=== PATIENT | male | born 1945 | race Caucasian/White ===

== ENCOUNTER 2020-10-09 07:42 | Outpatient (REF) | payer MEDICARE, OTHER, SELFPAY ==
--- NOTE | 2020-10-09 07:45 | CT_ITS ---
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 COMPARISON: Chest x-ray 12/20/[address] chest 08/09/2019 TECHNIQUE: Multidetector volumetric CT imaging of the chest was done. Axial MIP volume rendering provided. Sagittal and coronal reformatted images were obtained. This CT examination was performed using dose optimization techniques as appropriate, variously including the following: *Automated exposure control *Adjustment of mA and/or kV according to patient size (this includes techniques or standardized protocols for targeted exams where dose is matched to indication/reason for exam; i.e. extremities or head) *Use of iterative reconstruction technique DLP: 230 mGy-cm FINDINGS: SIGN INSTALLER: Well-expanded left lung. The right lung is moderately expanded with moderate pleural thickening all around. LUNGS: The right lung is hypoexpanded with bibasilar compressive atelectasis. Minimal atelectatic changes and ground-glass density are seen in the right middle lobe and lingula. There is a patchy opacity in the right upper lobe likely atelectasis or scarring. MEDIASTINUM: Heart size and pulmonary vascularity are normal. There are coronary artery calcifications. No abnormal lymph node or mass seen. No pericardial effusion. The thyroid lobes are symmetrical and normal. PLEURA: There is extensive bilateral pleural thickening and calcification and small loculated basilar pleural effusion. The pleural thickening is more extensive along the right lung apex. AXILLA: No lymphadenopathy. UPPER ABDOMEN: Visualized liver, spleen, pancreas, and bilateral adrenal glands are unremarkable. There is a 2.6 cm cyst upper pole left kidney. Suspect small dependent gallstone measuring 1.1 cm. OSSEOUS STRUCTURES: No lytic or sclerotic process seen. There are median sternotomy sutures from previous intervention. CT/CT chest wo con IMPRESSION: Decreased right lung volume with bibasilar compressive atelectasis. Airspace consolidation seen previously is less appreciated at this time. There is more parenchymal thickening, atelectasis and scarring. Extensive bilateral pleural calcification, thickening and loculated effusions at the base. The pleural thickening is more extensive in the right upper lobe apex. The above findings are most consistent with asbestosis exposure. Continued CT chest followup is recommended yearly.
== END 2020-10-09 07:43 | disposition home or self-care (01) ==
LOC: HO.CT 07:42
PROVIDERS: Visit Provider Hospitalist
DX: J61 Pneumoconiosis due to asbestos and other mineral fibers (principal); J84.10 Pulmonary fibrosis, unspecified
CPT/HCPCS: 71250

== ENCOUNTER 2020-12-04 08:15 | Outpatient (REF) | payer MEDICARE, OTHER, SELFPAY ==
[2020-12-04 11:24] LABS: Estimated Average Glucose 194 mg/dL; Hemoglobin A1c % 8.4 %
[2020-12-04 11:43] LABS: Alanine Aminotransferase 46 U/L (0-40); Anion Gap 14 (12-20); Blood Urea Nitrogen 29 mg/dL (9-16); Carbon Dioxide 33 mmol/L (22-29); Chloride 103 mmol/L (96-108); Estimated Glomerular Filt Rate 37; Glucose Fasting 105 mg/dL (60-99); Potassium 4.7 mmol/L (3.3-5.1); Sodium 145 mmol/L (135-145)
[2020-12-04 12:25] LABS: Creatinine Urine 61.49 mg/dL; Microalbum/Creatinine Ratio Ur 11.3 ug/mg cr
== END 2020-12-04 08:16 | disposition home or self-care (01) ==
LOC: HO.HMGCLDS 08:15
PROVIDERS: PCP Family Medicine; Visit Provider Family Medicine
DX: J61 Pneumoconiosis due to asbestos and other mineral fibers (principal); J84.10 Pulmonary fibrosis, unspecified
CPT/HCPCS: 36415; 80051; 82043; 82550; 82565; 82947; 83036; 84460; 84520

== ENCOUNTER → 2020-12-24 13:15 | Outpatient (BNVA) | payer MEDICARE, OTHER, SELFPAY | PROVIDERS: PCP Family Medicine; Visit Provider Internal Medicine Cardiovascular Disease | DX: I25.10 Atherosclerotic heart disease of native coronary artery without angina pectoris (principal); I10 Essential (primary) hypertension; I35.0 Nonrheumatic aortic (valve) stenosis; Z95.1 Presence of aortocoronary bypass graft | CPT/HCPCS: 93005; 99212 ==

== ENCOUNTER → 2021-01-04 09:57 | Outpatient (BNVA) | payer MEDICARE, OTHER, SELFPAY | PROVIDERS: PCP Family Medicine; Visit Provider Hospitalist | DX: J84.10 Pulmonary fibrosis, unspecified (principal); J61 Pneumoconiosis due to asbestos and other mineral fibers; J96.11 Chronic respiratory failure with hypoxia; J98.4 Other disorders of lung; R91.8 Other nonspecific abnormal finding of lung field | CPT/HCPCS: 99212 ==

== ENCOUNTER 2021-07-07 07:47 | Outpatient (REF) | payer MEDICARE, OTHER, SELFPAY ==
[2021-07-07 11:39] LABS: Alanine Aminotransferase 29 U/L (0-40); Anion Gap 14 (12-20); Blood Urea Nitrogen 35 mg/dL (9-16); Carbon Dioxide 29 mmol/L (22-29); Chloride 102 mmol/L (96-108); Cholesterol 166 mg/dL; Estimated Glomerular Filt Rate 40; Glucose Fasting 185 mg/dL (60-99); HDL Cholesterol 70 mg/dL; LDL Cholesterol Calculated 72 mg/dl; Potassium 4.2 mmol/L (3.3-5.1); Sodium 141 mmol/L (135-145); Triglycerides 123 mg/dL
[2021-07-07 12:05] LABS: Estimated Average Glucose 189 mg/dL; Hemoglobin A1c % 8.2 %
== END 2021-07-07 07:48 | disposition home or self-care (01) ==
LOC: HO.HMGCLDS 07:47
PROVIDERS: PCP Family Medicine; Visit Provider Family Medicine
DX: I10 Essential (primary) hypertension (principal); E78.00 Pure hypercholesterolemia, unspecified; E11.9 Type 2 diabetes mellitus without complications; Z79.899 Other long term (current) drug therapy
CPT/HCPCS: 36415; 80051; 80061; 82550; 82565; 82947; 83036; 84460; 84520

== ENCOUNTER → 2021-08-04 11:07 | Outpatient (BNVA) | payer MEDICARE, OTHER, SELFPAY | PROVIDERS: PCP Family Medicine; Visit Provider Internal Medicine Cardiovascular Disease | DX: I35.0 Nonrheumatic aortic (valve) stenosis (principal); I10 Essential (primary) hypertension; Z95.1 Presence of aortocoronary bypass graft | CPT/HCPCS: 99212 ==

== ENCOUNTER 2021-12-09 08:22 | Outpatient (REF) | payer MEDICARE, OTHER, SELFPAY ==
[2021-12-09 11:20] LABS: MANUAL DIFF FLAG NO
[2021-12-09 11:27] LABS: Basophils Percent Auto 0.2 % (0-2); Eosinophils Absolute Auto 0.2 X10*3/uL (0.0-0.4); Hematocrit 40.4 % (42.0-52.0); Hemoglobin 13.9 g/dl (14.0-18.0); Imm Gran Abs Auto 0.01 X10*3/uL (0.00-0.03); Imm Gran Pct Auto 0.2 % (0.0-0.4); Lymphocytes Absolute Auto 1.5 X10*3/uL (1.2-4.9); Lymphocytes Percent Auto 24.4 % (20-40); Mean Corpuscular HGB Conc 34.4 g/dl (31.0-36.0); Mean Corpuscular Hemoglobin 31.4 pg (27.0-33.0); Mean Corpuscular Volume 91.4 fL (80.0-98.0); Mean Platelet Volume 11.1 fL (9.4-12.4); Monocytes Absolute Auto 0.5 X10*3/uL (0.1-1.2); Monocytes Percent Auto 7.8 % (2-11); Neutrophils Absolute Auto 3.9 x10*3/uL (2.0-8.3); Neutrophils Percent Auto 64.4 % (45-73); Platelet Count 164 X10*3/uL (160-400); Red Blood Count 4.42 X10*6/uL (4.60-5.80); Red Cell Distribution Width 12.3 % (11.0-16.0)
[2021-12-09 11:43] LABS: Estimated Average Glucose 252 mg/dL; Hemoglobin A1c % 10.4 %
[2021-12-09 11:54] LABS: Alanine Aminotransferase 29 U/L (0-40); Anion Gap 11 (12-20); Aspartate Amino Transferase 21 U/L (5-37); Blood Urea Nitrogen 37 mg/dL (9-16); Carbon Dioxide 31 mmol/L (22-29); Chloride 103 mmol/L (96-108); Cholesterol 162 mg/dL; Estimated Glomerular Filt Rate 36; Glucose Fasting 225 mg/dL (60-99); HDL Cholesterol 64 mg/dL; Iron 106 mcg/dL (45-160); LDL Cholesterol Calculated 82 mg/dl; Percent Iron Saturation 34 % (15-50); Potassium 4.4 mmol/L (3.3-5.1); Sodium 141 mmol/L (135-145); Total Iron Binding Capacity 311 mcg/dL (228-428); Triglycerides 80 mg/dL; Unsaturated Iron Binding 205 ug/dL
== END 2021-12-09 08:23 | disposition home or self-care (01) ==
LOC: HO.HMGCLDS 08:22
PROVIDERS: Visit Provider Family Medicine
DX: I10 Essential (primary) hypertension (principal); E11.9 Type 2 diabetes mellitus without complications; E78.00 Pure hypercholesterolemia, unspecified; D50.9 Iron deficiency anemia, unspecified; Z79.899 Other long term (current) drug therapy
CPT/HCPCS: 36415; 80051; 80061; 82550; 82565; 82947; 83036; 83540; 84450; 84460; 84520; 85025

== ENCOUNTER 2022-02-14 07:47 | Outpatient (REF) | payer MEDICARE, OTHER, SELFPAY ==
[2022-02-14 11:38] LABS: Glucose Fasting 92 mg/dL (60-99)
[2022-02-14 12:03] LABS: Estimated Average Glucose 197 mg/dL; Hemoglobin A1c % 8.5 %
[2022-02-14 12:08] LABS: Creatinine Urine 68.49 mg/dL; Microalbum/Creatinine Ratio Ur 14.6 ug/mg cr
== END 2022-02-14 07:48 | disposition home or self-care (01) ==
LOC: HO.HMGCLDS 07:47
PROVIDERS: Visit Provider Family Medicine
DX: E11.9 Type 2 diabetes mellitus without complications (principal)
CPT/HCPCS: 36415; 82043; 82947; 83036

== ENCOUNTER 2022-03-22 11:22 | Outpatient (REF) | payer MEDICARE, OTHER, SELFPAY ==
[2022-03-22 12:07] LABS: COVID-19 Test Negative (Negative); IDNOW Serial# 16C4AD1C
== END 2022-03-22 11:23 | disposition home or self-care (01) ==
LOC: HO.LAB 11:22
PROVIDERS: PCP Family Medicine; Referring Provider Family Medicine; Visit Provider Internal Medicine
DX: Z20.822 Contact with and (suspected) exposure to COVID-19 (principal)
CPT/HCPCS: 87635; C9803

== ENCOUNTER 2022-04-08 12:20 | Outpatient (REF) | payer MEDICARE, OTHER, SELFPAY ==
--- NOTE | ~2022-04-08 | XR_ITS ---
EXAMINATION: XR CHEST CLINICAL INFORMATION: Shortness of breath. Dyspnea. COMPARISON: 12/20/2019 TECHNIQUE: 2 views of the chest were obtained. FINDINGS: Median sternotomy wires appear intact. The lungs are well expanded. Small bilateral pleural effusions with atelectasis. Fluid extends to the right apex, similar to multiple prior imaging. No edema. Chronic markings at the lower lungs. No pneumothorax. The cardiomediastinal silhouette is unchanged. XR/XR chest 2V IMPRESSION: Similar appearance of bilateral small pleural effusions. Persistent fluid tracking to the right apex. No new consolidation. Chronic markings at the lower lungs.
[2022-04-08 12:30] LABS: MANUAL DIFF FLAG NO
[2022-04-08 13:10] LABS: Basophils Percent Auto 0.1 % (0-2); Eosinophils Absolute Auto 0.2 X10*3/uL (0.0-0.4); Eosinophils Percent Auto 2.5 % (0-4); Hematocrit 42.4 % (42.0-52.0); Hemoglobin 14.7 g/dl (14.0-18.0); Imm Gran Abs Auto 0.03 X10*3/uL (0.00-0.03); Imm Gran Pct Auto 0.3 % (0.0-0.4); Lymphocytes Absolute Auto 1.1 X10*3/uL (1.2-4.9); Lymphocytes Percent Auto 11.6 % (20-40); Mean Corpuscular HGB Conc 34.7 g/dl (31.0-36.0); Mean Corpuscular Hemoglobin 31.4 pg (27.0-33.0); Mean Corpuscular Volume 90.6 fL (80.0-98.0); Mean Platelet Volume 10.6 fL (9.4-12.4); Monocytes Absolute Auto 0.7 X10*3/uL (0.1-1.2); Monocytes Percent Auto 7.1 % (2-11); Neutrophils Absolute Auto 7.4 x10*3/uL (2.0-8.3); Neutrophils Percent Auto 78.4 % (45-73); Platelet Count 205 X10*3/uL (160-400); Red Blood Count 4.68 X10*6/uL (4.60-5.80); Red Cell Distribution Width 12.8 % (11.0-16.0); White Blood Count 9.5 X10*3/uL (4.8-10.8)
[2022-04-08 13:44] LABS: Anion Gap 15 (12-20); Blood Urea Nitrogen 35 mg/dL (9-16); Carbon Dioxide 28 mmol/L (22-29); Chloride 96 mmol/L (96-108); Estimated Glomerular Filt Rate 31; Potassium 4.3 mmol/L (3.3-5.1); Sodium 135 mmol/L (135-145)
== END 2022-04-08 12:21 | disposition home or self-care (01) ==
LOC: HO.XRAY 12:20
PROVIDERS: PCP Family Medicine; Visit Provider Family Medicine
DX: R06.02 Shortness of breath (principal); I25.10 Atherosclerotic heart disease of native coronary artery without angina pectoris; D50.9 Iron deficiency anemia, unspecified; I10 Essential (primary) hypertension
CPT/HCPCS: 36415; 71046; 80051; 82565; 84520; 85025

== ENCOUNTER → 2022-05-24 09:41 | Outpatient (BNVA) | payer MEDICARE, OTHER, SELFPAY | PROVIDERS: PCP Family Medicine; Visit Provider Hospitalist | DX: J61 Pneumoconiosis due to asbestos and other mineral fibers (principal); J84.10 Pulmonary fibrosis, unspecified; J96.11 Chronic respiratory failure with hypoxia; J98.4 Other disorders of lung; R91.8 Other nonspecific abnormal finding of lung field | CPT/HCPCS: 94618; 99212 ==

== ENCOUNTER 2022-11-14 13:51 | Outpatient (REF) | payer MEDICARE, OTHER, SELFPAY ==
--- NOTE | ~2022-11-14 | XR_ITS ---
EXAMINATION: XR CHEST CLINICAL INFORMATION: Bronchopneumonia. COMPARISON: Multiple prior studies. Most recent is Chest x-ray 04/08/2022 TECHNIQUE: 2 views of the chest were obtained. FINDINGS: Status post median sternotomy. Cardiac mediastinal contours normal. No pulmonary vascular congestion. Significant pleural density in both the right and left hemithorax, greater on the right and left with associated pleural calcifications consistent with asbestosis exposure. This is chronic remaining similar prior studies. Chronic reticular markings of lungs likely due to linear scarring. No acute airspace disease. No pulmonary vascular congestion. XR/XR chest 2V IMPRESSION: 1. No acute abnormality of chest. 2. Chronic bilateral pleural density with pleural calcifications consistent with asbestosis exposure.
[2022-11-14 15:30] LABS: MANUAL DIFF FLAG NO
[2022-11-14 15:56] LABS: Basophils Percent Auto 0.1 % (0-2); Eosinophils Absolute Auto 0.1 X10*3/uL (0.0-0.4); Eosinophils Percent Auto 1.5 % (0-4); Hematocrit 33.1 % (42.0-52.0); Imm Gran Abs Auto 0.03 X10*3/uL (0.00-0.03); Imm Gran Pct Auto 0.4 % (0.0-0.4); Lymphocytes Absolute Auto 1.1 X10*3/uL (1.2-4.9); Lymphocytes Percent Auto 14.3 % (20-40); Mean Corpuscular HGB Conc 33.2 g/dl (31.0-36.0); Mean Corpuscular Hemoglobin 31.1 pg (27.0-33.0); Mean Corpuscular Volume 93.5 fL (80.0-98.0); Mean Platelet Volume 9.4 fL (9.4-12.4); Monocytes Absolute Auto 0.5 X10*3/uL (0.1-1.2); Monocytes Percent Auto 6.8 % (2-11); Neutrophils Percent Auto 76.9 % (45-73); Platelet Count 224 X10*3/uL (160-400); Red Blood Count 3.54 X10*6/uL (4.60-5.80); Red Cell Distribution Width 13.2 % (11.0-16.0); White Blood Count 7.8 X10*3/uL (4.8-10.8)
[2022-11-14 16:18] LABS: Anion Gap 13 (12-20); Blood Urea Nitrogen 29 mg/dL (9-16); Calcium 8.6 mg/dL (8.4-10.2); Carbon Dioxide 29 mmol/L (22-29); Chloride 104 mmol/L (96-108); Estimated Glomerular Filt Rate 40; Glucose Random 174 mg/dL (60-115); Potassium 4.4 mmol/L (3.3-5.1); Sodium 142 mmol/L (135-145)
[2022-11-14 16:41] LABS: Erythrocyte Sedimentation Rate 100 MM/HR (0-15)
[2022-11-16 06:09] LABS: Immunoglobulin E 21 kU/L (<OR=114)
[2022-11-16 14:33] LABS: IgA 580 mg/dL (70-320); IgG 1196 mg/dL (600-1540); IgM 31 mg/dL (50-300)
== END 2022-11-14 13:52 | disposition home or self-care (01) ==
LOC: HO.XRAY 13:51
PROVIDERS: PCP Family Medicine; Visit Provider Hospitalist
DX: J18.0 Bronchopneumonia, unspecified organism (principal); J84.10 Pulmonary fibrosis, unspecified; J61 Pneumoconiosis due to asbestos and other mineral fibers; J96.11 Chronic respiratory failure with hypoxia; J98.4 Other disorders of lung; R91.8 Other nonspecific abnormal finding of lung field
CPT/HCPCS: 36415; 71046; 80048; 82784; 82785; 85025; 85652; 87070; 87205; 94640; 99212

== ENCOUNTER → 2022-12-08 11:08 | Outpatient (BNVA) | payer MEDICARE, OTHER, SELFPAY | PROVIDERS: PCP Family Medicine; Visit Provider Hospitalist | DX: J18.0 Bronchopneumonia, unspecified organism (principal); J61 Pneumoconiosis due to asbestos and other mineral fibers; J96.11 Chronic respiratory failure with hypoxia; J84.10 Pulmonary fibrosis, unspecified; J98.4 Other disorders of lung; J91.8 Pleural effusion in other conditions classified elsewhere; Z99.81 Dependence on supplemental oxygen | CPT/HCPCS: 99212 ==

== ENCOUNTER 2022-12-13 08:11 | Outpatient (REF) | payer MEDICARE, OTHER, SELFPAY ==
[2022-12-13 11:29] LABS: MANUAL DIFF FLAG NO
[2022-12-13 11:35] LABS: Basophils Percent Auto 0.2 % (0-2); Eosinophils Absolute Auto 0.2 X10*3/uL (0.0-0.4); Hematocrit 39.7 % (42.0-52.0); Hemoglobin 13.3 g/dl (14.0-18.0); Imm Gran Abs Auto 0.01 X10*3/uL (0.00-0.03); Imm Gran Pct Auto 0.2 % (0.0-0.4); Lymphocytes Absolute Auto 1.3 X10*3/uL (1.2-4.9); Lymphocytes Percent Auto 21.6 % (20-40); Mean Corpuscular HGB Conc 33.5 g/dl (31.0-36.0); Mean Corpuscular Hemoglobin 30.6 pg (27.0-33.0); Mean Corpuscular Volume 91.5 fL (80.0-98.0); Mean Platelet Volume 11.2 fL (9.4-12.4); Monocytes Absolute Auto 0.5 X10*3/uL (0.1-1.2); Monocytes Percent Auto 7.6 % (2-11); Neutrophils Percent Auto 66.4 % (45-73); Platelet Count 158 X10*3/uL (160-400); Red Blood Count 4.34 X10*6/uL (4.60-5.80); Red Cell Distribution Width 13.1 % (11.0-16.0); White Blood Count 6.1 X10*3/uL (4.8-10.8)
[2022-12-13 11:57] LABS: Microalbum/Creatinine Ratio Ur 8.7 ug/mg cr
[2022-12-13 11:59] LABS: Anion Gap 16 (12-20); Blood Urea Nitrogen 35 mg/dL (9-16); Carbon Dioxide 24 mmol/L (22-29); Chloride 108 mmol/L (96-108); Estimated Glomerular Filt Rate 30; Glucose Fasting 91 mg/dL (60-99); Potassium 4.6 mmol/L (3.3-5.1); Sodium 143 mmol/L (135-145)
[2022-12-13 12:12] LABS: Estimated Average Glucose 166 mg/dL; Hemoglobin A1c % 7.4 %
== END 2022-12-13 08:12 | disposition home or self-care (01) ==
LOC: HO.HMGCLDS 08:11
PROVIDERS: PCP Psychiatry & Neurology Psychiatry; Visit Provider Family Medicine
DX: I10 Essential (primary) hypertension (principal); E11.9 Type 2 diabetes mellitus without complications; D50.9 Iron deficiency anemia, unspecified
CPT/HCPCS: 36415; 80051; 82043; 82565; 82947; 83036; 84520; 85025

== ENCOUNTER 2023-06-07 09:42 | Outpatient (AMB) | payer MEDICARE, OTHER, SELFPAY ==
[2023-06-07 09:50] VITALS: BP 138/70; PULSE 60; O2SAT 94; BMI 33.1
--- NOTE | 2023-06-07 09:50 | MHC.OFFVIS ---
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 The patient has underlying chronic respiratory failure and is currently using oxygen. He recently had a CT scan of the chest at [facility] demonstrating the ongoing fibrotic changes and pleural effusion. No concerning findings, although, will have to look at the CT scans from [facility]. In the meantime the last several days he started developing worsening respiratory complaints with worsening productive cough reason sputum. He also developed worsening shortness of breath and hypoxia and had to increase his oxygen to 4 L. he has used inhalers in the past without any significant improvement. In the office we did use a nebulizer and he did get some relief, although, he was still having expiratory wheezing. Patient also has been complaining of feeling warm and chills. Denies any sick contacts. 01/04/2022 the patient is here for pulmonary follow-up visit. Since we last spoke the patient did require quadruple bypass surgery. His cardiac status is better at this time. He continues with the oxygen between 2-4 L pulse. He is able to remove the oxygen at rest. He maintains a pulse ox above 90%. His shortness of breath is about the same. [id number] severity. Denies any significant coughing or denies any significant chest pain. The patient did have a CT scan of the chest that was personally by me them still demonstrating the evidence of the asbestos related lung disease likely with some component of asbestos plaques and also some degree of asbestosis resulting in some interstitial lung disease. At this point appears that the disease is burnt-out. The patient does not require any additional prednisone. He does have a restrictive lung disease. And therefore resulting the oxygen requirements. Patient also has some nodular densities. The plan is to repeat the CT scan [address] scan is no different in a year's time that we can hold off on serial CT scans and follow him clinically. 05/24/2022 the patient is here for a pulmonary follow-up visit. the patient complains of dyspnea on exertion. The oxygen does help him. He has been having issues getting oxygen from his [employer] company. In the meantime in the office the patient has been using his oxygen at 4 L pulse. He typically decrease it to 2 L pulse when he is resting. In the office we did do a 6 minute walk test. The patient did appropriately well on the 4 L pulse with activity maintaining a pulse ox above 92%. 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 He has a bilateral pleural effusions also related to the asbestos disease. He is currently being evaluated by Cardiology regarding his underlying cardiovascular disease as well. the patient does need to have a CT scan of the chest to follow-up with his pulmonary nodules his asbestos related lung disease with asbestosis and pulmonary fibrosis. However, will go ahead and postpone the CT scan to his follow-up visit in the springtime. In the meantime if the patient develops any worsening symptoms prior to that he is to call so we can reassess on an earlier time. 11/14/2022 the patient is here for sick visit. The patient has been not feeling well since the last week of October. Started developing worsening cough in addition to shortness of breath. Moderate severity. He was given a course of prednisone which initially helped but then symptoms worsened. He has gotten very weak. He is currently in a wheelchair because very hard for him to walk. Complains of the shortness of breath. He is also very congested. He is bringing up some green grayish sputum. Difficult to expectorate. Moderate severity. His was concerned with his worsening respiratory decompensation and she did want to bring to the ER at some point. The patient was reluctant to do so. Therefore he is here today. We were able to take a listen to his lungs and he does have bilateral crackles but he does have interstitial lung disease from his fibrosis and is asbestos related lung disease. The patient did get a breathing treatment and was able to expectorate his sputum specimen for culture. He also underwent blood work in addition to a chest x-ray. I did briefly look at the x-ray it appeared that he had some slight increase hazy opacity in the left lower and left mid area in conjunction with his chronic disease. The final read was unchanged. However very difficult to assess the abnormal chest x-ray. The patient has been using the oxygen. His oxygen levels have been steady. He has not had to increasing. Therefore, will start the patient on antibiotics to treat him for pneumonia in addition to on lower course dose of prednisone. Will follow-up in a couple weeks. 12/08/2022 the patient is here for a pulmonary follow-up visit. Currently patient is doing better. He completed the antibiotics in the prednisone. He is back to his baseline therapy. He is back to his baseline. We did review his chest x-ray demonstrating bilateral airspace disease consistent with bronchopneumonia. We also reviewed his blood work. We also did try to send a sputum culture although is contaminated by saliva. It could not be process. The patient continues uses oxygen with good effect. Continues to have dyspnea on exertion [id number] severity. Otherwise the patient is at baseline. 06/07/2023 the patient is here for pulmonary follow-up visit. The patient overall is feeling better. He had a bout of a COPD exacerbation and bronchitis which required antibiotics and prednisone. He did improve significantly after the prednisone antibiotics. He is back to his baseline. May was a talk month however because was very humid and hot. He spent a lot of time in the AC. He continues uses oxygen 2 L pulse. He did wonder about a portable oxygen concentrator. I did not advise him for 1 unless he is doing traveling where he may need additional portability outside of the home. But you for the most part he is staying local. The patient did have a chest x-ray which I personally reviewed in November demonstrating increased interstitial lung disease and bilateral pleural effusions. Will go ahead and have him repeat the x-ray sometime in the fall. In addition to this he does use CPAP. CPAP therapy continues to be affecting beneficial. He does get supplies from [employer]. I will send a script over. [facility] Medical History Asbestosis Chronic respiratory failure Chronic restrictive lung disease Pulmonary fibrosis Pulmonary nodules Surgical History (Updated 08/04/21 @ 11:17 by GILBERT Haley) History of open heart surgery Family History (Updated 08/04/21 @ 11:19 by GILBERT Haley) Mother Ovarian cancer Father Heart attack Brother Heart attack Sister Diabetes Social History (Updated 05/24/22 @ 10:02 by GILBERT Mad[place]) Alcohol intake: former Year quit: 1989 Patient Tobacco Use Status: Former Tobacco user Quit Date: YEARS AGO QUIT AT 19 Y/O Tobacco use type: Cigarette Years Smoked: 8 Years Review of Systems Const Denies night sweats ENT Denies change in voice, Denies lip swelling, Denies mouth pain, Reports nasal congestion, Reports nasal discharge and Denies tongue swelling Card Denies chest pain and Reports dyspnea on exertion Resp Denies change in phlegm color, Denies chest congestion, Reports cough, Denies hemoptysis, Denies excessive phlegm production, Denies pain on inspiration, Denies pain with cough and Reports dyspnea on exertion GI Denies abdominal pain Musc Reports abnormal gait and Reports muscle weakness Neuro Denies Neuro-related abnormal movements and Reports abnormal gait Psych Denies no additional complaints Bi/Lymph Denies easy bleeding and Denies lymphadenopathy Aller/Immun Denies lip swelling and Denies tongue swelling Physical Exam Vital Signs: Last Vital Signs Pulse 60 06/07/23 09:50 BP 138/70 06/07/23 09:50 Pulse Ox 94 06/07/23 09:50 Oxygen Delivery Method Room Air 06/07/23 09:50 BMI result Body Mass Index 33.1 Const General: alert HEENT General nose exam: Abnormal external nose present and Nasal discharge present Neck Neck: Yes normal visual inspection, Yes full ROM and Yes no lymphadenopathy Chest Chest palpation & inspection: normal inspection of the chest Resp Auscultation: no crackles, no rales and diminished lung sounds Cardio Rate: regular rate Rhythm: regular rhythm Heart sounds: S1 normal heart sound present and S2 normal heart sound present GI Palpation (GI): Soft to palpation and nontender Auscultation: normal bowel sounds General: Yes no CVA tenderness Back/Spine/Pelvis Back: no CVA tenderness Assessment & Plan Assessment & Plan (1) Pulmonary fibrosis: Code(s): J84.10 - Pulmonary fibrosis, unspecified (2) Asbestosis: Code(s): J61 - Pneumoconiosis due to asbestos and other mineral fibers (3) Chronic respiratory failure: Code(s): J96.10 - Chronic respiratory failure, unspecified whether with hypoxia or hypercapnia Qualifiers: Respiratory failure complication: hypoxia Qualified Code(s): J96.11 - Chronic respiratory failure with hypoxia (4) Chronic restrictive lung disease: Code(s): J98.4 - Other disorders of lung (5) Pulmonary nodules: Code(s): R91.8 - Other nonspecific abnormal finding of lung field Plan Continue oxygen supplementationn Nebulized therapy with DuoNeb q.i.d. diuresis as tolerated CXR F/U 8-12 months Orders: Orders XR chest 2V Today J98.4 - Other disorders of lung Coding Level of Care Code Est Pt Level 4 (50436) Diagnoses Pulmonary fibrosis J84.10 Asbestosis J61 Chronic respiratory failure J96.11 Respiratory failure complication: hypoxia Chronic restrictive lung disease J98.4 Pulmonary nodules R91.8 Time Spent (min) 19
== END 2023-06-07 10:16 | disposition home or self-care (01) ==
PROVIDERS: PCP Family Medicine; Visit Provider Hospitalist
DX: J84.10 Pulmonary fibrosis, unspecified (principal); J61 Pneumoconiosis due to asbestos and other mineral fibers; J96.11 Chronic respiratory failure with hypoxia; J98.4 Other disorders of lung; R91.8 Other nonspecific abnormal finding of lung field
CPT/HCPCS: 99214

== ENCOUNTER → 2023-06-07 09:42 | Outpatient (BNVA) | payer MEDICARE, OTHER, SELFPAY | PROVIDERS: Visit Provider Hospitalist | DX: J98.4 Other disorders of lung (principal); J96.11 Chronic respiratory failure with hypoxia; T57.8X1A Toxic effect of other specified inorganic substances, accidental (unintentional), initial encounter; J68.4 Chronic respiratory conditions due to chemicals, gases, fumes and vapors; J90 Pleural effusion, not elsewhere classified; Y92.9 Unspecified place or not applicable; R91.8 Other nonspecific abnormal finding of lung field; Z87.891 Personal history of nicotine dependence; Z99.81 Dependence on supplemental oxygen | CPT/HCPCS: 99212 ==

== ENCOUNTER 2023-08-23 08:52 | Outpatient (REF) | payer MEDICARE, OTHER, SELFPAY ==
[2023-08-23 11:15] LABS: MANUAL DIFF FLAG NO
[2023-08-23 11:24] LABS: Basophils Percent Auto 0.3 % (0-2); Eosinophils Absolute Auto 0.3 X10*3/uL (0.0-0.4); Eosinophils Percent Auto 4.1 % (0-4); Hematocrit 41.9 % (42.0-52.0); Hemoglobin 14.2 g/dl (14.0-18.0); Imm Gran Abs Auto 0.01 X10*3/uL (0.00-0.03); Imm Gran Pct Auto 0.2 % (0.0-0.4); Lymphocytes Absolute Auto 1.3 X10*3/uL (1.2-4.9); Lymphocytes Percent Auto 21.5 % (20-40); Mean Corpuscular HGB Conc 33.9 g/dl (31.0-36.0); Mean Corpuscular Hemoglobin 31.2 pg (27.0-33.0); Mean Corpuscular Volume 92.1 fL (80.0-98.0); Mean Platelet Volume 10.7 fL (9.4-12.4); Monocytes Absolute Auto 0.6 X10*3/uL (0.1-1.2); Monocytes Percent Auto 9.4 % (2-11); Neutrophils Percent Auto 64.5 % (45-73); Platelet Count 155 X10*3/uL (160-400); Red Blood Count 4.55 X10*6/uL (4.60-5.80); White Blood Count 6.2 X10*3/uL (4.8-10.8)
[2023-08-23 11:33] LABS: Estimated Average Glucose 146 mg/dL; Hemoglobin A1c % 6.7 % (<6.0)
[2023-08-23 11:42] LABS: Alanine Aminotransferase 24 U/L (0-40); Anion Gap 13 (12-20); Aspartate Amino Transferase 23 U/L (5-37); Carbon Dioxide 28 mmol/L (22-29); Chloride 105 mmol/L (96-108); Cholesterol 162 mg/dL (<200); Estimated Glomerular Filt Rate 33; Glucose Fasting 102 mg/dL (60-99); HDL Cholesterol 69 mg/dL (>40); LDL Cholesterol Calculated 78 mg/dL (<100); Potassium 4.2 mmol/L (3.3-5.1); Sodium 142 mmol/L (135-145); Triglycerides 76 mg/dL (<150)
[2023-08-23 14:02] LABS: Blood Urea Nitrogen 38 mg/dL (9-16)
== END 2023-08-23 08:53 | disposition home or self-care (01) ==
LOC: HO.HMGCLDS 08:52
PROVIDERS: PCP Family Medicine; Visit Provider Family Medicine
DX: D50.9 Iron deficiency anemia, unspecified (principal); I10 Essential (primary) hypertension; E11.9 Type 2 diabetes mellitus without complications; E78.00 Pure hypercholesterolemia, unspecified; Z79.899 Other long term (current) drug therapy
CPT/HCPCS: 36415; 80051; 80061; 82550; 82565; 82947; 83036; 84450; 84460; 84520; 85025

== ENCOUNTER 2023-11-30 10:06 | Emergency (ER) | payer MEDICARE, OTHER, SELFPAY ==
[2023-11-30 10:14] VITALS: BP 122/49; PULSE 70; RESP 20; TEMP 37.1; O2SAT 100; BMI 33.0
[2023-11-30 12:00] VITALS: BP 133/67; PULSE 71; RESP 18; TEMP 36.3; O2SAT 91
--- NOTE | 2023-11-30 12:03 | ED_ITS ---
HPI - General Adult General Chief complaint: Epistaxis Stated complaint: nosebleed Time Seen by Provider: 11/30/23 11:58 Source: patient Mode of arrival: ambulatory Limitations: no limitations History of Present Illness HPI narrative: Patient is an 78-year-old male presenting to the emergency department with complaint of epistaxis from right naris for approximately 2 hours prior to arrival. Patient referred to the ED by Dr. Westfall as patient had a scheduled appointment there but was sent here due to nosebleed. Patient reports cold symptoms for the past 1-2 weeks and states nose has been more dry than normal. He also reports that he uses CPAP at night and although the areas humidified, this also dries out his nares. Last night he did apply Vaseline inside his nares to prevent the dryness. He takes a daily aspirin but is not anticoagulated. MD complaint: Epistaxis Onset (ago): hour(s) Associated symptoms: other (Nasal congestion) Treatments prior to arrival: other (dressing) Related Data Home Medications Medication Instructions Recorded Confirmed ascorbate calcium (vitamin C) 500 500 mg PO DAILY 12/24/20 08/04/21 mg tablet aspirin 81 mg tablet,delayed 81 mg PO DAILY 12/24/20 08/04/21 release (Adult Low Dose Aspirin) atorvastatin 80 mg tablet 80 mg PO DAILY 12/24/20 08/04/21 famotidine 10 mg tablet 10 mg PO DAILY 12/24/20 08/04/21 ferrous sulfate 325 mg (65 mg 325 mg PO DAILY 12/24/20 08/04/21 iron) tablet metoprolol tartrate 25 mg tablet 12.5 mg PO BID 12/24/20 08/04/21 multivitamin 1 tab PO DAILY 12/24/20 08/04/21 omega-3 fatty acids 500 mg capsule 500 mg PO DAILY 12/24/20 08/04/21 sertraline 100 mg tablet 200 mg PO DAILY 12/24/20 08/04/21 torsemide 20 mg tablet 20 mg PO DAILY 01/04/21 08/04/21 insulin glargine 100 unit/mL 25 unit subcut QPM 05/24/22 subcutaneous solution (Lantus U-100 Insulin) ipratropium 0.5 mg-albuterol 3 mg ml inhalation QID 05/24/22 (2.5 mg base)/3 mL nebulization soln bupropion HCl 150 mg tablet,12 hr 150 mg PO QAM 11/14/22 sustained-release Oxygen Home Use 12/08/22 nebulizers 12/08/22 Allergies Allergy/AdvReac Type Severity Reaction Status Date / Time No Known Allergies Allergy Verified 11/30/23 10:16 [No Known Allergies*] Review of Systems Review of Systems: As per HPI. Yes all other systems are reviewed and are negative Constitutional: Constitutional: Reports as per HPI [facility] Past Medical History Medical History Asbestosis Chronic respiratory failure Chronic restrictive lung disease Pulmonary fibrosis Pulmonary nodules Surgical History (Updated 08/04/21 @ 11:17 by GILBERT Haley) History of open heart surgery Family History Family History (Updated 08/04/21 @ 11:19 by GILBERT Haley) Mother Ovarian cancer Father Heart attack Brother Heart attack Sister Diabetes Social History Social History (Updated 05/24/22 @ 10:02 by GILBERT Madera) Alcohol intake: former Year quit: 1989 Patient Tobacco Use Status: Former Tobacco user Quit Date: YEARS AGO QUIT AT 19 Y/O Tobacco use type: Cigarette Years Smoked: 8 Years Advance Directives: No Advance Directives Information Provided: Yes Physical Exam ED Vital Signs: Vital Signs - 24 hr 11/30/23 10:14 11/30/23 12:00 Temperature 98.8 F 97.4 F Pulse Rate 70 71 Respiratory Rate 20 18 Blood Pressure 122/49 L 133/67 Pulse Oximetry 100 91 L Oxygen Delivery Method Room Air Room Air BMI result Body Mass Index 33.0 Vital signs have been reviewed and appear to be correct. Blood pressure normal. Heart rate normal. Respiratory rate normal. Temperature normal. Oxygen saturation low, rechecked and found to be 95% on room air. Const General: cooperative, healthy appearing and no acute distress Orientation/consciousness: oriented to person, oriented to place, oriented to time and patient oriented x3 Limitations: no limitations HENMT Head: Yes normocephalic and Yes atraumatic Ears: external ears normal General nose exam: Normal external nose present, Normal nasal mucous membranes and turbinates present, Normal septum present, No nasal discharge present and Other nasal findings present (dried blood noted around nares and on face) Face and sinus: Yes sinuses nontender and Yes face symmetric Mouth: oropharynx normal and moist mucous membranes Throat: Yes uvula midline Eyes Pupils: Equal, round and reactive pupils present Neck Neck: Yes normal visual inspection and Yes supple Resp Effort & Inspection: normal respiratory effort and able to speak in complete sentences Auscultation: clear to auscultation bilaterally Cardio Rate: regular rate Rhythm: regular rhythm Heart sounds: S1 normal heart sound present and S2 normal heart sound present GI Palpation (GI): Soft to palpation and nontender Auscultation: normoactive bowel sounds General: Yes no CVA tenderness Back/Spine/Pelvis Back: no CVA tenderness Skin General skin exam: elasticity normal and turgor normal Neuro General: oriented to person, oriented to place, oriented to time, patient oriented x3, moves all extremities, no focal motor deficits and CN's II-XI intact bilaterally Cranial nerves: Yes Equal, round and reactive pupils present Cognition (Neuro): normal cognition Extrem General: Yes full ROM, Yes no pedal edema and Yes no calf tenderness Psych Mental Status: mental status grossly normal Affect: normal affect Thought process: Normal thought process present Medical Decision Making Medical Decision Making MDM Narrative: Patient is an 78-year-old male presenting to the emergency department with complaint of epistaxis from right naris for approximately 2 hours prior to arrival. On exam patient is awake, A+Ox3, VS WNL, afebrile, normal neurological exam without focal deficits, physical exam findings as above. Given reported symptoms and physical exam findings, initial differential includes epistaxis. Given that bleeding stopped spontaneously while patient was in the waiting room, no additional interventions required at this time. Will refer to ENT for any ongoing symptoms. Patient instructed to follow-up with PCP. Return precautions discussed. Patient verbalized understanding of and agreement with plan. Differential Diagnosis Differential Diagnoses: The differential diagnosis associated with the presentation includes epistaxis External Record Review External record reviewed: Inpatient record, Office record and Outpatient record Discharge Plan Discharge Clinical Impression: Epistaxis Patient Disposition: Home, Self-Care Instructions: Nosebleed (ED) Additional Instructions: You were evaluated in the emergency department today for a nosebleed which stopped spontaneously without intervention. Your nosebleed is likely related to dryness due to your recent cold. You should begin using [id number]-[id number] nasal saline spray to both nostrils several times daily. You should also apply an unscented cream or Vaseline inside your nostrils before you go to bed and use your CPAP machine. Please follow-up with your primary care provider. Return to the emergency department if your nosebleed returns and is unable to be controlled or with any other concerning symptoms. Prescriptions: No Action sertraline 100 mg tablet 200 mg PO DAILY famotidine 10 mg tablet 10 mg PO DAILY multivitamin Tablet 1 tab PO DAILY omega-3 fatty acids 500 mg capsule 500 mg PO DAILY ascorbate calcium (vitamin C) 500 mg tablet 500 mg PO DAILY atorvastatin 80 mg tablet 80 mg PO DAILY metoprolol tartrate 25 mg tablet 12.5 mg PO BID aspirin [Adult Low Dose Aspirin] 81 mg tablet,delayed release (DR/EC) 81 mg PO DAILY ferrous sulfate 325 mg (65 mg iron) tablet 325 mg PO DAILY Lantus U-100 Insulin 100 unit/mL solution 25 unit subcut QPM torsemide 20 mg tablet 20 mg PO DAILY ipratropium-albuterol 0.5 mg-3 mg(2.5 mg base)/3 mL solution for nebulization inhalation QID bupropion HCl 150 mg tablet sustained-release 12 hr 150 mg PO QAM (DME) nebulizers Misc See Rx Instructions .ROUTE Rx Instructions: As directed (DME) Oxygen Home Use Kit See Rx Instructions .ROUTE Rx Instructions: As directed Referrals: Demario Reese [Physician] -
--- NOTE | 2023-11-30 12:22 | PC.NURSE ---
provider stephanie notified po2 91%- pt states he has a cold and hx pulmnonary fibrosis. no distress noted. no nosebleeding now
[2023-11-30 12:30] VITALS: O2SAT 95
== END 2023-11-30 12:33 | disposition home or self-care (01) ==
PROVIDERS: Emergency Provider Emergency Medicine; PCP Family Medicine
DX: R04.0 Epistaxis (principal); R09.81 Nasal congestion; Z79.899 Other long term (current) drug therapy
CPT/HCPCS: 99282; 99284

== ENCOUNTER 2024-01-17 07:53 | Outpatient (REF) | payer MEDICARE, OTHER, SELFPAY ==
[2024-01-17 11:33] LABS: MANUAL DIFF FLAG NO
[2024-01-17 11:41] LABS: Eosinophils Absolute Auto 0.2 X10*3/uL (0.0-0.4); Eosinophils Percent Auto 3.2 % (0-4); Hematocrit 39.9 % (42.0-52.0); Hemoglobin 13.8 g/dl (14.0-18.0); Imm Gran Abs Auto 0.01 X10*3/uL (0.00-0.03); Imm Gran Pct Auto 0.2 % (0.0-0.4); Lymphocytes Absolute Auto 1.3 X10*3/uL (1.2-4.9); Lymphocytes Percent Auto 22.7 % (20-40); Mean Corpuscular HGB Conc 34.6 g/dl (31.0-36.0); Mean Corpuscular Hemoglobin 31.9 pg (27.0-33.0); Mean Corpuscular Volume 92.1 fL (80.0-98.0); Mean Platelet Volume 10.9 fL (9.4-12.4); Monocytes Absolute Auto 0.5 X10*3/uL (0.1-1.2); Monocytes Percent Auto 8.8 % (2-11); Neutrophils Absolute Auto 3.6 x10*3/uL (2.0-8.3); Neutrophils Percent Auto 65.1 % (45-73); Platelet Count 151 X10*3/uL (160-400); Red Blood Count 4.33 X10*6/uL (4.60-5.80); Red Cell Distribution Width 12.8 % (11.0-16.0); White Blood Count 5.5 X10*3/uL (4.8-10.8)
[2024-01-17 12:22] LABS: Alanine Aminotransferase 19 U/L (0-40); Anion Gap 12 (12-20); Aspartate Amino Transferase 19 U/L (5-37); Blood Urea Nitrogen 40 mg/dL (9-16); Carbon Dioxide 28 mmol/L (22-29); Chloride 107 mmol/L (96-108); Cholesterol 160 mg/dL (<200); Estimated Glomerular Filt Rate 36; Glucose Fasting 95 mg/dL (60-99); HDL Cholesterol 69 mg/dL (>40); Iron 86 mcg/dL (45-160); LDL Cholesterol Calculated 78 mg/dL (<100); Percent Iron Saturation 32 % (15-50); Sodium 143 mmol/L (135-145); Total Iron Binding Capacity 268 mcg/dL (228-428); Triglycerides 65 mg/dL (<150); Unsaturated Iron Binding 182 ug/dL
[2024-01-17 12:26] LABS: Creatinine Urine 80.65 mg/dL; Microalbum/Creatinine Ratio Ur 7.4 ug/mg cr (<30)
[2024-01-17 15:33] LABS: Estimated Average Glucose 183 mg/dL
== END 2024-01-17 07:54 | disposition home or self-care (01) ==
LOC: HO.HMGCLDS 07:53
PROVIDERS: PCP Family Medicine; Visit Provider Family Medicine
DX: I10 Essential (primary) hypertension (principal); D64.9 Anemia, unspecified; E78.00 Pure hypercholesterolemia, unspecified; E11.9 Type 2 diabetes mellitus without complications; Z79.899 Other long term (current) drug therapy
CPT/HCPCS: 36415; 80051; 80061; 82043; 82550; 82565; 82570; 82947; 83036; 83540; 84450; 84460; 84520; 85025

== ENCOUNTER → 2024-01-22 08:00 | Outpatient (REF) | payer MEDICARE, OTHER, SELFPAY ==
--- NOTE | 2024-01-22 08:05 | CA_ITS ---
Transthoracic Echocardiogram Patient (Last, First, Middle): Dave Tran D Gender: Male Date of : 1945 Age: 78 Procedure Date: 01/22/2024 Procedure Type: Transthoracic Echocardiogram Location: OP Height: 175.26 cm Weight: 108.86 kg BSA: 2.23 m2 Heart Rate: bpm BP: 152 / 78 mmHg Record Press Supervisor: SHILO Referring MD: Aldo Westfall MD Symptoms: NON RHUEM AORTIC STENOSIS Study Quality: Fair, contrast Conclusions: - The left ventricular systolic function is normal. The calculated ejection fraction is 57% by biplane method. - Evidence suggests grade II (moderate) diastolic dysfunction. - Paradoxical, low-flow, low gradient severe aortic stenosis. Findings Procedure Information Contrast agent, definity, is being given per protocol without apparent complications. Left Ventricle Normal left ventricular cavity size. There is mildly increased left ventricular wall thickness. The left ventricular systolic function is normal. The calculated ejection fraction is 57% by biplane method. There is no evidence of regional wall motion abnormalities. Evidence suggests grade II (moderate) diastolic dysfunction. There is moderate septal asymmetric hypertrophy. Right Ventricle Normal right ventricular cavity size and systolic function. Atria The left atrium is moderately dilated. The right atrium is mildly dilated. Aortic Valve There is severe calcification of the aortic valve. The peak aortic velocity is 3.21 m/s with a calculated peak gradient of 41 mmHg. The mean gradient is 24 mmHg. The aortic valve area is 0.73 cm2. There is no aortic valve regurgitation. Dimensionless index 0.21. Stroke volume index 29ml/m2. Overall, paradoxical, low-flow, low gradient severe aortic stenosis. Mitral Valve There is mild mitral annular calcification. There is trace mitral valve regurgitation. There is no mitral valve stenosis. Pulmonic Valve The pulmonic valve is likely normal. Tricuspid Valve There is mild tricuspid valve regurgitation. Mild to moderate pulmonary hypertension is present. Great Vessels The asc aorta is normal in size. Venous The inferior vena cava is normal in size and collapses greater than 50% with inspiration. Pericardium/Pleural There is no evidence of pericardial effusion. Prior Study Comparison Changes noted compared to prior study dated: 08/23/2019. Progression of aortic stenosis. Measurements 2D Linear Measurements IVSd: 1.43 0.6-0.9/0.6-1.0 cm LVIDd: 4.06 3.9-5.3/4.2-5.9 cm LVIDd Index: 1.82 2.4-3.2/2.2-3.1 cm/m2 LVIDs: 2.69 2.0-3.6 cm LVPWd: 1.20 0.7-1.1 cm LA Diam: 4.20 2.7-3.8/3.0-4.0 cm LAIDs Index: 1.88 1.5-2.3 cm/m2 LV Mass: 241.79 67-162/88-224 g LV Mass Index: 108.43 43-95/49-115 g/m2 LVOT Diam: 2.10 3.0+(-)1.3 cm 2D Systolic Function EF 4C: 55.10 >55% EF 2C: 56.30 >55% EF BiP: 57.10 >55% Mitral Valve MV Pk E: 0.97 MV PK A: 0.95 MV Decel Time: 199.00 E/A: 1.00 E'Lateral: 8.16 E'Medial: 5.22 E/E' Med: 18.60 E/E' Lat: 11.90 PHT: 58.00 MVA PHT: 3.79 Decel Boone: 4.89 Aortic Valve AoV Pk Clayton: 3.21 AoV Mn Clayton: 2.26 AoV VTI: 0.89 AoV Pk Grad: 41.00 Aov Mn Grad: 24.00 MISTY Cont.VTI: 0.73 LVOT LVOT Pk Clayton: 0.68 LVOT Mn Clayton: 0.49 LVOT VTI: 0.19 LVOT Pk Grad: 2.00 LVOT Mn Grad: 1.00 LVOT Diam: 2.10 LVOT Area: 3.46 Diastolic Function MV Pk E: 0.97 MV Pk A: 0.95 E/A: 1.00 E'Medial: 5.22 E/E' Med: 18.60 E' Laterial: 8.16 E/E' Lat: 11.90 Right Ventricle TAPSE (mm): 19.80 TVS' Clayton: 10.20 Tricuspid Valve TR Pk Clayton: 3.23 TR Pk Grad: 42.00 RA Press: 8.00 RVSP: 50.00 Great Vessels Aorta Sinus of Valsalva: 3.51 2.0-3.[address] [place]: 2.38 1.7-3.4 cm Ao Asc: 3.90 2.1-3.4 cm Updated in Other Vendor System with Status of Final Rocky Rouse MD electronically signed on 01/22/2024 12:00:09 PM with status of Final
== END ==
LOC: HO.CARD 08:00
PROVIDERS: PCP Family Medicine; Visit Provider Family Medicine
DX: I35.0 Nonrheumatic aortic (valve) stenosis (principal)
CPT/HCPCS: 93306; Q9957

== ENCOUNTER → 2024-01-22 08:05 | Outpatient (BNV) | payer MEDICARE, OTHER, SELFPAY | PROVIDERS: PCP Family Medicine; Visit Provider Internal Medicine | DX: I35.0 Nonrheumatic aortic (valve) stenosis (principal) | CPT/HCPCS: 93306 ==

== ENCOUNTER 2024-02-07 10:19 | Outpatient (AMB) | payer MEDICARE, OTHER, SELFPAY ==
[2024-02-07 10:22] VITALS: PULSE 76; O2SAT 94; BMI 33.7
--- NOTE | 2024-02-07 10:22 | A.OFFVIS_ITS ---
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 The patient has underlying chronic respiratory failure and is currently using oxygen. He recently had a CT scan of the chest at [facility] demonstrating the ongoing fibrotic changes and pleural effusion. No concerning findings, although, will have to look at the CT scans from [facility]. In the meantime the last several days he started developing worsening respiratory complaints with worsening productive cough reason sputum. He also developed worsening shortness of breath and hypoxia and had to increase his oxygen to 4 L. he has used inhalers in the past without any significant improvement. In the office we did use a nebulizer and he did get some relief, although, he was still having expiratory wheezing. Patient also has been complaining of feeling warm and chills. Denies any sick contacts. 01/04/2022 the patient is here for pulmo nary follow-up visit. Since we last spoke the patient did require quadruple bypass surgery. His cardiac status is better at this time. He continues with the oxygen between 2-4 L pulse. He is able to remove the oxygen at rest. He maintains a pulse ox above 90%. His shortness of breath is about the same. [id number] severity. Denies any significant coughing or denies any significant chest pain. The patient did have a CT scan of the chest that was personally by me them still demonstrating the evidence of the asbestos related lung disease likely with some component of asbestos plaques and also some degree of asbestosis resulting in some interstitial lung disease. At this point appears that the disease is burnt-out. The patient does not require any additional prednisone. He does have a restrictive lung disease. And therefore resulting the oxygen requirements. Patient also has some nodular densities. The plan is to repeat the CT scan [address] scan is no different in a year's time that we can hold off on serial CT scans and follow him clinically. 05/24/2022 the patient is here for a pulm onary follow-up visit. the patient complains of dyspnea on exertion. The oxygen does help him. He has been having issues getting oxygen from his [employer] company. In the meantime in the office the patient has been using his oxygen at 4 L pulse. He typically decrease it to 2 L pulse when he is resting. In the office we did do a 6 minute walk test. The patient did appropriately well on the 4 L pulse with activity maintaining a pulse ox above 92%. 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 He has a bilateral pleural effusions also related to the asbestos disease. He is currently being evaluated by Cardiology regarding his underlying cardiovascular disease as well. the patient does need to have a CT scan of the chest to follow-up with his pulmonary nodules his asbestos related lung disease with asbestosis and pulmonary fibrosis. However, will go ahead and postpone the CT scan to his follow-up visit in the springtime. In the meantime if the patient develops any worsening symptoms prior to that he is to call so we can reassess on an earlier time. 11/14/2022 the patient is here for sick visit. The patient has been not feeling well since the last week of October. Started developing worsening cough in addition to shortness of breath. Moderate severity. He was given a course of prednisone which initially helped but then symptoms worsened. He has gotten very weak. He is currently in a wheelchair because very hard for him to walk. Complains of the shortness of breath. He is also very congested. He is bringing up some green grayish sputum. Difficult to expectorate. Moderate severity. His was concerned with his worsening respiratory decompensation and she did want to bring to the ER at some point. The patient was reluctant to do so. Therefore he is here today. We were able to take a listen to his lungs and he does have bilateral crackles but he does have interstitial lung disease from his fibrosis and is asbestos related lung disease. The patient did get a breathing treatment and was able to expectorate his sputum specimen for culture. He also underwent blood work in addition to a chest x-ray. I did briefly look at the x-ray it appeared that he had some slight increase hazy opacity in the left lower and left mid area in conjunction with his chronic disease. The final read was unchanged. However very difficult to assess the abnormal chest x-ray. The patient has been using the oxygen. His oxygen levels have been steady. He has not had to increasing. Therefore, will start the patient on antibiotics to treat him for pneumonia in addition to on lower course dose of prednisone. Will follow-up in a couple weeks. 12/08/2022 the patient is here for a pulmonary follow-up visit. Currently patient is doing better. He completed the antibiotics in the prednisone. He is back to his baseline therapy. He is back to his baseline. We did review his chest x-ray demonstrating bilateral airspace disease consistent with bronchopne umonia. We also reviewed his blood work. We also did try to send a sputum culture although is contaminated by saliva. It could not be process. The patient continues uses oxygen with good effect. Continues to have dyspnea on exertion [id number] severity. Otherwise the patient is at baseline. 06/07/2023 the patient is here for pulmona ry follow-up visit. The patient overall is feeling better. He had a bout of a COPD exacerbation and bronchitis which required antibiotics and prednisone. He did improve significantly after the prednisone antibiotics. He is back to his baseline. May was a talk month however because was very humid and hot. He spent a lot of time in the AC. He continues uses oxygen 2 L pulse. He did wonder about a portable oxygen concentrator. I did not advise him for 1 unless he is doing traveling where he may need additional portability outside of the home. But you for the most part he is staying local. The patient did have a chest x-ray which I personally reviewed in November demonstrating increased interstitial lung disease and bilateral pleural effusions. Will go ahead and have him repeat the x-ray sometime in the fall. In addition to this he does use CPAP. CPAP therapy continues to be affecting beneficial. He does get supplies from [email or web address]. 02/07/2024 the patient is here for a pulmo narnoe follow-up visit. The patient complains of worsening dyspnea on exertion. He has been noticing he has been having to use his oxygen more regularly. Sometimes he was able to be without the oxygen but now he notis prescribed. Denies any worsening lower extremity edema. He has also been using his respiratory medications. The patient has not had an x-ray in about a year. At this point will request a chest x-ray. Patient also has renal insufficiency so we have to be very careful but he may benefit from couple days of doubling up on the diuretic to try to improve his volume status. The patient also will benefit from pulmonary rehabilitation. Will have him undergo pulmonary function studies in order for him to start pulmonary rehab at this time. [facility] Medical History (Updated 02/07/24 @ 10:31 by Barrera Bello MD) Hypoxia Pulmonary nodules Chronic restrictive lung disease Chronic respiratory failure Pulmonary fibrosis Asbestosis Surgical History (Updated 08/04/21 @ 11:17 by GILBERT Haley) History of open heart surgery Family History (Updated 08/04/21 @ 11:19 by GILBERT Haley) Mother Ovarian cancer Father Heart attack Brother Heart attack Sister Diabetes Social History (Updated 05/24/22 @ 10:02 by GILBERT Madera) Alcohol intake: former Year quit: 1989 Patient Tobacco Use Status: Former Tobacco user Quit Date: YEARS AGO QUIT AT 19 Y/O Tobacco use type: Cigarette Years Smoked: 8 Years Review of Systems Const Denies night sweats ENT Denies change in voice, Denies lip swelling, Denies mouth pain, Reports nasal congestion, Reports nasal discharge and Denies tongue swelling Card Denies chest pain, Reports dyspnea and Reports dyspnea on exertion Resp Denies change in phlegm color, Denies chest congestion, Reports cough, Denies hemoptysis, Denies excessive phlegm production, Denies pain on inspiration, Denies pain with cough, Reports dyspnea and Reports dyspnea on exertion GI Denies abdominal pain Musc Reports abnormal gait and Reports muscle weakness Neuro Denies Neuro-related abnormal movements and Reports abnormal gait Psych Denies no additional complaints Bi/Lymph Denies easy bleeding and Denies lymphadenopathy Aller/Immun Denies lip swelling and Denies tongue swelling Physical Exam Vital Signs: Last Vital Signs Pulse 76 02/07/24 10:22 Pulse Ox 94 02/07/24 10:22 Oxygen Delivery Method Room Air 02/07/24 10:22 BMI result Body Mass Index 33.7 Const General: alert HEENT General nose exam: Abnormal external nose present and Nasal discharge present Neck Neck: Yes normal visual inspection, Yes full ROM and Yes no lymphadenopathy Chest Chest palpation & inspection: normal inspection of the chest Resp Auscultation: no crackles, no rales and diminished lung sounds Cardio Rate: regular rate Rhythm: regular rhythm Heart sounds: S1 normal heart sound present and S2 normal heart sound present GI Palpation (GI): Soft to palpation and nontender Auscultation: normal bowel sounds General: Yes no CVA tenderness Back/Spine/Pelvis Back: no CVA tenderness Assessment & Plan Assessment & Plan (1) Pulmonary fibrosis: Code(s): J84.10 - Pulmonary fibrosis, unspecified (2) Asbestosis: Code(s): J61 - Pneumoconiosis due to asbestos and other mineral fibers (3) Chronic respiratory failure: Code(s): J96.10 - Chronic respiratory failure, unspecified whether with hypoxia or hypercapnia Qualifiers: Respiratory failure complication: hypoxia Qualified Code(s): J96.11 - Chronic respiratory failure with hypoxia (4) Chronic restrictive lung disease: Code(s): J98.4 - Other disorders of lung (5) Pulmonary nodules: Code(s): R91.8 - Other nonspecific abnormal finding of lung field Plan Continue oxygen supplementationn Nebulized therapy with DuoNeb q.i.d. diuresis as tolerated, may increase for a couple days depending on the CXR CXR PFTs Start Pulmonary rehab F/U 6-8 months Orders: Orders XR chest 2V Today R09.02 - Hypoxemia XR chest 2V Today J61 - Pneumoconiosis due to asbestos and other mineral fibers, J84.10 - Pulmonary fibrosis, unspecified, J98.4 - Other disorders of lung PFT pulmonary function test Today J61 - Pneumoconiosis due to asbestos and other mineral fibers, J84.10 - Pulmonary fibrosis, unspecified, J98.4 - Other disorders of lung Pulmonary Rehab Today J61 - Pneumoconiosis due to asbestos and other mineral fibers, J84.10 - Pulmonary fibrosis, unspecified, J98.4 - Other disorders of lung Coding Level of Care Code Est Pt Level 4 (65604) Diagnoses Pulmonary fibrosis J84.10 Asbestosis J61 Chronic respiratory failure with hypoxia J96.11 Respiratory failure complication: hypoxia Chronic restrictive lung disease J98.4 Pulmonary nodules R91.8 Time Spent (min) 17
== END 2024-02-07 10:42 | disposition home or self-care (01) ==
PROVIDERS: PCP Family Medicine; Visit Provider Hospitalist
DX: J84.10 Pulmonary fibrosis, unspecified (principal); J61 Pneumoconiosis due to asbestos and other mineral fibers; J96.11 Chronic respiratory failure with hypoxia; J98.4 Other disorders of lung; R91.8 Other nonspecific abnormal finding of lung field
CPT/HCPCS: 99214

== ENCOUNTER 2024-02-07 10:19 | Outpatient (REF) | payer MEDICARE, OTHER, SELFPAY ==
--- NOTE | ~2024-02-07 | XR_ITS ---
EXAMINATION: XR CHEST CLINICAL INFORMATION: Lung disorder COMPARISON: Chest x-ray November 14, 2022 TECHNIQUE: 2 views of the chest were obtained. FINDINGS: Stable cardiac silhouette. Patient is status post CABG. Chronic bilateral pleural calcifications with unchanged right apical opacity. Similar diffuse prominence of interstitial markings. Unchanged blunting of both costophrenic angles. No large pleural effusion. No pneumothorax. Degenerative changes of the spine. XR/XR chest 2V IMPRESSION: Stable chronic changes of the lungs. No acute pulmonary pathology identified on today's imaging.
== END 2024-02-07 10:20 | disposition home or self-care (01) ==
LOC: HO.XRAY 10:19
PROVIDERS: PCP Family Medicine; Visit Provider Hospitalist
DX: J84.10 Pulmonary fibrosis, unspecified (principal); J61 Pneumoconiosis due to asbestos and other mineral fibers; J18.0 Bronchopneumonia, unspecified organism; J98.4 Other disorders of lung; J44.9 Chronic obstructive pulmonary disease, unspecified; J96.11 Chronic respiratory failure with hypoxia; R91.8 Other nonspecific abnormal finding of lung field; Z99.81 Dependence on supplemental oxygen
CPT/HCPCS: 71046; 99212

== ENCOUNTER 2024-02-21 08:46 | Outpatient (REF) | payer MEDICARE, OTHER, SELFPAY ==
[2024-02-21 09:14] VITALS: PULSE 71; RESP 16; O2SAT 96
--- NOTE | 2024-02-21 11:16 | PFT_ITS ---
Flows: FEV1: 63 % of predicted at 1.42 L FVC: 61 % of predicted at 1.82 L FEV1/FVC: 78 % Bronchodilator response: Absent Volumes: Total lung capacity: 45 % of predicted at 2.60 L Residual volume: 33 % of predicted at 0.86 L Slow vital capacity: 57 % of predicted at 1.74 L Expiratory reserve volume: 63 % of predicted at 0.49 L Diffusion capacity: Moderately decreased, corrects to normal after adjustment for alveolar ventilation. Impression: Moderate restrictive ventilatory defect with no bronchodilator response. Combination of decreased diffusion capacity with restrictive ventilatory defect suggests underlying pulmonary parenchymal disease. Clinical correlation is advised. MTDD
== END 2024-02-21 08:47 | disposition home or self-care (01) ==
LOC: HO.RESP 08:46
PROVIDERS: PCP Family Medicine; Visit Provider Hospitalist
DX: J98.4 Other disorders of lung (principal); J61 Pneumoconiosis due to asbestos and other mineral fibers; J84.10 Pulmonary fibrosis, unspecified
CPT/HCPCS: 94010; 94640; 94727; 94729

== ENCOUNTER → 2024-02-21 11:16 | Outpatient (BNV) | payer MEDICARE, OTHER, SELFPAY | PROVIDERS: PCP Family Medicine; Visit Provider Internal Medicine Pulmonary Disease | DX: J44.9 Chronic obstructive pulmonary disease, unspecified (principal) | CPT/HCPCS: 94060; 94727; 94729 ==

== ENCOUNTER 2024-03-28 09:22 | Outpatient (REF) | payer MEDICARE, OTHER, SELFPAY ==
[2024-03-28 10:42] LABS: Estimated Average Glucose 177 mg/dL; Hemoglobin A1c % 7.8 % (<6.0)
[2024-03-28 10:49] LABS: Glucose Fasting 131 mg/dL (60-99)
== END 2024-03-28 09:23 | disposition home or self-care (01) ==
LOC: HO.HMGCLDS 09:22
PROVIDERS: PCP Family Medicine; Visit Provider Family Medicine
DX: E11.9 Type 2 diabetes mellitus without complications (principal)
CPT/HCPCS: 36415; 82947; 83036

== ENCOUNTER 2024-06-07 09:14 | Outpatient (AMB) | payer MEDICARE, OTHER, SELFPAY ==
[2024-06-07 09:31] VITALS: PULSE 61; O2SAT 92; BMI 33.0
--- NOTE | 2024-06-07 09:31 | A.OFFVIS_ITS ---
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 The patient has underlying chronic respiratory failure and is currently using oxygen. He recently had a CT scan of the chest at [facility] demonstrating the ongoing fibrotic changes and pleural effusion. No concerning findings, although, will have to look at the CT scans from [facility]. In the meantime the last several days he started developing worsening respiratory complaints with worsening productive cough reason sputum. He also developed worsening shortness of breath and hypoxia and had to increase his oxygen to 4 L. he has used inhalers in the past without any significant improvement. In the office we did use a nebulizer and he did get some relief, although, he was still having expiratory wheezing. Patient also has been complaining of feeling warm and chills. Denies any sick contacts. 01/04/2022 the patient is here for pulmonary follow-up visit. Since we last spoke the patient did require quadruple bypass surgery. His cardiac status is better at this time. He continues with the oxygen between 2-4 L pulse. He is able to remove the oxygen at rest. He maintains a pulse ox above 90%. His shortness of breath is about the same. Dhfy-ot-vlrerpea severity. Denies any significant coughing or denies any significant chest pain. The patient did have a CT scan of the chest that was personally by me them still demonstrating the evidence of the asbestos related lung disease likely with some component of asbestos plaques and also some degree of asbestosis resulting in some interstitial lung disease. At this point appears that the disease is burnt-out. The patient does not require any additional prednisone. He does have a restrictive lung disease. And therefore resulting the oxygen requirements. Patient also has some nodular densities. The plan is to repeat the CT scan [address] scan is no different in a year's time that we can hold off on serial CT scans and follow him clinically. 05/24/2022 the patient is here for a pulmonary follow-up visit. the patient complains of dyspnea on exertion. The oxygen does help him. He has been having issues getting oxygen from his [employer] company. In the meantime in the office the patient has been using his oxygen at 4 L pulse. He typically decrease it to 2 L pulse when he is resting. In the office we did do a 6 minute walk test. The patient did appropriately well on the 4 L pulse with activity maintaining a pulse ox above 92%. 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 He has a bilateral pleural effusions also related to the asbestos disease. He is currently being evaluated by Cardiology regarding his underlying cardiovascular disease as well. the patient does need to have a CT scan of the chest to follow-up with his pulmonary nodules his asbestos related lung disease with asbestosis and pulmonary fibrosis. However, will go ahead and postpone the CT scan to his follow-up visit in the springtime. In the meantime if the patient develops any worsening symptoms prior to that he is to call so we can reassess on an earlier time. 11/14/2022 the patient is here for sick visit. The patient has been not feeling well since the last week of October. Started developing worsening cough in addition to shortness of breath. Moderate severity. He was given a course of prednisone which initially helped but then symptoms worsened. He has gotten very weak. He is currently in a wheelchair because very hard for him to walk. Complains of the shortness of breath. He is also very congested. He is bringing up some green grayish sputum. Difficult to expectorate. Moderate severity. His was concerned with his worsening respiratory decompensation and she did want to bring to the ER at some point. The patient was reluctant to do so. Therefore he is here today. We were able to take a listen to his lungs and he does have bilateral crackles but he does have interstitial lung disease f rom his fibrosis and is asbestos related lung disease. The patient did get a breathing treatment and was able to expectorate his sputum specimen for culture. He also underwent blood work in addition to a chest x-ray. I did briefly look at the x-ray it appeared that he had some slight increase hazy opacity in the left lower and left mid area in conjunction with his chronic disease. The final read was unchanged. However very difficult to assess the abnormal chest x-ray. The patient has been using the oxygen. His oxygen levels have been steady. He has not had to increasing. Therefore, will start the patient on antibiotics to treat him for pneumonia in addition to on lower course dose of prednisone. Will follow-up in a couple weeks. 12/08/2022 the patient is here for a pulmonary follow-up visit. Currently patient is doing better. He completed the antibiotics in the prednisone. He is back to his baseline therapy. He is back to his baseline. We did review his chest x-ray demonstrating bilateral airspace disease consistent with bronchopneumonia. We also reviewed his blood work. We also did try to send a sputum culture although is contaminated by saliva. It could not be process. The patient continues uses oxygen with good effect. Continues to have dyspnea on exertion [id number]-oo-ocdybrre severity. Otherwise the patient is at baseline. 06/07/2023 the patient is here for pulmonary follow-up visit. The patient overall is feeling better. He had a bout of a COPD exacerbation and bronchitis which required antibiotics and prednisone. He did improve significantly after the prednisone antibiotics. He is back to his baseline. May was a talk month however because was very humid and hot. He spent a lot of time in the AC. He continues uses oxygen 2 L pulse. He did wonder about a portable oxygen concentrator. I did not advise him for 1 unless he is doing traveling where he may need additional portability outside of the home. But you for the most part he is staying local. The patient did have a chest x-ray which I personally reviewed in November demonstrating increased interstitial lung disease and bilateral pleural effusions. Will go ahead and have him repeat the x-ray sometime in the fall. In addition to this he does use CPAP. CPAP therapy continues to be affecting beneficial. He does get supplies from [employer]. 02/07/2024 the patient is here for a pulmonary follow-up visit. The patient complains of worsening dyspnea on exertion. He has been noticing he has been having to use his oxygen more regularly. Sometimes he was able to be without the oxygen but now he notis prescribed. Denies any worsening lower extremity edema. He has also been using his respiratory medications. The patient has not had an x-ray in about a year. At this point will request a chest x-ray. Patient also has renal insufficiency so we have to be very careful but he may benefit from couple days of doubling up on the diuretic to try to improve his volume status. The patient also will benefit from pulmonary rehabilitation. Will have him undergo pulmonary function studies in order for him to start pulmonary rehab at this time. 06/07/2024 patient is here for a pulmonary follow-up visit. Overall he is doing well. He did start pulmonary rehabilitation he has found that is been affecting beneficial. He has finish the face to program and will start now the face 3. He will continue with his respiratory medications as prescribed. He did have a chest x-ray which I personally reviewed without any significant changes in the pleural thickening as he does have a history asbestos. His oxygen requirements are about the same. Otherwise patient is doing well on the current therapy. No additional imaging warranted. Will follow-up in 6-8 months. If patient has any issues prior to that he will call for an earlier assessment. [facility] Medical History (Updated 02/07/24 @ 10:31 by Barrera Bello MD) Hypoxia Pulmonary nodules Chronic restrictive lung disease Chronic respiratory failure Pulmonary fibrosis Asbestosis Surgical History (Updated 08/04/21 @ 11:17 by GILBERT Haley) History of open heart surgery Family History (Updated 08/04/21 @ 11:19 by GILBERT Haley) Mother Ovarian cancer Father Heart attack Brother Heart attack Sister Diabetes Social History (Updated 05/24/22 @ 10:02 by GILBERT Madera) Alcohol intake: former Year quit: 1989 Patient Tobacco Use Status: Former Tobacco user Tobacco use type: Cigarette Years Smoked: 8 Years Review of Systems Const Denies night sweats ENT Denies change in voice, Denies lip swelling, Denies mouth pain, Reports nasal congestion, Reports nasal discharge and Denies tongue swelling Card Denies chest pain, Reports dyspnea and Reports dyspnea on exertion Resp Denies change in phlegm color, Denies chest congestion, Reports cough, Denies hemoptysis, Denies excessive phlegm production, Denies pain on inspiration, Denies pain with cough, Reports dyspnea and Reports dyspnea on exertion GI Denies abdominal pain Musc Reports abnormal gait and Reports muscle weakness Neuro Denies Neuro-related abnormal movements and Reports abnormal gait Psych Denies no additional complaints Bi/Lymph Denies easy bleeding and Denies lymphadenopathy Aller/Immun Denies lip swelling and Denies tongue swelling Physical Exam Vital Signs: Last Vital Signs Pulse 61 06/07/24 09:31 Pulse Ox 92 06/07/24 09:31 Oxygen Delivery Method Room Air 06/07/24 09:31 BMI result Body Mass Index 33.0 Const General: alert HEENT General nose exam: Abnormal external nose present and Nasal discharge present Neck Neck: Yes normal visual inspection, Yes full ROM and Yes no lymphadenopathy Chest Chest palpation & inspection: normal inspection of the chest Resp Auscultation: no crackles, no rales and diminished lung sounds Cardio Rate: regular rate Rhythm: regular rhythm Heart sounds: S1 normal heart sound present and S2 normal heart sound present GI Palpation (GI): Soft to palpation and nontender Auscultation: normal bowel sounds General: Yes no CVA tenderness Back/Spine/Pelvis Back: no CVA tenderness Assessment & Plan Assessment & Plan (1) Pulmonary fibrosis: Code(s): J84.10 - Pulmonary fibrosis, unspecified Category: Medical (2) Asbestosis: Code(s): J61 - Pneumoconiosis due to asbestos and other mineral fibers Category: Medical (3) Chronic respiratory failure: Code(s): J96.10 - Chronic respiratory failure, unspecified whether with hypoxia or hypercapnia Category: Medical Qualifiers: Respiratory failure complication: hypoxia Qualified Code(s): J96.11 - Chronic respiratory failure with hypoxia (4) Chronic restrictive lung disease: Code(s): J98.4 - Other disorders of lung Category: Medical (5) Pulmonary nodules: Code(s): R91.8 - Other nonspecific abnormal finding of lung field Category: Medical Plan Continue oxygen supplementationn Nebulized therapy with DuoNeb q.i.d. consider Budesonide neb daily cont Pulmonary rehab F/U 6-8 months Coding Level of Care Code Est Pt Level 4 (19333) Complex EM visit Add On G2211 Diagnoses Pulmonary fibrosis J84.10 Asbestosis J61 Chronic respiratory failure with hypoxia J96.11 Respiratory failure complication: hypoxia Chronic restrictive lung disease J98.4 Pulmonary nodules R91.8 Time Spent (min) 16
== END 2024-06-07 09:52 | disposition home or self-care (01) ==
PROVIDERS: PCP Family Medicine; Visit Provider Hospitalist
DX: J84.10 Pulmonary fibrosis, unspecified (principal); J61 Pneumoconiosis due to asbestos and other mineral fibers; J96.11 Chronic respiratory failure with hypoxia; J98.4 Other disorders of lung; R91.8 Other nonspecific abnormal finding of lung field
CPT/HCPCS: 99214; G2211

== ENCOUNTER → 2024-06-07 09:14 | Outpatient (BNVA) | payer MEDICARE, OTHER, SELFPAY | PROVIDERS: PCP Family Medicine; Visit Provider Hospitalist | DX: J84.10 Pulmonary fibrosis, unspecified (principal); J61 Pneumoconiosis due to asbestos and other mineral fibers; J98.4 Other disorders of lung; J96.11 Chronic respiratory failure with hypoxia; R91.8 Other nonspecific abnormal finding of lung field | CPT/HCPCS: 99212 ==

== ENCOUNTER 2024-10-09 09:06 | Outpatient (REF) | payer MEDICARE, OTHER, SELFPAY ==
[2024-10-09 10:10] LABS: MANUAL DIFF FLAG NO
[2024-10-09 10:28] LABS: Basophils Percent Auto 0.2 % (0-2); Eosinophils Absolute Auto 0.2 X10*3/uL (0.0-0.4); Eosinophils Percent Auto 3.2 % (0-4); Hematocrit 38.8 % (42.0-52.0); Hemoglobin 13.5 g/dl (14.0-18.0); Imm Gran Abs Auto 0.01 X10*3/uL (0.00-0.03); Imm Gran Pct Auto 0.2 % (0.0-0.4); Lymphocytes Absolute Auto 1.3 X10*3/uL (1.2-4.9); Lymphocytes Percent Auto 23.5 % (20-40); Mean Corpuscular HGB Conc 34.8 g/dl (31.0-36.0); Mean Corpuscular Volume 91.9 fL (80.0-98.0); Monocytes Absolute Auto 0.6 X10*3/uL (0.1-1.2); Monocytes Percent Auto 10.5 % (2-11); Neutrophils Absolute Auto 3.3 x10*3/uL (2.0-8.3); Neutrophils Percent Auto 62.4 % (45-73); Platelet Count 154 X10*3/uL (160-400); Red Blood Count 4.22 X10*6/uL (4.60-5.80); Red Cell Distribution Width 12.6 % (11.0-16.0); White Blood Count 5.3 X10*3/uL (4.8-10.8)
[2024-10-09 10:35] LABS: Estimated Average Glucose 183 mg/dL; Hemoglobin A1C 223.3756 umol/L; Total Hemoglobin (HGBA1C) 3474.7747 umol/L
[2024-10-09 11:08] LABS: Alanine Aminotransferase 27 U/L (0-40); Anion Gap 11 (12-20); Aspartate Amino Transferase 27 U/L (5-37); Blood Urea Nitrogen 38 mg/dL (9-16); Carbon Dioxide 29 mmol/L (22-29); Chloride 108 mmol/L (96-108); Estimated Glomerular Filt Rate 34; Glucose Fasting 113 mg/dL (60-99); Iron 76 mcg/dL (45-160); Percent Iron Saturation 28 % (15-50); Sodium 144 mmol/L (135-145); Total Iron Binding Capacity 271 mcg/dL (228-428); Unsaturated Iron Binding 195 ug/dL
[2024-10-09 11:29] LABS: Creatinine Urine 97.37 mg/dL; Microalbum/Creatinine Ratio Ur 9.2 ug/mg cr (<30)
--- OUTSIDE RECORDS SUMMARY | 2024-10-15 16:44 | XMS_ITS | Encounter Summary ---
Author Name [facility] Organization [facility] Address [address] [place] [id number] Care Team Providers Care [place] Operator Name Role Phone JUANITA BIRCH Primary Care Provider Unavailabl e Insurance Providers: All historical and current Section Date Range: From patient's date of to the date document was created. This section includes the names of all active insurance providers for the patient. Insurance Provider Type of Coverage Plan Name Start of Policy Coverage End of Policy Coverage Group Number Member ID Insurance Provider's Telephone Number Policy Bradford's Name Patient's Relationship to Policy Bradford [facility] MEDICARE SUPPLEMEN HANS MA IND Nov 06, 2016 MEDICAR E SUPPLEM E [id number] FRANCISRao MARQUES PATIENT MEDICARE (WNR) MEDICARE () PART A May 06, 2008 PART A [id number] [facility] Rao ODELL PATIENT MEDICARE (WNR) MEDICARE (M) PART B May 06, 2008 PART B [id number] [facility] Rao ODELL PATIENT MEDICARE (WNR) MEDICARE () PART A May 06, 2008 PART A [id number] [phone] FRANCISJERALDRao TJ PATIENT MEDICARE (WNR) MEDICARE (M) PART B May 06, 2008 PART B [id number] Rao ODELL PATIENT Selected Encounter This section includes the information on record at OR for the Encounter. Date/Time Encounter Type Encounter Description Reason Provider Source Nov 08, 2023 02:21 PM QNHP OL DIG ASSMT&MGMT 5-10 CLINICAL PHARMACY ICD-10-CM E11.65 Type 2 diabetes mellitus with hyperglycemia JOEYBERNICE DANITA IHE Encounter Template Text not used by OR Assessments - Encounter Diagnoses This section includes the primary and secondary diagnoses documented for the Encounter. Date/Time Primary/Secondary Diagnosis Diagnosis Name Provider Source Nov 08, 2023 02:24 PM PRIMARY Type 2 diabetes mellitus with hyperglycemia RICKY COOKSS DANITA [facility] Plan of Treatment: Future Appointments (+ 6 months) and Future Tests (+/- 45 days) The Plan of Treatment section includes [facility] care activities for the [facility] This section includes future appointments and future orders which are active, pending or scheduled. Future Appointments This section includes appointments that were scheduled to occur 6 months from the date of the Encounter, up to a maximum of 20 appointments. The data comes from all OR treatment [facility]. Appointment Date/Time Appointment Type Appointme nt Facility Name Dec 12, 2023 09:00 AM AMBULATORY - MEDICINE [facility] Jan 30, 2024 09:00 AM AMBULATORY - MEDICINE [facility] Feb 07, 2024 09:30 AM AM[facility]ULATORY - MEDICINE [facility] Mar 04, 2024 09:00 AM [facility] Apr 15, 2024 09:00 AM AMBULATORY - MEDICINE [facility] Active, Pending, and Scheduled Orders This section includes a listing of several types of active, pending, and scheduled orders, including clinic medications orders, diagnostic test orders, procedure orders and consult orders; where the start date of the order is 45 days before the date of the Encounter or 45 days after the date of theEncounter. The data comes from all OR treatment [facility]. Test Date/Time Test Type Test Details Facility Name Dec 08, 2023 12:00 AM Laboratory - Chemi stry Order URINALYSIS URINE [facility] Dec 08, 2023 12:00 AM Laboratory - Chemi stry Order MICROALBUMIN CREATININE RATIO PANEL URINE (RANDOM) [facility] Dec 08, 2023 12:00 AM Laboratory - Chemi stry Order CBC AND DIFF (AUTO) BLOOD (LAV-BLOOD) [facility] Dec 08, 2023 12:00 AM Laboratory - Chemi stry Order HEMOGLOBIN A1C PANEL BLOOD (LAV-BLOOD) [facility] Dec 08, 2023 12:00 AM Laboratory - Chemi stry Order BASIC METABOLIC PANEL (fasting) BLOOD (SST-SERUM) [facility] Dec 08, 2023 12:00 AM Laboratory - Chemi stry Order LIPID PANEL FASTING BLOOD (SST-SERUM) [facility] Dec 08, 2023 12:00 AM Laboratory - Chemi stry Order LIVER FUNCTION BLOOD (SST-SERUM) [facility] Dec 08, 2023 12:00 AM Laboratory - Chemi stry Order CALCIUM BLOOD (SST-SERUM) [facility] Encounter Notes: All associated encounter notes This section contains the clinical notes associated to the Encounter. Date/Time Encounter Note(s) Provider Source Nov 08, 2023 02:21 PM MEDICATION MGT CON SULT: LOCAL TITLE: CONSULT REPORT/NON FORMULARY PADR STANDARD TITLE: MEDICATION MGT CONSULT DATE OF NOTE: NOV 08, 2023@14:21 ENTRY DATE: NOV 08, 2023@14:22:17 AUTHOR: DENINS COOK EXP COSIGNER: URGENCY: STATUS: COMPLETED The medical record has been reviewed with regard to this restricted drug request. Medication requested: GLUCOSE SENSOR FREESTYLE ZITA 3 Medication indication: DM Medical history relevant to this request: Pt followed by [place] CPP for DM. Currently on insulin therapy. Per consult: Would like to consider CGM to minimize painful fingersticks. If able to d/c insulin in the future with non-insulin therapies, will d/c CGM. Last A1c 6.7% on 08/2023. The request is approved - A documented adverse reaction occurred with the preferred formulary alternative(s) /celina/ Dennis Cook PharmD Clinical Equipment Maintenance Engineer Signed: 11/08/2023 14:24 DENNIS COOK CNTRL WSTRN [facility]
--- OUTSIDE RECORDS SUMMARY | 2024-10-15 16:44 | XMS_ITS | Continuity of Care Document ---
Author Name [facility] Organization [facility] Care Team Providers Care Program Engineer Name Role Phone [facility] Unavailable Unavailable Problems Combined list of problems from 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 It does not include entries that were removed or entered in error. Problem Status Onset Date Problem Type Date of Resolution Comments Source Anxiety Active Condition [place] Asbestosis Active Condition May 29 018 Entered By: JUANITA BIRCH Comment: Dx NOV 2012 via Private PULMO: CXR, CT Thorax Done 2012 Entered By: JUANITA BIRCH Comment: Dx NOV [address] [facility] Entered By: JUANITA BIRCH Comment: early scarring note but appeared not to beOct 2012 Entered By: JUANITA BIRCH Comment: progressive in nature back 2012 Entered By: JUANITA BIRCH Comment: Lung Bx done Via Cardi-Thoracic Surg [facility] (Dr Smith)Aug 20, 2013 Entered By: JUANITA BIRCH [facility] Aug Entered By: JUANITA BIRCH Comment: Attributable to Svc [place] 1960'sOct 2012 Entered By: JUANITA BIRCH Comment: no Lung CA as of Aug Entered By: JUANITA BIRCH Comment: Next Pulmo Eval NOV 29 [place] Benign hypertension Active Condition SP [facility] Benign prostatic hyperplasia Active Condition Aug 20, 2013 Entered By: JUANITA BIRCH Comment: TURP NOV 2012; no Prostate CA [place] Cataract Active Condition Aug 20 Entered By: JUANITA BIRCH Comment: Surg OU 2012 [place] Chronic kidney disease stage 3 Active Condition Sep 03, 2024 Entered By: JUANITA BIRCH Comment: eGFR 31 in Aug Entered By: JUANITA BIRCH Comment: Diabetic Nephropathy [place] Coronary artery disease Active Condition Oct 09, 2019 Entered By: JUANITA BIRCH Comment: CABG (3 vessel by-pass) ) [facility] 24De2018 Entered By: JUANITA BIRCH Comment: S&S Suspicious for ACS During Course of Pulmo Eval for Asbestosis [place] Diabetes mellitus Active Condition 2019 Entered By: JUANITA BIRCH Comment: no DR as of NOV 25 [place] Exposure to potentially hazardous substance Active Condition Sep 05, 2023 Entered By: JUANITA BIRCH Comment: Asbestosis [place] Heart murmur Active Condition Apr 28, 2016 Entered By: JUANITA BIRCH Comment: Functional ?; no Sx [place] History of colonoscopy Active Condition Aug 20, 2013 Entered By: JUANITA BIRCH Comment: Last Colonoscopy 2011; no CRC or PolypsAug 20, 2013 Entered By: JUANITA BIRCH Comment: done [facility]; repeat 2018 Entered By: JUANITA BIRCH Comment: Last Colonoscopy 2018; Neg CRC; Repeat prn x [place] Hypercholesterolemia Active Condition Aug 20, 2013 Entered By: JUANITA BIRCH Comment: cannot tolerate Statin's; on Zetia [place] Indigestion Active Condition [place] Peripheral vascular disease Active Condition Sep 08, 2022 Entered By: JUANITA BIRCH Comment: Stasis Derm Both LE's [place] Diagnosis: ICD-10-CM E11.65 Type 2 diabetes mellitus with hyperglycemia Active Diagnosis [place] Diagnosis: ICD-10-CM I73.9 Peripheral vascular disease, unspecified Active Diagnosis [place] Diagnosis: ICD-10-CM N18.30 Chronic kidney disease, stage 3 unspecified Active Diagnosis [place] Medications Combined list of outpatient medications from 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Medications provided include 1) outpatient medications from the last 15 months, and 2) patient-reported medications. Medication Details Route Status Patient Instructions Prescription Expires Prescription Number Last Dispense Date Ordering Provider Order Date Order Qty Source ASPIRIN 81MG TAB,EC TAKE ONE TABLET BY MOUTH ONCE DAILY ORAL ACTIVE KYRA BIRCH 2021 [facility] IELD ATORVASTATI N TAB TAKE LIPITOR BY MOUTH ONCE DAILY ORAL ACTIVE KYRA BIRCH 2019 [facility] IELD BUPROPION HCL 150MG 24HR TAB,SA TAKE ONE TABLET BY MOUTH ONCE DAILY ORAL ACTIVE KYRA BIRCH 2021 [facility] IELD EMPAGLIFLOZ IN 10MG TAB TAKE ONE TABLET BY MOUTH ONCE DAILY ORAL DISCONT INUED BY PETE R 02/05/2025 [id number] KYRA BIRCH EDUARDO 2023 90 IEITZEL EZETIMIBE 10MG TAB TAKE ONE TABLET BY MOUTH EVERY DAY ORAL ACTIVE KYRA BIRCH EDUARDO 2012 IELD FAMOTIDINE 20MG TAB TAKE ONE TABLET BY MOUTH EVERY DAY NEEDED ORAL ACTIVE KYRA BIRCH EDUARDO 2012 [facility] IELD FUROSEMIDE TAB TAKE LASIX BY MOUTH ONCE DAILY ORAL ACTIVE KYRA BIRCH EDUARDO 2019 IELD INSULIN,GLA RGINE-YFGN 100UNIT/ML INJ PEN,3ML INJECT 30 UNITS SUBCUTAN EOUSLY EVERY EVENING FOR DIABETES SUBCUT ANEOUS ACTIVE 10/09/2025 [id number] 4 ANTHONY TEJEDA 2023 5 IELD INSULIN,GLA RGINE-YFGN 100UNIT/ML INJ PEN,3ML INJECT 28 UNITS SUBCUTAN EOUSLY EVERY EVENING FOR DIABETES SUBCUT ANEOUS DISCONT INUED (EDIT) 12/13/2024 [id number] 4 ANTHONY TEJEDA 2023 10 IELD INSULIN,GLA RGINE-YFGN 100UNIT/ML INJ PEN,3ML INJECT 25 UNITS SUBCUTAN EOUSLY EVERY EVENING - SAME LANTUS SUBCUT ANEOUS DISCONT INUED (EDIT) 08/25/2024 [id number] KYRA BIRCH EDUARDO 2022 5 IELD METOPROLOL TARTRATE 25MG TAB TAKE ONE-HALF TABLET BY MOUTH TWICE DAILY ORAL ACTIVE KYRA BIRCH EDUARDO 2019 IELD SEMAGLUTIDE 0.25MG/0.37 5ML INJ,SOLN,PE N,3ML INJECT 0.25MG SUBCUTAN EOUSLY ONCE A WEEK FOR TYPE 2 DIABETES MELLITUS SUBCUT ANEOUS DISCONT INUED BY PETE R 04/03/2024 [id number] 4 ANTHONY TEJEDA 2023 1 IELD SERTRALINE HCL 100MG TAB TAKE TWO TABLETS BY MOUTH EVERY MORNING ORAL ACTIVE KYRA BIRCH EDUARDO 2012 [facility] IELD Allergies, Adverse Reactions, Alerts Combined list of allergies from 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 It does not include entries that were removed or entered in error. Substance Category Reaction Severity Reaction type Status Date Reported Comments Source EMPAGLIFLOZI N Propensity to adverse reactions to drug (finding) Dizziness active 4 [facility] SEMAGLUTIDE Propensity to adverse reactions to drug (finding) Dizziness MILD active 4 [facility] Immunizations Combined list of available immunizations from the 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 Immunization Series Date Given Administered By Site Reaction Lot Number CVX Code Drug Scrub Technician Status Comments Source INFLUENZA, UNSPECIFIED FORMULATION 2022 88 complet ed [facility] INFLUENZA, UNSPECIFIED FORMULATION 2021 88 complet ed [facility] INFLUENZA, SEASONAL, INJECTABLE 2018 141 complet ed [facility] INFLUENZA, SEASONAL, INJECTABLE 2017 141 complet ed outside pcp [facility] INFLUENZA, SEASONAL, INJECTABLE 2017 141 complet ed [facility] PNEUMOCOCCAL CONJUGATE PCV 13 2016 133 complet ed [place] TDAP 2016 115 complet ed Site: Right Deltoid [place] FLU,3 YRS (HISTORICAL) 2015 88 complet ed [facility] ZOSTER (HISTORICAL) 2015 121 complet ed [place] PNEUMOCOCCAL, UNSPECIFIED FORMULATION 2012 109 complet ed [facility] FLU,3 YRS (HISTORICAL) 2012 88 complet ed approcx mo [facility] Results Combined list of recent chemistry, hematology and other laboratory results from Department of Defense and Veterans Affairs, ranging from 15 months to all on record, depending upon the facility. Order Name Results Value Reference Range Date Interpretation Specimen Comments Source LIVER FUNCTION PROTEIN [MASS/VOLUM E] IN SERUM OR PLASMA 6.9 g/dL 6.0 - 8.3 09/02 Specimen Type: SERUM No comment entered. Ordering Provider: JUANITA BIRCH Report Released Date/Time: Aug 20, 2024 02:24 PM Reporting Lab: [facility] [place] [facility] [address] [facility] [address] Performing Lab: [facility] [place] [facility] [address] [facility] [address] [place] LIVER FUNCTION ALBUMIN [MASS/VOLUM E] IN SERUM OR PLASMA 3.6 g/dL 3.5 - 5.0 09/02 Specimen Type: SERUM No comment entered. Ordering Provider: JUANITA BIRCH Report Released Date/Time: Aug 20, 2024 02:24 PM Reporting Lab: [facility] [place] [facility] [address] [facility] [address] Performing Lab: [facility] [place] [address] [address] [place] LIVER FUNCTION ALKALINE PHOSPHATASE [ENZYMATIC ACTIVITY/VO LUME] IN SERUM OR PLASMA 70 U/L 40 - 150 09/02 Specimen Type: SERUM No comment entered. Ordering Provider: JUANITA BIRCH Report Released Date/Time: Aug 20, 2024 02:24 PM Reporting Lab: [facility] [place] [address] [address] Performing Lab: [facility] [place] [address] [address] [place] LIVER FUNCTION ASPARTATE AMINOTRANSF ERASE [ENZYMATIC ACTIVITY/VO LUME] IN SERUM OR PLASMA 21 U/L 5 - 34 09/02 Specimen Type: SERUM No comment entered. Ordering Provider: JUANITA BIRCH Report Released Date/Time: Aug 20, 2024 02:24 PM Reporting Lab: [facility] [place] [facility] [address] [facility] [address] Performing Lab: [facility] [address] [address] [place] LIVER FUNCTION ALANINE AMINOTRANSF ERASE [ENZYMATIC ACTIVITY/VO LUME] IN SERUM OR PLASMA 29 U/L 09/02 Specimen Type: SERUM No comment entered. Ordering Provider: JUANITA BIRCH Report Released Date/Time: Aug 20, 2024 02:24 PM Reporting Lab: [facility] [address] [address] Performing Lab: [facility] [address] [facility] [address] [place] LIVER FUNCTION BILIRUBIN.T OTAL [MASS/VOLUM E] IN SERUM OR PLASMA 0.6 mg/dL 0.2 - 1.2 09/02 Specimen Type: SERUM No comment entered. Ordering Provider: JUANITA BIRCH Report Released Date/Time: Aug 20, 2024 02:24 PM Reporting Lab: [facility] [address] [facility] [address] Performing Lab: [facility] [address] [facility] [address] [place] LIPID PANEL FASTING CHOLESTEROL [MASS/VOLUM E] IN SERUM OR PLASMA 167 mg/dL 09/02 Specimen Type: SERUM No comment entered. Ordering Provider: JUANITA BIRCH Report Released Date/Time: Aug 20, 2024 02:24 PM Reporting Lab: [facility] [address] [facility] [address] Performing Lab: [facility] [address] [address] [place] LIPID PANEL FASTING TRIGLYCERID E [MASS/VOLUM E] IN SERUM OR PLASMA 102 mg/dL 0 - 150 09/02 Specimen Type: SERUM No comment entered. Ordering Provider: JUANITA BIRCH Report Released Date/Time: Aug 20, 2024 02:24 PM Reporting Lab: [facility] [address] [facility] [address] Performing Lab: [facility] [address] [address] [place] LIPID PANEL FASTING CHOLESTEROL IN LDL [MASS/VOLUM E] IN SERUM OR PLASMA BY CALCULATION 76 mg/dL 0 - 129 09/02 Specimen Type: SERUM No comment entered. Ordering Provider: JUANITA BIRCH Report Released Date/Time: Aug 20, 2024 02:24 PM Reporting Lab: [facility] [address] Performing Lab: [facility]ITALRUAB HOSPITALN [facility] [address] [place] LIPID PANEL FASTING CHOLESTEROL .TOTAL/CHOL ESTEROL IN HDL [MASS RATIO] IN SERUM OR PLASMA 2.4 09/02 Specimen Type: SERUM No comment entered. Ordering Provider: JUANITA BIRCH Report Released Date/Time: Aug 20, 2024 02:24 PM Reporting Lab: [address] [address] Performing Lab: [address] [address] [place] LIPID PANEL FASTING CHOLESTEROL IN HDL [MASS/VOLUM E] IN SERUM OR PLASMA 71 mg/dL 40 - 60 09/02 H Specimen Type: SERUM No comment entered. Ordering Provider: JUANITA BIRCH Report Released Date/Time: Aug 20, 2024 02:24 PM Reporting Lab: [address] [address] Performing Lab: [address] [address] [place] CALCIUM CALCIUM [MASS/VOLUM E] IN SERUM OR PLASMA 9.1 mg/dL 8.5 - 10.2 09/02 Specimen Type: SERUM No comment entered. Ordering Provider: JUANITA BIRCH Report Released Date/Time: Aug 20, 2024 02:24 PM Reporting Lab: [address] [address] Performing Lab: [address] [address] [place] URIC ACID URATE [MASS/VOLUM E] IN SERUM OR PLASMA 7.9 mg/dL 3.5 - 7.2 09/02 H Specimen Type: SERUM No comment entered. Ordering Provider: JUANITA BIRCH Report Released Date/Time: Aug 20, 2024 02:24 PM Reporting Lab: [address] [address] Performing Lab: [address] [address] [place] VITAMIN D (25-OH) 25-HYDROXYV ITAMIN D3 [MASS/VOLUM E] IN SERUM OR PLASMA 45 ng/mL 20 - 50 09/02 Specimen Type: SERUM No comment entered. Ordering Provider: JUANITA BIRCH Report Released Date/Time: Aug 20, 2024 02:24 PM Reporting Lab: [address] [address] Performing Lab: [address] [address] [place] FERRITIN FERRITIN [MASS/VOLUM E] IN SERUM OR PLASMA 302 ng/mL 20 - 300 09/02 H Specimen Type: SERUM No comment entered. Ordering Provider: JUANITA BIRCH Report Released Date/Time: Aug 20, 2024 02:24 PM Reporting Lab: [address] [address] Performing Lab: [address] [address] [email or web address] HEMOGLOBI N A1C PANEL HEMOGLOBIN A1C/HEMOGLO BIN.TOTAL IN BLOOD BY HPLC 7.1 4.0 - 5.6 09/02 H Specimen Type: BLOOD Comment: Values obtained from A1C measurement s can vary. For atypical A1C assays, a reported value of 7.0 could actually be between 6.72 and 7.28 if measured by a reference method. A reported value of 9.0 could actually be between 8.73 and 9.27. Ref: http://www. ngsp.org/[place] Pdata.asp Ordering Provider: JUANITA BIRCH Report Released Date/Time: Aug 20, 2024 02:24 PM Reporting Lab: [address] [address] Performing Lab: [address] [address] [email or web address] CBC AND DIFF (AUTO) LEUKOCYTES [#/VOLUME] IN BLOOD BY AUTOMATED COUNT 5.39 10*3/u L 4.50 - 11.00 09/02 Specimen Type: BLOOD No comment entered. Ordering Provider: JUANITA BIRCH Report Released Date/Time: Aug 20, 2024 02:24 PM Reporting Lab: [address] [place] [address] Performing Lab: [facility] [address] [facility] [address] [place] CBC AND DIFF (AUTO) ERYTHROCYTE S [#/VOLUME] IN BLOOD BY AUTOMATED COUNT 4.07 10*6/u L 4.23 - 5.66 09/02 L Specimen Type: BLOOD No comment entered. Ordering Provider: JUANITA BIRCH Report Released Date/Time: Aug 20, 2024 02:24 PM Reporting Lab: [facility] [address] [address] Performing Lab: [address] [address] [place] CBC AND DIFF (AUTO) HEMOGLOBIN [MASS/VOLUM E] IN BLOOD 12.9 g/dL 12.8 - 17 09/02 Specimen Type: BLOOD No comment entered. Ordering Provider: JUANITA BIRCH Report Released Date/Time: Aug 20, 2024 02:24 PM Reporting Lab: [address] [address] Performing Lab: [address] [address] [place] CBC AND DIFF (AUTO) HEMATOCRIT [VOLUME FRACTION] OF BLOOD BY AUTOMATED COUNT 37.6 39.2 - 50.4 09/02 L Specimen Type: BLOOD No comment entered. Ordering Provider: JUANITA BIRCH Report Released Date/Time: Aug 20, 2024 02:24 PM Reporting Lab: [address] [address] Performing Lab: [address] [address] [place] CBC AND DIFF (AUTO) MCV [ENTITIC VOLUME] BY AUTOMATED COUNT 92.4 fL 82 - 99 09/02 Specimen Type: BLOOD No comment entered. Ordering Provider: JUANITA BIRCH Report Released Date/Time: Aug 20, 2024 02:24 PM Reporting Lab: [address] [address] Performing Lab: [facility] [place] [facility] [address] [facility] [address] [place] CBC AND DIFF (AUTO) MCHC [MASS/VOLUM E] BY AUTOMATED COUNT 34.3 g/dL 30.8 - 35.1 09/02 Specimen Type: BLOOD No comment entered. Ordering Provider: JUANITA BIRCH Report Released Date/Time: Aug 20, 2024 02:24 PM Reporting Lab: [facility] [place] [facility] [address] [facility] [address] Performing Lab: [facility] [address] [facility] [address] [place] CBC AND DIFF (AUTO) PLATELETS [#/VOLUME] IN BLOOD BY AUTOMATED COUNT 164 10*3/u L 140 - 360 09/02 Specimen Type: BLOOD No comment entered. Ordering Provider: JUANITA BIRCH Report Released Date/Time: Aug 20, 2024 02:24 PM Reporting Lab: [facility] [place] [facility] [address] [facility] [address] Performing Lab: [facility] [place] [facility] [address] [facility] [address] [place] CBC AND DIFF (AUTO) ERYTHROCYTE DISTRIBUTIO N WIDTH [RATIO] BY AUTOMATED COUNT 13.0 12.0 - 16.0 09/02 Specimen Type: BLOOD No comment entered. Ordering Provider: JUANITA BIRCH Report Released Date/Time: Aug 20, 2024 02:24 PM Reporting Lab: [facility] [place] [facility] [address] [facility] [address] Performing Lab: [facility] [place] [facility] [address] [facility] [address] [place] CBC AND DIFF (AUTO) MONOCYTES [#/VOLUME] IN BLOOD BY AUTOMATED COUNT 0.49 10*3/u L 0.30 - 1.10 09/02 Specimen Type: BLOOD No comment entered. Ordering Provider: JUANITA BIRCH Report Released Date/Time: Aug 20, 2024 02:24 PM Reporting Lab: [facility] [address] [address] Performing Lab: [facility] [place] [facility] [address] [facility] [address] [place] CBC AND DIFF (AUTO) MCH [ENTITIC MASS] BY AUTOMATED COUNT 31.7 pg 26.2 - 32.6 09/02 Specimen Type: BLOOD No comment entered. Ordering Provider: JUANITA BIRCH Report Released Date/Time: Aug 20, 2024 02:24 PM Reporting Lab: [facility] [place] [facility] [address] [facility] [address] Performing Lab: [facility] [place] [address] [address] [place] CBC AND DIFF (AUTO) NEUTROPHILS /100 LEUKOCYTES IN BLOOD BY AUTOMATED COUNT 71.1 43.7 - 75.8 09/02 Specimen Type: BLOOD No comment entered. Ordering Provider: JUANITA BIRCH Report Released Date/Time: Aug 20, 2024 02:24 PM Reporting Lab: [facility] [place] [place] [address] [address] Performing Lab: [facility] [place] [address] [address] [place] CBC AND DIFF (AUTO) LYMPHOCYTES /100 LEUKOCYTES IN BLOOD BY AUTOMATED COUNT 16.1 14.0 - 42.3 09/02 Specimen Type: BLOOD No comment entered. Ordering Provider: JUANITA BIRCH Report Released Date/Time: Aug 20, 2024 02:24 PM Reporting Lab: [facility]ITALR[facility] [place] [address] [address] Performing Lab: [facility] [place] [address] [address] [place] CBC AND DIFF (AUTO) MONOCYTES/1 00 LEUKOCYTES IN BLOOD BY AUTOMATED COUNT 9.1 5.1 - 13.7 09/02 Specimen Type: BLOOD No comment entered. Ordering Provider: JUANITA BIRCH Report Released Date/Time: Aug 20, 2024 02:24 PM Reporting Lab: [facility] [place] [address] [address] Performing Lab: [facility]RL [facility] [address] [address] [place] CBC AND DIFF (AUTO) EOSINOPHILS /100 LEUKOCYTES IN BLOOD BY AUTOMATED COUNT 3.5 0.4 - 6.8 09/02 Specimen Type: BLOOD No comment entered. Ordering Provider: JUANITA BIRCH Report Released Date/Time: Aug 20, 2024 02:24 PM Reporting Lab: [facility] [address] [facility] [address] Performing Lab: [facility] [address] [place] CBC AND DIFF (AUTO) BASOPHILS/1 00 LEUKOCYTES IN BLOOD BY AUTOMATED COUNT 0.0 0.1 - 2.0 09/02 L Specimen Type: BLOOD No comment entered. Ordering Provider: JUANITA BIRCH Report Released Date/Time: Aug 20, 2024 02:24 PM Reporting Lab: [facility]ITALRST[facility] E[facility]TRN [address] [address] Performing Lab: [facility]ITALRUAB HOSPITALN [address] [address] [place] CBC AND DIFF (AUTO) NEUTROPHILS [#/VOLUME] IN BLOOD BY AUTOMATED COUNT 3.83 10*3/u L 2.20 - 7.60 09/02 Specimen Type: BLOOD No comment entered. Ordering Provider: JUANITA BIRCH Report Released Date/Time: Aug 20, 2024 02:24 PM Reporting Lab: [facility]ITALR[facility]TRN [facility] [address] Performing Lab: [facility] [address] [place] CBC AND DIFF (AUTO) LYMPHOCYTES [#/VOLUME] IN BLOOD BY AUTOMATED COUNT 0.87 10*3/u L 1.00 - 3.20 09/02 L Specimen Type: BLOOD No comment entered. Ordering Provider: JUANITA BIRCH Report Released Date/Time: Aug 20, 2024 02:24 PM Reporting Lab: [facility]RL [facility] [address] [address] Performing Lab: [facility]ITALRST[facility]TRN [facility]USE[address] [address] [place] CBC AND DIFF (AUTO) EOSINOPHILS [#/VOLUME] IN BLOOD BY AUTOMATED COUNT 0.19 10*3/u L 0.03 - 0.44 09/02 Specimen Type: BLOOD No comment entered. Ordering Provider: JUANITA BIRCH Report Released Date/Time: Aug 20, 2024 02:24 PM Reporting Lab: [address] [address] Performing Lab: [address] [address] [place] CBC AND DIFF (AUTO) BASOPHILS [#/VOLUME] IN BLOOD BY AUTOMATED COUNT 0.00 10*3/u L 0.01 - 0.13 09/02 L Specimen Type: BLOOD No comment entered. Ordering Provider: JUANITA BIRCH Report Released Date/Time: Aug 20, 2024 02:24 PM Reporting Lab: [address] [address] Performing Lab: [address] [address] [place] CBC AND DIFF (AUTO) IMMATURE GRANULOCYTE S/100 LEUKOCYTES IN BLOOD BY AUTOMATED COUNT 0.2 0.0 - 0.7 09/02 Specimen Type: BLOOD No comment entered. Ordering Provider: JUANITA BIRCH Report Released Date/Time: Aug 20, 2024 02:24 PM Reporting Lab: [address] [address] Performing Lab: [address] [address] [place] CBC AND DIFF (AUTO) IMMATURE GRANULOCYTE S [#/VOLUME] IN BLOOD 0.01 10*3/u L 0.00 - 0.06 09/02 Specimen Type: BLOOD No comment entered. Ordering Provider: JUANITA BIRCH Report Released Date/Time: Aug 20, 2024 02:24 PM Reporting Lab: [address] [address] Performing Lab: [address] [address] [place] CBC AND DIFF (AUTO) NRBC % 0.0 0.0 - 0.0 09/02 Specimen Type: BLOOD No comment entered. Ordering Provider: JUANITA BIRCH Report Released Date/Time: Aug 20, 2024 02:24 PM Reporting [facility]: [facility] [address] [address] Performing Lab: [facility] [address] [address] [place] CBC AND DIFF (AUTO) NRBC, ABS 0.00 10*3/u L 0.00 - 0.00 09/02 Specimen Type: BLOOD No comment entered. Ordering Provider: JUANITA BIRCH Report Released Date/Time: Aug 20, 2024 02:24 PM Reporting Lab: [address] [address] Performing Lab: [address] [address] [place] TSH THYROTROPIN [UNITS/VOLU ME] IN SERUM OR PLASMA 4.66 u[IU]/ mL 0.35 - 5.00 09/02 Specimen Type: SERUM No comment entered. Ordering Provider: JUANITA BIRCH Report Released Date/Time: Aug 20, 2024 02:24 PM Reporting Lab: [address] [address] Performing Lab: [facility] [address] [address] [place] MICROALBU MIN CREATININ E RATIO PANEL MICROALBUMI N/CREATININ E [MASS RATIO] IN URINE 9.9 mg/g 0 - 29.9 09/02 Specimen Type: URINE No comment entered. Ordering Provider: JUANITA BIRCH Report Released Date/Time: Aug 20, 2024 02:24 PM Reporting Lab: [facility] [facility] [address] [address] Performing Lab: [facility] [address] [address] [place] MICROALBU MIN CREATININ E RATIO PANEL MICROALBUMI N [MASS/VOLUM E] IN URINE 0.8 mg/dL 09/02 Specimen Type: URINE No comment entered. Ordering Provider: JUANITA BIRCH Report Released Date/Time: Aug 20, 2024 02:24 PM Reporting Lab: [facility] [address] [facility] [address] Performing Lab: [facility] [address] [facility] [address] MICHEL ROBBINS MICROALBU MIN CREATININ E RATIO PANEL CREATININE [MASS/VOLUM E] IN URINE 80.78 mg/dL 09/02 Specimen Type: URINE No comment entered. Ordering Provider: JUANITA BIRCH Report Released Date/Time: Aug 20, 2024 02:24 PM Reporting Lab: [facility] [address] [facility] [address] Performing Lab: [facility] [address] [address] [place]rel Vital Signs Combined list of inpatient and outpatient Vital Signs from Department of Defense and Veterans Affairs, ranging from 12 months to all on record, depending upon the facility. Vital Sign Value Date Comments Source SYSTOLIC BLOOD PRESSURE 126 09/03/2024 10:28:15 [place] DIASTOLIC BLOOD PRESSURE 76 09/03/2024 10:28:15 [place] PULSE OXIMETRY 98 09/03/2024 10:28:15 S PRINFORMERLY [facility] WEIGHT 236 09/03/2024 10:28:15 [facility] BMI 34kg/m2 09/03/2024 10:28:15 [facility] TEMPER[facility] 97.6 09/03/2024 10:28:15 [place] PULSE 79 09/03/2024 10:28:15 [place] [facility] RESPIRATION 18 09/03/2024 10:28:15 [place] Encounters Combined list of: 1) Encounters from Department of Veterans Affairs facilities going back up to thelast 18 months. 2) Encounters from the Department of Defense facilities going back up to 280 months. Location Location Details Encounter Type Encounter Number Reason For Visit Attending Provider ADM Date DC Date Status Disposition Source [facility] Outpatient Encounter [id number] 06/06 [facility] Encounter [id number] 06/30 [facility] Outpatient Encounter [id number] 07/07 [facility] Outpatient Encounter [id number] 08/04 [facility] Outpatient Encounter [id number] 08/06 [facility] Out[facility] Encounter [id number] 08/25 [facility] Outpatient Encounter [id number] 08/29 [facility] OFFICE O/P EST MOD 30-39 MIN [id number] Diagnos is: ICD-10- CM N18.30 Chronic kidney disease , stage 3 unspeci fied
YOBANI BIRCH 09/05 [facility] MTMS BY PHARM ADDL 15 MIN [id number] Diagnos is: ICD-10- CM 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< br/> NIKHILSOPHIA MEMBRENO IE 11/07 [facility] IE [facility] QNHP OL DIG ASSMT&MGMT 5-10 [id number] Diagnos is: ICD-10- CM 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< br/> Charlene COOK 01/03 /2024 [facility] Out[facility] Encounter [id number] YOBANI BIRCH 12/11 [facility] [place] MTMS BY PHARM ADDL 15 MIN [id number] Diagnos is: ICD-10- CM 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< br/> NIKHIL,SOPHIA IE 12/12 [place] [facility] Outpatient Encounter [id number] WALDEMAR MCCALLUM 12/13 [facility] Out[facility] Encounter [id number] 01/16 [facility] Outpatient Encounter [id number] 01/16 [facility] Out[facility] Encounter [id number] 01/16 [facility] Outpatient Encounter [id number] 01/21 [facility] [place] MTMS BY PHARM ADDL 15 MIN [id number] Diagnos is: ICD-10- CM 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< br/> NIKHIL,SOPHIA IE 01/29 [place] [facility] Out[facility] Encounter [id number] 01/30 [facility] Outpatient Encounter [id number] 01/30 [facility] [place] MTMS BY PHARM HOBBER 15 MIN [id number] Diagnos is: ICD-10- CM 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< br/> NIKHIL,SOPHIA IE 02/06 [facility] [place] MTMS BY PHARM ADDL 15 MIN [id number] Diagnos is: ICD-10- CM 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< br/> NIKHIL,SOPHIA IE 03/04 [facility] QNHP OL DIG ASSMT&MGMT 5-10 [id number] Diagnos is: ICD-10- CM 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< br/> SHAHNAZ COLLADO 03/04 [facility] Outpatient Encounter [id number] 04/02 [facility] Outpatient Encounter [id number] 04/04 [facility] Outpatient Encounter [id number] 04/05 [facility] [place] [place] MTMS BY PHARM ADDL 15 MIN [id number] Diagnos is: ICD-10- CM 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< br/> NIKHIL,SOPHIA IE 04/15 [facility] [place] OFFICE O/P EST MOD 30 MIN [id number] Diagnos is: ICD-10- CM 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 Social History Type Response Date Comment Sourc e Tobacco smoking status [facility] VA-TOBACCO FORMER USER 09/03/2024 [place] History of tobacco use NH-TOBACCO QUIT 15 YRS OR MORE 09/03/2024 [place] History of tobacco use NH-TOBACCO FORMER USER 09/05/2023 [place] History of tobacco use NH-TOBACCO FORMER USER 09/08/2022 [place] History of tobacco use VA-TOBACCO FORMER USER 07/08/2021 [place] History of tobacco use VA-TOBACCO NEVER USED 05/28/2020 [facility] History of tobacco use NH-TOBACCO QUIT 15 YRS OR MORE 05/29/2018 [place] History of tobacco use LIFETIME NON-TOBACCO USER 05/29/2018 [place] History of tobacco use QUIT TOBACCO USE > 7 YEARS AGO 05/04/2017 [place] History of tobacco use QUIT TOBACCO USE > 7 YEARS AGO 04/28/2016 smoked for 4 years about 2 pack a week quit 50 years ago [place] History of tobacco use QUIT TOBACCO USE > 7 YEARS AGO 08/20/2013 22 yo [place] Plan of Care List of future care activities from Department of Veterans Affairs facilities. Additional future care activities may be listed in the Assessment and Plan section. Date/Time Care Activity Care Activity Detail Facili ty 10/25/2024 AMBULATORY - MEDICINE [facility]
--- OUTSIDE RECORDS SUMMARY | 2024-10-15 16:44 | XMS_ITS | Encounter Summary ---
Author Name [facility] [place] Address [address] [place] [id number] Care Team Providers Care Automotive Brake Technician Name Role Phone JUANITA BIRCH Primary Care [...] Bradford's Name Patient's Relationship to Policy Bradford [facility] MEDICARE SUPPLEMEN HANS MA IND Nov 06, 2016 MEDICAR E SUPPLEM E [id number] [place] PATIENT MEDICARE (WNR) MEDICARE (M) PART A May 06, 2008 PART A [id number] [facility] Rao O[place] PATIENT MEDICARE (WNR) MEDICARE (M) PART B May 06, 2008 PART B [id number] [facility] [id number] [place] PATIENT MEDICARE (WNR) MEDICARE (M) PART A May 06, 2008 PART A [id number] [place] PATIENT MEDICARE (WNR) MEDICARE (M) PART B May 06, 2008 PART B [id number] [phone] [place] PATIENT Selected Encounter This section includes the information on record at [place] for the Encounter. Date/Time Encounter Type Encounter Description Reason Provider Source Nov 07, 2023 10:30 AM MTMS BY PHARM ADDL 15 MIN CLINICAL PHARMACY ICD-10-CM E11.65 Type 2 diabetes mellitus with hyperglycemia IDA WONG Darrel Encounter Template Text not used by [place] Assessments - Encounter Diagnoses This section includes the primary and secondary diagnoses documented for the Encounter. Date/Time Primary/Secondary Diagnosis Diagnosis Name Provider Source Nov 07, 2023 11:28 AM PRIMARY Type 2 diabetes mellitus with hyperglycemia IDA WONG GERRI Plan of Treatment: Future Appointments (+ 6 months) and Future Tests (+/- 45 days) The Plan of Treatment section includes future care activities for the patient from all [place] [facility] This section includes future appointments and future orders which are active, pending or scheduled. Future Appointments This section includes appointments that were scheduled to occur 6 months from the date of the Encounter, up to a maximum of 20 appointments. The data comes from all [place] treatment [facility]. Appointment Date/Time Appointment Type Appointme nt Facility Name Dec 12, 2023 09:00 AM AMBULATORY - MEDICINE [facility] Jan 30, 2024 09:00 AM AMBULATORY - MEDICINE [facility] Feb 07, 2024 09:30 AM AMBULATORY - MEDICINE [facility] Mar 04, 2024 09:00 AM AMBULATORY - MEDICINE [facility] Apr 15, 2024 09:00 AM AMBULATORY - MEDICINE [facility] Active, Pending, and Scheduled Orders This section includes a listing of several types of active, pending, and scheduled orders, including clinic medications orders, diagnostic test orders, procedure orders and consult orders; where the start date of the order is 45 days before the date of the Encounter or 45 days after the date of theEncounter. The data comes from all [place] treatment [facility]. Test Date/Time Test Type Test Details Facility Name Dec 08, 2023 12:00 AM Laboratory - Chemi stry Order MICROALBUMIN CREATININE RATIO PANEL URINE (RANDOM) [facility] Dec 08, 2023 12:00 AM Laboratory - Chemi stry Order URINALYSIS URINE [facility] Dec 08, 2023 12:00 AM Laboratory - Chemi stry Order CBC AND DIFF (AUTO) BLOOD (LAV-BLOOD) [facility] Dec 08, 2023 12:00 AM Laboratory - Chemi stry Order HEMOGLOBIN A1C PANEL BLOOD (LAV-BLOOD) [facility] Dec 08, 2023 12:00 AM Laboratory - Chemi stry Order LIPID PANEL FASTING BLOOD (SST-SERUM) [facility] Dec 08, 2023 12:00 AM Laboratory - Chemi stry Order BASIC METABOLIC PANEL (fasting) BLOOD (SST-SERUM) [facility] Dec 08, 2023 12:00 AM Laboratory - Chemi stry Order LIVER FUNCTION BLOOD (SST-SERUM) [facility] Dec 08, 2023 12:00 AM Laboratory - Chemi stry Order CALCIUM BLOOD (SST-SERUM) [facility] Social History: Smoking Status (Most current) and Tobacco Use (All prior to encounter date) This section includes the most current, and the historical, smoking and tobacco- related health factors from the [place] facility where the Encounter took place. Current Smoking Status This section includes the most current smoking, or tobacco-related health factor, from the [place] facility where the Encounter took place. Date/Time Current Smoking Status Comment Facil [facility] Sep 05, 2023 10:00 AM VA-TOBACCO QUIT 15 YRS OR MORE [facility] Tobacco Use History This section includes a history of the smoking, or tobacco-related health factors, that were collected on or before the date of the Encounter. The data comes from the [place] facility where the Encounter took place. Date/Time Smoking Status/Tobacco Use Comment F acility Sep 05, 2023 10:00 AM VA-TOBACCO NEVER USED [facility] Sep 05, 2023 10:00 AM VA-TOBACCO QUIT 15 YRS OR MORE [facility] Sep 08, 2022 11:30 AM VA-TOBACCO FORMER USER [facility] Sep 08, 2022 11:30 AM VA-TOBACCO QUIT 15 YRS OR MORE [facility] Jul 08, 2021 09:30 AM VA-TOBACCO FORMER USER [facility] Jul 08, 2021 09:30 AM VA-TOBACCO QUIT 15 YRS OR MORE [facility] May 28, 2020 10:04 AM VA-TOBACCO NEVER USED [facility] May 29, 2018 09:51 AM VA-TOBACCO FORMER USER [facility] May 29, 2018 09:51 AM VA-TOBACCO QUIT 15 YRS OR MORE [facility] May 29, 2018 09:39 AM LIFETIME NON-TOBACCO USER [facility] May 04, 2017 02:38 PM QUIT TOBACCO USE > 7 YEARS AGO [facility] Apr 28, 2016 10:02 AM QUIT TOBACCO USE > 7 YEARS AGO smoked for 4 years about 2 pack a week quit 50 years ago [facility] Aug 20, 2013 09:48 AM QUIT TOBACCO USE > 7 YEARS AGO 22 yo [facility] Encounter Notes: All associated encounter notes This section contains the clinical notes associated to the Encounter. Date/Time Encounter Note(s) Provider Source Nov 07, 2023 10:30 AM PHARMACY [place] T NOTE: LOCAL TITLE: PHARMACY CLINIC NOTE STANDARD TITLE: PHARMACY OUTPATIENT NOTE DATE OF NOTE: NOV 07, 2023@10:30 ENTRY DATE: NOV 07, 2023@10:30:47 AUTHOR: IDA WONG COSIGNER: URGENCY: STATUS: COMPLETED Known Allergies: Patient has answered NKA MATHEW GAMBLE CASS presented for face to face initial consult for diabetes management treatment. Subjective: referred to pharmacy PACT clinic by PCP for consideration of GLP-1 agonist or SGLT-2 inhibitor. 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 He is followed by non-VA PCP q3 months with next visit at the end of November 2023. Per PCP note, last A1c 6.7% (08/2023) non-VA. Objective: Diabetes Medication Regimen: insulin glargine 30 units daily (PM) Most recent A1c: HEMOGLOBIN A1C TREND Collection DT Spec HGBA1c 05/24/2022 11:18 BLOOD 8.1 H 06/30/2021 08:28 BLOOD 8.7 H 05/27/2019 07:45 BLOOD 8.2 H 04/26/2016 10:39 BLOOD 7.0 H LIPID PANEL TREND Collection DT Spec CHOL HDL CHO/HDL LDL-c TRIG 05/24/2022 11:18 SERUM 163 62 H 2.6 82 96 06/30/2021 08:28 SERUM 148 61 H 2.4 69 90 05/27/2019 07:45 SERUM 302 H 67 H 4.5 207 H 141 04/26/2016 10:39 SERUM 214 H 61 H 3.5 132 H 105 CREATININE-EGFR - NONE FOUND Patient self-monitoring of blood glucose: At home: X Patient self-monitors blood glucose 1x day and reports the following (mg/dl): 11/07/23 SMBG 1x/day. FBG ~130-160mg/dL. Last night 140mg/dL. Patient eats on avg. 2x day: Diet Patterns: B: goes out w/ ; eggs + toast + potato or pancakes L: skips D: varies; leftover stew Snacks: skips; sometimes ice-cream Drinks: water Exercise: limited w/ cold water HYPOGLYCEMIC Events: 0 in the last 2 weeks Hypoglycemia recognition & treatment reviewed: Yes EtOH/Illicit drugs: Alcohol: denies Tobacco: denies Other: Hx CVD Hx TURP 2011 Denies personal or fhx thyroid cancer or MENS2 Denies hx pancreatitis Personal Goals: Asessment/Plan: A1c is currently AT goal of <7-8%. Non-VA A1c and reported BG at goal. Discussed SGLT-2 inhibitor or GLP-1 agonist in setting of CVD/CKD. Pt would like to discuss with non-VA PCP at upcoming visit 11/2023. Also discussed CGM; pt interested in Zentrick 3 + reader (will try to download johnny on phone as well). If able to d/c insulin in the future, will d/c Chelsie. Will place NF request. Will f/u in 6 week to discuss plan of care on non- insulin therapies. Diabetes (Goal A1c<7%, FBG 90-110mg/dL, 2hPP<180mg/dL): - Continue insulin glargine 30 units daily - Continue to SMBG 1x/day - Monitor for s/sx hypoglycemia and contact clinic if BG consistently < 70mg/dL - Healthy dietary lifestyle modifications encouraged - Repeat A1c: November 2023; will order for collection at f/u Clinic's Next Scheduled Follow-up: 4-6 weeks HTN: Last BP elevated; not on TAMMIE-I/ARB. Counseled; defer to PCP. Has f/u with non-VA PCP 11/2023. ASCVD: atorvastatin 80mg/day. Microalb: 13.2mg/G (05/2022) History of Preventive Care: Most recent visit to electrician deck: none; counseled Most recent visit to optometry: non-VA 02/2023; no DR reported. Time Spent: 45 minutes PBM PharmD Pharmacotherapy Rem V12: PHARMACIST INTERVENTIONS: TYPE 2 DIABETES MELLITUS Medication monitoring, no dosage change required, continue to monitor and assess Medication reconciliation (changes to active VA and non-VA medication lists to reconcile differences) No changes to medication lists made (medication review completed, no discrepancies identified) /celina/ Ida Wong PharmD Clinical Pharmacy Practitioner Signed: 11/07/2023 11:28 IDA [place]
--- OUTSIDE RECORDS SUMMARY | 2024-10-15 16:45 | XMS_ITS | Encounter Summary ---
Author Name [facility] [place] Address [address] [place] [id number] Care Team Providers Care Car Checker Name Role Phone JUANITA BIRCH Primary Care [...] Policy Bradford [facility] Nov [facility], 2016 MEDICAR E SUPPLEM E [id number] Rao ODE[place] PATIENT MEDICARE (WNR) MEDICARE (M) PART A May 06, 2008 PART A [id number] [facility] Rao ODELL PATIENT MEDICARE (WNR) MEDICARE (M) PART B May 06, 2008 PART B [id number] Rao O[place] PATIENT MEDICARE (WNR) MEDICARE (M) PART A May 06, 2008 PART A [id number] [place] PATIENT MEDICARE (WNR) MEDICARE (M) PART B May 06, 2008 PART B [id number] Rao ODE[place] PATIENT Selected Encounter This section includes the information on record at [place] for the Encounter. Date/Time Encounter Type Encounter Description Reason Pro vider Source Jan 17, 2024 12:00 AM Outpatient Encounter EVENT (HISTORICAL) [facility] Encounter Template Text not used by [place] Plan of Treatment: Future Appointments (+ 6 months) and Future Tests (+/- 45 days) The Plan of Treatment section includes future care activities for the patient from all [place] treatmentfacilities. This section includes future appointments and future orders which are active, pending or scheduled. Future Appointments This section includes appointments that were scheduled to occur 6 months from the date of the Encounter, up to a maximum of 20 appointments. The data comes from all [place] treatment facilities. Appointment Date/Time Appointment Type Appointme nt Facility Name Jan 30, 2024 09:00 AM AMBULATORY - MEDICINE [facility] Feb 07, 2024 09:30 AM AMBULATORY - MEDICINE [facility] NTR [facility] Mar 04, 2024 09:00 AM AMBULATORY - MEDICINE [facility] Apr 15, 2024 09:00 AM AMBULATORY - MEDICINE [facility] Active, Pending, and Scheduled Orders This section includes a listing of several types of active, pending, and scheduled orders, including clinic medications orders, diagnostic test orders, procedure orders and consult orders; where the start date of the order is 45 days before the date of the Encounter or 45 days after the date of theEncounter. The data comes from all [facility]. Test Date/Time Test Type Test Details Facility Name Dec 08, 2023 12:00 AM Laboratory - Chemi stry Order MICROALBUMIN CREATININE RATIO PANEL URINE (RANDOM) [facility] Dec 08, 2023 12:00 AM Laboratory - Chemi stry Order URINALYSIS URINE [facility] Dec 08, 2023 12:00 AM Laboratory - Chemi stry Order CBC AND DIFF (AUTO) BLOOD (LAV-BLOOD) [facility] Dec 08, 2023 12:00 AM Laboratory - Chemi stry Order HEMOGLOBIN A1C PANEL BLOOD (LAV-BLOOD) [facility] Dec 08, 2023 12:00 AM Laboratory - Chemi stry Order LIPID PANEL FASTING BLOOD (SST-SERUM) [facility] Dec 08, 2023 12:00 AM Laboratory - Chemi stry Order BASIC METABOLIC PANEL (fasting) BLOOD (SST-SERUM) [facility] Dec 08, 2023 12:00 AM Laboratory - Chemi stry Order LIVER FUNCTION BLOOD ([facility]-SERUM) [facility] Dec 08, 2023 12:00 AM Laboratory - Chemi stry Order CALCIUM BLOOD ([facility]-SERUM) [facility]
--- OUTSIDE RECORDS SUMMARY | 2024-10-15 16:45 | XMS_ITS | Encounter Summary ---
Author Name [facility] [facility] [place] [facility] [place] Address [address] [place] [id number] Care Team Providers Care Fur Feeder Name Role Phone JUANITA BIRCH Primary Care [...] Bradford's Name Patient's Relationship to Policy Bradford [facility] MEDICARE SUPPLEMEN HANS [place] IND Nov 06, 2016 MEDICAR E SUPPLEM E [id number] Rao ODELL PATIENT MEDICARE (WNR) MEDICARE (M) PART A May 06, 2008 PART A [id number] [facility] Rao ODELL PATIENT MEDICARE (WNR) MEDICARE (M) PART B May 06, 2008 PART B [id number] [facility] [id number] Rao ODELL PATIENT MEDICARE (WNR) MEDICARE (M) PART A May 06, 2008 PART A [id number] Rao ODELL PATIENT MEDICARE (WNR) MEDICARE (M) PART B May 06, 2008 PART B [id number] Rao ODELL PATIENT Selected Encounter This section includes the information on record at [place] for the Encounter. Date/Time Encounter Type Encounter Description Reason Provider Source Dec 12, 2023 09:00 AM MTMS BY PHARM ADDL 15 MIN CLINICAL PHARMACY ICD-10-CM E11.65 Type 2 diabetes mellitus with hyperglycemia ELVIA WONG Encounter Template Text not used by [place] Assessments - Encounter Diagnoses This section includes the primary and secondary diagnoses documented for the Encounter. Date/Time Primary/Secondary Diagnosis Diagnosis Name Provider Source Dec 22, 2023 12:57 PM PRIMARY Type 2 diabetes mellitus with hyperglycemia ELVIA WONG Plan of Treatment: Future Appointments (+ 6 months) and Future Tests (+/- 45 days) The Plan of Treatment section includes future care activities for the patient from all [place] treatmentfacilities. This section includes future appointments and future orders which are active, pending or scheduled. Future Appointments This section includes appointments that were scheduled to occur 6 months from the date of the Encounter, up to a maximum of 20 appointments. The data comes from all [place] treatment facilities. Appointment Date/Time Appointment Type Appointme nt Facility Name Jan 30, 2024 09:00 AM AMBULATORY - [facility]ICINE [facility] Feb 07, 2024 09:30 AM AMBULATORY - MEDICINE [facility] Mar 04, 2024 09:00 AM [facility] Apr 15, 2024 09:00 AM AMBULATORY - MEDICINE [facility] Active, Pending, and Scheduled Orders This section includes a listing of several types of active, pending, and scheduled orders, including clinic medications orders, diagnostic test orders, procedure orders and consult orders; where the start date of the order is 45 days before the date of the Encounter or 45 days after the date of theEncounter. The data comes from all [place] treatment [facility]. Test Date/Time Test Type Test Details Facility Name Dec 08, 2023 12:00 AM Laboratory - Chemi stry Order URINALYSIS URINE [facility] Dec 08, 2023 12:00 AM Laboratory - Chemi stry Order MICROALBUMIN CREATININE RATIO PANEL URINE (RANDOM) [facility] Dec 08, 2023 12:00 AM Laboratory - Chemi stry Order CBC AND DIFF (AUTO) BLOOD (LAV-BLOOD) [facility] Dec 08, 2023 12:00 AM Laboratory - Chemi stry Order HEMOGLOBIN A1C PANEL BLOOD (LAV-BLOOD) [facility] Dec 08, 2023 12:00 AM Laboratory - Chemi stry Order BASIC METABOLIC PANEL (fasting) BLOOD (SST-SERUM) [facility] Dec 08, 2023 12:00 AM Laboratory - Chemi stry Order LIPID PANEL FASTING BLOOD (SST-SERUM) [facility] Dec 08, 2023 12:00 AM Laboratory - Chemi stry Order LIVER FUNCTION BLOOD (SST-SERUM) [facility] Dec 08, 2023 12:00 AM Laboratory - Chemi stry Order CALCIUM BLOOD (SST-SERUM) [facility] Social History: Smoking Status (Most current) and Tobacco Use (All prior to encounter date) This section includes the most current, and the historical, smoking and tobacco- related health factors from the [place] facility where the Encounter took place. Current Smoking Status This section includes the most current smoking, or tobacco-related health factor, from the [place] facility where the Encounter took place. Date/Time Current Smoking Status Comment Facil [facility] Sep 05, 2023 10:00 AM VA-TOBACCO QUIT 15 YRS OR MORE [facility] Tobacco Use History This section includes a history of the smoking, or tobacco-related health factors, that were collected on or before the date of the Encounter. The data comes from the [place] facility where the Encounter took place. Date/Time Smoking Status/Tobacco Use Comment F acility Sep 05, 2023 10:00 AM VA-TOBACCO NEVER USED [place] Sep 05, 2023 10:00 AM VA-TOBACCO QUIT 15 YRS OR MORE [facility] Sep 08, 2022 11:30 AM VA-TOBACCO FORMER USER [facility] Sep 08, 2022 11:30 AM VA-TOBACCO QUIT 15 YRS OR MORE [facility] Jul 08, 2021 09:30 AM VA-TOBACCO FORMER USER [place] Jul 08, 2021 09:30 AM VA-TOBACCO QUIT 15 YRS OR MORE [facility] May 28, 2020 10:04 AM VA-TOBACCO NEVER USED [place] May 29, 2018 09:51 AM VA-TOBACCO FORMER USER [facility] May 29, 2018 09:51 AM VA-TOBACCO QUIT 15 YRS OR MORE [facility] May 29, 2018 09:39 AM LIFETIME NON-TOBACCO USER [facility] May 04, 2017 02:38 PM QUIT TOBACCO USE > 7 YEARS AGO [place] Apr 28, 2016 10:02 AM QUIT TOBACCO USE > 7 YEARS AGO smoked for 4 years about 2 pack a week quit 50 years ago [facility] Aug 20, 2013 09:48 AM QUIT TOBACCO USE > 7 YEARS AGO 22 yo [place] Encounter Notes: All associated encounter notes This section contains the clinical notes associated to the Encounter. Date/Time Encounter Note(s) Provider Source Dec 12, 2023 08:54 AM PHARMACY OUTPATIBRANDON T NOTE: LOCAL TITLE: PHARMACY CLINIC NOTE STANDARD TITLE: PHARMACY OUTPATIENT NOTE DATE OF NOTE: DEC 12, 2023@08:54 ENTRY DATE: DEC 12, 2023@08:55 AUTHOR: ELVIA WONG COSIGNER: URGENCY: STATUS: COMPLETED Known Allergies: Patient has answered NKA MATHEW JADEDelores presented for face to face initial consult for diabetes management treatment. Subjective: [place] referred to pharmacy PACT clinic by PCP for consideration of GLP-1 agonist or SGLT-2 inhibitor. 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 He is followed by non-VA PCP q3 months with last visit at the end of November 2023. Per PCP note, last A1c 6.7% (08/2023) non-VA. He will be repeating non-VA labwork in the next couple weeks. Since last visit, pt notes he had a cold. BG higher during this time, but came back down. He notes he discussed GLP-1 agonist and SGLT-2 inhibitor with non-VA PCP and he didn't seem too impressed . No changes were recommended. PA-F for Chelsie 3 was approved and pt downloaded johnny on phone. Objective: Diabetes Medication Regimen: insulin glargine 30 [...] SMBG 1x/day. FBG ~130-160mg/dL. Last night 140mg/dL. 12/12/23 FBG this AM 142mg/dL; notes usually ~130-150mg/dL Patient eats on avg. 2x day: Diet [...] Non-VA A1c and reported BG at goal. Pt will repeat non-VA labs this week and notify clinic so results can be obtained. Discussed SGLT-2 inhibitor or GLP-1 agonist in setting of CVD/CKD; pt declines again noting that non-VA PCP did not advise switch but he states he will think about it more . Pt interested in CGM. Chelsie 3 approved. Reviewed instructions for use; initial sensor placed. If able to d/c insulin in the future and utilize non-insulin therapies, will d/c Chelsie. Diabetes (Goal A1c<7%, FBG 90-110mg/dL, 2hPP<180mg/dL): - Continue insulin glargine 30 units daily - Continue to SMBG 6x/day with Chelsie - Monitor for s/sx hypoglycemia and contact clinic if BG consistently < 70mg/dL - LSMs encouraged - Repeat A1c: non-VA December 2023; pt will contact clinic when drawn so results can be requested Clinic's Next Scheduled Follow-up: ~8 weeks HTN: Non-VA BP 138/68 at recent PCP visit; notes mostly at goal. No TAMMIE-I/ARB. Defer to PCP. ASCVD: atorvastatin 80mg/day. Microalb: 13.2mg/G (05/2022) History of Preventive Care: Most recent visit to underwriter: none; counseled Most recent visit to optometry: non-VA 02/2023; no DR reported. Time Spent: 35 minutes PBM PharmD Pharmacotherapy Rem V12: PHARMACIST INTERVENTIONS: TYPE 2 DIABETES MELLITUS Medication monitoring, no dosage change required, continue to monitor and assess Medication reconciliation (changes to active VA and non-VA medication lists to reconcile differences) No changes to medication lists made (medication review completed, no discrepancies identified) /celina/ Elvia Wong PharmD Clinical Pharmacy Practitioner Signed: 12/12/2023 10:00 ELVIA WONG
--- OUTSIDE RECORDS SUMMARY | 2024-10-15 16:45 | XMS_ITS | Encounter Summary ---
Author Name [facility] [place] [facility] Address [address] [place] [address] Care Team Providers Care Charge Machine Operator Name Role Phone JUANITA BIRCH Primary [...] Nov 06, 2016 MEDICAR E SUPPLEM E [id number] FRANCISRao MARQUES PATIENT MEDICARE (WNR) MEDICARE () PART A May 06, 2008 PART A [id number] [facility] Rao ODELL PATIENT MEDICARE (WNR) MEDICARE (M) PART B May 06, 2008 PART B [id number] [facility] [phone] Rao ODELL PATIENT MEDICARE (WNR) MEDICARE (M) PART A May 06, 2008 PART A [id number] Rao ODELL PATIENT MEDICARE (WNR) MEDICARE (M) PART B May 06, 2008 PART B [id number] [id number] LAFFERRao Estrella PATIENT Selected Encounter This section includes the information on record at [place] for the Encounter. Date/Time Encounter Type Encounter Description Reason Pro vider Source Jan 31, 2024 02:16 PM Outpatient Encounter ADMIN PAT ACTIVTIES (MASNONCT) [facility] Encounter Template Text not used by [place] Plan of Treatment: Future Appointments (+ 6 months) and Future Tests (+/- 45 days) The Plan of Treatment section includes future care activities for the patient from all [place] treatmentfacilities. This section includes future appointments and future orders which are active, pending or scheduled. Future Appointments This section includes appointments that were scheduled to occur 6 months from the date of the Encounter, up to a maximum of 20 appointments. The data comes from all [facility]. Appointment Date/Time Appointment Type Appointme nt Facility Name Feb 07, 2024 09:30 AM AMBULATORY - MEDICINE [facility] Mar 04, 2024 09:00 AM AMBULATORY - MEDICINE [facility] [place] Apr 15, 2024 09:00 AM AMBULATORY - MEDICINE [facility] Active, Pending, and Scheduled Orders This section includes a listing of several types of active, pending, and scheduled orders, including clinic medications orders, diagnostic test orders, procedure orders and consult orders; where the start date of the order is 45 days before the date of the Encounter or 45 days after the date of theEncounter. The data comes from all [facility]. Test Date/Time Test Type Test Details Facility Name Mar 04, 2024 12:00 AM Laboratory - Chemistry Order HEMOGLOBIN A1C PANEL BLOOD (LAV-BLOOD) [facility] Mar 04, 2024 12:00 AM Laboratory - Chemistry Order CREATININE (eGFR 2020) BLOOD (SST-SERUM) [facility] Encounter Notes: All associated encounter notes This section contains the clinical notes associated to the Encounter. Date/Time Encounter Note(s) Provider Source Jan 31, 2024 02:16 PM ADMINISTRATIVE NOT E: LOCAL TITLE: CCC: SCHEDULING ADMINISTRATION STANDARD TITLE: ADMINISTRATIVE NOTE DATE OF NOTE: JAN 31, 2024@14:16:41 ENTRY DATE: JAN 31, 2024@14:16:41 AUTHOR: DENNIS DUFFY COSIGNER: URGENCY: STATUS: COMPLETED CCC: SCHEDULING ADMINISTRATION Has ADDENDA Patient Demographics Patient Name: MATHEW ODELL Patient Primary Phone: [phone] Patient Primary Address: [address] [place] [id number] Patient : 1945 Patient Age: 78 Call Back Number: [phone] Caller/Recipient Relation to Patient: Self Administrative Administrative Note Reason: Other Administrative Note Comments: [place] is calling and would like to speak with his PACT as well as his Clinical Pharmacist regarding his diabetes monitoring equipment and medication. Please review and return call to . Thank you. /celina/ DENNIS AMRTE [facility] Signed: 01/31/2024 14:16 Receipt Acknowledged By: 01/31/2024 15:29 /celina/ Ophelia Sheldon, KINGSLEY Registered Nurse (RN) 01/31/2024 14:31 /celina/ Elvia Wong PharmD Clinical Pharmacy Practitioner 01/31/2024 ADDENDUM STATUS: COMPLETED Spoke with patient (see add'm to note 01/30/24). /celina/ Elvia Wong PharmD Clinical Pharmacy Practitioner Signed: 01/31/2024 14:32 DENNIS DUFFY [place] [facility]
--- OUTSIDE RECORDS SUMMARY | 2024-10-15 16:45 | XMS_ITS | Encounter Summary ---
Author Name [facility] [facility] [place] [facility] [place] [facility] [place] Address [address] [place] [id number] Care Team Providers Care Free Lance Artist Name Role Phone JUANITA BIRCH Primary Care [...] Policy Bradford [facility] Nov 06, 2016 MEDICAR E SUPPLEM E [id number] Rao ODELL PATIENT MEDICARE (WNR) MEDICARE (M) PART A May 06, 2008 PART A [id number] [facility] Rao ODELL PATIENT MEDICARE (WNR) MEDICARE (M) PART B May 06, 2008 PART B [id number] Rao ODELL PATIENT MEDICARE (WNR) MEDICARE (M) PART A May 06, 2008 PART A [id number] Rao ODELL PATIENT MEDICARE (WNR) MEDICARE (M) PART B May 06, 2008 PART B [id number] [phone] Rao ODELL PATIENT Selected Encounter This section includes the information on record at [place] for the Encounter. Date/Time Encounter Type Encounter Description Reason Pro vider Source Jan 17, 2024 12:00 AM Outpatient Encounter EVENT (HISTORICAL) [facility] Encounter Template Text not used by [place] Plan of Treatment: Future Appointments (+ 6 months) and Future Tests (+/- 45 days) The Plan of Treatment section includes future care activities for the patient from all [place] treatmentfacilities. This section includes future appointments and future orders which are active, pending or scheduled. Future Appointments This section includes appointments that were scheduled to occur 6 months from the date of the Encounter, up to a maximum of 20 appointments. The data comes from all [place] treatment facilities. Appointment Date/Time Appointment Type Appointme nt Facility Name Jan 30, 2024 09:00 AM AMBULATORY - MEDICINE [facility] Feb 07, 2024 09:30 AM AMBULATORY - MEDICINE [facility] Mar 04, 2024 09:00 AM AMBULATORY - MEDICINE [facility] Apr 15, 2024 09:00 AM AMBULATORY - MEDICINE [facility] Active, Pending, and Scheduled Orders This section includes a listing of several types of active, pending, and scheduled orders, including clinic medications orders, diagnostic test orders, procedure orders and consult orders; where the start date of the order is 45 days before the date of the Encounter or 45 days after the date of theEncounter. The data comes from all [facility]. Test Date/Time Test Type Test Details Facility Name Dec 08, 2023 12:00 AM Laboratory - Chemi stry Order MICROALBUMIN CREATININE RATIO PANEL URINE (RANDOM) [facility] Dec 08, 2023 12:00 AM Laboratory - Chemi stry Order URINALYSIS URINE [facility] Dec 08, 2023 12:00 AM Laboratory - Chemi stry Order CBC AND DIFF (AUTO) BLOOD (LAV-BLOOD) [facility] Dec 08, 2023 12:00 AM Laboratory - Chemi stry Order HEMOGLOBIN A1C PANEL BLOOD (LAV-BLOOD) [facility] Dec 08, 2023 12:00 AM Laboratory - Chemi stry Order LIPID PANEL FASTING BLOOD (SST-SERUM) [facility] Dec 08, 2023 12:00 AM Laboratory - Chemi stry Order BASIC METABOLIC PANEL (fasting) BLOOD (SST-SERUM) [facility] Dec 08, 2023 12:00 AM Laboratory - Chemi stry Order LIVER FUNCTION BLOOD ([facility]) [facility] Dec 08, 2023 12:00 AM Laboratory - Chemi stry Order CALCIUM BLOOD ([facility]-SERUM) [facility]
--- OUTSIDE RECORDS SUMMARY | 2024-10-15 16:45 | XMS_ITS | Encounter Summary ---
Author Name [facility] [place] Address [address] [place] [address] Care Team Providers Care Cps Team Lead Name Role Phone JUANITA BIRCH Primary Care [...] Policy Bradford [facility] Nov 06, 2016 MEDICAR E SUPPLEM E [id number] Rao ODELL PATIENT MEDICARE (WNR) MEDICARE () PART A May 06, 2008 PART A [id number] [facility] Rao ODELL PATIENT MEDICARE (WNR) MEDICARE (M) PART B May 06, 2008 PART B [id number] Rao ODELL PATIENT MEDICARE (WNR) MEDICARE (M) PART A May 06, 2008 PART A [id number] Rao ODELL PATIENT MEDICARE (WNR) MEDICARE (M) PART B May 06, 2008 PART B [id number] Rao ODELL PATIENT Selected Encounter This section includes the information on record at [place] for the Encounter. Date/Time Encounter Type Encounter Description Reason Provider Source Dec 13, 2023 02:16 PM Outpatient Encounter TELEPHONE TRIAGE WALDEMAR MCCALLUM Encounter Template Text not used by [place] Plan of Treatment: Future Appointments (+ 6 months) and Future Tests (+/- 45 days) The Plan of Treatment section includes future care activities for the patient from all [place] treatmentfacilities. This section includes future appointments and future orders which are active, pending or scheduled. Future Appointments This section includes appointments that were scheduled to occur 6 months from the date of the Encounter, up to a maximum of 20 appointments. The data comes from all [place] treatment [facility]. Appointment Date/Time Appointment Type Appointme nt Facility Name Jan 30, 2024 09:00 AM AMBULATORY - MEDICINE [facility] Feb 07, 2024 09:30 AM AMBULATORY - MEDICINE [facility] Mar 04, 2024 09:00 AM AMBULATORY - MEDICINE [facility] Apr 15, 2024 09:00 AM AMBULATORY - MEDICINE [facility] Active, Pending, and Scheduled Orders This section includes a listing of several types of active, pending, and scheduled orders, including clinic medications orders, diagnostic test orders, procedure orders and consult orders; where the start date of the order is 45 days before the date of the Encounter or 45 days after the date of theEncounter. The data comes from all [facility]. Test Date/Time Test Type Test Details Facility Name Dec 08, 2023 12:00 AM Laboratory - Chemi stry Order MICROALBUMIN CREATININE RATIO PANEL URINE (RANDOM) [facility] Dec 08, 2023 12:00 AM Laboratory - Chemi stry Order URINALYSIS URINE [facility] Dec 08, 2023 12:00 AM Laboratory - Chemi stry Order CBC AND DIFF (AUTO) BLOOD (LAV-BLOOD) [facility] Dec 08, 2023 12:00 AM Laboratory - Chemi stry Order BASIC METABOLIC PANEL (fasting) BLOOD (SST-SERUM) [facility] Dec 08, 2023 12:00 AM Laboratory - Chemi stry Order HEMOGLOBIN A1C PANEL BLOOD (LAV-BLOOD) [facility] Dec 08, 2023 12:00 AM Laboratory - Chemi stry Order LIPID PANEL FASTING BLOOD (SST-SERUM) [facility] Dec 08, 2023 12:00 AM Laboratory - Chemi stry Order LIVER FUNCTION BLOOD (SST-SERUM) [facility] Dec 08, 2023 12:00 AM Laboratory - Chemi stry Order CALCIUM BLOOD (SST-SERUM) [facility] Encounter Notes: All associated encounter notes This section contains the clinical notes associated to the Encounter. Date/Time Encounter Note(s) Provider Source Dec 13, 2023 03:04 PM ADDENDUM: LOCAL TITLE: Addendum STANDARD TITLE: ADDENDUM DATE OF NOTE: DEC 13, 2023@15:04:26 ENTRY DATE: DEC 13, 2023@15:04:27 AUTHOR: IDA WONG COSIGNER: URGENCY: STATUS: COMPLETED RX changed for mail per pt's request. Pt did not mention this at visit yesterday. He confirmed taking 30 units daily of insulin glargine yesterday; however, informs documentation writer at call that he did that once but changed it back to 28 units. RX updated. Thank you! /celina/ Ida Wong PharmD Clinical Pharmacy Practitioner Signed: 12/13/2023 15:05 Receipt Acknowledged By: 12/13/2023 15:16 /es/ Amira Sheldon RN Registered Nurse (RN) --- Original Document --- 12/13/23 CCC: CLINICAL TRIAGE: Patient Demographics Patient Name: MATHEW ODELL Patient Primary Address: [address] [place] [id number] Patient Primary Phone: [phone] Patient : 1945 Patient Age: 78 Call Back Number: [phone] Caller/Recipient Relation to Patient: Self Emergency Contact: NANETTE CASS Medication Refill/Renewal Request Medications Refill/Renewal Request: [place] calls and states he has 6 days left of Insulin Glargine. States he has been using 28units at (current order is for 25units). [place] states civilian PCP Dr Aldo Westfall at [facility] increased the dose recently. REQUESTING: NEW ORDER GLARGINE W/ UPDATED DOSE ''28 units'' AND CALL BACK TO UPDATE DR.ANDREW CAIN [address] [place] [address] [place] [id number] Rx #[id number] - INSULIN,GLARGINE-YFGN 100UNIT/ML PEN 3ML INJECT 25 UNITS SUBCUTANEOUSLY EVERY EVENING - SAME LANTUS Nursing Plan and Disposition Other course(s) of action Generated msg to PACT/Provider Clinical Contact Center Codes Clinic/Location: V1 [facility] PHONE [facility] RN /celina/ WALDEMAR MCCALLUM Signed: 12/13/2023 14:16 Receipt Acknowledged By: 12/13/2023 15:16 /celina/ Amira Sheldon RN Registered Nurse (RN) * AWAITING SIGNATURE * JEREMIAH RENDON 12/13/2023 ADDENDUM STATUS: COMPLETED seen clinical pharmacist yesterday. Did mention this to you yesterday at his visit? Please advise. /celina/ Amira Sheldon RN Registered Nurse (RN) Signed: 12/13/2023 14:55 Receipt Acknowledged By: 12/13/2023 15:04 /celina/ Ida Wong PharmD Clinical Pharmacy Practitioner IDA WONG [place] [facility] Dec 13, 2023 02:54 PM ADDENDUM: LOCAL TITLE: Addendum STANDARD TITLE: ADDENDUM DATE OF NOTE: DEC 13, 2023@14:54:31 ENTRY DATE: DEC 13, 2023@14:54:33 AUTHOR: AMIRA SHELDON EXP COSIGNER: URGENCY: STATUS: COMPLETED [place] seen clinical pharmacist yesterday. Did mention this to you yesterday at his visit? Please advise. /raul Sheldon RN Registered Nurse (RN) Signed: 12/13/2023 14:55 Receipt Acknowledged By: 12/13/2023 15:04 /raul Wong PharmD Clinical Pharmacy Practitioner --- Original Document --- 12/13/23 CCC: CLINICAL TRIAGE: Patient Demographics Patient Name: MATHEW ODELL Patient Primary Address: [address] [place], [place] [id number] Patient Primary Phone: [phone] Patient : 1945 Patient Age: 78 Call Back Number: [phone] Caller/Recipient Relation to Patient: Self Emergency Contact: NANETTE ODELL Medication Refill/Renewal Request Medications Refill/Renewal Request: calls and states he has 6 days left of Insulin Glargine. States he has been using 28units at (current order is for 25units). [facility] civilian PCP Dr Aldo Westfall at [facility] increased the dose recently. REQUESTING: NEW ORDER GLARGINE W/ UPDATED DOSE ''28 units'' AND CALL BACK TO UPDATE DR.ANDREW CAIN [address] [place] [address] [place], [place] [id number] Rx #[id number] - INSULIN,GLARGINE-YFGN 100UNIT/ML PEN 3ML INJECT 25 UNITS SUBCUTANEOUSLY EVERY EVENING - SAME LANTUS Nursing Plan and Disposition Other course(s) of action Generated msg to PACT/Provider Clinical Contact Center Codes Clinic/Location: [facility] PHONE [facility] RN /celina/ WALDEMAR MCCALLUM Signed: 12/13/2023 14:16 Receipt Acknowledged By: * AWAITING SIGNATURE * AMIRA SHELDON * AWAITING SIGNATURE * JEREMIAH RENDON HOLLY N [facility] Dec 13, 2023 02:16 PM RN PROGRESS NOTE: LOCAL TITLE: CCC: CLINICAL TRIAGE STANDARD TITLE: RN PROGRESS NOTE DATE OF NOTE: DEC 13, 2023@14:16:25 ENTRY DATE: DEC 13, 2023@14:16:25 AUTHOR: WALDEMAR MCCALLUM EXP COSIGNER: URGENCY: STATUS: COMPLETED CCC: CLINICAL TRIAGE Has ADDENDA Patient Demographics Patient Name: MATHEW ODELL Patient Primary Address: [address] [place] [address] Ha Patient Primary Phone: [phone] Patient : 1945 Patient Age: 78 Call Back Number: [phone] Caller/Recipient Relation to Patient: Self Emergency Contact: NANETTE ODELL Medication Refill/Renewal Request Medications Refill/Renewal Request: calls and states he has 6 days left of Insulin Glargine. States he has been using 28units at (current order is for 25units). [facility] civilian PCP Dr Aldo Westfall at [facility] increased the dose recently. REQUESTING: NEW ORDER GLARGINE W/ UPDATED DOSE ''28 units'' AND CALL BACK TO UPDATE DR.ANDREW CAIN [address] [place] [address] [place], [place] [id number] Rx #[id number] - INSULIN,GLARGINE-YFGN 100UNIT/ML PEN 3ML INJECT 25 UNITS SUBCUTANEOUSLY EVERY EVENING - SAME LANTUS Nursing Plan and Disposition Other course(s) of action Generated msg to PACT/Provider Clinical Contact Center Codes Clinic/Location: [facility] PHONE [facility] RN /celina/ WALDEMAR MCCALLUM Signed: 12/13/2023 14:16 Receipt Acknowledged By: 12/13/2023 15:16 /celina/ Amira Sheldon RN Registered Nurse (RN) 12/14/2023 08:28 /celina/ JEREMIAH RENDON LPN LICENSED PRACTICAL NURSE 12/13/2023 ADDENDUM STATUS: COMPLETED [place] seen clinical pharmacist yesterday. Did mention this to you yesterday at his visit? Please advise. /celina/ Amira Sheldon RN Registered Nurse (RN) Signed: 12/13/2023 14:55 Receipt Acknowledged By: 12/13/2023 15:04 /celina/ Ida Wong PharmD Clinical Pharmacy Practitioner 12/13/2023 ADDENDUM STATUS: COMPLETED RX changed for mail per pt's request. Pt did not mention this at visit yesterday. He confirmed taking 30 units daily of insulin glargine yesterday; however, informs documentation writer at call that he did that once but changed it back to 28 units. RX updated. Thank you! /celina/ Ida Wong PharmD Clinical Pharmacy Practitioner Signed: 12/13/2023 15:05 Receipt Acknowledged By: 12/13/2023 15:16 /es/ Amira Sheldon, [place] Registered Nurse (RN) WALDEMAR MCCALLUML [facility]
--- OUTSIDE RECORDS SUMMARY | 2024-10-15 16:45 | XMS_ITS | Encounter Summary ---
Author Name [facility] [place] Organization [place] Address [address] [place] [address] Care Team Providers Care Solution Manager Name Role Phone JUANITA BIRCH Primary Care [...] Bradford's Name Patient's Relationship to Policy Bradford [facility] MEDICARE SUPPLE[facility] [place] IND Nov 06, 2016 MEDICAR E SUPPLEM E [id number] Rao ODELL PATIENT MEDICARE (WNR) MEDICARE (M) PART A May 06, 2008 PART A [id number] [facility] Rao ODELL PATIENT MEDICARE (WNR) MEDICARE (M) PART B May 06, 2008 PART B [id number] [facility] [id number] Rao ODELL PATIENT MEDICARE (WNR) MEDICARE (M) PART A May 06, 2008 PART A [id number] Rao ODELL PATIENT MEDICARE (WNR) MEDICARE (M) PART B May 06, 2008 PART B [id number] Rao ODELL PATIENT Selected Encounter This section includes the information on record at [place] for the Encounter. Date/Time Encounter Type Encounter Description Reason Provider Source Feb 07, 2024 09:30 AM MTMS BY PHARM PULMONARY FELLOW 15 MIN TELEPHONE PRIMARY CARE ICD-10-CM E11.65 Type 2 diabetes mellitus with hyperglycemia ELVIA WONG Darrel Encounter Template Text not used by [place] Assessments - Encounter Diagnoses This section includes the primary and secondary diagnoses documented for the Encounter. Date/Time Primary/Secondary Diagnosis Diagnosis Name Provider Source Feb 07, 2024 09:30 AM PRIMARY Type 2 diabetes mellitus with hyperglycemia ELVIA WONG [facility] Plan of Treatment: Future Appointments (+ 6 months) and Future Tests (+/- 45 days) The Plan of Treatment section includes future care activities for the patient from [facility] [place] [facility]. This section includes future appointments and future orders which are active, pending or scheduled. Future Appointments This section includes appointments that were scheduled to occur 6 months from the date of the Encounter, up to a maximum of 20 appointments. The data comes from all [place] treatment facilities. Appointment Date/Time Appointment Type Appointme nt Facility Name Mar 04, 2024 09:00 AM [facility] Apr 15, 2024 09:00 AM [facility] Active, Pending, and Scheduled Orders This section includes a listing of several types of active, pending, and scheduled orders, including clinic medications orders, diagnostic test orders, procedure orders and consult orders; where the start date of the order is 45 days before the date of the Encounter or 45 days after the date of theEncounter. The data comes from all [place] treatment facilities. Test Date/Time Test Type Test Details Facility Name Mar 04, 2024 12:00 AM Laboratory - Chemistry Order HEMOGLOBIN A1C PANEL BLOOD (LAV-BLOOD) [facility] Mar 04, 2024 12:00 AM Laboratory - Chemistry Order CREATININE (eGFR 2020) BLOOD (SST-SERUM) [facility] Social History: Smoking Status (Most current) and Tobacco Use (All prior to encounter date) This section includes the most current, and the historical, smoking and tobacco- related health factors from the [place] facility where the Encounter took place. Current Smoking Status This section includes the most current smoking, or tobacco-related health factor, from the [place] facility where the Encounter took place. Date/Time Current Smoking Status Comment Facil ity Sep 05, 2023 10:00 AM VA-TOBACCO FORMER USER [facility] Tobacco Use History This section includes a history of the smoking, or tobacco-related health factors, that were collected on or before the date of the Encounter. The data comes from the [place] facility where the Encounter took place. Date/Time Smoking Status/Tobacco Use Comment F acility Sep 05, 2023 10:00 AM VA-TOBACCO NEVER USED [facility] Sep 05, 2023 10:00 AM VA-TOBACCO QUIT 15 YRS OR MORE [facility] Sep 08, 2022 11:30 AM VA-TOBACCO FORMER USER [facility] Sep 08, 2022 11:30 AM VA-TOBACCO QUIT 15 YRS OR MORE [facility] Jul 08, 2021 09:30 AM VA-TOBACCO FORMER USER [facility] Jul 08, 2021 09:30 AM VA-TOBACCO QUIT 15 YRS OR MORE [facility] May 28, 2020 10:04 AM VA-TOBACCO NEVER USED [facility] May 29, 2018 09:51 AM VA-TOBACCO FORMER USER [facility] May 29, 2018 09:51 AM VA-TOBACCO QUIT 15 YRS OR MORE [facility] May 29, 2018 09:39 AM LIFETIME NON-TOBACCO USER [facility] May 04, 2017 02:38 PM QUIT TOBACCO USE > 7 YEARS AGO [facility] Apr 28, 2016 10:02 AM QUIT TOBACCO USE > 7 YEARS AGO smoked for 4 years about 2 pack a week quit 50 years ago [facility] Aug 20, 2013 09:48 AM QUIT TOBACCO USE > 7 YEARS AGO 22 yo [facility] Encounter Notes: All associated encounter notes This section contains the clinical notes associated to the Encounter. Date/Time Encounter Note(s) Provider Source Feb 07, 2024 02:36 PM PHARMACY OUTPATIEN T NOTE: LOCAL TITLE: PHARMACY CLINIC NOTE STANDARD TITLE: PHARMACY OUTPATIENT NOTE DATE OF NOTE: FEB 07, 2024@14:36 ENTRY DATE: FEB 07, 2024@14:36:40 AUTHOR: ELVIA WONG COSIGNER: URGENCY: STATUS: COMPLETED Known Allergies: Patient has answered NKA MATHEW ODELL presented for diabetes management treatment. Subjective: Tanner referred to pharmacy PACT clinic by PCP for consideration of GLP-1 agonist or SGLT-2 inhibitor. 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 He is followed by non-VA PCP q3 months with last visit at the end of November 2023. Received fax from non-VA PCP with RX for emapagliflozin. Pt notes he was seen by pulmonary today who advised him to increase furosemide. He notes he has been using Chelsie without issues. = Prescriber Name: Aldo Westfall MD [address] [place] [address] Dr Evangelista, YOVANI [id number] Medication Name: Jardiance 10 mg tab Take 1 Tab every morning #90 3 Refills = Objective: Diabetes Medication Regimen: insulin glargine 28 units daily (PM) Non-[facility] Labwork: 01/17/24 SCr 1.84mg/dL eGFR 36 A1c 8% Alb/Cre Ratio: 7.4 Patient self-monitoring of blood glucose: At home: X Patient self-monitors blood glucose 1x day and reports the following (mg/dl): 11/07/23 SMBG 1x/day. FBG ~130-160mg/dL. Last night 140mg/dL. 12/12/23 FBG this AM 142mg/dL; notes usually ~130-150mg/dL 01/30/24 Chelsie 3: 7 day avg. 197mg/dL 14 day avg. 204mg/dL 12am-3am 219 3am-6am 154 6am-9am 133 9am-12am 211 12am-3pm 199 3pm-6pm 216 6pm-9pm 240 9pm-12am 266 Low glucose events 0 Time in Target >250mg/dL 17% 181-250mg/dL 43% 70-180 40% 02/07/24 Chelsie 3: 7 day avg. 237mg/dL 12am-3am 196 3am-6am 142 6am-9am 118 9am-12am 164 12am-3pm 185 3pm-6pm 217 6pm-9pm 231 9pm-12am 237 Low glucose events 0 Time in Target >250mg/dL 12% 181-250mg/dL 38% 70-180 50% Patient eats on avg. 2x day: Diet Patterns: B: goes out w/ ; eggs + toast + potato or pancakes L: skips D: varies; leftover stew Snacks: muffin, klondike bar Drinks: water Exercise: limited w/ cold water HYPOGLYCEMIC Events: 0 in the last 2 weeks Hypoglycemia recognition & treatment reviewed: Yes EtOH/Illicit drugs: Alcohol: denies Tobacco: denies Other: Hx CVD Hx TURP 2011 Denies personal or fhx thyroid cancer or MENS2 Denies hx pancreatitis Personal Goals: Asessment/Plan: A1c is currently AT goal of <7-8%. [facility] em[facility]liflozin. MOA, potential ADRs, dosing and administration reviewed. Pt would like to proceed with RX. He will discuss furosemide use with account information clerk; note concern of over-diuresis/dehydration. He will notify clinic of updates/recommendations from pulmonary. Chelsie indicates BG trending up; addition of SGLT-2 inhibitor will help with BG control. Encouraged to continue with LSMs. Will monitor. Diabetes (Goal A1c<7%, FBG 90-110mg/dL, 2hPP<180mg/dL): - Continue insulin glargine 28 units daily - INITIATE empagliflozin 10mg daily (will change to 12.5mg in the future; PCP already issued RX); pt will discuss furosemide with pulmonary - Continue to SMBG 6x/day with Chelsie - Monitor for s/sx hypoglycemia and contact clinic if BG consistently < 70mg/dL - LSMs encouraged - Repeat A1c: April 2024 Clinic's Next Scheduled Follow-up: ~4 weeks (labwork at time of visit if empagliflozin initiated); pt will contact clinic. HTN: Non-VA BP 138/68 at recent PCP visit; notes mostly at goal. No TAMMIE-I/ARB. Defer to PCP. ASCVD: atorvastatin 80mg/day. Microalb: 13.2mg/G (05/2022) History of Preventive Care: Most recent visit to sales market leader: none; counseled Most recent visit to optometry: non-VA 02/2023; no DR reported. Time Spent: 30 minutes PBM PharmD Pharmacotherapy Rem V12: PHARMACIST INTERVENTIONS: CORONARY ARTERY DISEASE Medication Intervention(s) Initiate new medication TYPE 2 DIABETES MELLITUS Medication Intervention(s) Initiate new medication CHRONIC KIDNEY DISEASE Medication Intervention(s) Initiate new medication Medication reconciliation (changes to active VA and non-VA medication lists to reconcile differences) Changes to medication lists made Add or renew medication /es/ Elvia Wong PharmD Clinical Pharmacy Practitioner Signed: 02/07/2024 15:25 ELVIA WONGFIELD
--- OUTSIDE RECORDS SUMMARY | 2024-10-15 16:45 | XMS_ITS | Encounter Summary ---
Author Name [facility] [place] Organization [place] Address [address] [place] [id number] Care Team Providers Care Sales Enablement Manager Name Role Phone JUANITA BIRCH Primary [...] Bradford's Name Patient's Relationship to Policy Bradford [facility] MEDICARE SUPPLEMEN HANS MA IND Nov 06, 2016 MEDICAR E SUPPLEM E [id number] Rao ODELL PATIENT MEDICARE (WNR) MEDICARE (M) PART A May 06, 2008 PART A [id number] [facility] Rao ODELL PATIENT MEDICARE (WNR) MEDICARE (M) PART B May 06, 2008 PART B [id number] [facility] [id number] Rao ODELL PATIENT MEDICARE (WNR) MEDICARE (M) PART A May 06, 2008 PART A [id number] Rao ODELL PATIENT MEDICARE (WNR) MEDICARE (M) PART B May 06, 2008 PART B [id number] Rao ODELL PATIENT Selected Encounter This section includes the information on record at [place] for the Encounter. Date/Time Encounter Type Encounter Description Reason Provider Source Jan 30, 2024 09:00 AM MTMS BY PHARM JB 15 MIN CLINICAL PHARMACY ICD-10-CM E11.65 Type 2 diabetes mellitus with hyperglycemia IDA WONG [place]rel Encounter Template Text not used by [place] Assessments - Encounter Diagnoses This section includes the primary and secondary diagnoses documented for the Encounter. Date/Time Primary/Secondary Diagnosis Diagnosis Name Provider Source Jan 30, 2024 09:34 AM PRIMARY Type 2 diabetes mellitus with hyperglycemia IDA WONG [place] Plan of Treatment: Future Appointments (+ 6 months) and Future Tests (+/- 45 days) The Plan of Treatment section includes future care activities for the patient from [facility] [place] [facility] This section includes future appointments and future orders which are active, pending or scheduled. Future Appointments This section includes appointments that were scheduled to occur 6 months from the date of the Encounter, up to a maximum of 20 appointments. The data comes from all [place] treatment [facility]. Appointment Date/Time Appointment Type Appointme nt Facility Name Feb 07, 2024 09:30 AM AMBULATORY - MEDICINE [facility] Mar 04, 2024 09:00 AM [facility] Apr 15, 2024 09:00 AM AM[facility]ULATORY [facility] Active, Pending, and Scheduled Orders This section includes a listing of several types of active, pending, and scheduled orders, including clinic medications orders, diagnostic test orders, procedure orders and consult orders; where the start date of the order is 45 days before the date of the Encounter or 45 days after the date of theEncounter. The data comes from all [facility]. Test Date/Time Test Type Test Details Facility Name Mar 04, 2024 12:00 AM Laboratory - Chemistry Order HEMOGLOBIN A1C PANEL BLOOD (LAV-BLOOD) [facility] Mar 04, 2024 12:00 AM Laboratory - Chemistry Order CREATININE (eGFR 2020) BLOOD (SST-SERUM) [facility] Social History: Smoking Status (Most current) and Tobacco Use (All prior to encounter date) This section includes the most current, and the historical, smoking and tobacco- related health factors from the [place] facility where the Encounter took place. Current Smoking Status This section includes the most current smoking, or tobacco-related health factor, from the [facility] where the Encounter took place. Date/Time Current Smoking Status Comment Buddy ity Sep 05, 2023 10:00 AM VA-TOBACCO FORMER USER [place] Tobacco Use History This section includes a history of the smoking, or tobacco-related health factors, that were collected on or before the date of the Encounter. The data comes from the [place] facility where the Encounter took place. Date/Time Smoking Status/Tobacco Use Comment F acility Sep 05, 2023 10:00 AM VA-TOBACCO NEVER USED [place] Sep 05, 2023 10:00 AM VA-TOBACCO QUIT 15 YRS OR MORE [place] Sep 08, 2022 11:30 AM VA-TOBACCO FORMER USER [place] Sep 08, 2022 11:30 AM VA-TOBACCO QUIT 15 YRS OR MORE [place] Jul 08, 2021 09:30 AM VA-TOBACCO FORMER USER [place] Jul 08, 2021 09:30 AM VA-TOBACCO QUIT 15 YRS OR MORE [place] May 28, 2020 10:04 AM VA-TOBACCO NEVER USED [place] May 29, 2018 09:51 AM VA-TOBACCO FORMER USER [place] May 29, 2018 09:51 AM VA-TOBACCO QUIT 15 YRS OR MORE [place] May 29, 2018 09:39 AM LIFETIME NON-TOBACCO USER [place] May 04, 2017 02:38 PM QUIT TOBACCO USE > 7 YEARS AGO [place] Apr 28, 2016 10:02 AM QUIT TOBACCO USE > 7 YEARS AGO smoked for 4 years about 2 pack a week quit 50 years ago [place] Aug 20, 2013 09:48 AM QUIT TOBACCO USE > 7 YEARS AGO 22 yo [place] Encounter Notes: All associated encounter notes This section contains the clinical notes associated to the Encounter. Date/Time Encounter Note(s) Provider Source Jan 31, 2024 01:58 PM ADDENDUM: LOCAL TITLE: Addendum STANDARD TITLE: ADDENDUM DATE OF NOTE: JAN 31, 2024@13:58:59 ENTRY DATE: JAN 31, 2024@13:59:01 AUTHOR: IDA WONG EXP COSIGNER: URGENCY: STATUS: COMPLETED Pt reports taht Dr. Aldo Westfall recommends empagliflozin and will fax RX to the [place]. Will ask [facility] to please obtain visit records from Dr. Aldo Westfall [phone]. Will f/u with pt on the telephone next week to discuss further. Thank you! /celina/ Ida Wong PharmD Clinical Pharmacy Practitioner Signed: 01/31/2024 14:03 Receipt Acknowledged By: 02/05/2024 11:51 /celina/ TY WU Advanced Commercial Property Administrator == --- Original Document --- 01/30/24 PHARMACY CLINIC NOTE: Known Allergies: Patient has answered NKA MATHEW ODELL presented for diabetes management treatment. Subjective: [place] referred to pharmacy PACT clinic by PCP for consideration of GLP-1 agonist or SGLT-2 inhibitor. 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 He is followed by non-VA PCP q3 months with last visit at the end of November 2023. At time of last visit, Chelsie 3 was started. Pt notes he is doing well and denies any ADRs or questions/concerns. Notes he had a non-VA A1c drawn 01/2024 and it was 8%. He is seeing non-VA PCP tomorrow and would like to discuss GLP-1 agonist at that time. He is concerned about the cost of it. He notes that evening BG does trend high at times d/t snack -- leftover muffin, klondike bar or yogurt. Objective: Diabetes Medication Regimen: insulin glargine 28 units daily (PM) Non-VA Labwork: 01/17/24 SCr 1.84mg/dL A1c 8% Patient self-monitoring of blood glucose: At home: [...] Target >250mg/dL 17% 181-250mg/dL 43% 70-180 40% Patient eats on avg. 2x day: Diet [...] currently AT goal of <7-8%. Non-VA A1c increased but at goal. Chelsie indicates morning BG at goal while trending higher in the evening; pt attributes to dietary considerations. Counseled. No changes for now but given hx CVD/CKD, would benefit from GLP-1 agonist. Pt will review with non-VA PCP tomorrow. He is 100% SC and has no copays; reviewed this and pt is interested in transferring RXs to [facility]. He will work on obtaining records for PCP to review. Will avoid SGLT-2 inhibitor given hx TURP and urinary concerns. Pt will contact clinic if non-VA PCP recommends GLP-1 agonist. If so, will place PA-F consult at that time. Diabetes (Goal A1c<7%, FBG 90-110mg/dL, 2hPP<180mg/dL): - Continue insulin glargine 28 units daily - Continue to SMBG 6x/day with Chelsie - Monitor for s/sx hypoglycemia and contact clinic if BG consistently < 70mg/dL - LSMs encouraged - Repeat A1c: April 2024 Clinic's Next Scheduled Follow-up: ~4 weeks HTN: Non-VA BP 138/68 at recent PCP visit; notes mostly at goal. No TAMMIE-I/ARB. Defer to PCP. ASCVD: atorvastatin 80mg/day. Microalb: 13.2mg/G (05/2022) History of Preventive Care: Most recent visit to product test engineer: none; counseled Most recent visit to optometry: non-VA 02/2023; no DR reported. Time Spent: 30 minutes PBM PharmD Pharmacotherapy Rem V12: PHARMACIST INTERVENTIONS: TYPE 2 DIABETES MELLITUS Medication monitoring, no dosage change required, continue to monitor and assess Care coordination Medication reconciliation (changes to active VA and non-VA medication lists to reconcile differences) No changes to medication lists made (medication review completed, no discrepancies identified) /celina/ Ida Wong PharmD Clinical Pharmacy Practitioner Signed: 01/30/2024 09:34 01/30/2024 ADDENDUM STATUS: COMPLETED 01/17/24: eGFR 36 Alb/Cre Ratio: 7.4 /celina/ Ida Wong PharmD Clinical Pharmacy Practitioner Signed: 01/30/2024 14:22 01/31/2024 ADDENDUM STATUS: COMPLETED Progress note requested /celina/ TY WU Advanced Commercial Property Administrator Signed: 01/31/2024 15:25 IDA WONG Jan 30, 2024 08:52 AM PHARMACY OUTPATIEN T NOTE: LOCAL TITLE: PHARMACY CLINIC NOTE STANDARD TITLE: PHARMACY OUTPATIENT NOTE DATE OF NOTE: JAN 30, 2024@08:52 ENTRY DATE: JAN 30, 2024@08:52:06 AUTHOR: IDA WONG COSIGNER: URGENCY: STATUS: COMPLETED PHARMACY CLINIC NOTE Has ADDENDA Known Allergies: Patient has answered NKA MATHEW ODELL presented for diabetes management treatment. Subjective: [place] referred to pharmacy PACT clinic by PCP for consideration of GLP-1 agonist or SGLT-2 inhibitor. 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 He is followed by non-VA PCP q3 months with last visit at the end of November 2023. At time of last visit, Chelsie 3 was started. Pt notes he is doing well and denies any ADRs or questions/concerns. Notes he had a non-VA A1c drawn 01/2024 and it was 8%. He is seeing non-VA PCP tomorrow and would like to discuss GLP-1 agonist at that time. He is concerned about the cost of it. He notes that evening BG does trend high at times d/t snack -- leftover muffin, klondike bar or yogurt. Objective: Diabetes Medication Regimen: insulin glargine 28 units daily (PM) Non-VA Labwork: 01/17/24 SCr 1.84mg/dL A1c 8% Patient self-monitoring of blood glucose: At home: [...] Target >250mg/dL 17% 181-250mg/dL 43% 70-180 40% Patient eats on avg. 2x day: Diet [...] currently AT goal of <7-8%. Non-VA A1c increased but at goal. Chelsie indicates morning BG at goal while trending higher in the evening; pt attributes to dietary considerations. Counseled. No changes for now but given hx CVD/CKD, would benefit from GLP-1 agonist. Pt will review with non-VA PCP tomorrow. He is 100% SC and has no copays; reviewed this and pt is interested in transferring RXs to [facility]. He will work on obtaining records for PCP to review. Will avoid SGLT-2 inhibitor given hx TURP and urinary concerns. Pt will contact clinic if non-VA PCP recommends GLP-1 agonist. If so, will place PA-F consult at that time. Diabetes (Goal A1c<7%, FBG 90-110mg/dL, 2hPP<180mg/dL): - Continue insulin glargine 28 units daily - Continue to SMBG 6x/day with Chelsie - Monitor for s/sx hypoglycemia and contact clinic if BG consistently < 70mg/dL - LSMs encouraged - Repeat A1c: April 2024 Clinic's Next Scheduled Follow-up: ~4 weeks HTN: Non-VA BP 138/68 at recent PCP visit; notes mostly at goal. No TAMMIE-I/ARB. Defer to PCP. ASCVD: atorvastatin 80mg/day. Microalb: 13.2mg/G (05/2022) History of Preventive Care: Most recent visit to product test engineer: none; counseled Most recent visit to optometry: non-VA 02/2023; no DR reported. Time Spent: 30 minutes PBM PharmD Pharmacotherapy Rem V12: PHARMACIST INTERVENTIONS: TYPE 2 DIABETES MELLITUS Medication monitoring, no dosage change required, continue to monitor and assess Care coordination Medication reconciliation (changes to active VA and non-VA medication lists to reconcile differences) No changes to medication lists made (medication review completed, no discrepancies identified) /es/ Dia H. Marvin, PharmD Clinical Pharmacy Practitioner Signed: 01/30/2024 09:34 01/30/2024 ADDENDUM STATUS: COMPLETED 01/17/24: eGFR 36 Alb/Cre Ratio: 7.4 /raul Wong PharmD Clinical Pharmacy Practitioner Signed: 01/30/2024 14:22 01/31/2024 ADDENDUM STATUS: COMPLETED Pt reports taht Dr. Aldo Westfall recommends empagliflozin and [facility]. Will ask [facility] to please obtain visit records from Dr. Aldo Westfall . Will f/u with pt on the telephone next week to discuss further. Thank you! /raul Wong PharmD Clinical Pharmacy Practitioner Signed: 01/31/2024 14:03 Receipt Acknowledged By: 02/05/2024 11:51 /raul WU Advanced Commercial Property Administrator 01/31/2024 ADDENDUM STATUS: COMPLETED Progress note requested /raul WU Advanced Commercial Property Administrator Signed: 01/31/2024 15:25 02/05/2024 ADDENDUM STATUS: COMPLETED Pt has doctors appt in AM; requesting call in afternoon. /raul Wong PharmD Clinical Pharmacy Practitioner Signed: 02/05/2024 15:39 IDA WONG
--- OUTSIDE RECORDS SUMMARY | 2024-10-15 16:45 | XMS_ITS | Encounter Summary ---
Author Name [facility] [place] Organization [place] Address [address] [place] [address] Care Team Providers Care Structural Steel Erection Supervisor Name Role Phone JUANITA BIRCH Primary Care [...] Policy Bradford [facility] MEDIC[facility] IND Nov 06, 2016 MEDICAR E SUPPLEM E [id number] Rao ODELL PATIENT MEDICARE (WNR) MEDICARE (M) PART A May 06, 2008 PART A [id number] [facility] Rao ODELL PATIENT MEDICARE (WNR) MEDICARE (M) PART B May 06, 2008 PART B [id number] Rao ODELL PATIENT MEDICARE (WNR) MEDICARE (M) PART A May 06, 2008 PART A [id number] Rao ODELL PATIENT MEDICARE (WNR) MEDICARE (M) PART B May 06, 2008 PART B [id number] Rao ODELL PATIENT Selected Encounter This section includes the information on record at [place] for the Encounter. Date/Time Encounter Type Encounter Description Reason Pro vider Source Jan 31, 2024 12:00 AM Outpatient Encounter EVENT (HISTORICAL) IHE Encounter Template Text not used by [place] Plan of Treatment: Future Appointments (+ 6 months) and Future Tests (+/- 45 days) The Plan of Treatment section includes future care activities for the patient from all [place] treatmentfacilities. This section includes future appointments and future orders which are active, pending or scheduled. Future Appointments This section includes appointments that were scheduled to occur 6 months from the date of the Encounter, up to a maximum of 20 appointments. The data comes from all [place] treatment facilities. Appointment Date/Time Appointment Type Appointme nt Facility Name Feb 07, 2024 09:30 AM AMBULATORY - MEDICINE [facility] Mar 04, 2024 09:00 AM [facility] Apr 15, 2024 09:00 AM AMBULATORY - MEDICINE [facility] Active, Pending, and Scheduled Orders This section includes a listing of several types of active, pending, and scheduled orders, including clinic medications orders, diagnostic test orders, procedure orders and consult orders; where the start date of the order is 45 days before the date of the Encounter or 45 days after the date of theEncounter. The data comes from all [place] treatment [facility]. Test Date/Time Test Type Test Details Facility Name Mar 04, 2024 12:00 AM Laboratory - Chemistry Order HEMOGLOBIN A1C PANEL BLOOD (LAV-BLOOD) [facility] Mar 04, 2024 12:00 AM Laboratory - Chemistry Order CREATININE (eGFR 2020) BLOOD (SST-SERUM) [facility]
--- OUTSIDE RECORDS SUMMARY | 2024-10-15 16:46 | XMS_ITS | Encounter Summary ---
Author Name [facility] [place] Organization [place] Address [address] [place] [address] Care Team Providers Care Payroll Tax Analyst Name Role Phone JUANITA BIRCH Primary Care [...] Bradford's Name Patient's Relationship to Policy Bradford [facility] MEDICARE SUPPLEMEN HANS MA IND Nov 06, 2016 MEDICAR E SUPPLEM E [id number] Rao ODELL PATIENT MEDICARE (WNR) MEDICARE (M) PART A May 06, 2008 PART A [id number] [facility] [id number] Rao ODELL PATIENT MEDICARE (WNR) MEDICARE (M) PART B May 06, 2008 PART B [id number] [facility] [id number] Rao ODELL PATIENT MEDICARE (WNR) MEDICARE (M) PART A May 06, 2008 PART A [id number] Rao ODELL PATIENT MEDICARE (WNR) MEDICARE (M) PART B May 06, 2008 PART B [id number] Rao ODELL PATIENT Selected Encounter This section includes the information on record at [place] for the Encounter. Date/Time Encounter Type Encounter Description Reason Provider Source Mar 04, 2024 09:00 AM MTMS BY PHARM JB 15 MIN CLINICAL PHARMACY ICD-10-CM E11.65 Type 2 diabetes mellitus with hyperglycemia ELVIA WONG Darrel Encounter Template Text not used by [place] Assessments - Encounter Diagnoses This section includes the primary and secondary diagnoses documented for the Encounter. Date/Time Primary/Secondary Diagnosis Diagnosis Name Provider Source Mar 04, 2024 09:23 AM PRIMARY Type 2 diabetes mellitus with hyperglycemia ELVIA WONG [place] Plan of Treatment: Future Appointments (+ 6 months) and Future Tests (+/- 45 days) The Plan of Treatment section includes future care activities for the patient [facility] [place] [facility] This section includes future appointments and future orders which are active, pending or scheduled. Future Appointments This section includes appointments that were scheduled to occur 6 months from the date of the Encounter, up to a maximum of 20 appointments. The data comes from all [place] treatment facilities. Appointment Date/Time Appointment Type Appointme nt Facility Name Apr 15, 2024 09:00 AM [facility] Sep 03, 2024 10:00 AM AMBULATORY - MEDICINE [facility] Active, [...] of theEncounter. The data comes from all [place] treatment facilities. Test Date/Time Test Type Test Details Facility Name Mar 04, 2024 12:00 AM Laboratory - Chemistry Order HEMOGLOBIN A1C PANEL BLOOD (LAV-BLOOD) [facility] Mar 04, 2024 12:00 AM Laboratory - Chemistry Order CREATININE (eGFR 2020) BLOOD (SST-SERUM) [facility] Social History: Smoking Status (Most current) and Tobacco Use (All prior to encounter date) This section includes the most current, and the historical, smoking and tobacco- related health factors from the [place] facility where the Encounter took place. Current Smoking Status This section includes the most current smoking, or tobacco-related health factor, from the [place] facility where the Encounter took place. Date/Time Current Smoking Status Comment Facil ity Sep 05, 2023 10:00 AM VA-TOBACCO QUIT 15 YRS OR MORE [place] Tobacco Use History This section includes a history of the smoking, or tobacco-related health factors, that were collected on or before the date of the Encounter. The data comes from the [place] facility where the Encounter took place. Date/Time Smoking Status/Tobacco Use Comment [place] Sep 05, 2023 10:00 AM VA-TOBACCO NEVER USED [place] Sep 05, 2023 10:00 AM VA-TOBACCO QUIT 15 YRS OR MORE [place] Sep 08, 2022 11:30 AM VA-TOBACCO FORMER USER [place] Sep 08, 2022 11:30 AM VA-TOBACCO QUIT 15 YRS OR MORE [place] Jul 08, 2021 09:30 AM VA-TOBACCO FORMER USER [place] Jul 08, 2021 09:30 AM VA-TOBACCO QUIT 15 YRS OR MORE [place] May 28, 2020 10:04 AM VA-TOBACCO NEVER USED [place] May 29, 2018 09:51 AM VA-TOBACCO FORMER USER [place] May 29, 2018 09:51 AM VA-TOBACCO QUIT 15 YRS OR MORE [place] May 29, 2018 09:39 AM LIFETIME NON-TOBACCO USER [place] May 04, 2017 02:38 PM QUIT TOBACCO USE > 7 YEARS AGO [place] Apr 28, 2016 10:02 AM QUIT TOBACCO USE > 7 YEARS AGO smoked for 4 years about 2 pack a week quit 50 years ago [place] Aug 20, 2013 09:48 AM QUIT TOBACCO USE > 7 YEARS AGO 22 yo [place] Encounter Notes: All associated encounter notes This section contains the clinical notes associated to the Encounter. Date/Time Encounter Note(s) Provider Source Mar 04, 2024 08:56 AM PHARMACY OUTPATIEN T NOTE: LOCAL TITLE: PHARMACY CLINIC NOTE STANDARD TITLE: PHARMACY OUTPATIENT NOTE DATE OF NOTE: MAR 04, 2024@08:56 ENTRY DATE: MAR 04, 2024@08:56:13 AUTHOR: ELVIA WONG COSIGNER: URGENCY: STATUS: COMPLETED PHARMACY CLINIC NOTE Has ADDENDA Known Allergies: Patient has answered NKA MATHEW JADET presented for diabetes management treatment. Subjective: [place] referred to pharmacy PACT clinic by PCP for consideration of GLP-1 agonist or SGLT-2 inhibitor. 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 He is followed by non-VA PCP q3 months with last visit at the end of November 2023. Next f/u March 2024. At time of last visit, empagliflozin was started; non-VA PCP preference vs. GLP- 1 agonist. Pt notes he took it for 1.5 weeks and felt off . Lightheaded, dizzy, etc. He stopped taking and has been feeling better since. Note pt is also on furosemide with tiration by pulmonary for asbestosis. Continues using Chelsie 3 without issues; note BG trending up though. Objective: Diabetes Medication Regimen: insulin glargine 28 units daily (PM) Previous DM Medication(s): empagliflozin (d/c'd d/t lightheadedness) Non-VA Labwork: 01/17/24 SCr 1.84mg/dL eGFR 36 [...] Target >250mg/dL 12% 181-250mg/dL 38% 70-180 50% 03/04/24 Chelsie 3: 7 day avg. 220mg/dL 12am-3am 240 3am-6am 180 6am-9am 161 9am-12am 234 12am-3pm 218 3pm-6pm 222 6pm-9pm 240 9pm-12am 280 Low glucose events 0 Time in Target >250mg/dL 26% 181-250mg/dL 48% 70-180 26% Patient eats on avg. 2x day: Diet [...] A1c is currently AT goal of <7-8%. Chelsie indicates avg. BG improved but trending >200mg/dL still with exception of 3am-9am. Discussed factors that may contribute to this. LSMs reviewed. As noted above, pt d/c'd empagliflozin d/t ADRs which resolved upon d/c. He has hx CVD; would benefit from GLP-1 agonist which may also allow for reduction to insulin. Denies any personal or fhx thyroid cancer or MENS2. Denies hx pancreatitis. Notes he had optometry exam last week and no DR. GALEANO, potential ADRs and dosing/adminsitration reviewed. If approved, will mail RX. Pt to contact clinic if BG trending <100mg/dL; reduction to insulin may be needed in the future. Will monitor. Diabetes (Goal A1c<7%, FBG 90-110mg/dL, 2hPP<180mg/dL): - Continue insulin glargine 28 units daily - PA-F consult semaglutide 0.25mg once weekly x 4 weeks then 0.5mg once weekly - Continue to SMBG 6x/day with Chelsie - Monitor for s/sx hypoglycemia and contact clinic if BG consistently < 70mg/dL - LSMs encouraged - Repeat A1c: March 2024 -- non-VA, will bring results to clinic Clinic's Next Scheduled Follow-up: ~5 weeks HTN: Non-VA BP 138/68 at recent PCP visit; notes mostly at goal. No TAMMIE-I/ARB. Defer to PCP. ASCVD: atorvastatin 80mg/day. Microalb: 13.2mg/G (05/2022) History of Preventive Care: Most recent visit to dozer operator: none; counseled Most recent visit to optometry: non-VA 02/2024; states no He was told it looks fantastic, no issues at all . Time Spent: 30 minutes PBM PharmD Pharmacotherapy Rem V12: PHARMACIST INTERVENTIONS: CORONARY ARTERY DISEASE Medication Intervention(s) Initiate new medication TYPE 2 DIABETES MELLITUS Medication Intervention(s) Initiate new medication Medication reconciliation (changes to active VA and non-VA medication lists to reconcile differences) Changes to medication lists made Add or renew medication /celina/ Elvia Wong PharmD Clinical Pharmacy Practitioner Signed: 03/04/2024 09:23 04/05/2024 ADDENDUM STATUS: COMPLETED Pt reports since starting semaglutide he has had weakness/dizziness/fogginess. No hypoglycemia or BG <70mg/dL when this occurs. Will d/c'd semaglutide. Continue insulin glargine and monitor. /celina/ Elvia Wong PharmD Clinical Pharmacy Practitioner Signed: 04/05/2024 13:56 ELVIA WONG [place]
--- OUTSIDE RECORDS SUMMARY | 2024-10-15 16:48 | XMS_ITS | Encounter Summary ---
Author Name [facility] Organization [facility] [place] Address [address] [place] [id number] Care Team Providers Care Director Executive Communications Name Role Phone JUANITA BIRCH Primary Care [...] Policy [place] [facility] Nov 06, 2016 MEDICAR E SUPPLEM E [id number] Rao ODELL PATIENT MEDICARE (WNR) MEDICARE (M) PART A May 06, 2008 PART A [id number] [facility] Rao ODELL PATIENT MEDICARE (WNR) MEDICARE (M) PART B May 06, 2008 PART B [id number] Rao ODELL PATIENT MEDICARE (WNR) MEDICARE (M) PART A May 06, 2008 PART A [id number] Rao ODELL PATIENT MEDICARE (WNR) MEDICARE (M) PART B May 06, 2008 PART B [id number] CASSRao ICHAEL PATIENT Selected Encounter This section includes the information on record at [place] for the Encounter. Date/Time Encounter Type Encounter Description Reason Provider Source Dec 11, 2023 10:34 AM Outpatient Encounter PROSTHETICS/ORTHOTIC JUANITA ORLANDO Encounter Template Text not used by [place] Plan of Treatment: Future Appointments (+ 6 months) and Future Tests (+/- 45 days) The Plan of Treatment section includes future care activities for the patient from all [place] treatmentfacilities. This section includes future appointments and future orders which are active, pending or scheduled. Future Appointments This section includes appointments that were scheduled to occur 6 months from the date of the Encounter, up to a maximum of 20 appointments. The data comes from all [place] treatment facilities. Appointment Date/Time Appointment Type Appointme nt Facility Name Dec 12, 2023 09:00 AM AMBULATORY - [facility]INE [facility] Jan 30, 2024 09:00 AM AMBULATORY - MEDICINE [facility] Feb 07, 2024 09:30 AM AMBULATORY - MEDICINE [facility] Mar 04, 2024 09:00 AM AMBULATORY - MEDICINE [facility] Apr 15, 2024 09:00 AM AMBULATORY - MEDICINE [facility] Active, Pending, and Scheduled Orders This section includes a listing of several types of active, pending, and scheduled orders, including clinic medications orders, diagnostic test orders, procedure orders and consult orders; where the start date of the order is 45 days before the date of the Encounter or 45 days after the date of theEncounter. The data comes from all [facility]. Test Date/Time Test Type Test Details Facility Name Dec 08, 2023 12:00 AM Laboratory - Chemi stry Order URINALYSIS URINE [facility] Dec 08, 2023 12:00 AM Laboratory - Chemi stry Order MICROALBUMIN CREATININE RATIO PANEL URINE (RANDOM) [facility] Dec 08, 2023 12:00 AM Laboratory - Chemi stry Order CBC AND DIFF (AUTO) BLOOD (LAV-BLOOD) [facility] Dec 08, 2023 12:00 AM Laboratory - Chemi stry Order HEMOGLOBIN A1C PANEL BLOOD (LAV-BLOOD) [facility] Dec 08, 2023 12:00 AM Laboratory - Chemi stry Order BASIC METABOLIC PANEL (fasting) BLOOD (SST-SERUM) [facility] Dec 08, 2023 12:00 AM Laboratory - Chemi stry Order LIPID PANEL FASTING BLOOD (SST-SERUM) [facility] Dec 08, 2023 12:00 AM Laboratory - Chemi awilda Order LIVER FUNCTION BLOOD ([facility]-SERUM) [facility] Dec 08, 2023 12:00 AM Laboratory - Chemi awilda Order CALCIUM BLOOD ([facility]-SERUM) [facility]
--- OUTSIDE RECORDS SUMMARY | 2024-10-15 16:48 | XMS_ITS ---
Author Name [facility] Address [address] [place] [address] Care Team Providers Care Functional Support Analyst Name Role Phone JUANITA BIRCH Primary [...] Nov 06, 2016 MEDICAR E SUPPLEM E [id number] FRANCISRao MARQUES PATIENT MEDICARE (WNR) MEDICARE () PART A May 06, 2008 PART A [id number] [facility] Rao ODELL PATIENT MEDICARE (WNR) MEDICARE (M) PART B May 06, 2008 PART B [id number] [facility] Rao ODELL PATIENT MEDICARE (WNR) MEDICARE (M) PART A May 06, 2008 PART A [id number] [phone] Rao ODELL PATIENT MEDICARE (WNR) MEDICARE (M) PART B May 06, 2008 PART B [id number] [phone] LAFFERRao Estrella PATIENT Selected Encounter This section includes the information on record at [place] for the Encounter. Date/Time Encounter Type Encounter Description Reason Pro vider Source April 05, 2024 11:37 AM Outpatient Encounter ADMIN PAT ACTIVTIES (LUIS ENRIQUENONCT) [facility] Encounter Template Text not used by [place] Plan of Treatment: Future Appointments (+ 6 months) and Future Tests (+/- 45 days) The Plan of Treatment section includes future care activities for the patient from all [place] treatmentfacilities. This section includes future appointments and future orders which are active, pending or scheduled. Future Appointments This section includes appointments that were scheduled to occur 6 months from the date of the Encounter, up to a maximum of 20 appointments. The data comes from all [place] treatment facilities. Appointment Date/Time Appointment Type Appointme nt Facility Name Apr 15, 2024 09:00 AM [facility] Sep 03, 2024 10:00 AM [facility] Active, Pending, and Scheduled Orders This section includes a listing of several types of active, pending, and scheduled orders, including clinic medications orders, diagnostic test orders, procedure orders and consult orders; where the start date of the order is 45 days before the date of the Encounter or 45 days after the date of theEncounter. The data comes from all [place] treatment facilities. Test Date/Time Test Type Test Details Facility Name Mar 04, 2024 12:00 AM Laboratory - Chemistry Order HEMOGLOBIN A1C PANEL BLOOD (LAV-BLOOD) [facility] Mar 04, 2024 12:00 AM Laboratory - Chemistry Order CREATININE (eGFR 2020) BLOOD (SST-SERUM) [facility] Encounter Notes: All associated encounter notes This section contains the clinical notes associated to the Encounter. Date/Time Encounter Note(s) Provider Source April 05, 2024 11:38 AM ADMINISTRATIVE NOTE: LOCAL TITLE: CCC: SCHEDULING ADMINISTRATION STANDARD TITLE: ADMINISTRATIVE NOTE DATE OF NOTE: APRIL 05, 2024@11:38:03 ENTRY DATE: APRIL 05, 2024@11:38:03 AUTHOR: STEVIE BARONE COSIGNER: URGENCY: STATUS: COMPLETED CCC: SCHEDULING ADMINISTRATION Has ADDENDA Patient Demographics Patient Name: MATHEW ODELL Patient Primary Phone: [phone] Patient Primary [address]: [address] [place] [id number] Patient : 1945 Patient Age: 78 Call Back Number: [phone] Caller/Recipient Relation to Patient: Self Scheduling Patient Expects Callback: Yes Administrative Administrative Note Reason: Other Administrative Note Comments: called to inform PACT Team Clinical Pharmacist that he did not tolerate the medication he had been trialing. [place] would like to know what his options are now and what he needs to do next. Please call back at [phone], if no answer please leave a detailed message as it is a secure voicemail. /celina/ STEVIE BARONE [facility] Signed: 04/05/2024 11:38 Receipt Acknowledged By: 04/05/2024 13:01 /celina/ Ophelia Sheldon, K[place]LEY Registered Nurse (RN) 04/05/2024 13:53 /celina/ Elvia Wong PharmD Clinical Pharmacy Practitioner 04/05/2024 ADDENDUM STATUS: COMPLETED Spoke w/ pt. /celina/ Elvia Wong PharmD Clinical Pharmacy Practitioner Signed: 04/05/2024 13:57 STEVIE BARONE [place] [facility] [facility]
--- OUTSIDE RECORDS SUMMARY | 2024-10-15 16:49 | XMS_ITS | Encounter Summary ---
Author Name [facility] [place] [place] Organization [facility] [place] Address [address] [place] [id number] Care Team Providers Care Stock And Station Agent Name Role Phone JUANITA BIRCH Primary Care [...] Bradford's Name Patient's Relationship to Policy Bradford [facility] MEDICARE SUPPLEMEN HANS MA IND Nov 06, 2016 MEDICAR E SUPPLEM E [id number] Rao ODELL PATIENT MEDICARE (WNR) MEDICARE (M) PART A May 06, 2008 PART A [id number] [facility] Rao ODELL PATIENT MEDICARE (WNR) MEDICARE (M) PART B May 06, 2008 PART B [id number] [facility] [phone] Rao ODELL PATIENT MEDICARE (WNR) MEDICARE (M) PART A May 06, 2008 PART A [id number] Rao ODELL PATIENT MEDICARE (WNR) MEDICARE (M) PART B May 06, 2008 PART B [id number] Rao ODELL PATIENT Selected Encounter This section includes the information on record at [place] for the Encounter. Date/Time Encounter Type Encounter Description Reason Provider Source Sep 03, 2024 10:00 AM OFFICE O/P EST MOD 30 MIN PRIMARY CARE/MEDICINE ICD-10-CM I73.9 Peripheral vascular disease, unspecified JUANITA BIRCH Darrel Encounter Template Text not used by [place] Assessments - Encounter Diagnoses This section includes the primary and secondary diagnoses documented for the Encounter. Date/Time Primary/Secondary Diagnosis Diagnosis Name Provider Source Sep 17, 2024 12:52 PM PRIMARY Peripheral vascular disease, unspecified JUANITA BIRCH [facility] Sep 17, 2024 12:52 PM SECONDARY Athscl heart disease of [place] coronary artery w/o ang pctrs JUANITA BIRCH [facility] Sep 17, 2024 12:52 PM SECONDARY Chronic kidney disease, stage 3 unspecified JUANITA BIRCH [facility] Sep 17, 2024 12:52 PM SECONDARY Type 2 diabetes mellitus with hyperglycemia JUANITA BIRCHFIELD Plan of Treatment: Future Appointments (+ 6 months) and Future Tests (+/- 45 days) The Plan of Treatment section includes future care activities for the patient [facility] [place] [facility] This section includes future appointments and future orders which are active, pending or scheduled. Future Appointments This section includes appointments that were scheduled to occur 6 months from the date of the Encounter, up to a maximum of 20 appointments. The data comes from all [place] treatment facilities. Appointment Date/Time Appointment Type Appointme nt Facility Name Oct 08, 2024 03:30 PM AMBULATORY - MEDICINE [facility] Oct 25, 2024 08:30 AM AMBULATORY - MEDICINE [facility] Lab Results: +/- 30 days of the encounter This section includes the Chemistry and Hematology Lab Results on record with [place] for the patient. Radiology Reports and Pathology Reports are provided separately, in subsequent sections. Lab Results This section contains the Chemistry/Hematology Results that were resulted 30 days before or 30 daysafter the date of the Encounter. Date/Time Source Result Type Result - Unit Interpretation Reference Range Comment Sep 02, 2024 09:36 AM [facility] LIVER FUNCTION Specimen Type: SERUM No comment entered. Ordering Provider: JUANITA BIRCH Report Released Date/Time: Aug 20, 2024 02:24 PM Reporting Lab: [address] [address] Performing Lab: [address] [address] PROTEIN,TOTAL 6.9 g/dL 6.0-8.3 ALBUMIN 3.6 g/dL 3.5-5.0 ALKALINE PHOSPHATASE 70 U/L 40-150 AST 21 U/L 5-34 ALT 29 U/L BILIRUBIN, TOTAL 0.6 mg/dL 0.2-1.2 Sep 02, 2024 09:36 AM [facility] LIPID PANEL FASTING Specimen Type: SERUM No comment entered. Ordering Provider: JUANITA BIRCH Report Released Date/Time: Aug 20, 2024 02:24 PM Reporting Lab: [address] [address] Performing Lab: [address] [address] CHOLESTEROL 167 mg/dL TRIGLYCERIDE 102 mg/dL 0-150 LDL calculated 76 mg/dL 0-129 CHOL/HDL 2.4 HDL CHOLESTEROL 71 mg/dL H 40-60 Sep 02, 2024 09:36 AM [facility] CALCIUM Specimen Type: SERUM No comment entered. Ordering Provider: JUANITA BIRCH Report Released Date/Time: Aug 20, 2024 02:24 PM Reporting Lab: [address] [address] Performing Lab: [address] [address] CALCIUM 9.1 mg/dL 8.5-10.2 Sep 02, 2024 09:36 AM [facility] URIC ACID Specimen Type: SERUM No comment entered. Ordering Provider: JUANITA BIRCH Report Released Date/Time: Aug 20, 2024 02:24 PM Reporting Lab: [address] [address] Performing Lab: [address] [address] URIC ACID 7.9 mg/dL H 3.5-7.2 Sep 02, 2024 09:36 AM [facility] VITAMIN D (25-OH) Specimen Type: SERUM No comment entered. Ordering Provider: JUANITA BIRCH Report Released Date/Time: Aug 20, 2024 02:24 PM Reporting [facility]: [facility] [address] [address] Performing Lab: [address] [address] VITAMIN D (25-OH) 45 ng/mL 20-50 Sep 02, 2024 09:36 AM [facility] FERRITIN Specimen Type: SERUM No comment entered. Ordering Provider: JUANITA BIRCH Report Released Date/Time: Aug 20, 2024 02:24 PM Reporting Lab: [address] [address] Performing Lab: [address] [address] FERRITIN 302 ng/mL H 20-300 Sep 02, 2024 09:36 AM [facility] CBC AND DIFF (AUTO) Specimen Type: BLOOD No comment entered. Ordering Provider: JUANITA BIRCH Report Released Date/Time: Aug 20, 2024 02:24 PM Reporting Lab: [address] [address] Performing Lab: [address] [address] WBC 5.39 10*3/uL 4.50-11.00 RBC 4.07 10*6/uL L 4.23-5.66 HGB 12.9 g/dL 12.8-17 HCT 37.6 L 39.2-50.4 MCV 92.4 fL 82-99 MCHC 34.3 g/dL 30.8-35.1 PLT 164 10*3/uL 140-360 RDW-CV 13.0 12.0-16.0 MONO, ABS 0.49 10*3/uL 0.30-1.10 MCH 31.7 pg 26.2-32.6 NEUT % 71.1 43.7-75.8 LYMPH % 16.1 14.0-42.3 MONO % 9.1 5.1-13.7 EOS % 3.5 0.4-6.8 BASO % 0.0 L 0.1-2.0 NEUT, ABS 3.83 10*3/uL 2.20-7.60 LYMPH, ABS 0.87 10*3/uL L 1.00-3.20 EOS, ABS 0.19 10*3/uL 0.03-0.44 BASO, ABS 0.00 10*3/uL L 0.01-0.13 IMMATURE GRAN % 0.2 0.0-0.7 IMMATURE GRAN, ABS 0.01 10*3/uL 0.00-0.06 NRBC % 0.0 0.0-0.0 NRBC, ABS 0.00 10*3/uL 0.00-0.00 Sep 02, 2024 09:36 AM [facility] HEMOGLOBIN A1C PANEL Specimen Type: BLOOD Comment: Values obtained from A1C measurements can vary. For atypical A1C assays, a reported value of 7.0 could actually be between 6.72 and 7.28 if measured by a reference method. A reported value of 9.0 could actually be between 8.73 and 9.27. Ref: http://www.ngs p.org/CAPdata. asp Ordering Provider: JUANITA BIRCH Report Released Date/Time: Aug 20, 2024 02:24 PM Reporting Lab: [facility] [address] [address] Performing Lab: [facility] [address] [address] HEMOGLOBIN A1C 7.1 H 4.0-5.6 Sep 02, 2024 09:36 AM [facility] TSH Specimen Type: SERUM No comment entered. Ordering Provider: JUANITA BIRCH Report Released Date/Time: Aug 20, 2024 02:24 PM Reporting Lab: [facility] [address] [address] [facility]forming [facility] [address] TSH 4.66 u[IU]/mL 0.35-5.00 Sep 02, 2024 09:36 AM [facility] MICROALBUMIN CREATININE RATIO PANEL Spe cimen Type: URINE No comment entered. Ordering Provider: JUANITA BIRCH Report Released Date/Time: Aug 20, 2024 02:24 PM Reporting Lab: [facility] [address] [address] Performing Lab: [facility] [address] [address] MICROALBUMIN/C REATININE RATIO 9.9 mg/g 0-29.9 MICROALBUMIN,Q UANTITATIVE 0.8 mg/dL RR UNAVAIL CREATININE URINE 80.78 mg/dL Sep 02, 2024 09:36 AM [facility] URINALYSIS Specimen Type: URINE Comment: If Glucose = >500 and Ketones are positive, please alert the Physician. Ordering Provider: JUANITA BIRCH Report Released Date/Time: Aug 20, 2024 02:24 PM Reporting Lab: [address] [address] Performing Lab: [address] [address] UA COLOR Light-Yellow Yellow UA APPEARANCE Clear Clear UA GLUCOSE Normal mg/dL Negative UA KETONES NEGATIVE mg/dL Negative UA BLOOD NEGATIVE mg/dL Negative UA PROTEIN NEGATIVE mg/dL Negative UA NITRITE NEGATIVE mg/dL Negative UA BILIRUBIN NEGATIVE mg/dL Negative UA SPECIFIC GRAVITY 1.017 1.016-1.022 UA pH 6.0 5.0-9.0 UA UROBILINOGEN Normal mg/dL <2.0 UA LEUKOCYTE TRACE Negative Sep 02, 2024 09:36 AM [facility] BASIC METABOLIC PANEL (fasting) Specime n Type: SERUM No comment entered. Ordering Provider: JUANITA BIRCH Report Released Date/Time: Aug 20, 2024 02:24 PM Reporting Lab: [address] [address] Performing Lab: [address] [address] UREA NITROGEN 45 mg/dL H 7-25 GLUCOSE 186 mg/dL H 65-100 SODIUM 142 mmol/L 135-145 POTASSIUM 4.1 mmol/L 3.5-5.0 CHLORIDE 103 mmol/L 100-110 CO2 26 meq/L 20-30 CREATININE, Serum 2.10 mg/dL H 0.50-1.40 eGFR(CKD-EPI 2020) 31 mL/min L >60 Sep 02, 2024 09:36 AM [facility] MICROSCOPIC AUTOMATED, URINE Specimen T ype: URINE Comment: If Glucose = >500 and Ketones are positive, please alert the Physician. Ordering Provider: JUANITA BIRCH Report Released Date/Time: Aug 20, 2024 02:24 PM Reporting Lab: [facility] VANDANALopez [facility] [address] [address] Performing Lab: [place] SONI VANDANALopez [facility] [address] [address] UA WBC 0-5 /[HPF] 0-5 UA MUCUS FEW /[LPF] Trace UA HYALINE CASTS 2-4 /[LPF] 0-2 UA SQUAMOUS EPITH FEW /[HPF] Vital Signs: All taken on the encounter date This section contains inpatient and outpatient Vital Signs collected on the date of the Encounter. Date/Time Temperature Pulse Blood Pressure Respiratory Rate SP02 Pain Height Weight Body Mass Index Source Sep 03, 2024 10:28 AM 97.6 79 126/76 18 98 236 34 [facility] Social History: Smoking Status (Most current) and Tobacco Use (All prior to encounter date) This section includes the most current, and the historical, smoking and tobacco- related health factors from the [place] facility where the Encounter took place. Current Smoking Status This section includes the most current smoking, or tobacco-related health factor, from the [place] facility where the Encounter took place. Date/Time Current Smoking Status Comment Buddy ity Sep 03, 2024 10:00 AM IN-TOBACCO QUIT 15 YRS OR MORE [facility] Tobacco Use History This section includes a history of the smoking, or tobacco-related health factors, that were collected on or before the date of the Encounter. The data comes from the [place] facility where the Encounter took place. Date/Time Smoking Status/Tobacco Use Comment F acility Sep 03, 2024 10:00 AM VA-TOBACCO QUIT 15 YRS OR MORE [facility] Sep 05, 2023 10:00 AM VA-TOBACCO FORMER USER [facility] Sep 05, 2023 10:00 AM VA-TOBACCO NEVER USED [facility] Sep 05, 2023 10:00 AM VA-TOBACCO QUIT 15 YRS OR MORE [facility] Sep 08, 2022 11:30 AM VA-TOBACCO FORMER USER [facility] Sep 08, 2022 11:30 AM VA-TOBACCO QUIT 15 YRS OR MORE [facility] Jul 08, 2021 09:30 AM VA-TOBACCO FORMER USER [facility] Jul 08, 2021 09:30 AM VA-TOBACCO QUIT 15 YRS OR MORE [facility] May 28, 2020 10:04 AM VA-TOBACCO NEVER USED [facility] May 29, 2018 09:51 AM VA-TOBACCO FORMER USER [facility] May 29, 2018 09:51 AM VA-TOBACCO QUIT 15 YRS OR MORE [facility] May 29, 2018 09:39 AM LIFETIME NON-TOBACCO USER [facility] May 04, 2017 02:38 PM QUIT TOBACCO USE > 7 YEARS AGO [facility] Apr 28, 2016 10:02 AM QUIT TOBACCO USE > 7 YEARS AGO smoked for 4 years about 2 pack a week quit 50 years ago [facility] Aug 20, 2013 09:48 AM QUIT TOBACCO USE > 7 YEARS AGO 22 yo [facility] Encounter Notes: All associated encounter notes This section contains the clinical notes associated to the Encounter. Date/Time Encounter Note(s) Provider Source Sep 03, 2024 10:23 AM PHYSICIAN JERRY T NOTE: LOCAL TITLE: PA NOTE STANDARD TITLE: PHYSICIAN LEAD PRESSMAN [employer] PRINTING NOTE DATE OF NOTE: SEP 03, 2024@10:23 ENTRY DATE: SEP 03, 2024@10:23:14 AUTHOR: JUANITA BIRCH COSIGNER: URGENCY: STATUS: COMPLETED S - routine re-eval O - coop A&Ox3 NAD W-N/H/D HEENT: normocephalic NECK: supple mobile no bruits not tender and no adeno LUNGS: resp full reg unlabored; CTA b/l COR: RRR, no M ABD: soft, not tender no mass, megaly EXT: 2+ baseline LLE; calf tenderness FEET: dist neuro vascu essentially intact LABS: reviewed w/ pt A/P - 1) HTN - BP 126/76 2) CKD Stage 3; eGFR 31 (a decline); Creat 2.1 and K 4.5 in AUG 29 *eGFR was 38 in MAY 27 3) PVD, Both LE's - on Lasix 4) CAD - Stable and s/p CABG Yrs Ago 5) Neuro Stable - never CVA/TIA 6) Hypercholesterolemia - LDL 76 in AUG 29 7) On Anti-Coag Therapy?? YES (see below) - on ASA - cont Lipitor; LFT's WNL; Zetia, too - on Metoprol SUCC - HR 80 - diet, wt - has private Cardio - not seen since 2021 8) DM II - FBS 186 and A1C 7.1 in AUG 29 Better: A1C was 8.1 in MAY 29 - see Diabet Pharm D Notes Dated APRIL 29 and FEB 27 - cont Insulin, Lantus Once Day - stopped Semaglutide (Ozempic) - didn't like how it made me feel - also stopped Jardiance (Empagliflozin) - foot and eye care - diet, wt 9) CBC Profile: No Concerns 10) Asbestosis (decades-long) - Recently, Completed Pulmo Rehab - now --- O2 Dependent 11) Health Maintenance - 10) Stress? - nothing untoward RTC AUG 25 - labs before Suicide Screen: C-SSRS Screening [place]-Suicide Severity Rating Scale (C-SSRS Screener) 1. Over the past month, have you wished you were or wished you could go to sleep and not wake up? No 2. Over the past month, have you had any actual thoughts of killing yourself? No 3. Over the past month, have you been thinking about how you might do this? Response not required due to responses to other questions. 4. Over the past month, have you had these thoughts and had some intention of acting on them? Response not required due to responses to other questions. 5. Over the past month, have you started to work out or worked out the details of how to kill yourself? Response not required due to responses to other questions. 6. If yes, at any time in the past month did you intend to carry out this plan? Response not required due to responses to other questions. 7. In your lifetime, have you ever done anything, started to do anything, or prepared to do anything to end your life (for example, collected pills, obtained a gun, gave away valuables, went to the roof but didn't jump)? No 8. If YES, was this within the past 3 months? Response not required due to responses to other questions. Homelessness/Food Insecurity Screen: In the past 2 months, have you been living in stable housing that you own, rent, or stay in as part of a household? Yes - Living in stable housing. Are you worried or concerned that in the next 2 months you may NOT have stable housing that you own, rent, or stay in as part of a household? No - Not worried about housing near future [facility] [place] reports the following: Within the past 12 months, you worried whether your food would run out before you got money to buy more. Never true Within the past 12 months, the food you bought just didn't last and you didn't have money to get more. Never true Depression Screening: Perform PHQ-2 A PHQ-2 screen was performed. The score was 0 which is a negative screen for depression. Over the past two weeks, how often have you been bothered by the following problems? 1. Little interest or pleasure in doing things Not at all 2. Feeling down, depressed, or hopeless Not at all Falls & Incontinence Screen: Falls Screen: 4. No falls within the past year. Incontinence Screen No incontinence. Tobacco Use Screening: The patient is a former tobacco user. The patient quit fifteen or more years ago. Alcohol Use Screen (AUDIT-C): Alcohol Screen: SCREEN FOR ALCOHOL (AUDIT-C) An alcohol screening test (AUDIT-C) was negative (score=0). 1. How often did you have a drink containing alcohol in the past year? Consider a drink to be a 12 ounce can or bottle of regular beer, 8 ounces of malt liquor, a 5 ounce glass of table wine, or a 1.5 ounce shot of liquor (like scotch, gin, or vodka). Never 2. How many drinks containing alcohol did you have on a typical day when you were drinking in the past year? Response not required due to responses to other questions. 3. How often did you have six or more drinks on one occasion in the past year? Response not required due to responses to other questions. PAVE Foot Check: A complete foot check was completed at this encounter. VISUAL INSPECTION: Includes inspection for skin breaks, deformity, erythema, trauma, pallor on elevation, dependent rubor, nail deformities, extensive callus and pitting edema. Visual exam results: Normal Comment: nl PEDAL PULSES: Includes palpation of dorsalis and posterior tibial pulses and signs/symptoms of vascular compromise like pain, pallor, parasthesia or paralysis. Present (even if diminished) Comment: decreased SENSORY CHECK: Includes 10 gram Monofilament ([place]) test of sensation. Intact (Greater than or equal to 80% of sites checked) Abnormal (Less than 80% of sites checked): Intact Comment: nt LOW-RISK: LOW RISK INFORMATION PROVIDED: 1. Advised patient not to walk barefoot. 2. Explained the importance of daily foot checks for changes. 3. Stressed the importance of daily foot hygiene, including bathing and complete drying. The patient verbalized understanding and was offered a detailed handout on diabetic foot care. /celina/ JUANITA BIRCH PA-C STAFF PHYSICIAN LEAD PRESSMAN [employer] Signed: 09/03/2024 10:53 JUANITA BIRCH
--- OUTSIDE RECORDS SUMMARY | 2024-10-15 16:49 | XMS_ITS ---
Author Name [facility] [place] [facility] [place] [facility] [place] Address [address] [place] [address] Care Team Providers Care Rf Microwave Engineer Name Role Phone JUANITA BIRCH Primary Care [...] Policy Bradford [facility] Nov [facility], 2016 MEDICAR E SUPPLEM E [id number] Rao ODELL PATIENT MEDICARE (WNR) MEDICARE (M) PART A May 06, 2008 PART A [id number] [facility] Rao ODELL PATIENT MEDICARE (WNR) MEDICARE (M) PART B May 06, 2008 PART B [id number] Rao ODELL PATIENT MEDICARE (WNR) MEDICARE (M) PART A May 06, 2008 PART A [id number] Rao ODELL PATIENT MEDICARE (WNR) MEDICARE (M) PART B May 06, 2008 PART B [id number] [phone] Rao ODELL PATIENT Selected Encounter This section includes the information on record at [place] for the Encounter. Date/Time Encounter Type Encounter Description Reason Pro vider Source April 02, 2024 12:00 AM Outpatient Encounter EVENT (HISTORICAL) [...] 2024 10:00 AM [facility] Active, Pending, and Scheduled Orders This section includes a listing of several types of active, pending, and scheduled orders, including clinic medications orders, diagnostic test orders, procedure orders and consult orders; where the start date of the order is 45 days before the date of the Encounter or 45 days after the date of theEncounter. The data comes from all [place] treatment facilities. Test Date/Time Test Type Test Details Facility Name Mar 04, 2024 12:00 AM Laboratory - Chemistry Order HEMOGLOBIN A1C PANEL BLOOD (LAV-BLOOD) [facility] Mar 04, 2024 12:00 AM Laboratory - Chemistry Order CREATININE (eGFR 2020) BLOOD (SST-SERUM) [facility] Encounter Notes: All associated encounter notes This section contains the clinical notes associated to the Encounter. Date/Time Encounter Note(s) Provider Source April 02, 2024 12:00 AM NURSING ADMINISTRA TIVE NOTE: LOCAL TITLE: NON-VA PRESCRIPTION STANDARD TITLE: NURSING ADMINISTRATIVE NOTE DATE OF NOTE: APRIL 02, 2024 ENTRY DATE: JUL 02, 2024@09:13:38 AUTHOR: GREYSON RONDON EXP COSIGNER: URGENCY: STATUS: COMPLETED VistA Imaging - Scanned Document SCANNED DOCUMENT SIGNATURE NOT REQUIRED Electronically Filed: 07/02/2024 by: [facility]ON [facility]
--- OUTSIDE RECORDS SUMMARY | 2024-10-15 16:49 | XMS_ITS | Encounter Summary ---
Author Name [facility] [place] Address [address] [place] [address] Care Team Providers Care Assistant Engineer Name Role Phone JUANITA BIRCH Primary [...] Bradford's Name Patient's Relationship to Policy Bradford [facility] MEDICARE SUPPLEMEN HANS MA IND Nov 06, 2016 MEDICAR E SUPPLEM E [id number] Rao ODELL PATIENT MEDICARE (WNR) MEDICARE (M) PART A May 06, 2008 PART A [id number] [facility] Rao ODELL PATIENT MEDICARE (WNR) MEDICARE (M) PART B May 06, 2008 PART B [id number] [facility] [id number] Rao ODELL PATIENT MEDICARE (WNR) MEDICARE (M) PART A May 06, 2008 PART A [id number] [phone] Rao ODELL PATIENT MEDICARE (WNR) MEDICARE (M) PART B May 06, 2008 PART B [id number] Rao ODELL PATIENT Selected Encounter This section includes the information on record at [place] for the Encounter. Date/Time Encounter Type Encounter Description Reason Provider Source Oct 08, 2024 03:30 PM MTMS BY PHARM BAKERY WORKER CONVEYOR LINE 15 MIN TELEPHONE PRIMARY CARE ICD-10-CM E11.65 Type 2 diabetes mellitus with hyperglycemia ELVIA WONG Darrel Encounter Template Text not used by [place] Assessments - Encounter Diagnoses This section includes the primary and secondary diagnoses documented for the Encounter. Date/Time Primary/Secondary Diagnosis Diagnosis Name Provider Source Oct 08, 2024 03:30 PM PRIMARY Type 2 diabetes mellitus with hyperglycemia ELVIA WONG [place] Plan of Treatment: Future Appointments (+ 6 months) and Future Tests (+/- 45 days) The Plan of Treatment section includes future care activities for the patient from all [place] [facility] This section includes future appointments and future orders which are active, pending or scheduled. Future Appointments This section includes appointments that were scheduled to occur 6 months from the date of the Encounter, up to a maximum of 20 appointments. The data comes from all [place] treatment facilities. Appointment Date/Time Appointment Type Appointme nt Facility Name Oct 25, 2024 08:30 AM AM[place]ULATORY - [place]ICINE [place] [facility] Social History: Smoking Status (Most current) and Tobacco Use (All prior to encounter date) This section includes the most current, and the historical, smoking and tobacco- related health factors from the [facility] facility where the Encounter took place. Current Smoking Status This section includes the most current smoking, or tobacco-related health factor, from the [place] facility where the Encounter took place. Date/Time Current Smoking Status Comment Facil ity Sep 03, 2024 10:00 AM VA-TOBACCO FORMER USER [place] Tobacco Use History This section includes a history of the smoking, or tobacco-related health factors, that were collected on or before the date of the Encounter. The data comes from the [place] facility where the Encounter took place. Date/Time Smoking Status/Tobacco Use Comment F acility Sep 03, 2024 10:00 AM VA-TOBACCO QUIT 15 YRS OR MORE [place] Sep 05, 2023 10:00 AM VA-TOBACCO FORMER USER [place] Sep 05, 2023 10:00 AM VA-TOBACCO NEVER USED [place] Sep 05, 2023 10:00 AM VA-TOBACCO QUIT 15 YRS OR MORE [place] Sep 08, 2022 11:30 AM VA-TOBACCO FORMER USER [place] Sep 08, 2022 11:30 AM VA-TOBACCO QUIT 15 YRS OR MORE [place] Jul 08, 2021 09:30 AM VA-TOBACCO FORMER USER [place] Jul 08, 2021 09:30 AM VA-TOBACCO QUIT 15 YRS OR MORE [place] May 28, 2020 10:04 AM VA-TOBACCO NEVER USED [place] May 29, 2018 09:51 AM VA-TOBACCO FORMER USER [place] May 29, 2018 09:51 AM VA-TOBACCO QUIT 15 YRS OR MORE [place] May 29, 2018 09:39 AM LIFETIME NON-TOBACCO USER [place] May 04, 2017 02:38 PM QUIT TOBACCO USE > 7 YEARS AGO [place] Apr 28, 2016 10:02 AM QUIT TOBACCO USE > 7 YEARS AGO smoked for 4 years about 2 pack a week quit 50 years ago [place] Aug 20, 2013 09:48 AM QUIT TOBACCO USE > 7 YEARS AGO 22 yo [place] Encounter Notes: All associated encounter notes This section contains the clinical notes associated to the Encounter. Date/Time Encounter Note(s) Provider Source Oct 08, 2024 03:09 PM PHARMACY OUTPATIEN T NOTE: LOCAL TITLE: PHARMACY CLINIC NOTE STANDARD TITLE: PHARMACY OUTPATIENT NOTE DATE OF NOTE: OCT 08, 2024@15:09 ENTRY DATE: OCT 08, 2024@15:09:46 AUTHOR: ELVIA WONG COSIGNER: URGENCY: STATUS: COMPLETED Known Allergies: Patient has answered NKA MATHEW ODELL contacted for diabetes management treatment. Subjective: Loami referred to pharmacy PACT clinic by PCP for consideration of GLP-1 agonist or SGLT-2 inhibitor. 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 He is followed by non-VA PCP q3 months. At time of last visit, no changes were made to DM regimen. Continues using Chelsie 3 without issues. Notes BG trending up but does not know why. Objective: Diabetes Medication Regimen: insulin glargine 28 units daily (PM) Previous DM Medication(s): empagliflozin (d/c'd d/t lightheadedness) semaglutide (d/c'd d/t dizziness, not r/t hypoglycemia) HEMOGLOBIN A1C TREND Collection DT Spec HGBA1c 09/02/2024 09:36 BLOOD 7.1 H 05/24/2022 11:18 BLOOD 8.1 H 06/30/2021 08:28 BLOOD 8.7 H 05/27/2019 07:45 BLOOD 8.2 H 04/26/2016 10:39 BLOOD 7.0 H LIPID PANEL TREND Collection DT Spec CHOL HDL CHO/HDL LDL-c TRIG 09/02/2024 09:36 SERUM 167 71 H 2.4 76 102 05/24/2022 11:18 SERUM 163 62 H 2.6 82 96 06/30/2021 08:28 SERUM 148 61 H 2.4 69 90 05/27/2019 07:45 SERUM 302 H 67 H 4.5 207 H 141 04/26/2016 10:39 SERUM 214 H 61 H 3.5 132 H 105 CREATININE-EGFR 09/02/24 09:36 2.10 H Patient self-monitoring of blood glucose: At home: [...] Target >250mg/dL 26% 181-250mg/dL 48% 70-180 26% 04/15/24 Chelsie 3: 7 day avg. 189mg/dL 12am-3am 191mg/dL 3am-6am 166 6am-9am 123 9am-12am 126 12am-3pm 244 3pm-6pm 208 6pm-9pm 190 9pm-12am 237 Low glucose events 1 Time in Target >250mg/dL 16% 181-250mg/dL 35% 70-180mg/dL 48% 54-69mg/dL 1% <54mg/dL 0% 10/08/24 Chelsie 3: 7 day avg. 226mg/dL 12am-3am 240mg/dL 3am-6am 187 6am-9am 162 9am-12am 215 12am-3pm 216 3pm-6pm 240 6pm-9pm 288 9pm-12am 270 Low glucose events 0 Time in Target >250mg/dL 33% 181-250mg/dL 41% 70-180mg/dL 26% 54-69mg/dL 0% <54mg/dL 0% Patient eats on avg. 2x day: Diet [...] Asessment/Plan: A1c is currently AT goal of <7-8% or <8-9%. Chelsie targets: Time in range: 50-70%; time above range: <25 or <50% for older/high risk pts; time below range: <4% or <1% for older/high risk pts) A1c at goal but Chelsie indicates BG mostly above goal. Reviewed factors that may contribute to this and discussed target BG <200mg/dL. Will titrate insulin glargine slightly. Note pt could not tolerate GLP-1 agonist and SGLT-2 inhibitor. Will continue with Chelsie 3. Pt to contact clinic if BG trending <100mg/dL or >250mg/dL. Diabetes (Goal A1c<7%, FBG 90-110mg/dL, 2hPP<180mg/dL): - INCREASE insulin glargine 30 units daily - Continue to SMBG 6x/day with Chelsie - Monitor for s/sx hypoglycemia and contact clinic if BG consistently < 70mg/dL - LSMs encouraged - Repeat A1c: November 2024 Clinic's Next Scheduled Follow-up: ~3-4 weeks (cell: [phone]) HTN: Last BP at goal; no TAMMIE-I/ARB. Defer to PCP. ASCVD: atorvastatin 80mg/day. Microalb: 13.2mg/G (05/2022) History of Preventive Care: Most recent visit to facilities specialist: none; counseled Most recent visit to optometry: non-VA 02/2024; states no DR. He was told it looks fantastic, no issues at all . Time Spent: 20 minutes PBM PharmD Pharmacotherapy Rem V12: PHARMACIST INTERVENTIONS: TYPE 2 DIABETES MELLITUS Medication Intervention(s) Medication reconciliation (changes to active VA and non-VA medication lists to reconcile differences) Changes to medication lists made Update dose, frequency, duration and/or dosage form of medication /celina/ Elvia Wong PharmD Clinical Pharmacy Practitioner Signed: 10/08/2024 15:26 ELVIA WONG
--- OUTSIDE RECORDS SUMMARY | 2024-10-15 16:49 | XMS_ITS | Encounter Summary ---
Author Name [facility] [place] Address [address] [place] [id number] Care Team Providers Care Ceramic Capacitor Processor Name Role Phone JUANITA BIRCH Primary Care [...] Bradford's Name Patient's Relationship to Policy Bradford [facility] MEDICARE SUPPLEMEN HANS MA IND Nov 06, 2016 MEDICAR E SUPPLEM E [id number] Rao ODELL PATIENT MEDICARE (WNR) MEDICARE (M) PART A May 06, 2008 PART A [id number] [facility] [id number] Rao ODELL PATIENT MEDICARE (WNR) MEDICARE (M) PART B May 06, 2008 PART B [id number] [facility] [id number] Rao ODELL PATIENT MEDICARE (WNR) MEDICARE (M) PART A May 06, 2008 PART A [id number] Rao ODELL PATIENT MEDICARE (WNR) MEDICARE (M) PART B May 06, 2008 PART B [id number] Rao ODELL PATIENT Selected Encounter This section includes the information on record at [place] for the Encounter. Date/Time Encounter Type Encounter Description Reason Provider Source Apr 15, 2024 09:00 AM MTMS BY PHARM JB 15 MIN CLINICAL PHARMACY ICD-10-CM E11.65 Type 2 diabetes mellitus with hyperglycemia ELVIA WONG Darrel Encounter Template Text not used by [place] Assessments - Encounter Diagnoses This section includes the primary and secondary diagnoses documented for the Encounter. Date/Time Primary/Secondary Diagnosis Diagnosis Name Provider Source Apr 15, 2024 09:09 AM PRIMARY Type 2 diabetes mellitus with hyperglycemia ELVIA WONG [place] Plan of Treatment: Future Appointments (+ 6 months) and Future Tests (+/- 45 days) The Plan of Treatment section includes future care activities for the patient [facility] [place] [facility]. This section includes future appointments and future orders which are active, pending or scheduled. Future Appointments This section includes appointments that were scheduled to occur 6 months from the date of the Encounter, up to a maximum of 20 appointments. The data comes from all [place] treatment facilities. Appointment Date/Time Appointment Type Appointme nt Facility Name Sep 03, 2024 10:00 AM AMBULATORY - MEDICINE [facility] [place] Oct 08, 2024 03:30 PM [facility]ORY [facility] MEDICINE [facility] Active, Pending, and Scheduled Orders This section includes a listing of several types of active, pending, and scheduled orders, including clinic medications orders, diagnostic test orders, procedure orders and consult orders; where the start date of the order is 45 days before the date of the Encounter or 45 days after the date of theEncounter. The data comes from all [place] treatment [facility]. Test Date/Time Test Type Test Details Facility Name Mar 04, 2024 12:00 AM Laboratory - Chemistry Order HEMOGLOBIN A1C PANEL BLOOD (LAV-BLOOD) [facility] Mar 04, 2024 12:00 AM Laboratory - Chemistry Order CREATININE (eGFR 2020) BLOOD (SST-SERUM) [facility] Social History: Smoking Status (Most current) and Tobacco Use (All prior to encounter date) This section includes the most current, and the historical, smoking and tobacco- related health factors from the [place] facility where the Encounter took place. Current Smoking Status This section includes the most current smoking, or tobacco-related health factor, from the [place] facility where the Encounter took place. Date/Time Current Smoking Status Comment Facil ity Sep 05, 2023 10:00 AM VA-TOBACCO FORMER USER [place] Tobacco Use History This section includes a history of the smoking, or tobacco-related health factors, that were collected on or before the date of the Encounter. The data comes from the [place] facility where the Encounter took place. Date/Time Smoking Status/Tobacco Use Comment Linda carranza Sep 05, 2023 10:00 AM VA-TOBACCO NEVER USED [place] Sep 05, 2023 10:00 AM VA-TOBACCO QUIT 15 YRS OR MORE [place] Sep 08, 2022 11:30 AM VA-TOBACCO FORMER USER [place] Sep 08, 2022 11:30 AM VA-TOBACCO QUIT 15 YRS OR MORE [place] Jul 08, 2021 09:30 AM VA-TOBACCO FORMER USER [place] Jul 08, 2021 09:30 AM VA-TOBACCO QUIT 15 YRS OR MORE [place] May 28, 2020 10:04 AM VA-TOBACCO NEVER USED [place] May 29, 2018 09:51 AM VA-TOBACCO FORMER USER [place] May 29, 2018 09:51 AM VA-TOBACCO QUIT 15 YRS OR MORE [place] May 29, 2018 09:39 AM LIFETIME NON-TOBACCO USER [place] May 04, 2017 02:38 PM QUIT TOBACCO USE > 7 YEARS AGO [place] Apr 28, 2016 10:02 AM QUIT TOBACCO USE > 7 YEARS AGO smoked for 4 years about 2 pack a week quit 50 years ago [place] Aug 20, 2013 09:48 AM QUIT TOBACCO USE > 7 YEARS AGO 22 yo [place] Encounter Notes: All associated encounter notes This section contains the clinical notes associated to the Encounter. Date/Time Encounter Note(s) Provider Source Apr 15, 2024 08:53 AM PHARMACY OUTPATIEN T NOTE: LOCAL TITLE: PHARMACY CLINIC NOTE STANDARD TITLE: PHARMACY OUTPATIENT NOTE DATE OF NOTE: APR 15, 2024@08:53 ENTRY DATE: APR 15, 2024@08:53:51 AUTHOR: ELVIA WONG EXP COSIGNER: URGENCY: STATUS: COMPLETED Known Allergies: Patient has answered NKA MATHEW ODELL presented for diabetes management treatment. Subjective: referred to [...] March 2024. At time of last visit, semaglutide was initiated; however, pt did not tolerate so this was d/c'd. Feeling better since. Continues using Chelsie 3 without issues. Notes he had A1c repeated non-VA and this was improved to 7.8% (04/2024). Objective: Diabetes Medication Regimen: insulin glargine 28 units daily (PM) Previous DM Medication(s): empagliflozin (d/c'd d/t lightheadedness) semaglutide (d/c'd d/t dizziness, not r/t hypoglycemia) Non-VA Labwork: 04/2024 7.8% 01/17/24 SCr 1.84mg/dL eGFR 36 A1c 8% [...] 35% 70-180mg/dL 48% 54-69mg/dL 1% <54mg/dL 0% Patient eats on avg. 2x [...] currently AT goal of <7-8% or <8-9%. A1c and BG readings improved. Considering age and target A1c, mostly at goal. Discussed factors that may contribute to higher readings. LSMs reviewd. No changes for now; continue insulin glargine only as pt could not tolerate GLP-1 agonist and SGLT-2 inhibitor. Will continue with Chelsie 3 and f/u q6-12 months and sooner as needed. Pt to contact clinic if BG trending <100mg/dL or > 250mg/dL. Diabetes (Goal A1c<7%, FBG 90-110mg/dL, 2hPP<180mg/dL): - Continue insulin glargine 28 units daily - Continue to SMBG 6x/day with Chelsie - Monitor for s/sx hypoglycemia and contact clinic if BG consistently < 70mg/dL - LSMs encouraged - Repeat A1c: 3-6 months Clinic's Next Scheduled Follow-up: ~6 months HTN: Non-VA BP 138/68 at recent PCP visit; notes mostly at goal. No TAMMIE-I/ARB. Defer to PCP. ASCVD: atorvastatin 80mg/day. Microalb: 13.2mg/G (05/2022) History of Preventive Care: Most recent visit to workers' compensation mediator: none; counseled Most recent visit to optometry: [...] review completed, no discrepancies identified) /celina/ Elvia Wong, PharmD Clinical Pharmacy Practitioner Signed: 04/15/2024 09:09 ELVIA WONG
== END 2024-10-09 09:07 | disposition home or self-care (01) ==
LOC: HO.HMGCLDS 09:06
PROVIDERS: PCP Family Medicine; Visit Provider Family Medicine
DX: I10 Essential (primary) hypertension (principal); E11.9 Type 2 diabetes mellitus without complications; E78.00 Pure hypercholesterolemia, unspecified; D50.9 Iron deficiency anemia, unspecified
CPT/HCPCS: 36415; 80051; 82043; 82565; 82570; 82947; 83036; 83540; 84450; 84460; 84520; 85025

== ENCOUNTER 2024-10-16 11:26 | Observation (INO) | payer MEDICARE, OTHER, SELFPAY ==
--- NOTE | ~2024-10-16 | XR_ITS ---
EXAMINATION: XR CHEST CLINICAL INFORMATION: dyspnea COMPARISON: Chest x-ray February 07, 2024 TECHNIQUE: 2 views of the chest were obtained. FINDINGS: Chronic bilateral pleural thickening and pleural calcifications. Status post median sternotomy. Heart size is normal. No pulmonary vascular congestion. No focal consolidation. No change since prior chest x-ray. XR/XR chest 2V IMPRESSION: No acute abnormality of chest. Electronically signed by: Dipesh Hamilton MD 10/16/2024 03:18 PM MARJORIE
--- NOTE | 2024-10-16 11:45 | ED_ITS ---
HPI - General Adult General Chief complaint: Arrhythmia/Palpitations Stated complaint: new onset afib symptomatic Time Seen by Provider: 10/16/24 12:32 Source: patient Mode of arrival: ambulatory Limitations: no limitations History of Present Illness ED Provider: DR. Villafana HPI narrative: [age] male who was brought in from PCP office (Dr. Palmer) with past medical history significant for COPD, lung asbestosis and lung fibrosis use 3 L of oxygen p.r.n. at home, history of . Was seen and evaluated by PCP found to be in the new onset atrial fibrillation with well rate controlled, patient was little lethargic and confused patient was sent to the emergency department for further evaluation, patient was prescribed anticoagulation to be started from today and sent to the emergency department for further cardiology evaluation. Currently patient has no complaint, and remained asymptomatic with improvement of his confusion in the emergency department. Related Data Home Medications ?Medication ?Instructions ?Recorded ?Confirmed ascorbate calcium (vitamin C) 500 500 mg PO DAILY 12/24/20 08/04/21 mg tablet aspirin 81 mg tablet,delayed 81 mg PO DAILY 12/24/20 08/04/21 release (Adult Low Dose Aspirin) atorvastatin 80 mg tablet 80 mg PO DAILY 12/24/20 08/04/21 ferrous sulfate 325 mg (65 mg 325 mg PO DAILY 12/24/20 08/04/21 iron) tablet metoprolol tartrate 25 mg tablet 12.5 mg PO BID 12/24/20 08/04/21 multivitamin 1 tab PO DAILY 12/24/20 08/04/21 omega-3 fatty acids 500 mg capsule 500 mg PO DAILY 12/24/20 08/04/21 sertraline 100 mg tablet 200 mg PO DAILY 12/24/20 08/04/21 torsemide 20 mg tablet 20 mg PO DAILY 01/04/21 08/04/21 insulin glargine 100 unit/mL 25 unit subcut QPM 05/24/22 subcutaneous solution (Lantus U-100 Insulin) ipratropium 0.5 mg-albuterol 3 mg ml inhalation QID 05/24/22 (2.5 mg base)/3 mL nebulization soln bupropion HCl 150 mg tablet,12 hr 150 mg PO QAM 11/14/22 sustained-release Oxygen Home Use 12/08/22 nebulizers 12/08/22 famotidine 20 mg tablet 20 mg PO DAILY 04/03/24 Allergies Allergy/AdvReac Type Severity Reaction Status Date / Time No Known Allergies Allergy Verified 10/16/24 11:47 [No Known Allergies*] Review of Systems 2 Review of Systems: All other systems are reviewed and are negative Constitutional: Reports as per HPI and Reports no additional constitutional complaints Eyes: Reports as per HPI and Reports no additional eye complaints Reports system reviewed and no additional complaints, except as documented Cardiovascular: Reports as per HPI and Reports no additional cardiovascular complaints Respiratory: Reports as per HPI and Reports no additional respiratory complaints Gastrointestinal: Reports as per HPI and Reports no additional gastrointestinal complaints Genitourinary: Reports no additional female genitourinary complaints Musculoskeletal: Reports no additional musculoskeletal complaints Skin/Breast: Reports system reviewed and no additional complaints, except as docu Psychiatric: Reports no additional psychiatric complaints Endocrine: Reports no additional endocrine complaints Hematologic/Lymphatic: Reports no additional hematologic/lymphatic complaints Allergic/Immunologic: Reports no additional allergic/immunologic complaints Reports system reviewed and no additional complaints, except as documented and Reports Abnormal speech present [facility] Past Medical History Medical History Hypoxia Pulmonary nodules Chronic restrictive lung disease Chronic respiratory failure Pulmonary fibrosis Asbestosis Surgical History History of open heart surgery Family History Family History Mother Ovarian cancer Father Heart attack Brother Heart attack Sister Diabetes Social History Social History Alcohol intake: former Year quit: 1989 Patient Tobacco Use Status: Former Tobacco user Tobacco use type: Cigarette Years Smoked: 8 Years Advance Directives: No Advance Directives Information Provided: Yes Physical Exam ED Vital Signs: Vital Signs - 24 hr 10/16/24 11:46 Temperature 97.8 F Pulse Rate 92 Respiratory Rate 20 Blood Pressure 120/76 Pulse Oximetry 98 Oxygen Delivery Method Nasal Cannula BMI result Body Mass Index 32.1 Vital signs have been reviewed and appear to be correct. Blood pressure elevated. Heart rate normal. Respiratory rate normal. Temperature normal. Oxygen saturation normal. Appearance: Alert. Oriented X3. No acute distress. Head: Normal external exam. Normocephalic. Atraumatic. No Jessica signs noted. No raccoon eyes noted Eyes: PERRLA. EOMI. Conjunctiva and sclera normal. Eyelids normal. ENT: TM's Normal. Pharynx normal. Uvula midline. Moist mucous membranes. No trismus noted. No drooling noted. No muffled voice noted. Neck: Normal inspection. Neck supple. FROM. No adenopathy. Thyroid Normal. No meningeal signs. No neck mass noted. CVS: Normal heart rate and rhythm. Heart sound normal. No murmurs noted. Pulses normal throughout. Respiratory: No respiratory distress. Painless inspiration. Breath sounds normal. No wheezes/rales/rhonchi noted. Chest nontender. No accessory muscle usage noted or decreased air movement noted. Abdomen: Soft and nontender. Bowel sounds normal in all 4 quadrants. No distention noted. No organomegaly noted. No visible injury noted. Back: No CVA tenderness. Full range of motion noted. Skin: Skin warm and dry. Normal skin color. Normal skin turgor. No rashes/lesions/lacerations noted. Extremities: No lower extremity edema. Extremities exhibit normal range of motion. Extremities nontender. Neuro: Oriented X 3. Cranial nerve exam: II-XII are grossly intact No motor deficit. No sensory deficit. Reflexes normal. Course Course Course Narrative: This is a rapid medical exam performed by Deshawn Billings NP: Additional HPI, ROS, PE not included below will be deferred to primary provider. Patient is an 79y/o M presenting from Dr. Westfall's office with pmhx of pulmonary fibrosis, CAD, CABG, HTN, aortic stenosis, chronic restrictive lung disease. Found to be in new onset afib at the office. Dr. Hutson was consulted, as rate was controlled, prescribed anticoagulant, but patient was then found to be hypotensive, complaining of generalized weakness so he was sent to the ED. Plan: EKG, labs, CXR, viral serology Reevaluation(s) Reevaluation #1: New onset AFib, a candidate to start on anticoagulation will start the patient on Eliquis 2.5 mg in the emergency department, admit for further echo and cardiology's evaluation. Time: 13:36 Medical Decision Making Differential Diagnosis Differential Diagnoses: The differential diagnosis associated with the presentation includes (Severe , CHF, ACS, my derangement, severe anemia,) Admission/Observation Consideration of admission/observation: Escalation of care including admission/observation considered Consult Healthcare Provider Management of the patient was discussed with: Hospitalist (Ace) and Education Faculty Member (DR Hutson) Lab Data MDM Lab Attestation statement: I reviewed the patient's lab results. 10/16/24 12:09 10/16/24 12:09 Labs: Lab Results 10/16/24 Range/Units 12:09 WBC 8.0 (4.8-10.8) X10*3/uL RBC 4.37 L (4.60-5.80) X10*6/uL Hgb 14.0 (14.0-18.0) g/dl Hct 39.5 L (42.0-52.0) % MCV 90.4 (80.0-98.0) fL MCH 32.0 (27.0-33.0) pg MCHC 35.4 (31.0-36.0) g/dl RDW 12.8 (11.0-16.0) % Plt Count 158 L (160-400) X10*3/uL MPV 9.9 (9.4-12.4) fL Immature Gran % (Auto) 0.5 H (0.0-0.4) % Neut % (Auto) 74.2 H (45-73) % Lymph % (Auto) 15.3 L (20-40) % [place] % (Auto) 7.8 (2-11) % Eos % (Auto) 2.1 (0-4) % Baso % (Auto) 0.1 (0-2) % Lymph # (Auto) 1.2 (1.2-4.9) X10*3/uL [place] # (Auto) 0.6 (0.1-1.2) X10*3/uL Eos # (Auto) 0.2 (0.0-0.4) X10*3/uL Baso # (Auto) 0.0 (0.0-0.2) X10*3/uL Abs Immat Gran (auto) 0.04 H (0.00-0.03) X10*3/uL Absolute Neuts (auto) 6.0 (2.0-8.3) x10*3/uL Absolute Nucleated RBC 0.000 (0.0-0.012) X10*3/uL Nucleated RBC % (auto) 0.0 (0.0-0.2) /100WBC PT 11.5 (10.9-12.4) SEC INR 1.0 (0.9-1.1) Sodium 141 (135-145) mmol/L Potassium 4.4 (3.3-5.1) mmol/L Chloride 104 (96-108) mmol/L Carbon Dioxide 27 (22-29) mmol/L Anion Gap 14 (12-20) BUN 36 H (9-16) mg/dL Creatinine 1.91 H (0.5-1.4) mg/dL Estim Creat Clear Calc 36.2 Estimated GFR 34 Random Glucose 216 H (60-115) mg/dL Calcium 9.7 D (8.4-10.2) mg/dL Magnesium 2.2 (1.6-2.6) mg/dL Total Bilirubin 0.5 (0.0-1.0) mg/dL AST 25 (5-37) U/L ALT 23 (0-40) U/L Alkaline Phosphatase 82 (39-117) U/L Troponin I High Sens 10.9 (<3.5-35.0) ng/L B-Natriuretic Peptide 667 H (<100) pg/mL Total Protein 7.1 (6.5-8.0) g/dL Albumin 3.7 (3.5-5.0) g/dL Influenza Type A (PCR) NEGATIVE (Negative) Influenza Type B (PCR) NEGATIVE (Negative) RSV RNA Qual (PCR) NEGATIVE (Negative) SARS-CoV-2 RNA (RT-PCR) NEGATIVE (Negative) Independent Interpretation I performed an independent interpretation of an: Plain X-Ray (Chest: Pulmonary congestion) Radiology Impression Discussion of test interpretation with radiology: I have reviewed the radiologist's reading. Discharge Plan Discharge Clinical Impression: Asbestosis, Atrial fibrillation, new onset Patient Disposition: Admitted As Inpatient Prescriptions: No Action sertraline 100 mg tablet 200 mg PO DAILY multivitamin Tablet 1 tab PO DAILY omega-3 fatty acids 500 mg capsule 500 mg PO DAILY ascorbate calcium (vitamin C) 500 mg tablet 500 mg PO DAILY atorvastatin 80 mg tablet 80 mg PO DAILY metoprolol tartrate 25 mg tablet 12.5 mg PO BID aspirin [Adult Low Dose Aspirin] 81 mg tablet,delayed release (DR/EC) 81 mg PO DAILY ferrous sulfate 325 mg (65 mg iron) tablet 325 mg PO DAILY Lantus U-100 Insulin 100 unit/mL solution 25 unit subcut QPM torsemide 20 mg tablet 20 mg PO DAILY ipratropium-albuterol 0.5 mg-3 mg(2.5 mg base)/3 mL solution for nebulization inhalation QID bupropion HCl 150 mg tablet sustained-release 12 hr 150 mg PO QAM (DME) nebulizers Mis See Rx Instructions .ROUTE Rx Instructions: As directed (DME) Oxygen Home Use Kit See Rx Instructions .ROUTE Rx Instructions: As directed famotidine 20 mg tablet 20 mg PO DAILY Print Language: Mozambican
[2024-10-16 11:46] VITALS: BP 120/76; PULSE 92; RESP 20; TEMP 36.6; O2SAT 98; BMI 32.1
--- NOTE | 2024-10-16 11:47 | ECG_ITS ---
Test Reason : NEW AFIB Blood Pressure : / mmHG Vent. Rate : 081 BPM Atrial Rate : 000 BPM P-R Int : 000 ms QRS Dur : 110 ms QT Int : 392 ms P-R-T Axes : 000 086 010 degrees QTc Int : 455 ms Atrial fibrillation Nonspecific ST abnormality Abnormal ECG When compared with ECG of 23-AUG-2019 07:07, Atrial fibrillation has replaced Sinus rhythm QRS axis Shifted right Nonspecific T wave abnormality now evident in Inferior leads T wave inversion no longer evident in Anterior leads Referred By: Sanam Billings Electronically Signed By:URI GARZA MD
[2024-10-16 12:14] LABS: MANUAL DIFF FLAG NO
[2024-10-16 12:17] LABS: Basophils Percent Auto 0.1 % (0-2); Eosinophils Absolute Auto 0.2 X10*3/uL (0.0-0.4); Eosinophils Percent Auto 2.1 % (0-4); Hematocrit 39.5 % (42.0-52.0); Imm Gran Abs Auto 0.04 X10*3/uL (0.00-0.03); Imm Gran Pct Auto 0.5 % (0.0-0.4); Lymphocytes Absolute Auto 1.2 X10*3/uL (1.2-4.9); Lymphocytes Percent Auto 15.3 % (20-40); Mean Corpuscular HGB Conc 35.4 g/dl (31.0-36.0); Mean Corpuscular Volume 90.4 fL (80.0-98.0); Mean Platelet Volume 9.9 fL (9.4-12.4); Monocytes Absolute Auto 0.6 X10*3/uL (0.1-1.2); Monocytes Percent Auto 7.8 % (2-11); Neutrophils Percent Auto 74.2 % (45-73); Platelet Count 158 X10*3/uL (160-400); Red Blood Count 4.37 X10*6/uL (4.60-5.80); Red Cell Distribution Width 12.8 % (11.0-16.0)
[2024-10-16 12:22] LABS: Prothrombin Time 11.5 SEC (10.9-12.4)
[2024-10-16 12:33] LABS: Alanine Aminotransferase 23 U/L (0-40); Albumin Level 3.7 g/dL (3.5-5.0); Alkaline Phosphatase 82 U/L (39-117); Anion Gap 14 (12-20); Aspartate Amino Transferase 25 U/L (5-37); Bilirubin Total 0.5 mg/dL (0.0-1.0); Blood Urea Nitrogen 36 mg/dL (9-16); Calcium 9.7 mg/dL (8.4-10.2); Carbon Dioxide 27 mmol/L (22-29); Chloride 104 mmol/L (96-108); Creatinine Clr Calc Pharmacy 36.2; Estimated Glomerular Filt Rate 34; Glucose Random 216 mg/dL (60-115); Magnesium 2.2 mg/dL (1.6-2.6); Potassium 4.4 mmol/L (3.3-5.1); Sodium 141 mmol/L (135-145); Total Protein 7.1 g/dL (6.5-8.0)
--- NOTE | 2024-10-16 12:33 | PC.NURSE ---
patient states he went to his pcp for feeling lethargic and sob. patient in ED wears 3lNC, on tele monitor rate controlled afib 80-90s
[2024-10-16 12:38] LABS: B Type Natriuretic Peptide 667 pg/mL (<100)
[2024-10-16 12:40] LABS: Troponin-I High Sensitivity 10.9 ng/L (<3.5-35.0)
[2024-10-16 12:56] LABS: Influenza A PCR NEGATIVE (Negative); Influenza B PCR NEGATIVE (Negative); Resp Syncy Virus RNA Qual PCR NEGATIVE (Negative); SARS COV2 PCR INHOUSE NEGATIVE (Negative)
--- NOTE | 2024-10-16 13:46 | PC.NURSE ---
patient getting bedside echo
[2024-10-16] MEDS: Apixaban 2.5 MG TABLET PO (14:17)
[2024-10-16 14:24] VITALS: BP 127/67; PULSE 63; RESP 20; TEMP 36.4; O2SAT 98
--- NOTE | 2024-10-16 14:38 | PM.IMHP ---
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 Earlier today patient was at routine wellness check and PCP's office (follows with Dr. Palmer) with noted to be in AFib. Patient reports has been experiencing SOB, fatigue, weakness, and light headedness since yesterday. Denies palpitations, chest pain/pressure. Patient reports he ?just knew something was off?. Patient reports has had similar episodes in the past of feeling fatigued, short of breath, and weak. Reports was noted to have been in and out of AFib immediately after CABG in 2019, though never started on medications. Most recently patient notes in July and August he likewise felt fatigued and weak, and was oxygen dependent for 1.5 months before finally feeling better. Patient denies cough, orthopnea, or lower leg edema. No fever, chills, nausea, vomiting, abdominal pain. Of note, patient reports a long history of right sided epistaxis. Patient experiences 10+ episodes yearly of difficult to control nosebleeds. ? In the ED pt's vitals stable and WNL. Labs were significant for BNP 667, otherwise grossly unremarkable and around baseline for patient. No leukocytosis. Stable H&H. No significant electrolyte abnormalities. Creatinine 1.91, at baseline. Hepatic function WNL. Troponin WNL at 10.9. Tested negative for flu, RSV, COVID. CXR showed no acute abnormality. EKG demonstrated atrial fibrillation with nonspecific ST abnormalities. Pt was treated with Eliquis 2.5 mg. Pt will be admitted to the hospital under observation for treatment and further evaluation of symptomatic new onset AFib. Review of Systems Review of Systems: Negative except for that which is stated in the [facility] Medical History Hypoxia Pulmonary nodules Chronic restrictive lung disease Chronic respiratory failure Pulmonary fibrosis Asbestosis Family History Mother Ovarian cancer Father Heart attack Brother Heart attack Sister Diabetes Surgical History History of open heart surgery Social History Alcohol intake: former Year quit: 1989 Patient Tobacco Use Status: Former Tobacco user Tobacco use type: Cigarette Years Smoked: 8 Years Advance Directives: No Advance Directives Information Provided: Yes Do you have a plan to hurt others: No Plan Meds Allergies Allergy/AdvReac Type Severity Reaction Status Date / Time No Known Allergies Allergy Verified 10/16/24 11:47 [No Known Allergies*] Home Medications ?Medication ?Instructions ?Recorded ?Confirmed ?Last Taken ?Type ascorbate calcium (vitamin C) 500 500 mg PO DAILY 12/24/20 08/04/21 Unknown History mg tablet aspirin 81 mg tablet,delayed 81 mg PO DAILY 12/24/20 08/04/21 Unknown History release (Adult Low Dose Aspirin) atorvastatin 80 mg tablet 80 mg PO DAILY 12/24/20 08/04/21 Unknown History ferrous sulfate 325 mg (65 mg 325 mg PO DAILY 12/24/20 08/04/21 Unknown History iron) tablet metoprolol tartrate 25 mg tablet 12.5 mg PO BID 12/24/20 08/04/21 Unknown History multivitamin 1 tab PO DAILY 12/24/20 08/04/21 Unknown History omega-3 fatty acids 500 mg capsule 500 mg PO DAILY 12/24/20 08/04/21 Unknown History sertraline 100 mg tablet 200 mg PO DAILY 12/24/20 08/04/21 Unknown History torsemide 20 mg tablet 20 mg PO DAILY 01/04/21 08/04/21 Unknown History insulin glargine 100 unit/mL 25 unit subcut QPM 05/24/22 Unknown History subcutaneous solution (Lantus U-100 Insulin) ipratropium 0.5 mg-albuterol 3 mg ml inhalation QID 05/24/22 Unknown History (2.5 mg base)/3 mL nebulization soln bupropion HCl 150 mg tablet,12 hr 150 mg PO QAM 11/14/22 Unknown History sustained-release Oxygen Home Use 12/08/22 Unknown History nebulizers 12/08/22 Unknown History famotidine 20 mg tablet 20 mg PO DAILY 02/07/24 Unknown History Physical Exam Vital Signs and Narrative: Vital Signs: Last Vital Signs Temp 97.5 F 10/16/24 14:24 Pulse 63 10/16/24 14:24 Resp 20 10/16/24 14:24 BP 127/67 10/16/24 14:24 Pulse Ox 98 10/16/24 14:24 O2 Del Method Room Air 10/16/24 14:24 Oxygen Flow Rate 3 10/16/24 11:46 BMI result Body Mass Index 32.1 General: AOx3, no acute distress Resp: CTA bilaterally CVS: S1, S2, regular rate and rhythm, + systolic murmur heard at right sternal border GI: +BS, NT, no distention Skin: Warm, dry Neuro: Cranial nerves II-XII grossly intact bilaterally. Motor grossly intact bilaterally Extremities: No edema, patient with compression stocks on Psych: Appropriate affect Results Labs 10/16/24 12:09 10/16/24 12:09 Labs: Laboratory Results - last 24 hr 10/16/24 12:09 MCV 90.4 MCH 32.0 MCHC 35.4 RDW 12.8 Plt Count 158 L MPV 9.9 Immature Gran % (Auto) 0.5 H Neut % (Auto) 74.2 H Lymph % (Auto) 15.3 L [place] % (Auto) 7.8 Eos % (Auto) 2.1 Baso % (Auto) 0.1 Lymph # (Auto) 1.2 [place] # (Auto) 0.6 Eos # (Auto) 0.2 Baso # (Auto) 0.0 Abs Immat Gran (auto) 0.04 H Absolute Neuts (auto) 6.0 Absolute Nucleated RBC 0.000 Nucleated RBC % (auto) 0.0 PT 11.5 INR 1.0 Anion Gap 14 Estim Creat Clear Calc 36.2 Estimated GFR 34 Random Glucose 216 H Calcium 9.7 D Magnesium 2.2 Total Bilirubin 0.5 AST 25 ALT 23 Alkaline Phosphatase 82 Troponin I High Sens 10.9 B-Natriuretic Peptide 667 H Total Protein 7.1 Albumin 3.7 Influenza Type A (PCR) NEGATIVE Influenza Type B (PCR) NEGATIVE RSV RNA Qual (PCR) NEGATIVE SARS-CoV-2 RNA (RT-PCR) NEGATIVE Assessment and Plan (1) Atrial fibrillation, new onset: Status: Acute Plan Pt is an 79-year-old male with a PMH significant for COPD, 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 Pt will be admitted to the hospital under observation for treatment and further evaluation of symptomatic new onset AFib. Symptomatic new onset AFib Patient noted to be in AFib at PCP wellness visit this afternoon Patient has been feeling SOB, fatigued, lightheaded since yesterday Has had similar intermittent episodes since CABG in 2019 Apparently was noted to be in AFib on telemetry after surgery, though not on treatment Will start on apixaban 2.5 mg p.o. b.i.d. Echocardiogram Cardiology consult Monitor on telemetry Hx of right-sided epistaxis 10+ episodes yearly, bleeding sometimes very difficult to control Patient started on Eliquis Monitor for nosebleeds Should follow up outpatient with ENT for evaluation/treatment CAD/HLD Continue aspirin, statin Insulin-dependent type 2 diabetes Sliding-scale insulin, Lantus Diabetic diet HFpEF Not in acute exacerbation Continue metoprolol, torsemide Mood disorder Continue home mood stabilizers DNR/DNI, verified with pt and at bedside Attending:?Dr. Patel DVT Prophylaxis: On Eliquis Due to patient's significant cardiac history including severe aortic stenosis, pt will be admitted to the hospital under observation for treatment and further evaluation of symptomatic new onset AFib requiring close cardiac monitoring and Cardiology consult. Quality Stroke Does the patient have a stroke diagnosis?: No VTE Prior VTE?: No VTE Risk Level:: Medical - moderate - high VTE Device Contraindication: Treatment Not Indicated VTE Drug Contraindication: N/A - Med Ordered
--- NOTE | 2024-10-16 17:00 | CA_ITS ---
Transthoracic Echocardiogram Patient (Last, First, Middle): Dave Tran D Gender: Male Date of : 1945 Age: 79 Procedure Date: 10/16/2024 Procedure Type: Transthoracic Echocardiogram Location: ER Height: 177.8 cm Weight: 101.61 kg BSA: 2.19 m2 Heart Rate: 63 bpm BP: 97 / 60 mmHg Equipment Man: Referring MD: Crispin Villafana MD Secondary Art Teacher: Charles Marino MD Symptoms: Severe Study Quality: Fair ECG Rhythm: Sinus Conclusions: - 1. Low normal LV ejection fraction 50-55% with mild LVH with elevated filling pressures 2. At least moderately dilated left atrium 3. Moderately severe aortic stenosis, paradoxical low-flow based on gradients obtained today, could be underestimated 4. Normal RV systolic pressure 5. Mildly dilated ascending aorta with moderate atherosclerotic changes Findings Left Ventricle Normal left ventricular cavity size. There is mildly increased left ventricular wall thickness. The left ventricular systolic function is low normal. The visually estimated ejection fraction is between 50-55%. Spectral Doppler is indicative of an impaired relaxation filling pattern. Elevated filling pressures. E/E prime ratio is >15, consistent with elevated filling pressures. Right Ventricle Normal right ventricular cavity size. There is low normal right ventricular systolic function. Atria The left atrium is moderately dilated. Interatrial shunt cannot be excluded. The right atrium is likely dilated. Aortic Valve There is moderate calcification of the aortic valve. There is moderate thickening of the aortic valve. There is moderate to severe aortic valve stenosis. the aortic stenosis by criteria appears to be moderately severe with mean gradient of 19 mm Hg compared to prior echocardiogram mean gradient of 24 mm Hg this is lower. Could be underestimated. Clinical correlation suggested Mitral Valve There is mild anterior and moderate posterior mitral leaflet thickening. There is mild mitral annular calcification. There is trace mitral valve regurgitation. There is no mitral valve stenosis. Pulmonic Valve The pulmonic valve was not well visualized. Tricuspid Valve Likely normal tricuspid valve structure and function. There is trace tricuspid valve regurgitation. The right ventricular systolic pressure is normal. The right ventricular systolic pressure is 14 mmHg. Normal right atrial pressure. There is no evidence of pulmonary hypertension. Great Vessels The pulmonary artery was not well visualized. There is mild dilatation of the ascending aorta. Moderate plaque is seen in the sino tubular ridge. Venous The inferior vena cava is normal in size and collapses greater than 50% with inspiration. Pericardium/Pleural There is no evidence of pericardial effusion. Prior Study Comparison Changes noted compared to prior study dated: 01/22/2024. aortic stenosis does not appear to be severe on this study, aortic valve gradients could be underestimated Measurements 2D Linear Measurements IVSd: 1.26 0.6-0.9/0.6-1.0 cm LVIDd: 4.00 3.9-5.3/4.2-5.9 cm LVIDd Index: 1.83 2.4-3.2/2.2-3.1 cm/m2 LVIDs: 2.81 2.0-3.6 cm LVPWd: 1.22 0.7-1.1 cm LA Diam: 3.90 2.7-3.8/3.0-4.0 cm LAIDs Index: 1.78 1.5-2.3 cm/m2 LV Mass: 216.42 67-162/88-224 g LV Mass Index: 98.82 43-95/49-115 g/m2 LVOT Diam: 1.90 3.0+(-)1.3 cm 2D Systolic Function EF 4C: 62.10 >55% EF 2C: 30.70 >55% EF BiP: 50.30 >55% Mitral Valve MV VTI: 0.39 MV Pk [place]: 0.99 MV Mn [place]: 0.58 MV Pk Grad: 4.00 MV Mn Grad: 2.00 MV Pk E: 0.93 MV PK A: 0.96 MV Decel Time: 345.00 E/A: 1.00 E'Lateral: 5.33 E'Medial: 4.57 E/E' Med: 20.40 E/E' Lat: 17.50 PHT: 101.00 MVA PHT: 2.18 MVA Continuity: 1.53 Decel [place]: 2.71 Aortic Valve AoV Pk [place]: 2.85 AoV Mn [place]: 1.99 AoV VTI: 0.65 AoV Pk Grad: 32.00 Aov Mn Grad: 19.00 MISTY Cont.VTI: 0.72 LVOT LVOT Pk [place]: 0.72 LVOT Mn [place]: 0.47 LVOT VTI: 0.21 LVOT Pk Grad: 2.00 LVOT Mn Grad: 1.00 LVOT Diam: 1.90 LVOT Area: 2.84 Diastolic Function MV Pk E: 0.93 MV Pk A: 0.96 E/A: 1.00 E'Medial: 4.57 E/E' Med: 20.40 E' Laterial: 5.33 E/E' Lat: 17.50 Right Ventricle TAPSE (mm): 20.90 Tricuspid Valve TR Pk [place]: 1.63 TR Pk Grad: 11.00 RA Press: 3.00 RVSP: 14.00 Great Vessels Aorta Sinus of Valsalva: 3.10 2.0-3.5 cm Ao Asc: 3.70 2.1-3.4 cm Pulmonary Valve PV Pk [place]: 0.88 Peak PV Grad: 3.00 Updated in Other Vendor System with Status of Final Charles Marino MD electronically signed on 10/16/2024 4:28:57 PM with status of Final
[2024-10-16 17:59] VITALS: BP 113/57; PULSE 62; RESP 20; TEMP 36.5; O2SAT 97
--- NOTE | 2024-10-16 18:40 | PHA.MEDREC ---
Pharmacy Consult ? Medication Reconciliation Pharmacy has completed the medication reconciliation.
[2024-10-16 21:06] LABS: Glucose, Whole Blood 236 mg/dL (60-115)
[2024-10-16] MEDS: Insulin Glargine,Hum.rec.anlog 100 UNIT/ML 10 ML VIAL 22 UNIT SUBCUT (21:14)
[2024-10-16] MEDS: Metoprolol Tartrate 12.5 MG HALFTAB PO (21:14)
[2024-10-16] MEDS: Insulin Lispro 100 UNIT/ML 3 ML VIAL SUBCUT (21:14)
[2024-10-16 21:16] VITALS: BP 117/63; PULSE 65; RESP 18; TEMP 36.5; O2SAT 96
[2024-10-16] MEDS: Melatonin 3 MG TABLET 6 MG PO (23:26)
[2024-10-17 01:21] VITALS: BP 110/56; PULSE 68; RESP 12; TEMP 36.3; O2SAT 97
--- OUTSIDE RECORDS SUMMARY | 2024-10-17 01:39 | XMS_ITS | Encounter Summary ---
Author Name [facility] [facility] [place] Organization [facility] [place] Address [address] [place] [id number] Care Team Providers Care Pulverizer Operator Name Role Phone JUANITA IBRCH Primary Care Provider Unavailabl e Insurance Providers: [...] Policy [place] [facility] [place] [facility] Nov 06, 2016 MEDICAR E SUPPLEM E [id number] Rao ODELL PATIENT MEDICARE (WNR) MEDICARE () PART A May 06, 2008 PART A [id number] [facility] Rao ODELL PATIENT MEDICARE (WNR) MEDICARE (M) PART B May 06, 2008 PART B [id number] Rao ODELL PATIENT MEDICARE (WNR) MEDICARE (M) PART A May 06, 2008 PART A [id number] Rao ODELL PATIENT MEDICARE (WNR) MEDICARE (M) PART B May 06, 2008 PART B [id number] CASSRao ICHAEL PATIENT Selected Encounter This section includes the information on record at [place] for the Encounter. Date/Time Encounter Type Encounter Description Reason Provider Source Mar 04, 2024 03:25 PM QNHP OL DIG ASSMT&MGMT 5-10 CLINICAL PHARMACY ICD-10-CM E11.65 Type [address] with [address] Encounter Template Text not used by [place] Assessments - Encounter Diagnoses This section includes the primary and secondary diagnoses documented for the Encounter. Date/Time Primary/Secondary Diagnosis Diagnosis Name Provider Source March 27, 2024 04:29 PM PRIMARY Type 2 diabetes mellitus with hyperglycemia [facility] Plan of Treatment: Future Appointments (+ 6 [...] 2024 10:00 AM AMBULATORY - MEDICINE [facility] Active, Pending, and Scheduled Orders [...] The data comes from all [place] treatment [facility]. Test Date/Time Test Type Test Details Facility Name Mar 04, 2024 12:00 AM Laboratory - Chemistry Order HEMOGLOBIN A1C PANEL BLOOD (LAV-BLOOD) [facility] Mar 04, 2024 12:00 AM Laboratory - Chemistry Order CREATININE (eGFR 2020) BLOOD (SST-SERUM) [facility] Encounter Notes: All associated encounter notes This section contains the clinical notes associated to the Encounter. Date/Time Encounter Note(s) Provider Source Mar 04, 2024 03:25 PM PHARMACY CONSULT: LOCAL TITLE: CONSULT REPORT/PRIOR AUTH FACILITY PADR STANDARD TITLE: PHARMACY CONSULT DATE OF NOTE: MAR 04, 2024@15:25 ENTRY DATE: MAR 04, 2024@15:25:25 AUTHOR: BRII LANE EXP COSIGNER: URGENCY: STATUS: COMPLETED The medical record has been reviewed with regard to this restricted drug request. Medication requested: SEMAGLUTIDE 0.25MG/0.375ML INJ PEN 3ML Medication indication: DM II Medical history relevant to this request: Pt is following with [facility] for management of diabetes. Pt is unable to use metformin due to renal function and was not able to tolerate empagliflozin. Pt with CVD/CKD and elevated avg glucose on CGM. BMI >30. Pt would benefit from GLP1 therapy. Pt without pancreatitis, personal/fhx MEN2 or MTC. Pt follows with nonVA Optometry and per his report, no retinopathy present. Non[facility] lab work: 01/17/24 SCr 1.84mg/dL eGFR 36 A1c 8% Alb/Cre Ratio: 7.4 Consult renewal at 12 months, must meet the following criteria: -- Documented continued need for secondary benefit in ASCVD or CKD AND at least one of the following: - At least a 0.8% reduction in A1c OR - At least 5% weight loss from baseline (before GLP-1 initiation) OR - Reduction in insulin doses with reduced incidence of hypoglycemia The request is APPROVED THROUGH 02/2025 - A documented therapeutic failure of the preferred formulary alternative(s) shea /celina/ Brii Lane, PharmD, [facility] Clinical Power Plant Operator Signed: 03/04/2024 15:[address] [facility]
--- OUTSIDE RECORDS SUMMARY | 2024-10-17 01:39 | XMS_ITS ---
Author Name [facility] Organization [facility] Address [address] [place] [address] Care Team Providers Care Stair Builder Name Role Phone JUANITA BIRCH Primary Care [...] Nov 06, 2016 MEDICAR E SUPPLEM E [id number] FRANCISRao MARQUES PATIENT MEDICARE (WNR) MEDICARE () PART A May 06, 2008 PART A [id number] [facility] [phone] Rao ODELL PATIENT MEDICARE (WNR) MEDICARE (M) PART B May 06, 2008 PART B [id number] Rao ODELL PATIENT MEDICARE (WNR) MEDICARE (M) PART A May 06, 2008 PART A [id number] Rao ODELL PATIENT MEDICARE (WNR) MEDICARE (M) PART B May 06, 2008 PART B [id number] LAFFERRao Estrella PATIENT Selected Encounter This section includes the information on record at [place] for the Encounter. Date/Time Encounter Type Encounter Description Reason Pro vider Source April 04, 2024 01:28 PM Outpatient Encounter ADMIN PAT ACTIVTIES (HENRRY) [facility] Encounter Template Text not used by [place] Plan of Treatment: Future Appointments (+ 6 months) and Future Tests (+/- 45 days) The Plan of Treatment section includes future care activities for the patient from all [place] treatmentfacilities. This section includes future appointments and future orders which are active, pending or scheduled. Future Appointments This section includes appointments that were scheduled to occur 6 months from the date of the Encounter, up to a maximum of 20 appointments. The data comes from all [place] treatment facilities. Appointment Date/Time Appointment Type Appointme nt Facility Name Apr 15, 2024 09:00 AM [facility]ATORY - [facility] Sep 03, 2024 10:00 AM [facility] Active, Pending, and [...] of theEncounter. The data comes from all [place] treatment facilities. Test Date/Time Test Type Test Details Facility Name Mar 04, 2024 12:00 AM Laboratory - Chemistry Order HEMOGLOBIN A1C PANEL BLOOD (LAV-BLOOD) [facility] Mar 04, 2024 12:00 AM Laboratory - Chemistry Order CREATININE (eGFR 2020) BLOOD (SST-SERUM) [facility] Encounter Notes: All associated encounter notes This section contains the clinical notes associated to the Encounter. Date/Time Encounter Note(s) Provider Source April 04, 2024 01:28 PM PHARMACY NOTE: LOCAL TITLE: V1 PHARMACY CUSTOMER CARE MEDICATION RENEWAL STANDARD TITLE: PHARMACY NOTE DATE OF NOTE: APRIL 04, 2024@13:28 ENTRY DATE: APRIL 04, 2024@13:28:20 AUTHOR: NATALIIA PEREIRA COSIGNER: URGENCY: STATUS: COMPLETED Date: March Division: [facility] referred by Pharmacy Call Center for medication renewal: Non-controlled/maintena nce medication Medications requested: [id number] NEEDLE,PEN 31G,8MM Defer to primary care provider To be mailed . Please review and renew if appropriate. *This note was generated by [facility] Pharmacy Customer Care. If you have any questions or need assistance, do not contact this author. Please refer all questions to your local, on-site pharmacy departments. /celina/ NATALIIA PEREIRA CPhT Green Pipefitter, [place]/Pharmacy Customer Care Signed: 04/04/2024 13:28 Receipt Acknowledged By: 04/04/2024 14:16 /celina/ Ophelia Sheldon RN Registered Nurse (RN) 04/04/2024 13:30 /celina/ JUANITA BIRCH PA-C STAFF PHYSICIAN COLLECTOR OF [employer] NATALIIA PEREIRA [place] [facility]
--- OUTSIDE RECORDS SUMMARY | 2024-10-17 01:39 | XMS_ITS | Encounter Summary ---
Author Name [facility] [place] Organization [facility] [place] Address [address] [place] [phone] Care Team Providers Care Live In Companion Name Role Phone JUANITA BIRCH Primary Care [...] Policy [place] [facility] Nov [facility], 2016 MEDICAR E SUPPLEM E [id number] Rao ODELL PATIENT MEDICARE (WNR) MEDICARE (M) PART B May 06, 2008 PART B [id number] [facility] Rao ODELL PATIENT MEDICARE (WNR) MEDICARE (M) PART A May 06, 2008 PART A [id number] Rao ODELL PATIENT MEDICARE (WNR) MEDICARE (M) PART A May 06, 2008 PART A [id number] Rao ODELL PATIENT MEDICARE (WNR) MEDICARE (M) PART B May 06, 2008 PART B [id number] [phone] Rao ODELL PATIENT Selected Encounter This section includes the information on record at [place] for the Encounter. Date/Time Encounter Type Encounter Description Reason Pro vider Source Jan 22, 2024 12:00 AM Outpatient Encounter EVENT (HISTORICAL) [facility] Encounter Template Text not used by [place] Plan of Treatment: Future Appointments (+ 6 [...] The data comes from all [place] treatment [facility]. Appointment Date/Time Appointment Type Appointme nt Facility Name Jan 30, 2024 09:00 AM AMBULATORY - MEDICINE [facility] Feb 07, 2024 09:30 AM AMBULATORY - MEDICINE [facility] Mar 04, 2024 09:00 AM AMBULATORY - MEDICINE [facility] Apr 15, 2024 09:00 AM AMBULATORY - MEDICINE [facility] Active, Pending, and Scheduled Orders [...] from all [facility]. Test Date/Time Test Type Test Details Facility Name Dec 08, 2023 12:00 AM Laboratory - Chemistry Order MICROALBUMIN CREATININE RATIO PANEL URINE (RANDOM) [facility] Dec 08, 2023 12:00 AM Laboratory - Chemistry Order URINALYSIS URINE [facility] Dec 08, 2023 12:00 AM Laboratory - Chemistry Order CBC AND DIFF (AUTO) BLOOD (LAV-BLOOD) [facility] Dec 08, 2023 12:00 AM Laboratory - Chemistry Order HEMOGLOBIN A1C PANEL BLOOD (LAV-BLOOD) [facility] Dec 08, 2023 12:00 AM Laboratory - Chemistry Order LIPID PANEL FASTING BLOOD (SST-SERUM) [facility] Dec 08, 2023 12:00 AM Laboratory - Chemistry Order BASIC METABOLIC PANEL (fasting) BLOOD (SST-SERUM) [facility] Dec 08, 2023 12:00 AM Laboratory - Chemistry Order LIVER FUNCTION BLOOD (SST-SERUM) [facility] Dec 08, 2023 12:00 AM Laboratory - Chemistry Order CALCIUM BLOOD (SST-SERUM) [facility] Mar 04, 2024 12:00 AM Laboratory - Chemistry Order HEMOGLOBIN A1C PANEL BLOOD (LAV-BLOOD) [facility] Mar 04, 2024 12:00 AM Laboratory - Chemistry Order CREATININE (eGFR 2020) BLOOD (SST-SERUM) [facility] Encounter Notes: All associated encounter notes This section contains the clinical notes associated to the Encounter. Date/Time Encounter Note(s) Provider Source Jan 22, 2024 12:00 AM NONVA NOTE: LOCAL TITLE: NON-[place] OUTPATIENT NOTES STANDARD TITLE: NONVA NOTE DATE OF NOTE: JAN 22, 2024 ENTRY DATE: FEB 16, 2024@12:43:36 AUTHOR: ROXANNE GARCIA EXP COSIGNER: URGENCY: STATUS: COMPLETED VistA Imaging - Scanned Document SCANNED DOCUMENT SIGNATURE NOT REQUIRED Electronically Filed: 02/16/2024 by: ROXANNE GOVEA [facility]
--- OUTSIDE RECORDS SUMMARY | 2024-10-17 01:39 | XMS_ITS | Continuity of Care Document ---
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 It does not include entries that were removed or entered in error. Problem Status Onset Date Problem Type Date of Resolution Comments Source Anxiety Active Condition [place] Asbestosis Active Condition May 29 018 Entered By: JUANITA BIRCH Comment: Dx NOV 2012 via Private PULMO: CXR, CT Thorax Done 2012 Entered By: JUANITA BIRCH Comment: Dx NOV [address] [facility] Entered By: JUANITA BIRCH Comment: early scarring note but appeared not to beOct 2012 Entered By: JUANITA BIRCH Comment: progressive in nature back 2012 Entered By: JUANITA BIRCH Comment: Lung Bx done Via Cardi-Thoracic Surg [facility] (Dr Smith)Aug 20, 2013 Entered By: JUANITA BIRCH [facility] Aug Entered By: JUANITA BIRCH Comment: Attributable to Svc [place] 1960'sOct 2012 Entered By: JUANITA BIRCH Comment: no Lung CA as of Aug Entered By: JUANITA BIRCH Comment: Next Pulmo Eval NOV 29 [place] Benign hypertension Active Condition SP [facility] Benign prostatic hyperplasia Active Condition Aug 20, 2013 Entered By: JUANITA BIRCH Comment: TURP NOV 2012; no Prostate CA [place] Cataract Active Condition Aug 20 Entered By: JUANITA BIRCH Comment: Surg OU 2012 [place] Chronic kidney disease stage 3 Active Condition Sep 03, 2024 Entered By: JUANITA BIRCH Comment: eGFR 31 in Aug Entered By: JUANITA BIRCH Comment: Diabetic Nephropathy [place] Coronary artery disease Active Condition Oct 09, 2019 Entered By: JUANITA BIRCH Comment: CABG (3 vessel by-pass) ) [facility] AUG 24De2018 Entered By: JUANITA BIRCH Comment: S&S Suspicious for ACS During Course of Pulmo Eval for Asbestosis [place] Diabetes mellitus Active Condition 2019 Entered By: JUANITA BIRCH Comment: no DR as of NOV 25 [place] Exposure to potentially hazardous substance Active Condition Sep 05, 2023 Entered By: JUANITA BIRCH Comment: Asbestosis [place] Heart murmur Active Condition Apr 28, 2016 Entered By: JUANITA BIRCH Comment: Functional ?; no Sx [place] History of colonoscopy Active Condition Aug 20, 2013 Entered By: JUANITA BIRCH Comment: Last Colonoscopy 2011; no CRC or PolypsAug 20, 2013 Entered By: JUANITA BIRCH Comment: done [facility]; repeat 2018 Entered By: JUANITA BIRCH Comment: Last Colonoscopy 2018; Neg CRC; Repeat prn x [place] Hypercholesterolemia Active Condition Aug 20, 2013 Entered By: JUANITA BIRCH Comment: cannot tolerate Statin's; on Zetia [place] Indigestion Active Condition [place] Peripheral vascular disease Active Condition Sep 08, 2022 Entered By: JUANITA BIRCH Comment: Stasis Derm Both LE's [place] Diagnosis: ICD-10-CM E11.65 Type 2 diabetes mellitus with hyperglycemia Active Diagnosis [place] Diagnosis: ICD-10-CM I73.9 Peripheral vascular disease, unspecified Active Diagnosis [place] Diagnosis: ICD-10-CM N18.30 Chronic kidney disease, stage 3 unspecified Active Diagnosis [place] Medications Combined list of outpatient medications from 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Medications provided include 1) outpatient medications from the last 15 months, and 2) patient-reported medications. Medication Details Route Status Patient Instructions Prescription Expires Prescription Number Last Dispense Date Ordering Provider Order Date Order Qty Source ASPIRIN 81MG TAB,EC TAKE ONE TABLET BY MOUTH ONCE DAILY ORAL ACTIVE KYRA BIRCH 2021 [facility] IELD ATORVASTATI N TAB TAKE LIPITOR BY MOUTH ONCE DAILY ORAL ACTIVE KYRA BIRCH 2019 [facility] IELD BUPROPION HCL 150MG 24HR TAB,SA TAKE ONE TABLET BY MOUTH ONCE DAILY ORAL ACTIVE KYRA BIRCH 2021 [facility] IELD EMPAGLIFLOZ IN 10MG TAB TAKE ONE TABLET BY MOUTH ONCE DAILY ORAL DISCONT INUED BY PETE R 02/05/2025 [id number] KYRA BIRCH EDUARDO 2023 90 IEITZEL EZETIMIBE 10MG TAB TAKE ONE TABLET BY MOUTH EVERY DAY ORAL ACTIVE KYRA BIRCH EDUARDO 2012 IELD FAMOTIDINE 20MG TAB TAKE ONE TABLET BY MOUTH EVERY DAY NEEDED ORAL ACTIVE KYRA BIRCH EDUARDO 2012 [facility] IELD FUROSEMIDE TAB TAKE LASIX BY MOUTH ONCE DAILY ORAL ACTIVE KYRA BIRCH EDUARDO 2019 IELD INSULIN,GLA RGINE-YFGN 100UNIT/ML INJ PEN,3ML INJECT 30 UNITS SUBCUTAN EOUSLY EVERY EVENING FOR DIABETES SUBCUT ANEOUS ACTIVE 10/09/2025 [id number] 4 ANTHONY TEJEDA 2023 5 IELD INSULIN,GLA RGINE-YFGN 100UNIT/ML INJ PEN,3ML INJECT 28 UNITS SUBCUTAN EOUSLY EVERY EVENING FOR DIABETES SUBCUT ANEOUS DISCONT INUED (EDIT) 12/13/2024 [id number] 4 ANTHONY TEJEDA 2023 10 IELD INSULIN,GLA RGINE-YFGN 100UNIT/ML INJ PEN,3ML INJECT 25 UNITS SUBCUTAN EOUSLY EVERY EVENING - SAME LANTUS SUBCUT ANEOUS DISCONT INUED (EDIT) 08/25/2024 [id number] KYRA BIRCH EDUARDO 2022 5 IELD METOPROLOL TARTRATE 25MG TAB TAKE ONE-HALF TABLET BY MOUTH TWICE DAILY ORAL ACTIVE KYRA BIRCH EDUARDO 2019 IELD SEMAGLUTIDE 0.25MG/0.37 5ML INJ,SOLN,PE N,3ML INJECT 0.25MG SUBCUTAN EOUSLY ONCE A WEEK FOR TYPE 2 DIABETES MELLITUS SUBCUT ANEOUS DISCONT INUED BY PETE R 04/03/2024 [id number] 4 ANTHONY TEJEDA 2023 1 IELD SERTRALINE HCL 100MG TAB TAKE TWO TABLETS BY MOUTH EVERY MORNING ORAL ACTIVE KYRA BIRCH EDUARDO 2012 [facility] IELD Allergies, Adverse Reactions, Alerts Combined list [...] Site Reaction Lot Number CVX Code Drug Barrel Polisher Inside Status Comments Source INFLUENZA, UNSPECIFIED FORMULATION 2022 [...] Reference Range Date Interpretation Specimen Comments Source CALCIUM CALCIUM [MASS/VOLUM E] IN SERUM OR PLASMA 9.1 mg/dL 8.5 - 10.2 09/02 Specimen Type: SERUM No comment entered. Ordering Provider: JUANITA BIRCH Report Released Date/Time: Aug 20, 2024 02:24 PM Reporting Lab: [facility] [place] [facility] [address] [facility] [address] Performing Lab: [facility] TRN [facility]ITALCH[facility] [address] [address] [place] CBC AND DIFF (AUTO) LEUKOCYTES [#/VOLUME] IN BLOOD BY AUTOMATED COUNT 5.39 10*3/u L 4.50 - 11.00 09/02 Specimen Type: BLOOD No comment entered. Ordering Provider: JUANITA BIRCH Report Released Date/Time: Aug 20, 2024 02:24 PM Reporting Lab: [facility] [place] [address] [address] Performing Lab: [facility]ITALRFLOWERS HOSPITALTRN [facility]ITALCH[facility]ETS [address] [address] [place] CBC AND DIFF (AUTO) ERYTHROCYTE S [#/VOLUME] IN BLOOD BY AUTOMATED COUNT 4.07 10*6/u L 4.23 - 5.66 09/02 L Specimen Type: BLOOD No comment entered. Ordering Provider: JUANITA BIRCH Report Released Date/Time: Aug 20, 2024 02:24 PM Reporting Lab: [facility] [place] [place] [address] [address] Performing Lab: [facility]ITALRFLOWERS HOSPITALTRN [place] [address] [address] [place] CBC AND DIFF (AUTO) HEMOGLOBIN [MASS/VOLUM E] IN BLOOD 12.9 g/dL 12.8 - 17 09/02 Specimen Type: BLOOD No comment entered. Ordering Provider: JUANITA BIRCH Report Released Date/Time: Aug 20, 2024 02:24 PM Reporting Lab: [facility]ITALRFLOWERS HOSPITALTRN [place] [address] [address] Performing Lab: [facility]ITALRTAN[facility] HOSPITALUSE[address] [address] [place] CBC AND DIFF (AUTO) HEMATOCRIT [VOLUME FRACTION] OF BLOOD BY AUTOMATED COUNT 37.6 39.2 - 50.4 09/02 L Specimen Type: BLOOD No comment entered. Ordering Provider: JUANITA BIRCH Report Released Date/Time: Aug 20, 2024 02:24 PM Reporting Lab: [facility] [place] [facility] [address] [facility] [address] Performing Lab: [facility]ITALRFLOWERS HOSPITALTRN [facility] HOSPITALUSETS [facility] [address] [facility] [address] [place] CBC AND DIFF (AUTO) MCV [ENTITIC VOLUME] BY AUTOMATED COUNT 92.4 fL 82 - 99 09/02 Specimen Type: BLOOD No comment entered. Ordering Provider: JUANITA BIRCH Report Released Date/Time: Aug 20, 2024 02:24 PM Reporting Lab: [facility]ITALRL [facility]N [place] [facility] [address] [facility] [address] Performing Lab: [facility]ITALRTAN[facility] [address] [address] [place] CBC AND DIFF (AUTO) MCHC [MASS/VOLUM E] BY AUTOMATED COUNT 34.3 g/dL 30.8 - 35.1 09/02 Specimen Type: BLOOD No comment entered. Ordering Provider: JUANITA BIRCH Report Released Date/Time: Aug 20, 2024 02:24 PM Reporting Lab: [facility]ITALRL [place] [place] [address] [address] Performing Lab: [facility]ITALRTAN[facility] HOSPITALUSE[address] [address] [place] CBC AND DIFF (AUTO) PLATELETS [#/VOLUME] IN BLOOD BY AUTOMATED COUNT 164 10*3/u L 140 - 360 09/02 Specimen Type: BLOOD No comment entered. Ordering Provider: JUANITA BIRCH Report Released Date/Time: Aug 20, 2024 02:24 PM Reporting Lab: [facility]OSPITALRFLOWERS HOSPITALTRN MASSUSE[address] [address] Performing Lab: [facility]ITALRTAN[facility] HOSPITALUSE[address] [address] [place] CBC AND DIFF (AUTO) ERYTHROCYTE DISTRIBUTIO N WIDTH [RATIO] BY AUTOMATED COUNT 13.0 12.0 - 16.0 09/02 Specimen Type: BLOOD No comment entered. Ordering Provider: JUANITA BIRCH Report Released Date/Time: Aug 20, 2024 02:24 PM Reporting Lab: [facility]ITALRT[facility] [address] [address] Performing Lab: [facility] [place] [facility] [address] [facility] [address] [place] CBC AND DIFF (AUTO) MONOCYTES [#/VOLUME] IN BLOOD BY AUTOMATED COUNT 0.49 10*3/u L 0.30 - 1.10 09/02 Specimen Type: BLOOD No comment entered. Ordering Provider: JUANITA BIRCH Report Released Date/Time: Aug 20, 2024 02:24 PM Reporting Lab: [facility] [place] [address] [address] Performing Lab: [facility] [place] [address] [address] [place] CBC AND DIFF (AUTO) MCH [ENTITIC MASS] BY AUTOMATED COUNT 31.7 pg 26.2 - 32.6 09/02 Specimen Type: BLOOD No comment entered. Ordering Provider: JUANITA BIRCH Report Released Date/Time: Aug 20, 2024 02:24 PM Reporting Lab: [facility] [place] [address] [address] Performing Lab: [facility] [place] [address] [address] [place] CBC AND DIFF (AUTO) NEUTROPHILS /100 LEUKOCYTES IN BLOOD BY AUTOMATED COUNT 71.1 43.7 - 75.8 09/02 Specimen Type: BLOOD No comment entered. Ordering Provider: JUANITA BIRCH Report Released Date/Time: Aug 20, 2024 02:24 PM Reporting Lab: [facility] [place] [address] [address] Performing Lab: [facility] [place] [address] [address] [place] CBC AND DIFF (AUTO) LYMPHOCYTES /100 LEUKOCYTES IN BLOOD BY AUTOMATED COUNT 16.1 14.0 - 42.3 09/02 Specimen Type: BLOOD No comment entered. Ordering Provider: JUANITA BIRCH Report Released Date/Time: Aug 20, 2024 02:24 PM Reporting Lab: [facility] [place] [address] [address] Performing Lab: [facility] [address] [address] [place] CBC AND DIFF (AUTO) MONOCYTES/1 00 LEUKOCYTES IN BLOOD BY AUTOMATED COUNT 9.1 5.1 - 13.7 09/02 Specimen Type: BLOOD No comment entered. Ordering Provider: JUANITA BIRCH Report Released Date/Time: Aug 20, 2024 02:24 PM Reporting Lab: [facility]ITALR WSTRN [facility] HOSPITALUSETS [address] [address] Performing Lab: [facility]OSPITALUSETS [address] [address] [place] CBC AND DIFF (AUTO) EOSINOPHILS /100 LEUKOCYTES IN BLOOD BY AUTOMATED COUNT 3.5 0.4 - 6.8 09/02 Specimen Type: BLOOD No comment entered. Ordering Provider: JUANITA BIRCH Report Released Date/Time: Aug 20, 2024 02:24 PM Reporting Lab: [facility]OSPITALRFLOWERS HOSPITALTRN [address] [address] Performing Lab: [facility]OSPITALRL TRN [facility] MARK[facility] HOSPITALUSETS [address] [address] [place] CBC AND DIFF (AUTO) BASOPHILS/1 00 LEUKOCYTES IN BLOOD BY AUTOMATED COUNT 0.0 0.1 - 2.0 09/02 L Specimen Type: BLOOD No comment entered. Ordering Provider: JUANITA BIRCH Report Released Date/Time: Aug 20, 2024 02:24 PM Reporting Lab: [facility]ITALRFLOWERS HOSPITALTRN [facility] HOSPITALUSETS [address] [address] Performing Lab: [facility]ITALRFLOWERS HOSPITALTRN [facility] HOSPITALUSETS [address] [address] [place] CBC AND DIFF (AUTO) NEUTROPHILS [#/VOLUME] IN BLOOD BY AUTOMATED COUNT 3.83 10*3/u L 2.20 - 7.60 09/02 Specimen Type: BLOOD No comment entered. Ordering Provider: JUANITA BIRCH Report Released Date/Time: Aug 20, 2024 02:24 PM Reporting Lab: [facility]ITALR WSTRN [facility] HOSPITALUSETS [address] [address] Performing Lab: [facility]ITALRTAN[facility] HOSPITALUSE[address] [address] [place] CBC AND DIFF (AUTO) LYMPHOCYTES [#/VOLUME] IN BLOOD BY AUTOMATED COUNT 0.87 10*3/u L 1.00 - 3.20 09/02 L Specimen Type: BLOOD No comment entered. Ordering Provider: JUANITA BIRCH Report Released Date/Time: Aug 20, 2024 02:24 PM Reporting Lab: [facility]N [address] [address] Performing Lab: [facility]ITALN [address] [address] [place] CBC AND DIFF (AUTO) EOSINOPHILS [#/VOLUME] IN BLOOD BY AUTOMATED COUNT 0.19 10*3/u L 0.03 - 0.44 09/02 Specimen Type: BLOOD No comment entered. Ordering Provider: JUANITA BIRCH Report Released Date/Time: Aug 20, 2024 02:24 PM Reporting Lab: [facility]ITALN [address] [address] Performing Lab: [facility]ITALN [address] [address] [place] CBC AND DIFF (AUTO) BASOPHILS [#/VOLUME] IN BLOOD BY AUTOMATED COUNT 0.00 10*3/u L 0.01 - 0.13 09/02 L Specimen Type: BLOOD No comment entered. Ordering Provider: JUANITA BIRCH Report Released Date/Time: Aug 20, 2024 02:24 PM Reporting Lab: [facility]ITALN [address] [address] Performing Lab: [facility]ITALN [address] [address] [place] CBC AND DIFF (AUTO) IMMATURE GRANULOCYTE S/100 LEUKOCYTES IN BLOOD BY AUTOMATED COUNT 0.2 0.0 - 0.7 09/02 Specimen Type: BLOOD No comment entered. Ordering Provider: JUANITA BIRCH Report Released Date/Time: Aug 20, 2024 02:24 PM Reporting Lab: [address] [address] Performing Lab: [facility]N [address] [address] [place] CBC AND DIFF (AUTO) IMMATURE GRANULOCYTE S [#/VOLUME] IN BLOOD 0.01 10*3/u L 0.00 - 0.06 09/02 Specimen Type: BLOOD No comment entered. Ordering Provider: JUANITA BIRCH Report Released Date/Time: Aug 20, 2024 02:24 PM Reporting Lab: [address] [address] Performing Lab: [address] [address] [place] CBC AND DIFF (AUTO) NRBC % 0.0 0.0 - 0.0 09/02 Specimen Type: BLOOD No comment entered. Ordering Provider: JUANITA BIRCH Report Released Date/Time: Aug 20, 2024 02:24 PM Reporting Lab: [address] [address] Performing Lab: [address] [address] [place] CBC AND DIFF (AUTO) NRBC, ABS 0.00 10*3/u L 0.00 - 0.00 09/02 Specimen Type: BLOOD No comment entered. Ordering Provider: JUANITA BIRCH Report Released Date/Time: Aug 20, 2024 02:24 PM Reporting Lab: [address] [address] Performing Lab: [address] [address] [place] FERRITIN FERRITIN [MASS/VOLUM E] IN SERUM OR PLASMA 302 ng/mL 20 - 300 09/02 H Specimen Type: SERUM No comment entered. Ordering Provider: JUANITA BIRCH Report Released Date/Time: Aug 20, 2024 02:24 PM Reporting Lab: [address] [address] Performing Lab: [address] [address] [place] HEMOGLOBI N A1C PANEL HEMOGLOBIN A1C/HEMOGLO [...] Aug 20, 2024 02:24 PM Reporting Lab: [address] [address] Performing Lab: [address] [address] [place] LIPID PANEL FASTING CHOLESTEROL [MASS/VOLUM E] IN SERUM OR PLASMA 167 mg/dL 09/02 Specimen Type: SERUM No comment entered. Ordering Provider: JUANITA BIRCH Report Released Date/Time: Aug 20, 2024 02:24 PM Reporting Lab: [address] [address] Performing Lab: [address] [address] [place] LIPID PANEL FASTING TRIGLYCERID E [MASS/VOLUM E] IN SERUM OR PLASMA 102 mg/dL 0 - 150 09/02 Specimen Type: SERUM No comment entered. Ordering Provider: JUANITA BIRCH Report Released Date/Time: Aug 20, 2024 02:24 PM Reporting Lab: [address] [address] Performing Lab: [address] [address] [place] LIPID PANEL FASTING CHOLESTEROL IN LDL [MASS/VOLUM E] IN SERUM OR PLASMA BY CALCULATION 76 mg/dL 0 - 129 09/02 Specimen Type: SERUM No comment entered. Ordering Provider: JUANITA BIRCH Report Released Date/Time: Aug 20, 2024 02:24 PM Reporting Lab: [address] [address] Performing Lab: [facility] WSTRN [facility] HOSPITALUSETS [facility] [address] [address] [place] LIPID PANEL FASTING CHOLESTEROL .TOTAL/CHOL ESTEROL IN HDL [MASS RATIO] IN SERUM OR PLASMA 2.4 09/02 Specimen Type: SERUM No comment entered. Ordering Provider: JUANITA BIRCH Report Released Date/Time: Aug 20, 2024 02:24 PM Reporting Lab: [facility]N [facility]ITALUSECAR[facility] [address] [facility] [address] Performing Lab: [facility]ITALRTAN[facility]OSPITALUSECARTHAGE [facility]A [facility] [address] [facility] [address] [place] LIPID PANEL FASTING CHOLESTEROL IN HDL [MASS/VOLUM E] IN SERUM OR PLASMA 71 mg/dL 40 - 60 09/02 H Specimen Type: SERUM No comment entered. Ordering Provider: JUANITA BIRCH Report Released Date/Time: Aug 20, 2024 02:24 PM Reporting Lab: [facility]N [facility]OSPITALUSECARTHAGE [facility] [address] [facility] [address] Performing Lab: [facility]ITALN [facility] HOSPITALUSE[address] [address] [place] LIVER FUNCTION PROTEIN [MASS/VOLUM E] IN SERUM OR PLASMA 6.9 g/dL 6.0 - 8.3 09/02 Specimen Type: SERUM No comment entered. Ordering Provider: JUANITA BIRCH Report Released Date/Time: Aug 20, 2024 02:24 PM Reporting Lab: [facility]N [facility]PITALUSECARTHAGE [facility] [address] [facility] [address] Performing Lab: [facility]ITALN [facility] HOSPITALUSE[address] [address] [place] LIVER FUNCTION ALBUMIN [MASS/VOLUM E] IN SERUM OR PLASMA 3.6 g/dL 3.5 - 5.0 09/02 Specimen Type: SERUM No comment entered. Ordering Provider: JUANITA BIRCH Report Released Date/Time: Aug 20, 2024 02:24 PM Reporting Lab: [facility]ITALRTAN[facility]ITALUSE[address] [address] Performing Lab: [facility]N [facility]OSPITALUSE[address] [address] [place] LIVER FUNCTION ALKALINE PHOSPHATASE [ENZYMATIC ACTIVITY/VO LUME] IN SERUM OR PLASMA 70 U/L 40 - 150 09/02 Specimen Type: SERUM No comment entered. Ordering Provider: JUANITA BIRCH Report Released Date/Time: Aug 20, 2024 02:24 PM Reporting Lab: [facility] [place] [facility] [address] [facility] [address] Performing Lab: [facility]ITALUSETS [facility] [address] [facility] [address] [place] LIVER FUNCTION ASPARTATE AMINOTRANSF ERASE [ENZYMATIC ACTIVITY/VO LUME] IN SERUM OR PLASMA 21 U/L 5 - 34 09/02 Specimen Type: SERUM No comment entered. Ordering Provider: JUANITA BIRCH Report Released Date/Time: Aug 20, 2024 02:24 PM Reporting Lab: [facility] [address] [address] Performing Lab: [facility]ITALUSE[address] [address] [place] LIVER FUNCTION ALANINE AMINOTRANSF ERASE [ENZYMATIC ACTIVITY/VO LUME] IN SERUM OR PLASMA 29 U/L 09/02 Specimen Type: SERUM No comment entered. Ordering Provider: JUANITA BIRCH Report Released Date/Time: Aug 20, 2024 02:24 PM Reporting Lab: [facility] [address] Performing Lab: [facility]USE[address] [address] [place]IVER FUNCTION BILIRUBIN.T OTAL [MASS/VOLUM E] IN SERUM OR PLASMA 0.6 mg/dL 0.2 - 1.2 09/02 Specimen Type: SERUM No comment entered. Ordering Provider: JUANITA BIRCH Report Released Date/Time: Aug 20, 2024 02:24 PM Reporting Lab: [place] [place] [address] [address] Performing Lab: [facility]ITALUSE[address] [address] [place] MICROALBU MIN CREATININ E RATIO PANEL MICROALBUMI N/CREATININ E [MASS RATIO] IN URINE 9.9 mg/g 0 - 29.9 09/02 Specimen Type: URINE No comment entered. Ordering Provider: JUANITA BIRCH Report Released Date/Time: Aug 20, 2024 02:24 PM Reporting Lab: [facility]ITALN [facility] [address] [facility] [address] Performing Lab: [address] [address] [place] MICROALBU MIN CREATININ E RATIO PANEL MICROALBUMI N [MASS/VOLUM E] IN URINE 0.8 mg/dL 09/02 Specimen Type: URINE No comment entered. Ordering Provider: JUANITA BIRCH Report Released Date/Time: Aug 20, 2024 02:24 PM Reporting Lab: [address] [address] Performing Lab: [address] [address] [place] MICROALBU MIN CREATININ E RATIO PANEL CREATININE [MASS/VOLUM E] IN URINE 80.78 mg/dL 09/02 Specimen Type: URINE No comment entered. Ordering Provider: JUANITA BIRCH Report Released Date/Time: Aug 20, 2024 02:24 PM Reporting Lab: [address] [address] Performing Lab: [address] [address] [place] TSH THYROTROPIN [UNITS/VOLU ME] IN SERUM OR PLASMA 4.66 u[IU]/ mL 0.35 - 5.00 09/02 Specimen Type: SERUM No comment entered. Ordering Provider: JUANITA BIRCH Report Released Date/Time: Aug 20, 2024 02:24 PM Reporting Lab: [address] [address] Performing Lab: [address] [address] [place] URIC ACID URATE [MASS/VOLUM E] IN SERUM OR PLASMA 7.9 mg/dL 3.5 - 7.2 09/02 H Specimen Type: SERUM No comment entered. Ordering Provider: JUANITA BIRCH Report Released Date/Time: Aug 20, 2024 02:24 PM Reporting Lab: [facility]ITALN [facility] [address] [facility] [address] Performing Lab: [facility] HOSPITALN [address] [address] [employer] ITZEL VITAMIN D (25-OH) 25-HYDROXYV ITAMIN D3 [MASS/VOLUM E] IN SERUM OR PLASMA 45 ng/mL 20 - 50 09/02 Specimen Type: SERUM No comment entered. Ordering Provider: JUANITA BIRCH Report Released Date/Time: Aug 20, 2024 02:24 PM Reporting [facility] [address] [facility] [address] Performing [facility]: [facility] [address] [address] [facility] Vital Signs Combined list of inpatient and outpatient Vital Signs from Department of Defense and Veterans Affairs, ranging from 12 months to all on record, depending upon the facility. Vital Sign Value Date Comments Source SYSTOLIC BLOOD PRESSURE 126 09/03/2024 10:28:15 [facility] DIASTOLIC BLOOD PRESSURE 76 09/03/2024 10:28:15 [facility] PULSE OXIMETRY 98 09/03/2024 10:28:15 [facility] 236 09/03/2024 [facility]:28[facility] BMI 34kg/m2 09/03/2024 10:28[facility] 97.6 09/03/2024 10:28:15 [facility] [place] PULSE 79 09/03/2024 10:28:15 [facility] RESP[facility] 18 09/03/2024 10:28:15 [facility] [place] Encounters Combined list of: 1) Encounters from Department of Veterans Affairs facilities going back up to thelast 18 months. 2) Encounters from the Department of Defense facilities going back up to 280 months. Location Location Details Encounter Type Encounter Number Reason For Visit Attending Provider ADM Date DC Date Status [facility] Source [facility] Outpatient Encounter [id number] 06/06 [facility] Outpatient Encounter [id number] 06/30 [facility] Outpatient Encounter [id number] 07/07 [facility] Outpatient Encounter [id number] 08/04 [facility] Outpatient Encounter [id number] 08/06 [facility] Out[facility] Encounter [id number] 08/25 [facility] Out[facility] Encounter [id number] 08/29 [facility] OFFICE O/P EST MOD 30-39 MIN [id number] Diagnos is: ICD-10- CM N18.30 Chronic kidney disease , stage 3 unspeci fied
YOBANI BIRCH 09/05 [facility] MTMS BY PHARM ADDL 15 MIN [id number] Diagnos is: ICD-10- CM 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< br/> NIKHILSOPHIA MEMBRENO IE 11/07 [facility] IE [facility] QNHP OL DIG ASSMT&MGMT 5-10 [id number] Diagnos is: ICD-10- CM 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< br/> Charlene COOK 01/03 /2024 [facility] Out[facility] Encounter [id number] YOBANI BIRCH 12/11 [facility] [place] MTMS BY PHARM ADDL 15 MIN [id number] Diagnos is: ICD-10- CM 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< br/> NIKHIL,SOPHIA IE 12/12 [place] [facility] Outpatient Encounter [id number] WALDEMAR MCCALLUM 12/13 [facility] Out[facility] Encounter [id number] 01/16 [facility] Outpatient Encounter [id number] 01/16 [facility] Outpatient Encounter [id number] 01/16 [facility] Outpatient Encounter [id number] 01/21 [facility] [place] MTMS BY PHARM ADDL 15 MIN [id number] Diagnos is: ICD-10- CM 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< br/> NIKHIL,SOPHIA IE 01/29 [place] [facility] Outpatient Encounter [id number] 01/30 [facility] Outpatient Encounter [id number] 01/30 [facility] [place] MTMS BY PHARM FIREFIGHTER 15 MIN [id number] Diagnos is: ICD-10- CM 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< br/> NIKHIL,SOPHIA IE 02/06 [facility] [place] MTMS BY PHARM ADDL 15 MIN [id number] Diagnos is: ICD-10- CM 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< br/> NIKHIL,SOPHIA IE 03/04 [facility] QNHP OL DIG ASSMT&MGMT 5-10 [id number] Diagnos is: ICD-10- CM 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< br/> SHAHNAZ COLLADO 03/04 [facility] Outpatient Encounter [id number] 04/02 [facility] Out[facility] Encounter [id number] 04/04 [facility] Outpatient Encounter [id number] 04/05 [facility] [place] MTMS BY PHARM ADDL 15 MIN [id number] Diagnos is: ICD-10- CM 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 Social History Type Response Date Comment Sourc e Tobacco smoking status [facility] VA-TOBACCO FORMER USER 09/03/2024 [place] History of tobacco use CO-TOBACCO QUIT 15 YRS OR MORE 09/03/2024 [place] History of tobacco use CO-TOBACCO FORMER USER 09/05/2023 [place] History of tobacco use CO-TOBACCO FORMER USER 09/08/2022 [place] History of tobacco use VA-TOBACCO FORMER USER 07/08/2021 [place] History of tobacco use VA-TOBACCO NEVER USED 05/28/2020 [facility] History of tobacco use CO-TOBACCO QUIT 15 YRS OR MORE 05/29/2018 [place] History of tobacco use LIFETIME NON-TOBACCO USER 05/29/2018 [place] History of tobacco use QUIT TOBACCO USE > 7 YEARS AGO 05/04/2017 [place] History of tobacco use QUIT TOBACCO USE > 7 YEARS AGO 04/28/2016 smoked for 4 years about 2 pack a week quit 50 years ago [facility] History of tobacco use QUIT TOBACCO USE > 7 YEARS AGO 08/20/2013 22 yo [facility] Plan of Care List of future care activities from Department of Veterans Affairs facilities. Additional future care activities may be listed in the Assessment and Plan section. Date/Time Care Activity Care Activity Detail Facili ty 10/25/2024 AMBULATORY - MEDICINE [facility]
--- OUTSIDE RECORDS SUMMARY | 2024-10-17 01:39 | XMS_ITS ---
Author Name [facility] [facility] [place] Address [address] [place] [id number] Care Team Providers Care Cooperative Education Coordinator Name Role Phone JUANITA BIRCH Primary Care [...] Policy [place] [facility] Nov 06, 2016 MEDICAR E SUPPLEM E [id number] Rao [place] PATIENT MEDICARE (WNR) MEDICARE (M) PART A May 06, 2008 PART A [id number] [facility] Rao [place] PATIENT MEDICARE (WNR) MEDICARE (M) PART B May 06, 2008 PART B [id number] Rao [place] PATIENT MEDICARE (WNR) MEDICARE (M) PART A May 06, 2008 PART A [id number] [phone] [place] PATIENT MEDICARE (WNR) MEDICARE (M) PART B May 06, 2008 PART B [id number] [place] PATIENT Selected Encounter This section includes the information on record at [place] for the Encounter. Date/Time Encounter Type Encounter Description Reason Pro vider Source Jan 17, 2024 12:00 AM Outpatient Encounter EVENT (HISTORICAL) [facility] Encounter Template Text not used by [place] Plan of Treatment: Future Appointments (+ 6 months) and Future Tests (+/- 45 days) The Plan of Treatment section includes future care activities for the patient from all [place] treatmentfacilities. This section includes future appointments and [...] 30, 2024 09:00 AM AMBULATORY - MEDICINE [facility] Feb 07, 2024 09:30 AM AMBULATORY - MEDICINE [facility] Mar 04, 2024 09:00 AM AMBULATORY - MEDICINE [facility] Apr 15, 2024 09:00 AM AMBULATORY - MEDICINE [facility] Active, Pending, and Scheduled Orders This section includes a listing of several types of active, pending, and scheduled orders, including clinic medications orders, diagnostic test orders, procedure orders and consult orders; where the start date of the order is 45 days before the date of the Encounter or 45 days after the date of theEncounter. The data comes from all [facility]. Test Date/Time Test Type Test Details Facility Name Dec 08, 2023 12:00 AM Laboratory - Chemi stry Order MICROALBUMIN CREATININE RATIO PANEL URINE (RANDOM) [facility] Dec 08, 2023 12:00 AM Laboratory - Chemi stry Order URINALYSIS URINE [facility] Dec 08, 2023 12:00 AM Laboratory - Chemi stry Order CBC AND DIFF (AUTO) BLOOD (LAV-BLOOD) [facility] Dec 08, 2023 12:00 AM Laboratory - Chemi stry Order HEMOGLOBIN A1C PANEL BLOOD (LAV-BLOOD) [facility] Dec 08, 2023 12:00 AM Laboratory - Chemi stry Order BASIC METABOLIC PANEL (fasting) BLOOD (SST-SERUM) [facility] Dec 08, 2023 12:00 AM Laboratory - Chemi stry Order LIPID PANEL FASTING BLOOD (SST-SERUM) [facility] Dec 08, 2023 12:00 AM Laboratory - Chemi stry Order LIVER FUNCTION BLOOD (SST-SERUM) [facility] Dec 08, 2023 12:00 AM Laboratory - Chemi stry Order CALCIUM BLOOD (SST-SERUM) [facility] Encounter Notes: All associated encounter notes This section contains the clinical notes associated to the Encounter. Date/Time Encounter Note(s) Provider Source Jan 17, 2024 12:00 AM NONVA NOTE: LOCAL TITLE: NON-VA OUTPATIENT NOTES STANDARD TITLE: NONVA NOTE DATE OF NOTE: JAN 17, 2024 ENTRY DATE: FEB 13, 2024@14:25:42 AUTHOR: KATELYN CARDOZO EXP COSIGNER: URGENCY: STATUS: COMPLETED VistA Imaging - Scanned Document SCANNED DOCUMENT SIGNATURE NOT REQUIRED Electronically Filed: 02/13/2024 by: KATELYN CAMILO [facility]
--- OUTSIDE RECORDS SUMMARY | 2024-10-17 02:02 | XMS_ITS | Continuity of Care Document ---
Author Name [facility] Organization [facility] Care Team Providers Care Coining Press Operator Name Role Phone [facility] Unavailable Unavailable Problems Combined list of problems from 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 It does not include entries that were removed or entered in error. Problem Status Onset Date Problem Type Date of Resolution Comments Source Anxiety Active Condition AM[facility] Asbestosis Active Condition May 29 018 Entered By: JUANITA BIRCH Comment: Dx NOV 2012 via Private PULMO: CXR, CT Thorax Done 2012 Entered By: JUANITA BIRCH Comment: Dx NOV [address] [facility] Entered By: JUANITA BIRCH Comment: early scarring note but appeared not to beOct 2012 Entered By: JUANITA IBRCH Comment: progressive in nature back 2012 Entered By: JUANITA BIRCH Comment: Lung Bx done Via Cardi-Thoracic Surg [facility] (Dr [facility])Aug 20, 2013 Entered By: JUANITA BIRCH [facility] Aug Entered By: JUANITA BIRCH Comment: Attributable to Svc [place] 1960'sOct 2012 Entered By: JUANITA BIRCH Comment: no Lung CA as of Aug Entered By: JUANITA BIRCH Comment: Next Pulmo Eval NOV 29 [facility] Benign hypertension Active Condition [facility] Benign prostatic hyperplasia Active Condition Aug 20, 2013 Entered By: JUANITA BIRCH Comment: TURP NOV 2012; no Prostate CA [facility] Cataract Active Condition Aug 20 Entered By: JUANITA BIRCH Comment: Surg [facility] 2012 [facility] Chronic kidney disease stage 3 Active Condition Sep 03, 2024 Entered By: JUANITA BIRCH Comment: eGFR 31 in Aug Entered By: JUANITA BIRCH Comment: Diabetic Nephropathy AM[facility] Coronary artery disease Active Condition Oct 09, 2019 Entered By: JUANITA BIRCH Comment: CABG (3 vessel by-pass) ) [facility] AUG 24De2018 Entered By: JUANITA BIRCH Comment: S&S Suspicious for ACS During Course of Pulmo Eval for Asbestosis AM[facility]IA Diabetes mellitus Active Condition 2019 Entered By: JUANITA BIRCH Comment: no DR as of NOV 25 AM[facility]IA Exposure to potentially hazardous substance Active Condition Sep 05, 2023 Entered By: JUANITA BIRCH Comment: Asbestosis [facility] Heart murmur Active Condition Apr 28, 2016 Entered By: JUANITA BIRCH Comment: Functional ?; no Sx AM[facility]IA History of colonoscopy Active Condition Aug 20, 2013 Entered By: JUANITA BIRCH Comment: Last Colonoscopy 2011; no CRC or PolypsAug 20, 2013 Entered By: JUANITA BIRCH Comment: done [facility]; repeat 2018 Entered By: JUANITA BIRCH Comment: Last Colonoscopy 2018; Neg CRC; Repeat prn x [facility]IA Hypercholesterolemia Active Condition Aug 20, 2013 Entered By: JUANITA BIRCH Comment: cannot tolerate Statin's; on Zetia [facility]IA Indigestion Active Condition [place] Peripheral vascular disease Active Condition Sep 08, 2022 Entered By: JUANITA BIRCH Comment: Stasis Derm Both LE's AMENIA Diagnosis: ICD-10-CM E11.65 Type 2 diabetes mellitus with hyperglycemia Active Diagnosis AM[facility]IA Diagnosis: ICD-10-CM I73.9 Peripheral vascular disease, unspecified Active Diagnosis AM[facility]IA Diagnosis: ICD-10-CM N18.30 Chronic kidney disease, stage 3 unspecified Active Diagnosis AM[facility] Medications Combined list of outpatient medications from 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Medications provided include 1) outpatient medications from the last 15 months, and 2) patient-reported medications. Medication Details Route Status Patient Instructions Prescription Expires Prescription Number Last Dispense Date Ordering Provider Order Date Order Qty Source ASPIRIN 81MG TAB,EC TAKE ONE TABLET BY MOUTH ONCE DAILY ORAL ACTIVE KYRA BIRCH 2021 [facility] IELD ATORVASTATI N TAB TAKE LIPITOR BY MOUTH ONCE DAILY ORAL ACTIVE KYRA BIRCH 2019 [facility] IELD BUPROPION HCL 150MG 24HR TAB,SA TAKE ONE TABLET BY MOUTH ONCE DAILY ORAL ACTIVE KYRA BIRCH 2021 [facility] IELD EMPAGLIFLOZ IN 10MG TAB TAKE ONE TABLET BY MOUTH ONCE DAILY ORAL DISCONT INUED BY PETE R 02/05/2025 [id number] KYRA BIRCH EDUARDO 2023 90 IEITZEL EZETIMIBE 10MG TAB TAKE ONE TABLET BY MOUTH EVERY DAY ORAL ACTIVE KYRA BIRCH EDUARDO 2012 IELD FAMOTIDINE 20MG TAB TAKE ONE TABLET BY MOUTH EVERY DAY NEEDED ORAL ACTIVE KYRA BIRCH EDUARDO 2012 [facility] IELD FUROSEMIDE TAB TAKE LASIX BY MOUTH ONCE DAILY ORAL ACTIVE KYRA BIRCH EDUARDO 2019 IELD INSULIN,GLA RGINE-YFGN 100UNIT/ML INJ PEN,3ML INJECT 30 UNITS SUBCUTAN EOUSLY EVERY EVENING FOR DIABETES SUBCUT ANEOUS ACTIVE 10/09/2025 [id number] 4 ANTHONY TEJEDA 2023 5 IELD INSULIN,GLA RGINE-YFGN 100UNIT/ML INJ PEN,3ML INJECT 28 UNITS SUBCUTAN EOUSLY EVERY EVENING FOR DIABETES SUBCUT ANEOUS DISCONT INUED (EDIT) 12/13/2024 [id number] 4 ANTHONY TEJEDA 2023 10 IELD INSULIN,GLA RGINE-YFGN 100UNIT/ML INJ PEN,3ML INJECT 25 UNITS SUBCUTAN EOUSLY EVERY EVENING - SAME LANTUS SUBCUT ANEOUS DISCONT INUED (EDIT) 08/25/2024 [id number] KYRA BIRCH EDUARDO 2022 5 IELD METOPROLOL TARTRATE 25MG TAB TAKE ONE-HALF TABLET BY MOUTH TWICE DAILY ORAL ACTIVE KYRA BIRCH EDUARDO 2019 IELD SEMAGLUTIDE 0.25MG/0.37 5ML INJ,SOLN,PE N,3ML INJECT 0.25MG SUBCUTAN EOUSLY ONCE A WEEK FOR TYPE 2 DIABETES MELLITUS SUBCUT ANEOUS DISCONT INUED BY PETE R 04/03/2024 [id number] 4 ANTHONY TEJEDA 2023 1 IELD SERTRALINE HCL 100MG TAB TAKE TWO TABLETS BY MOUTH EVERY MORNING ORAL ACTIVE KYRA BIRCH EDUARDO 2012 [facility] IELD Allergies, Adverse Reactions, Alerts Combined list [...] Site Reaction Lot Number CVX Code Drug Company Manager Status Comments Source INFLUENZA, UNSPECIFIED FORMULATION 2022 [...] PM Reporting Lab: [facility] [place] [facility] [address] [facility] [address] Performing Lab: [facility] [address] [address] [place] CBC AND DIFF (AUTO) LEUKOCYTES [#/VOLUME] IN BLOOD BY AUTOMATED COUNT 5.39 10*3/u L 4.50 - 11.00 09/02 Specimen Type: BLOOD No comment entered. Ordering Provider: JUANITA BIRCH Report Released Date/Time: Aug 20, 2024 02:24 PM Reporting Lab: [facility] [place] [address] [address] Performing Lab: [facility]CR[facility]COM[facility] ALABAMATRN [facility] [address] [address] [place] CBC AND DIFF (AUTO) ERYTHROCYTE S [#/VOLUME] IN BLOOD BY AUTOMATED COUNT 4.07 10*6/u L 4.23 - 5.66 09/02 L Specimen Type: BLOOD No comment entered. Ordering Provider: JUANITA BIRCH Report Released Date/Time: Aug 20, 2024 02:24 PM Reporting Lab: [facility] [place] [address] [address] Performing Lab: [facility]COM[facility] [address] [address] [place] CBC AND DIFF (AUTO) HEMOGLOBIN [MASS/VOLUM E] IN BLOOD 12.9 g/dL 12.8 - 17 09/02 Specimen Type: BLOOD No comment entered. Ordering Provider: JUANITA BIRCH Report Released Date/Time: Aug 20, 2024 02:24 PM Reporting Lab: [facility] [address] [address] Performing Lab: [facility]IACRRUSSELLVILLE HOSPITALN [facility]USUSE[address] [address] [place] CBC AND DIFF (AUTO) HEMATOCRIT [VOLUME FRACTION] OF BLOOD BY AUTOMATED COUNT 37.6 39.2 - 50.4 09/02 L Specimen Type: BLOOD No comment entered. Ordering Provider: JUANITA BIRCH Report Released Date/Time: Aug 20, 2024 02:24 PM Reporting Lab: [facility] [place] [facility] [address] [facility] [address] Performing Lab: [facility]CR[facility]COM[facility]AMATRN [facility] CAMPUSUSETS [facility] [address] [facility] [address] [place] CBC AND DIFF (AUTO) MCV [ENTITIC VOLUME] BY AUTOMATED COUNT 92.4 fL 82 - 99 09/02 Specimen Type: BLOOD No comment entered. Ordering Provider: JUANITA BIRCH Report Released Date/Time: Aug 20, 2024 02:24 PM Reporting Lab: [facility] [place] [facility] [address] [facility] [address] Performing Lab: [facility]IACRRUSSELLVILLE HOSPITALN [address] [address] [place] CBC AND DIFF (AUTO) MCHC [MASS/VOLUM E] BY AUTOMATED COUNT 34.3 g/dL 30.8 - 35.1 09/02 Specimen Type: BLOOD No comment entered. Ordering Provider: JUANITA BIRCH Report Released Date/Time: Aug 20, 2024 02:24 PM Reporting Lab: [facility] [place] [address] [address] Performing Lab: [facility]IACRRUSSELLVILLE HOSPITALN [facility]AMPUSUSE[address] [address] [place] CBC AND DIFF (AUTO) PLATELETS [#/VOLUME] IN BLOOD BY AUTOMATED COUNT 164 10*3/u L 140 - 360 09/02 Specimen Type: BLOOD No comment entered. Ordering Provider: JUANITA BIRCH Report Released Date/Time: Aug 20, 2024 02:24 PM Reporting Lab: [facility]CRENCOM[facility] AL[facility]AMATRN MASSUSE[address] [address] Performing Lab: [facility]IACRRUSSELLVILLE HOSPITALN [facility]AMPUSUSE[address] [address] [place] CBC AND DIFF (AUTO) ERYTHROCYTE DISTRIBUTIO N WIDTH [RATIO] BY AUTOMATED COUNT 13.0 12.0 - 16.0 09/02 Specimen Type: BLOOD No comment entered. Ordering Provider: JUANITA BIRCH Report Released Date/Time: Aug 20, 2024 02:24 PM Reporting Lab: [facility]IACRRUSSELLVILLE HOSPITALN [address] [address] Performing Lab: [facility] [place] [facility] [address] [facility] [address] [place] CBC AND DIFF (AUTO) MONOCYTES [#/VOLUME] IN BLOOD BY AUTOMATED COUNT 0.49 10*3/u L 0.30 - 1.10 09/02 Specimen Type: BLOOD No comment entered. Ordering Provider: JUANITA BIRCH Report Released Date/Time: Aug 20, 2024 02:24 PM Reporting Lab: [facility] [place] [address] [address] Performing Lab: [facility] [place] [address] [address] [place] CBC AND DIFF (AUTO) MCH [ENTITIC MASS] BY AUTOMATED COUNT 31.7 pg 26.2 - 32.6 09/02 Specimen Type: BLOOD No comment entered. Ordering Provider: JUANITA BIRCH Report Released Date/Time: Aug 20, 2024 02:24 PM Reporting Lab: [facility] [place] [address] [address] Performing Lab: [facility] [place] [address] [address] [place] CBC AND DIFF (AUTO) NEUTROPHILS /100 LEUKOCYTES IN BLOOD BY AUTOMATED COUNT 71.1 43.7 - 75.8 09/02 Specimen Type: BLOOD No comment entered. Ordering Provider: JUANITA BIRCH Report Released Date/Time: Aug 20, 2024 02:24 PM Reporting Lab: [facility] [place] [address] [address] Performing Lab: [facility] [place] [address] [address] [place] CBC AND DIFF (AUTO) LYMPHOCYTES /100 LEUKOCYTES IN BLOOD BY AUTOMATED COUNT 16.1 14.0 - 42.3 09/02 Specimen Type: BLOOD No comment entered. Ordering Provider: JUANITA BIRCH Report Released Date/Time: Aug 20, 2024 02:24 PM Reporting Lab: [facility] [place] [address] [address] Performing Lab: [facility] [address] [address] [place] CBC AND DIFF (AUTO) MONOCYTES/1 00 LEUKOCYTES IN BLOOD BY AUTOMATED COUNT 9.1 5.1 - 13.7 09/02 Specimen Type: BLOOD No comment entered. Ordering Provider: JUANITA BIRCH Report Released Date/Time: Aug 20, 2024 02:24 PM Reporting Lab: [facility]USUSETS [address] [address] Performing Lab: [facility]AMPUSUSETS [address] [address] [place] CBC AND DIFF (AUTO) EOSINOPHILS /100 LEUKOCYTES IN BLOOD BY AUTOMATED COUNT 3.5 0.4 - 6.8 09/02 Specimen Type: BLOOD No comment entered. Ordering Provider: JUANITA BIRCH Report Released Date/Time: Aug 20, 2024 02:24 PM Reporting Lab: [facility]IACRENCOM[facility] AL[facility]AMATRN [address] [address] Performing Lab: [facility]AMPUSUSETS [address] [address] [place] CBC AND DIFF (AUTO) BASOPHILS/1 00 LEUKOCYTES IN BLOOD BY AUTOMATED COUNT 0.0 0.1 - 2.0 09/02 L Specimen Type: BLOOD No comment entered. Ordering Provider: JUANITA BIRCH Report Released Date/Time: Aug 20, 2024 02:24 PM Reporting Lab: [facility]CRENCOM[facility]ATRN [facility]AMPUSUSETS [address] [address] Performing Lab: [facility]IACRENCOM[facility]AMATRN [facility] CAMPUSUSETS [address] [address] [place] CBC AND DIFF (AUTO) NEUTROPHILS [#/VOLUME] IN BLOOD BY AUTOMATED COUNT 3.83 10*3/u L 2.20 - 7.60 09/02 Specimen Type: BLOOD No comment entered. Ordering Provider: JUANITA BIRCH Report Released Date/Time: Aug 20, 2024 02:24 PM Reporting Lab: [facility]USUSETS [address] [address] Performing Lab: [facility]IACRRUSSELLVIL[facility]OSPITALN [facility]USUSE[address] [address] [place] CBC AND DIFF (AUTO) LYMPHOCYTES [#/VOLUME] IN BLOOD BY AUTOMATED COUNT 0.87 10*3/u L 1.00 - 3.20 09/02 L Specimen Type: BLOOD No comment entered. Ordering Provider: JUANITA BIRCH Report Released Date/Time: Aug 20, 2024 02:24 PM Reporting Lab: [facility] [address] [address] Performing Lab: [facility] [address] [address] [place] CBC AND DIFF (AUTO) EOSINOPHILS [#/VOLUME] IN BLOOD BY AUTOMATED COUNT 0.19 10*3/u L 0.03 - 0.44 09/02 Specimen Type: BLOOD No comment entered. Ordering Provider: JUANITA BIRCH Report Released Date/Time: Aug 20, 2024 02:24 PM Reporting Lab: [facility] [address] [address] Performing Lab: [facility] [address] [address] [place] CBC AND DIFF (AUTO) BASOPHILS [#/VOLUME] IN BLOOD BY AUTOMATED COUNT 0.00 10*3/u L 0.01 - 0.13 09/02 L Specimen Type: BLOOD No comment entered. Ordering Provider: JUANITA BIRCH Report Released Date/Time: Aug 20, 2024 02:24 PM Reporting Lab: [facility] [address] [address] Performing Lab: [facility] [address] [address] [place] CBC AND DIFF (AUTO) IMMATURE GRANULOCYTE S/100 LEUKOCYTES IN BLOOD BY AUTOMATED COUNT 0.2 0.0 - 0.7 09/02 Specimen Type: BLOOD No comment entered. Ordering Provider: JUANITA BIRCH Report Released Date/Time: Aug 20, 2024 02:24 PM Reporting Lab: [address] [address] Performing Lab: [facility] [address] [address] [place] CBC AND DIFF (AUTO) IMMATURE GRANULOCYTE S [#/VOLUME] IN BLOOD 0.01 10*3/u L 0.00 - 0.06 09/02 Specimen Type: BLOOD No comment entered. Ordering Provider: JUANITA BIRCH Report Released Date/Time: Aug 20, 2024 02:24 PM Reporting Lab: [address] [address] Performing Lab: [address] [address] [place] CBC AND DIFF (AUTO) NRBC % 0.0 0.0 - 0.0 09/02 Specimen Type: BLOOD No comment entered. Ordering Provider: JUANITA BIRCH Report Released Date/Time: Aug 20, 2024 02:24 PM Reporting Lab: [address] [address] Performing Lab: [address] [address] [place] CBC AND DIFF (AUTO) NRBC, ABS 0.00 10*3/u L 0.00 - 0.00 09/02 Specimen Type: BLOOD No comment entered. Ordering Provider: JUANITA BIRCH Report Released Date/Time: Aug 20, 2024 02:24 PM Reporting Lab: [address] [address] Performing Lab: [address] [address] [place] FERRITIN FERRITIN [MASS/VOLUM E] IN SERUM OR PLASMA 302 ng/mL 20 - 300 09/02 H Specimen Type: SERUM No comment entered. Ordering Provider: JUANITA BIRCH Report Released Date/Time: Aug 20, 2024 02:24 PM Reporting Lab: [address] [address] Performing Lab: [address] [address] [place] HEMOGLOBI N A1C PANEL HEMOGLOBIN [...] Aug 20, 2024 02:24 PM Reporting Lab: [address] [address] Performing Lab: [address] [address] [place] LIPID PANEL FASTING CHOLESTEROL [MASS/VOLUM E] IN SERUM OR PLASMA 167 mg/dL 09/02 Specimen Type: SERUM No comment entered. Ordering Provider: JUANITA BIRCH Report Released Date/Time: Aug 20, 2024 02:24 PM Reporting Lab: [address] [address] Performing Lab: [address] [address] [place] LIPID PANEL FASTING TRIGLYCERID E [MASS/VOLUM E] IN SERUM OR PLASMA 102 mg/dL 0 - 150 09/02 Specimen Type: SERUM No comment entered. Ordering Provider: JUANITA BIRCH Report Released Date/Time: Aug 20, 2024 02:24 PM Reporting Lab: [address] [address] Performing Lab: [address] [address] [place] LIPID PANEL FASTING CHOLESTEROL IN LDL [MASS/VOLUM E] IN SERUM OR PLASMA BY CALCULATION 76 mg/dL 0 - 129 09/02 Specimen Type: SERUM No comment entered. Ordering Provider: JUANITA BIRCH Report Released Date/Time: Aug 20, 2024 02:24 PM Reporting Lab: [address] [address] Performing Lab: [facility]USUSETS [facility] [address] [facility] [address] [place] LIPID PANEL FASTING CHOLESTEROL .TOTAL/CHOL ESTEROL IN HDL [MASS RATIO] IN SERUM OR PLASMA 2.4 09/02 Specimen Type: SERUM No comment entered. Ordering Provider: JUANITA BIRCH Report Released Date/Time: Aug 20, 2024 02:24 PM Reporting Lab: [facility]USUSEMAD[facility] [address] [facility] [address] Performing Lab: [facility]IACRRUSSELLV[facility]PITALN [facility]AMPUSUSEMADISON [facility] [address] [facility] [address] [place] LIPID PANEL FASTING CHOLESTEROL IN HDL [MASS/VOLUM E] IN SERUM OR PLASMA 71 mg/dL 40 - 60 09/02 H Specimen Type: SERUM No comment entered. Ordering Provider: JUANITA BIRCH Report Released Date/Time: Aug 20, 2024 02:24 PM Reporting Lab: [facility]USUSEMAD[facility] [address] [facility] [address] Performing Lab: [facility]AMPUSUSE[address] [address] [place] LIVER FUNCTION PROTEIN [MASS/VOLUM E] IN SERUM OR PLASMA 6.9 g/dL 6.0 - 8.3 09/02 Specimen Type: SERUM No comment entered. Ordering Provider: JUANITA BIRCH Report Released Date/Time: Aug 20, 2024 02:24 PM Reporting Lab: [facility]USUSEMAD[facility] [address] [facility] [address] Performing Lab: [facility]USUSE[address] [address] [place] LIVER FUNCTION ALBUMIN [MASS/VOLUM E] IN SERUM OR PLASMA 3.6 g/dL 3.5 - 5.0 09/02 Specimen Type: SERUM No comment entered. Ordering Provider: JUANITA BIRCH Report Released Date/Time: Aug 20, 2024 02:24 PM Reporting Lab: [facility]IACRRUSSELLV[facility]OSPITALN [facility]USUSE[address] [address] Performing Lab: [facility]USUSE[address] [address] [place] LIVER FUNCTION ALKALINE PHOSPHATASE [ENZYMATIC ACTIVITY/VO LUME] IN SERUM OR PLASMA 70 U/L 40 - 150 09/02 Specimen Type: SERUM No comment entered. Ordering Provider: JUANITA BIRCH Report Released Date/Time: Aug 20, 2024 02:24 PM Reporting Lab: [facility] [place] [facility] [address] [facility] [address] Performing Lab: [facility]USUSETS [facility] [address] [facility] [address] [place] LIVER FUNCTION ASPARTATE AMINOTRANSF ERASE [ENZYMATIC ACTIVITY/VO LUME] IN SERUM OR PLASMA 21 U/L 5 - 34 09/02 Specimen Type: SERUM No comment entered. Ordering Provider: JUANITA BIRCH Report Released Date/Time: Aug 20, 2024 02:24 PM Reporting Lab: [facility] [address] [address] Performing Lab: [facility]USUSE[address] [address] [place] LIVER FUNCTION ALANINE AMINOTRANSF ERASE [ENZYMATIC ACTIVITY/VO LUME] IN SERUM OR PLASMA 29 U/L 09/02 Specimen Type: SERUM No comment entered. Ordering Provider: JUANITA BIRCH Report Released Date/Time: Aug 20, 2024 02:24 PM Reporting Lab: [facility] [address] [address] Performing Lab: [facility]USUSE[address] [address] [place] LIVER FUNCTION BILIRUBIN.T OTAL [MASS/VOLUM E] IN SERUM OR PLASMA 0.6 mg/dL 0.2 - 1.2 09/02 Specimen Type: SERUM No comment entered. Ordering Provider: JUANITA BIRCH Report Released Date/Time: Aug 20, 2024 02:24 PM Reporting Lab: [facility] [place] [address] [address] Performing Lab: [facility]N [facility]USUSE[address] [address] [place] MICROALBU MIN CREATININ E RATIO PANEL MICROALBUMI N/CREATININ E [MASS RATIO] IN URINE 9.9 mg/g 0 - 29.9 09/02 Specimen Type: URINE No comment entered. Ordering Provider: JUANITA BIRCH Report Released Date/Time: Aug 20, 2024 02:24 PM Reporting Lab: [facility] [address] [facility] [address] Performing Lab: [address] [address] [place] MICROALBU MIN CREATININ E RATIO PANEL MICROALBUMI N [MASS/VOLUM E] IN URINE 0.8 mg/dL 09/02 Specimen Type: URINE No comment entered. Ordering Provider: JUANITA BIRCH Report Released Date/Time: Aug 20, 2024 02:24 PM Reporting Lab: [address] [address] Performing Lab: [address] [address] [place] MICROALBU MIN CREATININ E RATIO PANEL CREATININE [MASS/VOLUM E] IN URINE 80.78 mg/dL 09/02 Specimen Type: URINE No comment entered. Ordering Provider: JUANITA BIRCH Report Released Date/Time: Aug 20, 2024 02:24 PM Reporting Lab: [address] [address] Performing Lab: [address] [address] [place] TSH THYROTROPIN [UNITS/VOLU ME] IN SERUM OR PLASMA 4.66 u[IU]/ mL 0.35 - 5.00 09/02 Specimen Type: SERUM No comment entered. Ordering Provider: JUANITA BIRCH Report Released Date/Time: Aug 20, 2024 02:24 PM Reporting Lab: [address] [address] Performing Lab: [address] [address] [place] URIC ACID URATE [MASS/VOLUM E] IN SERUM OR PLASMA 7.9 mg/dL 3.5 - 7.2 09/02 H Specimen Type: SERUM No comment entered. Ordering Provider: JUANITA BIRCH Report Released Date/Time: Aug 20, 2024 02:24 PM Reporting [facility] [address] [facility] [id number] Performing [facility]: [facility] [address] [address] [employer] ITZEL VITAMIN D (25-OH) 25-HYDROXYV ITAMIN D3 [MASS/VOLUM E] IN SERUM OR PLASMA 45 ng/mL 20 - 50 09/02 Specimen Type: SERUM No comment entered. Ordering Provider: JUANITA BIRCH Report Released Date/Time: Aug 20, 2024 02:24 PM Reporting [facility] [address] [facility] [address] Performing [facility]: [facility] [address] [address] [facility] Vital Signs Combined list of inpatient and outpatient Vital Signs from Department of Defense and Veterans Affairs, ranging from 12 months to all on record, depending upon the facility. Vital Sign Value Date Comments Source SYSTOLIC BLOOD PRESSURE 126 09/03/2024 10:28:15 [facility] DIASTOLIC BLOOD PRESSURE 76 09/03/2024 10:28:15 [facility] PULSE OXIMETRY 98 09/03/2024 10:28:15 [facility] 236 09/03/2024 10:28:15 [facility] BMI 34kg/m2 09/03/2024 10:28:15 [facility] TEMPERATURE 97.6 09/03/2024 10:28:15 [place] PULSE 79 09/03/2024 10:28:15 [facility] RESPIRATION 18 09/03/2024 10:28:15 [place] Encounters Combined list of: 1) Encounters from Department of Veterans Affairs facilities going back up to thelast 18 months. 2) Encounters from the Department of Defense facilities going back up to 280 months. Location Location Details Encounter Type Encounter Number Reason For Visit Attending Provider ADM Date DC Date Status Disposition Source [facility] Outpatient Encounter [id number] 06/06 [facility] Outpatient Encounter [id number] 06/30 [facility] Outpatient Encounter [id number] 07/07 [facility] Outpatient Encounter [id number] 08/04 [facility] Outpatient Encounter [id number] 08/06 [facility] Outpatient Encounter [id number] 08/25 [facility] Outpatient Encounter [id number] 08/29 [facility] OFFICE O/P EST MOD 30-39 MIN [id number] Diagnos is: ICD-10- CM N18.30 Chronic kidney disease , stage 3 unspeci fied
YOBANI BIRCH 09/05 [facility] MTMS BY PHARM ADDL 15 MIN [id number] Diagnos is: ICD-10- CM 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< br/> NIKHILSOPHIA MEMBRENO IE 11/07 [facility] IE [facility] QNHP OL DIG ASSMT&MGMT 5-10 [id number] Diagnos is: ICD-10- CM 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< br/> Charlene COOK 01/03 /2024 [facility] Outpatient Encounter [id number] YOBANI BIRCH 12/11 [facility] [place] MTMS BY PHARM ADDL 15 MIN [id number] Diagnos is: ICD-10- CM 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< br/> NIKHIL,SOPHIA IE 12/12 [place] [facility] Outpatient Encounter [id number] WALDEMAR MCCALLUM 12/13 [facility] Outpatient Encounter [id number] 01/16 [facility] Outpatient Encounter [id number] 01/16 [facility] Outpatient Encounter [id number] 01/16 [facility] Outpatient Encounter [id number] 01/21 [facility] [place] MTMS BY PHARM ADDL 15 MIN [id number] Diagnos is: ICD-10- CM 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< br/> NIKHIL,SOPHIA IE 01/29 [place] [facility] Outpatient Encounter [id number] 01/30 [facility] Outpatient Encounter [id number] 01/30 [facility] [place] MTMS BY PHARM ENTERPRISE DATA ARCHITECT 15 MIN [id number] Diagnos is: ICD-10- CM 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< br/> NIKHIL,SOPHIA IE 02/06 [facility] [place] [place] MTMS BY PHARM ADDL 15 MIN [id number] Diagnos is: ICD-10- CM 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< br/> NIKHIL,SOPHIA IE 03/04 [facility] QNHP OL DIG ASSMT&MGMT 5-10 [id number] Diagnos is: ICD-10- CM 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< br/> SHAHNAZ COLLADO 03/04 [facility] Outpatient Encounter [id number] 04/02 [facility] Out[facility] Encounter [id number] 04/04 [facility] Outpatient Encounter [id number] 04/05 [facility] [place] MTMS BY PHARM ADDL 15 MIN [id number] Diagnos is: ICD-10- CM 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< br/> NIKHIL,SOPHIA IE 04/15 [facility] [place] OFFICE O/P EST MOD 30 MIN [id number] Diagnos is: ICD-10- CM 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 [facility] History of tobacco use MT-TOBACCO QUIT 15 YRS OR MORE 09/03/2024 [facility] History of tobacco use MT-TOBACCO FORMER USER 09/05/2023 [facility] History of tobacco use MT-TOBACCO FORMER USER 09/08/2022 [facility] History of tobacco use VA-TOBACCO FORMER USER 07/08/2021 [facility] History of tobacco use VA-TOBACCO NEVER USED 05/28/2020 [facility] D History of tobacco use MT-TOBACCO QUIT 15 YRS OR MORE 05/29/2018 [facility] History of tobacco use LIFETIME NON-TOBACCO USER 05/29/2018 [facility] History of tobacco use QUIT TOBACCO USE > 7 YEARS AGO 05/04/2017 [facility] History of tobacco use QUIT TOBACCO USE > 7 YEARS AGO 04/28/2016 smoked for 4 years about 2 pack a week quit 50 years ago [facility] History of tobacco use QUIT TOBACCO USE > 7 YEARS AGO 08/20/2013 22 yo [facility] Plan of Care List of future care activities from Department of Veterans Affairs facilities. Additional future care activities may be listed in the Assessment and Plan section. Date/Time Care Activity Care Activity Detail Facili ty 10/25/2024 AMBULATORY - MEDICINE AM[facility]AT[facility]
[2024-10-17 05:43] LABS: Basophils Percent Auto 0.3 % (0-2); Eosinophils Absolute Auto 0.2 X10*3/uL (0.0-0.4); Eosinophils Percent Auto 3.5 % (0-4); Hematocrit 38.3 % (42.0-52.0); Imm Gran Abs Auto 0.02 X10*3/uL (0.00-0.03); Imm Gran Pct Auto 0.3 % (0.0-0.4); Lymphocytes Absolute Auto 1.4 X10*3/uL (1.2-4.9); Lymphocytes Percent Auto 21.4 % (20-40); MANUAL DIFF FLAG NO; Mean Corpuscular HGB Conc 33.9 g/dl (31.0-36.0); Mean Corpuscular Hemoglobin 31.3 pg (27.0-33.0); Mean Corpuscular Volume 92.3 fL (80.0-98.0); Mean Platelet Volume 10.6 fL (9.4-12.4); Monocytes Absolute Auto 0.7 X10*3/uL (0.1-1.2); Monocytes Percent Auto 9.9 % (2-11); Neutrophils Absolute Auto 4.2 x10*3/uL (2.0-8.3); Neutrophils Percent Auto 64.6 % (45-73); Platelet Count 154 X10*3/uL (160-400); Red Blood Count 4.15 X10*6/uL (4.60-5.80); Red Cell Distribution Width 12.8 % (11.0-16.0); White Blood Count 6.5 X10*3/uL (4.8-10.8)
[2024-10-17 06:00] LABS: Anion Gap 16 (12-20); Blood Urea Nitrogen 43 mg/dL (9-16); Calcium 9.3 mg/dL (8.4-10.2); Carbon Dioxide 26 mmol/L (22-29); Chloride 104 mmol/L (96-108); Creatinine Clr Calc Pharmacy 36.8; Estimated Glomerular Filt Rate 35; Glucose Random 81 mg/dL (60-115); Potassium 3.9 mmol/L (3.3-5.1); Sodium 142 mmol/L (135-145)
[2024-10-17 06:15] VITALS: BP 111/61; PULSE 56; RESP 20; TEMP 36.6; O2SAT 95
[2024-10-17 07:40] LABS: Glucose, Whole Blood 108 mg/dL (60-115)
[2024-10-17 08:22] VITALS: BP 119/53; PULSE 62; RESP 24; O2SAT 95
[2024-10-17] MEDS: 0.9 % Sodium Chloride Flush 3 ML SYRINGE IVFLUSH (08:22)
[2024-10-17] MEDS: Sertraline HCL 100 MG TABLET 200 MG PO (08:58)
[2024-10-17] MEDS: Aspirin Enteric Coated 81 MG TABLET.DR PO (08:58)
[2024-10-17] MEDS: Famotidine 20 MG TABLET PO (08:58)
[2024-10-17] MEDS: Atorvastatin Calcium 80 MG TABLET PO (08:58)
[2024-10-17 08:59] VITALS: BP 119/53
[2024-10-17] MEDS: Apixaban 2.5 MG TABLET PO (08:59)
[2024-10-17] MEDS: buPROPion HCl XL 150 MG TAB.ER.24H PO (08:59)
[2024-10-17] MEDS: Metoprolol Tartrate 12.5 MG HALFTAB PO (08:59)
[2024-10-17] MEDS: Torsemide 20 MG TABLET PO (08:59)
--- NOTE | 2024-10-17 09:44 | ECG_ITS ---
Test Reason : RHYTHM CONVERSION Blood Pressure : / mmHG Vent. Rate : 060 BPM Atrial Rate : 060 BPM P-R Int : 210 ms QRS Dur : 116 ms QT Int : 440 ms P-R-T Axes : 044 -25 041 degrees QTc Int : 440 ms Sinus rhythm with 1st degree A-V block Incomplete left bundle branch block Borderline ECG When compared with ECG of 16-OCT-2024 12:02, Sinus rhythm has replaced Atrial fibrillation Incomplete left bundle branch block is now Present Referred By: Mary Patel Electronically Signed By:URI GARZA MD
--- NOTE | 2024-10-17 10:04 | PC.NURSE ---
Pt being admitted for new onset Afib, noted to be in SR on tele. EKG preformed showing SR, unsure when pt converted. MD Joshua made aware via secure messaging.
--- NOTE | 2024-10-17 10:33 | MHC.CM.PN ---
CM met with Patient at bedside, in the ED and addressed CHERY with him (original was given to Patient and a copy will be placed on the chart). Patient lives in a condo with his and he recently began using a walker.Patient has home O2 and CPAP, both supplied by [facility] and he required no services [employer]. Home/self care is the goal and CM has initiated and will follow for dc planning. PCP is Dr. Aldo Westfall and will transport to home.
--- NOTE | 2024-10-17 10:52 | P.CONCA_ITS ---
History of Present Illness History of Present Illness Date of Service: 10/17/24 Requesting physician: Mary Patel Consult reason: atrial fibrillation and aortic stenosis Chief complaint: Symptomatic new onset afib Narrative: I was consulted to see Dave in cardiology consultation today, he was referred from Dr. Westfall's office yesterday after he was not doing well. He was noted to be in new onset atrial fibrillation. He was feeling lethargic, more short of breath and was noted to be hypoxic in the office. He subsequently was referred here and was feeling better by the time he came here and then subsequently converted to sinus rhythm. By the time he had an echocardiogram he was in normal sinus rhythm has been feeling well. He said overnight he has been feeling well. No recurrent atrial fibrillation overnight. Patient has since been here has been hemodynamically stable. Patient follows with Dr. Hutson but has not had an appointment for few years. He has prior history of coronary disease status post coronary artery bypass grafting, insulin-requiring diabetes, aortic stenosis which seems to have progressed and last echocardiogram in January this year at shown paradoxical low-flow severe aortic stenosis. Patient also has underlying chronic respiratory failure related to asbestosis and is on oxygen at home. Yesterday came to PCP's office as he was not feeling well and then was referred to the emergency room after discussing with . No exertional chest pain. No recent orthopnea, PND, leg edema. Review of Systems 2 Constitutional: Constitutional: Reports fatigue and Reports weakness Eyes: Eyes: Reports no additional eye complaints Cardiovascular: Cardiovascular: Denies chest pain, Denies syncope, Denies rapid heart rate, Denies lightheadedness, Denies Loss of Consciousness, Denies palpitations and Reports dyspnea on exertion Respiratory: Respiratory: Reports no additional respiratory complaints and Reports dyspnea on exertion Gastrointestinal: Gastrointestinal: Reports no additional gastrointestinal complaints Musculoskeletal: Musculoskeletal: Reports no additional musculoskeletal complaints Neurologic: Reports system reviewed and no additional complaints, except as documented, Denies syncope and Reports weakness Endocrine: Endocrine: Reports fatigue and Denies palpitations [facility] Past Medical History Medical History Hypoxia Pulmonary nodules Chronic restrictive lung disease Chronic respiratory failure Pulmonary fibrosis Asbestosis Family History Family History Mother Ovarian cancer Father Heart attack Brother Heart attack Sister Diabetes Surgical History Surgical History History of open heart surgery Social History Social History Alcohol intake: former Year quit: 1989 Patient Tobacco Use Status: Former Tobacco user Tobacco use type: Cigarette Years Smoked: 8 Years Advance Directives: No Advance Directives Information Provided: Yes Do you have a plan to hurt others: No Plan Nutrition Risks: No Nutritional Risk service: Yes Meds Allergies Allergy/AdvReac Type Severity Reaction Status Date / Time No Known Allergies Allergy Verified 10/16/24 11:47 [No Known Allergies*] Active Medications: Current Medications Acetaminophen (Acetaminophen 325 Mg Tablet) 650 mg PO Q6H PRN PRN Reason: Pain, Mild (Pain Scale 1-3), fever or headache Apixaban (Apixaban 2.5 Mg Tablet) 2.5 mg PO BID [facility] Last Admin: 10/17/24 08:59 Dose: 2.5 mg Aspirin (Aspirin Enteric Coated 81 Mg Tablet.Dr) 81 mg PO DAILY [facility] Last Admin: 10/17/24 08:58 Dose: 81 mg Atorvastatin Calcium (Atorvastatin Calcium 80 Mg Tablet) 80 mg PO DAILY [facility] Last Admin: 10/17/24 08:58 Dose: 80 mg Benzonatate (Benzonatate 100 Mg Capsule) 100 mg PO TID PRN PRN Reason: Cough Bupropion HCl (Bupropion Hcl Xl 150 Mg Tab.Er.24h) 150 mg PO DAILY [facility] Last Admin: 10/17/24 08:59 Dose: 150 mg Calcium Carbonate (Calcium Carbonate 750 Mg Tab.Chew) 750 mg PO Q4H PRN PRN Reason: Heartburn Dronedarone (Dronedarone Hcl 400 Mg Tablet) 400 mg PO BID [facility] Famotidine (Famotidine 20 Mg Tablet) 20 mg PO DAILY [facility] Last Admin: 10/17/24 08:58 Dose: 20 mg Glucose (Glucose Gel 15 Gm Gel..Gram.) 15 gm PO Q15M PRN; Protocol PRN Reason: per Hypoglycemia Standing Ord. Dextrose (D10) 250 mls @ 750 mls/hr IV Q15M PRN; Protocol PRN Reason: per Hypoglycemia Standing Ord. Insulin Glargine (Insulin Glargine,Hum.Rec.Anlog 100 Unit/Ml 10 Ml Vial) 22 unit SUBCUT BEDTIME [facility] Last Admin: 10/16/24 21:14 Dose: 22 unit Insulin Human Lispro (Insulin Lispro 100 Unit/Ml 3 Ml Vial) 0 unit SUBCUT QIDACHS [facility]; Protocol Last Admin: 10/17/24 08:26 Dose: Not Given Magnesium Hydroxide (Milk Of Magnesia 30 Ml Oral.Susp) 30 ml PO DAILY PRN PRN Reason: Constipation Melatonin (Melatonin 3 Mg Tablet) 6 mg PO BEDTIME PRN PRN Reason: Insomnia Last Admin: 10/16/24 23:26 Dose: 6 mg Metoprolol Tartrate (Metoprolol Tartrate 12.5 Mg Halftab) 12.5 mg PO BID [facility]; Protocol Last Admin: 10/17/24 08:59 Dose: 12.5 mg Ondansetron HCl (Ondansetron Hcl 4 Mg/2 Ml Vial) 4 mg IVPUSH Q8H PRN PRN Reason: Nausea and Vomiting Sertraline HCl (Sertraline Hcl 100 Mg Tablet) 200 mg PO DAILY [facility] Last Admin: 10/17/24 08:58 Dose: 200 mg Sodium Chloride (0.9 % Sodium Chloride Flush 3 Ml Syringe) 3 ml IVFLUSH QSHIFT [facility] Last Admin: 10/17/24 08:22 Dose: 3 ml Torsemide (Torsemide 20 Mg Tablet) 20 mg PO DAILY [facility]; Protocol Last Admin: 10/17/24 08:59 Dose: 20 mg Home Medications ?Medication ?Instructions ?Recorded ?Confirmed ?Last Taken ?Type aspirin 81 mg tablet,delayed 81 mg PO DAILY 12/24/20 10/16/24 Unknown History release (Adult Low Dose Aspirin) atorvastatin 80 mg tablet 80 mg PO DAILY 12/24/20 10/16/24 Unknown History metoprolol tartrate 25 mg tablet 12.5 mg PO BID 12/24/20 10/16/24 Unknown History sertraline 100 mg tablet 200 mg PO DAILY 12/24/20 10/16/24 Unknown History insulin glargine 100 unit/mL 30 unit subcut BEDTIME 05/24/22 10/16/24 Unknown History subcutaneous solution (Lantus U-100 Insulin) Oxygen Home Use 12/08/22 Unknown History nebulizers 12/08/22 Unknown History famotidine 20 mg tablet 20 mg PO DAILY 02/07/24 10/16/24 Unknown History bupropion HCl 150 mg tablet,12 hr 150 mg PO DAILY 10/16/24 10/16/24 Unknown History sustained-release torsemide 20 mg tablet 20 mg PO DAILY 10/16/24 10/16/24 Unknown History Physical Exam 2 Vital Signs: Vital Signs: Last Vital Signs Temp 97.9 F 10/17/24 06:15 Pulse 62 10/17/24 08:22 Resp 24 H 10/17/24 08:22 BP 119/53 L 10/17/24 08:59 Pulse Ox 95 10/17/24 08:22 O2 Del Method Nasal Cannula 10/17/24 08:22 O2 Flow Rate 2 10/17/24 08:22 Oxygen Flow Rate 3 10/16/24 11:46 BMI result Body Mass Index 32.1 Const: General: cooperative, comfortable, no acute distress, alert and awake Nutritional Appearance: obese Orientation/consciousness: patient oriented x3 Limitations: no limitations HEENT: Head: Yes normocephalic and Yes atraumatic Neck: Neck: Yes trachea midline, Yes supple and Yes no JVD Carotids: d elayed carotid upstroke Resp: Effort & Inspection: normal respiratory effort Auscultation: no rales, no wheezes and diminished lung sounds Cardio: Jugular venous distension: no JVD Rate: regular rate Rhythm: r egular rhythm Heart sounds: S1 normal heart sound present, no click, no gallops and Murmur heart sound present systolic late, decrescendo and crescendo GI: Auscultation: normal bowel sounds Skin: General skin exam: no rashes or lesions noted Neuro: General: patient oriented x3 and no focal motor deficits Extrem: General: Yes no clubbing, cyanosis or edema Objective Labs and Meds 10/17/24 04:38 10/17/24 04:38 Lab results: Laboratory Results - last 24 hr 10/16/24 10/16/24 10/17/24 12:09 21:02 04:38 WBC 8.0 6.5 RBC 4.37 L 4.15 L Hgb 14.0 13.0 L Hct 39.5 L 38.3 L MCV 90.4 92.3 MCH 32.0 31.3 MCHC 35.4 33.9 RDW 12.8 12.8 Plt Count 158 L 154 L MPV 9.9 10.6 Immature Gran % (Auto) 0.5 H 0.3 Neut % (Auto) 74.2 H 64.6 Lymph % (Auto) 15.3 L 21.4 Jewell % (Auto) 7.8 9.9 Eos % (Auto) 2.1 3.5 Baso % (Auto) 0.1 0.3 Lymph # (Auto) 1.2 1.4 Jewell # (Auto) 0.6 0.7 Eos # (Auto) 0.2 0.2 Baso # (Auto) 0.0 0.0 Abs Immat Gran (auto) 0.04 H 0.02 Absolute Neuts (auto) 6.0 4.2 Absolute Nucleated RBC 0.000 0.000 Nucleated RBC % (auto) 0.0 0.0 PT 11.5 INR 1.0 Sodium 141 142 Potassium 4.4 3.9 Chloride 104 104 Carbon Dioxide 27 26 Anion Gap 14 16 BUN 36 H 43 H Creatinine 1.91 H 1.88 H Estim Creat Clear Calc 36.2 36.8 Estimated GFR 34 35 POC Glucose 236 H Random Glucose 216 H 81 Calcium 9.7 D 9.3 Magnesium 2.2 Total Bilirubin 0.5 AST 25 ALT 23 Alkaline Phosphatase 82 Troponin I High Sens 10.9 B-Natriuretic Peptide 667 H Total Protein 7.1 Albumin 3.7 Influenza Type A (PCR) NEGATIVE Influenza Type B (PCR) NEGATIVE RSV RNA Qual (PCR) NEGATIVE SARS-CoV-2 RNA (RT-PCR) NEGATIVE 10/17/24 07:29 WBC RBC Hgb Hct MCV MCH MCHC RDW Plt Count MPV Immature Gran % (Auto) Neut % (Auto) Lymph % (Auto) Jewell % (Auto) Eos % (Auto) Baso % (Auto) Lymph # (Auto) Jewell # (Auto) Eos # (Auto) Baso # (Auto) Abs Immat Gran (auto) Absolute Neuts (auto) Absolute Nucleated RBC Nucleated RBC % (auto) PT INR Sodium Potassium Chloride Carbon Dioxide Anion Gap BUN Creatinine Estim Creat Clear Calc Estimated GFR POC Glucose 108 Random Glucose Calcium Magnesium Total Bilirubin AST ALT Alkaline Phosphatase Troponin I High Sens B-Natriuretic Peptide Total Protein Albumin Influenza Type A (PCR) Influenza Type B (PCR) RSV RNA Qual (PCR) SARS-CoV-2 RNA (RT-PCR) Imaging Radiologist's impression: Impressions Chest X-Ray 10/16/24 11:47 IMPRESSION: No acute abnormality of chest. Electronically signed by: Dipesh Hamilton MD 10/16/2024 03:18 PM [facility] Assessment and Plan (1) Paroxysmal atrial fibrillation: Status: Acute Patient with new onset atrial fibrillation with significant hemodynamic compromise and symptoms related to loss of AV synchrony with low cardiac output syndrome. Patient doing well with maintenance of rhythm. Patient is feeling much better. I think he will benefit from rhythm management. Given his advanced respiratory dysfunction as well as chronic kidney disease as well as coronary disease I think the best medication for now would be Multaq. Please provide him with a [facility] agree with full oral anticoagulation, started on Eliquis therapy. Avoidance of stimulants was discussed advised to call me with new symptoms. If he has recurrent AFib can consider ablation as well. (2) Aortic stenosis: Status: Acute Aortic stenosis clinically appears to be severe. Echocardiogram yesterday showed lesser gradient probably from technique issues. Most likely has paradoxical low-flow aortic stenosis. Will need further evaluation for the same with cardiac catheterization. Will set up for follow-up visit with Dr. Hutson in the near future. Management of aortic stenosis discussed with him. (3) Coronary artery disease: Status: Acute Coronary disease appears to be stable. Continue aggressive risk factor modification. Continue high-intensity statin therapy. Aspirin can be withheld given that he has been started on oral anticoagulation therapy with Eliquis. Blood pressure is well optimized. Diabetes under your care. Will follow-up as outpatient in 7-10 days. Thank you for allowing me to partake in his care Procedures Date of Service Date of Service: 10/17/24
[2024-10-17 11:17] VITALS: BP 127/68; PULSE 76; RESP 18; O2SAT 93
[2024-10-17] MEDS: Dronedarone HCl 400 MG TABLET PO (11:17)
--- NOTE | 2024-10-17 11:44 | MHC.CM.PN ---
Patient has been medically cleared for dc to home today, with services. A referral has been made to [facility], who has been made aware of today's dc.
--- NOTE | 2024-10-17 12:01 | PM.DS ---
DS: Providers Provider Date of Service: 10/17/24 Date of admission: 10/16/24 15:39 Date of discharge: 10/17/24 Primary care physician: Aldo Westfall MD Consults: 10/16/24 12:49 Consult to Cardiology Stat Consulting Provider: [facility] Reason for consultation: Severe , new onset AFib Has provider been notified: Yes 10/16/24 15:39 Consult to Cardiology Routine Consulting Provider: [facility] Reason for consultation: New onset symptomatic AFib Has provider been notified: Yes DS: Diagnosis Discharge Diagnosis (1) Paroxysmal atrial fibrillation: Status: Acute (2) Aortic stenosis: Status: Acute (3) Coronary artery disease: Status: Acute (4) Atrial fibrillation, new onset: Status: Acute DS: Summary Hospital Course Hospital Course: Admission note HPI Pt is an 79-year-old male with a PMH significant for COPD, 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 Earlier today patient was at routine wellness check and PCP's office (follows with Dr. Palmer) with noted to be in AFib. Patient reports has been experiencing SOB, fatigue, weakness, and light headedness since yesterday. Denies palpitations, chest pain/pressure. Patient reports he ?just knew something was off?. Patient reports has had similar episodes in the past of feeling fatigued, short of breath, and weak. Reports was noted to have been in and out of AFib immediately after CABG in 2019, though never started on medications. Most recently patient notes in July and August he likewise felt fatigued and weak, and was oxygen dependent for 1.5 months before finally feeling better. Patient denies cough, orthopnea, or lower leg edema. No fever, chills, nausea, vomiting, abdominal pain. Of note, patient reports a long history of right sided epistaxis. Patient experiences 10+ episodes yearly of difficult to control nosebleeds. ? In the ED pt's vitals stable and WNL. Labs were significant for BNP 667, otherwise grossly unremarkable and around baseline for patient. No leukocytosis. Stable H&H. No significant electrolyte abnormalities. Creatinine 1.91, at baseline. Hepatic function WNL. Troponin WNL at 10.9. Tested negative for flu, RSV, COVID. CXR showed no acute abnormality. EKG demonstrated atrial fibrillation with nonspecific ST abnormalities. Pt was treated with Eliquis 2.5 mg. Pt will be admitted to the hospital under observation for treatment and further evaluation of symptomatic new onset AFib. Hospital course The patient was admitted for evaluation of symptomatic new onset A as he was noted to be in AFib at PCP wellness visit reporting SOB, fatigued, lightheadedness which he had similar intermittent episodes for some time now. EKG showed AFib with slow rate. started on apixaban 2.5 mg p.o. b.i.d given his age and Cr level. Echocardiogram done showing moderatly severe aortic stenosis as he was evaluated by Cardiology recommending starting Multaq as he converted back to sinus rhythm overnight and to discontinue Aspirin for now. the patient reports Hx of right-sided epistaxis with 10+ episodes yearly, bleeding sometimes very difficult to control. He will be on Eliquis. Advised to follow up outpatient with ENT for evaluation/treatment. No bleeding while inpatient. He was able to ambulate safely with nursing staff with no reported concerns of unsteadiness or near falls. Discharge plan Avoid stimulants Start Eliquis 2.5 mg two times a day Start Multaq 400 mg two times a day Follow with cardiology as outpatient The patient made quicker than expected recovery and will not need 2 overnight hospital stay. Time Attestation Discharge Coordination Time (in mins): 37 Quality: Safe Use of Opioids Does Pt have an Active Cancer Diagnosis on the Problem List?: No Quality: Stroke Does the patient have a stroke diagnosis?: No Physical Exam Vital Signs: Vital Signs: Last Vital Signs Temp 97.9 F 10/17/24 06:15 Pulse 76 10/17/24 11:17 Resp 18 10/17/24 11:17 BP 127/68 10/17/24 11:17 Pulse Ox 93 10/17/24 11:17 O2 Del Method Nasal Cannula 10/17/24 11:17 O2 Flow Rate 2 10/17/24 11:17 Oxygen Flow Rate 3 10/16/24 11:46 BMI result Body Mass Index 32.1 Const: Other: Constitutional : Awake, interactive, not in distress Neck : Normal inspection, Supple Cardiovascular : RRR, no JVP, no lower extremity edema Respiratory : good bilateral air entry, no crackles, wheezes or rhonchi Gastrointestinal: soft, lax, Normal bowel sounds, Non tender Skin : Warm, Dry Neurological : Alert & oriented x3, No focal deficit DS: Data Data Completed and Pending Labs on day of discharge: Laboratory Results - last 24 hr 10/16/24 10/16/24 10/17/24 12:09 21:02 04:38 WBC 8.0 6.5 RBC 4.37 L 4.15 L Hgb 14.0 13.0 L Hct 39.5 L 38.3 L MCV 90.4 92.3 MCH 32.0 31.3 MCHC 35.4 33.9 RDW 12.8 12.8 Plt Count 158 L 154 L MPV 9.9 10.6 Immature Gran % (Auto) 0.5 H 0.3 Neut % (Auto) 74.2 H 64.6 Lymph % (Auto) 15.3 L 21.4 [place] % (Auto) 7.8 9.9 Eos % (Auto) 2.1 3.5 Baso % (Auto) 0.1 0.3 Lymph # (Auto) 1.2 1.4 [place] # (Auto) 0.6 0.7 Eos # (Auto) 0.2 0.2 Baso # (Auto) 0.0 0.0 Abs Immat Gran (auto) 0.04 H 0.02 Absolute Neuts (auto) 6.0 4.2 Absolute Nucleated RBC 0.000 0.000 Nucleated RBC % (auto) 0.0 0.0 PT 11.5 INR 1.0 Sodium 141 142 Potassium 4.4 3.9 Chloride 104 104 Carbon Dioxide 27 26 Anion Gap 14 16 BUN 36 H 43 H Creatinine 1.91 H 1.88 H Estim Creat Clear Calc 36.2 36.8 Estimated GFR 34 35 POC Glucose 236 H Random Glucose 216 H 81 Calcium 9.7 D 9.3 Magnesium 2.2 Total Bilirubin 0.5 AST 25 ALT 23 Alkaline Phosphatase 82 Troponin I High Sens 10.9 B-Natriuretic Peptide 667 H Total Protein 7.1 Albumin 3.7 Influenza Type A (PCR) NEGATIVE Influenza Type B (PCR) NEGATIVE RSV RNA Qual (PCR) NEGATIVE SARS-CoV-2 RNA (RT-PCR) NEGATIVE 10/17/24 07:29 WBC RBC Hgb Hct MCV MCH MCHC RDW Plt Count MPV Immature Gran % (Auto) Neut % (Auto) Lymph % (Auto) [place] % (Auto) Eos % (Auto) Baso % (Auto) Lymph # (Auto) [place] # (Auto) Eos # (Auto) Baso # (Auto) Abs Immat Gran (auto) Absolute Neuts (auto) Absolute Nucleated RBC Nucleated RBC % (auto) PT INR Sodium Potassium Chloride Carbon Dioxide Anion Gap BUN Creatinine Estim Creat Clear Calc Estimated GFR POC Glucose 108 Random Glucose Calcium Magnesium Total Bilirubin AST ALT Alkaline Phosphatase Troponin I High Sens B-Natriuretic Peptide Total Protein Albumin Influenza Type A (PCR) Influenza Type B (PCR) RSV RNA Qual (PCR) SARS-CoV-2 RNA (RT-PCR) Imaging Chest x-ray: Radiologist's impression: ITS Impressions Chest X-Ray 10/16/24 11:47 IMPRESSION: No acute abnormality of chest. Electronically signed by: Dipesh Hamilton MD 10/16/2024 03:18 PM [facility] Discharge Plan Discharge Anticipated Discharge Date/Time: 10/17/24 11:32 Patient Disposition: Home, Self-Care Discharge Diagnosis: New onset atrial fibrillation Referrals: Tonja MACIEL [Outside] - 1 Week Aldo Westfall MD [Primary Care Provider] - 1 Week Discharge Medications: New Multaq 400 mg Tablet 400 mg PO BID Qty: 60 1RF Eliquis 2.5 mg Tablet 2.5 mg PO BID Qty: 180 0RF Continued bupropion HCl 150 mg tablet sustained-release 12 hr 150 mg PO DAILY torsemide 20 mg tablet 20 mg PO DAILY sertraline 100 mg tablet 200 mg PO DAILY atorvastatin 80 mg tablet 80 mg PO DAILY metoprolol tartrate 25 mg tablet 12.5 mg PO BID Lantus U-100 Insulin 100 unit/mL solution 30 unit subcut BEDTIME (DME) nebulizers Misc See Rx Instructions .ROUTE Rx Instructions: As directed (DME) Oxygen Home Use Kit See Rx Instructions .ROUTE Rx Instructions: As directed famotidine 20 mg tablet 20 mg PO DAILY Discontinued aspirin [Adult Low Dose Aspirin] 81 mg tablet,delayed release (DR/EC) 81 mg PO DAILY Discharge Orders: Discharge Order (Routine); Ordered 10/17/24 Ordered By: Mary Patel Diet: Diabetic diet Activity on Discharge: As tolerated Stand Alone Forms: Patient Portal Discharge page Print Language: Greenlandic Care Plan Goals: Avoid stimulants Start Eliquis 2.5 mg two times a day Start Multaq 400 mg two times a day Follow with cardiology as outpatient Health Concerns: New Atrial fibrillation Plan of Treatment: Multaq Eliquis Assessment: as above
--- NOTE | 2024-10-17 12:03 | MHC.CM.PN ---
Per MD, Patient can go home, self care; [facility] has been cancelled.
[2024-10-17 12:21] VITALS: BP 127/68; PULSE 76; RESP 18; TEMP 36.6; O2SAT 93
== END 2024-10-17 12:07 | disposition home or self-care (01) ==
LOC: HO.ED 13:40 → HO.EDOVER 15:49
PROVIDERS: Registered Nurse Emergency; Admitting Provider Student in an Organized Health Care Education/Training Program; Emergency Provider Emergency Medicine; PCP Family Medicine; Visit Provider Student in an Organized Health Care Education/Training Program
DX: I48.0 Paroxysmal atrial fibrillation (principal); J61 Pneumoconiosis due to asbestos and other mineral fibers; I35.0 Nonrheumatic aortic (valve) stenosis; I25.10 Atherosclerotic heart disease of native coronary artery without angina pectoris; R53.83 Other fatigue; J44.9 Chronic obstructive pulmonary disease, unspecified; I10 Essential (primary) hypertension; E11.9 Type 2 diabetes mellitus without complications; G47.33 Obstructive sleep apnea (adult) (pediatric); R06.02 Shortness of breath; Z79.899 Other long term (current) drug therapy; Z95.1 Presence of aortocoronary bypass graft; Z99.89 Dependence on other enabling machines and devices; Z79.4 Long term (current) use of insulin; Z03.818 Encounter for observation for suspected exposure to other biological agents ruled out
CPT/HCPCS: 0241U; 36415; 71046; 80048; 80053; 82947; 83735; 83880; 84484; 85025; 85610; 93005; 93306; 99222; 99285; Q9957

== ENCOUNTER 2024-10-16 15:39 | Outpatient (BNV) | payer MEDICARE, OTHER, SELFPAY | END 2024-10-17 09:44 | PROVIDERS: Admitting Provider Student in an Organized Health Care Education/Training Program; Emergency Provider Emergency Medicine; PCP Family Medicine; Visit Provider Internal Medicine Cardiovascular Disease | DX: I44.0 Atrioventricular block, first degree (principal); I44.7 Left bundle-branch block, unspecified | CPT/HCPCS: 93010 ==

== ENCOUNTER → 2024-10-16 15:39 | Outpatient (BNV) | payer MEDICARE, OTHER, SELFPAY | PROVIDERS: Admitting Provider Student in an Organized Health Care Education/Training Program; Emergency Provider Emergency Medicine; PCP Family Medicine; Visit Provider Internal Medicine Cardiovascular Disease | DX: I48.0 Paroxysmal atrial fibrillation (principal); I35.0 Nonrheumatic aortic (valve) stenosis; I25.10 Atherosclerotic heart disease of native coronary artery without angina pectoris | CPT/HCPCS: 99222 ==

== ENCOUNTER → 2024-10-16 15:39 | Outpatient (BNV) | payer MEDICARE, OTHER, SELFPAY | PROVIDERS: Admitting Provider Student in an Organized Health Care Education/Training Program; Emergency Provider Emergency Medicine; PCP Family Medicine; Visit Provider Student in an Organized Health Care Education/Training Program | DX: I48.91 Unspecified atrial fibrillation (principal); I48.0 Paroxysmal atrial fibrillation; I35.0 Nonrheumatic aortic (valve) stenosis; I25.10 Atherosclerotic heart disease of native coronary artery without angina pectoris | CPT/HCPCS: 99222; 99239 ==

== ENCOUNTER 2024-11-07 11:46 | Outpatient (REF) | payer MEDICARE, OTHER, SELFPAY ==
--- OUTSIDE RECORDS SUMMARY | 2024-11-07 12:54 | XMS_ITS | Encounter Summary ---
Author Name [facility] [place] Organization [facility] [place] [facility] [place] Address [address] [place] [id number] Care Team Providers Care Quill Cleaning Machine Operator Name Role Phone JUANITA BIRCH [...] Bradford's Name Patient's Relationship to Policy Bradford [facility] MEDICARE SUPPLEMEN HANS MA IND Nov 06, 2016 MEDICAR E SUPPLEM E [id number] R[address] ODELL PATIENT MEDICARE (WNR) MEDICARE (M) PART B May 06, 2008 PART B [id number] [facility] Rao ODELL PATIENT MEDICARE (WNR) MEDICARE (M) PART A May 06, 2008 PART A [id number] [facility] [phone] Rao ODELL PATIENT MEDICARE (WNR) MEDICARE (M) PART A May 06, 2008 PART A [id number] [phone] [id number] Rao ODELL PATIENT MEDICARE (WNR) MEDICARE (M) PART B May 06, 2008 PART B [id number] [phone] Rao ODELL PATIENT Selected Encounter This section includes the information on record at [place] for the Encounter. Date/Time Encounter Type Encounter Description Reason Provider Source Jan 30, 2024 09:00 AM MTMS BY PHARM JB 15 MIN CLINICAL PHARMACY ICD-10-CM E11.65 Type 2 diabetes mellitus with hyperglycemia IDA WONG Darrel Encounter Template Text not used by [place] Assessments - Encounter Diagnoses This section includes the primary and secondary diagnoses documented for the Encounter. Date/Time Primary/Secondary Diagnosis Diagnosis Name Provider Source Jan 30, 2024 09:34 AM PRIMARY Type 2 diabetes mellitus with hyperglycemia IDA WONG [facility] Plan of Treatment: Future Appointments (+ 6 months) and Future Tests (+/- 45 days) The Plan of Treatment section includes future care activities for the patient [facility] This section includes future appointments and future orders which are active, pending or scheduled. Future Appointments This section includes appointments that were scheduled to occur 6 months from the date of the Encounter, up to a maximum of 20 appointments. The data comes from all [place] treatment [facility]. Appointment Date/Time Appointment Type Appointme nt Facility Name Feb 07, 2024 09:30 AM AMBULATORY - MEDICINE [facility] Mar 04, 2024 09:00 AM [facility] Apr 15, 2024 09:00 AM [facility] - [facility]ICINE [facility] Active, Pending, and Scheduled Orders This section includes a listing of several types of active, pending, and scheduled orders, including clinic medications orders, diagnostic test orders, procedure orders and consult orders; where the start date of the order is 45 days before the date of the Encounter or 45 days after the date of theEncounter. The data comes from all [facility]. Test Date/Time Test Type Test Details Facility Name Mar 04, 2024 12:00 AM Laboratory - Chemistry Order HEMOGLOBIN A1C PANEL BLOOD (LAV-BLOOD) [facility] Mar 04, 2024 12:00 AM Laboratory - Chemistry Order CREATININE (eGFR 2020) BLOOD (SST-SERUM) [facility] Social History: Smoking Status (Most current) and Tobacco Use (All prior to encounter date) This section includes the most current, and the historical, smoking and tobacco- related health factors from the [place] facility where the Encounter took place. Current Smoking Status This section includes the most current smoking, or tobacco-related health factor, from the [facility] where the Encounter took place. Date/Time Current Smoking Status Comment Facil ity Sep 05, 2023 10:00 AM VA-TOBACCO QUIT 15 YRS OR MORE [facility] Tobacco Use History This section includes a history of the smoking, or tobacco-related health factors, that were collected on or before the date of the Encounter. The data comes from the [place] facility where the Encounter took place. Date/Time Smoking Status/Tobacco Use Comment F acility Sep 05, 2023 10:00 AM VA-TOBACCO NEVER USED [facility] Sep 05, 2023 10:00 AM VA-TOBACCO QUIT 15 YRS OR MORE [facility] Sep 08, 2022 11:30 AM VA-TOBACCO FORMER USER [facility] Sep 08, 2022 11:30 AM VA-TOBACCO QUIT 15 YRS OR MORE [facility] Jul 08, 2021 09:30 AM VA-TOBACCO FORMER USER [facility] Jul 08, 2021 09:30 AM VA-TOBACCO QUIT 15 YRS OR MORE [facility] May 28, 2020 10:04 AM VA-TOBACCO NEVER USED [facility] May 29, 2018 09:51 AM VA-TOBACCO FORMER USER [facility] May 29, 2018 09:51 AM VA-TOBACCO QUIT 15 YRS OR MORE [facility] May 29, 2018 09:39 AM LIFETIME NON-TOBACCO USER [facility] May 04, 2017 02:38 PM QUIT TOBACCO USE > 7 YEARS AGO [facility] Apr 28, 2016 10:02 AM QUIT TOBACCO USE > 7 YEARS AGO smoked for 4 years about 2 pack a week quit 50 years ago [facility] Aug 20, 2013 09:48 AM QUIT TOBACCO USE > 7 YEARS AGO 22 yo [facility] Encounter Notes: All associated encounter notes This [...] empagliflozin and will fax RX to the [place]. Will ask [facility] to please obtain visit records from Dr. Aldo Westfall . Will f/u with pt on the telephone next week to discuss further. Thank you! /celina/ Ida Wong PharmD Clinical Pharmacy Practitioner Signed: 01/31/2024 14:03 Receipt Acknowledged By: 02/05/2024 11:51 /celina/ TY WU Advanced Business Analyst == --- Original Document --- 01/30/24 PHARMACY [...] of Preventive Care: Most recent visit to call centre supervisor: none; counseled Most recent visit to optometry: [...] Progress note requested /celina/ TY WU Advanced Business Analyst Signed: 01/31/2024 15:25 IDA WONG Jan 30, 2024 08:52 AM PHARMACY OUTPATIEN T NOTE: LOCAL TITLE: PHARMACY CLINIC NOTE STANDARD TITLE: PHARMACY OUTPATIENT NOTE DATE OF NOTE: JAN 30, 2024@08:52 ENTRY DATE: JAN 30, 2024@08:52:06 AUTHOR: IDA WONG COSIGNER: URGENCY: STATUS: COMPLETED PHARMACY CLINIC NOTE Has ADDENDA Known Allergies: Patient has answered NKA MATHEW NICHOLSNIS CASS presented for diabetes management treatment. Subjective: [place] referred to pharmacy PACT clinic by PCP [...] of Preventive Care: Most recent visit to call centre supervisor: none; counseled Most recent visit to optometry: [...] made (medication review completed, no discrepancies identified) /raul Wong PharmD Clinical Pharmacy Practitioner Signed: 01/30/2024 09:34 01/30/2024 ADDENDUM STATUS: COMPLETED 01/17/24: eGFR 36 Alb/Cre Ratio: 7.4 /raul Wong PharmD Clinical Pharmacy Practitioner Signed: 01/30/2024 14:22 01/31/2024 ADDENDUM STATUS: COMPLETED Pt reports taht Dr. Aldo Westfall recommends empagliflozin [facility] Will ask [facility] to please obtain visit records from Dr. Aldo Westfall [phone]. Will f/u with pt on the telephone next week to discuss further. Thank you! /raul Wong PharmD Clinical Pharmacy Practitioner Signed: 01/31/2024 14:03 Receipt Acknowledged By: 02/05/2024 11:51 /raul WU Advanced Business Analyst 01/31/2024 ADDENDUM STATUS: COMPLETED Progress note requested /raul WU Advanced Business Analyst Signed: 01/31/2024 15:25 02/05/2024 ADDENDUM STATUS: COMPLETED Pt has doctors appt in AM; requesting call in afternoon. /raul Wong PharmD Clinical Pharmacy Practitioner Signed: 02/05/2024 15:39 IDA WONG
--- OUTSIDE RECORDS SUMMARY | 2024-11-07 12:54 | XMS_ITS | Encounter Summary ---
Author Name [facility] [place] [facility] [place] Organization [facility] [place] Address [address] [place] [id number] Care Team Providers Care Manager Family Name Role Phone JUANITA BIRCH Primary Care [...] Name Patient's Relationship to Policy Bradford [facility] MEDICARE SUPPLEMEN HANS MA IND Nov 06, 2016 MEDICAR E SUPPLEM E [id number] Rao ODELL PATIENT MEDICARE (WNR) MEDICARE (M) PART A May 06, 2008 PART A [id number] [facility] [phone] Rao ODELL PATIENT MEDICARE (WNR) MEDICARE (M) PART B May 06, 2008 PART B [id number] [facility] [id number] Rao ODELL PATIENT MEDICARE (WNR) MEDICARE (M) PART A May 06, 2008 PART A [id number] Rao O[place] PATIENT MEDICARE (WNR) MEDICARE (M) PART B May 06, 2008 PART B [id number] Rao ODELL PATIENT Selected Encounter This section includes the information on record at [place] for the Encounter. Date/Time Encounter Type Encounter Description Reason Provider Source Dec 12, 2023 09:00 AM [facility] BY PHARM ADDL 15 MIN CLINICAL PHARMACY ICD-10-CM E11.65 Type 2 diabetes mellitus with hyperglycemia IDA WONG Encounter Template Text not used by [place] Assessments - Encounter Diagnoses This section includes the primary and secondary diagnoses documented for the Encounter. Date/Time Primary/Secondary Diagnosis Diagnosis Name Provider Source Dec 22, 2023 12:57 PM PRIMARY Type 2 diabetes mellitus with hyperglycemia IDA WONG Plan of Treatment: Future Appointments (+ 6 months) and Future Tests (+/- 45 days) The Plan of Treatment section includes future care activities for the patient from all [place] treatmentfacilities. This section includes future appointments and future orders which are active, pending or scheduled. Future Appointments This section includes appointments that were scheduled to occur 6 months from the date of the Encounter, up to a maximum of 20 appointments. The data comes from all [place] treatment facilities. Appointment Date/Time Appointment Type Appointme nt Facility Name Jan 30, 2024 09:00 AM [facility]ATORY [facility]ICINE [facility] Feb 07, 2024 09:30 AM AMBULATORY - MEDICINE [facility] Mar 04, 2024 09:00 AM [facility] Apr 15, 2024 09:00 [...] The data comes from all [place] treatment [facility]. Test Date/Time Test Type Test Details Facility Name Dec 08, 2023 12:00 AM Laboratory - Chemi stry Order MICROALBUMIN CREATININE RATIO PANEL URINE (RANDOM) [facility] Dec 08, 2023 12:00 AM Laboratory - Chemi stry Order URINALYSIS URINE [facility] Dec 08, 2023 12:00 AM Laboratory - Chemi stry Order CBC AND DIFF (AUTO) BLOOD (LAV-BLOOD) [facility] Dec 08, 2023 12:00 AM Laboratory - Chemi stry Order BASIC METABOLIC PANEL (fasting) BLOOD (SST-SERUM) [facility] Dec 08, 2023 12:00 AM Laboratory - Chemi stry Order HEMOGLOBIN A1C PANEL BLOOD (LAV-BLOOD) [facility] Dec 08, 2023 12:00 AM Laboratory - Chemi stry Order LIPID PANEL FASTING BLOOD (SST-SERUM) [facility] Dec 08, 2023 12:00 AM Laboratory - Chemi stry Order LIVER FUNCTION BLOOD (SST-SERUM) [facility] Dec 08, 2023 12:00 AM Laboratory - Chemi stry Order CALCIUM BLOOD (SST-SERUM) [facility] Social History: Smoking Status (Most current) and Tobacco Use (All prior to encounter date) This section includes the most current, and the historical, smoking and tobacco- related health factors from the [place] facility where the Encounter took place. Current Smoking Status This section includes the most current smoking, or tobacco-related health factor, from the [place] facility where the Encounter took place. Date/Time Current Smoking Status Comment Facil [facility] Sep 05, 2023 10:00 AM VA-TOBACCO FORMER USER [facility] Tobacco Use History This section includes a history of the smoking, or tobacco-related health factors, that were collected on or before the date of the Encounter. The data comes from the [place] facility where the Encounter took place. Date/Time Smoking Status/Tobacco Use Comment F acility Sep 05, 2023 10:00 AM VA-TOBACCO NEVER USED [place] Sep 05, 2023 10:00 AM VA-TOBACCO QUIT 15 YRS OR MORE [facility] Sep 08, 2022 11:30 AM VA-TOBACCO FORMER USER [place] Sep 08, 2022 11:30 AM VA-TOBACCO QUIT 15 YRS OR MORE [facility] Jul 08, 2021 09:30 AM VA-TOBACCO FORMER USER [place] Jul 08, 2021 09:30 AM VA-TOBACCO QUIT 15 YRS OR MORE [facility] May 28, 2020 10:04 AM VA-TOBACCO NEVER USED [place] May 29, 2018 09:51 AM VA-TOBACCO FORMER USER [place] May 29, 2018 09:51 AM VA-TOBACCO QUIT 15 YRS OR MORE [facility] May 29, 2018 09:39 AM LIFETIME NON-TOBACCO USER [place] May 04, 2017 02:38 PM QUIT TOBACCO USE > 7 YEARS AGO [facility] Apr 28, 2016 10:02 AM QUIT TOBACCO USE > 7 YEARS AGO smoked for 4 years about 2 pack a week quit 50 years ago [facility] Aug 20, 2013 09:48 AM QUIT TOBACCO USE > 7 YEARS AGO 22 yo [facility] Encounter Notes: All associated encounter notes This section contains the clinical notes associated to the Encounter. Date/Time Encounter Note(s) Provider Source Dec 12, 2023 08:54 AM PHARMACY OUTPATIEN T NOTE: LOCAL TITLE: PHARMACY CLINIC NOTE STANDARD TITLE: PHARMACY OUTPATIENT NOTE DATE OF NOTE: DEC 12, 2023@08:54 ENTRY DATE: DEC 12, 2023@08:55 AUTHOR: IDA WONG COSIGNER: URGENCY: STATUS: COMPLETED Known Allergies: Patient has answered NKA MATHEW MAVIS FRANCISNORMDelores presented for face to face initial consult for diabetes management treatment. Subjective: [place] referred to pharmacy PACT clinic by PCP [...] too impressed . No changes were recommended. GHADA-Linda for Chelsie 3 was approved and pt [...] of Preventive Care: Most recent visit to post office clerk: none; counseled Most recent visit to optometry: [...] Ida Wong PharmD Clinical Pharmacy Practitioner Signed: 12/12/2023 10:00 IDA WONG
--- OUTSIDE RECORDS SUMMARY | 2024-11-07 12:54 | XMS_ITS | Encounter Summary ---
Author Name [facility] [place] Organization [place] Address [address] [place] [address] Care Team Providers Care Administrator Name Role Phone JUANITA BIRCH Primary Care [...] Policy [place] [facility] Nov 06, 2016 MEDICAR E SUPPLEM E [id number] Rao ODELL PATIENT MEDICARE (WNR) MEDICARE (M) PART A May 06, 2008 PART A [id number] [facility] [phone] Rao ODELL PATIENT MEDICARE (WNR) MEDICARE (M) PART B May 06, 2008 PART B [id number] Rao ODELL PATIENT MEDICARE (WNR) MEDICARE (M) PART A May 06, 2008 PART A [id number] Rao ODELL PATIENT MEDICARE (WNR) MEDICARE (M) PART B May 06, 2008 PART B [id number] Rao ODELL PATIENT Selected Encounter This section includes the information on record at CT for the Encounter. Date/Time Encounter Type Encounter Description Reason Pro vider Source Jan 17, 2024 12:00 AM Outpatient Encounter EVENT (HISTORICAL) IHE Encounter Template Text not used by CT Plan of Treatment: Future Appointments (+ 6 months) and Future Tests (+/- 45 days) The Plan of Treatment section includes future care activities for the patient from all [place] treatmentfacilities. This section includes future appointments and future orders which are active, pending or scheduled. Future Appointments This section includes appointments that were scheduled to occur 6 months from the date of the Encounter, up to a maximum of 20 appointments. The data comes from all [place] treatment facilities. Appointment Date/Time Appointment Type Appointme nt Facility Name Jan 30, 2024 09:00 AM AMBULATORY - MEDICINE [facility] Feb 07, 2024 09:30 AM [facility] Mar 04, [...] of theEncounter. The data comes from all [facility]. Test Date/Time Test Type Test Details Facility Name Dec 08, 2023 12:00 AM Laboratory - Chemi stry Order MICROALBUMIN CREATININE RATIO PANEL URINE (RANDOM) [facility] Dec 08, 2023 12:00 AM Laboratory - Chemi stry Order URINALYSIS URINE [facility] Dec 08, 2023 12:00 AM Laboratory - Chemi stry Order CBC AND DIFF (AUTO) BLOOD (LAV-BLOOD) [facility] Dec 08, 2023 12:00 AM Laboratory - Chemi stry Order BASIC METABOLIC PANEL (fasting) BLOOD (SST-SERUM) [facility] Dec 08, 2023 12:00 AM Laboratory - Chemi stry Order HEMOGLOBIN A1C PANEL BLOOD (LAV-BLOOD) [facility] Dec 08, 2023 12:00 AM Laboratory - Chemi stry Order LIPID PANEL FASTING BLOOD (SST-SERUM) [facility] Dec 08, 2023 12:00 AM Laboratory - Chemi stry Order LIVER FUNCTION BLOOD ([facility]) [facility] Dec 08, 2023 12:00 AM Laboratory - Chemi stry Order CALCIUM BLOOD ([facility]) [facility]
--- OUTSIDE RECORDS SUMMARY | 2024-11-07 12:54 | XMS_ITS | Encounter Summary ---
Author Name Department of [place] Organization [facility] [place] Address [address] [place] [address] Care Team Providers Care Lead Process Engineer Name Role Phone JUANITA BIRCH Primary [...] Nov 06, 2016 MEDICAR E SUPPLEM E [id number] Rao ODELL PATIENT MEDICARE (WNR) MEDICARE () PART A May 06, 2008 PART A [id number] [facility] [phone] Rao ODELL PATIENT MEDICARE (WNR) MEDICARE (M) PART B May 06, 2008 PART B [id number] [facility] Rao ODELL PATIENT MEDICARE (WNR) MEDICARE () PART A May 06, 2008 PART A [id number] [phone] FRANCISRao MARQUES PATIENT MEDICARE (WNR) MEDICARE (M) PART B May 06, 2008 PART B [id number] [phone] Rao ODELL PATIENT Selected Encounter This section includes the information on record at [place] for the Encounter. Date/Time Encounter Type Encounter Description Reason Provider Source Nov 08, 2023 02:21 PM QNHP OL DIG ASSMT&MGMT 5-10 CLINICAL PHARMACY ICD-10-CM E11.65 Type 2 diabetes mellitus with hyperglycemia BERNICE COOK IHE Encounter Template Text not used by [place] Assessments - Encounter Diagnoses This section includes the primary and secondary diagnoses documented for the Encounter. Date/Time Primary/Secondary Diagnosis Diagnosis Name Provider Source Nov 08, 2023 02:24 PM PRIMARY Type 2 diabetes mellitus with hyperglycemia RICKY COOKSS [facility] Plan of Treatment: Future Appointments (+ 6 months) and Future Tests (+/- 45 days) The Plan of Treatment section includes future care activities for the patient from all [place] treatment[facility]ilu[facility] hospital. This section includes future appointments and future orders which are active, pending or scheduled. Future Appointments This section includes appointments that were scheduled to occur 6 months from the date of the Encounter, up to a maximum of 20 appointments. The data comes from all [place] treatment [facility]. Appointment Date/Time Appointment Type Appointme nt Facility Name Dec 12, 2023 09:00 AM AMBULATORY - MEDICINE [facility] Jan 30, 2024 09:00 AM AMBULATORY - MEDICINE [facility] Feb 07, 2024 09:30 AM AMBULATORY - MEDICINE [facility] Mar 04, 2024 09:00 AM [facility] Apr 15, 2024 09:00 AM AMBULATORY - MEDICINE [facility] Active, Pending, and Scheduled Orders This section includes a listing of several types of active, pending, and scheduled orders, including clinic medications orders, diagnostic test orders, procedure orders and consult orders; where the start date of the order is 45 days before the date of the Encounter or 45 days after the date of theEncounter. The data comes from all [place] treatment [facility]. Test Date/Time Test Type Test Details [...] stry Order CALCIUM BLOOD (SST-SERUM) [facility] Encounter Notes: All associated encounter notes This section contains the clinical notes associated to the Encounter. Date/Time Encounter Note(s) Provider Source Nov 08, 2023 02:21 PM MEDICATION MGT CON SULT: LOCAL TITLE: CONSULT REPORT/NON FORMULARY PADR STANDARD TITLE: MEDICATION MGT CONSULT DATE OF NOTE: NOV 08, 2023@14:21 ENTRY DATE: NOV 08, 2023@14:22:17 AUTHOR: DENNIS COOK EXP COSIGNER: URGENCY: STATUS: COMPLETED The medical record has been reviewed with regard to this restricted drug request. Medication requested: GLUCOSE SENSOR FREESTYLE ZITA 3 Medication indication: DM Medical history relevant to this request: Pt followed by [place] CPP for DM. Currently on insulin therapy. Per consult: Would like to consider CGM to minimize painful fingersticks. If able to d/c insulin in the future with non-insulin therapies, will d/c CGM. Last A1c 6.7% on 08/2023. The request is approved - A documented adverse reaction occurred with the preferred formulary alternative(s) /celina/ Dennis Cook PharmD Clinical Court Collections Officer Signed: 11/08/2023 14:24 DENNIS COOK CNTRL WSTRN [facility]
--- OUTSIDE RECORDS SUMMARY | 2024-11-07 12:54 | XMS_ITS | Encounter Summary ---
Author Name [place] Organization [place] Address [address] [place] [address] Care Team Providers Care Tool Machine Setup Operator Name Role Phone JUANITA BIRCH Primary [...] Policy [place] [facility] Nov 06, 2016 MEDICAR E SUPPLEM E [id number] Rao ODELL PATIENT MEDICARE (WNR) MEDICARE (M) PART A May 06, 2008 PART A [id number] [facility] Rao ODELL PATIENT MEDICARE (WNR) MEDICARE (M) PART B May 06, 2008 PART B [id number] Rao ODELL PATIENT MEDICARE (WNR) MEDICARE (M) PART A May 06, 2008 PART A [id number] Rao ODELL PATIENT MEDICARE (WNR) MEDICARE (M) PART B May 06, 2008 PART B [id number] Rao ODELL PATIENT Selected Encounter This section includes the information on record at [place] for the Encounter. Date/Time Encounter Type Encounter Description Reason Pro vider Source Jan 17, 2024 12:00 AM Outpatient Encounter EVENT (HISTORICAL) IHE Encounter Template Text not used by [place] Plan of Treatment: Future Appointments (+ 6 months) and Future Tests (+/- 45 days) The Plan of Treatment section includes future care activities for the patient from all [place] treatmentfacilities. This section includes future appointments and future orders which are active, pending or scheduled. Future Appointments This section includes appointments that were scheduled to occur 6 months from the date of the Encounter, up to a maximum of 20 appointments. The data comes from all [place] treatment facilities. Appointment Date/Time Appointment Type Appointme nt Facility Name Jan 30, 2024 09:00 AM AMBULATORY - MEDICINE [facility] Feb 07, 2024 09:30 AM AMBULATORY - MEDICINE [facility] NTR [facility] Mar 04, 2024 09:00 AM AMBULATORY - MEDICINE [facility] Apr 15, 2024 09:00 AM AMBULATORY - MEDICINE [facility] Active, Pending, and Scheduled Orders This section includes a listing of several types of active, pending, and scheduled orders, including clinic medications orders, diagnostic test orders, procedure orders and consult orders; where the start date of the order is 45 days before the date of the Encounter or 45 days after the date of theEncounter. The data comes from all [facility]. Test Date/Time Test Type Test Details Facility Name Dec 08, 2023 12:00 AM Laboratory - Chemi stry Order MICROALBUMIN CREATININE RATIO PANEL URINE (RANDOM) [facility] Dec 08, 2023 12:00 AM Laboratory - Chemi stry Order URINALYSIS URINE [facility] Dec 08, 2023 12:00 AM Laboratory - Chemi stry Order CBC AND DIFF (AUTO) BLOOD (LAV-BLOOD) [facility] Dec 08, 2023 12:00 AM Laboratory - Chemi stry Order BASIC METABOLIC PANEL (fasting) BLOOD (SST-SERUM) [facility] Dec 08, 2023 12:00 AM Laboratory - Chemi stry Order HEMOGLOBIN A1C PANEL BLOOD (LAV-BLOOD) [facility] Dec 08, 2023 12:00 AM Laboratory - Chemi stry Order LIPID PANEL FASTING BLOOD (SST-SERUM) [facility] Dec 08, 2023 12:00 AM Laboratory - Chemi stry Order LIVER FUNCTION BLOOD ([facility]) [facility] Dec 08, 2023 12:00 AM Laboratory - Chemi stry Order CALCIUM BLOOD ([facility]) [facility]
--- OUTSIDE RECORDS SUMMARY | 2024-11-07 12:54 | XMS_ITS ---
Author Name Department of [place] Organization [place] Address [address] [place] [address] Care Team Providers Care Wharf Builder Name Role Phone JUANITA BIRCH Primary [...] Nov 06, 2016 MEDICAR E SUPPLEM E [id number] Rao ODELL PATIENT MEDICARE (WNR) MEDICARE () PART A May 06, 2008 PART A [id number] [facility] [phone] Rao ODELL PATIENT MEDICARE (WNR) MEDICARE (M) PART B May 06, 2008 PART B [id number] [phone] Rao ODELL PATIENT MEDICARE (WNR) MEDICARE (M) PART A May 06, 2008 PART A [id number] Rao ODELL PATIENT MEDICARE (WNR) MEDICARE (M) PART B May 06, 2008 PART B [id number] [phone] Rao ODELL PATIENT Selected Encounter This section includes the information on record at [place] for the Encounter. Date/Time Encounter Type Encounter Description Reason Provider Source Dec 13, 2023 02:16 PM Outpatient Encounter TELEPHONE TRIAGE WALDEMAR MCCALLUM Encounter Template Text not used by [place] [...] The data comes from all [place] treatment [facility]. Appointment Date/Time Appointment Type Appointme nt Facility Name Jan 30, 2024 09:00 AM AMBULATORY - MEDICINE [facility] Feb 07, 2024 09:30 AM AMBULATORY - MEDICINE [facility] NTR W[facility] Mar 04, [...] of theEncounter. The data comes from all [facility]. Test Date/Time Test Type Test Details [...] daily of insulin glargine yesterday; however, informs justowriter operator at call that he did that once but changed it back to 28 units. RX updated. Thank you! /celina/ Ida Wong PharmD Clinical Pharmacy Practitioner Signed: 12/13/2023 15:05 Receipt Acknowledged By: 12/13/2023 15:16 /es/ Amira Sheldon RN Registered Nurse (RN) --- Original Document --- 12/13/23 CCC: CLINICAL TRIAGE: Patient Demographics Patient Name: MATHEW ODELL Patient Primary Address: [address] [place] [address] Patient Primary Phone: [phone] Patient : 1945 Patient Age: 78 Call Back Number: [phone] Caller/Recipient Relation to Patient: Self Emergency Contact: NANETTE ACSS Medication Refill/Renewal Request Medications Refill/Renewal Request: calls and states he has 6 days left of Insulin Glargine. States he has been using 28units at (current order is for 25units). states civilian PCP Dr Aldo Westfall at [facility] increased the dose recently. REQUESTING: NEW ORDER GLARGINE W/ UPDATED DOSE ''28 units'' AND CALL BACK TO UPDATE DR.ANDREW CAIN [address] [place] [address] [place] [id number] Rx #[id number] - INSULIN,GLARGINE-YFGN 100UNIT/ML PEN 3ML INJECT 25 UNITS SUBCUTANEOUSLY EVERY EVENING - SAME LANTUS Nursing Plan and Disposition Other course(s) of action Generated msg to PACT/Provider Clinical Contact Center Codes Clinic/Location: V1 [facility] PHONE [facility] RN /celina/ WALDEMAR MCCALLUM Signed: 12/13/2023 14:16 Receipt Acknowledged By: 12/13/2023 15:16 /celina/ Amira Sheldon RN Registered Nurse (RN) * AWAITING SIGNATURE * JEREMIAH RENDON 12/13/2023 ADDENDUM STATUS: COMPLETED Eva seen clinical pharmacist yesterday. Did mention this to you yesterday at his visit? Please advise. /celina/ Amira Sheldon RN Registered Nurse (RN) Signed: 12/13/2023 14:55 Receipt Acknowledged By: 12/13/2023 15:04 /celina/ Ida Wong PharmD Clinical Pharmacy Practitioner IDA WONG [place] CNTRL [facility] Dec 13, 2023 02:54 PM ADDENDUM: LOCAL TITLE: Addendum STANDARD TITLE: ADDENDUM DATE OF NOTE: DEC 13, 2023@14:54:31 ENTRY DATE: DEC 13, 2023@14:54:33 AUTHOR: AMIRA SHELDON EXP COSIGNER: URGENCY: STATUS: COMPLETED Eva seen clinical pharmacist yesterday. Did mention this to you yesterday at his visit? Please advise. /raul Sheldon RN Registered Nurse (RN) Signed: 12/13/2023 14:55 Receipt Acknowledged By: 12/13/2023 15:04 /raul Wong PharmD Clinical Pharmacy Practitioner --- Original Document --- 12/13/23 CCC: CLINICAL TRIAGE: Patient Demographics Patient Name: MATHEW ODELL Patient Primary Address: [address] [place], [place] [id number] Patient Primary Phone: [phone] Patient : 1945 Patient Age: 78 Call Back Number: [phone] Caller/Recipient Relation to Patient: Self Emergency Contact: NANETTE ODELL Medication Refill/Renewal Request Medications Refill/Renewal Request: Eva calls and states he has 6 days left of Insulin Glargine. States he has been using 28units at (current order is for 25units). [facility] civilian PCP Dr Aldo Westfall at [facility] increased the dose recently. REQUESTING: NEW ORDER GLARGINE W/ UPDATED DOSE ''28 units'' AND CALL BACK TO UPDATE DR.ANDREW CAIN [address] [place] [address] [place], [place] [id number] Rx #[id number] - INSULIN,GLARGINE-YFGN 100UNIT/ML PEN 3ML INJECT 25 UNITS SUBCUTANEOUSLY EVERY EVENING - SAME [place] Nursing Plan and Disposition Other course(s) of action Generated msg to PACT/Provider Clinical Contact Center Codes Clinic/Location: [facility] PHONE [facility] RN /celina/ WALDEMAR MCCALLUM Signed: 12/13/2023 14:16 Receipt Acknowledged By: * AWAITING SIGNATURE * AMIRA SHELDON * AWAITING SIGNATURE * JEREMIAH RENDON [place] N [place] CNTRL [facility]N [facility] Dec 13, 2023 02:16 PM RN PROGRESS NOTE: LOCAL TITLE: CCC: CLINICAL TRIAGE STANDARD TITLE: RN PROGRESS NOTE DATE OF NOTE: DEC 13, 2023@14:16:25 ENTRY DATE: DEC 13, 2023@14:16:25 AUTHOR: WALDEMAR MCCALLUM EXP COSIGNER: URGENCY: STATUS: COMPLETED CCC: CLINICAL TRIAGE Has ADDENDA Patient Demographics Patient Name: MATHEW ODELL Patient Primary Address: [address] [place] [address] Ha Patient Primary Phone: [phone] Patient : 1945 Patient Age: 78 Call Back Number: [phone] Caller/Recipient Relation to Patient: Self Emergency Contact: NANETTE ODELL Medication Refill/Renewal Request Medications Refill/Renewal Request: calls and states he has 6 days left of Insulin Glargine. States he has been using 28units at (current order is for 25units). Eva [facility] civilian PCP Dr Aldo Westfall at [facility] increased the dose recently. REQUESTING: NEW ORDER GLARGINE W/ UPDATED DOSE ''28 units'' AND CALL BACK TO UPDATE DR.ANDREW CAIN [address] [place] [address] [place], [place] [id number] Rx #[id number] - INSULIN,GLARGINE-YFGN 100UNIT/ML PEN 3ML INJECT 25 UNITS SUBCUTANEOUSLY EVERY EVENING - SAME [place] Nursing Plan and Disposition Other course(s) of action Generated msg to PACT/Provider Clinical Contact Center Codes Clinic/Location: [facility] PHONE [facility] RN /celina/ WALDEMAR MCCALLUM Signed: 12/13/2023 14:16 Receipt Acknowledged By: 12/13/2023 15:16 /celina/ Amira Sheldon RN Registered Nurse (RN) 12/14/2023 08:28 /celina/ JEREMIAH RENDON LPN LICENSED PRACTICAL NURSE 12/13/2023 ADDENDUM STATUS: COMPLETED seen clinical pharmacist [...] daily of insulin glargine yesterday; however, informs justowriter operator at call that he did that once but changed it back to 28 units. RX updated. Thank you! /celina/ Ida Wong PharmD Clinical Pharmacy Practitioner Signed: 12/13/2023 15:05 Receipt Acknowledged By: 12/13/2023 15:16 /es/ Amira Sheldon, [place] Registered Nurse (RN) WALDEMAR MCCALLUML [facility]
--- OUTSIDE RECORDS SUMMARY | 2024-11-07 12:54 | XMS_ITS ---
Author Name [facility] [place] Address [address] [place] [address] Care Team Providers Care Compressor Battery Pellets Name Role Phone JUANITA BIRCH Primary Care [...] Nov 06, 2016 MEDICAR E SUPPLEM E [id number] Rao ODELL PATIENT MEDICARE (WNR) MEDICARE (M) PART B May 06, 2008 PART B [id number] [facility] [phone] Rao ODELL PATIENT MEDICARE (WNR) MEDICARE (M) PART A May 06, 2008 PART A [id number] Rao ODELL PATIENT MEDICARE (WNR) MEDICARE (M) PART A May 06, 2008 PART A [id number] Rao ODELL PATIENT MEDICARE (WNR) MEDICARE (M) PART B May 06, 2008 PART B [id number] [phone] LAFFERRao Estrella PATIENT Selected Encounter This section includes the information on record at [place] for the Encounter. Date/Time Encounter Type Encounter Description Reason Pro vider Source Jan 31, 2024 02:16 PM Outpatient Encounter ADMIN PAT ACTIVTIES (MASNONCT) IHE Encounter Template Text not used by [place] Plan of Treatment: Future Appointments (+ 6 months) and Future Tests (+/- 45 days) The Plan of Treatment section includes future care activities for the patient from all [place] treatmentfacilities. This section includes future appointments and future orders which are active, pending or scheduled. Future Appointments This section includes appointments that were scheduled to occur 6 months from the date of the Encounter, up to a maximum of 20 appointments. The data comes from all [facility]. Appointment Date/Time Appointment Type Appointme nt Facility Name Feb 07, 2024 09:30 AM AM[facility]ULATORY [facility]INE [facility] Mar 04, 2024 09:00 AM AMBULATORY - MEDICINE [facility] Apr 15, 2024 09:00 AM [facility] - [facility]IC[facility] Active, Pending, and Scheduled Orders This section includes a listing of several types of active, pending, and scheduled orders, including clinic medications orders, diagnostic test orders, procedure orders and consult orders; where the start date of the order is 45 days before the date of the Encounter or 45 days after the date of theEncounter. The data comes from all [facility]. Test Date/Time Test Type Test Details Facility Name Mar 04, 2024 12:00 AM Laboratory - Chemistry Order HEMOGLOBIN A1C PANEL BLOOD (LAV-BLOOD) [facility] Mar 04, 2024 12:00 AM Laboratory - Chemistry Order CREATININE (eGFR 2020) BLOOD (SST-SERUM) [facility] Encounter Notes: All associated encounter notes [...] Patient Name: MATHEW ODELL Patient Primary Phone: [phone] Patient Primary [address]: [address] [place] [address] Patient : 1945 Patient Age: 78 Call Back Number: [phone] Caller/Recipient Relation to Patient: Self Administrative Administrative Note Reason: Other Administrative Note Comments: is calling and would like to speak with his PACT as well as his Clinical Pharmacist regarding his diabetes monitoring equipment and medication. Please review and return call to . Thank you. /celina/ DENNIS MARTE 1 [facility] Signed: 01/31/2024 14:16 Receipt Acknowledged By: 01/31/2024 15:29 /celina/ Ophelia Sheldon, [place] Registered Nurse (RN) 01/31/2024 14:31 /celina/ Elvia Wong PharmD Clinical Pharmacy Practitioner 01/31/2024 ADDENDUM STATUS: COMPLETED Spoke with patient (see add'm to note 01/30/24). /celina/ Elvia Wong PharmD Clinical Pharmacy Practitioner Signed: 01/31/2024 14:32 DENNIS DUFFY [place] [facility]
--- OUTSIDE RECORDS SUMMARY | 2024-11-07 12:55 | XMS_ITS | Encounter Summary ---
Author Name [facility] [place] Organization [facility] [place] Address [address] [place] [address] Care Team Providers Care [employer] Membership Sales Agent Name Role Phone JUANITA BIRCH Primary [...] Bradford's Name Patient's Relationship to Policy Bradford [facility] MEDICARE SUPPLEMEN HANS [place] IND Nov 06, 2016 MEDICAR E SUPPLEM E [id number] Rao ODELL PATIENT MEDICARE (WNR) MEDICARE (M) PART A May 06, 2008 PART [id number] [facility] Rao ODELL PATIENT MEDICARE (WNR) MEDICARE (M) PART B May 06, 2008 PART [id number] [facility] [id number] Rao ODELL PATIENT MEDICARE (WNR) MEDICARE (M) PART A May 06, 2008 PART A [id number] Rao ODELL PATIENT MEDICARE (WNR) MEDICARE (M) PART B May 06, 2008 PART B [id number] Rao ODELL PATIENT Selected Encounter This section includes the information on record at [place] for the Encounter. Date/Time Encounter Type Encounter Description Reason Provider Source Sep 03, 2024 10:00 AM OFFICE O/P EST MOD 30 MIN PRIMARY CARE/MEDICINE ICD-10-CM I73.9 Peripheral vascular disease, unspecified JUANITA BIRCH Darrel Encounter Template Text not used by [place] Assessments - Encounter Diagnoses This section includes the primary and secondary diagnoses documented for the Encounter. Date/Time Primary/Secondary Diagnosis Diagnosis Name Provider Source Sep 17, 2024 12:52 PM PRIMARY Peripheral vascular disease, unspecified JUANITA BIRCH [facility] Sep 17, 2024 12:52 PM SECONDARY Athscl heart disease of [place] coronary artery w/o ang pctrs BIRCHJUANITA MADERA [facility] Sep 17, 2024 12:52 PM SECONDARY Chronic kidney disease, stage 3 unspecified JUANITA BIRCH [facility] Sep 17, 2024 12:52 PM SECONDARY Type 2 diabetes mellitus with hyperglycemia JUANITA BIRCHFIELD Plan of Treatment: Future Appointments (+ 6 months) and Future Tests (+/- 45 days) The Plan of Treatment section includes future care activities for the patient from all [place] [facility]. This section includes future appointments and [...] 08, 2024 03:30 PM AMBULATORY - MEDICINE [facility] [place] [facility] Oct 25, 2024 08:30 AM AMBULATORY - MEDICINE [facility] Nov 12, 2024 08:30 AM AM[facility]ULAT[facility] Lab Results: +/- 30 days of the encounter This section includes the Chemistry and Hematology Lab Results on record with [place] for the patient. Radiology Reports and Pathology Reports are provided separately, in subsequent sections. Lab Results This section contains the Chemistry/Hematology Results that were resulted 30 days before or 30 daysafter the date of the Encounter. Date/Time Source Result Type Result - Unit Interpretation Reference Range Comment Sep 02, 2024 09:36 AM [facility] LIPID PANEL FASTING Specimen Type: SERUM No comment entered. Ordering Provider: JUANITA BIRCH Report Released Date/Time: Aug 20, 2024 02:24 PM Reporting Lab: [facility] [address] [address] Performing Lab: [facility] [address] [facility] [address] CHOLESTEROL 167 mg/dL TRIGLYCERIDE 102 mg/dL 0-150 LDL calculated 76 mg/dL 0-129 CHOL/HDL 2.4 HDL CHOLESTEROL 71 mg/dL H 40-60 Sep 02, 2024 09:36 AM [facility] LIVER FUNCTION Specimen Type: SERUM No comment entered. Ordering Provider: JUANITA BIRCH Report Released Date/Time: Aug 20, 2024 02:24 PM Reporting Lab: [facility] [address] [address] Performing Lab: [address] [address] PROTEIN,TOTAL 6.9 g/dL 6.0-8.3 ALBUMIN 3.6 g/dL 3.5-5.0 ALKALINE PHOSPHATASE 70 U/L 40-150 AST 21 U/L 5-34 ALT 29 U/L BILIRUBIN, TOTAL 0.6 mg/dL 0.2-1.2 Sep 02, 2024 09:36 AM [facility] URIC ACID Specimen Type: SERUM No comment entered. Ordering Provider: JUANITA BIRCH Report Released Date/Time: Aug 20, 2024 02:24 PM Reporting Lab: [address] [address] Performing Lab: [address] [address] URIC ACID 7.9 mg/dL H 3.5-7.2 Sep 02, 2024 09:36 AM [facility] CALCIUM Specimen Type: SERUM No comment entered. Ordering Provider: JUANITA BIRCH Report Released Date/Time: Aug 20, 2024 02:24 PM Reporting Lab: [address] [address] Performing Lab: [address] [address] CALCIUM 9.1 mg/dL 8.5-10.2 Sep 02, 2024 09:36 AM [facility] VITAMIN D (25-OH) Specimen Type: SERUM No comment entered. Ordering Provider: JUANITA BIRCH Report Released Date/Time: Aug 20, 2024 02:24 PM Reporting Lab: [address] [address] Performing Lab: [address] [address] VITAMIN D (25-OH) 45 ng/mL 20-50 Sep 02, 2024 09:36 AM [facility] FERRITIN Specimen Type: SERUM No comment entered. Ordering Provider: JUANITA BIRCH Report Released Date/Time: Aug 20, 2024 02:24 PM Reporting Lab: [address] [address] Performing Lab: [address] [address] FERRITIN 302 ng/mL H 20-300 Sep 02, 2024 09:36 AM [facility] HEMOGLOBIN A1C PANEL Specimen Type: BLOOD Comment: [...] Aug 20, 2024 02:24 PM Reporting Lab: [address] [address] Performing Lab: [address] [address] HEMOGLOBIN A1C 7.1 H 4.0-5.6 Sep 02, 2024 09:36 AM [facility] CBC AND DIFF (AUTO) Specimen Type: BLOOD No comment entered. Ordering Provider: JUANITA BIRCH Report Released Date/Time: Aug 20, 2024 02:24 PM Reporting [facility] [address] [address] Performing Lab: [address] [address] WBC 5.39 10*3/uL 4.50-11.00 RBC 4.07 10*6/uL [...] 10*3/uL 0.00-0.00 Sep 02, 2024 09:36 AM [facility] TSH Specimen Type: SERUM No comment entered. Ordering Provider: JUANITA BIRCH Report Released Date/Time: Aug 20, 2024 02:24 PM Reporting [facility] [address] [address] [facility] [address] [facility] [facility] [address] TSH 4.66 u[IU]/mL 0.35-5.00 Sep 02, 2024 09:36 AM [facility] MICROALBUMIN CREATININE RATIO PANEL Spe cimen Type: URINE No comment entered. Ordering Provider: JUANITA BIRCH Report Released Date/Time: Aug 20, 2024 02:24 PM Reporting [facility] [address] [address] Performing Lab: [facility] [address] [address] MICROALBUMIN/C REATININE RATIO 9.9 mg/g 0-29.9 MICROALBUMIN,Q UANTITATIVE 0.8 mg/dL RR UNAVAIL CREATININE URINE 80.78 mg/dL Sep 02, 2024 09:36 AM [facility] URINALYSIS Specimen Type: URINE Comment: If Glucose = >500 and Ketones are positive, please alert the Physician. Ordering Provider: JUANITA BIRCH Report Released Date/Time: Aug 20, 2024 02:24 PM Reporting Lab: [address] [address] Performing Lab: [address] [address] UA COLOR Light-Yellow Yellow UA APPEARANCE Clear Clear UA GLUCOSE Normal mg/dL Negative UA KETONES NEGATIVE mg/dL Negative UA BLOOD NEGATIVE mg/dL Negative UA PROTEIN NEGATIVE mg/dL Negative UA NITRITE NEGATIVE mg/dL Negative UA BILIRUBIN NEGATIVE mg/dL Negative UA SPECIFIC GRAVITY 1.017 1.016-1.022 UA pH 6.0 5.0-9.0 UA UROBILINOGEN Normal mg/dL <2.0 UA LEUKOCYTE TRACE Negative Sep 02, 2024 09:36 AM [facility] MICROSCOPIC AUTOMATED, URINE Specimen T ype: URINE Comment: If Glucose = >500 and Ketones are positive, please alert the Physician. Ordering Provider: JUANITA BIRCH Report Released Date/Time: Aug 20, 2024 02:24 PM Reporting Lab: [address] [address] Performing Lab: [address] [address] UA WBC 0-5 /[HPF] 0-5 UA MUCUS FEW /[LPF] Trace UA HYALINE CASTS 2-4 /[LPF] 0-2 UA SQUAMOUS EPITH FEW /[HPF] Sep 02, 2024 09:36 AM [facility] BASIC METABOLIC PANEL (fasting) Specime n Type: SERUM No comment entered. Ordering Provider: JUANITA BIRCH Report Released Date/Time: Aug 20, 2024 02:24 PM Reporting Lab: [address] [place] [address] Performing Lab: [place] [facility] [address] [address] UREA NITROGEN 45 mg/dL H 7-25 GLUCOSE 186 mg/dL H 65-100 SODIUM 142 mmol/L 135-145 POTASSIUM 4.1 mmol/L 3.5-5.0 CHLORIDE 103 mmol/L 100-110 CO2 26 meq/L 20-30 CREATININE, Serum 2.10 mg/dL H 0.50-1.40 eGFR(CKD-EPI 2020) 31 mL/min L >60 Vital Signs: All taken on the encounter date This section contains inpatient and outpatient Vital Signs collected on the date of the Encounter. Date/Time Temperature Pulse Blood Pressure Respiratory Rate SP02 Pain Height Weight Body Mass Index Source Sep 03, 2024 10:28 AM 97.6 79 126/76 18 98 236 34 [facility] Social History: Smoking Status (Most current) [...] place. Date/Time Current Smoking Status Comment Buddy itnoe Sep 03, 2024 10:00 AM VA-TOBACCO FORMER USER [facility] Tobacco Use History This section includes a history of the smoking, or tobacco-related health factors, that were collected on or before the date of the Encounter. The data comes from the [place] facility where the Encounter took place. Date/Time Smoking Status/Tobacco Use Comment F acility Sep 03, 2024 10:00 AM VA-TOBACCO QUIT 15 YRS OR MORE [facility] Sep 05, 2023 10:00 AM VA-TOBACCO FORMER USER [facility] Sep 05, 2023 10:00 AM VA-TOBACCO NEVER USED [facility] Sep 05, 2023 10:00 AM VA-TOBACCO QUIT 15 YRS OR MORE [facility] Sep 08, 2022 11:30 AM VA-TOBACCO FORMER USER [facility] Sep 08, 2022 11:30 AM VA-TOBACCO QUIT 15 YRS OR MORE [facility] Jul 08, 2021 09:30 AM VA-TOBACCO FORMER USER [facility] Jul 08, 2021 09:30 AM VA-TOBACCO QUIT 15 YRS OR MORE [facility] May 28, 2020 10:04 AM VA-TOBACCO NEVER USED [facility] May 29, 2018 09:51 AM VA-TOBACCO FORMER USER [facility] May 29, 2018 09:51 AM VA-TOBACCO QUIT 15 YRS OR MORE [facility] May 29, 2018 09:39 AM LIFETIME NON-TOBACCO USER [facility] May 04, 2017 02:38 PM QUIT TOBACCO USE > 7 YEARS AGO [facility] Apr 28, 2016 10:02 AM QUIT TOBACCO USE > 7 YEARS AGO smoked for 4 years about 2 pack a week quit 50 years ago [facility] Aug 20, 2013 09:48 AM QUIT TOBACCO USE > 7 YEARS AGO 22 yo [facility] Encounter Notes: All associated encounter notes This section contains the clinical notes associated to the Encounter. Date/Time Encounter Note(s) Provider Source Sep 03, 2024 10:23 AM PHYSICIAN JERRY Estrella NOTE: LOCAL TITLE: GHADA NOTE STANDARD TITLE: PHYSICIAN DIETETICS DIRECTOR NOTE DATE OF NOTE: SEP 03, 2024@10:23 ENTRY DATE: SEP 03, 2024@10:23:14 AUTHOR: JUANITA BIRCH EXP COSIGNER: URGENCY: STATUS: COMPLETED S - routine [...] 10) Stress? - nothing untoward RTC AUG 30 - labs before Suicide Screen: C-SSRS Screening [place]-Suicide Severity Rating Scale (C-SSRS Screener) 1. Over [...] Not worried about housing near future [facility] reports the following: Within the past 12 [...] decreased SENSORY CHECK: Includes 10 gram Monofilament (Cedar-Halley) test of sensation. Intact (Greater than or [...] a detailed handout on diabetic foot care. /es/ JUANITA BIRCH PA-C STAFF PHYSICIAN DIETETICS DIRECTOR Signed: 09/03/2024 10:53 JUANITA BIRCH
--- OUTSIDE RECORDS SUMMARY | 2024-11-07 12:55 | XMS_ITS | Encounter Summary ---
Author Name [place] Address [address] [place] [address] Care Team Providers Care Leasing Sales Consultant Name Role Phone JUANITA BIRCH Primary Care [...] Policy Bradford [facility] Nov [facility], 2016 MEDICAR E SUPPLEM E [id number] [phone] Rao ODELL PATIENT MEDICARE (WNR) MEDICARE (M) PART A May 06, 2008 PART A [id number] [facility] Rao ODELL PATIENT MEDICARE (WNR) MEDICARE (M) PART B May 06, 2008 PART B [id number] Rao ODELL PATIENT MEDICARE (WNR) MEDICARE (M) PART A May 06, 2008 PART A [id number] Rao ODELL PATIENT MEDICARE (WNR) MEDICARE (M) PART B May 06, 2008 PART B [id number] [phone] Rao ODELL PATIENT Selected Encounter This [...] 07, 2024 09:30 AM AMBULATORY - MEDICINE [facility] NTR [facility] Mar 04, 2024 09:00 AM AMBULATORY [...] of theEncounter. The data comes from all [facility]. Test Date/Time Test Type Test Details Facility Name Dec 08, 2023 12:00 AM Laboratory - Chemi stry Order MICROALBUMIN CREATININE RATIO PANEL URINE (RANDOM) [facility] Dec 08, 2023 12:00 AM Laboratory - Chemi stry Order URINALYSIS URINE [facility] Dec 08, 2023 12:00 AM Laboratory - Chemi stry Order CBC AND DIFF (AUTO) BLOOD (LAV-BLOOD) [facility] Dec 08, 2023 12:00 AM Laboratory - Chemi stry Order BASIC METABOLIC PANEL (fasting) BLOOD (SST-SERUM) [facility] Dec 08, 2023 12:00 AM Laboratory - Chemi stry Order HEMOGLOBIN A1C PANEL BLOOD (LAV-BLOOD) [facility] Dec 08, 2023 12:00 AM Laboratory - Chemi stry Order LIPID PANEL FASTING BLOOD (SST-SERUM) [facility] Dec 08, 2023 12:00 AM Laboratory - Chemi stry Order LIVER FUNCTION BLOOD (SST-SERUM) [facility] Dec 08, 2023 12:00 AM Laboratory - Chemi stry Order CALCIUM BLOOD (SST-SERUM) [facility] Encounter Notes: All associated encounter notes This section contains the clinical notes associated to the Encounter. Date/Time Encounter Note(s) Provider Source Jan 17, 2024 12:00 AM NONVA NOTE: LOCAL TITLE: NON-VA OUTPATIENT NOTES STANDARD TITLE: NONVA NOTE DATE OF NOTE: JAN 17, 2024 ENTRY DATE: FEB 13, 2024@14:25:42 AUTHOR: KAETLYN CARDOZO EXP COSIGNER: URGENCY: STATUS: COMPLETED VistA Imaging - Scanned Document SCANNED DOCUMENT SIGNATURE NOT REQUIRED Electronically Filed: 02/13/2024 by: KATELYN CAMILO CNTRL W[facility]
--- OUTSIDE RECORDS SUMMARY | 2024-11-07 12:55 | XMS_ITS ---
Author Name [facility] Organization [facility] Address [address] [place] [address] Care Team Providers Care Furnace Repairer Helper Name Role Phone JUANITA BIRCH Primary Care [...] Nov 06, 2016 MEDICAR E SUPPLEM E [id number] Rao ODELL PATIENT MEDICARE (WNR) MEDICARE (M) PART B May 06, 2008 PART B [id number] [facility] Rao ODELL PATIENT MEDICARE (WNR) MEDICARE (M) PART A May 06, 2008 PART A [id number] Rao ODELL PATIENT MEDICARE (WNR) MEDICARE (M) PART A May 06, 2008 PART A [id number] Rao ODELL PATIENT MEDICARE (WNR) MEDICARE (M) PART B May 06, 2008 PART B [id number] LAFFERRao Estrella PATIENT Selected Encounter This section includes the information on record at [place] for the Encounter. Date/Time Encounter Type Encounter Description Reason Pro vider Source April 04, 2024 01:28 PM Outpatient Encounter ADMIN PAT ACTIVTIES (HENRRY) IHE Encounter Template Text not used by [place] Plan of Treatment: Future Appointments (+ 6 months) and Future Tests (+/- 45 days) The Plan of Treatment section includes future care activities for the patient from all [place] treatmentfacilities. This section includes future appointments and future orders which are active, pending or scheduled. Future Appointments This section includes appointments that were scheduled to occur 6 months from the date of the Encounter, up to a maximum of 20 appointments. The data comes from all [place] treatment facilities. Appointment Date/Time Appointment Type Appointme nt Facility Name Apr 15, 2024 09:00 AM AMBULATORY - MEDICINE [facility] Sep 03, 2024 10:00 AM [facility]ATORY - MEDICINE [facility] Active, Pending, and Scheduled Orders This section includes a listing of several types of active, pending, and scheduled orders, including clinic medications orders, diagnostic test orders, procedure orders and consult orders; where the start date of the order is 45 days before the date of the Encounter or 45 days after the date of theEncounter. The data comes from all [place] treatment facilities. Test Date/Time Test Type Test Details Facility Name Mar 04, 2024 12:00 AM Laboratory - Chemistry Order HEMOGLOBIN A1C PANEL BLOOD (LAV-BLOOD) [facility] Mar 04, 2024 12:00 AM Laboratory - Chemistry Order CREATININE (eGFR 2020) BLOOD (SST-SERUM) [facility] Encounter Notes: All associated encounter notes This section contains the clinical notes associated to the Encounter. Date/Time Encounter Note(s) Provider Source April 04, 2024 01:28 PM PHARMACY NOTE: LOCAL TITLE: V1 PHARMACY CUSTOMER CARE MEDICATION RENEWAL STANDARD TITLE: PHARMACY NOTE DATE OF NOTE: APRIL 04, 2024@13:28 ENTRY DATE: APRIL 04, 2024@13:28:20 AUTHOR: NATALIIA PEREIRA COSIGNER: URGENCY: STATUS: COMPLETED Date: March Division: [facility] referred by Pharmacy Call Center for medication renewal: Non-controlled/maintena nce medication Medications requested: [id number] NEEDLE,PEN 31G,8MM Defer to primary care provider To be mailed . Please review and renew if appropriate. *This note was generated by [facility]/[place] Pharmacy Customer Care. If you have any questions or need assistance, do not contact this author. Please refer all questions to your local, on-site pharmacy departments. /celina/ NATALIIA PEREIRA CPhT Leadite Worker, MS/Pharmacy Customer Care Signed: 04/04/2024 13:28 Receipt Acknowledged By: 04/04/2024 14:16 /celina/ Ophelia Sheldon RN Registered Nurse (RN) 04/04/2024 13:30 /celina/ JUANITA BIRCH PA-C STAFF PHYSICIAN UNEMPLOYMENT CLAIMS ADJUDICATOR NATALIIA PEREIRA ID [id number]
--- OUTSIDE RECORDS SUMMARY | 2024-11-07 12:55 | XMS_ITS ---
Author Name [facility] [place] Organization [place] Address [address] [place] [address] Care Team Providers Care Extract Mixer Name Role Phone JUANITA BIRCH Primary Care [...] Policy Bradford [facility] [place] IND Nov 06, 2016 MEDICAR E SUPPLEM E [id number] Rao ODELL PATIENT MEDICARE (WNR) MEDICARE (M) PART A May 06, 2008 PART A [id number] [facility] Rao ODELL PATIENT MEDICARE (WNR) MEDICARE (M) PART B May 06, 2008 PART B [id number] Rao ODELL PATIENT MEDICARE (WNR) MEDICARE (M) PART A May 06, 2008 PART A [id number] [id number] [phone] Rao ODELL PATIENT MEDICARE (WNR) MEDICARE (M) PART B May 06, 2008 PART B [id number] CASSRao ICHAEL PATIENT Selected Encounter This section includes the information on record at [place] for the Encounter. Date/Time Encounter Type Encounter Description Reason Provider Source Dec 11, 2023 10:34 AM Outpatient Encounter PROSTHETICS/ORTHOTIC JUANITA ORLANDO Encounter Template Text not used by [place] Plan of Treatment: Future Appointments (+ 6 months) and Future Tests (+/- 45 days) The Plan of Treatment section includes future care activities for the patient from all [place] treatmentfacilities. This section includes future appointments and future orders which are active, pending or scheduled. Future Appointments This section includes appointments that were scheduled to occur 6 months from the date of the Encounter, up to a maximum of 20 appointments. The data comes from all [place] treatment facilities. Appointment Date/Time Appointment Type Appointme nt Facility Name Dec 12, 2023 09:00 AM AMBULATORY - MEDICINE [facility] Jan 30, 2024 09:00 AM AMBULATORY - MEDICINE [facility] Feb 07, 2024 09:30 AM AMBULATORY - MEDICINE [facility] NTR [facility] Mar 04, 2024 09:00 AM AMBULATORY [...] of theEncounter. The data comes from all [facility]. Test Date/Time Test Type Test Details Facility Name Dec 08, 2023 12:00 AM Laboratory - Chemi stry Order URINALYSIS URINE [facility] Dec 08, 2023 12:00 AM Laboratory - Chemi stry Order MICROALBUMIN CREATININE RATIO PANEL URINE (RANDOM) [facility] Dec 08, 2023 12:00 AM Laboratory - Chemi stry Order CBC AND DIFF (AUTO) BLOOD (LAV-BLOOD) [facility] Dec 08, 2023 12:00 AM Laboratory - Chemi stry Order HEMOGLOBIN A1C PANEL BLOOD (LAV-BLOOD) [facility] Dec 08, 2023 12:00 AM Laboratory - Chemi stry Order BASIC METABOLIC PANEL (fasting) BLOOD (SST-SERUM) [facility] Dec 08, 2023 12:00 AM Laboratory - Chemi stry Order LIPID PANEL FASTING BLOOD (SST-SERUM) [facility] Dec 08, 2023 12:00 AM Laboratory - Chemi awilda Order LIVER FUNCTION BLOOD ([facility]) [facility] Dec 08, 2023 12:00 AM Laboratory - Chemi awilda Order CALCIUM BLOOD ([facility]-S[facility]) [facility]
--- OUTSIDE RECORDS SUMMARY | 2024-11-07 12:55 | XMS_ITS | Encounter Summary ---
Author Name Department of Vetera Affairs ([place]) Organization Department of [place] Address [address] [place] [id number] Care Team Providers Care Community Health Outreach Worker Name Role Phone JUANITA BIRCH Primary Care [...] Bradford's Name Patient's Relationship to Policy Bradford [facility] MEDICARE SUPPLEMEN HANS [place] IND Nov 06, 2016 MEDICAR E SUPPLEM E [id number] Rao ODELL PATIENT MEDICARE (WNR) MEDICARE (M) PART A May 06, 2008 PART A [id number] [facility] Rao ODELL PATIENT MEDICARE (WNR) MEDICARE (M) PART B May 06, 2008 PART B [id number] [facility] [id number] Rao ODELL PATIENT MEDICARE (WNR) MEDICARE (M) PART A May 06, 2008 PART A [id number] [phone] Rao ODELL PATIENT MEDICARE (WNR) MEDICARE (M) PART B May 06, 2008 PART B [id number] [phone] Rao ODELL PATIENT Selected Encounter This section includes the information on record at [place] for the Encounter. Date/Time Encounter Type Encounter Description Reason Provider Source Feb 07, 2024 09:30 AM MTMS BY PHARM INFRASTRUCTURE DEVELOPER 15 MIN TELEPHONE PRIMARY CARE ICD-10-CM E11.65 Type 2 diabetes mellitus with hyperglycemia ELVIA WONG [place] Encounter Template Text not used by [place] Assessments - Encounter Diagnoses This section includes the primary and secondary diagnoses documented for the Encounter. Date/Time Primary/Secondary Diagnosis Diagnosis Name Provider Source Feb 07, 2024 09:30 AM PRIMARY Type 2 diabetes mellitus with hyperglycemia ELVIA WONG [place] Plan of Treatment: Future Appointments (+ 6 months) and Future Tests (+/- 45 days) The Plan of Treatment section includes future care activities for the patient from all [facility] This section includes future appointments [...] 2024 09:00 AM [facility] Apr 15, 2024 09:00 AM [facility] Active, Pending, and Scheduled Orders [...] Chemistry Order HEMOGLOBIN A1C PANEL BLOOD (LAV-BLOOD) [facility] Mar 04, 2024 12:00 AM Laboratory - Chemistry Order CREATININE (eGFR 2020) BLOOD (SST-SERUM) [facility] Social History: Smoking Status (Most current) and Tobacco Use (All prior to encounter date) This section includes the most current, and the historical, smoking and tobacco- related health factors from the [place] facility where the Encounter took place. Current Smoking Status This section includes the most current smoking, or tobacco-related health factor, from the [place] facility where the Encounter took place. Date/Time Current Smoking Status Comment Facil ity Sep 05, 2023 10:00 AM VA-TOBACCO FORMER USER [place] Tobacco Use History This section includes a history of the smoking, or tobacco-related health factors, that were collected on or before the date of the Encounter. The data comes from the [place] facility where the Encounter took place. Date/Time Smoking Status/Tobacco Use Comment F acility Sep 05, 2023 10:00 AM VA-TOBACCO NEVER USED [place] Sep 05, 2023 10:00 AM VA-TOBACCO QUIT 15 YRS OR MORE [place] Sep 08, 2022 11:30 AM VA-TOBACCO FORMER USER [place] Sep 08, 2022 11:30 AM VA-TOBACCO QUIT 15 YRS OR MORE [place] Jul 08, 2021 09:30 AM VA-TOBACCO FORMER USER [place] Jul 08, 2021 09:30 AM VA-TOBACCO QUIT 15 YRS OR MORE [place] May 28, 2020 10:04 AM VA-TOBACCO NEVER USED [place] May 29, 2018 09:51 AM VA-TOBACCO FORMER USER [place] May 29, 2018 09:51 AM VA-TOBACCO QUIT 15 YRS OR MORE [place] May 29, 2018 09:39 AM LIFETIME NON-TOBACCO USER [place] May 04, 2017 02:38 PM QUIT TOBACCO USE > 7 YEARS AGO [place] Apr 28, 2016 10:02 AM QUIT TOBACCO USE > 7 YEARS AGO smoked for 4 years about 2 pack a week quit 50 years ago [place] Aug 20, 2013 09:48 AM QUIT TOBACCO USE > 7 YEARS AGO 22 yo [place] Encounter Notes: All associated encounter notes This [...] ODELL presented for diabetes management treatment. Subjective: [place] referred to pharmacy PACT clinic by PCP [...] issues. = Prescriber Name: Aldo Westfall MD [address] [place] [address] Dr Evangelista, YOVANI [id number] Medication Name: Jardiance 10 mg tab Take [...] RX. He will discuss furosemide use with clerical warehouse worker; note concern of over-diuresis/dehydration. He will notify [...] of Preventive Care: Most recent visit to fisheries specialist: none; counseled Most recent visit to [...]
--- OUTSIDE RECORDS SUMMARY | 2024-11-07 12:55 | XMS_ITS | Encounter Summary ---
Author Name Department of [place] Organization Department [place] Address [address] [place] [address] Care Team Providers Care Welding Rod Coater Name Role Phone JUANITA BIRCH Primary Care [...] Bradford's Name Patient's Relationship to Policy Bradford [facility] MEDICARE SUPPLEMEN HANS [place] IND Nov 06, 2016 MEDICAR E SUPPLEM E [id number] Rao ODELL PATIENT MEDICARE (WNR) MEDICARE (M) PART A May 06, 2008 PART A [id number] [facility] Rao ODELL PATIENT MEDICARE (WNR) MEDICARE (M) PART B May 06, 2008 PART B [id number] [facility] [id number] Rao ODELL PATIENT MEDICARE (WNR) MEDICARE (M) PART A May 06, 2008 PART A [id number] Rao ODELL PATIENT MEDICARE (WNR) MEDICARE (M) PART B May 06, 2008 PART B [id number] [id number] [phone] Rao ODELL PATIENT Selected Encounter This section includes the information on record at [place] for the Encounter. Date/Time Encounter Type Encounter Description Reason Provider Source Apr 15, 2024 09:00 AM MTMS BY PHARM JB 15 MIN CLINICAL PHARMACY ICD-10-CM E11.65 Type 2 diabetes mellitus with hyperglycemia ELVIA WONG [place] Encounter Template Text not used by [place] Assessments - Encounter Diagnoses This section includes the primary and secondary diagnoses documented for the Encounter. Date/Time Primary/Secondary Diagnosis Diagnosis Name Provider Source Apr 15, 2024 09:09 AM PRIMARY Type 2 diabetes mellitus with hyperglycemia ELVIA WONG [place] Plan of Treatment: Future Appointments (+ 6 months) and Future Tests (+/- 45 days) The Plan of Treatment section includes future care activities for the patient from all [place] [facility]. This section includes future appointments and future orders which are active, pending or scheduled. Future Appointments This section includes appointments that were scheduled to occur 6 months from the date of the Encounter, up to a maximum of 20 appointments. The data comes from all [place] treatment facilities. Appointment Date/Time Appointment Type Appointme nt Facility Name Sep 03, 2024 10:00 AM AMBULATORY - MEDICINE [facility] [place] Oct 08, 2024 03:30 PM AMBULATORY - MEDICINE [facility] Active, Pending, and Scheduled Orders This section includes a listing of several types of active, pending, and scheduled orders, including clinic medications orders, diagnostic test orders, procedure orders and consult orders; where the start date of the order is 45 days before the date of the Encounter or 45 days after the date of theEncounter. The data comes from all [place] treatment [facility]. Test Date/Time Test Type Test Details Facility Name Mar 04, 2024 12:00 AM Laboratory - Chemistry Order HEMOGLOBIN A1C PANEL BLOOD (LAV-BLOOD) [facility] Mar 04, 2024 12:00 AM Laboratory - Chemistry Order CREATININE (eGFR 2020) BLOOD (SST-SERUM) [facility] Social History: Smoking Status (Most current) and Tobacco Use (All prior to encounter date) This section includes the most current, and the historical, smoking and tobacco- related health factors from the [place] facility where the Encounter took place. Current Smoking Status This section includes the most current smoking, or tobacco-related health factor, from the [place] facility where the Encounter took place. Date/Time Current Smoking Status Comment Facil ity Sep 05, 2023 10:00 AM VA-TOBACCO QUIT 15 YRS OR MORE [place] Tobacco Use History This section includes a history of the smoking, or tobacco-related health factors, that were collected on or before the date of the Encounter. The data comes from the [place] facility where the Encounter took place. Date/Time Smoking Status/Tobacco Use Comment Linda carranza Sep 05, 2023 10:00 AM VA-TOBACCO NEVER USED [place] Sep 05, 2023 10:00 AM VA-TOBACCO QUIT 15 YRS OR MORE [place] Sep 08, 2022 11:30 AM VA-TOBACCO FORMER USER [place] Sep 08, 2022 11:30 AM VA-TOBACCO QUIT 15 YRS OR MORE [place] Jul 08, 2021 09:30 AM VA-TOBACCO FORMER USER [place] Jul 08, 2021 09:30 AM VA-TOBACCO QUIT 15 YRS OR MORE [place] May 28, 2020 10:04 AM VA-TOBACCO NEVER USED [place] May 29, 2018 09:51 AM VA-TOBACCO FORMER USER [place] May 29, 2018 09:51 AM VA-TOBACCO QUIT 15 YRS OR MORE [place] May 29, 2018 09:39 AM LIFETIME NON-TOBACCO USER [place] May 04, 2017 02:38 PM QUIT TOBACCO USE > 7 YEARS AGO [place] Apr 28, 2016 10:02 AM QUIT TOBACCO USE > 7 YEARS AGO smoked for 4 years about 2 pack a week quit 50 years ago [place] Aug 20, 2013 09:48 AM QUIT TOBACCO USE > 7 YEARS AGO 22 yo [place] Encounter Notes: All associated encounter notes This section contains the clinical notes associated to the Encounter. Date/Time Encounter Note(s) Provider Source Apr 15, 2024 08:53 AM PHARMACY OUTPATIEN T NOTE: LOCAL TITLE: PHARMACY CLINIC NOTE STANDARD TITLE: PHARMACY OUTPATIENT NOTE DATE OF NOTE: APR 15, 2024@08:53 ENTRY DATE: APR 15, 2024@08:53:51 AUTHOR: ELVIA WONG COSIGNER: URGENCY: STATUS: COMPLETED [...] of Preventive Care: Most recent visit to second helper: none; counseled Most recent visit to optometry: [...] Elvia Wong PharmD Clinical Pharmacy Practitioner Signed: 04/15/2024 09:09 ELVIA WONG
--- OUTSIDE RECORDS SUMMARY | 2024-11-07 12:55 | XMS_ITS | Encounter Summary ---
Author Name Department of Vetera Affairs [place]) Organization Department of Vetera [place] Address [address] [place] [id number] Care Team Providers Care Traffic Director Name Role Phone JUANITA BIRCH Primary Care [...] Nov 06, 2016 MEDICAR E SUPPLEM E [id number] Rao ODELL PATIENT MEDICARE (WNR) MEDICARE (M) PART A May 06, 2008 PART A [id number] [facility] [phone] Rao ODELL PATIENT MEDICARE (WNR) MEDICARE (M) PART B May 06, 2008 PART B [id number] [facility] [id number] Rao ODELL PATIENT MEDICARE (WNR) MEDICARE (M) PART A May 06, 2008 PART A [id number] Rao ODELL PATIENT MEDICARE (WNR) MEDICARE (M) PART B May 06, 2008 PART B [id number] [id number] Rao ODELL PATIENT Selected Encounter This section includes the information on record at [place] for the Encounter. Date/Time Encounter Type Encounter Description Reason Provider Source Oct 08, 2024 03:30 PM MTMS BY PHARM SHIP CARPENTER 15 MIN TELEPHONE PRIMARY CARE ICD-10-CM E11.65 Type 2 diabetes mellitus with hyperglycemia ELVIA WONG [place] Encounter Template Text not used by [place] Assessments - Encounter Diagnoses This section includes the primary and secondary diagnoses documented for the Encounter. Date/Time Primary/Secondary Diagnosis Diagnosis Name Provider Source Oct 08, 2024 03:30 PM PRIMARY Type 2 diabetes mellitus with hyperglycemia ELVIA WONG [place] Plan of Treatment: Future Appointments (+ 6 months) and Future Tests (+/- 45 days) The Plan of Treatment section includes future care activities for the patient from all [facility]. This section includes future appointments and future orders which are active, pending or scheduled. Future Appointments This section includes appointments that were scheduled to occur 6 months from the date of the Encounter, up to a maximum of 20 appointments. The data comes from all [place] treatment facilities. Appointment Date/Time Appointment Type Appointme nt Facility Name Oct 25, 2024 08:30 AM AMBULATORY - MEDICINE [facility] Nov 12, 2024 08:30 AM AMBULATORY - MEDICINE [facility] Social History: Smoking Status (Most current) and Tobacco Use (All prior to encounter date) This section includes the most current, and the historical, smoking and tobacco- related health factors from the [place] facility where the Encounter took place. Current Smoking Status This section includes the most current smoking, or tobacco-related health factor, from the [place] facility where the Encounter took place. Date/Time Current Smoking Status Comment Buddy rooney Sep 03, 2024 10:00 AM VA-TOBACCO FORMER USER [place] Tobacco Use History This section includes a history of the smoking, or tobacco-related health factors, that were collected on or before the date of the Encounter. The data comes from the [place] facility where the Encounter took place. Date/Time Smoking Status/Tobacco Use Comment F acility Sep 03, 2024 10:00 AM DC-TOBACCO QUIT 15 YRS OR MORE [place] Sep 05, 2023 10:00 AM VA-TOBACCO FORMER USER [place] Sep 05, 2023 10:00 AM DC-TOBACCO NEVER USED [place] Sep 05, 2023 10:00 AM DC-TOBACCO QUIT 15 YRS OR MORE [place] Sep 08, 2022 11:30 AM VA-TOBACCO FORMER USER [place] Sep 08, 2022 11:30 AM VA-TOBACCO QUIT 15 YRS OR MORE [place] Jul 08, 2021 09:30 AM VA-TOBACCO FORMER USER [place] Jul 08, 2021 09:30 AM VA-TOBACCO QUIT 15 YRS OR MORE [place] May 28, 2020 10:04 AM VA-TOBACCO NEVER USED [place] May 29, 2018 09:51 AM VA-TOBACCO FORMER USER [place] May 29, 2018 09:51 AM VA-TOBACCO QUIT 15 YRS OR MORE [place] May 29, 2018 09:39 AM LIFETIME NON-TOBACCO USER [place] May 04, 2017 02:38 PM QUIT TOBACCO USE > 7 YEARS AGO [place] Apr 28, 2016 10:02 AM QUIT TOBACCO USE > 7 YEARS AGO smoked for 4 years about 2 pack a week quit 50 years ago [place] Aug 20, 2013 09:48 AM QUIT TOBACCO USE > 7 YEARS AGO 22 yo [place] Encounter Notes: All associated encounter notes This [...] ODELL contacted for diabetes management treatment. Subjective: [place] referred to pharmacy PACT clinic by PCP [...] Clinic's Next Scheduled Follow-up: ~3-4 weeks (cell: [phone]) HTN: Last BP at goal; no [id number]-I/ARB. Defer to PCP. ASCVD: atorvastatin 80mg/day. Microalb: 13.2mg/G (05/2022) History of Preventive Care: Most recent visit to scalping machine operator: none; counseled Most recent visit to [...]
--- OUTSIDE RECORDS SUMMARY | 2024-11-07 12:55 | XMS_ITS ---
Author Name Department of [place] Organization [place] Address [address] [address] Care Team Providers Care Correspondence School Instructor Name Role Phone JUANITA BIRCH Primary Care [...] Policy Bradford [facility] Nov 06, 2016 MEDICAR E SUPPLEM E [id number] Rao ODELL PATIENT MEDICARE (WNR) MEDICARE (M) PART A May 06, 2008 PART A [id number] [facility] [phone] Rao ODELL PATIENT MEDICARE (WNR) MEDICARE (M) PART B May 06, 2008 PART B [id number] Rao ODELL PATIENT MEDICARE (WNR) MEDICARE (M) PART A May 06, 2008 PART A [id number] Rao ODELL PATIENT MEDICARE (WNR) MEDICARE (M) PART B May 06, 2008 PART B [id number] [id number] [phone] Rao ODELL PATIENT Selected Encounter This section includes the information on record at [place] for the Encounter. Date/Time Encounter Type Encounter Description Reason Pro vider Source Jan 22, 2024 12:00 AM Outpatient Encounter EVENT (HISTORICAL) [facility] Encounter Template Text not used by [place] Plan of Treatment: Future Appointments (+ 6 months) and Future Tests (+/- 45 days) The Plan of Treatment section includes future care activities for the patient from all [place] treatmentfacilities. This section includes future appointments and future orders which are active, pending or scheduled. Future Appointments This section includes appointments that were scheduled to occur 6 months from the date of the Encounter, up to a maximum of 20 appointments. The data comes from all [place] treatment facilities. Appointment Date/Time Appointment Type Appointme nt Facility Name Jan 30, 2024 09:00 AM AMBULATORY - MEDICINE [facility] Feb 07, 2024 09:30 AM AMBULATORY - MEDICINE [facility] Mar 04, 2024 09:00 AM AMBULATORY - MEDICINE [facility] Apr 15, 2024 09:00 AM AMBULATORY - MEDICINE [facility] Active, Pending, and Scheduled Orders This section includes a listing of several types of active, pending, and scheduled orders, including clinic medications orders, diagnostic test orders, procedure orders and consult orders; where the start date of the order is 45 days before the date of the Encounter or 45 days after the date of theEncounter. The data comes from all [facility]. Test Date/Time Test Type Test Details Facility Name Dec 08, 2023 12:00 AM Laboratory - Chemistry Order URINALYSIS URINE [facility] Dec 08, 2023 12:00 AM Laboratory - Chemistry Order MICROALBUMIN CREATININE RATIO PANEL URINE (RANDOM) [facility] Dec 08, 2023 12:00 AM Laboratory - Chemistry Order CBC AND DIFF (AUTO) BLOOD (LAV-BLOOD) [facility] Dec 08, 2023 12:00 AM Laboratory - Chemistry Order HEMOGLOBIN A1C PANEL BLOOD (LAV-BLOOD) [facility] Dec 08, 2023 12:00 AM Laboratory - Chemistry Order BASIC METABOLIC PANEL (fasting) BLOOD (SST-SERUM) [facility] Dec 08, 2023 12:00 AM Laboratory - Chemistry Order LIPID PANEL FASTING BLOOD (SST-SERUM) [facility] Dec 08, 2023 12:00 AM Laboratory - Chemistry Order LIVER FUNCTION BLOOD (SST-SERUM) [facility] Dec 08, 2023 12:00 AM Laboratory - Chemistry Order CALCIUM BLOOD (SST-SERUM) [facility] Mar 04, 2024 12:00 AM Laboratory - Chemistry Order HEMOGLOBIN A1C PANEL BLOOD (LAV-BLOOD) [facility] Mar 04, 2024 12:00 AM Laboratory - Chemistry Order CREATININE (eGFR 2020) BLOOD (SST-SERUM) [facility] Encounter Notes: All associated encounter notes This section contains the clinical notes associated to the Encounter. Date/Time Encounter Note(s) Provider Source Jan 22, 2024 12:00 AM NONVA NOTE: LOCAL TITLE: NON-NM OUTPATIENT NOTES STANDARD TITLE: NONVA NOTE DATE OF NOTE: JAN 22, 2024 ENTRY DATE: FEB 16, 2024@12:43:36 AUTHOR: ROXANNE GARCIA EXP COSIGNER: URGENCY: STATUS: COMPLETED VistA Imaging - Scanned Document SCANNED DOCUMENT SIGNATURE NOT REQUIRED Electronically Filed: 02/16/2024 by: ROXANNE GOVEA [facility]
--- OUTSIDE RECORDS SUMMARY | 2024-11-07 12:55 | XMS_ITS | Encounter Summary ---
Author Name [place] Address [address] [place] [address] Care Team Providers Care Converter Skimmer Name Role Phone JUANITA BIRCH Primary Care [...] Name Patient's Relationship to Policy Bradford [facility] MEDICARE SUPPLEMEN HANS MA IND Nov 06, 2016 MEDICAR E SUPPLEM E [id number] Rao ODELL PATIENT MEDICARE (WNR) MEDICARE (M) PART A May 06, 2008 PART A [id number] [facility] Rao ODELL PATIENT MEDICARE (WNR) MEDICARE (M) PART B May 06, 2008 PART B [id number] [facility] [id number] Rao ODELL PATIENT MEDICARE (WNR) MEDICARE (M) PART A May 06, 2008 PART A [id number] Rao ODELL PATIENT MEDICARE (WNR) MEDICARE (M) PART B May 06, 2008 PART B [id number] Rao ODE[place] PATIENT Selected Encounter This section includes the information on record at [place] for the Encounter. Date/Time Encounter Type Encounter Description Reason Provider Source Mar 04, 2024 09:00 AM MTMS BY PHARM JB 15 MIN CLINICAL PHARMACY ICD-10-CM E11.65 Type 2 diabetes mellitus with hyperglycemia ELVIA WONG [place] Encounter Template Text not used by [place] Assessments - Encounter Diagnoses This section includes the primary and secondary diagnoses documented for the Encounter. Date/Time Primary/Secondary Diagnosis Diagnosis Name Provider Source Mar 04, 2024 09:23 AM PRIMARY Type 2 diabetes mellitus with hyperglycemia ELVIA WONG [place] Plan of Treatment: Future Appointments (+ 6 months) and Future Tests (+/- 45 days) The Plan of Treatment section includes future care activities for the patient from all [place] [facility] This section includes future appointments and future orders which are active, pending or scheduled. Future Appointments This section includes appointments that were scheduled to occur 6 months from the date of the Encounter, up to a maximum of 20 appointments. The data comes from all [place] treatment facilities. Appointment Date/Time Appointment Type Appointme nt Facility Name Apr 15, 2024 09:00 AM [facility] Sep 03, 2024 10:00 AM AMBULATORY - MEDICINE [facility] [...] of theEncounter. The data comes from all [place] treatment facilities. Test Date/Time Test Type Test Details Facility Name Mar 04, 2024 12:00 AM Laboratory - Chemistry Order HEMOGLOBIN A1C PANEL BLOOD (LAV-BLOOD) [facility] Mar 04, 2024 12:00 AM Laboratory - Chemistry Order CREATININE (eGFR 2020) BLOOD (SST-SERUM) [facility] Social History: Smoking Status (Most current) and Tobacco Use (All prior to encounter date) This section includes the most current, and the historical, smoking and tobacco- related health factors from the [place] facility where the Encounter took place. Current Smoking Status This section includes the most current smoking, or tobacco-related health factor, from the [place] facility where the Encounter took place. Date/Time Current Smoking Status Comment Facil ity Sep 05, 2023 10:00 AM VA-TOBACCO FORMER USER [place] Tobacco Use History This section includes a history of the smoking, or tobacco-related health factors, that were collected on or before the date of the Encounter. The data comes from the [place] facility where the Encounter took place. Date/Time Smoking Status/Tobacco Use Comment Linda carranza Sep 05, 2023 10:00 AM VA-TOBACCO NEVER USED [place] Sep 05, 2023 10:00 AM VA-TOBACCO QUIT 15 YRS OR MORE [place] Sep 08, 2022 11:30 AM VA-TOBACCO FORMER USER [place] Sep 08, 2022 11:30 AM VA-TOBACCO QUIT 15 YRS OR MORE [place] Jul 08, 2021 09:30 AM VA-TOBACCO FORMER USER [place] Jul 08, 2021 09:30 AM VA-TOBACCO QUIT 15 YRS OR MORE [place] May 28, 2020 10:04 AM VA-TOBACCO NEVER USED [place] May 29, 2018 09:51 AM VA-TOBACCO FORMER USER [place] May 29, 2018 09:51 AM VA-TOBACCO QUIT 15 YRS OR MORE [place] May 29, 2018 09:39 AM LIFETIME NON-TOBACCO USER [place] May 04, 2017 02:38 PM QUIT TOBACCO USE > 7 YEARS AGO [place] Apr 28, 2016 10:02 AM QUIT TOBACCO USE > 7 YEARS AGO smoked for 4 years about 2 pack a week quit 50 years ago [place] Aug 20, 2013 09:48 AM QUIT TOBACCO USE > 7 YEARS AGO 22 yo [place] Encounter Notes: All associated encounter notes This [...] of Preventive Care: Most recent visit to city carrier: none; counseled Most recent visit to optometry: non-VA 02/2024; states no . He was told it looks fantastic, no [...] Pharmacy Practitioner Signed: 04/05/2024 13:56 ELVIA WONG [place]
--- OUTSIDE RECORDS SUMMARY | 2024-11-07 12:55 | XMS_ITS | Encounter Summary ---
Author Name [facility] [place] Address [address] [place] [address] Care Team Providers Care Surgical Instrument Maker Name Role Phone JUANITA BIRCH Primary Care [...] Bradford [facility] [place] IND Nov 06, 2016 MEDICAR E SUPPLEM E [id number] Rao ODELL PATIENT MEDICARE (WNR) MEDICARE () PART A May 06, 2008 PART A [id number] [facility] Rao ODELL PATIENT MEDICARE (WNR) MEDICARE (M) PART B May 06, 2008 PART B [id number] Rao ODELL PATIENT MEDICARE (WNR) MEDICARE (M) PART A May 06, 2008 PART A [id number] Rao DOELL PATIENT MEDICARE (WNR) MEDICARE (M) PART B May 06, 2008 PART B [id number] [id number] CASSRao ICHAEL PATIENT Selected Encounter This section includes the information on record at [place] for the Encounter. Date/Time Encounter Type Encounter Description Reason Provider Source Mar 04, 2024 03:25 PM QNHP OL DIG ASSMT&MGMT 5-10 CLINICAL PHARMACY ICD-10-CM E11.65 Type [address] mellitus with hyperglycemia [address] Encounter Template Text not used by [place] Assessments - Encounter Diagnoses This section includes [...] 2024 10:00 AM AMBULATORY - MEDICINE [facility] Active, Pending, and Scheduled Orders This section includes a listing of several types of active, pending, and scheduled orders, including clinic medications orders, diagnostic test orders, procedure orders and consult orders; where the start date of the order is 45 days before the date of the Encounter or 45 days after the date of theEncounter. The data comes from all [place] treatment [facility]. Test Date/Time Test Type Test Details Facility Name Mar 04, 2024 12:00 AM Laboratory - Chemistry Order HEMOGLOBIN A1C PANEL BLOOD (LAV-BLOOD) [facility] Mar 04, 2024 12:00 AM Laboratory - Chemistry Order CREATININE (eGFR 2020) BLOOD (SST-SERUM) [facility] Encounter Notes: All associated encounter notes [...] formulary alternative(s) shea /celina/ Brii Lane, PharmD, [facility] Clinical Manager Decision Support Signed: 03/04/2024 15:[address] [facility]
--- OUTSIDE RECORDS SUMMARY | 2024-11-07 12:55 | XMS_ITS | Encounter Summary ---
Author Name Department of [place] Organization [place] Address [address] [place] [id number] Care Team Providers Care Skin Diver Name Role Phone JUANITA BIRCH Primary Care [...] Policy Bradford [facility] Nov 06, 2016 MEDICAR E SUPPLEM E [id number] Rao ODELL PATIENT MEDICARE (WNR) MEDICARE (M) PART A May 06, 2008 PART A [id number] [facility] Rao ODELL PATIENT MEDICARE (WNR) MEDICARE (M) PART B May 06, 2008 PART B [id number] Rao ODELL PATIENT MEDICARE (WNR) MEDICARE (M) PART A May 06, 2008 PART A [id number] [phone] Rao ODELL PATIENT MEDICARE (WNR) MEDICARE (M) PART B May 06, 2008 PART B [id number] Rao ODELL PATIENT Selected Encounter This [...] 07, 2024 09:30 AM AMBULATORY - MEDICINE [facility] Mar 04, 2024 09:00 AM [facility] Apr 15, 2024 09:00 AM AM[facility]ULATORY - MEDICINE [facility] [...] The data comes from all [place] treatment [facility]. Test Date/Time Test Type Test Details Facility Name Mar 04, 2024 12:00 AM Laboratory - Chemistry Order HEMOGLOBIN A1C PANEL BLOOD (LAV-BLOOD) [facility] Mar 04, 2024 12:00 AM Laboratory - Chemistry Order CREATININE (eGFR 2020) BLOOD (SST-SERUM) [facility]
--- OUTSIDE RECORDS SUMMARY | 2024-11-07 12:55 | XMS_ITS | Encounter Summary ---
Author Name Department of [place] Organization [place] Address [address] [place] [address] Care Team Providers Care Sash Finisher Name Role Phone JUANITA BIRCH Primary Care [...] Policy Bradford [facility] Nov 06, 2016 MEDICAR E SUPPLEM E [id number] Rao ODELL PATIENT MEDICARE (WNR) MEDICARE (M) PART A May 06, 2008 PART A [id number] [facility] Rao ODELL PATIENT MEDICARE (WNR) MEDICARE (M) PART B May 06, 2008 PART B [id number] Rao ODELL PATIENT MEDICARE (WNR) MEDICARE (M) PART A May 06, 2008 PART A [id number] Rao ODELL PATIENT MEDICARE (WNR) MEDICARE (M) PART B May 06, 2008 PART B [id number] Rao ODELL PATIENT Selected Encounter This [...] 2024 10:00 AM AMBULATORY - MEDICINE [facility] Active, Pending, and Scheduled Orders [...] Order HEMOGLOBIN A1C PANEL BLOOD (LAV-BLOOD) [facility] Mar 04, 2024 12:00 AM Laboratory - Chemistry Order CREATININE (eGFR 2020) BLOOD (SST-SERUM) [facility] Encounter Notes: All associated encounter notes [...] REQUIRED Electronically Filed: 07/02/2024 by: [facility]
--- OUTSIDE RECORDS SUMMARY | 2024-11-07 12:55 | XMS_ITS | Encounter Summary ---
Author Name [facility] of [facility] Affairs [place] Organization Department of [facility] [place] Address [address] [place] [address] Care Team Providers Care Cushion Gum Applicator Name Role Phone JUANITA BIRCH Primary Care [...] Nov 06, 2016 MEDICAR E SUPPLEM E [id number] [phone] Rao ODELL PATIENT MEDICARE (WNR) MEDICARE () PART A May 06, 2008 PART A [id number] [facility] Rao ODELL PATIENT MEDICARE (WNR) MEDICARE (M) PART B May 06, 2008 PART B [id number] Rao ODELL PATIENT MEDICARE (WNR) MEDICARE (M) PART A May 06, 2008 PART A [id number] Rao ODELL PATIENT MEDICARE (WNR) MEDICARE (M) PART B May 06, 2008 PART B [id number] TV91 LAFFERRao Estrella PATIENT Selected Encounter This section includes the information on record at [place] for the Encounter. Date/Time Encounter Type Encounter Description Reason Pro vider Source April 05, 2024 11:37 AM Outpatient Encounter ADMIN PAT ACTIVTIES (LUIS ENRIQUENONCT) IHE Encounter Template Text not used by [place] [...] The data comes from all [place] treatment facilities. Appointment Date/Time Appointment Type Appointme nt Facility Name Apr 15, 2024 09:00 AM AMBULATORY - MEDICINE [facility] Sep 03, 2024 10:00 AM AMBULATORY - MEDICINE [facility] Active, Pending, and Scheduled Orders This section includes a listing of several types of active, pending, and scheduled orders, including clinic medications orders, diagnostic test orders, procedure orders and consult orders; where the start date of the order is 45 days before the date of the Encounter or 45 days after the date of theEncounter. The data comes from all [place] treatment facilities. Test Date/Time Test Type Test Details Facility Name Mar 04, 2024 12:00 AM Laboratory - Chemistry Order HEMOGLOBIN A1C PANEL BLOOD (LAV-BLOOD) [facility] Mar 04, 2024 12:00 AM Laboratory - Chemistry Order CREATININE (eGFR 2020) BLOOD (SST-SERUM) [facility] Encounter Notes: All associated encounter notes [...] Patient Name: MATHEW ODELL Patient Primary Phone: [phone] Patient Primary [address]: [address] [place] [address] Patient : 1945 Patient Age: 78 Call Back Number: [phone] Caller/Recipient Relation to Patient: Self Scheduling Patient Expects Callback: Yes Administrative Administrative Note Reason: Other Administrative Note Comments: [place] called to inform PACT Team Clinical Pharmacist that he did not tolerate the medication he had been trialing. [place] would like to know what his options are now and what he needs to do next. Please call back at [phone], if no answer please leave a detailed message as it is a secure voicemail. /celina/ STEVIE BARONE [facility] Signed: 04/05/2024 11:38 Receipt Acknowledged By: 04/05/2024 13:01 /celina/ Ophelia Sheldon, KINGSLEY Registered Nurse (RN) 04/05/2024 13:53 /celina/ Elvia Wong PharmD Clinical Pharmacy Practitioner 04/05/2024 ADDENDUM STATUS: COMPLETED Spoke w/ pt. /celina/ Elvia Wong PharmD Clinical Pharmacy Practitioner Signed: 04/05/2024 13:57 STEVIE BARONE [place] [facility]
--- OUTSIDE RECORDS SUMMARY | 2024-11-07 12:56 | XMS_ITS | Encounter Summary ---
Author Name [facility] [place] Organization [place] Address [address] [place] [address] Care Team Providers Care Market Relationship Manager Name Role Phone JUANITA BIRCH Primary [...] Bradford's Name Patient's Relationship to Policy Bradford [facility] MEDICARE SUPPLEMEN [place] IND Nov 06, 2016 MEDICAR E SUPPLEM E [id number] Rao ODELL PATIENT MEDICARE (WNR) MEDICARE (M) PART A May 06, 2008 PART A [id number] [facility] Rao ODELL PATIENT MEDICARE (WNR) MEDICARE (M) PART B May 06, 2008 PART B [id number] [facility] [phone] [id number] Rao ODELL PATIENT MEDICARE (WNR) MEDICARE (M) PART A May 06, 2008 PART A [id number] Rao ODELL PATIENT MEDICARE (WNR) MEDICARE (M) PART B May 06, 2008 PART B [id number] [id number] [phone] Rao ODELL PATIENT Selected Encounter This section includes the information on record at [place] for the Encounter. Date/Time Encounter Type Encounter Description Reason Provider Source Oct 25, 2024 08:30 AM MTMS BY PHARM DUSTING AND BRUSHING MACHINE OPERATOR 15 MIN TELEPHONE PRIMARY CARE ICD-10-CM E11.65 Type 2 diabetes mellitus with hyperglycemia ELVIA WONG [place] Encounter Template Text not used by [place] Assessments - Encounter Diagnoses This section includes the primary and secondary diagnoses documented for the Encounter. Date/Time Primary/Secondary Diagnosis Diagnosis Name Provider Source Oct 25, 2024 08:30 AM PRIMARY Type 2 diabetes mellitus with hyperglycemia ELVIA WONG [place] Plan of Treatment: Future Appointments (+ 6 months) and Future Tests (+/- 45 days) The Plan of Treatment section includes future care activities for the patient from all [place] [facility]. This section includes future appointments and future orders which are active, pending or scheduled. Future Appointments This section includes appointments that were scheduled to occur 6 months from the date of the Encounter, up to a maximum of 20 appointments. The data comes from all [place] treatment facilities. Appointment Date/Time Appointment Type Appointme nt Facility Name Nov 12, 2024 08:30 AM AMBULATORY - MEDICINE [place] [facility] [place] [facility] Social History: Smoking Status (Most current) and Tobacco Use (All prior to encounter date) This section includes the most current, and the historical, smoking and tobacco- related health factors from the [facility] facility where the Encounter took place. Current Smoking Status This section includes the most current smoking, or tobacco-related health factor, from the VA facility where the Encounter took place. Date/Time Current Smoking Status Comment Facil ity Sep 03, 2024 10:00 AM VA-TOBACCO FORMER USER [place] Tobacco Use History This section includes a history of the smoking, or tobacco-related health factors, that were collected on or before the date of the Encounter. The data comes from the [place] facility where the Encounter took place. Date/Time Smoking Status/Tobacco Use Comment F acility Sep 03, 2024 10:00 AM VA-TOBACCO QUIT 15 YRS OR MORE [place] Sep 05, 2023 10:00 AM VA-TOBACCO FORMER USER [place] Sep 05, 2023 10:00 AM VA-TOBACCO NEVER USED [place] Sep 05, 2023 10:00 AM VA-TOBACCO QUIT 15 YRS OR MORE [place] Sep 08, 2022 11:30 AM VA-TOBACCO FORMER USER [place] Sep 08, 2022 11:30 AM VA-TOBACCO QUIT 15 YRS OR MORE [place] Jul 08, 2021 09:30 AM VA-TOBACCO FORMER USER [place] Jul 08, 2021 09:30 AM VA-TOBACCO QUIT 15 YRS OR MORE [place] May 28, 2020 10:04 AM VA-TOBACCO NEVER USED [place] May 29, 2018 09:51 AM VA-TOBACCO FORMER USER [place] May 29, 2018 09:51 AM VA-TOBACCO QUIT 15 YRS OR MORE [place] May 29, 2018 09:39 AM LIFETIME NON-TOBACCO USER [place] May 04, 2017 02:38 PM QUIT TOBACCO USE > 7 YEARS AGO [place] Apr 28, 2016 10:02 AM QUIT TOBACCO USE > 7 YEARS AGO smoked for 4 years about 2 pack a week quit 50 years ago [place] Aug 20, 2013 09:48 AM QUIT TOBACCO USE > 7 YEARS AGO 22 yo [place] Encounter Notes: All associated encounter notes This section contains the clinical notes associated to the Encounter. Date/Time Encounter Note(s) Provider Source Oct 25, 2024 08:35 AM PHARMACY OUTPATIEN T NOTE: LOCAL TITLE: PHARMACY CLINIC NOTE STANDARD TITLE: PHARMACY OUTPATIENT NOTE DATE OF NOTE: OCT 25, 2024@08:35 ENTRY DATE: OCT 25, 2024@08:35:19 AUTHOR: ELVIA WONG COSIGNER: URGENCY: STATUS: COMPLETED Known Allergies: Patient has answered NKA MATHEW ODELL contacted for diabetes management treatment. Subjective: [place] referred to pharmacy PACT clinic by PCP for consideration of GLP-1 agonist or SGLT-2 inhibitor. 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 He is followed by non-VA PCP q3 months. At time of last visit, insulin glargine was titrated. Continues using Chelsie 3 without issues. Notes he has been working on LSMs with some improvement in BG, but also difficult with holidays. Denies ADRs. Objective: Diabetes Medication Regimen: insulin glargine 30 units daily (PM) Previous DM Medication(s): empagliflozin [...] 41% 70-180mg/dL 26% 54-69mg/dL 0% <54mg/dL 0% 10/25/24 Chelsie 3: 7 day avg. 210mg/dL 12am-3am 210mg/dL 3am-6am 162 6am-9am 143 9am-12am 203 12am-3pm 218 3pm-6pm 240 6pm-9pm 259 9pm-12am 245 Low glucose events 0 Time in Target >250mg/dL 24% 181-250mg/dL 42% 70-180mg/dL 34% 54-69mg/dL 0% <54mg/dL 0% Patient eats on [...] older/high risk pts) A1c at goal but note BG trending high roland later in the day, though overall improvement noted. Pt notes he is working on LSMs, but some challenges during holidays; will continue to work on this. Reviewed factors that may contribute to this and discussed target BG <200mg/dL. No changes for now. Note pt could not tolerate GLP-1 agonist and SGLT-2 inhibitor. Will continue with Chelsie 3. Pt to contact clinic if BG trending <100mg/dL or >250mg/dL. Consider add'l therapy or insulin titration at f/u pending BG trend. Diabetes (Goal A1c<7%, FBG 90-110mg/dL, 2hPP<180mg/dL): - CONTINUE insulin glargine 30 units daily - Continue to SMBG 6x/day with Chelsie - Monitor for s/sx hypoglycemia and contact clinic if BG consistently < 70mg/dL - LSMs encouraged - Repeat A1c: November 2024 Clinic's Next Scheduled Follow-up: ~3 weeks (cell: [phone]) HTN: Last BP at goal; no TAMMIE-I/ARB. Defer to PCP. ASCVD: atorvastatin 80mg/day. Microalb: 13.2mg/G (05/2022) History of Preventive Care: Most recent visit to ultrasound technol: none; counseled Most recent visit to optometry: [...] Elvia Wong PharmD Clinical Pharmacy Practitioner Signed: 10/25/2024 08:44 ELVIA WONG [place]
[2024-11-07 13:24] LABS: Anion Gap 14 (12-20); Blood Urea Nitrogen 41 mg/dL (9-16); Calcium 9.2 mg/dL (8.4-10.2); Carbon Dioxide 28 mmol/L (22-29); Chloride 105 mmol/L (96-108); Estimated Glomerular Filt Rate 31; Glucose Random 157 mg/dL (60-115); Potassium 4.2 mmol/L (3.3-5.1); Sodium 143 mmol/L (135-145)
== END 2024-11-07 11:47 | disposition home or self-care (01) ==
LOC: HO.HMGCLDS 11:46
PROVIDERS: PCP Family Medicine; Visit Provider Internal Medicine Cardiovascular Disease
DX: I48.91 Unspecified atrial fibrillation (principal)
CPT/HCPCS: 36415; 80048

== ENCOUNTER 2024-11-14 08:50 | Outpatient (AMB) | payer MEDICARE, OTHER, SELFPAY ==
[2024-11-14 08:56] VITALS: BP 122/68; PULSE 68; BMI 35.6
--- NOTE | 2024-11-14 08:56 | MHC.OFFVIS ---
Vital Signs 11/14/24 08:56 Height 5 ft 10 in Weight 248 lb 3.848 oz BMI 35.6 BP 122/68 Blood Pressure Location Lt brachial Position Sitting Pulse 68 Pulse Source Monitor Intake Visit Reasons: f/up- [facility] f/up Fertilizer Applicator Required: No Allergies No Known Allergies [No Known Allergies*] Allergy (Verified 11/14/24 08:58) Medication List - Last Reconciled 11/14/24 by Hawa Chaudhary NP-C apixaban (Eliquis) 2.5 mg PO BID atorvastatin 80 mg PO DAILY bupropion HCl SR 150 mg PO DAILY famotidine 20 mg PO DAILY insulin glargine (Lantus U-100 Insulin) 30 units subcut BEDTIME metoprolol tartrate 12.5 mg PO BID nebulizers As directed Oxygen Home Use As directed sertraline 200 mg PO DAILY torsemide 20 mg PO DAILY HPI HPI f/up- [facility] f/up: Details: Dave is an 79-year-old male past medical history of hypertension, hyperlipidemia, diabetes, coronary artery disease status post 4 vessel coronary artery bypass grafting 2019, aortic stenosis who was recently admitted with findings of new onset atrial fibrillation. He was started on medication for rate control and converted to sinus rhythm. He was started on anticoagulation and now presents for follow-up. Today he reports that he has been feeling well since his hospital discharge. He has been doing only light activities. He has chronic shortness of breath with activity related to his asbestosis. He did try the Multaq but states he felt very sluggish on it and needed to stop. He is feeling much better off of that medication. He thought the blood thinner may have contributed to that feeling so he initially held it and has been taking only 1 pill daily recently. No chest discomfort at rest or with activity. No PND, orthopnea or edema. No palpitations, lightheadedness, presyncope, syncope, falls. [facility] Medical History (Updated 11/14/24 @ 12:16 by SUE Jacinto) Paroxysmal atrial fibrillation Coronary artery disease Aortic stenosis Atrial fibrillation, new onset Hypoxia Pulmonary nodules Chronic restrictive lung disease Chronic respiratory failure Pulmonary fibrosis Asbestosis Surgical History (Updated 11/14/24 @ 12:18 by SUE Jacinto) History of open heart surgery Family History Mother Ovarian cancer Father Heart attack Brother Heart attack Sister Diabetes Social History Alcohol intake: former Year quit: 1989 Patient Tobacco Use Status: Former Tobacco user Tobacco use type: Cigarette Years Smoked: 8 Years service: Yes Review of Systems Const All systems reviewed & are unremarkable except as noted in HPI and below ENT Denies dizziness Card Denies chest pain, Denies chest pain at rest, Denies chest pain with activity, Denies rapid heart rate, Denies pedal edema, Denies edema, Denies leg edema, Denies lightheadedness, Denies palpitations, Reports dyspnea, Reports dyspnea on exertion and Denies orthopnea Resp Denies cough, Reports dyspnea and Reports dyspnea on exertion GI Denies hematochezia and Denies change in stool character Musc Denies abnormal gait, Denies limited range of motion, Denies muscle cramps, Denies muscle weakness, Denies numbness, Denies radiating pain into limb, Denies stiffness and Denies tingling Neuro Denies abnormal gait, Denies dizziness, Denies numbness and Denies tingling Endo Denies palpitations Physical Exam Vital Signs: Last Vital Signs Pulse 68 11/14/24 08:56 BP 122/68 11/14/24 08:56 BMI result Body Mass Index 35.6 Const General: cooperative, healthy appearing, comfortable and no acute distress Orientation/consciousness: patient oriented x3 Neck Neck: Yes normal visual inspection Resp Effort & Inspection: normal respiratory effort Auscultation: clear to auscultation bilaterally, no crackles, no rales, no rhonchi and no wheezes Cardio Jugular venous distension: no JVD Rate: regular rate Rhythm: regular rhythm Heart sounds: S2 normal heart sound present, Murmur heart sound present (2/6 systolic murmur, right sternal border) and no rubs Neuro General: patient oriented x3 Extrem General: Yes normal to inspection, No no pedal edema and No calf tenderness Psych Appearance: grossly normal Mental Status: mental status grossly normal Speech and movement: Normal speech and movement present Office Procedures EKG Details: Today, read by me, Sinus rhythm, rate 68, Qtc 448ms [id number], Complete Assessment & Plan Assessment & Plan (1) Paroxysmal atrial fibrillation: Code(s): I48.0 - Paroxysmal atrial fibrillation Category: Medical Plan: New finding of atrial fibrillation in his PCP office. He was admitted to [facility] and medically managed. He was put on rate slowing agents and converted to sinus rhythm. He was started on Eliquis for anticoagulation and Multaq to help maintain rhythm control. An echocardiogram done 10/16/2024 showed EF 50-55%, mild LVH, moderately severe aortic stenosis, paradoxical low-flow, low gradient , mildly dilated ascending aorta with moderate atherosclerotic changes. Today he reports that the Multaq made him feel very sluggish and he needed to stop it. He also has been taking only 1 tablet of the Eliquis recently. His EKG done today is showing sinus rhythm, rate 68. He has not noticed any heart palpitations. Reviewed with Dr. Marino. Will keep him on metoprolol only. Continue Eliquis, instructed to take b.i.d. as directed. Will check a Holter monitor before his next visit to assess for asymptomatic PAF. (2) Aortic stenosis, severe: Code(s): I35.0 - Nonrheumatic aortic (valve) stenosis Category: Medical Plan: Echocardiogram showing findings of moderately severe, low-flow, low gradient aortic stenosis. He has chronic shortness of breath with activity. He denies chest discomfort or lightheadedness. Discussed need for cardiac catheterization with him as part of TAVR evaluation. Risks of the procedure reviewed and he is agreeable to proceed. Will check BMP, CBC, PT INR. Will arrange for diagnostic catheterization in the next few weeks. Cardiology follow-up 2 weeks post procedure. (3) Coronary artery disease: Code(s): I25.10 - Atherosclerotic heart disease of [place] coronary artery without angina pectoris Category: Medical Plan: History of CAD, prior 4 vessel Coronary artery bypass grafting 2019. No chest discomfort, chronic shortness of breath. He is not on aspirin as he is now on Eliquis. He is on high-dose atorvastatin and metoprolol. (4) Hypertension: Comment: Stable Code(s): I10 - Essential (primary) hypertension Category: Medical Plan: Controlled at this time. No med changes made (5) Hx of CABG: Comment: 2019 BAXTER to LAD, GSV to the diagonal, radial artery to the ramus intermedius, GSV to the posterior descending branch of left circumflex. He is right coronary nondominant Code(s): Z95.1 - Presence of aortocoronary bypass graft Category: Surgical Plan: As above (6) Hospital discharge follow-up: Code(s): Z09 - Encounter for follow-up examination after completed treatment for conditions other than malignant neoplasm Category: Medical Plan: As above Plan Time spent on chart review, documentation, interview and assessment Orders: Orders Cardiac Cath LT Diagnostic Today SUE Jacinto I25.10 - Atherosclerotic heart disease of [place] coronary artery without angina pectoris, I35.0 - Nonrheumatic aortic (valve) stenosis Basic Metabolic Panel Today SUE Jacinto I35.0 - Nonrheumatic aortic (valve) stenosis Basic Metabolic Panel 11/07/24 Charles Marino MD I48.91 - Unspecified atrial fibrillation Complete Blood Count Auto Diff Today SUE Jacinto I35.0 - Nonrheumatic aortic (valve) stenosis Prothrombin Time INR Today SUE Jacinto I35.0 - Nonrheumatic aortic (valve) stenosis Medications: Changed From apixaban (Eliquis) 2.5 mg PO ONCE To apixaban (Eliquis) 2.5 mg PO BID Mary Patel MD Coding Level of Care Code Est Pt Level 4 (91218) Complex EM visit Add On G2211 Diagnoses Paroxysmal atrial fibrillation I48.0 Aortic stenosis, severe I35.0 Coronary artery disease I25.10 Hypertension I10 Hx of CABG Z95.1 Hospital discharge follow-up Z09 CPT Codes EKG - CPT: [id number], Complete ([id number]) Time Spent (min) 36
--- OUTSIDE RECORDS SUMMARY | 2024-11-14 09:06 | XMS_ITS | Encounter Summary ---
Author Name [facility] [place] Organization [facility] [place] [place] Address [address] [place] [id number] Care Team Providers Care Weir Fisher Name Role Phone JUANITA BIRCH Primary Care [...] Bradford's Name Patient's Relationship to Policy Bradford [facility] MEDICARE SUPPLEMEN HANS MA IND Nov 06, 2016 MEDICAR E SUPPLEM E [id number] Rao ODELL PATIENT MEDICARE (WNR) MEDICARE (M) PART B May 06, 2008 PART B [id number] [facility] Rao ODELL PATIENT MEDICARE (WNR) MEDICARE (M) PART A May 06, 2008 PART A [id number] [facility] [id number] Rao ODELL PATIENT MEDICARE (WNR) MEDICARE (M) PART A May 06, 2008 PART A [id number] [phone] Rao ODELL PATIENT MEDICARE (WNR) MEDICARE (M) PART B May 06, 2008 PART B [id number] Rao ODELL PATIENT Selected Encounter This section includes the information on record at [place] for the Encounter. Date/Time Encounter Type Encounter Description Reason Provider Source Oct 25, 2024 08:30 AM MTMS BY PHARM CLOTH FINISHING RANGE BACK TENDER 15 MIN TELEPHONE PRIMARY CARE ICD-10-CM E11.65 Type 2 diabetes mellitus with hyperglycemia IDA WONG Darrel Encounter Template Text not used by [place] Assessments - Encounter Diagnoses This section includes the primary and secondary diagnoses documented for the Encounter. Date/Time Primary/Secondary Diagnosis Diagnosis Name Provider Source Oct 25, 2024 08:30 AM PRIMARY Type 2 diabetes mellitus with hyperglycemia IDA WONG [place] Plan of Treatment: Future Appointments (+ 6 months) and Future Tests (+/- 45 days) The Plan of Treatment section includes future care activities for the patient [facility] This section includes future appointments and future orders which are active, pending or scheduled. Future Appointments This section includes appointments that were scheduled to occur 6 months from the date of the Encounter, up to a maximum of 20 appointments. The data comes from all [facility]. Appointment Date/Time Appointment Type Appointme nt Facility Name Nov 12, 2024 08:30 AM AMBULATORY - MEDICINE [facility] Dec 30, 2024 08:30 AM AMBULATORY - MEDICINE [facility] Active, Pending, and Scheduled Orders This section includes a listing of several types of active, pending, and scheduled orders, including clinic medications orders, diagnostic test orders, procedure orders and consult orders; where the start date of the order is 45 days before the date of the Encounter or 45 days after the date of theEncounter. The data comes from all [facility]. Test Date/Time Test Type Test Details Facility Name Nov 12, 2024 12:00 AM Laboratory - Chemistry Order HEMOGLOBIN A1C PANEL BLOOD (LAV-BLOOD) [facility] Nov 12, 2024 12:00 AM Laboratory - Chemistry Order CREATININE (eGFR 2020) BLOOD (SST-SERUM) [facility] Social History: Smoking Status (Most current) and Tobacco Use (All prior to encounter date) This section includes the most current, and the historical, smoking and tobacco- related health factors from the [place] facility where the Encounter took place. Current Smoking Status This section includes the most current smoking, or tobacco-related health factor, from the [facility] facility where the [facility]counter took place. Date/Time Current Smoking Status Comment Buddy ity Sep 03, 2024 10:00 AM VA-TOBACCO FORMER USER [place] Tobacco Use History This section includes a history of the smoking, or tobacco-related health factors, that were collected on or before the date of the Encounter. The data comes from the [facility] where the Encounter took place. Date/Time Smoking Status/Tobacco Use Comment F acility Sep 03, 2024 10:00 AM VA-TOBACCO QUIT 15 YRS OR MORE [place] Sep 05, 2023 10:00 AM VA-TOBACCO FORMER USER [place] Sep 05, 2023 10:00 AM VA-TOBACCO NEVER USED [place] Sep 05, 2023 10:00 AM VA-TOBACCO QUIT 15 YRS OR MORE [place] Sep 08, 2022 11:30 AM VA-TOBACCO FORMER USER [place] Sep 08, 2022 11:30 AM VA-TOBACCO QUIT 15 YRS OR MORE [place] Jul 08, 2021 09:30 AM VA-TOBACCO FORMER USER [place] Jul 08, 2021 09:30 AM VA-TOBACCO QUIT 15 YRS OR MORE [place] May 28, 2020 10:04 AM VA-TOBACCO NEVER USED [place] May 29, 2018 09:51 AM VA-TOBACCO FORMER USER [place] May 29, 2018 09:51 AM VA-TOBACCO QUIT 15 YRS OR MORE [place] May 29, 2018 09:39 AM LIFETIME NON-TOBACCO USER [place] May 04, 2017 02:38 PM QUIT TOBACCO USE > 7 YEARS AGO [place] Apr 28, 2016 10:02 AM QUIT TOBACCO USE > 7 YEARS AGO smoked for 4 years about 2 pack a week quit 50 years ago [place] Aug 20, 2013 09:48 AM QUIT TOBACCO USE > 7 YEARS AGO 22 yo [place] Encounter Notes: All associated encounter notes This section contains the clinical notes associated to the Encounter. Date/Time Encounter Note(s) Provider Source Nov 08, 2024 11:08 AM ADDENDUM: LOCAL TITLE: Addendum STANDARD TITLE: ADDENDUM DATE OF NOTE: NOV 08, 2024@11:08:06 ENTRY DATE: NOV 08, 2024@11:08:08 AUTHOR: IDA WONG EXP COSIGNER: URGENCY: STATUS: COMPLETED Will ask military technician to please notify pt that he does not need labwork for upcoming telephone visit. Will discuss when next labs are due at visit. Thank you! /celina/ Ida Wong PharmD Clinical Pharmacy Practitioner Signed: 11/08/2024 11:08 Receipt Acknowledged By: 11/08/2024 11:39 /celina/ KALYN TAYLOR Clinical Autocad Electrical Designer == --- Original Document --- 10/25/24 PHARMACY CLINIC NOTE: Known Allergies: Patient has answered NKA MATHEW ODELL contacted for diabetes management treatment. Subjective: [place] referred to pharmacy PACT clinic by PCP [...] Clinic's Next Scheduled Follow-up: ~3 weeks (cell: [phone]) HTN: Last BP at goal; no TAMMIE-I/ARB. Defer to PCP. ASCVD: atorvastatin 80mg/day. Microalb: 13.2mg/G (05/2022) History of Preventive Care: Most recent visit to electronic engineering technician: none; counseled Most recent visit to optometry: [...] Ida Wong PharmD Clinical Pharmacy Practitioner Signed: 10/25/2024 08:44 11/08/2024 ADDENDUM STATUS: UNSIGNED You may not VIEW this UNSIGNED Addendum. IDA WONG Oct 25, 2024 08:35 AM PHARMACY OUTPATIEN T NOTE: LOCAL TITLE: PHARMACY CLINIC NOTE STANDARD TITLE: PHARMACY OUTPATIENT NOTE DATE OF NOTE: OCT 25, 2024@08:35 ENTRY DATE: OCT 25, 2024@08:35:19 AUTHOR: IDA WONG EXP COSIGNER: URGENCY: STATUS: COMPLETED PHARMACY CLINIC NOTE Has ADDENDA Known Allergies: Patient has answered NKA MATHEW ODELL contacted for diabetes management treatment. Subjective: [place] referred to pharmacy PACT clinic by PCP [...] Clinic's Next Scheduled Follow-up: ~3 weeks (cell: [phone]) HTN: Last BP at goal; no TAMMIE-I/ARB. Defer to PCP. ASCVD: atorvastatin 80mg/day. Microalb: 13.2mg/G (05/2022) History of Preventive Care: Most recent visit to electronic engineering technician: none; counseled Most recent visit to optometry: [...] /raul Wong PharmD Clinical Pharmacy Practitioner Signed: 10/25/2024 08:44 11/08/2024 ADDENDUM STATUS: COMPLETED Will ask military technician to please notify pt that he does not need labwork for upcoming telephone visit. Will discuss when next labs are due at visit. Thank you! /raul Wong PharmD Clinical Pharmacy Practitioner Signed: 11/08/2024 11:08 Receipt Acknowledged By: 11/08/2024 11:39 /celina/ KALYN TAYLOR Clinical Autocad Electrical Designer 11/08/2024 ADDENDUM STATUS: COMPLETED Called patient, let him know he does not need any labwork prior to appt. /celina/ KALYN TAYLOR Clinical Autocad Electrical Designer Signed: 11/08/2024 11:40 IDA WONG
--- OUTSIDE RECORDS SUMMARY | 2024-11-14 09:06 | XMS_ITS | Encounter Summary ---
Author Name [facility] [place] Organization [place] Address [address] [place] [address] Care Team Providers Care Intermediate Accountant Name Role Phone JUANITA BIRCH Primary Care [...] Bradford's Name Patient's Relationship to Policy Bradford [facility] MEDICARE SUPPLEMEN HANS MA IND Nov 06, 2016 MEDICAR E SUPPLEM E [id number] Rao ODELL PATIENT MEDICARE (WNR) MEDICARE (M) PART A May 06, 2008 PART A [id number] [facility] Rao ODELL PATIENT MEDICARE (WNR) MEDICARE (M) PART B May 06, 2008 PART B [id number] [facility] [id number] Rao ODELL PATIENT MEDICARE (WNR) MEDICARE (M) PART A May 06, 2008 PART A [id number] [phone] Rao ODELL PATIENT MEDICARE (WNR) MEDICARE (M) PART B May 06, 2008 PART B [id number] Rao ODELL PATIENT Selected Encounter This section includes the information on record at [place] for the Encounter. Date/Time Encounter Type Encounter Description Reason Provider Source Nov 12, 2024 08:30 AM MTMS BY PHARM FIBERGLASS ROLLER 15 MIN TELEPHONE PRIMARY CARE ICD-10-CM E11.65 Type 2 diabetes mellitus with hyperglycemia ELVIA WONG Darrel Encounter Template Text not used by [place] Assessments - Encounter Diagnoses This section includes the primary and secondary diagnoses documented for the Encounter. Date/Time Primary/Secondary Diagnosis Diagnosis Name Provider Source Nov 12, 2024 08:30 AM PRIMARY Type 2 diabetes mellitus with hyperglycemia ELVIA WONG [place] Plan of Treatment: Future Appointments (+ 6 months) and Future Tests (+/- 45 days) The Plan of Treatment section includes future care activities for the patient [facility] [place] [facility]. This section includes future appointments and future orders which are active, pending or scheduled. Future Appointments This section includes appointments that were scheduled to occur 6 months from the date of the Encounter, up to a maximum of 20 appointments. The data comes from all [place] treatment facilities. Appointment Date/Time Appointment Type Appointme nt Facility Name Dec 30, 2024 08:30 AM AMBULATORY - MEDICINE [facility] Active, Pending, and Scheduled Orders This section includes a listing of several types of active, pending, and scheduled orders, including clinic medications orders, diagnostic test orders, procedure orders and consult orders; where the start date of the order is 45 days before the date of the Encounter or 45 days after the date of theEncounter. The data comes from all [place] treatment facilities. Test Date/Time Test Type Test Details Facility Name Nov 12, 2024 12:00 AM Laboratory - Chemistry Order HEMOGLOBIN A1C PANEL BLOOD (LAV-BLOOD) [facility] Nov 12, 2024 12:00 AM Laboratory - Chemistry Order CREATININE (eGFR 2020) BLOOD (SST-SERUM) [facility] Social History: Smoking Status (Most current) and Tobacco Use (All prior to encounter date) This section includes the most current, and the historical, smoking and tobacco- related health factors from the [place] facility where the Encounter took place. Current Smoking Status This section includes the most current smoking, or tobacco-related health factor, from the [place] facility where the Encounter took place. Date/Time Current Smoking Status Comment Facil ity Sep 03, 2024 10:00 AM VA-TOBACCO FORMER USER [place] Tobacco Use History This section includes a history of the smoking, or tobacco-related health factors, that were collected on or before the date of the Encounter. The data comes from the [place] facility where the Encounter took place. Date/Time Smoking Status/Tobacco Use Comment F acility Sep 03, 2024 10:00 AM VA-TOBACCO QUIT 15 YRS OR MORE [place] Sep 05, 2023 10:00 AM VA-TOBACCO FORMER USER [place] Sep 05, 2023 10:00 AM VA-TOBACCO NEVER USED [place] Sep 05, 2023 10:00 AM VA-TOBACCO QUIT 15 YRS OR MORE [place] Sep 08, 2022 11:30 AM VA-TOBACCO FORMER USER [place] Sep 08, 2022 11:30 AM VA-TOBACCO QUIT 15 YRS OR MORE [place] Jul 08, 2021 09:30 AM VA-TOBACCO FORMER USER [place] Jul 08, 2021 09:30 AM VA-TOBACCO QUIT 15 YRS OR MORE [place] May 28, 2020 10:04 AM VA-TOBACCO NEVER USED [place] May 29, 2018 09:51 AM VA-TOBACCO FORMER USER [place] May 29, 2018 09:51 AM VA-TOBACCO QUIT 15 YRS OR MORE [place] May 29, 2018 09:39 AM LIFETIME NON-TOBACCO USER [place] May 04, 2017 02:38 PM QUIT TOBACCO USE > 7 YEARS AGO [place] Apr 28, 2016 10:02 AM QUIT TOBACCO USE > 7 YEARS AGO smoked for 4 years about 2 pack a week quit 50 years ago [place] Aug 20, 2013 09:48 AM QUIT TOBACCO USE > 7 YEARS AGO 22 yo [place] Encounter Notes: All associated encounter notes This section contains the clinical notes associated to the Encounter. Date/Time Encounter Note(s) Provider Source Nov 12, 2024 08:15 AM PHARMACY OUTPATIEN T NOTE: LOCAL TITLE: PHARMACY CLINIC NOTE STANDARD TITLE: PHARMACY OUTPATIENT NOTE DATE OF NOTE: NOV 12, 2024@08:15 ENTRY DATE: NOV 12, 2024@08:15:08 AUTHOR: ELVIA WONG COSIGNER: URGENCY: STATUS: COMPLETED Known Allergies: Patient has answered NKA MATHEW MAVIS CASS contacted for diabetes management treatment. Subjective: [place] referred to pharmacy PACT clinic by PCP for consideration of GLP-1 agonist or SGLT-2 inhibitor. 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 He is followed by non-VA PCP q3 months. At time of last visit, no changes were made to DM regimen. Pt had been working on LSMs with improvement in BG. Continues using Chelsie 3 without issues. Denies ADRs. Objective: Diabetes Medication Regimen: insulin [...] H 105 CREATININE-EGFR 09/02/24 09:36 2.10 H CrCl: CRCL IBW: CrCl(est): 32.5 mL/min (Creat:2.10 09/02/24) CRCL ACT: 41.86 mL/min CRCL ADJ: 32.5 mL/min (09/02/24) Patient self-monitoring of blood glucose: At home: X Patient self-monitors blood glucose 1x day and reports the following (mg/dl): 10/08/24 Chelsie 3: 7 day avg. 226mg/dL [...] 42% 70-180mg/dL 34% 54-69mg/dL 0% <54mg/dL 0% 11/12/24 Chelsie 3: 7 day avg. 193mg/dL 3am-6am 214 6am-9am 154 9am-12am 129 12am-3pm 176 3pm-6pm 185 6pm-9pm 230 9pm-12am 211 Low glucose events 0 Time in Target >250mg/dL 15% 181-250mg/dL 39% 70-180mg/dL 46% 54-69mg/dL 0% <54mg/dL 0% Patient eats on avg. 2x day: Diet Patterns: B: goes out w/ ; eggs + toast + potato or pancakes L: skips D: varies; meatloaf + corn + potato Snacks: muffin, klondike bar, apple sauce Drinks: water Exercise: limited w/ cold weather HYPOGLYCEMIC Events: 0 in the last 2 [...] <4% or <1% for older/high risk pts) Chelsie indicates improvement with BG mostly at goal with exception of 6pm-6am likely d/t higher CHO intake at dinnertime and nighttime snacking. Discussed target CHO and factors that may lead to higher BG. Given AM BG at goal, hesitate to increase insulin glargine. Consider DPP-4 inhibitor, but pt declines for now. Will plan to continue with LSMs. Repeat labwork then reassess. Pt to contact clinic if BG trending <100mg/dL or >250mg/dL. As noted previously, pt could not tolerate GLP-1 agonist and SGLT-2 inhibitor. Diabetes (Goal A1c<7%, FBG 90-110mg/dL, 2hPP<180mg/dL): - CONTINUE insulin glargine 30 units daily - Continue to SMBG 6x/day with Chelsie - Monitor for s/sx hypoglycemia and contact clinic if BG consistently < 70mg/dL - LSMs encouraged - Repeat A1c: prior to f/u Clinic's Next Scheduled Follow-up: ~6 weeks (cell: [phone]) HTN: Last BP at goal; no TAMMIE-I/ARB. Defer to PCP. ASCVD: atorvastatin 80mg/day. Microalb: 13.2mg/G (05/2022) History of Preventive Care: Most recent visit to entertainment centre manager: none; counseled Most recent visit to optometry: [...] Elvia Wong PharmD Clinical Pharmacy Practitioner Signed: 11/12/2024 08:42 ELVIA WONGFIELD
== END 2024-11-14 09:56 | disposition home or self-care (01) ==
PROVIDERS: PCP Family Medicine; Visit Provider Nurse Practitioner Family
DX: I48.0 Paroxysmal atrial fibrillation (principal); I35.0 Nonrheumatic aortic (valve) stenosis; I25.10 Atherosclerotic heart disease of native coronary artery without angina pectoris; I10 Essential (primary) hypertension; Z95.1 Presence of aortocoronary bypass graft; Z09 Encounter for follow-up examination after completed treatment for conditions other than malignant neoplasm
CPT/HCPCS: 93010; 99214; G2211

== ENCOUNTER → 2024-11-14 08:50 | Outpatient (BNVA) | payer MEDICARE, OTHER, SELFPAY | PROVIDERS: PCP Family Medicine; Visit Provider Nurse Practitioner Family | DX: Z09 Encounter for follow-up examination after completed treatment for conditions other than malignant neoplasm (principal); I48.0 Paroxysmal atrial fibrillation; I35.0 Nonrheumatic aortic (valve) stenosis; I25.10 Atherosclerotic heart disease of native coronary artery without angina pectoris; I10 Essential (primary) hypertension; Z95.1 Presence of aortocoronary bypass graft | CPT/HCPCS: 93005; 99212 ==

== ENCOUNTER → 2024-11-28 23:59 | Outpatient (BNV) | payer MEDICARE, OTHER, SELFPAY | PROVIDERS: PCP Family Medicine; Visit Provider Internal Medicine Cardiovascular Disease | DX: I35.0 Nonrheumatic aortic (valve) stenosis (principal) | CPT/HCPCS: 93461; 99152 ==

== ENCOUNTER 2024-12-09 09:51 | Outpatient (AMB) | payer MEDICARE, OTHER, SELFPAY ==
--- NOTE | 2024-12-09 10:14 | MHC.OFFVIS ---
Vital Signs 12/09/24 10:15 Height 5 ft 10 in Weight 216 lb 7.903 oz BMI 31.1 BP 110/70 Blood Pressure Location Lt brachial Position Sitting Pulse 79 Pulse Source Monitor Intake Visit Reasons: TAVR Consult/ Cath fu Intake Note: TAVR Consult/ Cath F/up Student Dean Required: No Accompanied by: Spouse Allergies No Known Allergies [No Known Allergies*] Allergy (Verified 11/14/24 08:58) Medication List - Last Reconciled 12/09/24 by John Hutson MD apixaban (Eliquis) 2.5 mg PO BID atorvastatin 80 mg PO DAILY bupropion HCl SR 150 mg PO DAILY famotidine 20 mg PO DAILY insulin glargine (Lantus U-100 Insulin) 30 units subcut BEDTIME metoprolol tartrate 12.5 mg PO BID nebulizers As directed Oxygen Home Use As directed sertraline 200 mg PO DAILY torsemide 20 mg PO DAILY HPI Comments Details: Dave is here for discussion for transcatheter aortic valve replacement. He is a 79-year-old gentleman with background history of pulmonary asbestosis, COPD on oxygen with ambulation, congestive heart failure and multivessel coronary artery disease for which he underwent coronary artery bypass grafting in the past. He has been experiencing fatigue and shortness of breath with activities over the last few months. He is saying his breathing was never normal with pulmonary asbestosis and COPD but over the last few months he has noticed more shortness of breath and easy fatigability. He apparently went to his primary care physician's office recently and was noticed to be in AFib. This led to echocardiography which raise concern for paradoxical low-flow low gradient severe aortic valve stenosis. Subsequently he had cardiac catheterization which showed patent grafts and a calculated valve area of 0.9 cm2 and mean gradient of 34 mm Hg. He was in a low-flow state with a stroke volume index of 32 mL per m2. Calculated aortic valve area by echocardiography was 0.72 cm2. He is denying any anginal symptoms. He has been experiencing some nosebleeds but has been putting Vaseline in his nostrils more recently and has not bled. He said he went to ER 1 time with epistaxis in the past. He is on Eliquis for atrial fibrillation. EKGs in the office showing atrial fibrillation 79 beats per minute and inferior infarct. [facility] Medical History (Updated 11/14/24 @ 12:16 by DORY JacintoC) Paroxysmal atrial fibrillation Coronary artery disease Aortic stenosis Atrial fibrillation, new onset Hypoxia Pulmonary nodules Chronic restrictive lung disease Chronic respiratory failure Pulmonary fibrosis Asbestosis Surgical History History of open heart surgery Family History Mother Ovarian cancer Father Heart attack Brother Heart attack Sister Diabetes Social History Alcohol intake: former Year quit: 1989 Patient Tobacco Use Status: Former Tobacco user Tobacco use type: Cigarette Years Smoked: 8 Years service: Yes Review of Systems Const Denies chills, Denies fatigue, Denies fever(s), Denies frequent falls, Denies weakness, Denies weight gain and Denies weight loss ENT Denies dizziness Card Denies chest pain, Denies leg edema, Denies lightheadedness, Denies palpitations, Denies dyspnea and Denies dyspnea on exertion Resp Denies cough, Denies dyspnea and Denies dyspnea on exertion GI Denies hematochezia Musc Denies abnormal gait, Denies muscle weakness, Denies numbness, Denies radiating pain into limb and Denies tingling Neuro Denies abnormal gait, Denies dizziness, Denies frequent falls, Denies numbness, Denies tingling and Denies weakness Endo Denies fatigue and Denies palpitations Physical Exam Vital Signs: Last Vital Signs Pulse 79 12/09/24 10:15 BP 110/70 12/09/24 10:15 BMI result Body Mass Index 31.1 GENERAL APPEARANCE: in no acute distress, pleasant. NECK: no carotid bruit, no jugular venous distention. SKIN: no suspicious lesions, warm and dry. HEART: Ejection systolic murmur aortic area with absent 2nd heart sound, irregular rate and rhythm. LUNGS: Crackles at bases. ABDOMEN: soft, nontender. EXTREMITIES: no edema. PERIPHERAL PULSES: equal. NEUROLOGIC: No gross deficits, AAO X 3 Office Procedures EKG Details: Atrial fibrillation 79 beats per, normal axis, inferior infarct, QTC 438 milliseconds. [id number], Complete Results Reviewed Results Reviewed: Transthoracic Echocardiogram Patient (Last, First, Middle): Dave Tran D Gender: Male Date of : 1945 Age: 79 Procedure Date: 10/16/2024 Procedure Type: Transthoracic Echocardiogram Location: ER Height: 177.8 cm Weight: 101.61 kg BSA: 2.19 m2 Heart Rate: 63 bpm BP: 97 / 60 mmHg Angiography Nurse: MICHAEL Referring MD: Crispin Villafana MD Marketing Programs Specialist: Charles Marino MD Symptoms: Severe Study Quality: Fair ECG Rhythm: Sinus Conclusions: - 1. Low normal LV ejection fraction 50-55% with mild LVH with elevated filling pressures 2. At least moderately dilated left atrium 3. Moderately severe aortic stenosis, paradoxical low-flow based on gradients obtained today, could be underestimated 4. Normal RV systolic pressure 5. Mildly dilated ascending aorta with moderate atherosclerotic changes Findings Left Ventricle Normal left ventricular cavity size. There is mildly increased left ventricular wall thickness. The left ventricular systolic function is low normal. The visually estimated ejection fraction is between 50-55%. Spectral Doppler is indicative of an impaired relaxation filling pattern. Elevated filling pressures. E/E prime ratio is >15, consistent with elevated filling pressures. Right Ventricle Normal right ventricular cavity size. There is low normal right ventricular systolic function. Atria The left atrium is moderately dilated. Interatrial shunt cannot be excluded. The right atrium is likely dilated. Aortic Valve There is moderate calcification of the aortic valve. There is moderate thickening of the aortic valve. There is moderate to severe aortic valve stenosis. the aortic stenosis by criteria appears to be moderately severe with mean gradient of 19 mm Hg compared to prior echocardiogram mean gradient of 24 mm Hg this is lower. Could be underestimated. Clinical correlation suggested Mitral Valve There is mild anterior and moderate posterior mitral leaflet thickening. There is mild mitral annular calcification. There is trace mitral valve regurgitation. There is no mitral valve stenosis. Pulmonic Valve The pulmonic valve was not well visualized. Tricuspid Valve Likely normal tricuspid valve structure and function. There is trace tricuspid valve regurgitation. The right ventricular systolic pressure is normal. The right ventricular systolic pressure is 14 mmHg. Normal right atrial pressure. There is no evidence of pulmonary hypertension. Great Vessels The pulmonary artery was not well visualized. There is mild dilatation of the ascending aorta. Moderate plaque is seen in the sino tubular ridge. Venous The inferior vena cava is normal in size and collapses greater than 50% with inspiration. Pericardium/Pleural There is no evidence of pericardial effusion. Prior Study Comparison Changes noted compared to prior study dated: 01/22/2024. aortic stenosis does not appear to be severe on this study, aortic valve gradients could be underestimated Measurements 2D Linear Measurements IVSd: 1.26 0.6-0.9/0.6-1.0 cm LVIDd: 4.00 3.9-5.3/4.2-5.9 cm LVIDd Index: 1.83 2.4-3.2/2.2-3.1 cm/m2 LVIDs: 2.81 2.0-3.6 cm LVPWd: 1.22 0.7-1.1 cm LA Diam: 3.90 2.7-3.8/3.0-4.0 cm LAIDs Index: 1.78 1.5-2.3 cm/m2 LV Mass: 216.42 67-162/88-224 g LV Mass Index: 98.82 43-95/49-115 g/m2 LVOT Diam: 1.90 3.0+(-)1.3 cm 2D Systolic Function EF 4C: 62.10 >55% EF 2C: 30.70 >55% EF BiP: 50.30 >55% Mitral Valve MV VTI: 0.39 MV Pk Clayton: 0.99 MV Mn Clayton: 0.58 MV Pk Grad: 4.00 MV Mn Grad: 2.00 MV Pk E: 0.93 MV PK A: 0.96 MV Decel Time: 345.00 E/A: 1.00 E'Lateral: 5.33 E'Medial: 4.57 E/E' Med: 20.40 E/E' Lat: 17.50 PHT: 101.00 MVA PHT: 2.18 MVA Continuity: 1.53 Decel [place]: 2.71 Aortic Valve AoV Pk Clayton: 2.85 AoV Mn Clayton: 1.99 AoV VTI: 0.65 AoV Pk Grad: 32.00 Aov Mn Grad: 19.00 MISTY Cont.VTI: 0.72 LVOT LVOT Pk Clayton: 0.72 LVOT Mn Clayton: 0.47 LVOT VTI: 0.21 LVOT Pk Grad: 2.00 LVOT Mn Grad: 1.00 LVOT Diam: 1.90 LVOT Area: 2.84 Diastolic Function MV Pk E: 0.93 MV Pk A: 0.96 E/A: 1.00 E'Medial: 4.57 E/E' Med: 20.40 E' Laterial: 5.33 E/E' Lat: 17.50 Right Ventricle TAPSE (mm): 20.90 Tricuspid Valve TR Pk Clayton: 1.63 TR Pk Grad: 11.00 RA Press: 3.00 RVSP: 14.00 Great Vessels Aorta Sinus of Valsalva: 3.10 2.0-3.5 cm Ao Asc: 3.70 2.1-3.4 cm Pulmonary Valve PV Pk Clayton: 0.88 Peak PV Grad: 3.00 Updated in Other Vendor System with Status of Final Charles Marino MD electronically signed on 10/16/2024 4:28:57 PM with status of Final Signed By: <Electronically signed by Charles Marino MD in OV> 10/16/24 [id number] Assessment & Plan Assessment & Plan (1) Aortic stenosis, severe: Code(s): I35.0 - Nonrheumatic aortic (valve) stenosis Category: Medical (2) Paroxysmal atrial fibrillation: Code(s): I48.0 - Paroxysmal atrial fibrillation Category: Medical Plan Pleasant 79 year gentleman who is here for discussion about transcatheter aortic valve replacement. He has background history of diabetes, pulmonary asbestosis/COPD on oxygen and previous coronary artery bypass surgery with BAXTER to LAD, graft to ramus, LPDA and diagonal. He has left dominant system. His recent cardiac catheterization has shown patent grafts with severe distal left main stenosis. He has known dyspnea on exertion due to pulmonary disease but more recently there has been progression in shortness of breath and fatigue. He also has developed atrial fibrillation and has been in and out of atrial fibrillation. I will arrange a 7 day Holter monitor for assessment of his rate control. He is on Eliquis and metoprolol currently and heart rate is well controlled. By echocardiography and invasive assessment-he has evidence of severe aortic valve stenosis. He also has been progressively more symptomatic. We discussed about options including medical management, surgical aortic valve replacement and transcatheter aortic valve replacement. I have explained to him the pros and cons of all options. I have explained to the patient and his about potential complications of TAVR including vascular injury, stroke, bleeding, and permanent pacemaker placement. After discussion the patient has decided to proceed with transcatheter aortic valve replacement. We will do further workup and we will arrange a TAVR protocol CT and he will see Cardiothoracic surgery in consultation. We will discuss the case in heart team meeting. Thank you for allowing me to participate in the care of your patient. Please feel free to contact me if you have any questions. Orders: Orders ECG 7 day holter monitor Today I48.0 - Paroxysmal atrial fibrillation Coding Level of Care Code Est Pt Level 5 (21599) Diagnoses Aortic stenosis, severe I35.0 Paroxysmal atrial fibrillation I48.0 CPT Codes EKG - CPT: [id number], Complete ([id number])
[2024-12-09 10:15] VITALS: BP 110/70; PULSE 79; BMI 31.1
== END 2024-12-09 11:12 | disposition home or self-care (01) ==
PROVIDERS: PCP Family Medicine; Visit Provider Internal Medicine Cardiovascular Disease
DX: I35.0 Nonrheumatic aortic (valve) stenosis (principal); I48.0 Paroxysmal atrial fibrillation
CPT/HCPCS: 93010; 99214

== ENCOUNTER → 2024-12-09 09:51 | Outpatient (BNVA) | payer MEDICARE, OTHER, SELFPAY | PROVIDERS: PCP Family Medicine; Visit Provider Internal Medicine Cardiovascular Disease | DX: I35.0 Nonrheumatic aortic (valve) stenosis (principal); I48.0 Paroxysmal atrial fibrillation; R94.31 Abnormal electrocardiogram [ECG] [EKG] | CPT/HCPCS: 93005; 99212 ==

== ENCOUNTER → 2024-12-16 11:29 | Outpatient (REF) | payer MEDICARE, OTHER, SELFPAY | LOC: HO.CARD 11:29 | PROVIDERS: PCP Family Medicine; Visit Provider Nurse Practitioner Family | DX: I48.0 Paroxysmal atrial fibrillation (principal) | CPT/HCPCS: 93242 ==

== ENCOUNTER → 2024-12-16 11:35 | Outpatient (BNV) | payer MEDICARE, OTHER, SELFPAY | PROVIDERS: PCP Family Medicine; Visit Provider Internal Medicine | DX: I48.91 Unspecified atrial fibrillation (principal) | CPT/HCPCS: 93244 ==

== ENCOUNTER → 2025-01-07 23:59 | Outpatient (BNV) | payer MEDICARE, OTHER, SELFPAY | PROVIDERS: PCP Family Medicine; Visit Provider Internal Medicine Cardiovascular Disease | DX: I35.0 Nonrheumatic aortic (valve) stenosis (principal); Z00.6 Encounter for examination for normal comparison and control in clinical research program; I48.0 Paroxysmal atrial fibrillation; I10 Essential (primary) hypertension; Z95.1 Presence of aortocoronary bypass graft | CPT/HCPCS: 33361; 99152 ==

== ENCOUNTER 2025-01-28 08:45 | Outpatient (REF) | payer MEDICARE, OTHER, SELFPAY ==
[2025-01-28 10:42] LABS: MANUAL DIFF FLAG NO
[2025-01-28 11:50] LABS: Basophils Percent Auto 0.2 % (0-2); Eosinophils Absolute Auto 0.2 X10*3/uL (0.0-0.4); Eosinophils Percent Auto 2.5 % (0-4); Hematocrit 37.8 % (42.0-52.0); Hemoglobin 12.4 g/dl (14.0-18.0); Imm Gran Abs Auto 0.03 X10*3/uL (0.00-0.03); Imm Gran Pct Auto 0.3 % (0.0-0.4); Lymphocytes Absolute Auto 0.9 X10*3/uL (1.2-4.9); Mean Corpuscular HGB Conc 32.8 g/dl (31.0-36.0); Mean Corpuscular Hemoglobin 31.6 pg (27.0-33.0); Mean Corpuscular Volume 96.2 fL (80.0-98.0); Mean Platelet Volume 10.6 fL (9.4-12.4); Monocytes Absolute Auto 0.6 X10*3/uL (0.1-1.2); Monocytes Percent Auto 6.9 % (2-11); Neutrophils Absolute Auto 6.9 x10*3/uL (2.0-8.3); Neutrophils Percent Auto 80.1 % (45-73); Platelet Count 150 X10*3/uL (160-400); Red Blood Count 3.93 X10*6/uL (4.60-5.80); White Blood Count 8.7 X10*3/uL (4.8-10.8)
[2025-01-28 12:12] LABS: B Type Natriuretic Peptide 383 pg/mL (<100)
[2025-01-28 12:42] LABS: Alanine Aminotransferase 25 U/L (0-40); Albumin Level 3.6 g/dL (3.5-5.0); Alkaline Phosphatase 73 U/L (39-117); Anion Gap 14 (12-20); Aspartate Amino Transferase 28 U/L (5-37); Bilirubin Total 0.7 mg/dL (0.0-1.0); Blood Urea Nitrogen 44 mg/dL (9-16); Calcium 9.4 mg/dL (8.4-10.2); Carbon Dioxide 29 mmol/L (22-29); Chloride 105 mmol/L (96-108); Estimated Glomerular Filt Rate 37; Glucose Random 167 mg/dL (60-115); Potassium 3.9 mmol/L (3.3-5.1); Sodium 144 mmol/L (135-145)
== END 2025-01-28 08:46 | disposition home or self-care (01) ==
LOC: HO.LAB 08:45
PROVIDERS: PCP Family Medicine; Visit Provider Nurse Practitioner Family
DX: Z95.2 Presence of prosthetic heart valve (principal); I35.0 Nonrheumatic aortic (valve) stenosis; I48.0 Paroxysmal atrial fibrillation; I25.10 Atherosclerotic heart disease of native coronary artery without angina pectoris; I10 Essential (primary) hypertension; E78.5 Hyperlipidemia, unspecified; Z79.01 Long term (current) use of anticoagulants; Z79.899 Other long term (current) drug therapy; Z95.1 Presence of aortocoronary bypass graft
CPT/HCPCS: 36415; 80053; 83880; 85025; 93005; 99212

== ENCOUNTER 2025-01-28 08:45 | Outpatient (AMB) | payer MEDICARE, OTHER, SELFPAY ==
[2025-01-28 09:22] VITALS: BP 130/62; PULSE 96; BMI 30.7
--- NOTE | 2025-01-28 09:22 | A.OFFVIS_ITS ---
Vital Signs 01/28/25 09:22 Height 5 ft 10 in Weight 214 lb 4.629 oz BMI 30.7 BP 130/62 Blood Pressure Location Lt brachial Position Sitting Pulse 96 Pulse Source Pulse Oximeter Intake Visit Reasons: S/p-TAVR f/up Discharge Door Operator Required: No Allergies No Known Allergies [No Known Allergies*] Allergy (Verified 01/28/25 09:24) Medication List - Last Reconciled 01/28/25 by Hawa Chaudhary NP-C apixaban (Eliquis) 2.5 mg PO BID atorvastatin 80 mg PO DAILY bupropion HCl SR 150 mg PO DAILY famotidine 20 mg PO DAILY insulin glargine (Lantus U-100 Insulin) 30 units subcut BEDTIME metoprolol tartrate 12.5 mg PO BID nebulizers As directed Oxygen Home Use As directed sertraline 200 mg PO DAILY torsemide 20 mg PO DAILY HPI HPI S/p-TAVR f/up: Details: Dave is an 79-year-old male past medical history of hypertension, hyperlipidemia, diabetes, coronary artery disease status post 4 vessel coronary artery bypass grafting 2018, newer finding of AFib, severe aortic stenosis who recently underwent TAVR and now presents for follow-up. Today he reports that he is not feeling any different post TAVR. He expected to feel much better and he is not. He continues to have chronic shortness of breath with activity which is likely related to his asbestosis. He is wearing oxygen with nasal cannula. He is not noticing heart palpitations and no chest discomfort. Mild lightheaded at times, no presyncope, syncope, falls. He is having increasing amounts of edema in his lower extremities. It is currently up to the level of his posterior thighs. No bleeding issues reported. Taking all meds as directed. is present. [facility] Medical History Paroxysmal atrial fibrillation Coronary artery disease Aortic stenosis Atrial fibrillation, new onset Hypoxia Pulmonary nodules Chronic restrictive lung disease Chronic respiratory failure Pulmonary fibrosis Asbestosis Surgical History History of open heart surgery Family History Mother Ovarian cancer Father Heart attack Brother Heart attack Sister Diabetes Social History Alcohol intake: former Year quit: 1989 Patient Tobacco Use Status: Former Tobacco user Tobacco use type: Cigarette Years Smoked: 8 Years service: Yes Review of Systems Const All systems reviewed & are unremarkable except as noted in HPI and below Reports fatigue ENT Reports dizziness Card Denies chest pain, Denies chest pain at rest, Denies chest pain with activity, Denies rapid heart rate, Reports pedal edema, Reports leg edema, Denies lightheadedness, Denies palpitations, Reports dyspnea, Reports dyspnea on exertion and Reports orthopnea Resp Denies cough, Reports dyspnea and Reports dyspnea on exertion GI Denies hematochezia and Denies change in stool character Musc Denies abnormal gait, Denies limited range of motion, Denies muscle cramps, Reports muscle weakness, Denies numbness, Denies radiating pain into limb, Denies stiffness and Denies tingling Neuro Denies abnormal gait, Reports dizziness, Denies numbness and Denies tingling Endo Reports fatigue and Denies palpitations Physical Exam Vital Signs: Last Vital Signs Pulse 96 01/28/25 09:22 BP 130/62 01/28/25 09:22 BMI result Body Mass Index 30.7 Const General: cooperative and no acute distress Orientation/consciousness: patient oriented x3 Neck Neck: Yes normal visual inspection Resp Other: noted to be mildly sob with walking - wearing O2 with nasal cannula Effort & Inspection: normal respiratory effort Auscultation: clear to auscultation bilaterally, rales (left base), no rhonchi and no wheezes Cardio Jugular venous distension: no JVD Rhythm: abnormal rhythm Heart sounds: S1 normal heart sound present, S2 normal heart sound present, no murmurs and no rubs GI Inspection: Yes normal to inspection Neuro General: patient oriented x3 Extrem Other: Pitting edema bilateral lower leg, up to level of posterior upper thighs, compression socks being worn Psych Appearance: grossly normal Mental Status: mental status grossly normal Speech and movement: Normal speech and movement present Office Procedures EKG Details: Today, read by me, atrial fibrillation, nonspecific T wave abn, Qtc 469ms, rate 92 [id number], Complete Assessment & Plan Assessment & Plan (1) Aortic stenosis, severe: Code(s): I35.0 - Nonrheumatic aortic (valve) stenosis Category: Medical Plan: Known history of aortic stenosis. Last echo 10/16/2024 showed moderately severe, low-flow, low gradient aortic stenosis. He underwent cardiac catheterization on 11/28/2024 showing significant [place] vessel disease and patent grafts, low-flow low gradient severe aortic stenosis. He underwent TAVR procedure at [facility] on 01/07/2025 and was discharged the following day. He currently reports no change in symptoms postprocedure however he is having increasing leg edema. Will check labs today including CMP, BNP and CBC. No med changes made at this time. Will review with his primary collar baster jumpbasting Dr. Hutson. Cardiology follow-up in office 4-6 weeks, sooner if needed. (2) S/P TAVR (transcatheter aortic valve replacement): Comment: TAVR 01/07/2025 Code(s): Z95.2 - Presence of prosthetic heart valve Category: Surgical (3) Paroxysmal atrial fibrillation: Code(s): I48.0 - Paroxysmal atrial fibrillation Category: Medical Plan: Newer finding of atrial fibrillation. Initially it was paroxysmal however now seems to be persistent. Holter monitor done 12/16/2024 showed atrial fibrillation with burden 100%, average rate 74 beats per minute. He was con tinued on metoprolol. EKG done today is showing atrial fibrillation, nonspecific T-wave abnormality, rate 92. He is not noticing heart palpitations but does continue to have shortness of breath. Checking labs as above. Continue metoprolol at current dose. Continue Eliquis for anticoagulation. (4) Coronary artery disease: Code(s): I25.10 - Atherosclerotic heart disease of [place] coronary artery without angina pectoris Category: Medical Plan: History of CAD, prior 4 vessel Coronary artery bypass grafting 2019. No chest discomfort, chronic shortness of breath. He is not on aspirin as he is now on Eliquis. He is on high-dose atorvastatin and metoprolol. (5) Hypertension: Comment: Stable Code(s): I10 - Essential (primary) hypertension Category: Medical Plan: Controlled at this time. No med changes made (6) Hx of CABG: Comment: 2019 BAXTER to LAD, GSV to the diagonal, radial artery to the ramus intermedius, GSV to the posterior descending branch of left circumflex. He is right coronary nondominant Code(s): Z95.1 - Presence of aortocoronary bypass graft Category: Surgical Plan: As above (7) Hospital discharge follow-up: Code(s): Z09 - Encounter for follow-up examination after completed treatment for conditions other than malignant neoplasm Category: Medical Plan: As above Plan Time spent on chart review, documentation, interview and assessment Orders: Orders Comprehensive Met. Panel Today Z95.2 - Presence of prosthetic heart valve Complete Blood Count Auto Diff Today Z95.2 - Presence of prosthetic heart valve B Type Natriuretic Peptide Today Z95.2 - Presence of prosthetic heart valve Coding Level of Care Code Est Pt Level 4 (53509) Complex EM visit Add On G2211 Diagnoses Aortic stenosis, severe I35.0 S/P TAVR (transcatheter aortic valve replacement) Z95.2 Paroxysmal atrial fibrillation I48.0 Coronary artery disease I25.10 Hypertension I10 Hx of CABG Z95.1 Hospital discharge follow-up Z09 CPT Codes EKG - CPT: [id number], Complete ([id number])
--- OUTSIDE RECORDS SUMMARY | 2025-01-28 09:22 | XMS_ITS | Encounter Summary ---
Author Name [facility] [facility] [facility] [place] Address [address] [place] [id number] Care Team Providers Care Primary Montessori Teacher Name Role Phone JUANITA BIRCH Primary Care [...] Bradford's Name Patient's Relationship to Policy Bradford [facility] MEDICARE SUPPLEMEN HANS MA IND Nov 06, 2016 MEDICAR E SUPPLEM E [id number] Rao ODELL PATIENT MEDICARE (WNR) MEDICARE (M) PART A May 06, 2008 PART A [id number] [facility] Rao ODELL PATIENT MEDICARE (WNR) MEDICARE (M) PART B May 06, 2008 PART B [id number] [facility] [id number] Rao ODELL PATIENT MEDICARE (WNR) MEDICARE (M) PART A May 06, 2008 PART A [id number] Rao ODELL PATIENT MEDICARE (WNR) MEDICARE (M) PART B May 06, 2008 PART B [id number] [phone] Rao ODELL PATIENT Selected Encounter This section includes the information on record at [place] for the Encounter. Date/Time Encounter Type Encounter Description Reason Provider Source Mar 04, 2024 09:00 AM MTMS BY PHARM JB 15 MIN CLINICAL PHARMACY ICD-10-CM E11.65 Type 2 diabetes mellitus with hyperglycemia ELVIA WONG Darrel Encounter Template Text not used by [place] Assessments - Encounter Diagnoses This section includes the primary and secondary diagnoses documented for the Encounter. Date/Time Primary/Secondary Diagnosis Diagnosis Name Provider Source Mar 04, 2024 09:23 AM PRIMARY Type 2 diabetes mellitus with hyperglycemia ELVIA WONG [place] Plan of Treatment: Future Appointments (+ 6 months) and Future Tests (+/- 45 days) The Plan of Treatment section includes future care activities for the patient from all [place] [facility]. This section includes future appointments and future orders which are active, pending or scheduled. Future Appointments This section includes appointments that were scheduled to occur 6 months from the date of the Encounter, up to a maximum of 20 appointments. The data comes from all [place] treatment facilities. Appointment Date/Time Appointment Type Appointme nt Facility Name Apr 15, 2024 09:00 AM [facility] Sep 03, 2024 10:00 AM [facility] MEDICINE [facility] Active, Pending, and Scheduled Orders This section includes a listing of several types of active, pending, and scheduled orders, including clinic medications orders, diagnostic test orders, procedure orders and consult orders; where the start date of the order is 45 days before the date of the Encounter or 45 days after the date of theEncounter. The data comes from all [place] treatment facilities. Test Date/Time Test Type Test Details Facility Name Mar 04, 2024 12:00 AM Laboratory - Chemistry Order HEMOGLOBIN A1C PANEL BLOOD (LAV-BLOOD) [facility] Mar 04, 2024 12:00 AM Laboratory - Chemistry Order CREATININE (eGFR 2020) BLOOD (SST-SERUM) [facility] Social History: Smoking Status (Most current) and Tobacco Use (All prior to encounter date) This section includes the most current, and the historical, smoking and tobacco- related health factors from the [place] facility where the Encounter took place. Current Smoking Status This section includes the most current smoking, or tobacco-related health factor, from the [place] facility where the Encounter took place. Date/Time Current Smoking Status Comment Facil ity Sep 05, 2023 10:00 AM VA-TOBACCO FORMER USER [place] Tobacco Use History This section includes a history of the smoking, or tobacco-related health factors, that were collected on or before the date of the Encounter. The data comes from the [place] facility where the Encounter took place. Date/Time Smoking Status/Tobacco Use Comment Linda carranza Sep 05, 2023 10:00 AM VA-TOBACCO NEVER USED [place] Sep 05, 2023 10:00 AM VA-TOBACCO QUIT 15 YRS OR MORE [place] Sep 08, 2022 11:30 AM VA-TOBACCO FORMER USER [place] Sep 08, 2022 11:30 AM VA-TOBACCO QUIT 15 YRS OR MORE [place] Jul 08, 2021 09:30 AM VA-TOBACCO FORMER USER [place] Jul 08, 2021 09:30 AM VA-TOBACCO QUIT 15 YRS OR MORE [place] May 28, 2020 10:04 AM VA-TOBACCO NEVER USED [place] May 29, 2018 09:51 AM VA-TOBACCO FORMER USER [place] May 29, 2018 09:51 AM VA-TOBACCO QUIT 15 YRS OR MORE [place] May 29, 2018 09:39 AM LIFETIME NON-TOBACCO USER [place] May 04, 2017 02:38 PM QUIT TOBACCO USE > 7 YEARS AGO [place] Apr 28, 2016 10:02 AM QUIT TOBACCO USE > 7 YEARS AGO smoked for 4 years about 2 pack a week quit 50 years ago [place] Aug 20, 2013 09:48 AM QUIT TOBACCO USE > 7 YEARS AGO 22 yo [place] Encounter Notes: All associated encounter notes This [...] ODELL presented for diabetes management treatment. Subjective: Warrior referred to pharmacy PACT clinic by PCP [...] of Preventive Care: Most recent visit to planer operator / grader: none; counseled Most recent visit to optometry: [...] Pharmacy Practitioner Signed: 04/05/2024 13:56 ELVIA WONG [place]
--- OUTSIDE RECORDS SUMMARY | 2025-01-28 09:22 | XMS_ITS ---
Author Name [facility] Organization [facility] [place] Address [address] [place] [address] Care Team Providers Care Service Delivery Director Name Role Phone JUANITA BIRCH Primary [...] Nov 06, 2016 MEDICAR E SUPPLEM E [id number] FRANCISRao MARQUES PATIENT MEDICARE (WNR) MEDICARE (M) PART B May 06, 2008 PART B [id number] [facility] Rao ODELL PATIENT MEDICARE (WNR) MEDICARE (M) PART A May 06, 2008 PART A [id number] Rao ODELL PATIENT MEDICARE (WNR) MEDICARE (M) PART A May 06, 2008 PART A [id number] Rao ODELL PATIENT MEDICARE (WNR) MEDICARE (M) PART B May 06, 2008 PART B [id number] LAFFERRao Estrella PATIENT Selected Encounter This [...] data comes from all [place] treatment facilities. Test Date/Time Test Type Test Details Facility Name Mar 04, 2024 12:00 AM Laboratory - Chemistry Order HEMOGLOBIN A1C PANEL BLOOD (LAV-BLOOD) [facility] Mar 04, 2024 12:00 AM Laboratory - Chemistry Order CREATININE (eGFR 2020) BLOOD (SST-SERUM) [facility] Encounter Notes: All associated encounter notes This section contains the clinical notes associated to the Encounter. Date/Time Encounter Note(s) Provider Source April 04, 2024 01:28 PM PHARMACY NOTE: LOCAL TITLE: V1 PHARMACY CUSTOMER CARE MEDICATION RENEWAL STANDARD TITLE: PHARMACY NOTE DATE OF NOTE: APRIL 04, 2024@13:28 ENTRY DATE: APRIL 04, 2024@13:28:20 AUTHOR: NATALIIA PEREIRA COSIGNER: URGENCY: STATUS: COMPLETED Date: March Division: [facility] referred by Pharmacy Call Center for medication renewal: Non-controlled/maintena nce medication Medications requested: [id number] NEEDLE,PEN 31G,8MM Defer to primary care provider To be mailed . Please review and renew if appropriate. *This note was generated by [facility] Pharmacy Customer Care. If you have any questions or need assistance, do not contact this author. Please refer all questions to your local, on-site pharmacy departments. /celina/ NATALIIA PEREIRA CPhT Portable Track Crew Chief, [place]/Pharmacy Customer Care Signed: 04/04/2024 13:28 Receipt Acknowledged By: 04/04/2024 14:16 /celina/ Ophelia Sheldon RN Registered Nurse (RN) 04/04/2024 13:30 /celina/ JUANITA BIRCH PA-C STAFF PHYSICIAN PATIENT REGISTRATION CLERK NATALIIA PEREIRA [place] [facility]
--- OUTSIDE RECORDS SUMMARY | 2025-01-28 09:22 | XMS_ITS | Continuity of Care Document ---
Author Name [facility] Organization [facility] Care Team Providers Care Shale Miner Name Role Phone [facility] Unavailable Unavailable Problems Combined list of problems from 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 It does not include entries that were removed or entered in error. Problem Status Onset Date Problem Type Date of Resolution Comments Source Anxiety Active Condition [place] Asbestosis Active Condition May 29, 018 Entered By: JUANITA BIRCH Comment: Dx NOV 2012 via Private PULMO: CXR, CT Thorax Done 2012 Entered By: JUANITA BIRCH Comment: Dx NOV [address] [facility] Entered By: JUANITA BIRCH Comment: early scarring note but appeared not to beOct 2012 Entered By: JUANITA BIRCH Comment: progressive in nature back 2012 Entered By: JUANITA BIRCH Comment: Lung Bx done Via Cardi-Thoracic Surg [facility] (Dr Smith)Aug 20, 2013 Entered By: JUANITA BIRCH Comment: return [facility] DEC [facility]; doing PULMO Rehab at [facility] Aug Entered By: JUANITA BIRCH Comment: Attributable to Svc [place] 1960'sOct 2012 Entered By: JUANITA BIRCH Comment: no Lung CA as of Aug Entered By: JUANITA BIRCH Comment: Next Pulmo Eval NOV 29 [place] Atrial fibrillation Active Condition Dec 18, 2024 Entered By: JUANITA BIRCH Comment: Seems To Be New Dx in DEC 31 per His Private Cardio;Dec 18, 2024 Entered By: JUANITA BIRCH Comment: DOAG [facility]ed [facility] DEC 31 [place] Benign hypertension Active Condition [facility] Benign prostatic hyperplasia Active Condition Aug 20, 2013 Entered By: JUANITA BIRCH Comment: TURP NOV 2012; no Prostate CA [place] Cataract Active Condition Aug 20 Entered By: JUANITA BIRCH Comment: Surg OU 2012 [place] Chronic kidney disease stage 3 Active Condition Sep 03, 2024 Entered By: JUANITA BIRCH Comment: eGFR 31 in Aug Entered By: JUANITA BIRCH Comment: Diabetic Nephropathy [place] Coronary artery disease Active Condition Oct 09, 2019 Entered By: JUANITA BIRCH Comment: CABG (3 vessel by-pass) ) [facility] AUG 24De2018 Entered By: JUANITA BIRCH Comment: S&S Suspicious for ACS During Course of Pulmo Eval for Asbestosis [place] Diabetes mellitus Active Condition 2019 Entered By: JUANITA BIRCH Comment: no DR as of NOV 25 [place] Exposure to potentially hazardous substance Active Condition Sep 05, 2023 Entered By: JUANITA BIRCH Comment: Asbestosis [place] Heart murmur Active Condition Apr 28, 2016 Entered By: JUANITA BIRCH Comment: Functional ?; no x [place] History of colonoscopy Active Condition Aug 20, 2013 Entered By: JUANITA BIRCH Comment: Last Colonoscopy 2011; no CRC or PolypsAug 20, 2013 Entered By: JUANITA BIRCH Comment: done [facility]; repeat 2018 Entered By: JUANITA BIRCH Comment: Last Colonoscopy 2018; Neg CRC; Repeat prn x [place] Hypercholesterolemia Active Condition Aug 20, 2013 Entered By: JUANITA BIRCH Comment: cannot tolerate Statin's; on Zetia [place] Indigestion Active Condition [place] Long-term current use of anticoagulant Active Condition [facility] (6[facility]GE) Peripheral vascular disease Active Condition Sep 08, 2022 Entered By: JUANITA BIRCH Comment: Stasis Derm Both LE's [place] Diagnosis: ICD-10-CM E11.65 Type 2 diabetes mellitus with hyperglycemia Active Diagnosis [place] Diagnosis: ICD-10-CM Z04.89 Encounter for examination and observation for oth reasons Active Diagnosis [place] Diagnosis: ICD-10-CM Z79.01 intermediate designer (current) use of anticoagulants Active Diagnosis [facility] (631GE) Diagnosis: ICD-10-CM I73.9 Peripheral vascular disease, unspecified Active Diagnosis [place] Diagnosis: ICD-10-CM N18.30 Chronic kidney disease, stage 3 unspecified Active Diagnosis [place] Medications Combined list of outpatient medications from 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Medications provided include 1) outpatient medications from the last 15 months, and 2) patient-reported medications. Medication Details Route Status Patient Instructions Prescription Expires Prescription Number Last Dispense Date Ordering Provider Order Date Order Qty Source APIXABAN 5MG TAB TAKE ONE-HALF TABLET BY MOUTH EVERY 12 HOURS ORAL ACTIVE 12/18/2025 [id number] KYRA BIRCH 2024 90 [facility] IELD APIXABAN 5MG TAB TAKE ONE-HALF TABLET BY MOUTH EVERY 12 HOURS ORAL DISCONT INUED 12/18/2025 [id number] KYRA BIRCH 2024 90 [facility] IELD ATORVASTATI N TAB TAKE LIPITOR BY MOUTH ONCE DAILY ORAL ACTIVE KYRA BIRCH 2019 [facility] IELD BUPROPION HCL 150MG 24HR TAB,SA TAKE ONE TABLET BY MOUTH ONCE DAILY ORAL ACTIVE KYRA BIRCH 2021 [facility] IEITZEL EMPAGLIFLOZ IN 10MG TAB TAKE ONE TABLET BY MOUTH ONCE DAILY ORAL DISCONT INUED BY PROVIDE R 02/05/2025 [id number] KYRA BIRCH 2023 90 [facility] IEITZEL EZETIMIBE 10MG TAB TAKE ONE TABLET BY MOUTH EVERY DAY ORAL ACTIVE KYRA BIRCH 2012 [facility] IELD FAMOTIDINE 20MG TAB TAKE ONE TABLET BY MOUTH EVERY DAY NEEDED ORAL ACTIVE KYRA BIRCH 2012 [facility] IELD FUROSEMIDE TAB TAKE LASIX BY MOUTH ONCE DAILY ORAL ACTIVE KYRA BIRCH 2019 [facility] IELD INSULIN,GLA RGINE,HUMAN 100 UNIT/ML INJ,SOLOSTA R,3ML INJECT 32 UNITS SUBCUTAN EOUSLY ONCE DAILY FOR DIABETES SUBCUT ANEOUS ACTIVE 12/31/2025 [id number] ANTHONY TEJEDA 2024 10 [place] INSULIN,GLA RGINE-YFGN 100UNIT/ML INJ PEN,3ML INJECT 30 UNITS SUBCUTAN EOUSLY EVERY EVENING FOR DIABETES SUBCUT ANEOUS DISCONT INUED BY PROVIDE R 10/09/2025 [id number] 4 ANTHONY TEJEDA 2023 5 [place] INSULIN,GLA RGINE-YFGN 100UNIT/ML INJ PEN,3ML INJECT 28 UNITS SUBCUTAN EOUSLY EVERY EVENING FOR DIABETES SUBCUT ANEOUS DISCONT INUED (EDIT) 12/13/2024 [id number] 4 ANTHONY TEJEDA 2023 10 [place] METOPROLOL TARTRATE 25MG TAB TAKE ONE-HALF TABLET BY MOUTH TWICE DAILY ORAL ACTIVE KYRA BIRCH 2019 [place] SEMAGLUTIDE 0.25MG/0.37 5ML INJ,SOLN,PE N,3ML INJECT 0.25MG SUBCUTAN EOUSLY ONCE A WEEK FOR TYPE 2 DIABETES MELLITUS SUBCUT ANEOUS DISCONT INUED BY PROVIDE R 04/03/2024 [id number] 4 ANTHONY TEJEDA 2023 1 [place] SERTRALINE HCL 100MG TAB TAKE TWO TABLETS BY MOUTH EVERY MORNING ORAL ACTIVE KYRA BIRCH 2012 [place] Allergies, Adverse Reactions, Alerts Combined list [...] Site Reaction Lot Number CVX Code Drug Accounts Payable Supervisor Status Comments Source INFLUENZA, UNSPECIFIED FORMULATION 2022 [...] Aug 20, 2024 02:24 PM Reporting Lab: [facility] [place] [address] [address] Performing Lab: [facility] [place] [facility] [address] [facility] [address] [place] LIVER FUNCTION ALBUMIN [MASS/VOLUM E] IN SERUM OR PLASMA 3.6 g/dL 3.5 - 5.0 09/02 Specimen Type: SERUM No comment entered. Ordering Provider: JUANITA BIRCH Report Released Date/Time: Aug 20, 2024 02:24 PM Reporting Lab: [facility] [place] [facility] [address] [facility] [address] Performing Lab: [facility] [place] [address] [address] [place] LIVER FUNCTION ALKALINE PHOSPHATASE [ENZYMATIC ACTIVITY/VO LUME] IN SERUM OR PLASMA 70 U/L 40 - 150 09/02 Specimen Type: SERUM No comment entered. Ordering Provider: JUANITA BIRCH Report Released Date/Time: Aug 20, 2024 02:24 PM Reporting Lab: [facility] [place] [facility] [address] [facility] [address] Performing Lab: [facility] [address] [place] LIVER FUNCTION ASPARTATE AMINOTRANSF ERASE [ENZYMATIC ACTIVITY/VO LUME] IN SERUM OR PLASMA 21 U/L 5 - 34 09/02 Specimen Type: SERUM No comment entered. Ordering Provider: JUANITA BIRCH Report Released Date/Time: Aug 20, 2024 02:24 PM Reporting Lab: [facility] [address] [address] Performing Lab: [facility] [address] [address] [place] LIVER FUNCTION ALANINE AMINOTRANSF ERASE [ENZYMATIC ACTIVITY/VO LUME] IN SERUM OR PLASMA 29 U/L 09/02 Specimen Type: SERUM No comment entered. Ordering Provider: JUANITA BIRCH Report Released Date/Time: Aug 20, 2024 02:24 PM Reporting Lab: [address] [address] Performing Lab: [address] [address] [place] LIVER FUNCTION BILIRUBIN.T OTAL [MASS/VOLUM E] IN SERUM OR PLASMA 0.6 mg/dL 0.2 - 1.2 09/02 Specimen Type: SERUM No comment entered. Ordering Provider: JUANITA BIRCH Report Released Date/Time: Aug 20, 2024 02:24 PM Reporting Lab: [address] [address] Performing Lab: [address] [address] [place] LIPID PANEL FASTING CHOLESTEROL [MASS/VOLUM E] IN SERUM OR PLASMA 167 mg/dL 09/02 Specimen Type: SERUM No comment entered. Ordering Provider: JUANITA BIRCH Report Released Date/Time: Aug 20, 2024 02:24 PM Reporting Lab: [facility] [address] [address] Performing Lab: [address] [address] [place] LIPID PANEL FASTING TRIGLYCERID E [MASS/VOLUM E] IN SERUM OR PLASMA 102 mg/dL 0 - 150 09/02 Specimen Type: SERUM No comment entered. Ordering Provider: JUANITA BIRCH Report Released Date/Time: Aug 20, 2024 02:24 PM Reporting Lab: [facility] [address] [facility] [address] Performing Lab: [facility] [address] [facility] [address] [place] LIPID PANEL FASTING CHOLESTEROL IN LDL [MASS/VOLUM E] IN SERUM OR PLASMA BY CALCULATION 76 mg/dL 0 - 129 09/02 Specimen Type: SERUM No comment entered. Ordering Provider: JUANITA BIRCH Report Released Date/Time: Aug 20, 2024 02:24 PM Reporting Lab: [address] [address] Performing Lab: [address] [address] [place] LIPID PANEL FASTING CHOLESTEROL .TOTAL/CHOL ESTEROL IN HDL [MASS RATIO] IN SERUM OR PLASMA 2.4 09/02 Specimen Type: SERUM No comment entered. Ordering Provider: JUANITA BIRCH Report Released Date/Time: Aug 20, 2024 02:24 PM Reporting Lab: [address] [address] Performing Lab: [address] [address] [place] LIPID PANEL FASTING CHOLESTEROL IN HDL [MASS/VOLUM E] IN SERUM OR PLASMA 71 mg/dL 40 - 60 09/02 H Specimen Type: SERUM No comment entered. Ordering Provider: JUANITA BIRCH Report Released Date/Time: Aug 20, 2024 02:24 PM Reporting Lab: [address] [address] Performing Lab: [address] [address] [place] CALCIUM CALCIUM [MASS/VOLUM E] IN SERUM OR PLASMA 9.1 mg/dL 8.5 - 10.2 09/02 Specimen Type: SERUM No comment entered. Ordering Provider: JUANITA BIRCH Report Released Date/Time: Aug 20, 2024 02:24 PM Reporting Lab: [address] [address] Performing Lab: [address] [address] [place] URIC ACID URATE [MASS/VOLUM E] IN SERUM OR PLASMA 7.9 mg/dL 3.5 - 7.2 09/02 H Specimen Type: SERUM No comment entered. Ordering Provider: JUANITA BIRCH Report Released Date/Time: Aug 20, 2024 02:24 PM Reporting Lab: [address] [address] Performing Lab: [address] [address] [place] VITAMIN D (25-OH) 25-HYDROXYV ITAMIN D3 [MASS/VOLUM E] IN SERUM OR PLASMA 45 ng/mL 20 - 50 09/02 Specimen Type: SERUM No comment entered. Ordering Provider: JUANITA BIRCH Report Released Date/Time: Aug 20, 2024 02:24 PM Reporting Lab: [address] [address] Performing Lab: [address] [address] [place] FERRITIN FERRITIN [MASS/VOLUM E] IN SERUM OR PLASMA 302 ng/mL 20 - 300 09/02 H Specimen Type: SERUM No comment entered. Ordering Provider: JUANITA BIRCH Report Released Date/Time: Aug 20, 2024 02:24 PM Reporting Lab: [address] [address] Performing Lab: [address] [address] [place] CBC AND DIFF (AUTO) LEUKOCYTES [#/VOLUME] IN BLOOD BY AUTOMATED COUNT 5.39 10*3/u L 4.50 - 11.00 09/02 Specimen Type: BLOOD No comment entered. Ordering Provider: JUANITA BIRCH Report Released Date/Time: Aug 20, 2024 02:24 PM Reporting Lab: [facility] [address] [facility] [address] Performing Lab: [facility] [address] [place] CBC AND DIFF (AUTO) ERYTHROCYTE S [#/VOLUME] IN BLOOD BY AUTOMATED COUNT 4.07 10*6/u L 4.23 - 5.66 09/02 L Specimen Type: BLOOD No comment entered. Ordering Provider: JUANITA BIRCH Report Released Date/Time: Aug 20, 2024 02:24 PM Reporting Lab: [facility] [address] [address] Performing Lab: [address] [address] [place] CBC AND DIFF (AUTO) HEMOGLOBIN [MASS/VOLUM E] IN BLOOD 12.9 g/dL 12.8 - 17 09/02 Specimen Type: BLOOD No comment entered. Ordering Provider: JUANITA BIRCH Report Released Date/Time: Aug 20, 2024 02:24 PM Reporting Lab: [facility] [address] [address] Performing Lab: [facility] [address] [place] CBC AND DIFF (AUTO) HEMATOCRIT [VOLUME FRACTION] OF BLOOD BY AUTOMATED COUNT 37.6 39.2 - 50.4 09/02 L Specimen Type: BLOOD No comment entered. Ordering Provider: JUANITA BIRCH Report Released Date/Time: Aug 20, 2024 02:24 PM Reporting Lab: [facility] [address] [address] Performing Lab: [facility] [address] [address] [place] CBC AND DIFF (AUTO) MCV [ENTITIC VOLUME] BY AUTOMATED COUNT 92.4 fL 82 - 99 09/02 Specimen Type: BLOOD No comment entered. Ordering Provider: JUANITA BIRCH Report Released Date/Time: Aug 20, 2024 02:24 PM Reporting Lab: [facility] [address] [address] Performing Lab: [facility] [place] [address] [address] [place] CBC AND DIFF (AUTO) MCHC [MASS/VOLUM E] BY AUTOMATED COUNT 34.3 g/dL 30.8 - 35.1 09/02 Specimen Type: BLOOD No comment entered. Ordering Provider: JUANITA BIRCH Report Released Date/Time: Aug 20, 2024 02:24 PM Reporting Lab: [facility] [place] [address] [address] Performing Lab: [facility] [address] [address] [place] CBC AND DIFF (AUTO) PLATELETS [#/VOLUME] IN BLOOD BY AUTOMATED COUNT 164 10*3/u L 140 - 360 09/02 Specimen Type: BLOOD No comment entered. Ordering Provider: JUANITA BIRCH Report Released Date/Time: Aug 20, 2024 02:24 PM Reporting Lab: [facility] [place] [address] [address] Performing Lab: [facility] [place] [address] [address] [place] CBC AND DIFF (AUTO) ERYTHROCYTE DISTRIBUTIO N WIDTH [RATIO] BY AUTOMATED COUNT 13.0 12.0 - 16.0 09/02 Specimen Type: BLOOD No comment entered. Ordering Provider: JUANITA BIRCH Report Released Date/Time: Aug 20, 2024 02:24 PM Reporting Lab: [facility] [place] [address] [address] Performing Lab: [facility] [place] [address] [address] [place] CBC AND DIFF (AUTO) MONOCYTES [#/VOLUME] IN BLOOD BY AUTOMATED COUNT 0.49 10*3/u L 0.30 - 1.10 09/02 Specimen Type: BLOOD No comment entered. Ordering Provider: JUANITA BIRCH Report Released Date/Time: Aug 20, 2024 02:24 PM Reporting Lab: [facility] [address] [address] Performing Lab: [facility] [place] [facility] [address] [facility] [address] [place] CBC AND DIFF (AUTO) MCH [ENTITIC MASS] BY AUTOMATED COUNT 31.7 pg 26.2 - 32.6 09/02 Specimen Type: BLOOD No comment entered. Ordering Provider: JUANITA BIRCH Report Released Date/Time: Aug 20, 2024 02:24 PM Reporting Lab: [facility] [place] [facility] [address] [facility] [address] Performing Lab: [facility] [place] [facility] [address] [facility] [address] [place] CBC AND DIFF (AUTO) NEUTROPHILS /100 LEUKOCYTES IN BLOOD BY AUTOMATED COUNT 71.1 43.7 - 75.8 09/02 Specimen Type: BLOOD No comment entered. Ordering Provider: JUANITA BIRCH Report Released Date/Time: Aug 20, 2024 02:24 PM Reporting Lab: [facility] [place] [address] [address] Performing Lab: [facility] [place] [address] [address] [place] CBC AND DIFF (AUTO) LYMPHOCYTES /100 LEUKOCYTES IN BLOOD BY AUTOMATED COUNT 16.1 14.0 - 42.3 09/02 Specimen Type: BLOOD No comment entered. Ordering Provider: JUANITA BIRCH Report Released Date/Time: Aug 20, 2024 02:24 PM Reporting Lab: [facility] [place] [address] [address] Performing Lab: [facility] [place] [address] [address] [place] CBC AND DIFF (AUTO) MONOCYTES/1 00 LEUKOCYTES IN BLOOD BY AUTOMATED COUNT 9.1 5.1 - 13.7 09/02 Specimen Type: BLOOD No comment entered. Ordering Provider: JUANITA BIRCH Report Released Date/Time: Aug 20, 2024 02:24 PM Reporting Lab: [facility] [address] [address] Performing Lab: [facility] [place] [address] [address] [place] CBC AND DIFF (AUTO) EOSINOPHILS /100 LEUKOCYTES IN BLOOD BY AUTOMATED COUNT 3.5 0.4 - 6.8 09/02 Specimen Type: BLOOD No comment entered. Ordering Provider: JUANITA BIRCH Report Released Date/Time: Aug 20, 2024 02:24 PM Reporting Lab: [facility] [address] [facility] [address] Performing Lab: [facility] [address] [facility] [address] [place] CBC AND DIFF (AUTO) BASOPHILS/1 00 LEUKOCYTES IN BLOOD BY AUTOMATED COUNT 0.0 0.1 - 2.0 09/02 L Specimen Type: BLOOD No comment entered. Ordering Provider: JUANITA BIRCH Report Released Date/Time: Aug 20, 2024 02:24 PM Reporting Lab: [facility] [place] [address] [address] Performing Lab: [facility]N [address] [address] [place] CBC AND DIFF (AUTO) NEUTROPHILS [#/VOLUME] IN BLOOD BY AUTOMATED COUNT 3.83 10*3/u L 2.20 - 7.60 09/02 Specimen Type: BLOOD No comment entered. Ordering Provider: JUANITA BIRCH Report Released Date/Time: Aug 20, 2024 02:24 PM Reporting Lab: [facility] [place] [address] [address] Performing Lab: [facility] [address] [address] [place] CBC AND DIFF (AUTO) LYMPHOCYTES [#/VOLUME] IN BLOOD BY AUTOMATED COUNT 0.87 10*3/u L 1.00 - 3.20 09/02 L Specimen Type: BLOOD No comment entered. Ordering Provider: JUANITA BIRCH Report Released Date/Time: Aug 20, 2024 02:24 PM Reporting Lab: [facility] [address] Performing Lab: [facility] [place] [address] [address] [place] CBC AND DIFF (AUTO) EOSINOPHILS [#/VOLUME] IN BLOOD BY AUTOMATED COUNT 0.19 10*3/u L 0.03 - 0.44 09/02 Specimen Type: BLOOD No comment entered. Ordering Provider: JUANITA BIRCH Report Released Date/Time: Aug 20, 2024 02:24 PM Reporting Lab: [facility] [place] [address] [address] Performing Lab: [facility] [address] [address] [place] CBC AND DIFF (AUTO) BASOPHILS [#/VOLUME] IN BLOOD BY AUTOMATED COUNT 0.00 10*3/u L 0.01 - 0.13 09/02 L Specimen Type: BLOOD No comment entered. Ordering Provider: JUANITA BIRCH Report Released Date/Time: Aug 20, 2024 02:24 PM Reporting Lab: [facility] [address] [address] Performing Lab: [facility] [place] [facility] [address] [place] CBC AND DIFF (AUTO) IMMATURE GRANULOCYTE S/100 LEUKOCYTES IN BLOOD BY AUTOMATED COUNT 0.2 0.0 - 0.7 09/02 Specimen Type: BLOOD No comment entered. Ordering Provider: JUANITA BIRCH Report Released Date/Time: Aug 20, 2024 02:24 PM Reporting Lab: [facility] [address] [address] Performing Lab: [facility] [place] [facility] [address] [place] CBC AND DIFF (AUTO) IMMATURE GRANULOCYTE S [#/VOLUME] IN BLOOD 0.01 10*3/u L 0.00 - 0.06 09/02 Specimen Type: BLOOD No comment entered. Ordering Provider: JUANITA BIRCH Report Released Date/Time: Aug 20, 2024 02:24 PM Reporting Lab: [facility] [address] [address] Performing Lab: [facility] [place] [address] [address] [place] CBC AND DIFF (AUTO) NRBC % 0.0 0.0 - 0.0 09/02 Specimen Type: BLOOD No comment entered. Ordering Provider: JUANITA BIRCH Report Released Date/Time: Aug 20, 2024 02:24 PM Reporting Lab: [address] [address] Performing Lab: [address] [address] [place] CBC AND DIFF (AUTO) NRBC, ABS 0.00 10*3/u L 0.00 - 0.00 09/02 Specimen Type: BLOOD No comment entered. Ordering Provider: JUANITA BIRCH Report Released Date/Time: Aug 20, 2024 02:24 PM Reporting Lab: [address] [address] Performing Lab: [address] [address] [place] HEMOGLOBI N A1C PANEL HEMOGLOBIN A1C/HEMOGLO BIN.TOTAL [...] Aug 20, 2024 02:24 PM Reporting Lab: [address] [address] Performing Lab: [address] [address] [place] TSH THYROTROPIN [UNITS/VOLU ME] IN SERUM OR PLASMA 4.66 u[IU]/ mL 0.35 - 5.00 09/02 Specimen Type: SERUM No comment entered. Ordering Provider: JUANITA BIRCH Report Released Date/Time: Aug 20, 2024 02:24 PM Reporting Lab: [facility] [address] [facility] [address] Performing Lab: [facility]TRN [facility] [address] [facility] [address] [place] MICROALBU MIN CREATININ E RATIO PANEL MICROALBUMI N/CREATININ E [MASS RATIO] IN URINE 9.9 mg/g 0 - 29.9 09/02 Specimen Type: URINE No comment entered. Ordering Provider: JUANITA BIRCH Report Released Date/Time: Aug 20, 2024 02:24 PM Reporting Lab: [facility] [place] [facility] [address] [facility] [address] Performing Lab: [facility] [address] [place] MICROALBU MIN CREATININ E RATIO PANEL MICROALBUMI N [MASS/VOLUM E] IN URINE 0.8 mg/dL 09/02 Specimen Type: URINE No comment entered. Ordering Provider: JUANITA BIRCH Report Released Date/Time: Aug 20, 2024 02:24 PM Reporting Lab: [facility] [address] [facility] [address] Performing Lab: [facility] [address] [facility] [address] [place] MICROALBU MIN CREATININ E RATIO PANEL CREATININE [MASS/VOLUM E] IN URINE 80.78 mg/dL 09/02 Specimen Type: URINE No comment entered. Ordering Provider: JUANITA BIRCH Report Released Date/Time: Aug 20, 2024 02:24 PM Reporting Lab: [facility] [address] [facility] [address] Performing Lab: [facility]ITAL[facility] [address] [place] Vital Signs Combined list of inpatient and outpatient Vital Signs from Department of Defense and Veterans Affairs, ranging from 12 months to all on record, depending upon the facility. Vital Sign Value Date Comments Source SYSTOLIC BLOOD PRESSURE 126 09/03/2024 10:28:15 [place] DIASTOLIC BLOOD PRESSURE 76 09/03/2024 10:28:15 [place] PULSE OXIMETRY 98 09/03/2024 10:28:15 [place] WEIGHT 236 09/03/2024 10:28:15 [place] BMI 34 kg/m2 09/03/2024 10:28:15 [place] TEMPERATURE 97.6 09/03/2024 10:28:15 [place] PULSE 79 09/03/2024 10:28:15 [place] RESPIRATION 18 09/03/2024 10:28:15 [place] Encounters Combined list of: 1) Encounters from Department of Veterans Affairs facilities going backup to the last 18 months, not all VA inpatient encounters are included; 2) Encounters from the [facility] [employer] facilities going backup to 280 months. Location Location Details Encounter Type Encounter Number Reason For Visit Attending Provider ADM Date DC Date Status Disposition Source [facility] Outpatient Encounter [id number] 08/04 [facility] Outpatient Encounter [id number] 08/06 [facility] Outpatient Encounter [id number] 08/25 [facility] Outpatient Encounter [id number] 08/29 [facility] [place] [facility] O/P EST MOD 30-39 MIN [id number] Diagnos is: ICD-10- CM N18.30 Chronic kidney disease , stage 3 unspeci [facility] MIN [id number] Diagnos is: ICD-10- CM 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 SOPHIA TEJEDA IE 11/07 [facility] QNHP OL DIG ASSMT&MGMT 5-10 [id number] Diagnos is: ICD-10- CM 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 Charlene COOK 11/08 [facility] Outpatient Encounter [id number] YOBANI BIRCH 12/11 [facility] [place] MTMS BY PHARM ADDL 15 MIN [id number] Diagnos is: ICD-10- CM 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 SOPHIA TEJEDA IE 12/12 [place] [facility] Outpatient Encounter [id number] WALDEMAR MCCALLUM 12/13 [facility] Out[facility] Encounter [id number] 01/16 [facility] Outpatient Encounter [id number] 01/16 [facility] Outpatient Encounter [id number] 01/16 [facility] Outpatient Encounter [id number] 01/21 [facility] [place] MTMS BY PHARM ADDL 15 MIN [id number] Diagnos is: ICD-10- CM 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 SOPHIA TEJEDA IE 01/29 [place] [facility] Outpatient Encounter [id number] 01/30 [facility] Out[facility] Encounter [id number] 01/30 [facility] [place] MTMS BY PHARM DIGITAL MARKETING COORDINATOR 15 MIN [id number] Diagnos is: ICD-10- CM 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 NIKHIL,SOPHIA IE 02/06 [place] MTMS BY PHARM ADDL 15 MIN [id number] Diagnos is: ICD-10- CM 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 NIKHIL,SOPHIA IE 03/04 [place] [facility] QNHP OL DIG ASSMT&MGMT 5-10 [id number] Diagnos is: ICD-10- CM 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 JANDRIS,KR ISTIE J 03/04 [facility] Outpatient Encounter [id number] 04/02 [facility] Out[facility] Encounter [id number] 04/04 [facility] Outpatient Encounter [id number] 04/05 [facility] [place] MTMS BY PHARM ADDL 15 MIN [id number] Diagnos is: ICD-10- CM 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 NIKHIL,SOPHIA IE 04/15 [place] O/P EST MOD 30 MIN [id number] Diagnos is: ICD-10- CM 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 EYAL,YOBANI N 09/03 [place] MTMS BY PHARM DIGITAL MARKETING COORDINATOR 15 MIN [id number] Diagnos is: ICD-10- CM 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 NIKHIL,SOPHIA IE 10/08 [place] [facility] Outpatient Encounter [id number] 1.10/16 [facility] Out[facility] Encounter [id number] 1.10/17 [facility] [place] MTMS BY PHARM DIGITAL MARKETING COORDINATOR 15 MIN [id number] Diagnos is: ICD-10- CM 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 NIKHIL,SOPHIA IE 10/25 [place] MTMS BY PHARM DIGITAL MARKETING COORDINATOR 15 MIN [id number] Diagnos is: ICD-10- CM 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 NIKHIL,SOPHIA IE 11/12 [place] [facility] Outpatient Encounter [id number] 1.11/28 [facility] Outpatient Encounter [id number] 1.12/13 [facility] Out[facility] Encounter [id number] 1.12/17 [facility] ([id number] MTMS BY PHARM EST 15 MIN [id number] Diagnos is: ICD-10- CM Z79.01 [facility] (curren t) use of anticoa gulants ROBI,ALB ERT ALLISON 12/17 [facility] ([id number] MICHEL ROBBINS NQHP OL DIG ASSMT&MGMT 5-10 [id number] Diagnos is: ICD-10- CM Z04.89 Encount er for examina tion and observa tion for oth reasons SOPHIA TEJEDA IE 12/18 [facility] IEITZEL ROBBINS MTMS BY PHARM DIGITAL MARKETING COORDINATOR 15 MIN [id number] Diagnos is: ICD-10- CM 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 SOPHIA TEJEDA IE 12/30 [facility] Social History Combined list of available smoking, tobacco, and other social history from 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 Social History Type Response Date Comment Sourc e Tobacco smoking status NHIS [place]-TOBACCO FORMER USER 09/03/2024 [place] History of tobacco use NM-TOBACCO QUIT 15 YRS OR MORE 09/03/2024 [place] History of tobacco use NM-TOBACCO FORMER USER 09/05/2023 [place] History of tobacco use NM-TOBACCO FORMER USER 09/08/2022 [place] History of tobacco use NM-TOBACCO FORMER USER 07/08/2021 [place] History of tobacco use NM-TOBACCO NEVER USED 05/28/2020 [facility] History of tobacco use NM-TOBACCO QUIT 15 YRS OR MORE 05/29/2018 [place] History of tobacco use LIFETIME NON-TOBACCO USER 05/29/2018 [place] History of tobacco use QUIT TOBACCO USE > 7 YEARS AGO 05/04/2017 [place] History of tobacco use QUIT TOBACCO USE > 7 YEARS AGO 04/28/2016 smoked for 4 years about 2 pack a week quit 50 years ago [place] History of tobacco use QUIT TOBACCO USE > 7 YEARS AGO 08/20/2013 22 yo [place] Plan of Care List of future care activities from Department of Veterans Affairs facilities. Additional future care activities may be listed in the Assessment and Plan section. Date/Time Care Activity Care Activity Detail Facili ty 02/10/2025 AMBULATORY - MEDICINE AMBULATORY - MEDICI [place] [facility]
--- OUTSIDE RECORDS SUMMARY | 2025-01-28 09:22 | XMS_ITS | Encounter Summary ---
Author Name [facility] [place] [facility] [facility] [place] Address [address] [place] [id number] Care Team Providers Care Nursing Unit Manager Name Role Phone JUANITA BIRCH Primary [...] Nov 06, 2016 MEDICAR E SUPPLEM [id number] Rao ODE[facility] PATIENT MEDICARE (WNR) MEDICARE (M) PART A May 06, 2008 PART A [id number] [facility] Rao ODELL PATIENT MEDICARE (WNR) MEDICARE (M) PART B May 06, 2008 PART B [id number] [facility] [id number] [place] PATIENT MEDICARE (WNR) MEDICARE (M) PART B May 06, 2008 PART B [id number] [place] [place] PATIENT MEDICARE (WNR) MEDICARE (M) PART A May 06, 2008 PART A [id number] [place] PATIENT Selected Encounter This section includes the information on record at [place] for the Encounter. Date/Time Encounter Type Encounter Description Reason Provider Source Dec 30, 2024 08:30 AM MTMS BY PHARM BOTTOM IRONER 15 MIN TELEPHONE PRIMARY CARE ICD-10-CM E11.65 Type 2 diabetes mellitus with hyperglycemia ELVIA WONG Darrel Encounter Template Text not used by [place] Assessments - Encounter Diagnoses This section includes the primary and secondary diagnoses documented for the Encounter. Date/Time Primary/Secondary Diagnosis Diagnosis Name Provider Source Dec 30, 2024 08:30 AM PRIMARY Type 2 diabetes mellitus with hyperglycemia ELVIA WONG ORIENT Plan of Treatment: Future Appointments (+ 6 months) and Future Tests (+/- 45 days) The Plan of Treatment section includes future care activities for the patient [facility] [place] [facility] This section includes future appointments and future orders which are active, pending or scheduled. Future Appointments This section includes appointments that were scheduled to occur 6 months from the date of the Encounter, up to a maximum of 20 appointments. The data comes from all [place] treatment facilities. Appointment Date/Time Appointment Type Appointme nt Facility Name Feb 10, 2025 08:30 AM AMBULATORY - MEDICINE [facility] Active, Pending, and Scheduled Orders This section includes a listing of several types of active, pending, and scheduled orders, including clinic medications orders, diagnostic test orders, procedure orders and consult orders; where the start date of the order is 45 days before the date of the Encounter or 45 days after the date of theEncounter. The data comes from all [place] treatment [facility]. Test Date/Time Test Type Test Details Facility Name Dec 17, 2024 12:00 AM Laboratory - Chemistry Order CBC AND DIFF (AUTO) BLOOD (LAV-BLOOD) [facility] Dec 17, 2024 12:00 AM Laboratory - Chemistry Order BASIC METABOLIC PANEL (non-fasting) BLOOD (SST-SERUM) [facility] Dec 17, 2024 12:00 AM Laboratory - Chemistry Order PT & INR (PROTIME) BLOOD (BLUE-PLASMA) [facility] Dec 30, 2024 12:00 AM Laboratory - Chemistry Order HEMOGLOBIN A1C PANEL BLOOD (LAV-BLOOD) [facility] Dec 30, 2024 12:00 AM Laboratory - Chemistry Order CREATININE (eGFR 2020) BLOOD (SST-SERUM) [facility] Social History: Smoking Status (Most current) and Tobacco Use (All prior to encounter date) This section includes the most current, and the historical, smoking and tobacco- related health factors from the [place] facility where the Encounter took place. Current Smoking Status This section includes the most current smoking, or tobacco-related health factor, from the [place] facility where the Encounter took place. Date/Time Current Smoking Status Comment [place] [facility] Sep 03, 2024 10:00 AM VA-TOBACCO FORMER USER ORIENT Tobacco Use History This section includes a history of the smoking, or tobacco-related health factors, that were collected on or before the date of the Encounter. The data comes from the [place] facility where the Encounter took place. Date/Time Smoking Status/Tobacco Use Comment F acility Sep 03, 2024 10:00 AM VA-TOBACCO QUIT 15 YRS OR MORE ORIENT Sep 05, 2023 10:00 AM VA-TOBACCO FORMER USER ORIENT Sep 05, 2023 10:00 AM VA-TOBACCO NEVER USED ORIENT Sep 05, 2023 10:00 AM VA-TOBACCO QUIT 15 YRS OR MORE ORIENT Sep 08, 2022 11:30 AM VA-TOBACCO FORMER USER ORIENT Sep 08, 2022 11:30 AM VA-TOBACCO QUIT 15 YRS OR MORE ORIENT Jul 08, 2021 09:30 AM VA-TOBACCO FORMER USER ORIENT Jul 08, 2021 09:30 AM VA-TOBACCO QUIT 15 YRS OR MORE ORIENT May 28, 2020 10:04 AM VA-TOBACCO NEVER USED ORIENT May 29, 2018 09:51 AM VA-TOBACCO FORMER USER ORIENT May 29, 2018 09:51 AM VA-TOBACCO QUIT 15 YRS OR MORE ORIENT May 29, 2018 09:39 AM LIFETIME NON-TOBACCO USER ORIENT May 04, 2017 02:38 PM QUIT TOBACCO USE > 7 YEARS AGO ORIENT Apr 28, 2016 10:02 AM QUIT TOBACCO USE > 7 YEARS AGO smoked for 4 years about 2 pack a week quit 50 years ago ORIENT Aug 20, 2013 09:48 AM QUIT TOBACCO USE > 7 YEARS AGO 22 yo ORIENT Encounter Notes: All associated encounter notes This section contains the clinical notes associated to the Encounter. Date/Time Encounter Note(s) Provider Source Dec 30, 2024 08:34 AM PHARMACY OUTPATIEN T NOTE: LOCAL TITLE: PHARMACY CLINIC NOTE STANDARD TITLE: PHARMACY OUTPATIENT NOTE DATE OF NOTE: DEC 30, 2024@08:34 ENTRY DATE: DEC 30, 2024@08:34:11 AUTHOR: ELVIA WONG COSIGNER: URGENCY: STATUS: COMPLETED Known Allergies: Patient has answered NKA MATHEW ODELL contacted for diabetes management treatment. Subjective: referred to [...] changes were made to DM regimen. Pt notes difficulty recently as he is waiting for cardiac procedure; difficulty with breathing until this is resolved. Notes he forgot to obtain repeat labwork, but will do so soon. Diet generally the same. Continues using Chelsie 3 without issues. Denies [...] 39% 70-180mg/dL 46% 54-69mg/dL 0% <54mg/dL 0% 12/30/24 Chelsie 3: 7 day avg. 206mg/dL 3am-6am 214 6am-9am 161 9am-12am 136 12am-3pm 197 3pm-6pm 210 6pm-9pm 231 9pm-12am 276 Low glucose events 0 Time in Target >250mg/dL 18% 181-250mg/dL 51% 70-180mg/dL 31% 54-69mg/dL 0% <54mg/dL 0% Patient eats on [...] <4% or <1% for older/high risk pts) BG trending up; slight increase to insulin with monitoring. Discussed target CHO and factors that may lead to higher BG. Consider DPP-4 inhibitor, but pt declines for now. Will plan to continue with LSMs. Repeat labwork then reassess. Pt to contact clinic if BG trending <100mg/dL or >250mg/dL. As noted previously, pt could not tolerate GLP-1 agonist and SGLT-2 inhibitor. Diabetes (Goal A1c<7%, FBG 90-110mg/dL, 2hPP<180mg/dL): - INCREASE insulin glargine 32 units daily - Continue to SMBG 6x/day with Chelsie - Monitor for s/sx hypoglycemia and contact clinic if BG consistently < 70mg/dL - LSMs encouraged - Repeat A1c: prior to f/u Clinic's Next Scheduled Follow-up: ~6 weeks (cell: [phone]) HTN: Last BP at goal; no TAMMIE-I/ARB. Defer to PCP. ASCVD: atorvastatin 80mg/day. Microalb: 13.2mg/G (05/2022) History of Preventive Care: Most recent visit to [facility] [place] manager: none; counseled Most recent visit to [...] Elvia Wong PharmD Clinical Pharmacy Practitioner Signed: 12/30/2024 08:47 ELVIA WONG
--- OUTSIDE RECORDS SUMMARY | 2025-01-28 09:22 | XMS_ITS | Encounter Summary ---
Author Name [facility] [place] Address [address] [place] [address] Care Team Providers Care Carton Stenciler Name Role Phone JUANITA BIRCH Primary Care [...] Bradford's Name Patient's Relationship to Policy Bradford [facility] MEDICARE SUPPLEMEN HANS MA IND Nov 06, 2016 MEDICAR E SUPPLEM E [id number] Rao ODELL PATIENT MEDICARE (WNR) MEDICARE (M) PART A May 06, 2008 PART A [id number] [facility] Rao ODELL PATIENT MEDICARE (WNR) MEDICARE (M) PART B May 06, 2008 PART B [id number] [facility] [id number] Rao ODELL PATIENT MEDICARE (WNR) MEDICARE (M) PART B May 06, 2008 PART B [id number] Rao ODELL PATIENT MEDICARE (WNR) MEDICARE (M) PART A May 06, 2008 PART A [id number] Rao ODELL PATIENT Selected Encounter This section includes the information on record at [place] for the Encounter. Date/Time Encounter Type Encounter Description Reason Provider Source Sep 03, 2024 10:00 AM OFFICE O/P EST MOD 30 MIN PRIMARY CARE/MEDICINE ICD-10-CM I73.9 Peripheral vascular disease, unspecified JUANITA BIRCH Encounter Template Text not used by [place] Assessments - Encounter Diagnoses This section includes the primary and secondary diagnoses documented for the Encounter. Date/Time Primary/Secondary Diagnosis Diagnosis Name Provider Source Sep 17, 2024 12:52 PM PRIMARY Peripheral vascular disease, unspecified JUANITA BIRCH Sep 17, 2024 12:52 PM SECONDARY Athscl heart disease of [place] coronary artery w/o ang pctrs JUANITA BIRCH [facility] Sep 17, 2024 12:52 PM SECONDARY Chronic kidney disease, stage 3 unspecified JUANITA BIRCH [facility] Sep 17, 2024 12:52 PM SECONDARY Type 2 diabetes mellitus with hyperglycemia JUANITA BIRCH Plan of Treatment: Future Appointments (+ 6 months) and Future Tests (+/- 45 days) The Plan of Treatment section includes future care activities for the patient from all [place] [facility]. This section includes future appointments and future orders which are active, pending or scheduled. Future Appointments This section includes appointments that were scheduled to occur 6 months from the date of the Encounter, up to a maximum of 20 appointments. The data comes from all [place] treatment facilities. Appointment Date/Time Appointment Type Appointme nt Facility Name Oct 08, 2024 03:30 PM AMBULATORY - MEDICINE [facility] [place] [facility] Oct 25, 2024 08:30 AM AMBULATORY - MEDICINE [facility] [place] [facility] Nov 12, 2024 08:30 AM AMBULATORY [place] MEDICINE [place] [facility] [place] [facility] Dec 30, 2024 08:30 AM AMBULATORY - MEDICINE [facility] [place] [facility] Feb 10, 2025 08:30 AM AMBULATORY MEDICINE [facility] Lab Results: +/- 30 days of the encounter This section includes the Chemistry and Hematology Lab Results on record with [place] for the patient. Radiology Reports and Pathology Reports are provided separately, in subsequent sections. Lab Results This section contains the Chemistry/Hematology Results that were resulted 30 days before or 30 daysafter the date of the Encounter. Date/Time Source Result Type Result - Unit Interpretation Reference Range Comment Sep 02, 2024 09:36 AM [facility] LIVER FUNCTION Specimen Type: SERUM No comment entered. Ordering Provider: JUANITA BIRCH Report Released Date/Time: Aug 20, 2024 02:24 PM Reporting [facility]: [facility] [address] [address] Performing Lab: [facility] [address] [address] PROTEIN,TOTAL 6.9 g/dL 6.0-8.3 ALBUMIN 3.6 g/dL 3.5-5.0 ALKALINE PHOSPHATASE 70 U/L 40-150 AST 21 U/L 5-34 ALT 29 U/L BILIRUBIN, TOTAL 0.6 mg/dL 0.2-1.2 Sep 02, 2024 09:36 AM [facility] LIPID PANEL FASTING Specimen Type: SERUM No comment entered. Ordering Provider: JUANITA BIRCH Report Released Date/Time: Aug 20, 2024 02:24 PM Reporting Lab: [address] [address] Performing Lab: [facility] [address] [address] CHOLESTEROL 167 mg/dL TRIGLYCERIDE 102 mg/dL 0-150 LDL calculated 76 mg/dL 0-129 CHOL/HDL 2.4 HDL CHOLESTEROL 71 mg/dL H 40-60 Sep 02, 2024 09:36 AM [facility] CALCIUM Specimen Type: SERUM No comment entered. Ordering Provider: JUANITA BIRCH Report Released Date/Time: Aug 20, 2024 02:24 PM Reporting Lab: [address] [address] Performing Lab: [facility] [address] CALCIUM 9.1 mg/dL 8.5-10.2 Sep 02, 2024 09:36 AM [facility] URIC ACID Specimen Type: SERUM No comment entered. Ordering Provider: JUANITA BIRCH Report Released Date/Time: Aug 20, 2024 02:24 PM Reporting Lab: [address] [address] Performing Lab: [address] [address] URIC ACID 7.9 mg/dL H 3.5-7.2 Sep 02, 2024 09:36 AM [facility] VITAMIN D (25-OH) Specimen Type: SERUM No comment entered. Ordering Provider: JUANITA BIRCH Report Released Date/Time: Aug 20, 2024 02:24 PM Reporting Lab: [address] [address] Performing Lab: [address] [address] VITAMIN D (25-OH) 45 ng/mL 20-50 Sep 02, 2024 09:36 AM [facility] FERRITIN Specimen Type: SERUM No comment entered. Ordering Provider: JUANITA BIRCH Report Released Date/Time: Aug 20, 2024 02:24 PM Reporting Lab: [address] [address] Performing Lab: [address] [address] FERRITIN 302 ng/mL H 20-300 Sep 02, 2024 09:36 AM [facility] CBC AND DIFF (AUTO) Specimen Type: BLOOD No comment entered. Ordering Provider: JUANITA BIRCH Report Released Date/Time: Aug 20, 2024 02:24 PM Reporting Lab: [address] [address] Performing Lab: [address] [address] WBC 5.39 10*3/uL 4.50-11.00 RBC 4.07 10*6/uL [...] 10*3/uL 0.00-0.00 Sep 02, 2024 09:36 AM [facility] HEMOGLOBIN A1C PANEL Specimen Type: BLOOD Comment: [...] Aug 20, 2024 02:24 PM Reporting Lab: [address] [address] Performing Lab: [address] [address] HEMOGLOBIN A1C 7.1 H 4.0-5.6 Sep 02, 2024 09:36 AM [facility] TSH Specimen Type: SERUM No comment entered. Ordering Provider: JUANITA BIRCH Report Released Date/Time: Aug 20, 2024 02:24 PM Reporting Lab: [address] [address] Performing Lab: [address] [address] TSH 4.66 u[IU]/mL 0.35-5.00 Sep 02, 2024 09:36 AM [facility] MICROALBUMIN CREATININE RATIO PANEL Spe cimen Type: URINE No comment entered. Ordering Provider: JUANITA BIRCH Report Released Date/Time: Aug 20, 2024 02:24 PM Reporting Lab: [address] [address] Performing Lab: [address] [address] MICROALBUMIN/C REATININE RATIO 9.9 mg/g 0-29.9 MICROALBUMIN,Q UANTITATIVE 0.8 mg/dL RR UNAVAIL CREATININE URINE 80.78 mg/dL Sep 02, 2024 09:36 AM [facility] URINALYSIS Specimen Type: URINE Comment: If Glucose = >500 and Ketones are positive, please alert the Physician. Ordering Provider: JUANITA BIRCH Report Released Date/Time: Aug 20, 2024 02:24 PM Reporting Lab: [address] [address] Performing Lab: [address] [address] UA COLOR Light-Yellow Yellow UA APPEARANCE Clear Clear UA GLUCOSE Normal mg/dL Negative UA KETONES NEGATIVE mg/dL Negative UA BLOOD NEGATIVE mg/dL Negative UA PROTEIN NEGATIVE mg/dL Negative UA NITRITE NEGATIVE mg/dL Negative UA BILIRUBIN NEGATIVE mg/dL Negative UA SPECIFIC GRAVITY 1.017 1.016-1.022 UA pH 6.0 5.0-9.0 UA UROBILINOGEN Normal mg/dL <2.0 UA LEUKOCYTE TRACE Negative Sep 02, 2024 09:36 AM [facility] MICROSCOPIC AUTOMATED, URINE Specimen T ype: URINE Comment: If Glucose = >500 and Ketones are positive, please alert the Physician. Ordering Provider: JUANITA BIRCH Report Released Date/Time: Aug 20, 2024 02:24 PM Reporting Lab: [address] [address] Performing Lab: [address] [address] UA WBC 0-5 /[HPF] 0-5 UA MUCUS FEW /[LPF] Trace UA HYALINE CASTS 2-4 /[LPF] 0-2 UA SQUAMOUS EPITH FEW /[HPF] Sep 02, 2024 09:36 AM [facility] BASIC METABOLIC PANEL (fasting) Specime n Type: SERUM No comment entered. Ordering Provider: JUANITA BIRCH Report Released Date/Time: Aug 20, 2024 02:24 PM Reporting Lab: [facility] [address] [address] Performing Lab: [facility] [address] [address] UREA NITROGEN 45 mg/dL H 7-25 GLUCOSE [...] 97.6 79 126/76 18 98 236 34 [facility] IE Social History: Smoking Status (Most current) and Tobacco Use (All prior to encounter date) This section includes the most current, and the historical, smoking and tobacco- related health factors from the [place] facility where the Encounter took place. Current Smoking Status This section includes the most current smoking, or tobacco-related health factor, from the [place] facility where the Encounter took place. Date/Time Current Smoking Status Comment Buddy rooney Sep 03, 2024 10:00 AM [place]-TOBACCO FORMER USER [facility] Tobacco Use History This section includes a history of the smoking, or tobacco-related health factors, that were collected on or before the date of the Encounter. The data comes from the [place] facility where the Encounter took place. Date/Time Smoking Status/Tobacco Use Comment F acility Sep 03, 2024 10:00 AM VA-TOBACCO QUIT 15 YRS OR MORE [facility] Sep 05, 2023 10:00 AM VA-TOBACCO FORMER USER [facility] Sep 05, 2023 10:00 AM VA-TOBACCO NEVER USED [facility] Sep 05, 2023 10:00 AM VA-TOBACCO QUIT 15 YRS OR MORE [facility] Sep 08, 2022 11:30 AM VA-TOBACCO FORMER USER [facility] Sep 08, 2022 11:30 AM VA-TOBACCO QUIT 15 YRS OR MORE [facility] Jul 08, 2021 09:30 AM VA-TOBACCO FORMER USER [facility] Jul 08, 2021 09:30 AM VA-TOBACCO QUIT 15 YRS OR MORE [facility] May 28, 2020 10:04 AM VA-TOBACCO NEVER USED [facility] May 29, 2018 09:51 AM VA-TOBACCO FORMER USER [facility] May 29, 2018 09:51 AM VA-TOBACCO QUIT 15 YRS OR MORE [facility] May 29, 2018 09:39 AM LIFETIME NON-TOBACCO USER [facility] May 04, 2017 02:38 PM QUIT TOBACCO USE > 7 YEARS AGO [facility] Apr 28, 2016 10:02 AM QUIT TOBACCO USE > 7 YEARS AGO smoked for 4 years about 2 pack a week quit 50 years ago [facility] Aug 20, 2013 09:48 AM QUIT TOBACCO USE > 7 YEARS AGO 22 yo [facility] Encounter Notes: All associated encounter notes This section contains the clinical notes associated to the Encounter. Date/Time Encounter Note(s) Provider Source Dec 17, 2024 11:06 AM NURSING NONVA NOTE : LOCAL TITLE: OUTSIDE LAB RESULTS STANDARD TITLE: NURSING NONVA NOTE DATE OF NOTE: DEC 17, 2024@11:06 ENTRY DATE: DEC 17, 2024@11:06:55 AUTHOR: AMIRA SHELDON EXP COSIGNER: URGENCY: STATUS: COMPLETED Outside Lab Values Date of Lab draw: Oct Location of lab tests: [facility] Notated Outside Lab Values: BMP: GLUCOSE 216H BUN 36H CREATININE 1.91H eGFR 34 SODIUM 141 K+ 4.4 CL 104 CO2 27 LIVER PANEL: T. PROT 7.1 ALBUMIN 3.7 T. BILI 0.5 AST 25 ALT 23 MISCELLANEOUS LAB RESULTS: CA 9.7 OTHER LAB VALUES: ALK PHOSPHATASE 82 MAGNESIUM 2.2 /es/ Amira Sheldon, RN Registered Nurse (RN) Signed: 12/17/2024 11:12 AMIRA SHELDON GERRI Dec 17, 2024 10:58 AM NURSING NONVA NOTE : LOCAL TITLE: OUTSIDE LAB RESULTS STANDARD TITLE: NURSING NONVA NOTE DATE OF NOTE: DEC 17, 2024@10:58 ENTRY DATE: DEC 17, 2024@10:58:08 AUTHOR: AMIRA SHELDON EXP COSIGNER: URGENCY: STATUS: COMPLETED Outside Lab Values Date of Lab draw: Oct Location of lab tests: [facility] Notated Outside Lab Values: BMP: BUN 43H CREATININE 1.88H SODIUM 142 K+ 3.9 CL 104 CO2 26 CBC: WBC 6.5 RBC 4.15L HGB 13.0L HCT 38.3L MCV 92.3 MCH 31.3 MCHC 33.9 RDW 12.8 PLT 154L /es/ Amira Sheldon RN Registered Nurse (RN) Signed: 12/17/2024 11:14 AMIRA SHELDON GERRI Sep 03, 2024 10:23 AM PHYSICIAN ASSISTAN T NOTE: LOCAL TITLE: PA NOTE STANDARD TITLE: PHYSICIAN SOLE STAINER NOTE DATE OF NOTE: SEP 03, 2024@10:23 [...] - labs before Suicide Screen: C-SSRS Screening [place]-Suicide Severity Rating Scale (C-SSRS Screener) 1. Over [...] Not worried about housing near future The reports the following: Within the past 12 [...] decreased SENSORY CHECK: Includes 10 gram Monofilament ([place]-Halley) test of sensation. Intact (Greater than or [...] care. /celina/ JUANITA BIRCH PA-C STAFF PHYSICIAN SOLE STAINER Signed: 09/03/2024 10:53 JUANITA BIRCH
--- OUTSIDE RECORDS SUMMARY | 2025-01-28 09:22 | XMS_ITS | Encounter Summary ---
Author Name [place] Address [address] [place] [id number] Care Team Providers Care Scale Mechanic Name Role Phone JUANITA BIRCH Primary Care [...] Policy Bradford [facility] Nov 06, 2016 MEDICAR E SUPPLEM E [id number] Rao ODELL PATIENT MEDICARE (WNR) MEDICARE () PART A May 06, 2008 PART A [id number] [facility] Rao ODELL PATIENT MEDICARE (WNR) MEDICARE (M) PART B May 06, 2008 PART B [id number] Rao ODELL PATIENT MEDICARE (WNR) MEDICARE (M) PART A May 06, 2008 PART A [id number] Rao ODELL PATIENT MEDICARE (WNR) MEDICARE (M) PART B May 06, 2008 PART B [id number] [phone] CASSRao ICHAEL PATIENT Selected Encounter This section includes the information on record at [place] for the Encounter. Date/Time Encounter Type Encounter Description Reason Provider Source Mar 04, 2024 03:25 PM QNHP OL DIG ASSMT&MGMT 5-10 CLINICAL PHARMACY ICD-10-CM E11.65 Type [address] mellitus with hyperglycemia [address] Encounter Template Text not used by [place] Assessments - Encounter Diagnoses This section includes [...] care activities for the patient from all [place] treatmentfacilities. This section includes future appointments and future orders which are active, pending or scheduled. Future Appointments This section includes appointments that were scheduled to occur 6 months from the date of the Encounter, up to a maximum of 20 appointments. The data comes from all [place] treatment facilities. Appointment Date/Time Appointment Type Appointme [...] of theEncounter. The data comes from all [place] treatment [facility]. Test Date/Time Test Type Test Details Facility Name Mar 04, 2024 12:00 AM Laboratory - Chemistry Order HEMOGLOBIN A1C PANEL BLOOD (LAV-BLOOD) [facility] Mar 04, 2024 12:00 AM Laboratory - Chemistry Order CREATININE (eGFR 2020) BLOOD (SST-SERUM) [facility] Encounter Notes: All associated encounter notes [...] formulary alternative(s) shea /celina/ Brii Lane, PharmD, [facility] Clinical Heel Edge Inker Machine Signed: 03/04/2024 15:[address] [facility]
--- OUTSIDE RECORDS SUMMARY | 2025-01-28 09:22 | XMS_ITS | Continuity of Care Document ---
Author Organization [facility] Suleman clara Address [address] [place] [id number]- Care Team Providers Care Model Maker Firearms Name Role Phone Khoi CALVILLO, Aldo Armstrong Primary Care Physician Encounter [facility] Date(s): 12/13/24 - 01/12/25 [facility] [address] [place] [address] Drive [address] [place], [place] [address] Attending Physician: Raheem Chen Admitting Physician: Raheem Chen Referring Physician: Raheem Chen Encounter Type: Triage Allergies, Adverse Reactions, Alerts No Known Allergies Medications atorvastatin 80 mg oral tablet 1 tablet = 80 mg, By Mouth, Daily, # 30 tablet, 0 Refills, Maintenance, 09/03/19 3:24:50 PM EDT, Tablet Start Date: 09/03/19 Status: Ordered Quantity: 30.0 Unit: tablet Repeat number: 1 BuPROPion (Eqv-Wellbutrin SR) 150 mg/12 hours oral tablet, extended release 1 tablet = 150 mg, By Mouth, Daily, 0 Refills, Maintenance, 01/02/25 1:22:00 PM EST, Partial fill upon patient request if the prescription is for a schedule II opioid drug. Start Date: 01/02/25 Status: Ordered Repeat number: 1 Docusate Sodium Capsule 100 mg, 1, capsule, By Mouth, 2 times a day, Refills 0, Maintenance, 09/12/19 1:36:53 PM EST Start Date: 09/12/19 Status: Ordered Repeat number: 1 Eliquis 2.5 mg oral tablet 1 tablet = 2.5 mg, By Mouth, 2 times a day, # 60 tablet, 0 Refills, Maintenance, 11/28/24 11:22:00 AM EST, Tablet, Partial fill upon patient request if the prescription is for a schedule II opioid drug. Start Date: 11/28/24 Status: Ordered Quantity: 60.0 Unit: tablet Repeat number: 1 famotidine 20 mg oral tablet 20 mg, 1, tablet, By Mouth, Daily at bedtime, # 30 tablet, Refills 0, Maintenance, 09/24/19 4:54:47PM EST Start Date: 09/24/19 Status: Ordered Quantity: 30.0 Unit: tablet Repeat number: 1 Ferrous Sulfate EC Refills 0, Maintenance, 11/28/24 11:25:00 AM EST, Partial fill upon patient request if the prescription is for a schedule II opioid drug. Start Date: 11/28/24 Status: Ordered Repeat number: 1 Fish Oil By Mouth, 0 Refills, Maintenance, 11/28/24 11:23:00 AM EST, Partial fill upon patient request if theprescription is for a schedule II opioid drug. Start Date: 11/28/24 Status: Ordered Repeat number: 1 insulin glargine 100 units/mL subcutaneous solution = 32 units, Subcutaneous Injection, Daily before lunch, 0 Refills, Maintenance, 09/12/19 1:37:05 PM EST, Injection Start Date: 09/12/19 Status: Ordered Repeat number: 1 magnesium amino acids chelate (as elemental magnesium) 133 mg oral tablet 0 Refills, Maintenance, 11/28/24 11:25:00 AM EST, Partial fill upon patient request if the prescription is for a schedule II opioid drug. Start Date: 11/28/24 Status: Ordered Repeat number: 1 metoprolol 25 mg oral tablet 12.5 mg, 0.5, tablet, By Mouth, 2 times a day, Refills 0, Maintenance, 09/13/19 10:38:14 AM EST Start Date: 09/13/19 Status: Ordered Repeat number: 1 Multi Vitamin+ 0 Refills, Maintenance, 11/28/24 11:23:00 AM EST, Partial fill upon patient request if the prescription is for a schedule II opioid drug. Start Date: 11/28/24 Status: Ordered Repeat number: 1 sertraline 100 mg oral tablet 1 tablet = 100 mg, By Mouth, 2 times a day, # 30 tablet, 0 Refills, Maintenance, 10/29/19 3:25:02 PM EDT, Tablet Start Date: 09/03/19 Status: Ordered Quantity: 30.0 Unit: tablet Repeat number: 1 torsemide 20 mg oral tablet 1 tablet = 20 mg, By Mouth, Daily, 0 Refills, Maintenance, 09/13/19 11:45:06 AM EST, Tablet Start Date: 09/13/19 Status: Ordered Repeat number: 1 Vitamin C By Mouth, Daily, 0 Refills, Maintenance, 11/28/24 11:22:00 AM EST, Partial fill upon patient requestif the prescription is for a schedule II opioid drug. Start Date: 11/28/24 Status: Ordered Repeat number: 1 Problem List Condition Confirmation Course Effective Dates Status Health St atus Informant CAD (coronary artery disease) Confirmed Active Obese class I Confirmed Active Social History Social History Type Response Smoking Status Never (less than 100 in lifetime) entered on: 09/24/19 Sex Sex Representation Male (finding) Patient Care team information Care Team Personnel Name: Nugyen Milton CNM Position: Reference Physician Member Role: Primary Care Nurse Address: [address] [place] [address]- Telecom: Name: July Duncan RN Position: [facility] SN RN Member Role: Primary Care Nurse Name: Megan Geiger RN Position: [facility] RN Member Role: Primary Care Nurse Name: Violet Francisco RN Position: [facility] SN RN Member Role: Primary Care Nurse Name: Agustín Lala DO Position: [facility] Renal MD Member Role: Lifetime Consulting Physician Address: [address] [place] [address] [address] [facility] [place] [address]- Telecom: Name: Aldo Westfall MD Position: Reference Physician Member Role: PCP Address: [address] [place] [address], [address] [place] [address]- NR Telecom: Name: Elle Rachel RN Position: S RN Member Role: Primary Care Nurse Name: Elicia Gimenez RN Position: S RN Member Role: Primary Care Nurse Name: Hawa De Guzman Position: [facility] AMB Nurse Member Role: Lifetime Consulting Physician Care Team Related Persons Name: NANETTE ODELL Insurance Providers Guarantor name: MATHEW JADEDelores Health Plan Information #: 1 Payer: MEDICARE A INPT 25 Member Number: NA Policy Number: NA Group Number: NA Health Plan Information #: 2 Payer: [employer]MUNDO JEFFERY SUP Member Number: NA Policy Number: NA Group Number: NA
--- OUTSIDE RECORDS SUMMARY | 2025-01-28 09:22 | XMS_ITS | Encounter Summary ---
Author Name [facility] [facility] Address [address] [place] [address] Care Team Providers Care Recruitment Manager Name Role Phone JUANITA BIRCH Primary [...] Bradford's Name Patient's Relationship to Policy Bradford [facility] MEDICARE SUPPLEMEN HANS [place] IND Nov 06, 2016 MEDICAR E SUPPLEM E [id number] Rao ODELL PATIENT MEDICARE (WNR) MEDICARE (M) PART A May 06, 2008 PART A [id number] [facility] Rao ODELL PATIENT MEDICARE (WNR) MEDICARE (M) PART B May 06, 2008 PART B [id number] [facility] [phone] [id number] Rao ODELL PATIENT MEDICARE (WNR) MEDICARE (M) PART B May 06, 2008 PART B [id number] Rao ODELL PATIENT MEDICARE (WNR) MEDICARE (M) PART A May 06, 2008 PART A [id number] [phone] Rao ODELL PATIENT Selected Encounter This section includes the information on record at [place] for the Encounter. Date/Time Encounter Type Encounter Description Reason Provider Source Apr 15, 2024 09:00 AM MTMS BY PHARM JB 15 MIN CLINICAL PHARMACY ICD-10-CM E11.65 Type 2 diabetes mellitus with hyperglycemia ELVIA WONG [place] Encounter Template Text not used by [place] Assessments - Encounter Diagnoses This section includes the primary and secondary diagnoses documented for the Encounter. Date/Time Primary/Secondary Diagnosis Diagnosis Name Provider Source Apr 15, 2024 09:09 AM PRIMARY Type 2 diabetes mellitus with hyperglycemia ELVIA WONG [place] Plan of Treatment: Future Appointments (+ 6 months) and Future Tests (+/- 45 days) The Plan of Treatment section includes future care activities for the patient from all [place] [facility] This section includes future appointments and future orders which are active, pending or scheduled. Future Appointments This section includes appointments that were scheduled to occur 6 months from the date of the Encounter, up to a maximum of 20 appointments. The data comes from all [place] treatment facilities. Appointment Date/Time Appointment Type Appointme nt Facility Name Sep 03, 2024 10:00 AM [facility]ATORY - MEDICINE [facility] Oct 08, 2024 03:30 PM [facility]ATORY - MEDICINE [facility] Active, Pending, and Scheduled Orders This section includes a listing of several types of active, pending, and scheduled orders, including clinic medications orders, diagnostic test orders, procedure orders and consult orders; where the start date of the order is 45 days before the date of the Encounter or 45 days after the date of theEncounter. The data comes from all [place] treatment [facility]. Test Date/Time Test Type Test Details Facility Name Mar 04, 2024 12:00 AM Laboratory - Chemistry Order HEMOGLOBIN A1C PANEL BLOOD (LAV-BLOOD) [facility] Mar 04, 2024 12:00 AM Laboratory - Chemistry Order CREATININE (eGFR 2020) BLOOD (SST-SERUM) [facility] Social History: Smoking Status (Most current) and Tobacco Use (All prior to encounter date) This section includes the most current, and the historical, smoking and tobacco- related health factors from the [place] facility where the Encounter took place. Current Smoking Status This section includes the most current smoking, or tobacco-related health factor, from the [place] facility where the Encounter took place. Date/Time Current Smoking Status Comment Facil ity Sep 05, 2023 10:00 AM VA-TOBACCO FORMER USER [place] Tobacco Use History This section includes a history of the smoking, or tobacco-related health factors, that were collected on or before the date of the Encounter. The data comes from the [place] facility where the Encounter took place. Date/Time Smoking Status/Tobacco Use Comment Linda carranza Sep 05, 2023 10:00 AM VA-TOBACCO NEVER USED [place] Sep 05, 2023 10:00 AM VA-TOBACCO QUIT 15 YRS OR MORE [place] Sep 08, 2022 11:30 AM VA-TOBACCO FORMER USER [place] Sep 08, 2022 11:30 AM VA-TOBACCO QUIT 15 YRS OR MORE [place] Jul 08, 2021 09:30 AM VA-TOBACCO FORMER USER [place] Jul 08, 2021 09:30 AM VA-TOBACCO QUIT 15 YRS OR MORE [place] May 28, 2020 10:04 AM VA-TOBACCO NEVER USED [place] May 29, 2018 09:51 AM VA-TOBACCO FORMER USER [place] May 29, 2018 09:51 AM VA-TOBACCO QUIT 15 YRS OR MORE [place] May 29, 2018 09:39 AM LIFETIME NON-TOBACCO USER [place] May 04, 2017 02:38 PM QUIT TOBACCO USE > 7 YEARS AGO [place] Apr 28, 2016 10:02 AM QUIT TOBACCO USE > 7 YEARS AGO smoked for 4 years about 2 pack a week quit 50 years ago [place] Aug 20, 2013 09:48 AM QUIT TOBACCO USE > 7 YEARS AGO 22 yo [place] Encounter Notes: All associated encounter notes This [...] ODELL presented for diabetes management treatment. Subjective: Dudley referred to pharmacy PACT clinic by PCP [...] of Preventive Care: Most recent visit to bobbin inspector: none; counseled Most recent visit to optometry: [...]
--- OUTSIDE RECORDS SUMMARY | 2025-01-28 09:22 | XMS_ITS | Continuity of Care Document ---
Author Organization [facility] Suleman clara Address [address] [place] [address]- Care Team Providers Care Architectural Representative Name Role Phone Khoi CALVILLO, Aldo Armstrong Primary Care Physician [phone] Encounter [facility] Date(s): 12/09/24 - 01/08/25 [facility] Surgery [address] [place] [address] Drive [address] [place], [place] [address] Encounter Type: Triage Allergies, Adverse Reactions, Alerts [...] day, # 30 tablet, 0 Refills, Maintenance, 09/03/19 3:25:02 PM EDT, Tablet Start Date: 09/03/19 [...] Care team information Care Team Personnel Name: Nguyen Milton CNM Position: Reference Physician Member Role: Primary Care Nurse Address: [address] [place] [address]- Telecom: Name: July Duncan RN Position: [facility] SN RN Member Role: Primary Care Nurse Name: Megan Geiger RN Position: [facility] RN Member Role: Primary Care Nurse Name: Violet Francisco RN Position: [facility] RN Member Role: Primary Care Nurse Name: Agustín Lala DO Position: [facility] Renal MD Member Role: Lifetime Consulting Physician Address: [address] [place], [place] [address] [place] [address]- Telecom: Name: Aldo Westfall MD Position: Reference Physician Member Role: PCP Address: [address] [place] [address], [address] [place] [address]- Telecom: Name: Elle Rachel RN Position: S RN Member Role: Primary Care Nurse Name: Elicia Gimenez RN Position: S RN Member Role: Primary Care Nurse Name: Hawa De Guzman Position: [facility] AMB Nurse Member Role: Lifetime Consulting Physician Care Team Related Persons Name: NANETTE ODELL Insurance Providers Guarantor name: MATHEW ODELL Health Plan Information #: 1 Payer: MEDICARE A INPT 25 Member Number: NA Policy Number: NA Group Number: NA Health Plan Information #: 2 Payer: EDMUNDO JEFFERY SUP Member Number: NA Policy Number: NA Group Number: NA
--- OUTSIDE RECORDS SUMMARY | 2025-01-28 09:22 | XMS_ITS | Continuity of Care Document ---
Author Organization [facility] ter Address [address] [place] [id number]- Care Team Providers Care Director Corporate Name Role Phone Khoi CALVILLO, Aldo Armstrong Primary Care Physician [id number] Date(s): 01/07/25 - 01/08/[address] [address]- Discharge Disposition: A-D/C Home Attending Physician: Sarabjit Lay MD Admitting Physician: Sarabjit Lay MD Referring Physician: Haresh CALVILLO John Encounter Type: Disch IP Allergies, Adverse Reactions, Alerts No Known Allergies [...] Condition Confirmation Course Effective Dates Status Health atus Informant CAD (coronary artery disease) Confirmed Active Obese class I Confirmed Active Results Radiology Reports * Exam Date Time Procedure Performing Provider Status 01/08/25 6:32 AM Chest Portable Huber , Kylea; Auth (Veri fied) Notes: (Chest Portable) Reason For Exam: S/P TAVR;Postop RESULT: Chest Portable Chest Portable Reason: Postop; S P TAVR; Clinical Question(s): Other:; Cardiac Tamponade / Other: COMPARISON: 01/07/2025 FINDINGS: LINES AND TUBES: None. LUNGS AND PLEURA: Bilateral calcified pleural plaque. Unchanged hazy opacity throughout both lungs. Chronic right apical opacity and blunting of the left costophrenic angle. No pneumothorax. HEART, MEDIASTINUM AND BRIAN: Unchanged. Status post TAVR. BONES AND SOFT TISSUES: No acute abnormality. Status-post median sternotomy. IMPRESSION: No significant change. WSN: [id number] Ordering Physician: Christopher Stark Dictated By: Nikita Freire MD Dictated Date/Time: 01/08/25 3:50 pm Reviewed By: Nikita Freire MD Signed By: Nikita Freire MD Signed Date/Time: 01/08/25 3:50 pm Transcribed By: CANDACE Transcribed Date/Time: 01/08/25 3:49 pm * Exam Date Time Procedure Performing Provider Status 01/07/25 11:12 PM Chest Portable Huber , Kylea; Auth (Jen ified) Notes: (Chest Portable) Reason For Exam: Shortness of Breath RESULT: Chest Portable Chest Portable upright at 10:47 PM Reason: Shortness of Breath; Clinical Question(s): Pulmonary Edema COMPARISON: Several priors, the most recent at 1:58 PM on the same date. FINDINGS: LINES AND TUBES: None. LUNGS AND PLEURA: Stable bilateral lung opacities. Unchanged pleural calcification is present and there is stable opacification of the right lung apex. Both costophrenic angles remain blunted. No pneumothorax. HEART, MEDIASTINUM AND BRIAN: Stable cardiac size with evidence of CABG procedure and TAVR Normal mediastinal and hilar contour. BONES AND SOFT TISSUES: No acute abnormality. IMPRESSION: Stable areas of increased airspace density bilaterally similar to studies dating back to 2019, mostconsistent with scarring. Small bilateral pleural effusions versus costophrenic angle pleural thickening. Stable opacification in the apex of the right hemithorax and bilateral pleural calcification Status post CABG procedure and TAVR WSN: [id number] Ordering Physician: Diandra Santoro Dictated By: Mathew Cuba MD Dictated Date/Time: 01/07/25 11:30 p Reviewed By: Mathew Cuba MD Signed By: Mathew Cuba MD Signed Date/Time: 01/07/25 11:30 pm Transcribed By: CANDACE Transcribed Date/Time: 01/07/25 11:27 pm * Exam Date Time Procedure Performing Provider Status 01/07/25 2:13 PM Chest Portable Allison Hines; Susan ( Verified) Notes: (Chest Portable) Reason For Exam: S/P TAVR;Postop RESULT: Chest Portable Chest Portable Reason: Postop; S P TAVR; Clinical Question(s): Other:; Cardiac Tamponade; COMPARISON: Multiple priors, most recent 09/10/2019 CTA chest 12/28/2024 FINDINGS: LINES AND TUBES: Inferior approach pacing wire likely terminating in the right ventricle. LUNGS AND PLEURA: Right greater than left areas of pleural thickening/scarring and calcification, better visualized on recent CT study. This is most significant in the right apical region. Interstitial and airspace opacities in both lungs, increased from the prior study. Small bilateral pleural effusions with adjacent atelectasis, unchanged. No pneumothorax. HEART, MEDIASTINUM AND BRIAN: Mild prominence of the cardiac silhouette. Status post TAVR. Prior CABG Normal mediastinal and hilar contour. BONES AND SOFT TISSUES: No acute abnormality. IMPRESSION: 1. Status post TAVR 2. Increased opacities in both lungs, which likely represents chronic scarring/atelectasis. Acute process such as pulmonary edema cannot be excluded. 3. Severe chronic pleural thickening/calcification, most significant in the right lung apex. These findings are mostly consistent with asbestos exposure or bilateral chronic inflammatory process. 4. Inferior approach temporary pacing wire likely terminating in the right ventricle. I have personally reviewed the images and I agree with this report. WSN: [id number] Ordering Physician: Christopher Stark Dictated By: Lucinda Sánchez DO Dictated Date/Time: 01/07/25 2:55 pm Reviewed By: Faisal Ordaz MD, V Signed By: Faisal Ordaz MD, V Signed Date/Time: 01/07/25 3:00 pm Transcribed By: CANDACE Transcribed Date/Time: 01/07/25 2:46 pm Vital Signs Most recent to oldest [Reference Range]: 1 2 3 Height 178 cm (01/08/25 11:20 AM) 178 cm (01/08/25 7:59 AM) 178 cm (01/08/25:33 AM) Weight 103.1 kg (01/08/25:41 AM) 103.1 kg (01/08/25: AM) 108.8 kg (01/07/25 11:06 AM) Oxygen Saturation [94-100 %] 99 % (01/08/25 11:20 AM) 97 % (01/08/25 7:59 AM) 100 % (01/08/25:33 AM) Pulse Rate [55-90 bpm] 64 bpm (01/08/25 11:20 AM) 80 bpm (01/08/25 7:59 AM) 72 bpm (01/07/25 11:41 PM) Body Mass Index [18.5-24.99 kg/m2] 32.54 kg/m2 *>HHI* (01/08/25 4:33 AM) 34.34 kg/m2 *>HHI* (01/07/25 11:06 AM) Blood Pressure [90-138/55-84 mm Hg] 122/63mm Hg (01/08/25 11:20 AM) 135/6mm Hg (01/08/25 7:59 AM) 152/92mm Hg *H* (01/08/25 4:33 AM) Respiratory Rate [16-30 br/min] 17 br/min (01/08/25 11:20 AM) 17 br/min (01/08/25 7:59 AM) 18 br/min (01/08/25 4:33 AM) Temperature [96.8-100.4 DegF] 98.2 DegF (01/08/25 11:20 AM) 98.3 DegF (01/08/25 7:59 AM) 98.2 DegF (01/08/25 4:33 AM) Liters per Minute 5 L/min (01/08/25 11:20 AM) 4 L/min (01/08/25 7:59 AM) 3 L/min (01/07/25 11:41 PM) Mode of Delivery (Oxygen) Nasal cannula (01/08/25 11:20 AM) Nasal cannula (01/08/25 7:59 AM) CPAP (01/08/25 4:33 AM) Blood pressure sites Arm, left (01/08/25 11:20 AM) Arm, left (01/08/25 7:59 AM) Arm, left (01/08/25 4:33 AM) Temperature Route Oral (01/08/25 11:20 AM) Oral (01/08/25 7:59 AM) Oral (01/08/25 4:33 AM) Weight Obtained Via Bed scale (01/08/25 4:41 AM) Bed scale (01/08/25 4:33 AM) Standing scale (01/07/25 11:06 AM) Social History Social History Type Response Smoking Status Never (less than 100 in lifetime) entered on: 09/24/19 Sex Sex Representation Male (finding) Note * iNkita Bella: PERFORM, SIGN, VERIFY Event Display: Cardiac Rehab Note Authored Date: [id number] Patient: MATHEW ODELL Age: 79 years Sex: Male : 1945 Associated Diagnoses: None Author: Nikita Bella Diagnosis Cardiac Rehab Diagnosis: Attended Cardiac Surgery Rounds, see CV Progress Note for updated POC.. * Sue Navarro: PERFORM, SIGN, VERIFY Event Display: Cardiac Rehab Note Authored Date: Patient: MATHEW ODELL Age: 79 years Sex: Male : 1945 Associated Diagnoses: None Author: Sue Navarro Diagnosis Cardiac Rehab Diagnosis: s/p TAVR. Pre-exercise Vitals Vital Signs Comment: Reviewed in [facility]. Pre-exercise Physical Examination Neurologic: alert & oriented. Activity Symptoms with Cardiac Rehab Symptoms: No exertional symptoms. Activity Activity tolerance: Change in activity tolerance (increased, Reports ambulating in room at baseline). Patient Education Education: Patient alone, Written material included. Education topic Teachback comprehension 75% Topic: Pathophysiology, Role of exercise, Home activity guidelines/limits, Post operative recovery guidelines. Recommendation and Plan Outpatient follow up recommended: [facility], in 2-3 weeks. Cardiac Rehab: Will sign off at this time. * Larisa Medeiros NP: PERFORM Event Display: Discharge/Transfer Note Hospital Authored Date: Patient: ??MATHEW ODELL ? Age:??79 Years?Sex:??Male?:??1945?? Patient Information Discharge Location: Primary Care Physician: Khoi CALVILLO, Aldo Armstrong Admit Date/Time: 01/07/2025 09:56 Discharge Disposition Discharge Disposition: Home: No Services Discharge Diagnosis Aortic stenosis (I35.0) _ Discharge Medications apixaban (Eliquis 2.5 mg oral tablet)??1 tab(s) 2.5 Milligram By Mouth 2 times a day Ascorbic Acid (Vitamin C)??By Mouth Daily Atorvastatin (atorvastatin 80 mg oral tablet)??1 tab(s) 80 Milligram By Mouth Daily BuPROpion (BuPROPion (Eqv-Wellbutrin SR) 150 mg/12 hours oral tablet, extended release)??1 tab(s) 150 Milligram By Mouth Daily Docusate (Docusate Sodium Capsule)??100 Milligram 1 capsule By Mouth 2 times a day Famotidine (famotidine 20 mg oral tablet)??20 Milligram 1 tablet By Mouth Daily at bedtime Insulin Glargine (insulin glargine 100 units/mL subcutaneous solution)??32 unit(s) Subcutaneous Injection Daily before lunch Metoprolol (metoprolol 25 mg oral tablet)??12.5 Milligram 0.5 tablet By Mouth 2 times a day Denver-3 Polyunsaturated Fatty Acids (Fish Oil)??By Mouth Sertraline (sertraline 100 mg oral tablet)??1 tab(s) 100 Milligram By Mouth 2 times a day torsemide (torsemide 20 mg oral tablet)??1 tab(s) 20 Milligram By Mouth Daily ? Durable Medical Equipment CPAP/BiPAP Mask Type: Full (01/08/25) CPAP/BiPAP Mask Size: Medium (01/08/25) ? Medications Started Apixaban Medications Discontinued none Doses Changed none Allergies Allergies ?(Active and Proposed Allergies Only) NKA? (Severity: Unknown severity, Onset: Unknown) ? Hospital Course The patient is an 79-year-old white male whose cardiovascular history is remarkable for hypertension, hyperlipidemia, multivessel coronary artery disease (s/p four-vessel coronary artery bypass grafting in 2019), ischemic cardiomyopathy, congestive heart failure, paroxysmal atrial fibrillation, and severe symptomatic aortic valve stenosis. The patient was evaluated and was deemed a suitable candidate for TAVR and presents 01/07/25 for TAVR procedure. ?? Issues addressed during the post procedure period are summarized below: ? S/P TAVR, ??Neuro: ?- ambulating ad sharonda ?- Wellbutrin ?- Zoloft ??Cardiac: ?- Rhythm: NSR rates in the 60s ?- TVP to stay in place for 2 hours post deployment ?- Eliquis 2.5mg BID ?- Lipitor 80mg daily ?- Daily EKG ?- Torsemide 20mg daily ?- Post TAVR Echo completed EKG completed ?- ZIO Monitor on D/c for Left Bundle noted ??Pulm: ?- Encourage OOB, IS uses O2 at home Overnight was noted to have lungs with rales and was given Lasix ivp x1. cxr revealed similar to previous cxr's pleural scarring and calcifications.??Pt reports today he is at his baseline. ??GI: ?- PPI for GI prophylaxis discontinued at discharge ?- Resumed diet. ??Renal: ?- Strict I/Os, Daily weights ?- Daily BMPs ??ID: ?- Con't abx per post-operative protocol ??Endocrine: DMII ?continue home medications ? Objective Assessment and Plan ? Vital Signs?? Temperature: 98.2 DegF (01/08/25 11:20:00) Temperature Route: Oral (01/08/25 11:20:00) Pulse Rate: 64 bpm (01/08/25 11:20:00) Heart Rate Monitored: 78 bpm (01/07/25 17:00:37) Respiratory Rate: 17 br/min (01/08/25 11:20:00) Systolic Blood Pressure: 122 mm Hg (01/08/25 11:20:00) Diastolic Blood Pressure: 63 mm Hg (01/08/25 11:20:00) Blood pressure sites: Arm, left (01/08/25 11:20:00) Mean Arterial Pressure: 83 mm Hg (01/08/25 11:20:00) Pulse Pressure: 59 mm Hg (01/08/25 11:20:00) Oxygen Saturation: 99 % (01/08/25 11:20:00) Liters per Minute: 5 L/min (01/08/25 11:20:00) Mode of Delivery (Oxygen): Nasal cannula (01/08/25 11:20:00) FiO2: 36 % (01/08/25 04:13:00) Early Warning Score: 0 (01/08/25 13:15:11) ? . Physical Exam Neurological: alert, nonfocal. ? Pulmonary/Lungs: decreased, bases both. ? Cardiovascular: S1, S2, NSR. ? Gastrointestinal: Abdomen soft, non-tender, non-distended, bowel sounds present?? Extremities: Pulses palpable. ?groins soft??without hematoma, Pending Results BUN ordered on 01/08/2025 CBC w/ Differential ordered on 01/08/2025 Creatinine ordered on 01/08/2025 Electrolytes ordered on 01/08/2025 Magnesium Level ordered on 01/08/2025 RBCs for Surgery ordered on 01/07/2025 Type and Screen ordered on 01/08/2025 XR Chest Portable ordered on 01/08/2025 Patient Education Titles [employer] Patient Education - TAVR Discharge Instructions?? Follow-Up Appointments Added Follow Up ?Time Frame ?Comments [facility]?01/29/2025 13:30 John Browne MD?03/17/2025 14:45 ECHO?03/07/2025 09:00 John Hutson MD?01/28/2025 09:15 Results Discharge Labs BLOOD BANK Blood Type O Negative ()?? 01/07/2025 19:10 Antibody Screen Negative ()?? 01/07/2025 19:10 RBC Unit ID [id number] ()?? 01/07/2025 01:13 RBC Available RE ()?? 01/07/2025 01:13 ?? BLOOD COUNT & DIFF WBC 7.9 k/mm3 ()?? 01/08/2025 00:46 RBC 3.77 m/mm3 (Low)?? 01/08/2025 00:46 Hgb 11.8 Gm/dL (Low)?? 01/08/2025 00:46 Hct 35.9 % (Low)?? 01/08/2025 00:46 MCV 95.2 femtoliters (High)?? 01/08/2025 00:46 MCH 31.3 pg ()?? 01/08/2025 00:46 MCHC 32.9 Gm/dL (Low)?? 01/08/2025 00:46 Platelet Count 164 k/mm3 ()?? 01/08/2025 00:46 RDW-SD 47.4 femtoliters (High)?? 01/08/2025 00:46 MPV 10.9 femtoliters ()?? 01/08/2025 00:46 Nucleated RBC (Automated) 0.0 #/100 WBC'S ()?? 01/08/2025 00:46 Abs. NRBC 0.0 k/mm3 ()?? 01/08/2025 00:46 Abs. Neut 6.1 k/mm3 ()?? 01/08/2025 00:46 Abs. Lymph 1.0 k/mm3 ()?? 01/08/2025 00:46 Abs. Hays 0.7 k/mm3 ()?? 01/08/2025 00:46 Abs. Eo 0.2 k/mm3 ()?? 01/08/2025 00:46 Abs. Baso 0.0 k/mm3 ()?? 01/08/2025 00:46 Neut % 76.6 % (High)?? 01/08/2025 00:46 Lymph % 12.4 % (Low)?? 01/08/2025 00:46 Hays % 8.2 % ()?? 01/08/2025 00:46 Eos % 2.1 % ()?? 01/08/2025 00:46 Baso % 0.3 % ()?? 01/08/2025 00:46 Imm Gran 0.4 % ()?? 01/08/2025 00:46 Abs. Imm Gran 0.0 k/mm3 ()?? 01/08/2025 00:46 ?? CARDIAC Nt-Probnp 3474 pg/mL (High)?? 01/07/2025 10:19 ? CHEM GENERAL Sodium 142 mmol/L ()?? 01/08/2025 00:51 Potassium 4.6 mmol/L ()?? 01/08/2025 00:51 Chloride 102 mmol/L ()?? 01/08/2025 00:51 Bicarbonate Level 30 mmol/L (High)?? 01/08/2025 00:51 Anion Gap 10 mmol/L ()?? 01/08/2025 00:51 Glucose, POC 263 mg/dL (High)?? 01/08/2025 11:52 BUN 34 mg/dL (High)?? 01/08/2025 00:51 Creatinine-Blood 1.94 mg/dL (High)?? 01/08/2025 00:51 Estimated GFR Creatinine 34 ML/MIN/1.73 M2 ()?? 01/08/2025 00:51 Magnesium 2.2 mg/dL ()?? 01/08/2025 00:51 ?? COAG POC ACT-LR 343.0 seconds ()?? 01/07/2025 12:21 ? Blood Glucose Trend Glucose, POC:??263 mg/dL??High (01/08/25 11:52:00) Glucose, POC:??191 mg/dL??High (01/08/25 08:03:00) Glucose, POC:??173 mg/dL??High (01/08/25 05:03:00) Glucose, POC:??244 mg/dL??High (01/07/25 22:23:00) ? 30_ minutes spent on discharge * Jacob Diaz RN: PERFORM Event Display: Patient Education/Instruction Authored Date: Inpatient Adult Discharge Instructions. [address] [id number] Name: MATHEW ODELL : 1945?? Visit: 01/07/2025 09:56?? Current Date: 01/08/2025 15:21 ?? Account: [id number]?? Inpatient Adult Discharge Instructions We would like to thank you for allowing us to assist you with your healthcare needs. The following includes patient education materials and information regarding your injury/illness. Our entire staffstrives to provide an excellent experience for our patients and their families. PLEASE ENSURE YOU FOLLOW-UP PER THE INSTRUCTIONS BELOW! ?? YOUR OPINION IS IMPORTANT TO US! Please complete the survey you may receive by mail or email. Your feedback will be used to make improvements to the healthcare experiences of our patients and their families. Surveys are administered by [employer] ?? If further treatment with your primary care physician or another doctor is recommended, it is important for you to keep the appointment. Call your primary care physician or return to the Emergency Department immediately if your condition worsens, fails to improve, or new symptoms develop. If you need to find a doctor, you can call [facility] for a referral at [phone] or toll free at [phone] or log in to [email or web address] ?? [facility], in keeping with [facility] guidance, no longer requires face masks for staff, patientsor visitors in most situations. Similiar to time spent indoors at other locations, there is the chance that you were exposed to repiratory viruses during your time with us (such as flu or COVID-19). If you develop symptoms concerning for a viral respiratory infection, please seek testing (and treatment if indicated) from your medical provider or home test kit. ?? You can view and manage your care through the patient portal or by using a health care candelario of your choosing. [employer] is a website that allows you to securely view your medical information including your hospital discharge summary, office visit summaries, medications and follow-up visits. You can also request appointments, renew medications, and request access to your medical information using a health care candelario of your choosing, or just ask a question. You are entitled to know the individuals who participated in your treatment. This information is available within your medical record and will be provided upon your request. You can enroll at [email or web address] or register d uring your next office visit. You have been discharged from [facility], Patient Care Unit: M6??. If you have any questions regarding these instructions, including results of studies pending, afteryou leave, please call us and we will be happy to assist you 29/05. [facility] Your Care Team Attending Physician Sarabjit Lay MD?? Consulting Providers Sarabjit Lay MD?? Discharging Providers Larisa Medeiros NP Your Diagnosis Aortic stenosis Tests Performed Below is a partial list of the tests performed during your hospitalization. You may have had other tests and procedures not included in this list. Please discuss all test results with your provider. BUN CBC w/ Differential Creatinine Electrolytes GLUCOSE POC Hgb + Hct Magnesium Level POC Hemochron ACT-LR ProBNP Portable Chest XR Chest Portable B Type Natriuretic Peptide (NT-proBNP) (ProBNP)?? BUN?? CBC w/ Differential?? Creatinine?? Electrolytes?? Glucose POC?? Hgb + Hct?? Magnesium Level?? POC ACT-LR (POC Hemochron ACT-LR)?? RBCs for Surgery?? Type and Screen?? Chest Portable (Portable Chest)?? Primary Care Provider Khoi CALVILLO, Aldo Armstrong? Advance Directive Health Care Proxy on File Yes - Health Care Proxy Discharge Vitals Temperature: 98.2 DegF Height: 178 cm Pulse Rate: 64 bpm Weight: 103.1 kg Respiratory Rate: 17 br/min Body Mass Index:??32.54 kg/m2??Critical Systolic Blood Pressure: 122 mm Hg Body surface area: 2.26 Diastolic Blood Pressure: 63 mm Hg ?? Oxygen Saturation: 99 % ?? Studies Pending All studies ordered during this hospital stay have been completed unless listed below. Please discuss all pending results with your provider listed above in these instructions. ?? BUN?? CBC w/ Differential?? Creatinine?? Electrolytes?? Magnesium Level?? RBCs for Surgery?? Type and Screen?? Chest Portable (XR Chest Portable)?? What to do next Instructions From Your Doctor ?? Orders? 01/08/25 14:58:00 EST?? You Need to Schedule the Following Appointments Follow Up with??John Hutson MD When:??03/17/2025 02:45 PM EDT Where: [address] [place] [address] [place] [address]- Follow Up with??ECHO When:??03/07/2025 09:00 AM EDT Where: [address] [place] [address], 1st Floor Cardiology Department [place] [address]- [phone] Follow Up with??[facility] When:??01/29/2025 01:30 PM EDT Where: [address] [facility] [address] [place], [place] [phone] Follow Up with??Haresh CALVILLO, John When:??01/28/2025 09:15 AM EDT Where: [address] [facility] [place] [address]- Follow Up with??Aldo Westfall When:??In 0 days Where: [address], [address] [place] [address]- Business (1) Discharge Medications MATHEW ODELL :1945 Visit Date:01/07/2025 Medications: Please continue your medications until treatment is completed or stopped by your provider. Medications not listed below should be discontinued. Discuss any questions related to medications with your provider. What How Much When Instructions Next Dose Unchanged apixaban (Eliquis 2.5 mg oral tablet) 1 tab(s) Oral Twice a day tonight at 9 pm Unchanged Ascorbic Acid (Vitamin C) Oral Daily resume your home regimen Unchanged Atorvastatin (atorvastatin 80 mg oral tablet) 1 tab(s) Oral Daily tomorrow in am Unchanged BuPROpion (BuPROPion (Eqv-Wellbutrin SR) 150 mg/ 12 hours oral tablet, extended release) 1 tab(s) Oral Daily tomorrow in am Unchanged Docusate (Docusate Sodium Capsule) 100 Milligram Oral Twice a day resume your home regimen Unchanged Famotidine (famotidine 20 mg oral tablet) 1 tab(s) Oral Daily at Bedtime tomorrow Unchanged Ferrous Sulfate (Ferrous Sulfate EC) home med Unchanged Insulin Glargine (insulin glargine 100 units/ mL subcutaneous solution) 32 unit(s) Subcutaneous Injection Daily before lunch tomorrow before lunch Unchanged Magnesium Amino Acids Chelate (magnesium amino acids chelate (as elemental magnesium) 133mg oral tablet) home med Unchanged Metoprolol (metoprolol 25 mg oral tablet) 0.5 tab(s) Oral Twice a day resume your home regimen Unchanged Multivitamin (Multi Vitamin+) home med Unchanged Denver-3 Polyunsaturated Fatty Acids (Fish Oil) Oral resume your home regimen Unchanged Sertraline (sertraline 100 mg oral tablet) 1 tab(s) Oral Twice a day tonight at 9 pm Unchanged torsemide (torsemide 20 mg oral tablet) 1 tab(s) Oral Daily tomorrow in am Prescription Given During Visit No new medications prescribed at time of discharge.?? Laboratory Results Below is a partial list of the most recent Laboratory test results done prior to this discharge. You may have had other tests and procedures not included in this list. Please discuss all test resultswith your provider. RBC Available - RE (01/07/2025) RBC Unit ID - [id number] (01/07/2025) BUN (01/08/2025) ???BUN - 34 mg/dL CBC w/ Differential (01/08/2025) ???WBC - 7.9 k/mm3???RBC - 3.77 m/mm3???Hgb - 11.8 Gm/dL???Hct - 35.9 %???MCV - 95.2 femtoliters???MCH - 31.3 pg???MCHC - 32.9 Gm/dL???Platelet Count - 164 k/mm3???RDW-SD - 47.4 femtoliters???MPV - 10.9 femtoliters???Nucleated RBC (Automated) - 0.0 #/100 WBC'S???Abs. NRBC - 0.0 k/mm3???Abs. Neut - 6.1 k/mm3???Abs. Lymph - 1.0 k/mm3???Abs. Hays - 0.7 k/mm3???Abs. Eo - 0.2 k/mm3???Abs. Baso - 0.0 k/mm3???Neut % - 76.6 %???Lymph % - 12.4 %???Hays % - 8.2 %???Eos % - 2.1 %???Baso % - 0.3 %???Imm Gran - 0.4 %???Abs. Imm Gran - 0.0 k/mm3 Creatinine (01/08/2025) ???Creatinine-Blood - 1.94 mg/dL???Estimated GFR Creatinine - 34 ML/MIN/1.73 M2 Electrolytes (01/08/2025) ???Sodium - 142 mmol/L???Potassium - 4.6 mmol/L???Chloride - 102 mmol/L???Bicarbonate Level - 30 mmol/L???Anion Gap - 10 mmol/L GLUCOSE POC (01/08/2025) ???Glucose, POC - 263 mg/dL Hgb + Hct (01/07/2025) ???Hgb - 11.7 Gm/dL???Hct - 35.2 % Magnesium Level (01/08/2025) ???Magnesium - 2.2 mg/dL POC Hemochron ACT-LR (01/07/2025) ???POC ACT-LR - 343.0 seconds ProBNP (01/07/2025) ???Nt-Probnp - 3474 pg/mL You will be contacted within 72 hours with your results. Allergies (NKA means No Known Allergies) NKA Problems Active Problems??(2) CAD (coronary artery disease)?? Obese class I?? Education Materials Below is the list of Educational Leaflet Providered with your Discharge Instructions. [employer] Patient Education - TAVR Discharge Instructions?? Valuables and Belongings I fully understand and agree that [facility] accepts no responsibility for all my personal property including clothing, toilet articles, radios, jewelry, dentures, hearing aids, rings, money, or any other property that is in my possession or is brought to me after admission. I understand certain valuables may be placed in a hospital safe for a short period of time. I understand that the hospital is not liable for loss or damage due to accident, fire, or other natural occurrence while said property is in the safe. I accept full responsibility for any personal property that I keep with me, and will not hold the hospital responsible in case of loss or disappearance. I acknowledge that i have been encouraged to send valuables and belongings home. ?? Review of Valuable and Belonging List: With patient Date for Pt to Sign Valuables/Belongings: 01/08/25 01:22:00 ?? Other Discharge Information ? Pulmonary Rehab Status?? Pulmonary Rehab Discharge Status?? CPAP/BiPAP Mask Type: Full CPAP/BiPAP Mask Size: Medium Respiratory Rate: 17 br/min ? Cardiac Rehab Assessment?? Cardiac Rehab Inpatient Assessment?? Comments-Education: POST TAVR EDUCATION Comments-Exercise Activity: PROGRESSIVE AMBULATION Comments-Nutrition: PER RD Comments-Stress Management: COPING MECHANISMS Comments-Lipids: DIET, EXERCISE, MEDICATION Comments-Other plan of care: ENCOURAGE CARDIAC REHAB PHASE 2 Common Emergency Awareness Tips IS IT A STROKE? Act FAST and Check for these signs: FACE Does the face look uneven? ARM Does one arm drift down? SPEECH Does their speech sound strange? TIME Call at any sign of stroke ?? Heart Attack Signs Chest discomfort: Most heart attacks involve discomfort in the center of the chest and lasts more than a few minutes, or goes away and comes back. It can feel like uncomfortable pressure, squeezing, fullness or pain. Discomfort in upper body: Symptoms can include pain or discomfort in one or both arms, back, neck, jaw or stomach. Shortness of breath: With or without discomfort. Other signs: Breaking out in a cold sweat, nausea, or lightheaded. Remember, MINUTES DO MATTER. If you experience any of these heart attack warning signs, call to get immediate medical attention! ?? Smoking can increase your chances of developing chronic health problems and can cause harmful effects to other family members in your house. If you smoke, you are strongly encouraged to quit. Please call [facility] [employer] Link at [phone] or [phone] ([phone]) or log in to [email or web address] for referrals to smoking cessation programs. ?? 196 Suicide & Crisis Lifeline is available 29/05 if you or someone you know needs to find a reason to keep living. By calling 018 you'll be connected to a skilled, trained counselor at a crisis center in your area. INPATIENT DISCHARGE INSTRUCTIONS SIGNATURE PAGE MATHEW ODELL Location:[facility] Registration Date and Time:01/07/2025 09:56 EST Primary Care Physician: Aldo Westfall MD, Attending Physician: Rosanne CALVILLO, [facility], I MATHEW ODELL, have received the above patient education materials/instructions and have verbalized understanding. If ambulance or transport services are being used I further acknowledge being given a choice of service. ?? If you need to contact me, please call me at this number: . Patient/Legislative Assistant Name: Patient/Legislative Assistant Signature: Relationship to Patient: Witness Name/Signature: Date: * Sue Navarro: PERFORM, SIGN, VERIFY Event Display: Patient Education Handout Authored Date: [id number] * Larisa Medeiros NP: PERFORM Event Display: Patient Education Leaflets Authored Date: [id number] TAVR Discharge Instructions ?? 298 TAVR Discharge Instructions Call 911 if: ??? If you develop a new onset of confusion, weakness or tingling on one side, numbness, slurred speech or difficulty speaking, loss of vision ??? If you develop numbness, tingling, loss of sensation, and/or coolness to your arms or legs. ??? If you develop chest pain or discomfort that is not relieved with rest. ??? If uncontrolled bleeding occurs, hold pressure to the site and call 911. ?? Call your fisher seal office if you experience any of the following: ??? Temperature of 101 or greater, chills, sweating ??? Any bleeding or swelling at the incision site or if a hard lump forms. ??? Any signs of infection at incision site including drainage, redness or tenderness, odor, or the edges of your procedure site are pulling apart or opening. ??? If you experience any new rash, cough, dizziness, or leg cramps. ??? Changes in breathing, chest pain, abnormal pain, dizziness, change in pulse, pulse rate or palpitations, nausea, vomiting. ??? You gain 2 pounds in one day or 5 pounds in 1 week. ?? Follow up: A follow up appointment should be made with your doctor. Follow up care is important; it is strongly encouraged for you to keep your appointment. You may have more than one appointment including one with the social studies teacher who performed your procedure and your fisher seal. ??? Follow up appointments are generally scheduled at 2 weeks for an incision check, either with your primary fisher seal or a member of our heart valve team. ??? Additional follow ups occur with the social studies teacher who performed your procedure within 4 to 6 weeks and then again at 1 year. ??? o An EKG, echocardiogram, and labs will also be obtained before these two follow up visits If you do not have an appointment scheduled already in your discharge packet, please call and make an appointment when you get home. If you have any questions, please call the office of the social studies teacher who performed your procedure. ?? Valve identification card: You will receive a permanent card in the mail in 8-10 weeks. This identification card should be carried with you at all times. ?? If you go home with a 28 day monitor after your procedure: ??? The monitor will be applied to you prior to your discharge. ??? Each monitor is good for 14 days, a new monitor will be sent to your home address on file at day 12 ??? If you have any specific questions or concerns in regard to your monitor, please call the company: [employer]: ?? Bathing: ??? You can take a shower using a mild soap after you are discharged from the hospital. ??? Avoid soaking in water such as tub baths, swimming pools or hot tubs until you are cleared by your doctor to do so. ?? Incision Care: ??? Look at your procedure site every day until it is completely healed. o Check your procedure site daily for redness, odor, or drainage/bleeding. o You may have a small bump where the catheter was put in, if the bump gets larger, please notify your fisher seal. o You may see bruising at the procedure sites but this is normal. ??? It is important to keep incision sites clean and dry. o Avoid usi ng any perfumed soaps, lotions, creams, oils or ointments as these may irritate the site and could put you at risk for infection. ?? Activity: ??? Review the written materials given to you by the Cardiac Rehabilitation staff for your specificexercise program. ??? No heavy lifting over 10 pounds (gallon of milk) for 1 week. ??? Gradually increase your activity. Remember to alternate periods of activity with periods of rest. ??? It is important to continue to do the coughing and deep breathing exercises to help prevent breathing complications. ??? Take your temperature every day for the next 3-5 days. ??? Weigh yourself at the same time every morning. ?? Cardiac Rehabilitation: Cardiac rehabilitation is an outpatient medically supervised exercise program. Participating in a cardiac rehabilitation program is highly encouraged, as this is essential to your recovery process. ??? Cardiac rehabilitation typically starts 2 to 3 weeks after discharge. ??? If attending [facility]???s program, you should leave the hospital with an orientation appointment already arranged. A cardiac rehab facility other than [facility] may require a referral from your fisher seal. ?? Driving: ??? You should not drive for 2-3 days after you are discharged from the hospital. ?? Dental Cleaning/Procedures post TAVR ??? You will need an antibiotic prior to future dental cleanings and procedures to prevent against bacteria from attaching to your new heart valve (This is calledinfective endocarditis). ??? If you have developed any signs and/or symptoms of endocarditis pleasecall your fisher seal. ??? Symptoms of endocarditis include : ?? o Flu-like symptoms, such as fever, chills, night sweats tiredness, muscle and joint aches, and headache. o Trouble breathing, cough,nausea and vomiting. o Swelling of the feet, legs, and belly. ?? * Event Display: Hemodynamic Procedure Report Authored Date: History and physical note * Event Display: History and Physical Hospital Authored Date: * Eliu Ray MD: PERFORM Priscilla Kramer: MODIFY, MODIFY AdelePriscilla bronson: MODIFY Event Display: History and Physical Hospital Authored Date: [id number] Patient: ??MATHEW ODELL ? Age:??79 Years?Sex:??Male?:??1945? SURGICAL HISTORY AND PHYSICAL ?? DATE:?? 01/07/2025 ? Environmental Technical Officer:?? Dr. Stefan Hutson ?? Chief Complaint Dyspnea and easy fatigability with exertion ?? History of Present Illness Mathew Odell??is an 79-year-old white male??whose cardiovascular history is remarkable for??hypertension, hyperlipidemia,??multivessel coronary artery disease??(s/p four-vessel??coronary artery bypass grafting in 2019),??ischemic cardiomyopathy,??congestive heart failure,??paroxysmal??atrial fibr illation,??and aortic valve stenosis.?? Over the last 9 months, he has noted the progressive onset of dyspnea and easy fatigability with exertion.?He denies symptoms of shortness of breath at rest, chest pain, chest pressure,??dizziness, lightheadedness, near-syncope or syncope.?? He currently has [place] Heart Association class III symptoms of heart failure. ?? Due to his progressive symptomatology, he underwent an echocardiogram on??10/16/2024.?This studydemonstrated a low normal??left ventricular ejection fraction??estimated at 50 to 55%. ??There was mild left ventricular hypertrophy present with elevated filling pressures. ??The left atrium was mode rately dilated. ??The peak gradient across the aortic valve was 32 mmHg while the mean gradient was19 mmHg. ??His aortic valve area was reduced to only??0.72??cm??.?These findings were consistentwith??low-flow, low gradient, severe aortic valve stenosis. ?? He subsequently underwent cardiac catheterization with coronary angiography on 11/28/2024.?? This study demonstrated??normal systemic pressures and a mildly elevated left ventricular end-diastolic pressure.?? At the time of this procedure, the mean gradient across his aortic valve??was??measured at 34 mmHg and his aortic valve area was calculated reduced to??0.9 cm??.?? The findings were again??consistent with low-flow, low gradient, severe aortic valve stenosis. ??Coronary angiography demonstrated a left dominant circulation.?? The right coronary artery was small, with a 70% ostial stenosis.?? There was a high- grade stenosis of the distal left main coronary artery involving the trifurcation??of the left anterior descending, ramus ramus and circumflex coronary arteries.?? The previously placed left internal mammary artery graft to the left anterior descending coronary artery was widely patent??as were the previously placed grafts to the??ramus,??left posterior descending artery??and diagonal coronary arteries. ?? His past medical history is otherwise remarkable for obesity,??type 2 diabetes mellitus,??pulmonaryasbestosis,??chronic obstructive pulmonary disease,??chronic hypoxemia,??pulmonary nodules,??chronic restrictive lung disease,??chronic respiratory failure??and pulmonary fibrosis.?? He requires chronic nasal oxygen therapy for ambulation. ?? His past surgical history is remarkable for coronary artery bypass grafting??x 4 in 2019.?At thetime of surgery, the left internal mammary artery was placed to the left anterior descending coronary artery??and??reversed saphenous vein??grafts were placed to the??ramus,??left posterior descending and diagonal coronary arteries. ??He has also undergone a transurethral resection of the prostate for benign prostatic hypertrophy. ?? He is a former cigarette smoker.?? He stopped smoking several decades ago. ??His total smoking history??is??10 pack years.?? He is a former??user of alcohol. ??He reports having stopped drinking??alcohol in 1989. ?? Due to his progressive symptomatology, and the finding of??severe aortic valve stenosis on both echocardiography and cardiac catheterization, he presents to??cardiac surgery clinic today to discuss options for replacement of his aortic valve. ?? Review of Systems Cardiac: Symptoms of congestion: No Symptomatic hypotension: No Symptoms of ischemia: No Constitutional:?? Recent infection: No; no fever, no chills Unintentional weight loss/cachexia: No Respiratory: Symptomatic primary lung disease: No; No cough, No shortness of breath? All other systems are negative unless noted above. ?? Physical Exam ?Vitals & Measurements ?T:??98.3?F?? HR:??84??(Peripheral)?? RR:??20?? BP:??110/66?? SpO2:??95%?HT:??177??cm?? WT:??104.5??kg?? BMI:??33.36?? Cardiac: No jugular venous distension 1+ peripheral edema?? Irregularly irregular??heart??rhythm He??has equal but diminished??1+??carotid pulses bilaterally??with no carotid bruits. He??has 1+??leg edema. General Appearance:??Obese body habitus Eyes:??Non-icteric Pulmonary:??Normal respiratory effort. Clear to auscultation. No wheezing, rales or rhonchi Cardiac:??Irregularly irregular??rate and rhythm, II/ mid-to-late??systolic murmur heard best at the upper??right sternal border, no S3 present. Sternum is stable on palpation. ??Well-healed??priorsternal incision. Vascular: 1+ femoral pulses bilaterally Gastrointestinal:??Obese, soft, non-tender, no obvious ascites Musculoskeletal:??No overt mechanical limitations on movement and mobility Skin:??Intact, no rashes Neurological:??Alert and oriented, no gross deficits Psychiatric:??Appropriate mood and affect? Assessment/Plan ?? Mathew Marc??is an 79-year-old white male??who presents with a 9-month history of progressive symptoms of dyspnea??and easy fatigability with exertion.?? His workup, including both an echocardiogram and cardiac catheterization,??demonstrates the presence of low-flow, low gradient, severe aorticvalve stenosis. ?? Based on his medical comorbidities, I have calculated his STS risk score for mortality with repeat??sternotomy and open??aortic valve replacement at??5.9%.?? Based on this finding, I have recommendedto him that he undergo a transcatheter aortic valve replacement to reduce his periprocedural risk of morbidity and mortality.?? He is in agreement with this plan. ?? I have reviewed the planned procedure of transcatheter aortic valve replacement with the patient??preprocedure.?? I have also reviewed the potential complications of the procedure which include but are not limited to:??bleeding, infection,??arrhythmias, stroke,??myocardial infarction,??congestive heart failure,??heart block requiring pacemaker placement??and .?? He understands these risks and wishes to proceed??with transcatheter aortic valve replacement. ? Eliu Ray M.D.? Problem List/Past Medical History Ongoing ?CAD (coronary artery disease) ??Obese class I ?? Medications ??atorvastatin 80 mg oral tablet, 80 mg= 1 tablet, By Mouth, Daily ??Docusate Sodium Capsule, 100 mg= 1 capsule, By Mouth, 2 times a day ??Eliquis 2.5 mg oral tablet, 2.5 mg= 1 tablet, By Mouth, 2 times a day ??famotidine 20 mg oral tablet, 20 mg= 1 tablet, By Mouth, Daily ??Ferrous Sulfate EC ??Fish Oil, By Mouth ??insulin glargine 100 units/mL subcutaneous solution, 30 units= 0.3 mL, Subcutaneous Injection, Daily before lunch ??magnesium amino acids chelate (as elemental magnesium) 133 mg oral tablet ??metoprolol 25 mg oral tablet, 12.5 mg= 0.5 tablet, By Mouth, 2 times a day ??Multi Vitamin+ ??sertraline 100 mg oral tablet, 200 mg= 2 tablet, By Mouth, Daily ??torsemide 20 mg oral tablet, 20 mg= 1 tablet, By Mouth, 2 times a day before breakfast and dinner ?Vitamin C, By Mouth, Daily ?? Allergies NKA ?? Social History Alcohol ??Use: Never. 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 Exercise ??Self assessment: Poor condition. Home/Environment ??Living situation: Home/Independent. Lives with: Spouse. Substance Abuse ??Use: Never. Tobacco ??Use: Never (less than 100 in lifetime). EKG study * Event Display: ECG 12-Lead Authored Date: [id number] Please click on pdf link to open report * Event Display: ECG 12-Lead Authored Date: [id number] Ventricular Rate: 84 BPM QRS Duration: 116 ms Q-T Interval: 398 ms QTC Calculation(Bazett): 470 ms R [place]: -37 degrees T [place]: 104 degrees Atrial fibrillation Left axis deviation Incomplete left bundle branch block Minimal voltage criteria for LVH, may be normal variant ( Enrique product ) Abnormal QRS-T angle, consider primary T wave abnormality Abnormal ECG When compared with ECG of 07-Jan-2025 14:21, No significant change was found Confirmed by ALLISON SMITH MD ([id number]) on 01/08/2025 11:28:40 AM [place]: ALLISON SMITH MD * Event Display: ECG 12-Lead Authored Date: [id number] Please click on pdf link to open report * Event Display: ECG 12-Lead Authored Date: [id number] Ventricular Rate: 70 BPM Atrial Rate: 84 BPM QRS Duration: 130 ms Q-T Interval: 454 ms QTC Calculation(Bazett): 490 ms R [place]: -50 degrees T [place]: 82 degrees Atrial fibrillation Left axis deviation Non-specific intra-ventricular conduction block Abnormal ECG When compared with ECG of 07-Jan-2025 13:29, No significant change was found Confirmed by Aldo Gandhi ([id number]) on 01/07/2025 2:56:09 PM [place]: Aldo Gandhi * Event Display: ECG 12-Lead Authored Date: [id number] Please click on pdf link to open report * Event Display: ECG 12-Lead Authored Date: [id number] Ventricular Rate: 67 BPM Atrial Rate: 58 BPM QRS Duration: 128 ms Q-T Interval: 452 ms QTC Calculation(Bazett): 477 ms R [place]: -48 degrees T [place]: 82 degrees Atrial fibrillation Left axis deviation Non-specific intra-ventricular conduction delay Abnormal ECG When compared with ECG of 04-Mar-2025 10:02, QRS duration has increased Confirmed by Aldo Gandhi ([id number]) on 01/07/2025 2:18:10 PM [place]: Aldo Gandhi Heart * Event Display: Echocardiogram - Complete Authored Date: [id number] Transthoracic Echocardiography Report (TTE) Patient Demographics Patient Name MATHEW ODELL Date of Study 01/08/2025 Corporate Gender Male Facility Race .[id number] Ethnicity Date of 1945 Height: 70.08 inches Age 79 year(s) Weight: 240.31 pounds Accession Number [id number] BSA: 2.26 m2 Room Number [id number] BMI: 34.4 kg/m2 Referring Lincoln Orourke, Physician Physician [employer] Marina KEE Heather Indications Aortic stenosis and Prosthetic valve function. Clinical History Coronary artery disease. Previous CABGx4 2018 COPD. Obesity. Former tobacco use. Hypertension. Hypercholesterolemia. Dyslipidemia. Atrial fibrillation. Previous aortic valve replacement (TAVR29 mm Evolut FX) 01/07 2025 Study Data Type of Study TTE procedure:Echo Complete-(Doppler, Colorflow) with Contrast. Procedure Information:Definity was administered by Impregnating Tank Operator . TAVR post op day 1 Study Date01/08/2025 Start Time: 06:58 AM Study Location: [facility] [place] Echo Study Status: Bedside Patient Status: Routine Technical Quality: Technically difficult due to obesity. Blood Pressure:152/92 mmHg EKG: Atrial fibrillation HR: 86 bpm Contrast Medium: Definity. Amount - 2 ml Allergies - No known allergies. 2D Measurements LV Diastolic Dimension: 3.69 cm LV Systolic Dimension: 2.51 cm LV Septum Diastolic: 1.5 cm LV PW Diastolic: 1.4 cm AO Root Dimension: 3 cm LA Dimension: 5.1 cm LVOT Stroke Volume: 53.38 ml LVOT: 2 cm Stroke Volume Index23.62 ml/m2 Ascending Aorta:3.1 cm Cardiac Index:2.03 l/min/m2 Doppler Measurements AV Peak Velocity: 165 cm/s MV Peak E-Wave: 138 cm/s AV Peak Gradient: 10.89 mmHg AV Mean Gradient: 9 mmHg MV P1/2t: 58 msec AV VTI:34 cm MV Mean Gradient: 2 mmHg LVOT Peak Velocity: 119 cm/s MV Area (continuity): 1.87 cm2 LVOT VTI17 cm MV Deceleration Time: 198 msec AV Area (Continuity):1.57 cm2 MV Area (PHT): 3.79 cm2 TR Velocity:291 cm/s PV Peak Velocity: 110 cm/s TR Gradient:33.87 mmHg PV Peak Gradient: 4.84 mmHg Estimated RAP:3 mmHg Estimated RVSP: 36.9 mmHg Cardiac Anatomy Left Ventricle/Interventricular Septum The left ventricular size is normal to small. The left ventricular wall thickness is moderately increased in a pattern of concentric hypertrophy. Overall left ventricular systolic function is normal. LVEF 60-65%. There are no definite wall motion abnormalities. Unable to assess diastolic function due to atrial fibrillation. Left Atrium/Interatrial Septum The left atrium is poorly visualized. The left atrium is severely dilated. Aortic Valve There is a bioprosthesis (DERRICK 29mm Evolut FX) well-seated in the aortic position. There is trace paravalvular aortic regurgitation. No evidence of prosthetic aortic stenosis or central regurgitation. The aortic valve mean gradient is 9 mmHg. Mitral Valve The mitral valve appears mildly thickened. No significant mitral stenosis or regurgitation. Aorta The ascending aorta and aortic root are normal in size. Right Ventricle The right ventricle is poorly visualized. Right Atrium The right atrium is poorly visualized. The right atrium is dilated. Pulmonic Valve The pulmonic valve is poorly visualized. There is mild to moderate pulmonic regurgitation. Tricuspid Valve The tricuspid valve is poorly visualized. There is at least moderate tricuspid valve regurgitation. Pumonary Artery The pulmonary artery systolic pressure estimation is normal, 37 mmHg. Venous Structures The inferior vena cava size is normal with normal inspiratory collapse. The central venous pressure estimation is normal, 3mmHg. Pericardium/Extracardiac There is no significant pericardial effusion. Summary The left ventricular size is normal to small. The left ventricular wall thickness is moderately increased in a pattern of concentric hypertrophy. Overall left ventricular systolic function is normal. LVEF 60-65%. There are no definite wall motion abnormalities. Unable to assess diastolic function due to atrial fibrillation. The right ventricle is poorly visualized. The left atrium is severely dilated. The right atrium is dilated. There is a bioprosthesis (DERRICK 29mm Evolut FX) well-seated in the aortic position. There is trace paravalvular aortic regurgitation. There is mild to moderate pulmonic regurgitation. There is at least moderate tricuspid valve regurgitation. The central venous pressure estimation is normal, 3mmHg. The pulmonary artery systolic pressure estimation is normal, 37 mmHg. There is no significant pericardial effusion. Comparison Comparison is made to the study of January 07, 2025. Image quality better on the current study. Signature * Event Display: Echocardiogram - Complete Authored Date: [id number] * Event Display: Echocardiogram - Complete Authored Date: [id number] Transthoracic Echocardiography Report (TTE) Patient Demographics Patient Name MATHEW ODELL Date of Study 01/07/2025 Corporate Gender Male Facility Race .[id number] Ethnicity Date of 1945 Height: 70.08 inches Age 79 year(s) Weight: 240.31 pounds Accession Number [id number] BSA: 2.26 m2 Room Number [id number] BMI: 34.4 kg/m2 Referring Teresa URRUTIA Interpreting Ashok Orourke Physician Physician Feather Renovator Alessandro Pinto Indications S/P aortic valve replacement (AVR). Clinical History Hypertension. Hyperlipidemia. Multivessel Coronary artery disease S/P CABG X4 2019 Paroxsymal Atrial fibrillation. Hx S/P TAVR 29mm Evolut Fx Study Data Type of Study TTE procedure:Echo 2D Limited or Follow-up, Colorflow, Doppler Follow-up or Limited. Procedure Information:29mm Evolut Fx Study Date01/07/2025 Start Time: 12:39 PM Study Location: [facility] [place] Adult Echo Study Status: ICU/CCU Patient Status: STAT Technical Quality: Technically difficult due to patient supine. Blood Pressure:94/55 mmHg EKG: Atrial fibrillation HR: 70 bpm Allergies - No known allergies. 2D Measurements LVOT Stroke Volume: 89.08 ml LVOT: 2.4 cm Stroke Volume Index39.42 ml/m2 Cardiac Index:2.76 l/min/m2 Doppler Measurements AV Peak Velocity: 152 cm/s AV Peak Gradient: 9.24 mmHg AV Mean Gradient: 3 mmHg AV VTI:26 cm LVOT Peak Velocity: 101 cm/s LVOT VTI19.7 cm AV Area (Continuity):3.43 cm2 Cardiac Anatomy Aortic Valve The aortic valve is poorly visualized. There is a normally functioning bioprosthesis (DERRICK 29mm Evolut FX) in the aortic position. No evidence of prosthetic aortic stenosis, central or paravalvular regurgitation. The aortic valve mean gradient is 3 mmHg. Pericardium/Extracardiac There is no significant pericardial effusion. Summary There is a normally functioning bioprosthesis (DERRICK 29mm Evolut FX) in the aortic position. There is no significant pericardial effusion. Comparison No prior study available for comparison. Signature * Event Display: Echocardiogram - Complete Authored Date: Hospital Progress note * Nica Douglas RN: PERFORM, SIGN, VERIFY Event Display: Progress Note Hospital Authored Date: Patient: MATHEW ODELL Age: 79 years Sex: Male : 1945 Associated Diagnoses: None Author: Stella WYNN, Nica Findings Narrative/Incidental CPAP on overnight, otherwise on 3L- says he has been wearing his multi function CPAP at home more frequently- including day usage. POC 244 at pm 4 units SS given, repeat in AM 173. Pt noted to have new crackles in bilat upper lobes- cardiac surg CANDELARIO Leslie Santoro notified- CXR ordered folowed by 1x dose lasix. Pt voiding appropriately in urinal. bilat groin dressings CDI. . Discharge Information Pulmonary Rehab Discharge : Pulmonary Rehab Discharge Status 01/08/2025 4:13 EST CPAP/BiPAP Mask Type Full CPAP/BiPAP Mask Size Medium 01/07/2025 23:18 EST CPAP/BiPAP Mask Type Full CPAP/BiPAP Mask Size Medium * Christopher Vicente: MODIFY, VERIFY, MODIFY, SIGN, SIGN, SIGN, PERFORM Event Display: Progress Note Hospital Authored Date: Patient: MATHEW ODELL Age: 79 years Sex: Male : 1945 Associated Diagnoses: None Author: Christopher Vicente 79 yo M PMHx of severe who presents for elective TAVR with Dr. Lay and Dr. Castro S/p TF-TAVR - 29 mm S3 Bioprosthetic Valve At this time, patient denies any significant complaints. No significant chest pain or shortness of breath. Post-procedure, vital signs remain stable and in normal sinus rhythm. Neurologically intact. Groinsremain non-tender to palpation without firmness of hematoma. S/P TAVR, Neuro: - Encourage activity when able - Wellbutrin - Zoloft Cardiac: - Rhythm: NSR rates in the 60s - TVP to stay in place for 2 hours post deployment (2:30PM, please obtain EKG at 2:15) - Eliquis 2.5mg BID - Lipitor 80mg daily - Daily EKG - Torsemide 20mg daily - Post TAVR Echo ordered - ZIO Monitor on D/c Pulm: - Encourage OOB, IS GI: - PPI for GI prophylaxis - Resume diet. Renal: - Strict I/Os, Daily weights - Daily BMPs ID: - Con't abx per post-operative protocol Endocrine: DMII - Lantus 32U daily - ISS ordered tx to floor when able. Patient Care team information Care Team Personnel Name: Nguyen Milton CNM Position: Reference Physician Member Role: Primary Care Nurse Address: [address] [place] [phone]- Telecom: Name: July Duncan RN Position: S SN RN Member Role: Primary Care Nurse Name: Megan Geiger RN Position: S RN Member Role: Primary Care Nurse Name: Violet Francisco RN Position: S SN RN Member Role: Primary Care Nurse Name: Agustín Lala DO Position: [facility] Renal MD Member Role: Lifetime Consulting Physician Address: [address] [facility] [place] [address]- Telecom: Name: Aldo Westfall MD Position: Reference Physician Member Role: PCP Address: [address], [address] [place] [address]- Telecom: Name: Elle Rachel RN Position: S RN Member Role: Primary Care Nurse Name: Elicia Gimenez RN Position: S RN Member Role: Primary Care Nurse Name: Hawa De Guzman Position: [facility] AMB Nurse Member Role: Lifetime Consulting Physician Care Team Related Persons Name: FRANCISNANETTE MARQUES Insurance Providers Guarantor name: MATHEW ODELL Health Plan Information #: 1 Payer: MEDICARE A INPT 25 Member Number: [id number] Policy Number: NA Group Number: NA Health Plan Information #: 2 Payer: [employer]FF[employer] SUP Member Number: [id number] Policy Number: NA Group Number: NA
--- OUTSIDE RECORDS SUMMARY | 2025-01-28 09:22 | XMS_ITS | Encounter Summary ---
Author Name [facility] Address [address] [place] [id number] Care Team Providers Care Family Practice Physician Assistant Name Role Phone JUANITA BIRCH Primary Care [...] Name Patient's Relationship to Policy [facility] MEDICARE SUPPLEMEN HANS [place] IND Nov 06, 2016 MEDICAR E SUPPLEM E [id number] Rao ODELL PATIENT MEDICARE (WNR) MEDICARE (M) PART A May 06, 2008 PART A [id number] [facility] [phone] Rao ODELL PATIENT MEDICARE (WNR) MEDICARE (M) PART B May 06, 2008 PART B [id number] [facility] [id number] Rao ODELL PATIENT MEDICARE (WNR) MEDICARE (M) PART A May 06, 2008 PART A [id number] Rao ODELL PATIENT MEDICARE (WNR) MEDICARE (M) PART B May 06, 2008 PART B [id number] Rao ODELL PATIENT Selected Encounter This [...] 2 diabetes mellitus with hyperglycemia IDA WONG [place] Plan of Treatment: Future Appointments (+ 6 months) and Future Tests (+/- 45 days) The Plan of Treatment section includes [facility] care activities for the [facility] This section includes future appointments and future orders which are active, pending or scheduled. Future Appointments This section includes appointments that were scheduled to occur 6 months from the date of the Encounter, up to a maximum of 20 appointments. The data comes from all [place] treatment [facility]. Appointment Date/Time Appointment Type Appointme nt Facility Name Feb 07, 2024 09:30 AM AMBULATORY - MEDICINE [facility] Mar 04, 2024 09:00 AM [facility] Apr 15, 2024 09:00 AM [facility] [...] of theEncounter. The data comes from all [facility]. Test Date/Time Test Type Test Details Facility Name Mar 04, 2024 12:00 AM Laboratory - Chemistry Order HEMOGLOBIN A1C PANEL BLOOD (LAV-BLOOD) [facility] Mar 04, 2024 12:00 AM Laboratory - Chemistry Order CREATININE (eGFR 2020) BLOOD (SST-SERUM) [facility] Social History: Smoking Status (Most current) and Tobacco Use (All prior to encounter date) This section includes the most current, and the historical, smoking and tobacco- related health factors from the [place] facility where the Encounter took place. Current Smoking Status This section includes the most current smoking, or tobacco-related health factor, from the [facility] where the Encounter took place. Date/Time Current Smoking Status Comment Facil ity Sep 05, 2023 10:00 AM VA-TOBACCO QUIT 15 YRS OR MORE [place] Tobacco Use History This section includes a history of the smoking, or tobacco-related health factors, that were collected on or before the date of the Encounter. The data comes from the [place] facility where the Encounter took place. Date/Time Smoking Status/Tobacco Use Comment F acility Sep 05, 2023 10:00 AM VA-TOBACCO NEVER USED [place] Sep 05, 2023 10:00 AM VA-TOBACCO QUIT 15 YRS OR MORE [place] Sep 08, 2022 11:30 AM VA-TOBACCO FORMER USER [place] Sep 08, 2022 11:30 AM VA-TOBACCO QUIT 15 YRS OR MORE [place] Jul 08, 2021 09:30 AM VA-TOBACCO FORMER USER [place] Jul 08, 2021 09:30 AM VA-TOBACCO QUIT 15 YRS OR MORE [place] May 28, 2020 10:04 AM VA-TOBACCO NEVER USED [place] May 29, 2018 09:51 AM VA-TOBACCO FORMER USER [place] May 29, 2018 09:51 AM VA-TOBACCO QUIT 15 YRS OR MORE [place] May 29, 2018 09:39 AM LIFETIME NON-TOBACCO USER [place] May 04, 2017 02:38 PM QUIT TOBACCO USE > 7 YEARS AGO [place] Apr 28, 2016 10:02 AM QUIT TOBACCO USE > 7 YEARS AGO smoked for 4 years about 2 pack a week quit 50 years ago [place] Aug 20, 2013 09:48 AM QUIT TOBACCO USE > 7 YEARS AGO 22 yo [place] Encounter Notes: All associated encounter notes This [...] empagliflozin and will fax RX to the [place]. Will ask [facility] to please obtain visit records from Dr. Aldo Westfall . Will f/u with pt on the telephone next week to discuss further. Thank you! /celina/ Ida Wong PharmD Clinical Pharmacy Practitioner Signed: 01/31/2024 14:03 Receipt Acknowledged By: 02/05/2024 11:51 /celina/ TY WU [employer] Equipment Repairer == --- Original Document --- 01/30/24 PHARMACY [...] of Preventive Care: Most recent visit to parking supervisor: none; counseled Most recent visit to [...] Progress note requested /celina/ TY WU [employer] Equipment Repairer Signed: 01/31/2024 15:25 IDA WONG Jan 30, 2024 08:52 AM PHARMACY OUTPATIEN T NOTE: LOCAL TITLE: PHARMACY CLINIC NOTE STANDARD TITLE: PHARMACY OUTPATIENT NOTE DATE OF NOTE: JAN 30, 2024@08:52 ENTRY DATE: JAN 30, 2024@08:52:06 AUTHOR: IDA WONG COSIGNER: URGENCY: STATUS: COMPLETED PHARMACY CLINIC NOTE Has ADDENDA Known Allergies: Patient has answered NKA MATHEW NICHOLSNIS CASS presented for diabetes management treatment. Subjective: referred [...] of Preventive Care: Most recent visit to parking supervisor: none; counseled Most recent visit to [...] Acknowledged By: 02/05/2024 11:51 /raul WU [employer]ven Equipment Repairer 01/31/2024 ADDENDUM STATUS: COMPLETED Progress note requested /raul WU [employer]ven Equipment Repairer Signed: 01/31/2024 15:25 02/05/2024 ADDENDUM STATUS: COMPLETED Pt has doctors appt in AM; requesting call in afternoon. /raul Wong PharmD Clinical Pharmacy Practitioner Signed: 02/05/2024 15:39 IDA WONG
== END 2025-01-28 10:20 | disposition home or self-care (01) ==
LOC: HO.HCS 08:46
PROVIDERS: PCP Family Medicine; Visit Provider Nurse Practitioner Family
DX: I35.0 Nonrheumatic aortic (valve) stenosis (principal); Z95.2 Presence of prosthetic heart valve; I48.0 Paroxysmal atrial fibrillation; I25.10 Atherosclerotic heart disease of native coronary artery without angina pectoris; I10 Essential (primary) hypertension; Z95.1 Presence of aortocoronary bypass graft; Z09 Encounter for follow-up examination after completed treatment for conditions other than malignant neoplasm
CPT/HCPCS: 93010; 99214; G2211

== ENCOUNTER 2025-02-07 11:50 | Day surgery (SDC) | payer MEDICARE, OTHER, SELFPAY ==
--- OUTSIDE RECORDS SUMMARY | 2025-02-03 15:35 | XMS_ITS | Continuity of Care Document ---
Author Name [facility] Organization [facility] Care Team Providers Care Hand Suture Winder Name Role Phone [facility] Unavailable Unavailable Problems Combined list of problems from 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 It does not include entries that were removed or entered in error. Problem Status Onset Date Problem Type Date of Resolution Comments Source Anxiety Active Condition [facility] Asbestosis Active Condition May 29, 018 Entered By: JUANITA BIRCH Comment: Dx NOV 2012 via Private PULMO: CXR, CT Thorax Done 2012 Entered By: JUANITA BIRCH Comment: Dx NOV [address] [facility] [place] [facility] Entered By: JUANITA BIRCH Comment: early scarring note but appeared not to beOct 2012 Entered By: JUANITA BIRCH Comment: progressive in nature back 2012 Entered By: JUANITA BIRCH Comment: Lung Bx done Via Cardi-Thoracic Surg [facility] (Dr Smith)Aug 20, 2013 Entered By: JUANITA BIRCH Comment: return [facility] DEC [facility]; doing PULMO Rehab at [facility] Aug Entered By: JUANITA BIRCH Comment: Attributable to Svc [place] 1960'sOct 2012 Entered By: JUANITA BIRCH Comment: no Lung CA as of Aug Entered By: JUANITA BIRCH Comment: Next Pulmo Eval NOV 29 [facility] Atrial fibrillation Active Condition Dec 18, 2024 Entered By: JUANITA BIRCH Comment: Seems To Be New Dx in DEC 31 per His Private Cardio;Dec 18, 2024 Entered By: JUANITA BIRCH Comment: DOAG [facility] DEC 31 [facility] Benign hypertension Active Condition [facility] Benign prostatic hyperplasia Active Condition Aug 20, 2013 Entered By: JUANITA BIRCH Comment: TURP NOV 2012; no Prostate CA [facility] Cataract Active Condition Aug 20 Entered By: JUANITA BIRCH Comment: Surg OU 2012 [facility] Chronic kidney disease stage 3 Active Condition Sep 03, 2024 Entered By: JUANITA BIRCH Comment: eGFR 31 in Aug Entered By: JUANITA BIRCH Comment: Diabetic Nephropathy [facility] Coronary artery disease Active Condition Oct 09, 2019 Entered By: JUANITA BIRCH Comment: CABG (3 vessel by-pass) ) [facility] Entered By: JUANITA BIRCH Comment: S&S Suspicious for ACS During Course of Pulmo Eval for Asbestosis [facility] Diabetes mellitus Active Condition 2019 Entered By: JUANITA BIRCH Comment: no DR as of NOV 25 [facility] Exposure to potentially hazardous substance Active Condition Sep 05, 2023 Entered By: JUANITA BIRCH Comment: Asbestosis [facility] Heart murmur Active Condition Apr 28, 2016 Entered By: JUANITA BIRCH Comment: Functional ?; no x [facility] History of colonoscopy Active Condition Aug 20, 2013 Entered By: JUANITA BIRCH Comment: Last Colonoscopy 2011; no CRC or PolypsAug 20, 2013 Entered By: JUANITA BIRCH Comment: done [facility]; repeat 2018 Entered By: JUANITA BIRCH Comment: Last Colonoscopy 2018; Neg CRC; Repeat prn x [facility] Hypercholesterolemia Active Condition Aug 20, 2013 Entered By: JUANITA BIRCH Comment: cannot tolerate Statin's; on Zetia [facility] Indigestion Active Condition [facility] [facility] Long-term current use of anticoagulant Active Condition [facility] (6[facility]GE) Peripheral vascular disease Active Condition Sep 08, 2022 Entered By: JUANITA BIRCH Comment: Stasis Derm Both LE's [facility] Diagnosis: ICD-10-CM E11.65 Type 2 diabetes mellitus with hyperglycemia Active Diagnosis [facility] Diagnosis: ICD-10-CM Z04.89 Encounter for examination and observation for oth reasons Active Diagnosis [facility] Diagnosis: ICD-10-CM Z79.01 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 Medication Details Route Status Patient Instructions Prescription Expires Prescription Number Last Dispense Date Ordering Provider Order Date Order Qty Source APIXABAN 5MG TAB TAKE ONE-HALF TABLET BY MOUTH EVERY 12 HOURS ORAL ACTIVE 12/18/2025 [id number] KYRA BIRCH 2024 90 [facility] IELD APIXABAN 5MG TAB TAKE ONE-HALF TABLET BY MOUTH EVERY 12 HOURS ORAL DISCONT INUED 12/18/2025 [id number] KYRA BIRCH 2024 90 [facility] IELD ATORVASTATI N TAB TAKE LIPITOR BY MOUTH ONCE DAILY ORAL ACTIVE KYRA BIRCH 2019 [facility] IELD BUPROPION HCL 150MG 24HR TAB,SA TAKE ONE TABLET BY MOUTH ONCE DAILY ORAL ACTIVE KYRA BIRCH 2021 [facility] IEITZEL EMPAGLIFLOZ IN 10MG TAB TAKE ONE TABLET BY MOUTH ONCE DAILY ORAL DISCONT INUED BY PROVIDE R 02/05/2025 [id number] KYRA BIRCH 2023 90 [facility] IEITZEL EZETIMIBE 10MG TAB TAKE ONE TABLET BY MOUTH EVERY DAY ORAL ACTIVE KYRA BIRCH 2012 [facility] IELD FAMOTIDINE 20MG TAB TAKE ONE TABLET BY MOUTH EVERY DAY NEEDED ORAL ACTIVE KYRA BIRCH [facility] IELD FUROSEMIDE TAB TAKE LASIX BY MOUTH ONCE DAILY ORAL ACTIVE KYRA BIRCH [facility] IELD INSULIN,GLA RGINE,HUMAN 100 UNIT/ML INJ,SOLOSTA R,3ML INJECT 32 UNITS SUBCUTAN EOUSLY ONCE DAILY FOR DIABETES SUBCUT ANEOUS ACTIVE 12/31/2025 [id number] 5 ANTHONY TEJEDA 2024 10 [place] INSULIN,GLA RGINE-YFGN 100UNIT/ML INJ PEN,3ML INJECT 30 UNITS SUBCUTAN EOUSLY EVERY EVENING FOR DIABETES SUBCUT ANEOUS DISCONT INUED BY PROVIDE R 10/09/2025 [id number] 4 ANTHONY TEJEDA 2023 5 [place] INSULIN,GLA RGINE-YFGN 100UNIT/ML INJ PEN,3ML INJECT 28 UNITS SUBCUTAN EOUSLY EVERY EVENING FOR DIABETES SUBCUT ANEOUS DISCONT INUED (EDIT) 12/13/2024 [id number] 4 ANTHONY TEJEDA 2023 10 IELD METOPROLOL TARTRATE 25MG TAB TAKE ONE-HALF TABLET BY MOUTH TWICE DAILY ORAL ACTIVE KYRA BIRCH 2019 IELD SEMAGLUTIDE 0.25MG/0.37 5ML INJ,SOLN,PE N,3ML INJECT 0.25MG SUBCUTAN EOUSLY ONCE A WEEK FOR TYPE 2 DIABETES MELLITUS SUBCUT ANEOUS DISCONT INUED BY PROVIDE R 04/03/2024 [id number] 4 ANTHONY TEJEDA 2023 1 IELD SERTRALINE [...] Site Reaction Lot Number CVX Code Drug Orbitread Operator Status Comments Source INFLUENZA, UNSPECIFIED FORMULATION 2022 [...] Aug 20, 2024 02:24 PM Reporting Lab: [facility] [place] [address] [address] Performing Lab: [facility] [place] [facility] [address] [facility] [address] [place] LIVER FUNCTION ALBUMIN [MASS/VOLUM E] IN SERUM OR PLASMA 3.6 g/dL 3.5 - 5.0 09/02 Specimen Type: SERUM No comment entered. Ordering Provider: JUANITA BIRCH Report Released Date/Time: Aug 20, 2024 02:24 PM Reporting Lab: [facility] [place] [facility] [address] [facility] [address] Performing Lab: [facility] [place] [address] [address] [place] LIVER FUNCTION ALKALINE PHOSPHATASE [ENZYMATIC ACTIVITY/VO LUME] IN SERUM OR PLASMA 70 U/L 40 - 150 09/02 Specimen Type: SERUM No comment entered. Ordering Provider: JUANITA BIRCH Report Released Date/Time: Aug 20, 2024 02:24 PM Reporting Lab: [facility] [place] [facility] [address] [facility] [address] Performing Lab: [facility] [address] [place] LIVER FUNCTION ASPARTATE AMINOTRANSF ERASE [ENZYMATIC ACTIVITY/VO LUME] IN SERUM OR PLASMA 21 U/L 5 - 34 09/02 Specimen Type: SERUM No comment entered. Ordering Provider: JUANITA BIRCH Report Released Date/Time: Aug 20, 2024 02:24 PM Reporting Lab: [facility] [address] [address] Performing Lab: [facility] [address] [address] [place] LIVER FUNCTION ALANINE AMINOTRANSF ERASE [ENZYMATIC ACTIVITY/VO LUME] IN SERUM OR PLASMA 29 U/L 09/02 Specimen Type: SERUM No comment entered. Ordering Provider: JUANITA BIRCH Report Released Date/Time: Aug 20, 2024 02:24 PM Reporting Lab: [address] [address] Performing Lab: [address] [address] [place] LIVER FUNCTION BILIRUBIN.T OTAL [MASS/VOLUM E] IN SERUM OR PLASMA 0.6 mg/dL 0.2 - 1.2 09/02 Specimen Type: SERUM No comment entered. Ordering Provider: JUANITA BIRCH Report Released Date/Time: Aug 20, 2024 02:24 PM Reporting Lab: [address] [address] Performing Lab: [address] [address] [place] LIPID PANEL FASTING CHOLESTEROL [MASS/VOLUM E] IN SERUM OR PLASMA 167 mg/dL 09/02 Specimen Type: SERUM No comment entered. Ordering Provider: JUANITA BIRCH Report Released Date/Time: Aug 20, 2024 02:24 PM Reporting Lab: [facility] [address] [address] Performing Lab: [address] [address] [place] LIPID PANEL FASTING TRIGLYCERID E [MASS/VOLUM E] IN SERUM OR PLASMA 102 mg/dL 0 - 150 09/02 Specimen Type: SERUM No comment entered. Ordering Provider: JUANITA BIRCH Report Released Date/Time: Aug 20, 2024 02:24 PM Reporting Lab: [facility] [address] [facility] [address] Performing Lab: [facility] [address] [facility] [address] [place] LIPID PANEL FASTING CHOLESTEROL IN LDL [MASS/VOLUM E] IN SERUM OR PLASMA BY CALCULATION 76 mg/dL 0 - 129 09/02 Specimen Type: SERUM No comment entered. Ordering Provider: JUANITA BIRCH Report Released Date/Time: Aug 20, 2024 02:24 PM Reporting Lab: [address] [address] Performing Lab: [address] [address] [place] LIPID PANEL FASTING CHOLESTEROL .TOTAL/CHOL ESTEROL IN HDL [MASS RATIO] IN SERUM OR PLASMA 2.4 09/02 Specimen Type: SERUM No comment entered. Ordering Provider: JUANITA BIRCH Report Released Date/Time: Aug 20, 2024 02:24 PM Reporting Lab: [address] [address] Performing Lab: [address] [address] [place] LIPID PANEL FASTING CHOLESTEROL IN HDL [MASS/VOLUM E] IN SERUM OR PLASMA 71 mg/dL 40 - 60 09/02 H Specimen Type: SERUM No comment entered. Ordering Provider: JUANITA BIRCH Report Released Date/Time: Aug 20, 2024 02:24 PM Reporting Lab: [address] [address] Performing Lab: [address] [address] [place] CALCIUM CALCIUM [MASS/VOLUM E] IN SERUM OR PLASMA 9.1 mg/dL 8.5 - 10.2 09/02 Specimen Type: SERUM No comment entered. Ordering Provider: JUANITA BIRCH Report Released Date/Time: Aug 20, 2024 02:24 PM Reporting Lab: [address] [address] Performing Lab: [address] [address] [place] URIC ACID URATE [MASS/VOLUM E] IN SERUM OR PLASMA 7.9 mg/dL 3.5 - 7.2 09/02 H Specimen Type: SERUM No comment entered. Ordering Provider: JUANITA BIRCH Report Released Date/Time: Aug 20, 2024 02:24 PM Reporting Lab: [address] [address] Performing Lab: [address] [address] [place] VITAMIN D (25-OH) 25-HYDROXYV ITAMIN D3 [MASS/VOLUM E] IN SERUM OR PLASMA 45 ng/mL 20 - 50 09/02 Specimen Type: SERUM No comment entered. Ordering Provider: JUANITA BIRCH Report Released Date/Time: Aug 20, 2024 02:24 PM Reporting Lab: [address] [address] Performing Lab: [address] [address] [place] FERRITIN FERRITIN [MASS/VOLUM E] IN SERUM OR PLASMA 302 ng/mL 20 - 300 09/02 H Specimen Type: SERUM No comment entered. Ordering Provider: JUANITA BIRCH Report Released Date/Time: Aug 20, 2024 02:24 PM Reporting Lab: [address] [address] Performing Lab: [address] [address] [place] CBC AND DIFF (AUTO) LEUKOCYTES [#/VOLUME] IN BLOOD BY AUTOMATED COUNT 5.39 10*3/u L 4.50 - 11.00 09/02 Specimen Type: BLOOD No comment entered. Ordering Provider: JUANITA BIRCH Report Released Date/Time: Aug 20, 2024 02:24 PM Reporting Lab: [facility] [address] [facility] [address] Performing Lab: [facility] [address] [place] CBC AND DIFF (AUTO) ERYTHROCYTE S [#/VOLUME] IN BLOOD BY AUTOMATED COUNT 4.07 10*6/u L 4.23 - 5.66 09/02 L Specimen Type: BLOOD No comment entered. Ordering Provider: JUANITA BIRCH Report Released Date/Time: Aug 20, 2024 02:24 PM Reporting Lab: [facility] [address] [address] Performing Lab: [address] [address] [place] CBC AND DIFF (AUTO) HEMOGLOBIN [MASS/VOLUM E] IN BLOOD 12.9 g/dL 12.8 - 17 09/02 Specimen Type: BLOOD No comment entered. Ordering Provider: JUANITA BIRCH Report Released Date/Time: Aug 20, 2024 02:24 PM Reporting Lab: [facility] [address] [address] Performing Lab: [facility] [address] [place] CBC AND DIFF (AUTO) HEMATOCRIT [VOLUME FRACTION] OF BLOOD BY AUTOMATED COUNT 37.6 39.2 - 50.4 09/02 L Specimen Type: BLOOD No comment entered. Ordering Provider: JUANITA BIRCH Report Released Date/Time: Aug 20, 2024 02:24 PM Reporting Lab: [facility] [address] [address] Performing Lab: [facility] [address] [address] [place] CBC AND DIFF (AUTO) MCV [ENTITIC VOLUME] BY AUTOMATED COUNT 92.4 fL 82 - 99 09/02 Specimen Type: BLOOD No comment entered. Ordering Provider: JUANITA BIRCH Report Released Date/Time: Aug 20, 2024 02:24 PM Reporting Lab: [facility] [address] [address] Performing Lab: [facility] [place] [address] [address] [place] CBC AND DIFF (AUTO) MCHC [MASS/VOLUM E] BY AUTOMATED COUNT 34.3 g/dL 30.8 - 35.1 09/02 Specimen Type: BLOOD No comment entered. Ordering Provider: JUANITA BIRCH Report Released Date/Time: Aug 20, 2024 02:24 PM Reporting Lab: [facility] [place] [address] [address] Performing Lab: [facility] [address] [address] [place] CBC AND DIFF (AUTO) PLATELETS [#/VOLUME] IN BLOOD BY AUTOMATED COUNT 164 10*3/u L 140 - 360 09/02 Specimen Type: BLOOD No comment entered. Ordering Provider: JUANITA BIRCH Report Released Date/Time: Aug 20, 2024 02:24 PM Reporting Lab: [facility] [place] [address] [address] Performing Lab: [facility] [place] [address] [address] [place] CBC AND DIFF (AUTO) ERYTHROCYTE DISTRIBUTIO N WIDTH [RATIO] BY AUTOMATED COUNT 13.0 12.0 - 16.0 09/02 Specimen Type: BLOOD No comment entered. Ordering Provider: JUANITA BIRCH Report Released Date/Time: Aug 20, 2024 02:24 PM Reporting Lab: [facility] [place] [address] [address] Performing Lab: [facility] [place] [address] [address] [place] CBC AND DIFF (AUTO) MONOCYTES [#/VOLUME] IN BLOOD BY AUTOMATED COUNT 0.49 10*3/u L 0.30 - 1.10 09/02 Specimen Type: BLOOD No comment entered. Ordering Provider: JUANITA BIRCH Report Released Date/Time: Aug 20, 2024 02:24 PM Reporting Lab: [facility] [address] [address] Performing Lab: [facility] [place] [facility] [address] [facility] [address] [place] CBC AND DIFF (AUTO) MCH [ENTITIC MASS] BY AUTOMATED COUNT 31.7 pg 26.2 - 32.6 09/02 Specimen Type: BLOOD No comment entered. Ordering Provider: JUANITA BIRCH Report Released Date/Time: Aug 20, 2024 02:24 PM Reporting Lab: [facility] [place] [facility] [address] [facility] [address] Performing Lab: [place] [facility] [place] [facility] [address] [facility] [address] [place] CBC AND DIFF (AUTO) NEUTROPHILS /100 LEUKOCYTES IN BLOOD BY AUTOMATED COUNT 71.1 43.7 - 75.8 09/02 Specimen Type: BLOOD No comment entered. Ordering Provider: JUANITA BIRCH Report Released Date/Time: Aug 20, 2024 02:24 PM Reporting Lab: [facility] [place] [address] [address] Performing Lab: [facility] [place] [address] [address] [place] CBC AND DIFF (AUTO) LYMPHOCYTES /100 LEUKOCYTES IN BLOOD BY AUTOMATED COUNT 16.1 14.0 - 42.3 09/02 Specimen Type: BLOOD No comment entered. Ordering Provider: JUANITA BIRCH Report Released Date/Time: Aug 20, 2024 02:24 PM Reporting Lab: [facility] [place] [address] [address] Performing Lab: [facility] [place] [address] [address] [place] CBC AND DIFF (AUTO) MONOCYTES/1 00 LEUKOCYTES IN BLOOD BY AUTOMATED COUNT 9.1 5.1 - 13.7 09/02 Specimen Type: BLOOD No comment entered. Ordering Provider: JUANITA BIRCH Report Released Date/Time: Aug 20, 2024 02:24 PM Reporting Lab: [facility] [address] [address] Performing Lab: [facility] [place] [address] [address] [place] CBC AND DIFF (AUTO) EOSINOPHILS /100 LEUKOCYTES IN BLOOD BY AUTOMATED COUNT 3.5 0.4 - 6.8 09/02 Specimen Type: BLOOD No comment entered. Ordering Provider: JUANITA BIRCH Report Released Date/Time: Aug 20, 2024 02:24 PM Reporting Lab: [facility] [address] [facility] [address] Performing Lab: [place] [facility] [address] [facility] [address] [place] CBC AND DIFF (AUTO) BASOPHILS/1 00 LEUKOCYTES IN BLOOD BY AUTOMATED COUNT 0.0 0.1 - 2.0 09/02 L Specimen Type: BLOOD No comment entered. Ordering Provider: JUANITA BIRCH Report Released Date/Time: Aug 20, 2024 02:24 PM Reporting Lab: [facility]ITALRM[facility]ITALN [address] [address] Performing Lab: [facility] TRN [address] [address] [place] CBC AND DIFF (AUTO) NEUTROPHILS [#/VOLUME] IN BLOOD BY AUTOMATED COUNT 3.83 10*3/u L 2.20 - 7.60 09/02 Specimen Type: BLOOD No comment entered. Ordering Provider: JUANITA BIRCH Report Released Date/Time: Aug 20, 2024 02:24 PM Reporting Lab: [facility]ITALRM[facility] HOSPITALN [address] [address] Performing Lab: [facility] TRN [address] [address] [place] CBC AND DIFF (AUTO) LYMPHOCYTES [#/VOLUME] IN BLOOD BY AUTOMATED COUNT 0.87 10*3/u L 1.00 - 3.20 09/02 L Specimen Type: BLOOD No comment entered. Ordering Provider: JUANITA BIRCH Report Released Date/Time: Aug 20, 2024 02:24 PM Reporting Lab: [facility] [address] Performing Lab: [facility]ITALRMOUNT[facility] VIEW HOSPITALN [address] [address] [place] CBC AND DIFF (AUTO) EOSINOPHILS [#/VOLUME] IN BLOOD BY AUTOMATED COUNT 0.19 10*3/u L 0.03 - 0.44 09/02 Specimen Type: BLOOD No comment entered. Ordering Provider: JUANITA BIRCH Report Released Date/Time: Aug 20, 2024 02:24 PM Reporting Lab: [facility]ITALRMOUNT[facility] HOSPITALN [address] [address] Performing Lab: [facility]RL [facility] [address] [address] [place] CBC AND DIFF (AUTO) BASOPHILS [#/VOLUME] IN BLOOD BY AUTOMATED COUNT 0.00 10*3/u L 0.01 - 0.13 09/02 L Specimen Type: BLOOD No comment entered. Ordering Provider: JUANITA BIRCH Report Released Date/Time: Aug 20, 2024 02:24 PM Reporting Lab: [facility] [address] [address] Performing Lab: [facility]ITALRMOUNT[facility] HOSPITALN [facility] [address] [place] CBC AND DIFF (AUTO) IMMATURE GRANULOCYTE S/100 LEUKOCYTES IN BLOOD BY AUTOMATED COUNT 0.2 0.0 - 0.7 09/02 Specimen Type: BLOOD No comment entered. Ordering Provider: JUANITA BIRCH Report Released Date/Time: Aug 20, 2024 02:24 PM Reporting Lab: [facility] [address] [address] Performing Lab: [facility]ITALRMOUNT[facility]IEW HOSPITALN [facility]USE[address] [address] [place] CBC AND DIFF (AUTO) IMMATURE GRANULOCYTE S [#/VOLUME] IN BLOOD 0.01 10*3/u L 0.00 - 0.06 09/02 Specimen Type: BLOOD No comment entered. Ordering Provider: JUANITA BIRCH Report Released Date/Time: Aug 20, 2024 02:24 PM Reporting Lab: [facility]ITALRCENTR[facility]–MONTGOMERYTRN [address] [address] Performing Lab: [facility]ITALRMOUNTAIN VIEW HOSPITALN [address] [address] [place] CBC AND DIFF (AUTO) NRBC % 0.0 0.0 - 0.0 09/02 Specimen Type: BLOOD No comment entered. Ordering Provider: JUANITA BIRCH Report Released Date/Time: Aug 20, 2024 02:24 PM Reporting Lab: [address] [address] Performing Lab: [address] [address] [place] CBC AND DIFF (AUTO) NRBC, ABS 0.00 10*3/u L 0.00 - 0.00 09/02 Specimen Type: BLOOD No comment entered. Ordering Provider: JUANITA BIRCH Report Released Date/Time: Aug 20, 2024 02:24 PM Reporting Lab: [address] [address] Performing Lab: [address] [address] [place] HEMOGLOBI N A1C PANEL HEMOGLOBIN A1C/HEMOGLO BIN.TOTAL [...] 20, 2024 02:24 PM Reporting Lab: [address] [address] Performing Lab: [address] [address] [place] TSH THYROTROPIN [UNITS/VOLU ME] IN SERUM OR PLASMA 4.66 u[IU]/ mL 0.35 - 5.00 09/02 Specimen Type: SERUM No comment entered. Ordering Provider: JUANITA BIRCH Report Released Date/Time: Aug 20, 2024 02:24 PM Reporting Lab: [facility]ITALRCEN[facility]–MONTGOMERYTRN [facility]ITALUSETS [facility] [address] [facility] [address] Performing Lab: [facility]ITALRCENTRAL [facility]–MONTGOMERYTRN [facility]ITALUSETS [facility] [address] [facility] [address] [place] MICROALBU MIN CREATININ E RATIO PANEL MICROALBUMI N/CREATININ E [MASS RATIO] IN URINE 9.9 mg/g 0 - 29.9 09/02 Specimen Type: URINE No comment entered. Ordering Provider: JUANITA BIRCH Report Released Date/Time: Aug 20, 2024 02:24 PM Reporting Lab: [facility]PITALRMOUNTAIN VIEW HOSPITALN [facility] [address] [facility] [address] Performing Lab: [facility]ITALUSE[address] [address] [place] MICROALBU MIN CREATININ E RATIO PANEL MICROALBUMI N [MASS/VOLUM E] IN URINE 0.8 mg/dL 09/02 Specimen Type: URINE No comment entered. Ordering Provider: JUANITA BIRCH Report Released Date/Time: Aug 20, 2024 02:24 PM Reporting Lab: [facility] [address] [facility] [address] Performing Lab: [facility]USE[facility] [address] [facility] [address] [place] MICROALBU MIN CREATININ E RATIO PANEL CREATININE [MASS/VOLUM E] IN URINE 80.78 mg/dL 09/02 Specimen Type: URINE No comment entered. Ordering Provider: JUANITA BIRCH Report Released Date/Time: Aug 20, 2024 02:24 PM Reporting Lab: [facility] [address] [facility] [address] Performing Lab: [facility]ITALUSE[address] [address] [place] Vital Signs Combined list of inpatient and outpatient Vital Signs from Department of Defense and Veterans Affairs, ranging from 12 months to all on record, depending upon the facility. Vital Sign Value Date Comments Source SYSTOLIC BLOOD PRESSURE 126 09/03/2024 10:28:15 [facility] DIASTOLIC BLOOD PRESSURE 76 09/03/2024 10:28:15 [facility] PULSE OXIMETRY 98 09/03/2024 10:28:15 S GFLEVI [...] [facility] Encounter [id number] 08/04 [facility] Outpatient Encounter [id number] 08/06 [facility] Out[facility] Encounter [id number] 08/25 [facility] Outpatient Encounter [id number] 08/29 [facility] [place] O/P EST MOD 30-39 MIN [id number] Diagnos is: ICD-10- CM N18.30 Chronic kidney disease , stage 3 unspeci [facility] MIN [id number] Diagnos is: ICD-10- CM 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 SOPHIA TEJEDA IE 11/07 [facility] QNHP OL DIG ASSMT&MGMT 5-10 [id number] Diagnos is: ICD-10- CM 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 Charlene COOK 11/08 [facility] Outpatient Encounter [id number] YOBANI BIRCH 12/11 [facility] [place] MTMS BY PHARM ADDL 15 MIN [id number] Diagnos is: ICD-10- CM 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 SOPHIA TEJEDA IE 12/12 [place] [facility] Outpatient Encounter [id number] WALDEMAR MCCALLUM 12/13 [facility] Outpatient Encounter [id number] 01/16 [facility] Outpatient Encounter [id number] 01/16 [facility] Outpatient Encounter [id number] 01/16 [facility] Outpatient Encounter [id number] 01/21 [facility] [place] MTMS BY PHARM ADDL 15 MIN [id number] Diagnos is: ICD-10- CM 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 SOPHIA TEJEDA IE 01/29 [place] [facility] Outpatient Encounter [id number] 01/30 [facility] Outpatient Encounter [id number] 01/30 [facility] [place] MTMS BY PHARM [employer]ANER MILL GRADER 15 MIN [id number] Diagnos is: ICD-10- CM 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 NIKHIL,SOPHIA IE 02/06 [place] MTMS BY PHARM ADDL 15 MIN [id number] Diagnos is: ICD-10- CM 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 NIKHIL,SOPHIA IE 03/04 [place] [facility] QNHP OL DIG ASSMT&MGMT 5-10 [id number] Diagnos is: ICD-10- CM 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 JANDRIS,KR ISTIE J 03/04 [facility] Outpatient Encounter [id number] 04/02 [facility] Outpatient Encounter [id number] 04/04 [facility] Outpatient Encounter [id number] 04/05 [facility] [place] MTMS BY PHARM ADDL 15 MIN [id number] Diagnos is: ICD-10- CM 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 NIKHIL,SOPHIA IE 04/15 [place] O/P EST MOD 30 MIN [id number] Diagnos is: ICD-10- CM 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 EYAL,YOBANI N 09/03 [place] MTMS BY PHARM PL[employer]ER MILL GRADER 15 MIN [id number] Diagnos is: ICD-10- CM 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 NIKHIL,SOPHIA IE 10/08 [place] [facility] Outpatient Encounter [id number] 1.10/16 [facility] Outpatient Encounter [id number] 1.10/17 [facility] [place] MTMS BY PHARM PLANER MILL GRADER 15 MIN [id number] Diagnos is: ICD-10- CM 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 NIKHIL,SOPHIA IE 10/25 [place] MTMS BY PHARM [employer]ER MILL GRADER 15 MIN [id number] Diagnos is: ICD-10- CM 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 NIKHIL,SOPHIA IE 11/12 [place] [facility] Outpatient Encounter [id number] 1.11/28 [facility] Outpatient Encounter [id number] 1.12/13 [facility] Outpatient Encounter [id number] 1.12/17 [facility] ([id number] MTMS BY PHARM EST 15 MIN [id number] Diagnos is: ICD-10- CM Z79.01 prison (curren t) use of anticoa gulants ROBI,ALB ERT ALLISON 12/17 [id number] MICHEL ROBBINS NQHP OL DIG ASSMT&MGMT 5-10 [id number] Diagnos is: ICD-10- CM Z04.89 Encount er for examina tion and observa tion for oth reasons SOPHIA TEJEDA IE 12/18 [facility] IEITZEL ROBBINS MTMS BY PHARM PLANER MILL GRADER 15 MIN [id number] Diagnos is: ICD-10- CM 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 Social History Type Response Date Comment Sourc e Tobacco smoking status NHIS [place]-TOBACCO FORMER USER 09/03/2024 [facility] History of tobacco use AK-TOBACCO QUIT 15 YRS OR MORE 09/03/2024 [facility] History of tobacco use AK-TOBACCO FORMER USER 09/05/2023 [facility] History of tobacco use AK-TOBACCO FORMER USER 09/08/2022 [facility] History of tobacco use AK-TOBACCO FORMER USER 07/08/2021 [facility] History of tobacco use AK-TOBACCO NEVER USED 05/28/2020 [facility] History of tobacco use AK-TOBACCO QUIT 15 YRS OR MORE 05/29/2018 [facility] History of tobacco use LIFETIME NON-TOBACCO USER 05/29/2018 [facility] History of tobacco use QUIT TOBACCO USE > 7 YEARS AGO 05/04/2017 [facility] History of tobacco use QUIT TOBACCO USE > 7 YEARS AGO 04/28/2016 smoked for 4 years about 2 pack a week quit 50 years ago [facility] History of tobacco use QUIT TOBACCO USE > 7 YEARS AGO 08/20/2013 22 yo [facility] Plan of Care List of future care activities from Department of Veterans Affairs facilities. Additional future care activities may be listed in the Assessment and Plan section. Date/Time Care Activity Care Activity Detail Facili ty 02/10/2025 AMBULATORY - MEDICINE AM[facility]ULATORY - [facility]IC[facility] [place] [facility]
--- NOTE | 2025-02-05 13:06 | P.CONAN_ITS ---
Documented by User: Elle Dawson NP 02/05/25 13:09 HPI - Anesthesia Eval Consult details Narrative: 79yo M for Cardioversion Eliquis for afib s/p TAVR 01/2025 hypertension, hyperlipidemia, diabetes, coronary artery disease status post 4 vessel coronary artery bypass grafting 2018 [facility] Active Problems Active Problems: All Active Problems S/P TAVR (transcatheter aortic valve replacement) (Acute) Hospital discharge follow-up (Acute) Coronary artery disease (Acute) Aortic stenosis, severe (Acute) Paroxysmal atrial fibrillation (Acute) Hypoxia (Acute) Bronchopneumonia (Acute) Pulmonary nodules (Acute) Chronic restrictive lung disease (Acute) Chronic respiratory failure (Acute) Moderate aortic stenosis (Acute) Hypertension (Acute) Hx of CABG (Acute) Pulmonary fibrosis (Acute) Past Medical History Medical History Paroxysmal atrial fibrillation Coronary artery disease Aortic stenosis Atrial fibrillation, new onset Hypoxia Pulmonary nodules Chronic restrictive lung disease Chronic respiratory failure Pulmonary fibrosis Asbestosis Family History Family History Mother Ovarian cancer Father Heart attack Brother Heart attack Sister Diabetes Surgical History Surgical History History of open heart surgery Social History Social History Are you a primary patient care nursing assistant to a significant other at home: No Do you presently have visiting nurse or other home services: No Alcohol intake: former Year quit: 1989 Patient Tobacco Use Status: Former Tobacco user Tobacco use type: Cigarette Years Smoked: 8 Years Have you been hit, kicked, punched, or otherwise hurt by someone within the past year? If so, by whom?: No Are you DNR?: No Advance Directives: No Advance Directives Information Provided: Yes Poor oral hygiene: No service: Yes Meds Allergies Allergy/AdvReac Type Severity Reaction Status Date / Time No Known Allergies Allergy Verified 02/07/25 12:14 [No Known Allergies*] Home Medications ?Medication ?Instructions ?Recorded ?Confirmed ?Last Taken ?Type atorvastatin 80 mg tablet 80 mg PO DAILY 12/24/20 02/07/25 Unknown History metoprolol tartrate 25 mg tablet 12.5 mg PO BID 12/24/20 02/07/25 02/07/25 History sertraline 100 mg tablet 200 mg PO DAILY 12/24/20 02/07/25 02/07/25 History insulin glargine 100 unit/mL 30 unit subcut BEDTIME 05/24/22 02/07/25 Unknown History subcutaneous solution (Lantus U-100 Insulin) Oxygen Home Use 12/08/22 02/07/25 Unknown History nebulizers 12/08/22 02/07/25 Unknown History famotidine 20 mg tablet 20 mg PO DAILY 02/07/24 02/07/25 Unknown History bupropion HCl 150 mg tablet,12 hr 150 mg PO DAILY 10/16/24 02/07/25 02/07/25 History sustained-release torsemide 20 mg tablet 20 mg PO DAILY 10/16/24 02/07/25 02/07/25 History apixaban 2.5 mg tablet (Eliquis) 2.5 mg PO BID 11/14/24 02/07/25 02/07/25 History Exam Pertinent Lab Results Pertinent Lab Results: Laboratory Tests 01/28/25 10:41 WBC 8.7 Hgb 12.4 L Hct 37.8 L Plt Count 150 L Sodium 144 Potassium 3.9 Chloride 105 Carbon Dioxide 29 BUN 44 H Creatinine 1.79 H Narrative Narrative: EKG 01/2025 atrial fibrillation, nonspecific T wave abn, Qtc 469ms, rate 92 Assessment and Plan Assessment Anesthesia Assessment: Chart Reviewed Documented by User: Zee Gutierrez MD 02/07/25 13:14 [facility] Past Medical History Medical History Paroxysmal atrial fibrillation Coronary artery disease Aortic stenosis Atrial fibrillation, new onset Hypoxia Pulmonary nodules Chronic restrictive lung disease Chronic respiratory failure Pulmonary fibrosis Asbestosis Family History Family History Mother Ovarian cancer Father Heart attack Brother Heart attack Sister Diabetes Family history of problems with anesthesia: No Surgical History Surgical History History of open heart surgery History of Problems with Anesthesia: No Social History Social History Are you a primary patient care nursing assistant to a significant other at home: No Do you presently have visiting nurse or other home services: No Alcohol intake: former Year quit: 1989 Patient Tobacco Use Status: Former Tobacco user Tobacco use type: Cigarette Years Smoked: 8 Years Have you been hit, kicked, punched, or otherwise hurt by someone within the past year? If so, by whom?: No Are you DNR?: No Advance Directives: No Advance Directives Information Provided: Yes Poor oral hygiene: No service: Yes Meds Allergies Allergy/AdvReac Type Severity Reaction Status Date / Time No Known Allergies Allergy Verified 02/07/25 12:14 [No Known Allergies*] Home Medications ?Medication ?Instructions ?Recorded ?Confirmed ?Last Taken ?Type atorvastatin 80 mg tablet 80 mg PO DAILY 12/24/20 02/07/25 Unknown History metoprolol tartrate 25 mg tablet 12.5 mg PO BID 12/24/20 02/07/25 02/07/25 History sertraline 100 mg tablet 200 mg PO DAILY 12/24/20 02/07/25 02/07/25 History insulin glargine 100 unit/mL 30 unit subcut BEDTIME 05/24/22 02/07/25 Unknown History subcutaneous solution (Lantus U-100 Insulin) Oxygen Home Use 12/08/22 02/07/25 Unknown History nebulizers 12/08/22 02/07/25 Unknown History famotidine 20 mg tablet 20 mg PO DAILY 02/07/24 02/07/25 Unknown History bupropion HCl 150 mg tablet,12 hr 150 mg PO DAILY 10/16/24 02/07/25 02/07/25 History sustained-release torsemide 20 mg tablet 20 mg PO DAILY 10/16/24 02/07/25 02/07/25 History apixaban 2.5 mg tablet (Eliquis) 2.5 mg PO BID 11/14/24 02/07/25 02/07/25 History Exam Airway Mallampati Class: II TM Dist: >3cm Neck ROM: Full Heart: irreg Lungs: cta Assessment and Plan Assessment Anesthesia Assessment: Anesthesia Plan Discussed Final Anesthetic Review Family History of Problems with Anesthesia: No History of Problems with Anesthesia: No NPO: Yes ASA Class: IV Final Preanesthetic Review: No Changes in Pt Med Stat, Meds/Allgs Chart Reviewed and Consent Obtained/Reviewed Patient Risk: Intermediate Procedure Risk: Intermediate Anesthetic Plan Anesthetic Plan: MAC: Disposition: Standard PACU
[2025-02-07] VITALS (7 sets, daily range): BP systolic 91–133; BP diastolic 43–67; PULSE 60–87; RESP 16–18; TEMP 36.1–36.7; O2SAT 92–99; BMI 30.6
[2025-02-07] MEDS: Lactated Ringers 1,000 ML 100 ML IVCONT (12:31)
[2025-02-07 12:42] LABS: Glucose, Whole Blood 175 mg/dL (60-115)
--- NOTE | 2025-02-07 13:37 | PC.NURSE ---
report given to jerry montano rn at this time. aware that procedure order and 24 hour need to be completed when doctor arrives.
--- NOTE | 2025-02-07 13:43 | MHC.SHP ---
Pre-Procedural Eval Section A - 24 Hr Update-Section A only Date of Service: 02/07/25 The patient is an INPATIENT: No Section B - Complete if H&P > 30 days Chief Complaint: Other persistent atrial fibrillation Allergies: Allergies Allergy/AdvReac Type Severity Reaction Status Date / Time No Known Allergies Allergy Verified 02/07/25 12:14 [No Known Allergies*] Plan I have reviewed the history and physical and performed a pertinent physical examination on my patient. No changes have occurred unless specified. Time Spent With Patient Time: Total time managing care of this patient today ____ minutes.
--- NOTE | 2025-02-07 13:50 | HO.CARDIVERS ---
Cardioversion Procedure Note Cardioversion Date of Procedure: 02/07/2025 Pre-Op Diagnosis: Atrial fibrillation Post-Op Diagnosis: Sinus rhythm Consent: Informed consent obtained. Procedure: After informed consent was obtained, patient was taken to the PACU. The patient was then positioned appropriately. The cardioversion pads were placed in anteroposterior position. Once under anesthesia, 120 joules of synchronized shock was administered. The rhythm converted from atrial fibrillation to sinus rhythm. Patient remained in sinus rhythm after the end of procedure. Complications: None. Impression: Successful cardioversion from atrial fibrillation to sinus rhythm. Recommendations: Start Amiodarone loading followed by maintenance. He may need long-term antiarrhythmic therapy to maintain sinus rhythm. EKG next week in clinic and follow-up.
--- NOTE | 2025-02-07 13:51 | ECG_ITS ---
Test Reason : post cardioversoin Blood Pressure : */* mmHG Vent. Rate : 66 BPM Atrial Rate : * BPM P-R Int : * ms QRS Dur : 108 ms QT Int : 400 ms P-R-T Axes : * -27 141 degrees QTcB Int : 419 ms Poor data quality, interpretation may be adversely affected Accelerated Junctional rhythm Nonspecific T wave abnormality Abnormal ECG When compared with ECG of 17-Oct-2024 10:00, Junctional rhythm has replaced Sinus rhythm Nonspecific T wave abnormality now evident in Lateral leads Referred By: Rocky Rouse Electronically Signed By:
[2025-02-07] MEDS: Amiodarone HCL 200 MG TABLET 400 MG PO (14:05)
--- NOTE | 2025-02-07 14:05 | HO.POSTANES ---
Post Anesthesia Evaluation Post Anesthesia Evaluation Date of Service: 02/07/25 Vital Signs: Vital Signs Temp Pulse Resp BP Pulse Ox O2 Del Method 02/07/25 12:50 98.0 F 87 18 133/67 92 Room Air Anesthesia: General Mental Status: Awake Pain Control: Satisfactory Nausea/Vomiting: None Hydration: Adequate Anesthesia-Related Issues: No Anes. Related Issues
== END 2025-02-07 15:22 | disposition home or self-care (01) ==
PROVIDERS: PCP Family Medicine; Visit Provider Internal Medicine
PROC: 5A2204Z Restoration of Cardiac Rhythm, Single (ICD-10-PCS; principal; 2025-02-07 13:30)
DX: I48.19 Other persistent atrial fibrillation (principal); R06.02 Shortness of breath; I35.0 Nonrheumatic aortic (valve) stenosis; Z95.2 Presence of prosthetic heart valve; I25.10 Atherosclerotic heart disease of native coronary artery without angina pectoris; Z95.1 Presence of aortocoronary bypass graft; I10 Essential (primary) hypertension; R60.0 Localized edema; J61 Pneumoconiosis due to asbestos and other mineral fibers; E78.5 Hyperlipidemia, unspecified; E11.9 Type 2 diabetes mellitus without complications; Z79.01 Long term (current) use of anticoagulants; Z79.4 Long term (current) use of insulin; Z99.81 Dependence on supplemental oxygen; Z79.899 Other long term (current) drug therapy; Z87.891 Personal history of nicotine dependence
CPT/HCPCS: 82947; 92960; 93005; J2704

== ENCOUNTER → 2025-02-07 11:50 | Outpatient (BNV) | payer MEDICARE, OTHER, SELFPAY | PROVIDERS: PCP Family Medicine; Visit Provider Internal Medicine | DX: I48.91 Unspecified atrial fibrillation (principal) | CPT/HCPCS: 92960 ==

== ENCOUNTER → 2025-02-14 09:03 | Outpatient (BNVA) | payer MEDICARE, OTHER, SELFPAY | PROVIDERS: PCP Family Medicine; Visit Provider Nurse Practitioner Family | DX: Z13.89 Encounter for screening for other disorder (principal) ==

== ENCOUNTER → 2025-03-07 08:44 | Outpatient (REF) | payer MEDICARE, OTHER, SELFPAY ==
--- NOTE | 2025-03-07 08:47 | CA_ITS ---
Transthoracic Echocardiogram Patient (Last, First, Middle): Dave Tran D Gender: Male Date of : 1945 Age: 79 Procedure Date: 03/07/2025 Procedure Type: Transthoracic Echocardiogram Location: OP Height: 177.8 cm Weight: 104.33 kg BSA: 2.22 m2 Heart Rate: bpm BP: 140 / 62 mmHg Speech Clinician: TO Referring MD: John Hutson MD Symptoms: Z95.2 - Presence of prosthetic heart valve Study Quality: Technically Difficult/Contrast Conclusions: - Normal left ventricular cavity size. There is normal left ventricular wall thickness. The left ventricular systolic function is low normal. The visually estimated ejection fraction is between 50-55%. - Mildly increased right ventricular cavity size. There is normal right ventricular systolic function. - A bioprosthetic aortic valve is present. There is no aortic valve stenosis. The mean gradient is 7 mmHg. There is trace (trivial)paravalvular aortic valve regurgitation. Findings Procedure Information Contrast agent, definity, is being given per protocol without apparent complications. Left Ventricle Normal left ventricular cavity size. There is normal left ventricular wall thickness. The left ventricular systolic function is low normal. The visually estimated ejection fraction is between 50-55%. Abnormal diastolic function is noted. Spectral Doppler is indicative of a pseudonormal filling pattern. Elevated filling pressures. Right Ventricle Mildly increased right ventricular cavity size. There is normal right ventricular systolic function. Atria The left atrium is mildly dilated. The right atrium is moderately dilated. Aortic Valve A bioprosthetic aortic valve is present. There is no aortic valve stenosis. The mean gradient is 7 mmHg. There is trace (trivial)paravalvular aortic valve regurgitation. Mitral Valve There is mild mitral annular calcification. There is no mitral valve regurgitation. There is no mitral valve stenosis. Pulmonic Valve The pulmonic valve is likely normal. Tricuspid Valve Normal tricuspid valve structure. There is mild tricuspid valve regurgitation. The right ventricular systolic pressure is 42 mmHg. Normal right atrial pressure. Mild pulmonary hypertension is present. Great Vessels All visible segments of the aorta are normal in size. Venous The inferior vena cava is normal in size and collapses greater than 50% with inspiration. Pericardium/Pleural There is no evidence of pericardial effusion. Prior Study Comparison Changes noted compared to prior study dated: 10/16/2024. s/p TAVR. Trace paravalvular leak, MG 7 mm Hg. Measurements 2D Linear Measurements IVSd: 1.03 0.6-0.9/0.6-1.0 cm LVIDd: 4.55 3.9-5.3/4.2-5.9 cm LVIDd Index: 2.05 2.4-3.2/2.2-3.1 cm/m2 LVIDs: 2.86 2.0-3.6 cm LVPWd: 0.97 0.7-1.1 cm LA Diam: 4.40 2.7-3.8/3.0-4.0 cm LAIDs Index: 1.98 1.5-2.3 cm/m2 LV Mass: 194.02 67-162/88-224 g LV Mass Index: 87.40 43-95/49-115 g/m2 LVOT Diam: 2.00 3.0+(-)1.3 cm 2D Systolic Function EF 4C: 44.30 >55% EF 2C: 47.20 >55% EF BiP: 46.40 >55% Mitral Valve MV Pk E: 0.91 MV PK A: 0.79 MV Decel Time: 321.00 E/A: 1.20 E'Lateral: 7.40 E'Medial: 5.22 E/E' Med: 17.50 E/E' Lat: 12.30 PHT: 94.00 MVA PHT: 2.34 Decel [place]: 2.84 Aortic Valve AoV Pk [place]: 1.74 AoV Mn [place]: 1.19 AoV VTI: 0.45 AoV Pk Grad: 12.00 Aov Mn Grad: 7.00 MISTY Cont.VTI: 1.47 LVOT LVOT Pk [place]: 0.92 LVOT Mn [place]: 0.62 LVOT VTI: 0.21 LVOT Pk Grad: 3.00 LVOT Mn Grad: 2.00 LVOT Diam: 2.00 LVOT Area: 3.14 Diastolic Function MV Pk E: 0.91 MV Pk A: 0.79 E/A: 1.20 E'Medial: 5.22 E/E' Med: 17.50 E' Laterial: 7.40 E/E' Lat: 12.30 Right Ventricle TAPSE (mm): 16.70 TVS' [place]: 9.25 Tricuspid Valve TR Pk [place]: 3.14 TR Pk Grad: 39.00 RA Press: 3.00 RVSP: 42.00 Great Vessels Aorta Ao Asc: 3.40 2.1-3.4 cm Updated in Other Vendor System with Status of Final John Hutson MD electronically signed on 03/09/2025 9:56:44 PM with status of Final
== END ==
LOC: HO.CARD 08:44
PROVIDERS: PCP Family Medicine; Visit Provider Internal Medicine Cardiovascular Disease
DX: Z95.2 Presence of prosthetic heart valve (principal)
CPT/HCPCS: 93306; Q9957

== ENCOUNTER → 2025-03-07 08:47 | Outpatient (BNV) | payer MEDICARE, OTHER, SELFPAY | PROVIDERS: PCP Family Medicine; Visit Provider Internal Medicine Cardiovascular Disease | DX: Z95.2 Presence of prosthetic heart valve (principal); I35.1 Nonrheumatic aortic (valve) insufficiency; I34.81 Nonrheumatic mitral (valve) annulus calcification | CPT/HCPCS: 93306 ==

== ENCOUNTER 2025-03-17 09:37 | Outpatient (AMB) | payer MEDICARE, OTHER, SELFPAY ==
--- NOTE | 2025-03-17 10:03 | MHC.OFFVIS ---
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 Radio Required: No Accompanied by: Spouse Allergies No Known Allergies [No Known Allergies*] Allergy (Verified 02/07/25 12:14) Medication List - Last Reconciled 03/17/25 by John Hutson MD amiodarone 200 mg PO DAILY apixaban (Eliquis) 2.5 mg PO BID atorvastatin 80 mg PO DAILY bupropion HCl SR 150 mg PO DAILY famotidine 20 mg PO DAILY insulin glargine (Lantus U-100 Insulin) 30 units subcut BEDTIME metoprolol tartrate 12.5 mg PO BID nebulizers As directed Oxygen Home Use As directed sertraline 200 mg PO DAILY torsemide 20 mg PO DAILY HPI Comments Details: [age] gentleman with previous bypass surgery and severe aortic valve stenosis status post transcatheter aortic valve replacement. He had atrial fibrillation and dyspnea on exertion and underwent cardioversion and has been on amiodarone. After cardioversion he has been doing significantly better. He is taking torsemide and appears to be more less euvolemic at this stage. Taking Eliquis 2.5 mg twice a day. He is on amiodarone. He is here to discuss further about AFib care and whether he can get off the amiodarone. [facility] Medical History Paroxysmal atrial fibrillation Coronary artery disease Aortic stenosis Atrial fibrillation, new onset Hypoxia Pulmonary nodules Chronic restrictive lung disease Chronic respiratory failure Pulmonary fibrosis Asbestosis Surgical History History of open heart surgery Family History Mother Ovarian cancer Father Heart attack Brother Heart attack Sister Diabetes Social History Are you a primary personal care assistant to a significant other at home: No Do you presently have visiting nurse or other home services: No Alcohol intake: former Year quit: 1989 Patient Tobacco Use Status: Former Tobacco user Tobacco use type: Cigarette Years Smoked: 8 Years service: Yes Review of Systems Const Denies chills, Denies fatigue, Denies fever(s), Denies frequent falls, Denies weakness, Denies weight gain and Denies weight loss ENT Denies dizziness Card Denies chest pain, Denies leg edema, Denies lightheadedness, Denies palpitations, Denies dyspnea and Denies dyspnea on exertion Resp Denies cough, Denies dyspnea and Denies dyspnea on exertion GI Denies hematochezia Musc Denies abnormal gait, Denies muscle weakness, Denies numbness, Denies radiating pain into limb and Denies tingling Neuro Denies abnormal gait, Denies dizziness, Denies frequent falls, Denies numbness, Denies tingling and Denies weakness Endo Denies fatigue and Denies palpitations Physical Exam Vital Signs: Last Vital Signs Pulse 57 03/17/25 10:12 BP 120/52 L 03/17/25 10:12 BMI result Body Mass Index 31.3 GENERAL APPEARANCE: in no acute distress, pleasant. NECK: no carotid bruit, no jugular venous distention. SKIN: no suspicious lesions, warm and dry. HEART: Regular rate and rhythm. No murmur/gallop. LUNGS: Crackles at bases. ABDOMEN: soft, nontender. EXTREMITIES: no edema. PERIPHERAL PULSES: equal. NEUROLOGIC: No gross deficits, AAO X 3 Office Procedures EKG Details: Sinus bradycardia 57 beats per minute, normal axis, prominent U-waves due to amiodarone, QTC 459 milliseconds. 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 He had atrial fibrillation and was symptomatic with dyspnea/heart failure. He has been cardioverted at this stage and is on amiodarone with sinus rhythm. Clinically appears to be stable and doing well. We discussed about long-term use of amiodarone in his case given history of asbestosis/COPD. I have advised him to consider ablation so we can get him off amiodarone. Flecainide/propafenone is not an option due to coronary artery disease. Also with heart failure Multaq is not an option. His creatinine clearance is 37 and I do not think we can use sotalol. I think options are long-term amiodarone use with close monitoring versus ablation and getting him off the amiodarone. He understands this and will follow up with electrophysiology at [facility]. Thank you for allowing me to participate in the care of your patient. Please feel free to contact me if you have any questions. Coding Level of Care Code Est Pt Level 4 (50281) Diagnoses S/P TAVR (transcatheter aortic valve replacement) Z95.2 Paroxysmal atrial fibrillation I48.0 CPT Codes EKG - CPT: 37987-[id number], Complete ([id number])
[2025-03-17 10:12] VITALS: BP 120/52; PULSE 57; BMI 31.3
== END 2025-03-17 10:49 | disposition home or self-care (01) ==
LOC: HO.HCS 09:37
PROVIDERS: PCP Family Medicine; Visit Provider Internal Medicine Cardiovascular Disease
DX: Z95.2 Presence of prosthetic heart valve (principal); I48.0 Paroxysmal atrial fibrillation
CPT/HCPCS: 93010; 99214

== ENCOUNTER → 2025-03-17 09:37 | Outpatient (BNVA) | payer MEDICARE, OTHER, SELFPAY | PROVIDERS: PCP Family Medicine; Visit Provider Internal Medicine Cardiovascular Disease | DX: I48.0 Paroxysmal atrial fibrillation (principal); J44.9 Chronic obstructive pulmonary disease, unspecified; Z99.81 Dependence on supplemental oxygen; Z95.1 Presence of aortocoronary bypass graft; Z95.2 Presence of prosthetic heart valve; Z79.01 Long term (current) use of anticoagulants | CPT/HCPCS: 93005; 99212 ==

== ENCOUNTER 2025-04-25 10:03 | Outpatient (REF) | payer MEDICARE, OTHER, SELFPAY ==
[2025-04-25 13:42] LABS: MANUAL DIFF FLAG NO
[2025-04-25 13:47] LABS: Basophils Percent Auto 0.1 % (0-2); Eosinophils Absolute Auto 0.2 X10*3/uL (0.0-0.4); Eosinophils Percent Auto 2.4 % (0-4); Hematocrit 39.6 % (42.0-52.0); Imm Gran Abs Auto 0.03 X10*3/uL (0.00-0.03); Imm Gran Pct Auto 0.4 % (0.0-0.4); Lymphocytes Absolute Auto 1.1 X10*3/uL (1.2-4.9); Lymphocytes Percent Auto 13.4 % (20-40); Mean Corpuscular HGB Conc 35.4 g/dl (31.0-36.0); Mean Corpuscular Hemoglobin 31.5 pg (27.0-33.0); Mean Corpuscular Volume 89.2 fL (80.0-98.0); Monocytes Absolute Auto 0.5 X10*3/uL (0.1-1.2); Monocytes Percent Auto 6.2 % (2-11); Neutrophils Absolute Auto 6.5 x10*3/uL (2.0-8.3); Neutrophils Percent Auto 77.5 % (45-73); Platelet Count 156 X10*3/uL (160-400); Red Blood Count 4.44 X10*6/uL (4.60-5.80); Red Cell Distribution Width 13.5 % (11.0-16.0); White Blood Count 8.3 X10*3/uL (4.8-10.8)
[2025-04-25 14:19] LABS: Anion Gap 13 (12-20); Blood Urea Nitrogen 46 mg/dL (9-16); Carbon Dioxide 28 mmol/L (22-29); Chloride 103 mmol/L (96-108); Estimated Glomerular Filt Rate 30; Iron 151 mcg/dL (45-160); Percent Iron Saturation 52 % (15-50); Sodium 140 mmol/L (135-145); Total Iron Binding Capacity 291 mcg/dL (228-428); Unsaturated Iron Binding 140 ug/dL
== END 2025-04-25 10:04 | disposition home or self-care (01) ==
LOC: HO.10HDL 10:03
PROVIDERS: Visit Provider Family Medicine
DX: I10 Essential (primary) hypertension (principal); D64.9 Anemia, unspecified
CPT/HCPCS: 36415; 80051; 82565; 83540; 84520; 85025

== ENCOUNTER 2025-05-29 09:43 | Outpatient (AMB) | payer MEDICARE, OTHER, SELFPAY ==
--- OUTSIDE RECORDS SUMMARY | 2025-04-16 12:55 | XMS_ITS ---
Author Name [facility] Organization [facility] Address [address] [place] [address] Care Team Providers Care Welder Explosion Name Role Phone JUANITA BIRCH Primary Care [...] Nov 06, 2016 MEDICAR E SUPPLEM E [id number] FRANCISRao MARQUES PATIENT MEDICARE (WNR) MEDICARE () PART A May 06, 2008 PART A [id number] [facility] [phone] Rao ODELL PATIENT MEDICARE (WNR) MEDICARE (M) PART B May 06, 2008 PART B [id number] [facility] Rao ODELL PATIENT MEDICARE (WNR) MEDICARE (M) PART A May 06, 2008 PART A [id number] [phone] Rao ODELL PATIENT MEDICARE (WNR) MEDICARE (M) PART B May 06, 2008 PART B [id number] LAFFERRao Estrella PATIENT Selected Encounter This section includes the information on record at [place] for the Encounter. Date/Time Encounter Type Encounter Description Reason Pro vider Source Apr 16, 2025 04:55 PM Outpatient Encounter ADMIN PAT ACTIVTIES (LUIS ENRIQUENONCT) [...] Date/Time Appointment Type Appointme nt Facility Name May 13, 2025 08:30 AM AMBULATORY - MEDICINE [facility] Jun 18, 2025 09:00 AM AMBULATORY - MEDICINE [facility] Sep 02, 2025 10:30 AM AM[facility]ULATORY - MEDICINE [facility] Lab Results: +/- 30 days of the encounter This section includes the Chemistry and Hematology Lab Results on record with [place] for the patient. Radiology Reports and Pathology Reports are provided separately, in subsequent sections. Lab Results This section contains the Chemistry/Hematology Results that were resulted 30 days before or 30 daysafter the date of the Encounter. Date/Time Source Result Type Result - Unit Interpretation Reference Range Specimen Type Comment Apr 11, 2025 09:31 AM [facility] HEMOGLOBIN A1C PANEL BLOOD Specimen Type: BLOOD Comment: Values obtained from A1C measurements can vary. For atypical A1C assays, a reported value of 7.0 could actually be between 6.72 and 7.28 if measured by a reference method. A reported value of 9.0 could actually be between 8.73 and 9.27. Ref: http://www.ngsp .org/CAPdata.as p Ordering Provider: IDA TEJEDA Report Released Date/Time: Feb 10, 2025 08:35 AM Reporting Lab: [address] [id number] Performing Lab: [address] [id number] HEMOGLOBIN A1C 8.2 H 4.0-5.6 Apr 11, 2025 09:31 AM [facility] CREATININE (eGFR 2020) SERUM Specimen Type: S LISA No comment entered. Ordering Provider: IDA TEJEDA Report Released Date/Time: Feb 10, 2025 08:35 AM Reporting Lab: [facility] [address] [facility] [address] Performing Lab: [facility] [address] [facility] [id number] CREATININE, Serum 1.94 mg/dL H 0.72-1.25 eGFR(CKD-EPI 2020) 34 mL/min L >60 Encounter Notes: All associated encounter notes This section contains the clinical notes associated to the Encounter. Date/Time Encounter Note(s) Provider Source Apr 16, 2025 04:55 PM PHARMACY NOTE: LOCAL TITLE: PHARMACY CUSTOMER CARE MEDICATION RENEWAL STANDARD TITLE: PHARMACY NOTE DATE OF NOTE: APR 16, 2025@16:55 ENTRY DATE: APR 16, 2025@16:55:48 AUTHOR: MIRA COSTA EXP COSIGNER: URGENCY: STATUS: COMPLETED Date: Apr Division: [place] Pt referred by Pharmacy Call Center for medication renewal: Non-controlled/maintenan ce medication Medications requested: [id number] NEEDLE,PEN 31G,8MM Defer to primary care provider To be mailed . Please review and renew if appropriate. *This note was generated by [facility]/[place] Pharmacy Customer Care. If you have any questions or need assistance, do not contact this author. Please refer all questions to your local, on-site pharmacy departments. /celina/ MIRA COSTA Cpht Mess Attendant, [place]/Pharmacy Customer Care Signed: 04/16/2025 16:56 Receipt Acknowledged By: 04/17/2025 08:19 /celina/ Ophelia Sheldon, KINGSLEY Registered Nurse (RN) 04/17/2025 08:09 /celina/ JUANITA BIRCH PA-C STAFF PHYSICIAN DESIZING MACHINE OFFBEARER MIRA COSTA [facility]
--- OUTSIDE RECORDS SUMMARY | 2025-05-24 23:59 | XMS_ITS | Continuity of Care Document ---
Author Organization [facility] Address [address] [place] [id number]- Care Team Providers Care Retail Department Supervisor Name Role Phone Khoi CALVILLO, Aldo Armstrong Primary Care Physician Encounter [facility] Date(s): 04/24/25 - 05/24/25 [facility] [address] [place] [id number]- Attending Physician: Raheem Chen Admitting Physician: Raheem [...] Physician Member Role: Primary Care Nurse Address: [address] [place] [phone]- Telecom: Name: July Duncan RN Position: S SN RN Member Role: Primary Care Nurse Name: Megan Geiger RN Position: S RN Member Role: Primary Care Nurse Name: Violet Francisco RN Position: S SN RN Member Role: Primary Care Nurse Name: Agustín Lala DO Position: [facility] Renal MD Member Role: Lifetime Consulting Physician Address: [address] [place], [place] [address] [place] [address]- Telecom: Name: Aldo Westfall MD Position: Reference Physician Member Role: PCP Address: [address] [facility], [address] [facility] [place] [address]- [place] Telecom: Name: Elle Rachel RN Position: S RN Member Role: Primary Care Nurse Name: Elicia Gimenez RN Position: S RN Member Role: Primary Care Nurse Care Team Related Persons Name: NANETTE ODELL Insurance Providers Guarantor name: MATHEW ODELL Health Plan Information #: 1 Payer: MEDICARE B Payer Identifier: YOSELIN Member Number: [id number] Group Number: [id number] Subscriber Identifier: [id number] Relationship to Subscriber: self Coverage Type: NA Coverage Verification Date: NA Telecom: NA Address: Health Plan Information #: 2 Payer: EDMUNDO PRAJAPATI Payer Identifier: YOSELIN Member Number: [id number] Group Number: [id number] Subscriber Identifier: [id number] Relationship to Subscriber: self Coverage Type: Medicare Other Coverage Verification Date: NA Telecom: NA Address:
[2025-05-29 10:03] VITALS: BP 128/56; PULSE 65; O2SAT 95; BMI 32.7
--- NOTE | 2025-05-29 10:03 | A.OFFVIS_ITS ---
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 The patient has underlying chronic respiratory failure and is currently using oxygen. He recently had a CT scan of the chest at [facility] demonstrating the ongoing fibrotic changes and pleural effusion. No concerning findings, although, will have to look at the CT scans from [facility]. In the meantime the last several days he started developing worsening respiratory complaints with worsening productive cough reason sputum. He also developed worsening shortness of breath and hypoxia and had to increase his oxygen to 4 L. he has used inhalers in the past without any significant improvement. In the office we did use a nebulizer and he did get some relief, although, he was still having expiratory wheezing. Patient also has been complaining of feeling warm and chills. Denies any sick contacts. 01/04/2022 the patient is here for pulmonary follow-up visit. Since we last spoke the patient did require quadruple bypass surgery. His cardiac status is better at this time. He continues with the oxygen between 2-4 L pulse. He is able to remove the oxygen at rest. He maintains a pulse ox above 90%. His shortness of breath is about the same. Ddun-rx-vbpwmkry severity. Denies any significant coughing or denies any significant chest pain. The patient did have a CT scan of the chest that was personally by me them still demonstrating the evidence of the asbestos related lung disease likely with some component of asbestos plaques and also some degree of asbestosis resulting in some interstitial lung disease. At this point appears that the disease is burnt-out. The patient does not require any additional prednisone. He does have a restrictive lung disease. And therefore resulting the oxygen requirements. Patient also has some nodular densities. The plan is to repeat the CT scan [address] scan is no different in a year's time that we can hold off on serial CT scans and follow him clinically. 05/24/2022 the patient is here for a pulmonary follow-up visit. the patient complains of dyspnea on exertion. The oxygen does help him. He has been having issues getting oxygen from his [employer] company. In the meantime in the office the patient has been using his oxygen at 4 L pulse. He typically decrease it to 2 L pulse when he is resting. In the office we did do a 6 minute walk test. The patient did appropriately well on the 4 L pulse with activity maintaining a pulse ox above 92%. 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 He has a bilateral pleural effusions also related to the asbestos disease. He is currently being evaluated by Cardiology regarding his underlying cardiovascular disease as well. the patient does need to have a CT scan of the chest to follow-up with his pulmonary nodules his asbestos related lung disease with asbestosis and pulmonary fibrosis. However, will go ahead and postpone the CT scan to his follow-up visit in the springtime. In the meantime if the patient develops any worsening symptoms prior to that he is to call so we can reassess on an earlier time. 11/14/2022 the patient is here for sick visit. The patient has been not feeling well since the last week of October. Started developing worsening cough in addition to shortness of breath. Moderate severity. He was given a course of prednisone which initially helped but then symptoms worsened. He has gotten very weak. He is currently in a wheelchair because very hard for him to walk. Complains of the shortness of breath. He is also very congested. He is bringing up some green grayish sputum. Difficult to expectorate. Moderate severity. His was concerned with his worsening respiratory decompensation and she did want to bring to the ER at some point. The patient was reluctant to do so. Therefore he is here today. We were able to take a listen to his lungs and he does have bilateral crackles but he does have interstitial lung disease from his fibrosis and is asbestos related lung disease. The patient did get a breathing treatment and was able to expectorate his sputum specimen for culture. He also underwent blood work in addition to a chest x-ray. I did briefly look at the x-ray it appeared that he had some slight increase hazy opacity in the left lower and left mid area in conjunction with his chronic disease. The final read was unchanged. However very difficult to assess the abnormal chest x-ray. The patient has been using the oxygen. His oxygen levels have been steady. He has not had to increasing. Therefore, will start the patient on antibiotics to treat him for pneumonia in addition to on lower course dose of prednisone. Will follow-up in a couple weeks. 12/08/2022 the patient is here for a pulmonary follow-up visit. Currently patient is doing better. He completed the antibiotics in the prednisone. He is back to his baseline therapy. He is back to his baseline. We did review his chest x-ray demonstrating bilateral airspace disease consistent with bronchopneumonia. We also reviewed his blood work. We also did try to send a sputum culture although is contaminated by saliva. It could not be process. The patient continues uses oxygen with good effect. Continues to have dyspnea on exertion anpu-ov-fbalklau severity. Otherwise the patient is at baseline. 06/07/2023 the patient is here for pulmonary follow-up visit. The patient overall is feeling better. He had a bout of a COPD exacerbation and bronchitis which required antibiotics and prednisone. He did improve significantly after the prednisone antibiotics. He is back to his baseline. May was a talk month however because was very humid and hot. He spent a lot of time in the AC. He continues uses oxygen 2 L pulse. He did wonder about a portable oxygen concentrator. I did not advise him for 1 unless he is doing traveling where he may need additional portability outside of the home. But you for the most part he is staying local. The patient did have a chest x-ray which I personally reviewed in November demonstrating increased interstitial lung disease and bilateral pleural effusions. Will go ahead and have him repeat the x-ray sometime in the fall. In addition to this he does use CPAP. CPAP therapy continues to be affecting beneficial. He does get supplies from [employer]. 02/07/2024 the patient is here for a pulmonary follow-up visit. The patient compl ains of worsening dyspnea on exertion. He has been noticing he has been having to use his oxygen more regularly. Sometimes he was able to be without the oxygen but now he notis prescribed. Denies any worsening lower extremity edema. He has also been using his respiratory medications. The patient has not had an x-ray in about a year. At this point will request a chest x-ray. Patient also has renal insufficiency so we have to be very careful but he may benefit from couple days of doubling up on the diuretic to try to improve his volume status. The patient also will benefit from pulmonary rehabilitation. Will have him undergo pulmonary function studies in order for him to start pulmonary rehab at this time. 06/07/2024 patient is here for a pulmonary follow-up visit. Overall he is doing well. He did start pulmonary rehabilitation he has found that is been affecting beneficial. He has finish the face to program and will start now the face 3. He will continue with his respiratory medications as prescribed. He did have a chest x-ray which I personally reviewed without any significant changes in the pleural thickening as he does have a history asbestos. His oxygen requirements are about the same. Otherwise patient is doing well on the current therapy. No additional imaging warranted. Will follow-up in 6-8 months. If patient has any issues prior to that he will call for an earlier assessment. 05/29/2025 the patient is here for pulmonary follow-up visit. Overall he is doing okay although tired. He did under go a trans vascular aortic valve replacement and only complicated by atrial fibrillation afterwards he needed to have a cardioversion. Did afterwards he try going to cardiac rehab but she was just too tired he could not completed. From a breathing standpoint he has been doing okay is been using his oxygen. He has as a oxygen tanks with a conserving device valve. Seems to work well for him he is considering a portable oxygen concentrator. He will let me know if he want to go through [facility] or if he is going to just keep what he has for smaller conserving device tanks. I did suggest that he keep but he has since his easier to manage. He can always consider buying a smaller unit that we more beneficial to him. In the meantime he did have a CT scan of the chest that [facility] as he was going through his valve replacement. I did review it with him. He does have the significant asbestos related lung disease with evidence of asbestosis that he had previously along with the asbestos plaques and the benign asbestos pleural effusions. No evidence of mesothelioma that I could appreciate. Still his lungs are limited. His last PFTs from 2023 demonstrated a total lung capacity of 45% predicted. He needs to work on deep breathing exercises really expand his lungs. Will plan to follow-up in the springtime in the meantime he will continue with his current respiratory therapy. He does not really use inhalers he did not find them help jerry. [facility] Medical History Paroxysmal atrial fibrillation Coronary artery disease Aortic stenosis Atrial fibrillation, new onset Hypoxia Pulmonary nodules Chronic restrictive lung disease Chronic respiratory failure Pulmonary fibrosis Asbestosis Surgical History History of open heart surgery Family History Mother Ovarian cancer Father Heart attack Brother Heart attack Sister Diabetes Social History Are you a primary prompt care rn to a significant other at home: No Do you presently have visiting nurse or other home services: No Alcohol intake: former Year quit: 1989 Patient Tobacco Use Status: Former Tobacco user Tobacco use type: Cigarette Years Smoked: 8 Years service: Yes Review of Systems Const Denies chills, Denies fatigue, Denies fever(s), Denies weight gain and Denies weight loss ENT Denies dizziness, Denies lip swelling and Denies tongue swelling Card Denies chest pain, Denies leg edema, Denies lightheadedness, Denies palpitations, Denies dyspnea on exertion, Denies orthopnea and Denies other Resp Denies cough and Denies dyspnea on exertion GI Denies hematochezia and Denies change in stool character Musc Denies abnormal gait, Denies muscle weakness, Denies numbness, Denies radiating pain into limb and Denies tingling Neuro Denies abnormal gait, Denies dizziness, Denies numbness and Denies tingling Psych Denies no additional complaints Endo Denies fatigue and Denies palpitations Bi/Lymph Denies easy bleeding and Denies lymphadenopathy Aller/Immun Denies lip swelling and Denies tongue swelling Physical Exam Vital Signs: Last Vital Signs Pulse 65 05/29/25 10:03 BP 128/56 L 05/29/25 10:03 Pulse Ox 95 05/29/25 10:03 Oxygen Delivery Method Nasal Cannula 05/29/25 10:03 Oxygen Flow Rate 3 05/29/25 10:03 BMI result Body Mass Index 32.7 Const General: alert HEENT General nose exam: Abnormal external nose present and Nasal discharge present Neck Neck: Yes normal visual inspection, Yes full ROM and Yes no lymphadenopathy Chest Chest palpation & inspection: normal inspection of the chest Resp Auscultation: no crackles, no rales and diminished lung sounds Cardio Rate: regular rate Rhythm: regular rhythm Heart sounds: S1 normal heart sound present and S2 normal heart sound present GI Palpation (GI): Soft to palpation and nontender Auscultation: normal bowel sounds General: Yes no CVA tenderness Back/Spine/Pelvis Back: no CVA tenderness Assessment & Plan Assessment & Plan (1) Pulmonary fibrosis: Code(s): J84.10 - Pulmonary fibrosis, unspecified Category: Medical (2) Asbestosis: Code(s): J61 - Pneumoconiosis due to asbestos and other mineral fibers Category: Medical (3) Chronic respiratory failure: Code(s): J96.10 - Chronic respiratory failure, unspecified whether with hypoxia or hypercapnia Category: Medical Qualifiers: Respiratory failure complication: hypoxia Qualified Code(s): J96.11 - Chronic respiratory failure with hypoxia (4) Chronic restrictive lung disease: Code(s): J98.4 - Other disorders of lung Category: Medical (5) Pulmonary nodules: Code(s): R91.8 - Other nonspecific abnormal finding of lung field Category: Medical Plan Continue oxygen supplementationn Nebulized therapy with DuoNeb q.i.d. consider Budesonide neb daily cont exercise regimen F/U 8-12 months Coding Level of Care Code Est Pt Level 4 (56308) Complex EM visit Add On G2211 Diagnoses Pulmonary fibrosis J84.10 Asbestosis J61 Chronic respiratory failure with hypoxia J96.11 Respiratory failure complication: hypoxia Chronic restrictive lung disease J98.4 Pulmonary nodules R91.8 Time Spent (min) 18
--- OUTSIDE RECORDS SUMMARY | 2025-05-29 10:21 | XMS_ITS | Patient Health Record ---
Author Organization [facility] Address [address] [place] [id number] Care Team Providers Care Outside Solar Sales Consultant Name Role Phone Khoi (RETIRED) Aldo CALVILLO Primary Care Provider Unavailable Bright Rey Unavailable [phone] Reason For Referral No Information Medications Medication SIG (Take, Route, Fr equency, Duration) Notes Start Date End Date Status Sertraline HCl 100 MG 1 tablet Orally Once a day Active metFORMIN HCl 500 MG 1 tablet with meals Orally Twice a day Active Aspir-81 81 MG 1 tablet Orally Once a day Active Iron 325 (65 Fe) MG 1 tablet Orally Once a day Active Famotidine 10 MG 1 tablet as needed O rally Once a day Active Lisinopril 10 MG 1 tablet Orally Once a day Active Immunizations Vaccine Route Administration Date Status Comme nts Flu vaccine no Preserv 3 and > Unknown 08/30/2017 Admin istered Social History Tobacco Use: Social History Observation Description Date Details (start date - stop date) Former Smoker NA - NA Tobacco Use/Smoking Question Answer Notes Patient is a former smoker How long has it been since you last smoked? > 10 years Alcohol Screen Question Answer Notes Did you have a drink containing alcohol in the p ast year? No Points 0 Interpretation Negative Section Notes: Nonsmoker; no sig. alcohol Problems Problem Type SNOMED Code ICD Code Onset Dates Problem Status W/U Status Risk Notes Problem 384802363 Encounter for screening for malignant neoplasm of colon (Z12.11) Active confirmed Problem 281345253 History of adenomatous polyp of colon (Z86.010) Active confirmed Problem 821405112 Long-term use of aspirin therapy (Z79.82) Active confirmed Plan Of Treatment Future Test Test Name Order Date COLONOSCOPY 04/24/2018 Insurance Providers Payer Name Payer Address Payer Phone Subscriber Number Group Number Insured Name Patient Relationship to Insured Coverage Start Date Coverage End Date MED[place]ARE OF [place] [address] [place] [id number] CASS MATHEW Self - patient is the insured MONTICELLO DEBBYGRKELLY [address] [place] [phone] [id number] FRANCISNORMMATHEW Estrella Self - patient is the insured Medical (General) History Medical History History ICD Code NIDDM Denies [place],CVA,renal disease Asbestosis--[place] Grapeword---wears oxygen as ne eded--he sees Dr. Bello Anxiety/Depression HTN GERD---takes Famotidine with good relief Sleep apnea--uses CPAP One small tubular adenoma re moved in 2000--negative followup colonoscopy in 2006 other than some diverticulosis and internal hemorrhoids Surgical History Surgery Date(Month/Year) TURP Cataract-lens implants both eyes
== END 2025-05-29 10:44 | disposition home or self-care (01) ==
LOC: HO.HPS 09:44
PROVIDERS: PCP Family Medicine; Visit Provider Hospitalist
DX: J84.10 Pulmonary fibrosis, unspecified (principal); J61 Pneumoconiosis due to asbestos and other mineral fibers; J96.11 Chronic respiratory failure with hypoxia; J98.4 Other disorders of lung; R91.8 Other nonspecific abnormal finding of lung field
CPT/HCPCS: 99214; G2211

== ENCOUNTER → 2025-05-29 09:43 | Outpatient (BNVA) | payer MEDICARE, OTHER, SELFPAY | PROVIDERS: PCP Family Medicine; Visit Provider Hospitalist | DX: J84.10 Pulmonary fibrosis, unspecified (principal); J96.11 Chronic respiratory failure with hypoxia; Z99.81 Dependence on supplemental oxygen; J98.4 Other disorders of lung; J91.8 Pleural effusion in other conditions classified elsewhere; Z79.899 Other long term (current) drug therapy; Z87.891 Personal history of nicotine dependence | CPT/HCPCS: 99212 ==

== ENCOUNTER 2025-08-08 10:17 | Outpatient (AMB) | payer MEDICARE, OTHER, SELFPAY ==
--- OUTSIDE RECORDS SUMMARY | 2025-08-06 09:15 | XMS_ITS | Encounter Summary ---
Author Organization [facility] Address [address] [place] [phone] Care Team Providers Care Drawer In Hand Name Role Phone Physician, Pcp Unknown Primary Care Provider Chel vailable Reason for Visit * Reason Comments Wound Care Encounter Details Date Type Department Care Team (Late st Contact Info) Description 08/06/2025 9:15 AM EDT Office Visit [facility] [address] [place] [id number] Dave Lazo, [place] [address] [place] [address] Skin tear of left forearm without complication, subsequent encounter (Primary Dx); Skin ulcer of forearm with fat layer exposed; Skin tear of left hand without complication, subsequent encounter; Skin ulcer of hand, limited to breakdown of skin; Skin tear of right elbow without complication, subsequent encounter; Skin ulcer of upper arm, limited to breakdown of skin Social History Tobacco Use Types Packs/Day Years Used Date Smoking Tobacco: Former Smokeless Tobacco: Never Alcohol Use Standard Drinks/Week Comments Not Currently 0 (1 standard drink = 0.6 oz pur e alcohol) Interpersonal Safety Answer Date Record ed Physical Abuse Unrecognized value 07/20/2025 Verbal Abuse Unrecognized value 07/20/2025 Sex and Gender Information Value Date Recorded Sex Assigned at Not on file Legal Sex Male 9:51 PM EST Gender Identity Not on file Sexual Orientation Not on file documented as of this encounter Last Filed Vital Signs Vital Sign Reading Time Taken Comments Blood Pressure 135/69 08/06/2025 9:23 AM EDT Pulse 73 08/06/2025 9:23 AM EDT Temperature 35.6 C (96.1 F) 08/06/2025 9:23 AM EDT Respiratory Rate 16 08/06/2025 9:23 AM EDT Oxygen Saturation 96% 08/06/2025 9:23 AM EDT 3L 02 via Mac Inhaled Oxygen Concentration - - Weight - - Height - - Body Mass Index - - documented in this encounter Functional Status * Are you deaf or do you have serious difficulty hearing? Answer Date of Assessment Author No 07/20/2025 11:32 AM Ama Sarkar RN * Are you blind or do you have serious difficulty seeing, even when wearing glasses? Answer Date of Assessment Author No 07/20/2025 11:32 AM Ama Sarkar RN * Do you have serious difficulty walking or climbing stairs? Answer Date of Assessment Author No 07/20/2025 11:32 AM Ama Sarkar RN * Do you have serious difficulty dressing or bathing? Answer Date of Assessment Author No 07/20/2025 11:32 AM Ama Sarkar RN * Because of a physical, mental, or emotional condition, do you have serious difficulty doing errandsalone such as visiting the doctor? Answer Date of Assessment Author No 07/20/2025 11:32 AM Ama Sarkar RN documented as of this encounter Mental Status * Because of a physical, mental, or emotional condition, do you have serious difficulty concentrating, remembering, or making decisions? (5 years old or older) Answer Entry Date Author No 07/20/2025 11:32 AM Ama Sarkar RN documented in this encounter Progress Notes * Michelle Lizarraga RN - 08/06/2025 9:15 AM EDT PROVIDER ORDERS Go to ER if you are presenting with fever, chills, increased redness, pain, swelling, warmth aroundwound area and/or foul smelling odor. If you have any questions or concerns, please contact the [facility] at . Follow up(s)/ Referrals: N/A Nursing Home: Home care: [facility] Additional Orders: Increase protein in your diet to help promote wound healing Lidocaine Orders: Apply Lidocaine 5% Topical Ointment prior to debridements at Wound Care appointments Edema Control: (If your compression wrap(s) feel to tight, please elevate your leg(s) about heart level. If your wrap(s) are becoming painful and/or you loose sensation of toes/ are having toe discoloration (a change from your baseline), please remove / unwrap compression and notify [facility] at . ) 4 Daljit Wrap to left arm Offloading: N/A Negative Pressure Wound Therapy: (If wound vac is off/non functioning for more than 2 hours, please remove vac dressing, apply a wetto dry dressing and notify your home care agency) N/A Cellular/Tissue Based Products: N/A Bathing / Showering / Hygiene: Ok to shower with dressing on, then change dressing right after. Non-wound Condition/ Other Skin Care: N/A Wound Location(s): Wound #1 (Left arm): Cleanser: Cleanse with Normal Saline Periwound: N/A Topical: Medihoney gel- Apply a thin layer to wound bed. (Sample tube given on first use. Availableover the counter.ie. Manuka honey wound gel, therahoney) Primary dressing: N/A Secondary dressinx4 woven gauze (non-sterile) Secure with: 4 conforming gauze roll , 1 paper tape Compression Therapy: 4 Daljit Wrap Dressing Change Frequency: Every Other Day Wound #2 (Right elbow): -Wound is healed Wound #3 (Left hand): -Wound is healed * Dinah Mcclelland RN - 08/06/2025 9:15 AM EDT Discharge Patient directed to check out at front end ui developer and collect visit summary with wound care directions and book follow up as directed. Dressings applied: Wound #1 (Left arm): Cleanser: Normal Saline Topical: Medihoney gel Secondary dressinx4 woven gauze Secure with: 4 conforming gauze roll , 1 paper tape Compression Therapy: 4 Daljit Wrap Dressing technique was demonstrated and explained. Patient questions answered. Pt discharge from wound care center without issue or incidence. documented in this encounter Plan of Treatment Upcoming Encounters Date Type Department Care Team (Late st Contact Info) Description 08/13/2025 10:30 AM EDT Clinical Support [facility] [address] [place] [phone] 08/20/2025 9:15 AM EDT Clinical Support [facility] [address] [place] [phone] 08/27/2025 9:15 AM EDT Clinical Support [facility] [address] [place] [phone] 09/03/2025 9:15 AM EDT Clinical Support [facility] [address] [place] [phone] Pending Results Name Type Priority Associated Diagnoses Date /Time Debridement Skin Tear Left Arm Procedures Routine Skin tear of left forearm without complication, subsequent encounter Skin ulcer of forearm with fat layer exposed 08/06/2025 9:15 AM EDT documented as of this encounter Goals Goal Patient Goal Type Associated Problems Recent Progress Patient-Stated? Author Decrease Wound Volume by X% by date (in notes) Care Plan Impaired Tissue Improving(11/2024 9:48 AM EDT) Dinah Pepper RN Patient and Caregiver Understand Wound Care Education Care Plan Impaired Tissue On track( 9:48 AM EDT) Dinah Pepper RN Wound volume breakdown reduced by X% by week 4 Care Plan Impaired Tissue No Dinah Mcclelland RN Wound volume breakdown reduced by X% by week 8 Care Plan Impaired Tissue Dinah Pepper RN Wound volume breakdown reduced by X% by week 12 Care Plan Impaired Tissue No Dinah Mcclelland RN Quit using tobacco (cigarettes, smokeless, etc) Care Plan Education needed on impact of smoking on wound No Dinah Mcclelland RN Reduce tobacco use (cigarettes, smokeless, etc) Care Plan Education needed on impact of smoking on wound Dinah Pepper RN Decrease Wound Volume by X% by date (in notes) Care Plan Education needed on impact of smoking on wound Dinah Pepper RN Patient and Caregiver Understand Wound Care Education Care Plan Education needed related to ulceration/compr omised skin integrity. No Dinah Mcclelland RN documented as of this encounter Procedures Procedure Name Priority Date/Time Associated Diagnosis Comments DEBRIDEMENT Routine 08/06/2025 9:15 AM EDT Skin tear of left forearm without complication, subsequent encounter Skin ulcer of forearm with fat layer exposed documented in this encounter Visit Diagnoses Diagnosis Skin tear of left forearm without complication, subsequent encounter- Primary Skin ulcer of forearm with fat layer exposed Skin tear of left hand without complication, subsequent encounter Skin ulcer of hand, limited to breakdown of skin Skin tear of right elbow without complication, subsequent encounter Skin ulcer of upper arm, limited to breakdown of skin documented in this encounter Additional Health Concerns Active Problems Noted Date Diagnosed Date Impaired Tissue 07/30/2025 Education needed on impact of smoking on wound 0 07/30/2025 Education needed related to ulceration/compromised skin integrity. 07/30/2025 documented as of this encounter Care Teams Drawer In Hand Relationship Specialty Start Date End Date Physician, Pcp Unknown PCP - General 07/20/25 documented as of this encounter
--- NOTE | 2025-08-08 10:24 | MHC.PC.OV ---
Vital Signs 08/08/25 10:35 Height 5 ft 10 in Weight 221 lb BMI 31.7 BP 134/68 Blood Pressure Location Rt brachial Position Sitting Respiration 18 Pulse 71 Pulse Source Pulse Oximeter Temp 97.7 F Temp Source Temporal Artery Scan Pulse Oximetry (%) 93 Oxygen Delivery Method Room Air Intake Visit Reasons: [id number] in folder Ash Worker Required: No Accompanied by: Self / Same As Patient Allergies No Known Allergies (No Known Allergies*) Allergy (Verified 08/08/25 10:24) Medication List - Last Reconciled 08/08/25 by Noel Rock MD apixaban (Eliquis) 2.5 mg PO BID ascorbate calcium (vitamin C) 500 mg PO DAILY atorvastatin 80 mg PO DAILY bupropion HCl SR 150 mg PO DAILY famotidine 20 mg PO DAILY ferrous sulfate 325 mg PO DAILY insulin glargine (Lantus U-100 Insulin) 30 units subcut BEDTIME magnesium 500 mg PO DAILY metoprolol tartrate 12.5 mg PO ONCE multivitamin 1 tab PO DAILY nebulizers As directed omega 1-fjw-frc-fish oil 120-180-500 mg (Fish Oil) caps PO Oxygen Home Use As directed sertraline 100 mg PO BID torsemide 20 mg PO DAILY vitamin E (dl, acetate) 45 mg PO DAILY Tobacco use date assessed: 08/08/25 Fall risk assessment: No Falls in past year Last assessed Fall Risk: 08/08/25 Dental Screening Dental Screen Date: 08/08/25 Did you have a dental visit in the last 12 months?: Yes Did you have a dental problem in the last 6 months where you did not have access to dental care?: No Was dental information given to patient?: Patient has dentist HPI HPI Comments History of Present Illness Details The patient is an 80-year-old male presenting for a wellness visit and evaluation of his chronic medical conditions. His chronic conditions include atrial fibrillation for which he is on Eliquis, hyperlipidemia managed by atorvastatin, and anxiety for which he is on bupropion and sertraline. The patient also has type 2 diabetes mellitus and reports taking 30 units of insulin at night, which he adjusts based on his evening blood glucose levels. He further supplements his diabetes management with a new medication, likely [facility]zin, at [facility]. 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 He underwent aortic valve replacement recently and had previous coronary artery bypass grafting surgery involving four vessels. He follows a tight regimen for hypertension and takes metoprolol tartrate. 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 He also reports adjustment of his insulin depending on his blood glucose readings. Additionally, he has an established history of essential hypertension and was found to have stage 4 chronic kidney disease during this visit, a condition he was not previously aware of. The patient has a familial history of heart disease and ovarian cancer. He denies any active symptoms related to these chronic conditions now, and expresses his commitment to following up with [facility] doctors regularly, ensuring [facility]. Medical History: - Atrial Fibrillation - Hyperlipidemia - Anxiety - Diabetes Mellitus Type 2 - Gastroesophageal Reflux Disease (GERD) - Chronic Heart Failure - Asbestosis - Pulmonary Fibrosis - Aortic Valve Stenosis - Coronary Artery Disease - Essential Hypertension - Chronic Kidney Disease Stage 4 Surgical History: - Aortic valve replacement surgery - Coronary artery bypass graft (four vessels) Medications: - Eliquis 2.5 mg daily for atrial fibrillation - Atorvastatin 80 mg daily for hyperlipidemia - Bupropion for anxiety - Sertraline 200 mg for anxiety - Famotidine 20 mg for GERD - Insulin 30 units at night for diabetes mellitus - Empagliflozin (Jardiance), half a pill before evening meal for diabetes mellitus - Metoprolol tartrate 12.5 mg daily for atrial fibrillation - Torsemide 20 mg daily for fluid management Family History: - Father from heart disease - Mother at 84 years old, maternal relatives lived past 100 - Mother had ovarian cancer Diagnostic Results: - Last recorded blood sugar level in October last year: 8% - Morning blood glucose: 122 - Blood pressure: 130/68 Social History: - Living with - [place], 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, 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 - Quit alcohol in 1985 - Still drives and maintains an active lifestyle [facility] Medical History (Updated 08/08/25 @ 10:59 by Noel Rock MD) Anxiety Atrial fibrillation CKD stage 4 secondary to hypertension Diabetes Paroxysmal atrial fibrillation Coronary artery disease Aortic stenosis Atrial fibrillation, new onset Hypoxia Pulmonary nodules Chronic restrictive lung disease Chronic respiratory failure Pulmonary fibrosis Asbestosis Surgical History (Updated 08/08/25 @ 10:56 by Noel Rock MD) History of colonoscopy (~06/20/18) History of open heart surgery Family History Mother Ovarian cancer Father Heart attack Brother Heart attack Sister Diabetes Social History Housing: Condominium Are you a primary housekeeper child care to a significant other at home: No Do you presently have visiting nurse or other home services: No Alcohol intake: former Year quit: 1989 Patient Tobacco Use Status: Former Tobacco user Tobacco use type: Cigarette Years Smoked: 8 Years - Quit at 22yo e-Cigarette/Vaping Use: Never Used service: Yes Current occupational status: retired Questionnaire PHQ-9 Over the last 2 weeks, how often have you been bothered by any of the following problems? 1. Little interest or pleasure in doing things: not at all 2. Feeling down, depressed, or hopeless: not at all 3. Trouble falling or staying asleep, or sleeping too much: not at all 4. Feeling tired or having little energy: not at all 5. Poor appetite or overeating: not at all 6. Feeling bad about yourself - or that you are a failure or have let yourself or your family down: not at all 7. Trouble concentrating on things, such as reading the newspaper or watching television: not at all 8. Moving or speaking so slowly that other people could have noticed. Or the opposite - being so fidgety or restless that you have been moving around a lot more than usual: not at all 9. Thoughts that you would be better off or of hurting yourself in some way: not at all Total score: 0 Depression Screening Interpretation: Negative Depression Screening Done: Yes 56259 - PHQ-9 Billing: Yes Source: Developed by Drs. Bright Vargas, Leah Walker, Wale Knox and colleagues, with an educational kwame from [employer]. Thrive Questionnaire Date Thrive assessed: 08/08/25 I am a: Patient What is your living situation today?: I have a steady place to live Within the past 12 months, did the food you bought not last and you didn't have the money to get more?: Never true Within the past 12 months, did you worry whether your food would run out before you got money to buy more?: Never true Do you have trouble paying for medicines?: No Do you have trouble getting transportation to medical appointments?: No Do you have trouble paying your heating and electricity bill?: No Do you have trouble taking care of your child, family member or friend?: No Do you have trouble with day-to-day activities such as bathing, preparing meals, shopping, managing finances, etc.?: No Are you currently unemployed and looking for a job?: No Are you interested in more education?: No THRIVE Score: 0 AUDIT C Alcohol Use Questionnaire (AUDIT-C) 1. How often do you have a drink containing alcohol?: Never 3. How often do you have six or more drinks on one occasion?: Never Total Score: 0 Score Reviewed/Action Taken: Yes GUI-7 AMB Questionnaire GUI-7 Date GUI - 7 assessed: 08/08/25 Feeling nervous, anxious, or on edge: 0 = Not at all Not being able to stop or control worryin = Not at all Worrying too much about different things: 0 = Not at all Trouble relaxin = Not at all Being so restless that it is hard to sit still: 0 = Not at all Becoming easily annoyed or irritable: 0 = Not at all Feeling afraid as if something awful might happen: 0 = Not at all Total GUI-7 score (0-4 normal; 5-9 mild; 10-14 moderate; 15-21 severe): 0 Source: Developed by Drs. Bright Vargas, Leah Walker, Wale Knox and colleagues, with an educational kwame from [employer]. GUI-7 Assessment Billing GUI-7 Assessment Tool: GUI-7 Assessment 10477 Review of Systems Const Details: - Cardiovascular: Denies current issues, monitoring AFib with Eliquis - Endocrine: Denies hyper- or hypo-glycemic episodes, adjusts insulin intake based on blood sugar levels - Gastrointestinal: Denies active heartburn, but continues famotidine - Respiratory: Denies recent exacerbation of pulmonary conditions - Renal: Unaware of CKD stage 4 prior to this visit All systems reviewed & are unremarkable except as reviewed in HPI and above Physical exam (Primary Care) Vital Signs: Last Vital Signs Temp 97.7 F 08/08/25 10:35 Pulse 71 08/08/25 10:35 Resp 18 08/08/25 10:35 BP 134/68 08/08/25 10:35 Pulse Ox 93 08/08/25 10:35 Oxygen Delivery Method Room Air 08/08/25 10:35 BMI result Body Mass Index 31.7 Tobacco/Smoking Status: Tobacco use Status Tobacco use date assessed 08/08/25 08/08/25 10:39 Patient Tobacco Use Status Former Tobacco user 08/08/25 10:25 Tobacco use type Cigarette 08/08/25 10:25 e-Cigarette/Vaping Use Never Used 08/08/25 10:39 PHQ-9: PHQ-9 Score PHQ-9: Total score 0 08/08/25 10:53 Depression Screening Interpretation: Negative Thrive Assessment: Date of Thrive Assessment Date Thrive assessed 08/08/25 08/08/25 10:53 Const Other: General: Alert and oriented, Well nourished, No acute distress. Eye: Pupils are equal, round and reactive to light, Intact accommodation, Extraocular movements are intact, Normal conjunctiva, Vision unchanged. HENT: Normocephalic, Atraumatic, Tympanic membranes are clear, Normal hearing, Oral mucosa is moist, No pharyngeal erythema, Ear canals patent. Respiratory: Lungs CTA bilaterally, No wheeze, Respirations are non-labored. Cardiovascular: Regular rate, Regular rhythm, S1 auscultated, S2 auscultated, No murmur, Good pulses equal in all extremities, Normal peripheral perfusion, No edema. Gastrointestinal: Soft, Non-tender, Non-distended, Normal bowel sounds, No organomegaly. Musculoskeletal: Normal range of motion, Normal strength, No tenderness, No swelling, No deformity, Normal gait. Integumentary: Warm, Dry, [place], Intact, Skin lesions on forehead. Neurologic: Alert, Oriented, Normal sensory, Normal motor function, No focal defects, Cranial Nerves II-XII are grossly intact, Normal deep tendon reflexes. Psychiatric: Cooperative, Appropriate mood & affect, Normal judgment. 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 Diabetes mellitus complication status: without complication CKD stage 4 secondary to hypertension I12.9; N18.4 Paroxysmal atrial fibrillation I48.0 Atrial fibrillation type: paroxysmal Anxiety F41.9 Additional Codes GUI-7 Assessment Billing - GUI-7 Assessment Tool: GUI-7 Assessment 00204 ([id number]) PHQ-9 - 51344 - PHQ-9 Billing: Yes ([id number]) Time Spent (min) 55 Comment Review of external records, labs, medications Assessment & Plan Assessment & Plan (1) Hypertension: Comment: - Maintain current hypertensive therapy with metoprolol Code(s): I10 - Essential (primary) hypertension Category: Medical Qualifiers: Hypertension type: unspecified Qualified Code(s): I10 - Essential (primary) hypertension (2) S/P TAVR (transcatheter aortic valve replacement): Comment: - Previously had severe aortic stenosis and underwent TAVR in January of this year, cardiology notes reviewed. Code(s): Z95.2 - Presence of prosthetic heart valve Category: Surgical (3) Hx of CABG: Comment: 2019 BAXTER to LAD, GSV to the diagonal, radial artery to the ramus intermedius, GSV to the posterior descending branch of left circumflex. 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 He does actively follow with [facility] and has been stable since. He is due to follow up with them and sprain. Code(s): J84.10 - Pulmonary fibrosis, unspecified Category: Medical (5) Diabetes: Comment: - Continue insulin therapy with patent?s adjustment based on evening glucose readings. (30U QHS) - Continue Jardiance 12.5mg Daily as prescribed. - Monitor A1c levels regularly, advise bringing results to primary care follow-ups. 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 - Baseline creatinine between 1.9 and 2.1 - Discussed significant vigilance with blood pressure and glycemic control. - Recommended nephrology referral for comprehensive CKD management (Patient denied [facility] and would like to [facility] at [facility]) Code(s): I12.9 - Hypertensive chronic kidney disease with stage 1 through stage 4 chronic kidney disease, or unspecified chronic kidney disease; N18.4 - Chronic kidney disease, stage 4 (severe) Category: Medical (7) Atrial fibrillation: Comment: - Continue Eliquis for anticoagulation to reduce stroke risk. - Continue metoprolol tartrate 12.5 mg daily for rate control. Code(s): I48.91 - Unspecified atrial fibrillation Category: Medical Qualifiers: Atrial fibrillation type: paroxysmal Qualified Code(s): I48.0 - Paroxysmal atrial fibrillation (8) Anxiety: Comment: Continue current therapy with sertraline and bupropion. Code(s): F41.9 - Anxiety disorder, unspecified Category: Medical Plan: Healthcare maintenance: - Regular monitoring and control of blood pressure and blood glucose are emphasized. - Continuation of exercise and physical activity to enhance cardiovascular health. - Follow-up with pulmonology clinic for lung function and health. - Ensure scheduled nephrology evaluation due to CKD stage 4. Patient was informed and verbally consented to the use of an ambient scribe for clinic note documentation during this visit. Plan During the consultation, I discussed with the patient the importance of monitoring his chronic conditions tightly, particularly in terms of maintaining adequate glycemic control and blood pressure management, to mitigate potential complications related to his CKD. The introduction of a nephrology referral was proposed to align his renal care. I clarified the importance of continued adherence to his current medication regimen for atrial fibrillation, diabetes, and anxiety while maintaining cardiovascular health. We talked about his current skin lesions, and I suggested maintaining proper skin care. The potential for family support in managing his health conditions at home was acknowledged, recognizing his spouse's involvement. We discussed the necessity of regular follow-ups with his [facility] healthcare providers to ensure comprehensive care coverage and compliance with his therapy. I encouraged him to maintain an active lifestyle and continue with his appointments and health monitoring. Patient Instructions: - Keep taking all current medications as discussed. - You should see a kidney doctor, possibly through the [facility], for stage 4 kidney disease. - Take Jardiance and insulin as instructed, adjusting insulin calls if the evening glucose is above 200. - [facility] with any reports you have. - Continue checking morning and evening blood sugar levels. - Maintain your active lifestyle and ensure you're managing any appointments. - If you are unsure or if symptoms arise, please contact medical services.
[2025-08-08 10:35] VITALS: BP 134/68; PULSE 71; RESP 18; TEMP 36.5; O2SAT 93; BMI 31.7
--- OUTSIDE RECORDS SUMMARY | 2025-08-08 11:08 | XMS_ITS | Clinical Summary ---
Author Organization [facility] Address [address] [place] [phone] Phone Care Team Providers Care Branch Credit Counselor Name Role Phone Physician, Pcp Unknown Primary Care Provider Chel vailable Allergies No known active allergies Medications atorvastatin (LIPITOR) 80 mg tablet Take 1 tablet (80 mg total) by mouth 1 (one) time each day. 0 Active buPROPion XL (WELLBUTRIN XL) 150 mg 24 hr tablet Take 1 tablet (150 mg total) by mouth 1 (one) time each day. 2 Active famotidine (PEPCID) 20 mg tablet Take 1 tablet (20 mg total) by mouth 1 (one) time each day if needed. 3 Active metoprolol tartrate (LOPRESSOR) 25 mg tablet Take 0.5 tablets (12.5 mg total) by mouth 1 (one) time each day. 9 Active sertraline (ZOLOFT) 100 mg tablet Take 1 tablet (100 mg total) by mouth 2 (two) times a day. 3 Active torsemide (DEMADEX) 20 mg tablet Take 1 tablet (20 mg total) by mouth 1 (one) time each day. 9 Active insulin glargine (LANTUS SoloStar) 100 unit/mL (3 mL) injection pen Inject 32 Units under the skin 1 (one) time each day in the morning. 9 Active apixaban (ELIQUIS) 5 mg tablet Take 1 tablet (5 mg total) by mouth 2 (two) times a day. Active ezetimibe (ZETIA) 10 mg tablet Take 1 tablet (10 mg total) by mouth 1 (one) time each day. 07/20/20 25 Discontinue d(Therapy completed) SITagliptin phosphate (JANUVIA) 50 mg tablet Take 1 tablet (50 mg total) by mouth 1 (one) time each day. 07/20/20 25 Discontinue d(Therapy completed) amoxicillin-cla vulanate (AUGMENTIN) 875-125 mg per tablet Take 1 tablet by mouth 2 (two) times a day for 10 days. 20 each 08/02/20 25 Active Problems Problem Noted Date Diagnosed Date Skin tear of left forearm without complication 0 07/30/2025 Skin tear of right elbow without complication Skin tear of left hand without complication 07/08 Skin ulcer of forearm with fat layer exposed Skin ulcer of upper arm, limited to breakdown of skin 07/30/2025 Skin ulcer of hand with fat layer exposed 2024 Wound cellulitis 07/20/2025 Encounters Date Type Department Care Team Description 08/06/2025 9:15 AM EDT Office Visit [facility] [address] [place] [phone] Dave Lazo PA Skin tear of left forearm without complication, subsequent encounter (Primary Dx); Skin ulcer of forearm with fat layer exposed; Skin tear of left hand without complication, subsequent encounter; Skin ulcer of hand, limited to breakdown of skin; Skin tear of right elbow without complication, subsequent encounter; Skin ulcer of upper arm, limited to breakdown of skin 07/30/2025 9:15 AM EDT Office Visit [facility] [address] [place] [phone] Dave Lazo PA Skin tear of left forearm without complication, initial encounter (Primary Dx); Skin ulcer of forearm with fat layer exposed (CMS/HCC V24, CMS/HCC V28); Skin tear of left hand without complication, initial encounter; Skin ulcer of hand with fat layer exposed (CMS/HCC V24, CMS/HCC V28); Skin tear of right elbow without complication, initial encounter; Skin ulcer of upper arm, limited to breakdown of skin (CMS/HCC V24, CMS/HCC V28) 07/20/2025 11:28 AM EDT - 07/23/2025 11:13 AM EDT Hospital Encounter [facility] [address] [place] [phone] Henok Carrillo MD Flores, Carlos M, MD Alam, Aroosa, MD Wound cellulitis (Primary Dx) Discharge Disposition: Home-Health Care Svc from Last 3 Months Immunizations Immunization Administration Dates Next Due Tdap Tetanus diptheria acell ular pertussis (Boostrix; Adacel) 7yo and older 07/20/2025 Surgical History Surgery Date Site/Laterality Comments WRIST SURGERY Right PROCEDURE: HISTORICAL WRIST SURGERY CATARACT EXTRACTION 02/2013 PROCEDURE: HISTORICAL CATARACT REMOVAL CATARACT EXTRACTION 01/2013 PROCEDURE: HISTORICAL CATARACT REMOVAL TURP / TRANSURETHRAL INCISIO N / DRAINAGE PROSTATE 02/2013 PROCEDURE: HISTORICAL TURP OTHER SURGICAL HISTORY 02/2013 PROCEDURE: HISTORY OTHER; COMMENT: Lung Biopsy AORTIC VALVE REPLACEMENT CORONARY ARTERY BYPASS GRAFT X 4 vessels Medical History Medical History Date Comments 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 Asbestosis ([facility] V24, [facility] V28) 07/31/2017 DX:Asbestosis ([facility]) Type 2 diabetes mellitus wit h cataract ([facility] V24, [facility] V28) 03/01/2017 DX:Type 2 diabetes mellitus with cataract ([facility]) Hypercholesterolemia 03/01/2017 DX:Hypercho lesterolemia Hypertension 03/01/2017 DX:Hypertension Loculated pleural effusion 07/31/2017 DX:Lo culated pleural effusion Obstructive sleep apnea syndrome 08/01/2017 DX:Obstructive sleep apnea syndrome Cataract, bilateral 06/27/2018 DX:Cataract, bilateral Coronary artery disease Atrial fibrillation ([facility] V24, [facility] V28) BPH (benign prostatic hyperplasia) Chronic kidney disease (CKD) , stage III (moderate) ([facility] V24, [facility] V28) Family History Medical History Relation Name Comments Heart attack Father Ovarian cancer Mother age 84 Relation Name Status Comments Father Mother Social History Tobacco Use Types Packs/Day Years [...] on file Sexual Orientation Not on file Obstetrics History Last Filed Vital Signs Vital Sign Reading Time Taken Comments Blood Pressure 135/69 08/06/2025 9:23 AM EDT Pulse 73 08/06/2025 9:23 AM EDT Temperature 35.6 C (96.1 F) 08/06/2025 9:23 AM EDT Respiratory Rate 16 08/06/2025 9:23 AM EDT Oxygen Saturation 96% 08/06/2025 9:23 AM EDT 3L 02 via Mac Inhaled Oxygen Concentration - - Weight 101 kg (222 lb) 07/30/2025 9:25 AM EDT Height 177.8 cm (5' 10 ) 07/30/2025 9:25 AM EDT Body Mass Index 31.85 07/30/2025 9:25 AM EDT Plan of Treatment Upcoming Encounters Date Type Department Care Team (Late st Contact Info) Description 08/13/2025 10:30 AM EDT Clinical Support [facility] [address] [place] [phone] 08/20/2025 9:15 AM EDT Clinical Support [facility] [address] [place] [phone] 08/27/2025 9:15 AM EDT Clinical Support [facility] [address] [place] [phone] 09/03/2025 9:15 AM EDT Clinical Support [facility] [address] [place] [phone] Health Maintenance Due Date Last Done Comments Diabetes: Annual Foot Exam 1955 Diabetes: Annual Retina Eye Exam 1955 Zoster Vaccines (2 of 3) 06/23/2016 04/28/2016 Pneumococcal Vaccine: 50+ Years (2 of 2 - PPSV23, PCV20, or PCV21) 07/13/2017 05/18/2017, 08/06/2013 RSV Immunization Adult Patients (1 - 1-dose 75+ series) 2018 Depression Screening 11/06/2024 COVID-19 Vaccine (3 - season) 2025 01/05/2021, 12/15/2020 Influenza Vaccine (#1) 2025 , 08/04/2023, 07/30/2023, Additional history exists Cholesterol Screening (Lipid Panel) 07/20/2025 Diabetes: Annual Urine Albumin-Creatinine Ratio (uACR) 07/20/2025 Diabetes: Blood Sugar Control Test (HGBA1C) 07/20/2025 Medicare Annual Wellness Visit 07/20/2025 Social Influencers of Health Screening 07/20/2025 Diabetes: Annual GFR (Glomerular Filtration Rate) 07/21/2026 07/21/2025, 07/20/2025 Hypertension/CHF/CAD Annual BMP Blood Test 07/21/2026 07/21/2025, 07/20/2025 Falls Risk Assessment 07/30/2026 07/30/2025 DTaP,Tdap,and Td Vaccines (3 - Td or Tdap) 07/20/2035 07/20/2025, 05/18/2017 HIB Vaccines Aged Out No longer eligi ble based on patient's age to complete this topic HPV Vaccines Aged Out No longer eligi ble based on patient's age to complete this topic Hepatitis A Vaccines Aged Out No long er eligible based on patient's age to complete this topic Hepatitis B Vaccines Aged Out No long er eligible based on patient's age to complete this topic IPV Vaccines Aged Out No longer eligi ble based on patient's age to complete this topic MMR Vaccines Aged Out No longer eligi ble based on patient's age to complete this topic Meningococcal ACWY Vaccine Aged Out N o longer eligible based on patient's age to complete this topic Meningococcal B Vaccine Aged Out No l onger eligible based on patient's age to complete this topic RSV Immunization Patients Under 20 months Aged Out No longer eligible based on patient's age to complete this topic Varicella Vaccines Aged Out No longer eligible based on patient's age to complete this topic Goals Goal Patient Goal Type Associated Problems Recent Progress Patient-Stated? Author Decrease Wound Volume by X% by date (in notes) Care Plan Impaired Tissue Improving(11/2024 9:48 AM EDT) Dinah Pepper, RN Patient and Caregiver Understand Wound Care Education Care Plan Impaired Tissue On track( 025 9:48 AM EDT) Dinah Pepper RN Wound volume breakdown reduced by X% by week 4 Care Plan Impaired Tissue Dinah Pepper RN Wound volume breakdown reduced by X% by week 8 Care Plan Impaired Tissue Dinah Pepper RN Wound volume breakdown reduced by X% by week 12 Care Plan Impaired Tissue Dinah Pepper RN Quit using tobacco (cigarettes, smokeless, etc) Care Plan Education needed on impact of smoking on wound Dinah Pepper RN Reduce tobacco use (cigarettes, smokeless, etc) Care Plan Education needed on impact of smoking on wound Dinah Pepper RN Decrease Wound Volume by X% by date (in notes) Care Plan Education needed on impact of smoking on wound Dinah Pepper RN Patient and Caregiver Understand Wound Care Education Care Plan Education needed related to ulceration/compr omised skin integrity. Dinah Pepper RN Procedures Procedure Name Priority Date/Time Associated Diagnosis Comments DEBRIDEMENT Routine 08/06/2025 9:15 AM EDT Skin tear of left forearm without complication, subsequent encounter Skin ulcer of forearm with fat layer exposed DEBRIDEMENT Routine 07/30/2025 9:15 AM EDT Skin tear of left hand without complication, initial encounter Skin ulcer of hand with fat layer exposed ([facility] V24, CMS/[facility] V28) DEBRIDEMENT Routine 07/30/2025 9:15 AM EDT Skin tear of left forearm without complication, initial encounter Skin ulcer of forearm with fat layer exposed (CMS/HCC V24, CMS/HCC V28) POCT GLUCOSE BLOOD Routine 07/23/2025 7: 37 AM EDT POCT GLUCOSE BLOOD Routine 07/22/2025 8: 50 PM EDT POCT GLUCOSE BLOOD Routine 07/22/2025 4: 06 PM EDT POCT GLUCOSE BLOOD Routine 07/22/2025 10 :56 AM EDT POCT GLUCOSE BLOOD Routine 07/22/2025 7: 41 AM EDT POCT GLUCOSE BLOOD Routine 07/21/2025 8: 03 PM EDT POCT GLUCOSE BLOOD Routine 07/21/2025 5: 19 PM EDT POCT GLUCOSE BLOOD Routine 07/21/2025 11 :05 AM EDT POCT GLUCOSE BLOOD Routine 07/21/2025 7: 44 AM EDT CBC WITH AUTO DIFFERENTIAL Routine 07/21/2025 7:09 AM EDT CBC AND DIFFERENTIAL Routine 07/21/2025 7:09 AM EDT MAGNESIUM Routine 07/21/2025 7:09 AM EDT BASIC METABOLIC PANEL Routine 07/21/2025 7:09 AM EDT POCT GLUCOSE BLOOD Routine 07/20/2025 8: 02 PM EDT MRSA PCR Routine 07/20/2025 6:07 PM EDT HC PT DEBRIDEMENT WOUND PER SESSION EACH ADDITIONAL 20 SQ CM Routine 07/20/2025 5:49 PM EDT HC PT DEBRIDEMENT WOUND PER SESSION EACH ADDITIONAL 20 SQ CM Routine 07/20/2025 5:49 PM EDT HC PT DEBRIDEMENT WOUND PER SESSION EACH ADDITIONAL 20 SQ CM Routine 07/20/2025 5:49 PM EDT HC PT DEBRIDEMENT WOUND PER SESSION EACH ADDITIONAL 20 SQ CM Routine 07/20/2025 5:49 PM EDT HC DEBRIDEMENT WOUND PER SESSION <=20 SQ CM Routine 07/20/2025 5:49 PM EDT PA DEBRIDEMENT WOUND PER SESSION EACH ADDITIONAL 20 SQ CM Routine 07/20/2025 5:49 PM EDT PA DEBRIDEMENT WOUND PER SESSION EACH ADDITIONAL 20 SQ CM Routine 07/20/2025 5:49 PM EDT PA DEBRIDEMENT WOUND PER SESSION EACH ADDITIONAL 20 SQ CM Routine 07/20/2025 5:49 PM EDT PA DEBRIDEMENT WOUND PER SESSION EACH ADDITIONAL 20 SQ CM Routine 07/20/2025 5:49 PM EDT PA DEBRIDEMENT WOUND PER SESSION <=20 SQ CM Routine 07/20/2025 5:49 PM EDT POCT GLUCOSE BLOOD Routine 07/20/2025 4: 19 PM EDT XR FOREARM 2 VIEWS LEFT STAT 07/20/2025 12:52 PM EDT C-REACTIVE PROTEIN Add-On 07/20/2025 12 :27 PM EDT CBC WITH AUTO DIFFERENTIAL STAT 07/20/2025 12:27 PM EDT LACTATE STAT 07/20/2025 12:27 PM EDT CBC AND DIFFERENTIAL STAT 07/20/2025 12:27 PM EDT COMPREHENSIVE METABOLIC PANEL STAT 07/20/2025 12:27 PM EDT CULTURE BLOOD STAT 07/20/2025 12:27 PM EDT CULTURE BLOOD STAT 07/20/2025 12:27 PM EDT from Last 3 Months Results * Debridement Traumatic Left;Posterior Hand (07/30/2025 9:15 AM EDT) Inder Saunders MD - 07/30/2025 9:15 AM EDT HGADA Aguillon 07/30/2025 10:23 AM Debridement Traumatic Left;Posterior Hand Performed by: GHADA Aguillon Authorized by: GHADA Aguillon Associated wounds: Wound Traumatic 07/30/25 Hand Left;Posterior Consent: Consent obtained: Verbal Consent given by: Patient Risks discussed: Yes Time out: Immediately prior to the procedure a time out was called Debridement Details: Performed by: GHADA Type: surgical Level: subcutaneous tissue Pain control: Lidocaine 4% Severity of Tissue Pre Debridement: Fat layer exposed Severity of Tissue Post Debridement: Fat layer exposed Time taken: 07/30/2025 9:36 AM Length (cm): 1.2 Width (cm): 0.9 Depth (cm): 0.1 Area (cm^2): 1.08 Time taken: 07/30/2025 9:37 AM Length (cm): 1.2 Width (cm): 0.9 Depth (cm): 0.1 Percent Debrided (%): 100 Surface Area (cm^2): 1.08 Area Debrided (cm^2): 1.08 Volume (cm^3): 0.11 Tissue and other material debrided: dermis, epidermis and subcutaneous tissue Devitalized tissue debrided: biofilm, exudate, fibrin and slough Instrument: Curette Amount of bleeding: none Hemostasis obtained with: Not applicable Procedural pain: 0 Post-procedural pain: 0 Response to treatment: Procedure was tolerated well us Dave URRUTIA IN CLINIC/BEDSIDE ORDERABLE S Final Result * Debridement Traumatic Left Arm (07/30/2025 9:15 AM EDT) Inder Saunders MD - 07/30/2025 9:15 AM EDT GHADA Aguillon 07/30/2025 10:23 AM Debridement Traumatic Left Arm Performed by: GHADA Aguillon Authorized by: GHADA Aguillon Associated wounds: Wound Traumatic 07/20/25 Arm Left Consent: Consent obtained: Verbal Consent given by: Patient Risks discussed: Yes Time out: Immediately prior to the procedure a time out was called Debridement Details: Performed by: GHADA Type: surgical Level: subcutaneous tissue Pain control: Lidocaine 4% Severity of Tissue Pre Debridement: Fat layer exposed Severity of Tissue Post Debridement: Fat layer exposed Time taken: 07/30/2025 9:34 AM Length (cm): 5.5 Width (cm): 2.4 Depth (cm): 0.4 Area (cm^2): 13.2 Time taken: 07/30/2025 9:35 AM Length (cm): 5 Width (cm): 2.4 Depth (cm): 0.4 Percent Debrided (%): 100 Surface Area (cm^2): 12 Area Debrided (cm^2): 12 Volume (cm^3): 4.8 Tissue and other material debrided: hypergranulation and subcutaneous tissue Devitalized tissue debrided: biofilm and slough Instrument: Curette Amount of bleeding: none Hemostasis obtained with: Not applicable Procedural pain: 0 Post-procedural pain: 0 Response to treatment: Procedure was tolerated well us Dave URRUTIA IN CLINIC/BEDSIDE ORDERABLE S Final Result * (ABNORMAL) POCT Glucose, blood (07/23/2025 7:37 AM EDT) Only the most recent of11 resultswithin the time period is included. Pathologist [facility] Glucose POCT 174(H) 70 - 100 mg/dL 07/23/2025 7:38 AM EDT [facility] Blood Capillary blood specimen / Unknown 07/23/2025 7:37 AM EDT 07/23/2025 7:39 AM EDT us Rinku Bermudez MD LAB POINT OF CARE TE ST DOCKED DEVICE UNSOLICITED RESULTS Final Result [facility] [address] [place] [address], [place] [phone] * (ABNORMAL) CBC auto differential (07/21/2025 7:09 AM EDT) Only the most recent of2 resultswithin the time period is included. WBC 10.7 4.8 - 10.8 K/[facility] HEMETOLOGY METHOD 07/21/2025 7:36 AM EDT [facility] RBC 4.00(L) 4.50 - 5.50 M/[facility] HEMETOLOGY METHOD 07/21/2025 7:36 AM [facility] Hemoglobin 12.3(L) 13.5 - 17.5 g/dL LAB HEMETOLOGY METHOD 07/21/2025 7:36 AM [facility] Hematocrit 36.9(L) 42.0 - 54.0 % LAB HEMETOLOGY METHOD 07/21/2025 7:36 AM [facility] MCV 92.7 79.0 - 98.0 FL LAB HEMETOLOGY METHOD 07/21/2025 7:36 AM [facility] MCH 30.9 27.0 - 32.0 pcg LAB HEMETOLOGY METHOD 07/21/2025 7:36 AM [facility] MCHC 33.3 32.0 - 37.0 g/dL LAB HEMETOLOGY METHOD 07/21/2025 7:36 AM [facility] RDW 13.2 11.0 - 15.0 % LAB HEMETOLOGY METHOD 07/21/2025 7:36 AM [facility] Platelets 218 130 - 400 K/mcL LAB HEMETOLOGY METHOD 07/21/2025 7:36 AM [facility] MPV 9.5 7.0 - 11.0 FL LAB HEMETOLOGY METHOD 07/21/2025 7:36 AM [facility] NRBC 0.0 <1.0 % LAB HEMETOLOGY METHOD 07/21/2025 7:36 AM [facility] NRBC Absolute 0.00 <0.10 K/mcL LAB HEMETOLOGY METHOD 07/21/2025 7:36 AM [facility] Neutrophils Relative 76.8 % LAB HEMETOLOGY METHOD 07/21/2025 7:36 AM [facility] Lymphocytes Relative 14.2 % LAB HEMETOLOGY METHOD 07/21/2025 7:36 AM [facility] Monocytes Relative 5.9 % LAB HEMETOLOGY METHOD 07/21/2025 7:36 AM EDT [facility] Eosinophils Relative 2.6 % LAB HEMETOLOGY METHOD 07/21/2025 7:36 AM EDT [facility] Basophils Relative 0.1 % LAB HEMETOLOGY METHOD 07/21/2025 7:36 AM EDT [facility] Immature Granulocytes Relative 0.4 % LAB HEMETOLOGY METHOD 07/21/2025 7:36 AM EDT [facility] Neutrophils Absolute 8.19(H) 1.50 - 7.00 K/mcL LAB HEMETOLOGY METHOD 07/21/2025 7:36 AM EDT [facility] Lymphocytes Absolute 1.51 1.00 - 5.00 K/mcL LAB HEMETOLOGY METHOD 07/21/2025 7:36 AM EDT [facility] Monocytes Absolute 0.63 0.20 - 1.00 K/mcL LAB HEMETOLOGY METHOD 07/21/2025 7:36 AM EDT [facility] Eosinophils Absolute 0.28 0.00 - 0.50 K/mcL LAB HEMETOLOGY METHOD 07/21/2025 7:36 AM EDT [facility] Basophils Absolute 0.01 0.00 - 0.20 K/mcL LAB HEMETOLOGY METHOD 07/21/2025 7:36 AM EDT [facility] Immature Granulocytes Absolute 0.04(H) 0.00 - 0.03 K/mcL LAB HEMETOLOGY METHOD 07/21/2025 7:36 AM EDT [facility] Blood Venous blood specimen / Unknown Venipuncture / Unknown 07/21/2025 7:09 AM EDT 07/21/2025 7:28 AM EDT us Linda URRUTIA LAB BLOOD ORDERABLES Final Resu lt [facility] [address] [place] [address], [place] [phone] * Magnesium (07/21/2025 7:09 AM EDT) [facility] Magnesium 2.2 1.9 - 2.6 mg/dL LAB CHEMISTRY METHOD 07/21/2025 8:01 AM [facility] Blood Venous blood specimen / Unknown Venipuncture / Unknown 07/21/2025 7:09 AM EDT 07/21/2025 7:27 AM EDT us Linda URRUTIA LAB BLOOD ORDERABLES Final Resu lt [facility] [address] [place] [address], [place] [phone] * (ABNORMAL) Basic metabolic panel (07/21/2025 7:09 AM EDT) [facility] Sodium 141 133 - 145 mmol/L LAB CHEMISTRY METHOD 07/21/2025 8:01 AM [facility] Potassium 3.8 3.5 - 5.5 mmol/L LAB CHEMISTRY METHOD 07/21/2025 8:01 AM [facility] Chloride 106 96 - 110 mmol/L LAB CHEMISTRY METHOD 07/21/2025 8:01 AM [facility] CO2 29 21 - 32 mmol/L LAB CHEMISTRY METHOD 07/21/2025 8:01 AM [facility] Anion Gap 6 3 - 11 LAB CHEMISTRY METHOD 07/21/2025 8:01 AM [facility] Glucose 136(H) 70 - 100 mg/dL LAB CHEMISTRY METHOD 07/21/2025 8:01 AM [facility] BUN 29(H) 5 - 25 mg/dL LAB CHEMISTRY METHOD 07/21/2025 8:01 AM [facility] Creatinine 1.73(H) 0.70 - 1.30 mg/dL LAB CHEMISTRY METHOD 07/21/2025 8:01 AM EDT [facility] eGFR 39(L) >=60 mL/min/1. 73m2 LAB CHEMISTRY METHOD 07/21/2025 8:01 AM EDT [facility] Comment:Calculation based on the Chronic Kidney Disease Epidemiology Collaboration (CKD-EPI) equation refit without adjustment for race. BUN/Creatinine Ratio 16.8 LAB CHEMISTRY METHOD 07/21/2025 8:01 AM EDT [facility] Calcium 8.9 8.5 - 10.5 mg/dL LAB CHEMISTRY METHOD 07/21/2025 8:01 AM EDT [facility] Blood Venous blood specimen / Unknown Venipuncture / Unknown 07/21/2025 7:09 AM EDT 07/21/2025 7:27 AM EDT us Linda URRUTIA LAB BLOOD ORDERABLES Final Resu lt Performing Organization Address [facility]/ZIP Co de Phone Number [facility] [address] [place] [address], [place] [phone] * MRSA molecular study (07/20/2025 6:07 PM EDT) [facility] MRSA Screen PCR Not Detected Not Detected LAB MICROBIOLOGY METHOD 07/20/2025 7:59 PM EDT [facility] Swab Both anterior nares / Unknown Non-blood Collection / Unknown 07/20/2025 6:07 PM EDT 07/20/2025 6:33 PM EDT us Linda URRUTIA LAB MICROBIOLOGY - GENERAL ORDE RABLES Final Result Performing Organization Address City/[facility]/ZIP Co de Phone Number [facility] [address] [place] [address], [place] [phone] * PA DEBRIDEMENT WOUND PER SESSION <=20 SQ CM, PA DEBRIDEMENT WOUND PER SESSION EACH ADDITIONAL 20SQ CM, PA DEBRIDEMENT WOUND PER SESSION EACH ADDITIONAL 20 SQ CM, PA DEBRIDEMENT WOUND PER SESSION EACH ADDITIONAL 20 SQ CM, PA DEBRIDEMENT WOUND PER SESSION EACH ADDITIONAL 20 SQ CM, HC DEBRIDEMENT WOUND PER SESSION <=20 SQ CM, HC PT DEBRIDEMENT WOUND PER SESSION EACH ADDITIONAL 20 SQ CM, HC PTDEBRIDEMENT WOUND PER SESSION EACH ADDITIONAL 20 SQ CM, HC PT DEBRIDEMENT WOUND PER SESSION EACH ADDITIONAL 20 SQ CM, HC PT DEBRIDEMENT WOUND PER SESSION EACH ADDITIONAL 20 SQ CM (07/20/2025 5:49 PM EDT) Henok Marte MD - 07/20/2025 5:49 PM EDT Henok Carrillo MD 07/20/2025 5:53 PM ED Wound Care Date/Time: 07/20/2025 5:49 PM Performed by: Henok Carrillo MD Authorized by: Henok Carrillo MD Consent: Consent obtained: Verbal Consent given by: Patient Risks, benefits, and alternatives were discussed: yes Risks discussed: Bleeding Guy protocol: Patient identity confirmed: Verbally with patient Pre-procedure details: Preparation: Patient was prepped and draped in usual sterile fashion Sedation: Sedation type: None Procedure details: Indications: open wounds Wound location: Arm Shoulder/arm location: L lower arm Wound surface area (sq cm): 100 Debridement performed: Yes Debridement type: selective Debridement mechanism: Forceps and scissors Devitalized tissue debrided: exudate and necrotic debris Post-procedure details: Procedure completion: Tolerated well, no immediate complications us Henok Carrillo MD IN CLINIC/BEDSIDE ORDERAB LES Final Result * XR Forearm 2 Views Left (07/20/2025 12:52 PM EDT) Anatomical Region Laterality Modality Upper Extremities, Forearm Left Radio graphic Imaging 07/20/2025 1:10 PM EDT Impressions 07/20/2025 1:11 PM EDT FINDINGS/IMPRESSION: Soft tissue swelling and air in the subcutaneous tissues along the dorsal aspect of the mid radius suspicious for necrotizing infection. Surgical clips in the volar aspect of the upper forearm and at the wrist. No acute fracture or dislocation. No elbow effusion. Arterial calcifications. Severe degenerative changes seen at the 1st [facility] articulation. -------- FINAL REPORT -------- Dictated By: ЕЛЕНА GRECO Dictated Date: 07/20/2025 13:10 ET Assigned Physician: ЕЛЕНА GRECO Reviewed and Electronically Signed By: ЕЛЕНА GRECO Signed Date: 07/20/2025 13:11 ET Workstation ID: [id number] Transcribed By: Self Edit Transcribed Date: 07/20/2025 13:10 ET Narrative 07/20/2025 1:11 PM EDT XR FOREARM 2 VIEWS LEFT INDICATION: Wound TECHNIQUE: XR FOREARM 2 VIEWS LEFT COMPARISON: No priors available. Procedure Note Елена Greco MD - 07/20/2025 XR FOREARM 2 VIEWS LEFT INDICATION: Wound TECHNIQUE: XR FOREARM 2 VIEWS LEFT COMPARISON: No priors available. IMPRESSION: FINDINGS/IMPRESSION: Soft tissue swelling and air in the subcutaneoustissues along the dorsal aspect of the mid radius suspicious fornecrotizing infection. Surgical clips in the volar aspect of the upperforearm and at the wrist. No acute fracture or dislocation. No elboweffusion. Arterial calcifications. Severe degenerative changes seen atthe 1st [facility] articulation. -------- FINAL REPORT -------- Dictated By: ЕЛЕНА GRECO Dictated Date: 07/20/2025 13:10 ET Assigned Physician: ЕЛЕНА GRECO Reviewed and Electronically Signed By: ЕЛЕНА GRECO Signed Date: 07/20/2025 13:11 ET Workstation ID: [id number] Transcribed By: Self Edit Transcribed Date: 07/20/2025 13:10 ET us Henok Carrillo MD IMG XR PROCEDURES Final R esult * Blood Culture, Peripheral #2 (07/20/2025 12:27 PM EDT) Only the most recent of2 resultswithin the time period is included. Culture, Blood No growth at 5 days 07/25/2025 2:01 PM EDT [facility] Blood Venous blood specimen / Unknown Venipuncture / Unknown 07/20/2025 12:27 PM EDT 07/20/2025 12:38 PM EDT us Henok Carrillo MD LAB MICROBIOLOGY - GENERA L ORDERABLES Final Result Performing Organization Address [facility]/ZIP Co de Phone Number [facility] [address] [place] [address], * (ABNORMAL) C-reactive protein (07/20/2025 12:27 PM EDT) C-Reactive Protein 6.26(H) <=0.50 mg/dL LAB CHEMISTRY METHOD 07/20/2025 3:39 PM EDT [facility] Blood Venous blood specimen / Unknown Venipuncture / Unknown 07/20/2025 12:27 PM EDT 07/20/2025 12:38 PM EDT Oseas Nieves MD LAB BLOOD ORDERABLES Final Re sult Performing Organization Address [facility]/ZIP Co de Phone Number [facility] [address] [place] [address], * Lactate (07/20/2025 12:27 PM EDT) Pathologist [facility] Lactate 1.0 0.4 - 2.0 mmol/L LAB CHEMISTRY METHOD 07/20/2025 1:21 PM EDT [facility] Blood Venous blood specimen / Unknown Venipuncture / Unknown 07/20/2025 12:27 PM EDT 07/20/2025 12:36 PM EDT Henok Carrillo MD LAB BLOOD ORDERABLES Ainsley l Result Performing Organization Address [facility]/ZIP Co de Phone Number [facility] [address] [place] [address], * (ABNORMAL) Comprehensive Metabolic Panel (CMP) (07/20/2025 12:27 PM EDT) Sodium 138 133 - 145 mmol/L LAB CHE[facility]STR[facility] Potassium 3.7 3.5 - 5.5 mmol/L LAB CHEMISTRY METHOD 07/20/2025 1:15 PM [facility] Chloride 102 96 - 110 mmol/L LAB CHEMISTRY METHOD 07/20/2025 1:15 PM [facility] CO2 31 21 - 32 mmol/L LAB CHEMISTRY METHOD 07/20/2025 1:15 PM [facility] Anion Gap 5 3 - 11 LAB CHEMISTRY METHOD 07/20/2025 1:15 PM [facility] Glucose 187(H) 70 - 100 mg/dL LAB CHEMISTRY METHOD 07/20/2025 1:15 PM [facility] BUN 35(H) 5 - 25 mg/dL LAB CHEMISTRY METHOD 07/20/2025 1:15 PM [facility] Creatinine 1.85(H) 0.70 - 1.30 mg/dL LAB CHEMISTRY METHOD 07/20/2025 1:15 PM [facility] eGFR 36(L) >=60 mL/min/1. 73m2 LAB CHEMISTRY METHOD 07/20/2025 1:15 PM [facility] Comment:Calculation based on the Chronic Kidney Disease Epidemiology Collaboration (CKD-EPI) equation refit without adjustment for race. BUN/Creatinine Ratio 18.9 LAB CHEMISTRY METHOD 07/20/2025 1:15 PM [facility] Calcium 8.5 8.5 - 10.5 mg/dL LAB CHEMISTRY METHOD 07/20/2025 1:15 PM [facility] AST (SGOT) 28 10 - 42 unit/L LAB CHEMISTRY METHOD 07/20/2025 1:15 PM [facility] ALT (SGPT) 27 10 - 60 unit/L LAB CHEMISTRY METHOD 07/20/2025 1:15 PM [facility] Alkaline Phosphatase 90 42 - 121 unit/L LAB CHEMISTRY METHOD 07/20/2025 1:15 PM EDT [facility] Total Protein 7.5 6.0 - 8.0 g/dL LAB CHEMISTRY METHOD 07/20/2025 1:15 PM EDT [facility] Albumin 2.7(L) 3.2 - 5.0 g/dL LAB CHEMISTRY METHOD 07/20/2025 1:15 PM EDT [facility] Total Bilirubin 0.6 0.0 - 1.4 mg/dL LAB CHEMISTRY METHOD 07/20/2025 1:15 PM EDT [facility] Blood Venous blood specimen / Unknown Venipuncture / Unknown 07/20/2025 12:27 PM EDT 07/20/2025 12:38 PM EDT us Henok Carrillo MD LAB BLOOD ORDERABLES Ainsley l Result [facility] [address] [place] [address], from Last 3 Months Additional Health Concerns Active Problems Noted Date Diagnosed Date Impaired Tissue 07/30/2025 Education needed on impact of smoking on wound 0 07/30/2025 Education needed related to ulceration/compromised skin integrity. 07/30/2025 Insurance MEDICARE [facility] Advance Directives * Full Code - Confirmed (Latest Code Status on File) Date Activated Date Inactivated Comments 07/20/2025 5:36 PM 07/23/2025 1:[address] atus was ascertained in the following way: Code status discussion: discussion with patient To update the patient's code status, place a code status order. Do not modify or discontinue any currently active code status orders. * Full Code - Default Date Activated Date Inactivated Comments 07/20/2025 3:29 PM 07/20/2025 5:36 PM This is orde r is used when code status has not been discussed with the patient, or code status is otherwise unknown/unconfirmed To update the patient's code status, place a code status order. Do not modify or discontinue any currently active code status orders. Care Teams Branch Credit Counselor Relationship Specialty Start Date End Date Physician, Pcp Unknown PCP - General 07/20/25
--- OUTSIDE RECORDS SUMMARY | 2025-08-08 11:08 | XMS_ITS | Patient Health Record ---
Author Organization [facility] Address [address] [place] [address] Care Team Providers Care Civil Division Commander Deputy Sheriff Name Role Phone Khoi (RETIRED) Aldo CALVILLO Primary Care Provider Unavailable Bright Rey Unavailable [phone] Reason For Referral No Information Medications Medication [...] Problem Status W/U Status Risk Notes Problem 925007963 Encounter for screening for malignant neoplasm of colon (Z12.11) Active confirmed Problem 723336462 History of adenomatous polyp of colon (Z86.010) Active confirmed Problem 952089699 Long-term use of aspirin therapy (Z79.82) Active confirmed Plan Of Treatment Future Test Test Name Order Date COLONOSCOPY 04/24/2018 Insurance Providers Payer Name Payer Address Payer Phone Subscriber Number Group Number Insured Name Patient Relationship to Insured Coverage Start Date Coverage End Date MEDICARE OF [place] [address] [place] [address] [id number] CASS MATHEW Self - patient is the insured [employer]ANO DEBBYGRKELLY [address] [place] [phone] [id number] FRANCISNORMMATHEW Estrella Self - patient is the insured Medical (General) History Medical History History ICD Code NIDDM Denies CT,CVA,renal disease Asbestosis--US [place]---wears oxygen as ne eded--he sees Dr. Bello Anxiety/Depression HTN GERD---takes Famotidine with good relief Sleep apnea--uses CPAP One small tubular adenoma re moved in 2000--negative followup colonoscopy in 2006 other than some diverticulosis and internal hemorrhoids Surgical History Surgery Date(Month/Year) TURP Cataract-lens implants both eyes
--- OUTSIDE RECORDS SUMMARY | 2025-08-08 11:08 | XMS_ITS ---
Care Plan Created on: August 08, 2025 Dave Tran : 1945 Sex: Male Author Organization [facility] Address [address] [place] [address] Phone Care Team Providers Care Certified Anesthesiologist Assistant Name Role Phone Physician, Pcp Unknown Primary Care Provider Chel vailable Active Problems Problem Noted Date Diagnosed Date Skin tear of left forearm without complication 0 07/30/2025 Skin tear of right elbow without complication Skin tear of left hand without complication 07/08 Skin ulcer of forearm with fat layer exposed Skin ulcer of upper arm, limited to breakdown of skin 07/30/2025 Skin ulcer of hand with fat layer exposed 2024 Wound cellulitis 07/20/2025 Additional Health Concerns Active Problems Noted Date Diagnosed Date Impaired Tissue 07/30/2025 Education needed on impact of smoking on wound 0 07/30/2025 Education needed related to ulceration/compromised skin integrity. 07/30/2025 Goals Goal Patient Goal Type Associated Problems Recent Progress Patient-Stated? Author Decrease Wound Volume by X% by date (in notes) Care Plan Impaired Tissue Improving(11/2024 9:48 AM EDT) No Dinah Mcclelland RN Patient and Caregiver Understand Wound Care Education Care Plan Impaired Tissue On track( 9:48 AM EDT) No Dinah Mcclelland RN Wound volume breakdown reduced by X% by week 4 Care Plan Impaired Tissue No Dinah Mcclelland RN Wound volume breakdown reduced by X% by week 8 Care Plan Impaired Tissue No Dinah Mcclelland [...] smoking on wound No Dinah Mcclelland RN Decrease Wound Volume by X% by date (in notes) Care Plan Education needed on impact of smoking on wound No Dinah Mcclelland RN Patient and Caregiver Understand Wound Care Education Care Plan Education needed related to ulceration/compr omised skin integrity. No Dinah Mcclelland RN Interventions Care Plan Interventions Intervention Entry Date Outcome Provide caregiver with wound care procedure information 07/30/2025 Educate caregiver on proper wound care procedures 07/30/2025 Give provider list of wound care supplies 07/30/2025 Refill wound care supplies 07/30/2025 Send Wound Care Supplies 07/30/2025 Give provider list of wound care supplies 07/30/2025 Refill wound care supplies 07/30/2025 Send Wound Care Supplies 07/30/2025 Provide caregiver with wound care procedure information 07/30/2025 Educate caregiver on proper wound care procedures 07/30/2025 Document patient eligibility for HBO 07/30/2025 Assess patient for HBO treatment 07/30/2025 Record wound depth 07/30/2025 Record total wound area 07/30/2025 Measure wound progress 07/30/2025 Create an action plan identifying patient strengths and supports 07/30/2025 Establish quit date with patient 07/30/2025 Discuss prior cessation attempts 07/30/2025 Discuss preferred method of cessation and plan 07/30/2025 Discuss barriers to smoking cessation 07/30/2025 Discuss smoking status with patient 07/30/2025 Create an action plan identifying patient strengths and supports 07/30/2025 Establish quit date with patient 07/30/2025 Discuss prior cessation attempts 07/30/2025 Discuss preferred method of cessation and plan 07/30/2025 Discuss barriers to smoking cessation 07/30/2025 Discuss smoking status with patient 07/30/2025 Provide caregiver with wound care procedure information 07/30/2025 Educate caregiver on proper wound care procedures 07/30/2025 Document patient eligibility for HBO 07/30/2025 Assess patient for HBO treatment 07/30/2025 Record wound depth 07/30/2025 Record total wound area 07/30/2025 Measure wound progress 07/30/2025 Provide caregiver with wound care procedure information 07/30/2025 Educate caregiver on proper wound care procedures 07/30/2025 Document patient eligibility for HBO 07/30/2025 Assess patient for HBO treatment 07/30/2025 Record wound depth 07/30/2025 Record total wound area 07/30/2025 Measure wound progress 07/30/2025 Provide caregiver with wound care procedure information 07/30/2025 Educate caregiver on proper wound care procedures 07/30/2025 Document patient eligibility for HBO 07/30/2025 Assess patient for HBO treatment 07/30/2025 Record wound depth 07/30/2025 Record total wound area 07/30/2025 Measure wound progress 07/30/2025 Provide caregiver with wound care procedure information 07/30/2025 Educate caregiver on proper wound care procedures 07/30/2025 Give provider list of wound care supplies 07/30/2025 Refill wound care supplies 07/30/2025 Send Wound Care Supplies 07/30/2025 Give provider list of wound care supplies 07/30/2025 Refill wound care supplies 07/30/2025 Send Wound Care Supplies 07/30/2025 Provide caregiver with wound care procedure information 07/30/2025 Educate caregiver on proper wound care procedures 07/30/2025 Record wound depth 07/30/2025 Record total wound area 07/30/2025 Measure wound progress 07/30/2025 Related Goals and Interventions Goal Associated Intervent ions Decrease Wound Volume by X% by date (in notes) Give provider list of wound care supplie s; Refill wound care supplies; Send Wound Care Supplies; Provide caregiver with wound care procedure information; Educate caregiver on proper wound care procedures; Record wound depth; Record total wound area; Measure wound progress Patient and Caregiver Unders tand Wound Care Education Provide caregiver with wound care proced ure information; Educate caregiver on proper wound care procedures; Give provider list of wound care supplies; Refill wound care supplies; Send Wound Care Supplies Wound volume breakdown reduc ed by X% by week 4 Provide caregiver with wound care proced ure information; Educate caregiver on proper wound care procedures; Document patient eligibility for HBO; Assess patient for HBO treatment; Record wound depth; Record total wound area; Measure wound progress Wound volume breakdown reduc ed by X% by week 8 Provide caregiver with wound care proced ure information; Educate caregiver on proper wound care procedures; Document patient eligibility for HBO; Assess patient for HBO treatment; Record wound depth; Record total wound area; Measure wound progress Wound volume breakdown reduc ed by X% by week 12 Provide caregiver with wound care proced ure information; Educate caregiver on proper wound care procedures; Document patient eligibility for HBO; Assess patient for HBO treatment; Record wound depth; Record total wound area; Measure wound progress Quit using tobacco (cigarett es, smokeless, etc) Create an action plan identifying patien t strengths and supports; Establish quit date with patient; Discuss prior cessation attempts; Discuss preferred method of cessation and plan; Discuss barriers to smoking cessation; Discuss smoking status with patient Reduce tobacco use (cigarett es, smokeless, etc) Create an action plan identifying patien t strengths and supports; Establish quit date with patient; Discuss prior cessation attempts; Discuss preferred method of cessation and plan; Discuss barriers to smoking cessation; Discuss smoking status with patient Decrease Wound Volume by X% by date (in notes) Give provider list of wound care supplie s; Refill wound care supplies; Send Wound Care Supplies; Provide caregiver with wound care procedure information; Educate caregiver on proper wound care procedures; Document patient eligibility for HBO; Assess patient for HBO treatment; Record wound depth; Record total wound area; Measure wound progress Patient and Caregiver Unders tand Wound Care Education Provide caregiver with wound care proced ure information; Educate caregiver on proper wound care procedures; Give provider list of wound care supplies; Refill wound care supplies; Send Wound Care Supplies
== END 2025-08-08 11:07 | disposition home or self-care (01) ==
PROVIDERS: PCP Student in an Organized Health Care Education/Training Program; Visit Provider Student in an Organized Health Care Education/Training Program
DX: I12.9 Hypertensive chronic kidney disease with stage 1 through stage 4 chronic kidney disease, or unspecified chronic kidney disease (principal); J84.10 Pulmonary fibrosis, unspecified; E11.9 Type 2 diabetes mellitus without complications; N18.4 Chronic kidney disease, stage 4 (severe); I48.0 Paroxysmal atrial fibrillation; Z95.2 Presence of prosthetic heart valve; Z95.1 Presence of aortocoronary bypass graft; F41.9 Anxiety disorder, unspecified

== ENCOUNTER → 2025-08-08 10:17 | Outpatient (BNVA) | payer MEDICARE, OTHER, SELFPAY | PROVIDERS: PCP Family Medicine; Visit Provider Student in an Organized Health Care Education/Training Program | DX: I12.9 Hypertensive chronic kidney disease with stage 1 through stage 4 chronic kidney disease, or unspecified chronic kidney disease (principal); E11.22 Type 2 diabetes mellitus with diabetic chronic kidney disease; N18.4 Chronic kidney disease, stage 4 (severe); J84.10 Pulmonary fibrosis, unspecified; I48.0 Paroxysmal atrial fibrillation; F41.9 Anxiety disorder, unspecified; Z95.1 Presence of aortocoronary bypass graft; Z95.2 Presence of prosthetic heart valve; Z13.31 Encounter for screening for depression; Z13.39 Encounter for screening examination for other mental health and behavioral disorders | CPT/HCPCS: 96127; 99202 ==

== ENCOUNTER 2025-09-26 12:16 | Emergency (ER) | payer MEDICARE, OTHER, SELFPAY ==
--- NOTE | ~2025-09-26 | XR_ITS ---
EXAMINATION: XR CHEST 1 VIEW HISTORY: elevated BNP COMPARISON: Comparison is made with the prior examination dated 10/16/2024. FINDINGS: A single AP portable view of the chest performed at 3:18 PM is submitted. 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 There is moderate bilateral pleural thickening, greatest at the right lung apex. No new focal airspace opacity is seen. There is no definite pleural effusion, pneumothorax, or pulmonary vascular congestion. The heart is normal in size. The patient is status post median sternotomy. The bones are intact. XR/XR chest 1V IMPRESSION: No acute cardiopulmonary abnormality. Electronically signed by: Bright Gama MD 09/26/2025 03:26 PM EST
--- NOTE | ~2025-09-26 | XR_ITS ---
Examination: CR Xr Tibia Fibula Lt 2v Technique: AP and lateral view lower extremity, left hip. INDICATION: swelling and redness. osteomyelitits? COMPARISON: None FINDINGS: Moderate vascular calcifications are evident in the lower leg. There is mild narrowing of the medial joint space and marginal osteophytes in the knee. There is reticulation and increased density of the soft tissues of the distal thigh and lower leg consistent with edema/cellulitis. No cortical erosions are identified. There is no acute periosteal new bone formation. XR/XR tibia fibula LT 2V IMPRESSION: Edema and/or cellulitis is noted in the distal thigh and left lower leg. Moderate vascular calcifications. Mild left knee osteophytes. Electronically signed by: Jorge Medina MD 09/26/2025 02:23 PM MARJORIE FRIAS
--- NOTE | ~2025-09-26 | US_ITS ---
EXAMINATION: US TRIPLEX LOWER EXTREMITY, BILATERAL CLINICAL INFORMATION: Leg swelling COMPARISON: None available. TECHNIQUE: Color-flow triplex imaging with spectral analysis and compression Doppler were performed on the bilateral lower extremities. FINDINGS: Respiratory variation, normal compression and augmented flow are noted throughout the bilateral lower extremities. The visualized common femoral vein, superficial femoral vein, profunda femoral vein, popliteal vein and midcalf peroneal and posterior tibial venous segments show no evidence of deep venous thrombosis bilaterally. There is no Schaffer's cyst. US/US venous duplex LE BI IMPRESSION: No evidence of deep venous thrombosis involving the bilateral lower extremities. Electronically signed by: Robbi Aguilar MD 09/26/2025 02:31 PM EST
[2025-09-26 12:22] VITALS: BP 152/67; PULSE 86; RESP 18; TEMP 36.3; O2SAT 92; BMI 32.3
--- NOTE | 2025-09-26 12:24 | ED_ITS ---
HPI - General Adult General Stated complaint: leg pain/swelling Related Data Home Medications ?Medication ?Instructions ?Recorded ?Confirmed atorvastatin 80 mg tablet 80 mg PO DAILY 12/24/2001/28 insulin glargine 100 unit/mL 30 unit subcut BEDTIME 08/08/25 subcutaneous solution (Lantus U-100 Insulin) Oxygen Home Use 12/08/22 08/08/25 nebulizers 12/08/22 08/08/25 famotidine 20 mg tablet 20 mg PO DAILY 02/07/2401/28 bupropion HCl 150 mg tablet,12 hr 150 mg PO DAILY 10/0608/08/25 sustained-release torsemide 20 mg tablet 20 mg PO DAILY 10/16/2401/28 apixaban 2.5 mg tablet (Eliquis) 2.5 mg PO BID 5 08/08/25 ascorbate calcium (vitamin C) 500 500 mg PO DAILY 01/2808/08/25 mg tablet ferrous sulfate 325 mg (65 mg 325 mg PO DAILY 08/08/25 08/08/25 iron) tablet magnesium 250 mg tablet 500 mg PO DAILY 08/08/2501/28 metoprolol tartrate 25 mg tablet 12.5 mg PO ONCE 08/0808/08/25 multivitamin 1 tab PO DAILY 08/08/2501/28 omega 0-uvz-rsu-fish oil 120 cap PO 08/08/25 08/08/25 mg-180 mg-500 mg capsule (Fish Oil) sertraline 100 mg tablet 100 mg PO BID 08/08/2508/08 vitamin E (dl, acetate) 45 mg (100 45 mg PO DAILY 01/2808/08/25 unit) capsule Allergies Allergy/AdvReac Type Severity Reaction Status Date / Time No Known Allergies (No Known Allergy Verified 09/26/25 12:27 Allergies*) [facility] Past Medical History Medical History (Updated 08/08/25 @ 10:59 by Noel Rock MD) Anxiety Atrial fibrillation CKD stage 4 secondary to hypertension Diabetes Paroxysmal atrial fibrillation Coronary artery disease Aortic stenosis Atrial fibrillation, new onset Hypoxia Pulmonary nodules Chronic restrictive lung disease Chronic respiratory failure Pulmonary fibrosis Asbestosis Surgical History (Updated 08/08/25 @ 10:56 by Noel Rock MD) History of colonoscopy (~06/20/18) History of open heart surgery Family History Family History Mother Ovarian cancer Father Heart attack Brother Heart attack Sister Diabetes Social History [facility] Are you a primary cna caregiver to a significant other at home: No Do you presently have visiting nurse or other home services: No Alcohol intake: former Year quit: 1989 Patient Tobacco Use Status: Former Tobacco user Tobacco use type: Cigarette Years Smoked: 8 Years - Quit at 22yo e-Cigarette/Vaping Use: Never Used service: Yes Current occupational status: retired Course Course Course Narrative: RME: 80 yold male with pmh of abstesoso, afib, valve surgery, presents to the ED for left leg redness swelling. exam positive for left leg redness and swelling. labs, xray, and ultrasoun ordered Discharge Plan Discharge Prescriptions: No Action bupropion HCl 150 mg tablet sustained-release 12 hr 150 mg PO DAILY torsemide 20 mg tablet 20 mg PO DAILY atorvastatin 80 mg tablet 80 mg PO DAILY Lantus U-100 Insulin 100 unit/mL solution 30 unit subcut BEDTIME metoprolol tartrate 25 mg tablet 12.5 mg PO ONCE sertraline 100 mg tablet 100 mg PO BID (DME) nebulizers Misc See Rx Instructions .Route Rx Instructions: As directed (DME) Oxygen Home Use Kit See Rx Instructions .Route Rx Instructions: As directed famotidine 20 mg tablet 20 mg PO DAILY multivitamin Tablet 1 tab PO DAILY ferrous sulfate 325 mg (65 mg iron) tablet 325 mg PO DAILY ascorbate calcium (vitamin C) 500 mg tablet 500 mg PO DAILY magnesium 250 mg tablet 500 mg PO DAILY vitamin E (dl, acetate) 45 mg (100 unit) capsule 45 mg PO DAILY Fish Oil 120-180-500 mg capsule PO Eliquis 2.5 mg tablet 2.5 mg PO BID Print Language: Citizen [place]
--- NOTE | 2025-09-26 12:30 | ECG_ITS ---
Test Reason : LEFT LEG SWELLING Blood Pressure : */* mmHG Vent. Rate : 67 BPM Atrial Rate : 67 BPM P-R Int : 186 ms QRS Dur : 116 ms QT Int : 426 ms P-R-T Axes : 67 -39 48 degrees QTcB Int : 450 ms Normal sinus rhythm Left axis deviation Incomplete left bundle branch block Abnormal ECG When compared with ECG of 07-Feb-2025 14:33, Nonspecific T wave abnormality no longer evident in Inferior leads Referred By: Alcides Fuller Electronically Signed By: MARISOL ESTRADA
--- NOTE | 2025-09-26 13:42 | MHC.EDTECH ---
ekg was delayed per patient being in ultrasound for a long amount of time
--- OUTSIDE RECORDS SUMMARY | 2025-09-26 13:53 | XMS_ITS | Patient Health Record ---
Author Organization [facility] Address [address] [place] [address] Care Team Providers Care Tableau Administrator Name Role Phone Khoi (RETIRED) Aldo CALVILLO Primary Care Provider Unavailable Bright Rey Unavailable [phone] Reason For Referral No Information Medications Medication SIG (Take, Route, Frequency, Duration) Notes Start Date End Date Status Sertraline HCl 100 MG Tablet 1 tablet Orally Once a day A ctive metFORMIN HCl 500 MG Tablet 1 tablet with meals Orally Twice a day Active Aspir-81 81 MG Tablet Delayed Release 1 tablet Orally Once a day Active Iron 325 (65 Fe) MG Tablet 1 tablet Orally Once a day Active Famotidine 10 MG Tablet 1 tablet as need ed Orally Once a day Active Lisinopril 10 MG Tablet 1 tablet Orally Once a day Active Immunizations Vaccine Route Administration Date Status Comme nts Flu vaccine no Preserv 3 and > Unknown 08/30/2017 Admin istered Social History Tobacco Use: Social History Observation Description Date Details (start date - stop date) Former Smoker NA - NA Social History Drugs/Alcohol: Social Info Question Answer Notes Alcohol Screen Did you have a drink containing alcohol in the past year? No Points 0 Interpretation Negative Tobacco Use: Social Info Question Answer Notes Tobacco Use/Smoking Patient is a former smoker How long has it been since you last smoked? > 10 years Additional Details Category Social Info Options Details Miscellaneous: Marital status: Occupation: retired Section Notes: Nonsmoker; no sig. alcohol Problems Problem Type SNOMED Code ICD Code Onset Dates Problem Status W/U Status Risk Notes Problem Screening for malignant neoplasm of colon (424439818) Encounter for screening for malignant neoplasm of colon (Z12.11) Active confirmed Problem History of adenomatous polyp of colon (888010760) History of adenomatous polyp of colon (Z86.010) Active confirmed Problem Long-term current use of antiplatelet drug (625963672952256 ) Long-term use of aspirin therapy (Z79.82) Active confirmed Plan Of Treatment Future Test Test Name Order Date COLONOSCOPY 04/24/2018 Insurance Providers Payer Name Payer Address Payer Phone Subscriber Number Group Number Insured Name Patient Relationship to Insured Coverage Start Date Coverage End Date MEDICARE OF [place] [address] [place] [address] [phone] [id number] MATHEW ODELL Self - patient is the insured [employer] [address] [place] [phone] [id number] MATHEW ODELL Self - patient is the insured Medical (General) History Medical History History ICD Code NIDDM Denies PA,CVA,renal disease Asbestosis--[place]---wears oxygen as ne eded--he sees Dr. Bello Anxiety/Depression HTN GERD---takes Famotidine with good relief Sleep apnea--uses CPAP One small tubular adenoma re moved in 2000--negative followup colonoscopy in 2006 other than some diverticulosis and internal hemorrhoids Surgical History Surgery Date(Month/Year) TURP Cataract-lens implants both eyes
--- OUTSIDE RECORDS SUMMARY | 2025-09-26 13:53 | XMS_ITS | Clinical Summary ---
Author Organization [facility] Address [address] [place] [phone] Phone Care Team Providers Care Drapery Maker Name Role Phone Physician, Pcp Unknown Primary Care Provider Chel vailable Allergies No known active allergies Medications atorvastatin (LIPITOR) 80 mg tablet Take 1 tablet (80 mg total) by mouth 1 (one) time each day. 06/02/2020 Active buPROPion XL (WELLBUTRIN XL) 150 mg 24 hr tablet Take 1 tablet (150 mg total) by mouth 1 (one) time each day. 09/08/2022 Active famotidine (PEPCID) 20 mg tablet Take 1 tablet (20 mg total) by mouth 1 (one) time each day if needed. 08/20/2013 Active metoprolol tartrate (LOPRESSOR) 25 mg tablet Take 0.5 tablets (12.5 mg total) by mouth 1 (one) time each day. 09/13/2019 Active sertraline (ZOLOFT) 100 mg tablet Take 1 tablet (100 mg total) by mouth 2 (two) times a day. 08/20/2013 Active torsemide (DEMADEX) 20 mg tablet Take 1 tablet (20 mg total) by mouth 1 (one) time each day. 09/13/2019 Active insulin glargine (LANTUS SoloStar) 100 unit/mL (3 mL) injection pen Inject 32 Units under the skin 1 (one) time each day in the morning. 09/12/2019 Active apixaban (ELIQUIS) 5 mg tablet Take 1 tablet (5 mg total) by mouth 2 (two) times a day. Active Active Problems Problem Noted Date Diagnosed Date [...] Encounters Date Type Department Care Team Description 08/27/2025 9:15 AM EDT Office Visit [facility] [address] [place] [phone] Dave Lazo PA Skin tear of left forearm without complication, subsequent encounter (Primary Dx); Skin ulcer of forearm, limited to breakdown of skin 08/20/2025 9:30 AM EDT Office Visit [facility] [address] [place] [phone] Dave Lazo PA Skin tear of left forearm without complication, subsequent encounter (Primary Dx); Skin ulcer of forearm, limited to breakdown of skin 08/13/2025 10:30 AM EDT Office Visit [facility] [address] [place] [phone] Dave Lazo PA Skin tear of left forearm without complication, subsequent encounter (Primary Dx); Skin ulcer of forearm with fat layer exposed 08/06/2025 9:15 AM EDT Office Visit [facility] [address] [place] [phone] Dave Lazo PA Skin tear of left [...] skin 07/30/2025 9:15 AM EDT Office Visit [facility] [address] [place] [phone] Dave Lazo PA Skin tear of left forearm without complication, initial encounter (Primary Dx); Skin ulcer of forearm with fat layer exposed (CMS/[facility] V24, CMS/HCC V28); Skin tear of left hand without complication, initial encounter; Skin ulcer of hand with fat layer exposed ([facility] V24, [facility] V28); Skin tear of right elbow without complication, initial encounter; Skin ulcer of upper arm, limited to breakdown of skin ([facility] V24, [facility] V28) 07/20/2025 11:28 AM EDT - 07/23/2025 11:13 AM EDT Hospital Encounter [facility] [address] [place] [phone] Henok Carrillo MD Flores, Carlos M, MD Alam, Aroosa, MD Wound cellulitis (Primary Dx) Discharge Disposition: Home-Health Care c from Last 3 Months Immunizations Immunization Administration [...] 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 Asbestosis ([facility] V24, [facility] V28) 07/31/2017 DX:Asbestosis ([facility]) Type 2 diabetes mellitus wit h cataract ([facility] V24, [facility] V28) 03/01/2017 DX:Type 2 diabetes mellitus with cataract ([facility]) Hypercholesterolemia 03/01/2017 DX:Hypercho lesterolemia Hypertension 03/01/2017 DX:Hypertension Loculated pleural effusion 07/31/2017 DX:Lo culated pleural effusion Obstructive sleep apnea syndrome 08/01/2017 DX:Obstructive sleep apnea syndrome Cataract, bilateral 06/27/2018 DX:Cataract, bilateral Coronary artery disease Atrial fibrillation ([facility] V24, [facility] V28) BPH (benign prostatic hyperplasia) Chronic kidney disease (CKD) , stage III (moderate) ([facility] V24, [facility] V28) Family History Medical History Relation Name [...] Sign Reading Time Taken Comments Blood Pressure 142/71 08/27/2025 9:23 AM EDT Pulse 85 08/27/2025 9:23 AM EDT Temperature 35.9 C (96.6 F) 08/27/2025 9:23 AM EDT Respiratory Rate 18 08/27/2025 9:23 AM EDT Oxygen Saturation 90% 08/27/2025 9:23 AM EDT Inhaled Oxygen Concentration - - Weight 101 kg (222 lb) 07/30/2025 9:25 AM EDT Height 177.8 cm (5' 10 ) 07/30/2025 9:25 AM EDT Body Mass Index 31.85 07/30/2025 9:25 AM EDT Plan of Treatment Health Maintenance Due Date Last Done Comments Diabetes: Annual Foot Exam 1955 Diabetes: Annual Retina Eye Exam 1955 Zoster Vaccines (2 of 3) 06/23/2016 04/28/2016 Pneumococcal Vaccine: 50+ Years (2 of 2 - PPSV23, PCV20, or PCV21) 07/13/2017 05/18/2017, 08/06/2013 RSV Immunization Adult Patients (1 - 1-dose 75+ series) 2018 Depression Screening 11/06/2024 COVID-19 Vaccine ( season) 2025 01/05/2021, 12/15/2020 Cholesterol Screening (Lipid Panel) 07/20/2025 Diabetes: Annual Urine Albumin-Creatinine Ratio (uACR) 07/20/2025 Diabetes: Blood Sugar Control Test (HGBA1C) 07/20/2025 Medicare Annual Wellness Visit 07/20/2025 Social Influencers of Health Screening 07/20/2025 Diabetes: Annual GFR (Glomerular Filtration Rate) 07/21/2026 07/21/2025, 07/20/2025 Hypertension/CHF/CAD Annual BMP Blood Test 07/21/2026 07/21/2025, 07/20/2025 Falls Risk Assessment 07/30/2026 07/30/2025 DTaP,Tdap,and Td Vaccines (3 - Td or Tdap) 07/20/2035 07/20/2025, 05/18/2017 Influenza Vaccine Completed 08/11/2025, , 08/04/2023, Additional history exists HIB Vaccines Aged Out No longer eligi [...] Type Associated Problems Recent Progress Patient-Stated? Author Wound volume breakdown reduced by X% by [...] on impact of smoking on wound No Peretti, Dinah, RN Patient and Caregiver Understand Wound Care Education Care Plan Education needed related to ulceration/compr omised skin integrity. Dinah Pepper, per diem registered nurse Procedure Name Priority Date/Time Associated Diagnosis Comments DEBRIDEMENT Routine 08/20/2025 9:30 AM EDT Skin tear of left forearm without complication, subsequent encounter Skin ulcer of forearm, limited to breakdown of skin DEBRIDEMENT Routine 08/13/2025 10:30 AM EDT Skin tear of left forearm without complication, subsequent encounter Skin ulcer of forearm with fat layer exposed DEBRIDEMENT Routine 08/06/2025 9:15 AM EDT Skin tear of left forearm without complication, subsequent encounter Skin ulcer of forearm with fat layer exposed DEBRIDEMENT Routine 07/30/2025 9:15 AM EDT Skin tear of left hand without complication, initial encounter Skin ulcer of hand with fat layer exposed (CMS/HCC V24, CMS/HCC V28) DEBRIDEMENT Routine 07/30/2025 9:15 AM EDT [...] SQ CM Routine 07/20/2025 5:49 PM EDT MA DEBRIDEMENT WOUND PER SESSION EACH ADDITIONAL 20 SQ CM Routine 07/20/2025 5:49 PM EDT MA DEBRIDEMENT WOUND PER SESSION EACH ADDITIONAL 20 SQ CM Routine 07/20/2025 5:49 PM EDT MA DEBRIDEMENT WOUND PER SESSION EACH ADDITIONAL 20 SQ CM Routine 07/20/2025 5:49 PM EDT MA DEBRIDEMENT WOUND PER SESSION EACH ADDITIONAL 20 SQ CM Routine 07/20/2025 5:49 PM EDT MA DEBRIDEMENT WOUND PER SESSION <=20 SQ CM [...] from Last 3 Months Results * Debridement Skin Tear Left Arm (08/20/2025 9:30 AM EDT) Inder Saunders MD - 08/20/2025 9:30 AM EDT Inder Davis MD 08/22/2025 3:54 PM Debridement Skin Tear Left Arm Performed by: GHADA Aguillon Authorized by: GHADA Aguillon Associated wounds: Wound Skin Tear 07/20/25 Arm Left Consent: Consent obtained: Verbal Consent given by: Patient Risks discussed: Yes Time out: Immediately prior to the procedure a time out was called Debridement Details: Performed by: GHADA Type: selective Pain control: Lidocaine 5% Severity of Tissue Pre Debridement: Limited to breakdown of skin Severity of Tissue Post Debridement: Limited to breakdown of skin Time taken: 08/20/2025 9:17 AM Length (cm): 2.6 Width (cm): 0.6 Depth (cm): 0.1 Area (cm^2): 1.23 Time taken: 08/20/2025 9:18 AM Length (cm): 2.6 Width (cm): 0.6 Depth (cm): 0.1 Percent Debrided (%): 100 Surface Area (cm^2): 1.56 Area Debrided (cm^2): 1.56 Volume (cm^3): 0.16 Tissue and other material debrided: dermis and epidermis Devitalized tissue debrided: exudate and fibrin Instrument: Curette Amount of bleeding: none Hemostasis obtained with: Not applicable Procedural pain: Insensate Post-procedural pain: Insensate Response to treatment: Procedure was tolerated well us Dave URRUTIA IN CLINIC/BEDSIDE ORDERABLE S Final Result * Debridement Skin Tear Left Arm (08/13/2025 10:30 AM EDT) Dave Day PA - 08/13/2025 10:30 AM EDT GHADA Aguillon 08/13/2025 11:05 AM Debridement Skin Tear Left Arm Performed by: GHADA Aguillon Authorized by: GHADA Aguillon Associated wounds: Wound Skin Tear 07/20/25 Arm Left Consent: Consent obtained: Verbal Consent given by: Patient Risks discussed: Yes Time out: Immediately prior to the procedure a time out was called Debridement Details: Performed by: GHADA Type: surgical Level: subcutaneous tissue Pain control: Lidocaine 4% Severity of Tissue Pre Debridement: Fat layer exposed Severity of Tissue Post Debridement: Fat layer exposed Time taken: 08/13/2025 10:23 AM Length (cm): 3.2 Width (cm): 0.7 Depth (cm): 0.1 Area (cm^2): 1.76 Time taken: 08/13/2025 10:24 AM Length (cm): 3.2 Width (cm): 0.7 Depth (cm): 0.1 Percent Debrided (%): 100 Surface Area (cm^2): 2.24 Area Debrided (cm^2): 2.24 Volume (cm^3): 0.22 Tissue and other material debrided: hypergranulation and subcutaneous tissue Devitalized tissue debrided: biofilm Instrument: Curette Amount of bleeding: none Hemostasis obtained with: Not applicable Procedural pain: 0 Post-procedural pain: 0 Response to treatment: Procedure was tolerated well Dave URRUTIA IN CLINIC/BEDSIDE ORDERABLE S Final Result * Debridement Skin Tear Left Arm (08/06/2025 9:15 AM EDT) Inder Saunders MD - 08/06/2025 9:15 AM EDT Inder Davis MD 08/14/2025 9:31 AM Debridement Skin Tear Left Arm Performed by: GHADA Aguillon Authorized by: GHADA Aguillon Associated wounds: Wound Skin Tear 07/20/25 Arm Left Consent: Consent obtained: Verbal Consent given by: Patient Risks discussed: Yes Time out: Immediately prior to the procedure a time out was called Debridement Details: Performed by: PA Type: surgical Level: subcutaneous tissue Pain control: Lidocaine 4% Severity of Tissue Pre Debridement: Fat layer exposed Severity of Tissue Post Debridement: Fat layer exposed Time taken: 08/06/2025 9:29 AM Length (cm): 4.1 Width (cm): 1.4 Depth (cm): 0.1 Area (cm^2): 4.51 Time taken: 08/06/2025 9:30 AM Length (cm): 4.1 Width (cm): 1.4 Depth (cm): 0.1 Percent Debrided (%): 100 Surface Area (cm^2): 5.74 Area Debrided (cm^2): 5.74 Volume (cm^3): 0.57 Tissue and other material debrided: hypergranulation and subcutaneous tissue Devitalized tissue debrided: biofilm and slough Instrument: Curette Amount of bleeding: none Hemostasis obtained with: Not applicable Procedural pain: 0 Post-procedural pain: 0 Response to treatment: Procedure was tolerated well Dave URRUTIA IN CLINIC/BEDSIDE ORDERABLE S Final Result * Debridement Traumatic Left;Posterior Hand (07/30/2025 9:15 AM EDT) Inder Saunders MD - 07/30/2025 9:15 AM EDT GHADA Aguillon 07/30/2025 10:23 AM Debridement Traumatic Left;Posterior [...] resultswithin the time period is included. Pathologist [facility] Glucose POCT 174(H) 70 - 100 mg/dL 07/23/2025 7:38 AM EDT [facility] Blood Capillary blood specimen / Unknown 07/23/2025 7:37 AM EDT 07/23/2025 7:39 AM EDT us Rinku Bermudez MD LAB POINT OF CARE TE ST DOCKED DEVICE UNSOLICITED RESULTS Final Result [facility] [address] [place] [address], [place] [phone] * (ABNORMAL) CBC auto differential (07/21/2025 7:09 AM EDT) Only the most recent of2 resultswithin the time period is included. WBC 10.7 4.8 - 10.8 K/[facility] HEMETOLOGY METHOD 07/21/2025 7:36 AM EDT [facility] RBC 4.00(L) 4.50 - 5.50 M/[facility] LAB HEMETOLOGY METHOD 07/21/2025 7:36 AM [facility] Hemoglobin 12.3(L) 13.5 - 17.5 g/dL LAB HEMETOLOGY METHOD 07/21/2025 7:36 AM [facility] Hematocrit 36.9(L) 42.0 - 54.0 % LAB HEMETOLOGY METHOD 07/21/2025 7:36 AM [facility] MCV 92.7 79.0 - 98.0 FL LAB HEMETOLOGY METHOD 07/21/2025 7:36 AM [facility] MCH 30.9 27.0 - 32.0 pcg LAB HEMETOLOGY METHOD 07/21/2025 7:36 AM [facility] MCHC 33.3 32.0 - 37.0 g/dL LAB HEMETOLOGY METHOD 07/21/2025 7:36 AM [facility] RDW 13.2 11.0 - 15.0 % LAB HEMETOLOGY METHOD 07/21/2025 7:36 AM [facility] Platelets 218 130 - 400 K/mcL LAB HEMETOLOGY METHOD 07/21/2025 7:36 AM [facility] MPV 9.5 7.0 - 11.0 FL LAB HEMETOLOGY METHOD 07/21/2025 7:36 AM [facility] NRBC 0.0 <1.0 % LAB HEMETOLOGY METHOD 07/21/2025 7:36 AM [facility] NRBC Absolute 0.00 <0.10 K/mcL LAB HEMETOLOGY METHOD 07/21/2025 7:36 AM [facility] Neutrophils Relative 76.8 % LAB HEMETOLOGY METHOD 07/21/2025 7:36 AM [facility] Lymphocytes Relative 14.2 % LAB HEMETOLOGY METHOD 07/21/2025 7:36 AM [facility] Monocytes Relative 5.9 % LAB HEMETOLOGY METHOD 07/21/2025 7:36 AM EDT [facility] Eosinophils Relative 2.6 % LAB HEMETOLOGY METHOD 07/21/2025 7:36 AM EDT [facility] Basophils Relative 0.1 % LAB HEMETOLOGY METHOD 07/21/2025 7:36 AM EDT [facility] Immature Granulocytes Relative 0.4 % LAB HEMETOLOGY METHOD 07/21/2025 7:36 AM EDT [facility] Neutrophils Absolute 8.19(H) 1.50 - 7.00 K/mcL LAB HEMETOLOGY METHOD 07/21/2025 7:36 AM EDT [facility] Lymphocytes Absolute 1.51 1.00 - 5.00 K/mcL LAB HEMETOLOGY METHOD 07/21/2025 7:36 AM EDT [facility] Monocytes Absolute 0.63 0.20 - 1.00 K/mcL LAB HEMETOLOGY METHOD 07/21/2025 7:36 AM EDT [facility] Eosinophils Absolute 0.28 0.00 - 0.50 K/mcL LAB HEMETOLOGY METHOD 07/21/2025 7:36 AM EDT [facility] Basophils Absolute 0.01 0.00 - 0.20 K/mcL LAB HEMETOLOGY METHOD 07/21/2025 7:36 AM EDT [facility] Immature Granulocytes Absolute 0.04(H) 0.00 - 0.03 K/mcL LAB HEMETOLOGY METHOD 07/21/2025 7:36 AM T [facility] Blood Venous blood specimen / Unknown Venipuncture / Unknown 07/21/2025 7:09 AM EDT 07/21/2025 7:28 AM EDT us Linda URRUTIA LAB BLOOD ORDERABLES Final Resu lt [facility] [address] [place] [address], [place] [phone] * Magnesium (07/21/2025 7:09 AM EDT) [facility] Magnesium 2.2 1.9 - 2.6 mg/dL LAB CHEMISTRY METHOD 07/21/2025 8:01 AM [facility] Blood Venous blood specimen / Unknown Venipuncture / Unknown 07/21/2025 7:09 AM EDT 07/21/2025 7:27 AM EDT us Linda URRUTIA LAB BLOOD ORDERABLES Final Resu lt [facility] [address] [place] [address], [place] [phone] * (ABNORMAL) Basic metabolic panel (07/21/2025 7:09 AM EDT) [facility] Sodium 141 133 - 145 mmol/L LAB CHEMISTRY METHOD 07/21/2025 8:01 AM [facility] Potassium 3.8 3.5 - 5.5 mmol/L LAB CHEMISTRY METHOD 07/21/2025 8:01 AM [facility] Chloride 106 96 - 110 mmol/L LAB CHEMISTRY METHOD 07/21/2025 8:01 AM [facility] CO2 29 21 - 32 mmol/L LAB CHEMISTRY METHOD 07/21/2025 8:01 AM [facility] Anion Gap 6 3 - 11 LAB CHEMISTRY METHOD 07/21/2025 8:01 AM [facility] Glucose 136(H) 70 - 100 mg/dL LAB CHEMISTRY METHOD 07/21/2025 8:01 AM [facility] BUN 29(H) 5 - 25 mg/dL LAB CHEMISTRY METHOD 07/21/2025 8:01 AM [facility] Creatinine 1.73(H) 0.70 - 1.30 mg/dL LAB CHEMISTRY METHOD 07/21/2025 8:01 AM EDT [facility] eGFR 39(L) >=60 mL/min/1. 73m2 LAB CHEMISTRY METHOD 07/21/2025 8:01 AM EDT [facility] Comment:Calculation based on the Chronic Kidney Disease Epidemiology Collaboration (CKD-EPI) equation refit without adjustment for race. BUN/Creatinine Ratio 16.8 LAB CHEMISTRY METHOD 07/21/2025 8:01 AM EDT [facility] Calcium 8.9 8.5 - 10.5 mg/dL LAB CHEMISTRY METHOD 07/21/2025 8:01 AM EDT [facility] Blood Venous blood specimen / Unknown Venipuncture / Unknown 07/21/2025 7:09 AM EDT 07/21/2025 7:27 AM EDT us Linda URRUTIA LAB BLOOD ORDERABLES Final Resu lt Performing Organization Address City/[facility]/ZIP Co de Phone Number [facility] [address] [place] [address], [place] [phone] * MRSA molecular study (07/20/2025 6:07 PM EDT) [facility] MRSA Screen PCR Not Detected Not Detected LAB MICROBIOLOGY METHOD 07/20/2025 7:59 PM EDT [facility] Swab Both anterior nares / Unknown Non-blood Collection / Unknown 07/20/2025 6:07 PM EDT 07/20/2025 6:33 PM EDT us Linda URRUTIA LAB MICROBIOLOGY - GENERAL ORDE RABLES Final Result Performing Organization Address City/[facility]/ZIP Co de Phone Number [facility] [address] [place] [address], [place] [phone] * MA DEBRIDEMENT WOUND PER SESSION <=20 SQ CM, MA DEBRIDEMENT WOUND PER SESSION EACH ADDITIONAL 20SQ CM, MA DEBRIDEMENT WOUND PER SESSION EACH ADDITIONAL 20 SQ CM, MA DEBRIDEMENT WOUND PER SESSION EACH ADDITIONAL 20 SQ CM, MA DEBRIDEMENT WOUND PER SESSION EACH ADDITIONAL 20 [...] alternatives were discussed: yes Risks discussed: Bleeding [place] protocol: Patient identity confirmed: Verbally with patient [...] Signed Date: 07/20/2025 13:11 ET Workstation ID: [id number] Transcribed By: Self Edit Transcribed Date: 07/20/2025 [...] Signed Date: 07/20/2025 13:11 ET Workstation ID: [id number] Transcribed By: Self Edit Transcribed Date: 07/20/2025 13:10 ET us Henok Carrillo MD IMG XR PROCEDURES Final R esult * Blood Culture, Peripheral #2 (07/20/2025 12:27 PM EDT) Only the most recent of2 resultswithin the time period is included. Culture, Blood No growth at 5 days 07/25/2025 2:01 PM EDT [facility] Blood Venous blood specimen / Unknown Venipuncture / Unknown 07/20/2025 12:27 PM EDT 07/20/2025 12:38 PM EDT Henok Carrillo MD LAB MICROBIOLOGY - GENERA L ORDERABLES Final Result Performing Organization Address [facility]/ZIP Co de Phone Number [facility] [address] [place] [address], * (ABNORMAL) C-reactive protein (07/20/2025 12:27 PM EDT) C-Reactive Protein 6.26(H) <=0.50 mg/dL LAB CHEMISTRY METHOD 07/20/2025 3:39 PM EDT [facility] Blood Venous blood specimen / Unknown Venipuncture / Unknown 07/20/2025 12:27 PM EDT 07/20/2025 12:38 PM EDT Oseas Nieves MD LAB BLOOD ORDERABLES Final Re sult Performing Organization Address [facility]/ZIP Co de Phone Number [facility] [address] [place] [address], * Lactate (07/20/2025 12:27 PM EDT) Pathologist [facility] Lactate 1.0 0.4 - 2.0 mmol/L LAB CHEMISTRY METHOD 07/20/2025 1:21 PM EDT [facility] Blood Venous blood specimen / Unknown Venipuncture / Unknown 07/20/2025 12:27 PM EDT 07/20/2025 12:36 PM EDT Henok Carrillo MD LAB BLOOD ORDERABLES Ainsley l Result Performing Organization Address [facility]/ZIP Co de Phone Number [facility] [address] [place] [address], * (ABNORMAL) Comprehensive Metabolic Panel (CMP) (07/20/2025 12:27 PM EDT) Sodium 138 133 - 145 mmol/L LAB CHEMISTRY METHOD 07/20/2025 1:15 PM [facility] Potassium 3.7 3.5 - 5.5 mmol/L LAB CHEMISTRY METHOD 07/20/2025 1:15 PM [facility] Chloride 102 96 - 110 mmol/L LAB CHEMISTRY METHOD 07/20/2025 1:15 PM [facility] CO2 31 21 - 32 mmol/L LAB CHEMISTRY METHOD 07/20/2025 1:15 PM [facility] Anion Gap 5 3 - 11 LAB CHEMISTRY METHOD 07/20/2025 1:15 PM [facility] Glucose 187(H) 70 - 100 mg/dL LAB CHEMISTRY METHOD 07/20/2025 1:15 PM [facility] BUN 35(H) 5 - 25 mg/dL LAB CHEMISTRY METHOD 07/20/2025 1:15 PM [facility] Creatinine 1.85(H) 0.70 - 1.30 mg/dL LAB CHEMISTRY METHOD 07/20/2025 1:15 PM [facility] eGFR 36(L) >=60 mL/min/1. 73m2 LAB CHEMISTRY METHOD 07/20/2025 1:15 PM [facility] Comment:Calculation based on the Chronic Kidney Disease Epidemiology Collaboration (CKD-EPI) equation refit without adjustment for race. BUN/Creatinine Ratio 18.9 LAB CHEMISTRY METHOD 07/20/2025 1:15 PM [facility] Calcium 8.5 8.5 - 10.5 mg/dL LAB CHEMISTRY METHOD 07/20/2025 1:15 PM [facility] AST (SGOT) 28 10 - 42 unit/L LAB CHEMISTRY METHOD 07/20/2025 1:15 PM [facility] ALT (SGPT) 27 10 - 60 unit/L LAB CHEMISTRY METHOD 07/20/2025 1:15 PM [facility] Alkaline Phosphatase 90 42 - 121 unit/L LAB CHEMISTRY METHOD 07/20/2025 1:15 PM EDT [facility] Total Protein 7.5 6.0 - 8.0 g/dL LAB CHEMISTRY METHOD 07/20/2025 1:15 PM EDT [facility] Albumin 2.7(L) 3.2 - 5.0 g/dL LAB CHEMISTRY METHOD 07/20/2025 1:15 PM EDT [facility] Total Bilirubin 0.6 0.0 - 1.4 mg/dL LAB CHEMISTRY METHOD 07/20/2025 1:15 PM EDT [facility] Blood Venous blood specimen / Unknown Venipuncture / Unknown 07/20/2025 12:27 PM EDT 07/20/2025 12:38 PM EDT us Henok Carrillo MD LAB BLOOD ORDERABLES Ainsley l Result [facility] [address] [place] [address], from Last 3 Months Additional Health Concerns Active Problems Noted Date Diagnosed Date Impaired Tissue 07/30/2025 Education needed on impact of smoking on wound 0 07/30/2025 Education needed related to ulceration/compromised skin integrity. 07/30/2025 [place] [id number] [facility] Advance Directives * Full Code - Confirmed [...] currently active code status orders. Care Teams Drapery Maker Relationship Specialty Start Date End Date Physician, Pcp Unknown PCP - General 07/20/25
[2025-09-26 13:55] LABS: MANUAL DIFF FLAG NO
[2025-09-26 13:57] LABS: Hematocrit 39.6 % (42.0-52.0); Hemoglobin 13.5 g/dl (14.0-18.0); Imm Gran Abs Auto 0.02 X10*3/uL (0.00-0.03); Imm Gran Pct Auto 0.2 % (0.0-0.4); Lymphocytes Absolute Auto 1.0 X10*3/uL (1.2-4.9); Mean Corpuscular HGB Conc 34.1 g/dl (31.0-36.0); Mean Corpuscular Hemoglobin 31.5 pg (27.0-33.0); Mean Corpuscular Volume 92.5 fL (80.0-98.0); NRBC Abs Auto 0.000 X10*3/uL (0.0-0.012); NRBC Pct Auto 0.0 /100WBC (0.0-0.2); Platelet Count 219 X10*3/uL (160-400); Red Blood Count 4.28 X10*6/uL (4.60-5.80); White Blood Count 9.0 X10*3/uL (4.8-10.8)
[2025-09-26 14:00] VITALS: BP 144/66; PULSE 78; RESP 18; O2SAT 93
[2025-09-26 14:07] LABS: INTERNATIONAL NORM RATIO 1.1 (0.9-1.1); Partial Thromboplastin Time 32.6 SEC (26.7-34.1); Prothrombin Time 13.5 SEC (11.2-13.5)
[2025-09-26 14:12] LABS: Alanine Aminotransferase 21 U/L (0-40); Albumin Level 3.8 g/dL (3.5-5.0); Alkaline Phosphatase 105 U/L (39-117); Anion Gap 13 (12-20); Aspartate Amino Transferase 25 U/L (5-37); Blood Urea Nitrogen 41 mg/dL (9-16); Calcium 9.2 mg/dL (8.4-10.2); Carbon Dioxide 30 mmol/L (22-29); Chloride 104 mmol/L (96-108); Creatinine Clr Calc Pharmacy 39.6; Estimated Glomerular Filt Rate 38; Potassium 4.1 mmol/L (3.3-5.1); Sodium 143 mmol/L (135-145); Total Protein 7.7 g/dL (6.5-8.0)
[2025-09-26 14:21] LABS: NT Pro B Type Natriuretic Pept 1053.0 pg/mL (<300); Troponin-I High Sensitivity 17.6 ng/L (<3.5-35.0)
[2025-09-26 14:42] LABS: Erythrocyte Sedimentation Rate 82 MM/HR (0-15)
--- NOTE | 2025-09-26 14:57 | ED.EXTPRO ---
HPI - Extremity Problem General Chief complaint: Extremity Injury, Upper Stated complaint: leg pain/swelling Time Seen by Provider: 09/26/25 13:55 Source: patient and family Mode of arrival: ambulatory Limitations: no limitations History of Present Illness ED Provider: GHADA Man HPI Narrative: Chief Complaint: ?My left leg has been swollen and very sore for a couple of weeks, and it?s not getting any better.? History of Present Illness: 80-year-old male with a complex cardiac and pulmonary history presents with 2 weeks of progressive left lower extremity (LLE) swelling, redness, and pain. He awoke one morning two weeks ago with sudden severe pain and swelling of the LLE, which has persisted and worsened. Symptoms localized from the mid-knight to just below the knee and involve the foot. He denies chest pain, shortness of breath, nausea, vomiting, fevers, or chills. No right leg involvement. Duplex ultrasound today was negative for DVT; plain radiograph unremarkable. Patient reports chronic use of torsemide (recently self-increased from 1 to 2 tablets; dose unknown), metoprolol (AM dose recently stopped), and Eliquis for atrial fibrillation. Baseline chronic respiratory failure on 3 L nasal cannula. Noted fissuring/cracks in leg skin likely source of infection. Related Data Home Medications ?Medication ?Instructions ?Recorded ?Confirmed atorvastatin 80 mg tablet 80 mg PO DAILY 12/24/20 08/08/25 insulin glargine 100 unit/mL 30 unit subcut BEDTIME 05/24/22 08/08/25 subcutaneous solution (Lantus U-100 Insulin) Oxygen Home Use 12/08/22 08/08/25 nebulizers 12/08/22 08/08/25 famotidine 20 mg tablet 20 mg PO DAILY 02/07/24 08/08/25 bupropion HCl 150 mg tablet,12 hr 150 mg PO DAILY 10/16/24 08/08/25 sustained-release torsemide 20 mg tablet 20 mg PO DAILY 10/16/24 08/08/25 apixaban 2.5 mg tablet (Eliquis) 2.5 mg PO BID 11/14/24 08/08/25 ascorbate calcium (vitamin C) 500 500 mg PO DAILY 08/08/25 08/08/25 mg tablet ferrous sulfate 325 mg (65 mg 325 mg PO DAILY 08/08/25 08/08/25 iron) tablet magnesium 250 mg tablet 500 mg PO DAILY 08/08/25 08/08/25 metoprolol tartrate 25 mg tablet 12.5 mg PO ONCE 08/08/25 08/08/25 multivitamin 1 tab PO DAILY 08/08/25 08/08/25 omega 0-[id number]-htj-fish oil 120 cap PO 08/08/25 08/08/25 mg-180 mg-500 mg capsule (Fish Oil) sertraline 100 mg tablet 100 mg PO BID 08/08/25 08/08/25 vitamin E (dl, acetate) 45 mg (100 45 mg PO DAILY 08/08/25 08/08/25 unit) capsule Previous Rx's ?Medication ?Instructions ?Recorded cephalexin 500 mg tablet 500 mg PO Q6H 7 days #28 tabs 09/26/25 doxycycline hyclate 100 mg capsule 100 mg PO BID 7 days #14 caps 09/26/25 Allergies Allergy/AdvReac Type Severity Reaction Status Date / Time No Known Allergies (No Known Allergy Verified 09/26/25 12:27 Allergies*) Review of Systems Review of Systems: Review of Systems: ? Constitutional: No fevers, chills reported. ? Cardiovascular: No chest pain. ? Respiratory: No shortness of breath beyond baseline 3 L NC. ? Gastrointestinal: No nausea or vomiting. ? Musculoskeletal/Skin: Left lower leg swelling, redness, and pain for 2 weeks; no right leg symptoms. (Other systems not discussed.) Yes all other systems are reviewed and are negative PMFSH Past Medical History Attestation statement: The following information was validated with the patient. Source: old records reviewed and nursing notes reviewed Medical History (Updated 09/26/25 @ 15:15 by GHADA Flores) Anxiety Atrial fibrillation CKD stage 4 secondary to hypertension Diabetes Paroxysmal atrial fibrillation Coronary artery disease Aortic stenosis Atrial fibrillation, new onset Hypoxia Pulmonary nodules Chronic restrictive lung disease Chronic respiratory failure Pulmonary fibrosis Asbestosis Surgical History (Updated 08/08/25 @ 10:56 by Noel Rock MD) History of colonoscopy (~06/20/18) History of open heart surgery Family History Family History Mother Ovarian cancer Father Heart attack Brother Heart attack Sister Diabetes Social History Social History (Reviewed 05/29/25 @ 10:09 by MORGAN John Housing: [facility] Are you a primary insurance healthcare consultant to a significant other at home: No Do you presently have visiting nurse or other home services: No Alcohol intake: former Year quit: 1989 Patient Tobacco Use Status: Former Tobacco user Tobacco use type: Cigarette Years Smoked: 8 Years - Quit at 22yo e-Cigarette/Vaping Use: Never Used Advance Directives: No Advance Directives Information Provided: Yes service: Yes Current occupational status: retired Physical Exam Exam: Exam: Appearance: Alert.? Oriented X3.? No acute distress.? Head: Normocephalic, atraumatic, no step-offs or deformities Eyes: Pupils equal, round and reactive to light.? Neck: Normal inspection.? Neck supple.? CVS: Normal heart rate and rhythm.? Pulses normal.? Respiratory: No respiratory distress.? Breath sounds normal.? Abdomen: Soft and nontender.? Skin: Skin warm and dry.? Normal skin color.? Normal skin turgor.?+ Left lower leg with erythema from mid-knight extending to foot; notable swelling and tenderness to palpation w/ overlying erythema to same region. Visible fissuring/cracks in skin. Distal lower extremity pulses b/l 2+ Extremities: + 2+ lower extremity edema.? No calf ttp. 5/5 strength to bilateral upper and lower extremities Neuro: Oriented X 3.? No motor deficit.? No sensory deficit. CN 2-12 intact Vital Signs: Vital Signs: Last Vital Signs Temp 97.3 F 09/26/25 12:22 Pulse 78 09/26/25 14:00 Resp 18 09/26/25 14:00 BP 144/66 H 09/26/25 14:00 Pulse Ox 93 09/26/25 14:00 O2 Del Method Room Air 09/26/25 14:00 Oxygen Flow Rate 3 09/26/25 12:22 BMI result Body Mass Index 32.3 vss Course Reevaluation(s) Reevaluation #1: CBC with normocytic anemia. Chemistry with baseline elevation of BUN and creatinine actually slightly better than typical. CRP elevated 0.78 NT pro BNP 1053. Imaging of left tib-fib with them edema and/or cellulitis in the distal thigh and left lower leg with moderate vascular calcifications. Venous duplex no evidence of DVT involving bilateral lower extremities and patient is anticoagulated. Due to elevated BNP will obtain chest x-ray and then patient to be discharged Educated patient on diagnosis and treatment plan, answered all question, patient verbalizes understanding. At this time patient will be discharged home, advised to return with new or worsening symptoms. Educated on worrisome signs and symptoms and when to return. At this time I feel comfortable discharge home. Time: 15:15 Reevaluation #2: XR/XR chest 1V IMPRESSION: No acute cardiopulmonary abnormality. Medical Decision Making Medical Decision Making MDM Narrative: 80-year-old male with multiple comorbidities presenting with cellulitis/skin infection of the left lower extremity superimposed on baseline venous/cardiac edema. DVT ruled out. Will treat empirically with dual oral antibiotics and supportive care. Problem #1: Left lower extremity cellulitis / skin infection Assessment: Erythema, swelling, tenderness from mid-knight to below knee with visible skin fissures; negative DVT imaging; no systemic symptoms. Kidney function acceptable for prescribed antibiotics. Plan: Keflex PO every 6 hours with food ? prescribed course. Doxycycline PO twice daily with food; juvenile counselor on photosensitivity ? avoid prolonged sun exposure. Leg elevation when possible (bed with pillows or chair in front of couch). Keep affected leg dry and open to air; avoid creams/ointments for at least a few days. Compression socks may be continued; monitor skin integrity. Return precautions: increasing redness (especially proximal spread beyond mid-knight), worsening pain, fever, chills, or any new systemic symptoms. Differential Diagnosis Differential Diagnoses: The differential diagnosis associated with the presentation includes Admission/Observation Consideration of admission/observation: Escalation of care including admission/observation considered (No indicationn ) Lab Data [facility] Lab Attestation statement: I reviewed the patient's lab results. 09/26/25 13:43 09/26/25 13:43 Labs: Lab Results 09/26/25 Range/Units 13:43 WBC 9.0 (4.8-10.8) X10*3/uL RBC 4.28 L (4.60-5.80) X10*6/uL Hgb 13.5 L (14.0-18.0) g/dl Hct 39.6 L (42.0-52.0) % MCV 92.5 (80.0-98.0) fL MCH 31.5 (27.0-33.0) pg MCHC 34.1 (31.0-36.0) g/dl RDW 13.4 (11.0-16.0) % Plt Count 219 D (160-400) X10*3/uL MPV 9.5 (9.4-12.4) fL Immature Gran % (Auto) 0.2 (0.0-0.4) % Neut % (Auto) 81.9 H (45-73) % Lymph % (Auto) 10.9 L (20-40) % [place] % (Auto) 5.0 (2-11) % Eos % (Auto) 1.9 (0-4) % Baso % (Auto) 0.1 (0-2) % Lymph # (Auto) 1.0 L (1.2-4.9) X10*3/uL [place] # (Auto) 0.5 (0.1-1.2) X10*3/uL Eos # (Auto) 0.2 (0.0-0.4) X10*3/uL Baso # (Auto) 0.0 (0.0-0.2) X10*3/uL Abs Immat Gran (auto) 0.02 (0.00-0.03) X10*3/uL Absolute Neuts (auto) 7.3 (2.0-8.3) x10*3/uL Absolute Nucleated RBC 0.000 (0.0-0.012) X10*3/uL Nucleated RBC % (auto) 0.0 (0.0-0.2) /100WBC ESR 82 H (0-15) MM/HR PT 13.5 (11.2-13.5) SEC INR 1.1 (0.9-1.1) APTT 32.6 (26.7-34.1) SEC Sodium 143 (135-145) mmol/L Potassium 4.1 (3.3-5.1) mmol/L Chloride 104 (96-108) mmol/L Carbon Dioxide 30 H (22-29) mmol/L Anion Gap 13 (12-20) BUN 41 H (9-16) mg/dL Creatinine 1.72 H (0.5-1.4) mg/dL Estim Creat Clear Calc 39.6 Estimated GFR 38 Random Glucose 278 H (60-115) mg/dL Calcium 9.2 (8.4-10.2) mg/dL Total Bilirubin 0.4 (0.0-1.0) mg/dL AST 25 (5-37) U/L ALT 21 (0-40) U/L Alkaline Phosphatase 105 (39-117) U/L Troponin I High Sens 17.6 D (<3.5-35.0) ng/L C-Reactive Protein 0.78 H (< or = 0.50) mg/dL NT-Pro-B Natriuret Pep 1053.0 H (<300) pg/mL Total Protein 7.7 (6.5-8.0) g/dL Albumin 3.8 (3.5-5.0) g/dL Independent Interpretation I performed an independent interpretation of an: Plain X-Ray (XR/XR tibia fibula LT 2V IMPRESSION: Edema and/or cellulitis is noted in the distal thigh and left lower leg. Moderate vascular calcifications. Mild left knee osteophytes. ) and Ultrasound ( US/US venous duplex LE BI IMPRESSION: No evidence of deep venous thrombosis involving the bilateral lower extremities. ) Radiology Impression Discussion of test interpretation with radiology: I have reviewed the radiologist's reading. External Record Review External record reviewed: Inpatient record, Office record, Outpatient record, Prior outpatient labs, Prior outpatient radiology, Primary care record and Outside ED record Prescription Management I considered prescription management with: Antibiotic Chronic Conditions Patient?s care impacted by: Other (see hpi ) Critical Care Time Critical Care Time Critical Care Time: Yes Total Critical Care Time: 35 Attestation: I attest to this time spent taking care of the patient, obtaining history, physical, reviewing labs, imaging, treatment of patients condition +/- specialist/hospitalist consult +/- procedure Discharge Plan Discharge Clinical Impression: Cellulitis Patient Disposition: Home, Self-Care Instructions: Cellulitis (ED) Additional Instructions: Take your medications as prescribed. If you were prescribed antibiotics today, it is important that you take your medication to their entirety, do not skip any doses, do not finish them early. Follow-up with your primary care provider this week. Return to the emergency department with new or worsening symptoms. Such as fevers, chills, chest pain, shortness of breath, nausea, vomiting, dizziness, headache, vision changes, lethargy In case of emergency call 911 Prescriptions: New doxycycline hyclate 100 mg capsule 100 mg PO BID 7 Days Qty: 14 0RF cephalexin 500 mg tablet 500 mg PO Q6H 7 Days Qty: 28 0RF No Action bupropion HCl 150 mg tablet sustained-release 12 hr 150 mg PO DAILY torsemide 20 mg tablet 20 mg PO DAILY atorvastatin 80 mg tablet 80 mg PO DAILY Lantus U-100 Insulin 100 unit/mL solution 30 unit subcut BEDTIME metoprolol tartrate 25 mg tablet 12.5 mg PO ONCE sertraline 100 mg tablet 100 mg PO BID (DME) nebulizers Misc See Rx Instructions .Route Rx Instructions: As directed (DME) Oxygen Home Use Kit See Rx Instructions .Route Rx Instructions: As directed famotidine 20 mg tablet 20 mg PO DAILY multivitamin Tablet 1 tab PO DAILY ferrous sulfate 325 mg (65 mg iron) tablet 325 mg PO DAILY ascorbate calcium (vitamin C) 500 mg tablet 500 mg PO DAILY magnesium 250 mg tablet 500 mg PO DAILY vitamin E (dl, acetate) 45 mg (100 unit) capsule 45 mg PO DAILY Fish Oil 120-180-500 mg capsule PO Eliquis 2.5 mg tablet 2.5 mg PO BID Print Language: Togolese
[2025-09-26 16:01] VITALS: BP 144/66; PULSE 78; RESP 18; TEMP -17.7; TEMP 0; O2SAT 93
== END 2025-09-26 16:01 | disposition home or self-care (01) ==
PROVIDERS: Physician Assistant; Emergency Provider Emergency Medicine; PCP Student in an Organized Health Care Education/Training Program
DX: L03.116 Cellulitis of left lower limb (principal); R60.0 Localized edema; I44.7 Left bundle-branch block, unspecified; R94.31 Abnormal electrocardiogram [ECG] [EKG]; M79.605 Pain in left leg; R06.02 Shortness of breath; Z87.891 Personal history of nicotine dependence; Z79.899 Other long term (current) drug therapy
CPT/HCPCS: 36415; 71045; 73590; 80053; 83880; 84484; 85025; 85610; 85652; 85730; 86140; 93005; 93970; 99284

== ENCOUNTER → 2025-09-26 12:26 | Outpatient (BNV) | payer MEDICARE, OTHER, SELFPAY | PROVIDERS: Emergency Provider Emergency Medicine; PCP Student in an Organized Health Care Education/Training Program; Visit Provider Radiology Diagnostic Radiology | DX: R79.89 Other specified abnormal findings of blood chemistry (principal) | CPT/HCPCS: 71045 ==

== ENCOUNTER → 2025-09-26 12:30 | Outpatient (BNV) | payer MEDICARE, OTHER, SELFPAY | PROVIDERS: Emergency Provider Emergency Medicine; PCP Student in an Organized Health Care Education/Training Program; Visit Provider Internal Medicine | DX: I45.10 Unspecified right bundle-branch block (principal) | CPT/HCPCS: 93010 ==

== ENCOUNTER 2025-10-14 11:11 | Emergency (ER) | payer MEDICARE, OTHER, SELFPAY ==
--- NOTE | ~2025-10-14 | XR_ITS ---
CLINICAL HISTORY: sob 1 view chest x-ray. Comparison: CR/SR - XR CHEST 1 VIEW - 09/26/25 15:18 EST Findings: Heart size is similar in size. Bibasilar atelectasis and airspace opacities. Underinflated lungs. Bilateral pleural thickening and calcifications, worst of the right lung apex. No acute fracture. Median sternotomy suture wires are intact. The visualized upper abdomen is unremarkable. Impression: Compared to radiograph on September 26, 2025: No significant change. Persistent bilateral pleural thickening. No new consolidation. This document has been electronically signed by: Kimberly Salcido MD on 10/14/2025 18:55:52
[2025-10-14 11:56] VITALS: BP 118/52; PULSE 74; RESP 16; TEMP 36; O2SAT 91; BMI 32.3
--- NOTE | 2025-10-14 11:56 | ED_ITS ---
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 Patient reports that he was given doxycycline, and Keflex in the ED on 09/26/2025. He completed the full 10 day course of antibiotics, and the redness and pain of the lower leg got better. However, after completing the course of antibiotics he noted redness extending up the inner left leg and thigh. The pain has not returned since completing oral antibiotics. He denies any fever, chills at home. No chest pain or pressure, shortness of breath, abdominal pain. He was noted to be borderline hypoxic 91% upon arrival to the ED as his oxygen tank had run out of oxygen. When placed on O2 this improved. Related Data Home Medications ?Medication ?Instructions ?Recorded ?Confirmed atorvastatin 80 mg tablet 80 mg PO DAILY 12/24/2001/28 insulin glargine 100 unit/mL 30 unit subcut BEDTIME 08/08/25 subcutaneous solution (Lantus U-100 Insulin) Oxygen Home Use 12/08/22 08/08/25 nebulizers 12/08/22 08/08/25 famotidine 20 mg tablet 20 mg PO DAILY 02/07/2401/28 bupropion HCl 150 mg tablet,12 hr 150 mg PO DAILY 10/0608/08/25 sustained-release torsemide 20 mg tablet 20 mg PO DAILY 10/16/2401/28 apixaban 2.5 mg tablet (Eliquis) 2.5 mg PO BID 5 08/08/25 ascorbate calcium (vitamin C) 500 500 mg PO DAILY 01/2808/08/25 mg tablet ferrous sulfate 325 mg (65 mg 325 mg PO DAILY 08/08/25 08/08/25 iron) tablet magnesium 250 mg tablet 500 mg PO DAILY 08/08/2501/28 metoprolol tartrate 25 mg tablet 12.5 mg PO ONCE 08/0808/08/25 multivitamin 1 tab PO DAILY 08/08/2501/28 omega 9-uvx-rrm-fish oil 120 cap PO 08/08/25 08/08/25 mg-180 mg-500 mg capsule (Fish Oil) sertraline 100 mg tablet 100 mg PO BID 08/08/2508/08 vitamin E (dl, acetate) 45 mg (100 45 mg PO DAILY 01/2808/08/25 unit) capsule Previous Rx's ?Medication ?Instructions ?Recorded cephalexin 500 mg tablet 500 mg PO Q6H 7 days #28 tab s 09/26/25 doxycycline hyclate 100 mg capsule 100 mg PO BID 7 day s #14 caps 09/26/25 clindamycin HCl 150 mg capsule 450 mg (3 x 150 mg) PO TID 14 days 10/14/25 (Cleocin HCl) #126 caps Allergies Allergy/AdvReac Type Severity Reaction Status Date / Time No Known Allergies (No Known Allergy Verified 10/14/25 12:07 Allergies*) Review of Systems 2 Review of Systems: ROS is otherwise negative unless mentioned in HPI. [facility] Past Medical History Medical History (Updated 10/14/25 @ 20:18 by MATHEUS Lea-) Anxiety Atrial fibrillation CKD stage 4 secondary to hypertension Diabetes Paroxysmal atrial fibrillation Coronary artery disease Aortic stenosis Atrial fibrillation, new onset Hypoxia Pulmonary nodules Chronic restrictive lung disease Chronic respiratory failure Pulmonary fibrosis Asbestosis Surgical History (Updated 08/08/25 @ 10:56 by Noel Rock MD) History of colonoscopy (~06/20/18) History of open heart surgery Family History Family History Mother Ovarian cancer Father Heart attack Brother Heart attack Sister Diabetes Social History Social History Housing: Condominium Are you a primary care team coordinator scheduler to a significant other at home: No Do you presently have visiting nurse or other home services: No Alcohol intake: former Year quit: 1989 Patient Tobacco Use Status: Former Tobacco user Tobacco use type: Cigarette Years Smoked: 8 Years - Quit at 22yo e-Cigarette/Vaping Use: Never Used Advance Directives: No Advance Directives Information Provided: No service: Yes Current occupational status: retired Physical Exam 2 Exam: Exam: Nursing notes and vital signs reviewed. Constitutional: Well-appearing, NAD. Alert. Oriented X3. Eyes: EOMI. ENT: Pharynx normal. Neck: Normal inspection. Neck supple. CVS: Normal heart rate and rhythm. Pulses normal. Respiratory: No respiratory distress. Breath sounds normal. Abdomen: Soft, nontender, nondistended. Skin: Skin warm and dry. Redness to the left lower anterior leg, extending up to the left inner thigh. Warm to the touch. Extremities: 1+ pitting edema bilaterally, worse on left than right. 2+ pedal pulses, 2+ popliteal pulses. Neuro: Oriented X 3. No motor deficit. Vital Signs: Vital Signs: Last Vital Signs Temp 96.8 F 10/14/25 11:56 Pulse 74 10/14/25 11:56 Resp 16 10/14/25 11:56 BP 118/52 L 10/14/25 11:56 Pulse Ox 91 L 10/14/25 11:56 O2 Del Method Nasal Cannula 10/14/25 11:56 Oxygen Flow Rate 3 10/14/25 11:56 BMI result Body Mass Index 32.3 Course Course Course Narrative: 80 yo male with PMH of afib on eliquis, TAVR for aortic stenosis, CAD, CKD, bronchopneumonia, HTN seen here 09/26 neg DVT study of L leg treated with keflex and doxy who notes his rash and the swelling has come back after therapy. He has no fevers. The leg is swollen and red but not hot to the touch. No vascular surgery on the left leg in the past. At this time will obtain labs and infl markers. He was accessed in the L groin via TAVR but has not had issues after the procedure this is new. I suspect a component of venous stasis dermatitis will obtain labs and would consider ammonium lactate. this is a RAPID medical screening exam the rest of the history and physical exam is to be done by the main provider. RUDOLPH 10/14/25 Medications Administered Discontinued Medications Generic Name Dose Route Start Last Admin Trade Name Freq PRN Reason Stop Dose Admin Ceftriaxone Sodium 1 gm/ 50 mls @ 100 mls/hr 10/14/25 18:26 10/14/25 19:41 Sodium Chloride IV 10/14/25 18:55 Infused ONCE ONE Infusion Medical Decision Making Medical Decision Making [facility] Narrative: 6:26 PM 10/14/2025 (Nanette Longo, SHANNON): Upon my initial assessment of this patient, he arrives with his complaining of left-sided leg swelling, redness. There is extensive swelling to the left anterior lower extremity extending up to the left groin. It is warm to the touch. He does have what appears to be peripheral vascular disease, with chronic flaking of the skin to lower extremity. This is likely a component of the not improving cellulitis. He was on antibiotics for 10 days, he completed them about 1 week ago, and did not have antibiotics after that. He reports that the redness never fully went away, but then it progressively continued to worsen when stopping the antibiotics. Today, he noted that the redness extended to his groin, which prompted him to return to the ED. Lab work was ordered by the triage provider showing no leukocytosis, in reassuring BMP. I have no clinical suspicion for sepsis. I do have concerns for failure of outpatient antibiotic treatment for a cellulitis. Pending add on pro-BNP, CXR given the borderline hypoxia upon arrival to the ED, though his oxygen tank had run out. 8:14 PM 10/14/2025 (Nanette Longo, SHANNON): Chest x-ray shows no significant change in comparison to previous. ProBNP is also around his baseline. I had a further extensive discussion with the patient and his who is at bedside. His lab work today is overall reassuring, similar in comparison to previous. I reviewed the chart, and his ED visit on 09/26/2025 he had a venous duplex which showed no evidence of DVT, and all the veins were fully visualized. No indication to repeat this today as he is currently anticoagulated on Eliquis. He tells me he is on anticoagulants for a valve replacement earlier in the year. We discussed that if the redness persists into the upper leg, he will need a repeat ultrasound if swelling also does not improve. I offered them admission to the hospital with concern for failure of outpatient antibiotic treatment. However, the patient prefers to be discharged home at this time. He did have 1 week where he was not on oral antibiotics, and it is possible that the cellulitis had improved but not completely resolved, and this may be failure of outpatient antibiotics. However, it is difficult to know. This also may be recurrent cellulitis. Therefore, we will place him on clindamycin, and have him follow up with infectious disease outpatient, as well as PCP. Blood cultures were obtained today, if blood cultures grow any bacteria, he will be contacted via phone to return to the ED for IV antibiotics and admission. He is agreeable with this as well. He was provided strict return precautions to the ED. If the cellulitis does not improve over the next 24-48 hours, he is to return back to the ED for reassessment. Differential Diagnosis Differential Diagnoses: The differential diagnosis associated with the presentation includes Cellulitis, failure of outpatient antibiotics, DVT Admission/Observation Consideration of admission/observation: Escalation of care including admission/observation considered (Yes, considered an offered, see MDM.) Lab Data [facility] Lab Attestation statement: I reviewed the patient's lab results. (Overall reassuring in comparison to previous.) 10/14/25 12:54 10/14/25 12:54 Labs: Lab Results 10/14/25 10/14/25 Range/Units 12:54 18:53 WBC 7.9 (4.8-10.8) X10*3/uL RBC 4.14 L (4.60-5.80) X10*6/uL Hgb 13.0 L (14.0-18.0) g/dl Hct 38.2 L (42.0-52.0) % MCV 92.3 (80.0-98.0) fL MCH 31.4 (27.0-33.0) pg MCHC 34.0 (31.0-36.0) g/dl RDW 13.3 (11.0-16.0) % Plt Count 151 L D (160-400) X10*3/uL MPV 10.2 (9.4-12.4) fL Immature Gran % (Auto) 0.1 (0.0-0.4) % Neut % (Auto) 74.6 H (45-73) % Lymph % (Auto) 13.2 L (20-40) % [place] % (Auto) 9.1 (2-11) % Eos % (Auto) 2.9 (0-4) % Baso % (Auto) 0.1 (0-2) % Lymph # (Auto) 1.1 L (1.2-4.9) X10*3/uL [place] # (Auto) 0.7 (0.1-1.2) X10*3/uL Eos # (Auto) 0.2 (0.0-0.4) X10*3/uL Baso # (Auto) 0.0 (0.0-0.2) X10*3/uL Abs Immat Gran (auto) 0.01 (0.00-0.03) X10*3/uL Absolute Neuts (auto) 5.9 (2.0-8.3) x10*3/uL Absolute Nucleated RBC 0.000 (0.0-0.012) X10*3/uL Nucleated RBC % (auto) 0.0 (0.0-0.2) /100WBC Sodium 142 (135-145) mmol/L Potassium 4.5 (3.3-5.1) mmol/L Chloride 102 (96-108) mmol/L Carbon Dioxide 31 H (22-29) mmol/L Anion Gap 14 (12-20) BUN 38 H (9-16) mg/dL Creatinine 1.76 H (0.5-1.4) mg/dL Estim Creat Clear Calc 38.7 Estimated GFR 37 Random Glucose 253 H (60-115) mg/dL Lactic Acid 1.6 (0.5-2.0) mmol/L Calcium 9.3 (8.4-10.2) mg/dL C-Reactive Protein 6.36 H (< or = 0.50) mg/dL NT-Pro-B Natriuret Pep 1591.5 H 1717.4 H (<300) pg/mL Independent Interpretation I performed an independent interpretation of an: EKG Interpretation: Rate: 62 Rhythm: NSR [place]: 40/-33/37 Normal P waves. Normal MANJULA. Normal QRS complex. ST T wave : no dep, elev qTC: 468 prior studies:similar The study has been interpreted contemporaneously by me. Radiology Impression Discussion of test interpretation with radiology: I have reviewed the radiologist's reading. Radiologist Impression: Impression: Compared to radiograph on September 26, 2025: No significant change. Persistent bilateral pleural thickening. No new consolidation. Independent Historian Clinical information obtained from an independent historian. History obtained from or confirmed by: Spouse (At bedside) External Record Review External record reviewed: Office record, Outpatient record and Other (Prior ED visit.) Chronic Conditions Patient?s care impacted by: Diabetes and Other (CAD) Social Determinants Patient?s care significantly limited by Social Determinants of Health including: Problems related to primary support group Discharge Plan Discharge Clinical Impression: Cellulitis of left leg Patient Disposition: Home, Self-Care Instructions: Cellulitis (ED) Additional Instructions: As we discussed, your lab work today was overall reassuring and in comparison to previous. We did not repeat a venous duplex today as you had 1 on 09/26/2025. However we discussed that if the swelling and redness continues to extend up your leg you will need a repeat ultrasound outpatient. We also recommended admission to the hospital, but at this time you would prefer to be discharged home. I have prescribed you a course of clindamycin, which should be taken 3 times per day for the course of 14 days. If the skin does not appear to improve in appearance over the next 24-48 hours, I want you to return to the ED for further assessment. Additionally, I have listed an infectious disease doctor for you to see outpatient. We sent blood culture tubes today. If these grow positive, we will contact you via phone to return to the ED. With any worsening complaints at any time, seek re-evaluation in the ED. Prescriptions: New clindamycin HCl [Cleocin HCl] 150 mg capsule 450 mg PO TID 14 Days Qty: 126 0RF No Action bupropion HCl 150 mg tablet sustained-release 12 hr 150 mg PO DAILY torsemide 20 mg tablet 20 mg PO DAILY doxycycline hyclate 100 mg capsule 100 mg PO BID 7 Days Qty: 14 0RF cephalexin 500 mg tablet 500 mg PO Q6H 7 Days Qty: 28 0RF atorvastatin 80 mg tablet 80 mg PO DAILY Lantus U-100 Insulin 100 unit/mL solution 30 unit subcut BEDTIME metoprolol tartrate 25 mg tablet 12.5 mg PO ONCE sertraline 100 mg tablet 100 mg PO BID (DME) nebulizers Misc See Rx Instructions .Route Rx Instructions: As directed (DME) Oxygen Home Use Kit See Rx Instructions .Route Rx Instructions: As directed famotidine 20 mg tablet 20 mg PO DAILY multivitamin Tablet 1 tab PO DAILY ferrous sulfate 325 mg (65 mg iron) tablet 325 mg PO DAILY ascorbate calcium (vitamin C) 500 mg tablet 500 mg PO DAILY magnesium 250 mg tablet 500 mg PO DAILY vitamin E (dl, acetate) 45 mg (100 unit) capsule 45 mg PO DAILY Fish Oil 120-180-500 mg capsule PO Eliquis 2.5 mg tablet 2.5 mg PO BID Referrals: [facility] [place] [facility] [Provider Group, Infectious Disease] Noel Rock MD [Primary Care Provider, Internal Medicine] Print Language: Albanian
[2025-10-14 12:57] LABS: MANUAL DIFF FLAG NO
[2025-10-14 13:04] LABS: Hematocrit 38.2 % (42.0-52.0); Hemoglobin 13.0 g/dl (14.0-18.0); Imm Gran Abs Auto 0.01 X10*3/uL (0.00-0.03); Imm Gran Pct Auto 0.1 % (0.0-0.4); Lymphocytes Absolute Auto 1.1 X10*3/uL (1.2-4.9); Mean Corpuscular HGB Conc 34.0 g/dl (31.0-36.0); Mean Corpuscular Hemoglobin 31.4 pg (27.0-33.0); Mean Corpuscular Volume 92.3 fL (80.0-98.0); NRBC Abs Auto 0.000 X10*3/uL (0.0-0.012); NRBC Pct Auto 0.0 /100WBC (0.0-0.2); Red Blood Count 4.14 X10*6/uL (4.60-5.80); White Blood Count 7.9 X10*3/uL (4.8-10.8)
[2025-10-14 13:09] LABS: Platelet Count 151 X10*3/uL (160-400)
[2025-10-14 13:13] LABS: Anion Gap 14 (12-20); Blood Urea Nitrogen 38 mg/dL (9-16); Calcium 9.3 mg/dL (8.4-10.2); Carbon Dioxide 31 mmol/L (22-29); Chloride 102 mmol/L (96-108); Creatinine Clr Calc Pharmacy 38.7; Estimated Glomerular Filt Rate 37; Potassium 4.5 mmol/L (3.3-5.1); Sodium 142 mmol/L (135-145)
[2025-10-14 13:20] LABS: NT Pro B Type Natriuretic Pept 1591.5 pg/mL (<300)
--- NOTE | 2025-10-14 19:15 | ECG_ITS ---
Test Reason : sob Blood Pressure : */* mmHG Vent. Rate : 62 BPM Atrial Rate : 62 BPM P-R Int : 190 ms QRS Dur : 128 ms QT Int : 462 ms P-R-T Axes : 40 -33 37 degrees QTcB Int : 468 ms Normal sinus rhythm Left axis deviation Non-specific intra-ventricular conduction block Minimal voltage criteria for LVH, may be normal variant ( Enrique product ) Abnormal ECG When compared with ECG of 26-Sep-2025 13:44, No significant change was found Referred By: Nanette Longo Electronically Signed By: URI GARZA MD
[2025-10-14 20:41] VITALS: BP 113/65; PULSE 70; RESP 16; TEMP 36.7; O2SAT 93
[2025-10-14 20:48] VITALS: BP 113/65; PULSE 70; RESP 16; TEMP 36.7; O2SAT 93
--- OUTSIDE RECORDS SUMMARY | 2025-10-14 23:12 | XMS_ITS | Patient Health Record ---
Author Organization [facility] Address [address] [place] [id number] Care Team Providers Care Gig Tender Name Role Phone Khoi (RETIRED) Aldo CALVILLO Primary Care Provider Unavailable Bright Rey Unavailable [phone] Reason For Referral No Information Medications Medication [...] Problem Screening for malignant neoplasm of colon (005807471) Encounter for screening for malignant neoplasm of colon (Z12.11) Active confirmed Problem History of adenomatous polyp of colon (689621460) History of adenomatous polyp of colon (Z86.010) Active confirmed Problem Long-term current use of antiplatelet drug (786829384137110 ) Long-term use of aspirin therapy (Z79.82) Active confirmed Plan Of Treatment Future Test Test Name Order Date COLONOSCOPY 04/24/2018 Insurance Providers Payer Name Payer Address Payer Phone Subscriber Number Group Number Insured Name Patient Relationship to Insured Coverage Start Date Coverage End Date MEDICARE OF [place] [address] [place] [id number] MATEHW ODELL Self - patient is the insured [employer] [address] [place] [phone] [id number] MATHEW ODELL Self - patient is the insured Medical (General) History Medical History History ICD Code NIDDM Denies [place],CVA,renal disease Asbestosis--US Novelty---wears oxygen as ne eded--he sees Dr. Bello Anxiety/Depression HTN GERD---takes Famotidine with good relief Sleep apnea--uses CPAP One small tubular adenoma re moved in 2000--negative followup colonoscopy in 2006 other than some diverticulosis and internal hemorrhoids Surgical History Surgery Date(Month/Year) TURP Cataract-lens implants both eyes
--- OUTSIDE RECORDS SUMMARY | 2025-10-14 23:12 | XMS_ITS | Clinical Summary ---
Author Organization [facility] Address [address] [place] [phone] Phone Care Team Providers Care Hvac Mechanical Engineer Name Role Phone Physician, Pcp Unknown Primary [...] Description 08/27/2025 9:15 AM EDT Office Visit [facility] [address] [place] [phone] Dave Lazo PA Skin tear of left forearm without complication, subsequent encounter (Primary Dx); Skin ulcer of forearm, limited to breakdown of skin 08/20/2025 9:30 AM EDT Office Visit [facility] [address] [place] [phone] Dave Lazo PA Skin tear of left forearm without complication, subsequent encounter (Primary Dx); Skin ulcer of forearm, limited to breakdown of skin 08/13/2025 10:30 AM EDT Office Visit [facility] [address] [place] [phone] Dave Lazo PA Skin tear of left forearm without complication, subsequent encounter (Primary Dx); Skin ulcer of forearm with fat layer exposed 08/06/2025 9:15 AM EDT Office Visit [facility] [address] [place] [phone] Dave Lazo PA Skin tear of left [...] skin 07/30/2025 9:15 AM EDT Office Visit [facility] [address] [place] [phone] Dave Lazo PA Skin tear of left forearm without complication, initial encounter (Primary Dx); Skin ulcer of forearm with fat layer exposed ([facility] V24, CMS/HCC V28); Skin tear of left hand without complication, initial encounter; Skin ulcer of hand with fat layer exposed ([facility] V24, [facility] V28); Skin tear of right elbow without complication, initial encounter; Skin ulcer of upper arm, limited to breakdown of skin ([facility] V24, [facility] V28) 07/20/2025 11:28 AM EDT - 07/23/2025 11:13 AM EDT Hospital Encounter [facility] [address] [place] [phone] Henok Carrillo MD Flores, Carlos M, MD [...] 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 Asbestosis ([facility] V24, [facility] V28) 07/31/2017 DX:Asbestosis ([facility]) Type 2 diabetes mellitus wit h cataract ([facility] V24, [facility] V28) 03/01/2017 DX:Type 2 diabetes mellitus with cataract ([facility]) Hypercholesterolemia 03/01/2017 DX:Hypercho lesterolemia Hypertension 03/01/2017 DX:Hypertension Loculated pleural effusion 07/31/2017 DX:Lo culated pleural effusion Obstructive sleep apnea syndrome 08/01/2017 DX:Obstructive sleep apnea syndrome Cataract, bilateral 06/27/2018 DX:Cataract, bilateral Coronary artery disease Atrial fibrillation ([facility] V24, [facility] V28) BPH (benign prostatic hyperplasia) Chronic kidney disease (CKD) , stage III (moderate) ([facility] V24, [facility] V28) Family History Medical History Relation Name [...] on file Sexual Orientation Not on file Last Filed Vital Signs Vital Sign Reading [...] on impact of smoking on wound No Jenniferi, Dinah, RN Patient and Caregiver Understand Wound Care Education Care Plan Education needed related to ulceration/compr omised skin integrity. Dinah Pepper, registered nurse fetal Procedure Name Priority Date/Time Associated Diagnosis Comments [...] SQ CM Routine 07/20/2025 5:49 PM EDT AL DEBRIDEMENT WOUND PER SESSION EACH ADDITIONAL 20 SQ CM Routine 07/20/2025 5:49 PM EDT AL DEBRIDEMENT WOUND PER SESSION EACH ADDITIONAL 20 SQ CM Routine 07/20/2025 5:49 PM EDT AL DEBRIDEMENT WOUND PER SESSION EACH ADDITIONAL 20 SQ CM Routine 07/20/2025 5:49 PM EDT AL DEBRIDEMENT WOUND PER SESSION EACH ADDITIONAL 20 SQ CM Routine 07/20/2025 5:49 PM EDT AL DEBRIDEMENT WOUND PER SESSION <=20 SQ CM [...] resultswithin the time period is included. Pathologist [facility] Glucose POCT 174(H) 70 - 100 mg/dL 07/23/2025 7:38 AM EDT [facility] Blood Capillary blood specimen / Unknown 07/23/2025 7:37 AM EDT 07/23/2025 7:39 AM EDT us Rinku Bermudez MD LAB POINT OF CARE TE ST DOCKED DEVICE UNSOLICITED RESULTS Final Result [facility] [address] [place] [address], [place] [phone] * (ABNORMAL) CBC auto differential (07/21/2025 7:09 AM EDT) Only the most recent of2 resultswithin the time period is included. WBC 10.7 4.8 - 10.8 K/[facility] HEMETOLOGY METHOD 07/21/2025 7:36 AM EDT [facility] RBC 4.00(L) 4.50 - 5.50 M/[facility] HEMETOLOGY METHOD 07/21/2025 7:36 AM [facility] Hemoglobin 12.3(L) 13.5 - 17.5 g/dL LAB HEMETOLOGY METHOD 07/21/2025 7:36 AM [facility] Hematocrit 36.9(L) 42.0 - 54.0 % LAB HEMETOLOGY METHOD 07/21/2025 7:36 AM [facility] MCV 92.7 79.0 - 98.0 FL LAB HEMETOLOGY METHOD 07/21/2025 7:36 AM [facility] MCH 30.9 27.0 - 32.0 pcg LAB HEMETOLOGY METHOD 07/21/2025 7:36 AM [facility] MCHC 33.3 32.0 - 37.0 g/dL LAB HEMETOLOGY METHOD 07/21/2025 7:36 AM [facility] RDW 13.2 11.0 - 15.0 % LAB HEMETOLOGY METHOD 07/21/2025 7:36 AM [facility] Platelets 218 130 - 400 K/mcL LAB HEMETOLOGY METHOD 07/21/2025 7:36 AM [facility] MPV 9.5 7.0 - 11.0 FL LAB HEMETOLOGY METHOD 07/21/2025 7:36 AM [facility] NRBC 0.0 <1.0 % LAB HEMETOLOGY METHOD 07/21/2025 7:36 AM [facility] NRBC Absolute 0.00 <0.10 K/mcL LAB HEMETOLOGY METHOD 07/21/2025 7:36 AM [facility] Neutrophils Relative 76.8 % LAB HEMETOLOGY METHOD 07/21/2025 7:36 AM [facility] Lymphocytes Relative 14.2 % LAB HEMETOLOGY METHOD 07/21/2025 7:36 AM [facility] Monocytes Relative 5.9 % LAB HEMETOLOGY METHOD 07/21/2025 7:36 AM EDT [facility] Eosinophils Relative 2.6 % LAB HEMETOLOGY METHOD 07/21/2025 7:36 AM EDT [facility] Basophils Relative 0.1 % LAB HEMETOLOGY METHOD 07/21/2025 7:36 AM EDT [facility] Immature Granulocytes Relative 0.4 % LAB HEMETOLOGY METHOD 07/21/2025 7:36 AM EDT [facility] Neutrophils Absolute 8.19(H) 1.50 - 7.00 K/mcL LAB HEMETOLOGY METHOD 07/21/2025 7:36 AM EDT [facility] Lymphocytes Absolute 1.51 1.00 - 5.00 K/mcL LAB HEMETOLOGY METHOD 07/21/2025 7:36 AM EDT [facility] Monocytes Absolute 0.63 0.20 - 1.00 K/mcL LAB HEMETOLOGY METHOD 07/21/2025 7:36 AM EDT [facility] Eosinophils Absolute 0.28 0.00 - 0.50 K/mcL LAB HEMETOLOGY METHOD 07/21/2025 7:36 AM EDT [facility] Basophils Absolute 0.01 0.00 - 0.20 K/mcL LAB HEMETOLOGY METHOD 07/21/2025 7:36 AM EDT [facility] Immature Granulocytes Absolute 0.04(H) 0.00 - 0.03 K/mcL LAB HEMETOLOGY METHOD 07/21/2025 7:36 AM T [facility] Blood Venous blood specimen / Unknown Venipuncture / Unknown 07/21/2025 7:09 AM EDT 07/21/2025 7:28 AM EDT us Linda URRUTIA LAB BLOOD ORDERABLES Final Resu lt [facility] [address] [place] [address], [place] [phone] * Magnesium (07/21/2025 7:09 AM EDT) [facility] Magnesium 2.2 1.9 - 2.6 mg/dL LAB CHEMISTRY METHOD 07/21/2025 8:01 AM [facility] Blood Venous blood specimen / Unknown Venipuncture / Unknown 07/21/2025 7:09 AM EDT 07/21/2025 7:27 AM EDT us Linda URRUTIA LAB BLOOD ORDERABLES Final Resu lt [facility] [address] [place] [address], [place] [phone] * (ABNORMAL) Basic metabolic panel (07/21/2025 7:09 AM EDT) [facility] Sodium 141 133 - 145 mmol/L LAB CHEMISTRY METHOD 07/21/2025 8:01 AM [facility] Potassium 3.8 3.5 - 5.5 mmol/L LAB CHEMISTRY METHOD 07/21/2025 8:01 AM [facility] Chloride 106 96 - 110 mmol/L LAB CHEMISTRY METHOD 07/21/2025 8:01 AM [facility] CO2 29 21 - 32 mmol/L LAB CHEMISTRY METHOD 07/21/2025 8:01 AM [facility] Anion Gap 6 3 - 11 LAB CHEMISTRY METHOD 07/21/2025 8:01 AM [facility] Glucose 136(H) 70 - 100 mg/dL LAB CHEMISTRY METHOD 07/21/2025 8:01 AM [facility] BUN 29(H) 5 - 25 mg/dL LAB CHEMISTRY METHOD 07/21/2025 8:01 AM [facility] Creatinine 1.73(H) 0.70 - 1.30 mg/dL LAB CHEMISTRY METHOD 07/21/2025 8:01 AM EDT [facility] eGFR 39(L) >=60 mL/min/1. 73m2 LAB CHEMISTRY METHOD 07/21/2025 8:01 AM EDT [facility] Comment:Calculation based on the Chronic Kidney Disease Epidemiology Collaboration (CKD-EPI) equation refit without adjustment for race. BUN/Creatinine Ratio 16.8 LAB CHEMISTRY METHOD 07/21/2025 8:01 AM EDT [facility] Calcium 8.9 8.5 - 10.5 mg/dL LAB CHEMISTRY METHOD 07/21/2025 8:01 AM EDT [facility] Blood Venous blood specimen / Unknown Venipuncture / Unknown 07/21/2025 7:09 AM EDT 07/21/2025 7:27 AM EDT us Linda URRUTIA LAB BLOOD ORDERABLES Final Resu lt Performing Organization Address [place]/[facility]/ZIP Co de Phone Number [facility] [address] [place] [address], [place] [phone] * MRSA molecular study (07/20/2025 6:07 PM EDT) [facility] MRSA Screen PCR Not Detected Not Detected LAB MICROBIOLOGY METHOD 07/20/2025 7:59 PM EDT [facility] Swab Both anterior nares / Unknown Non-blood Collection / Unknown 07/20/2025 6:07 PM EDT 07/20/2025 6:33 PM EDT us Linda URRUTIA LAB MICROBIOLOGY - GENERAL ORDE RABLES Final Result Performing Organization Address [place]/ZIP Co de Phone Number [facility] [address] [place] [address], [place] [phone] * AL DEBRIDEMENT WOUND PER SESSION <=20 SQ CM, AL DEBRIDEMENT WOUND PER SESSION EACH ADDITIONAL 20SQ CM, AL DEBRIDEMENT WOUND PER SESSION EACH ADDITIONAL 20 SQ CM, AL DEBRIDEMENT WOUND PER SESSION EACH ADDITIONAL 20 SQ CM, AL DEBRIDEMENT WOUND PER SESSION EACH ADDITIONAL 20 [...] alternatives were discussed: yes Risks discussed: Bleeding [place] protocol: Patient identity confirmed: Verbally with patient [...] Signed Date: 07/20/2025 13:11 ET Workstation ID: [id number] Transcribed By: Self Edit Transcribed Date: 07/20/2025 [...] Signed Date: 07/20/2025 13:11 ET Workstation ID: [id number] Transcribed By: Self Edit Transcribed Date: 07/20/2025 13:10 ET us Henok Carrillo MD IMG XR PROCEDURES Final R esult * Blood Culture, Peripheral #2 (07/20/2025 12:27 PM EDT) Only the most recent of2 resultswithin the time period is included. Culture, Blood No growth at 5 days 07/25/2025 2:01 PM EDT [facility] Blood Venous blood specimen / Unknown Venipuncture / Unknown 07/20/2025 12:27 PM EDT 07/20/2025 12:38 PM EDT us Henok Carrillo MD LAB MICROBIOLOGY - GENERA L ORDERABLES Final Result Performing Organization Address City/[facility]/ZIP Co de Phone Number [facility] [address] [place] [address], * (ABNORMAL) C-reactive protein (07/20/2025 12:27 PM EDT) C-Reactive Protein 6.26(H) <=0.50 mg/dL LAB CHEMISTRY METHOD 07/20/2025 3:39 PM EDT [facility] Blood Venous blood specimen / Unknown Venipuncture / Unknown 07/20/2025 12:27 PM EDT 07/20/2025 12:38 PM EDT Oseas Nieves MD LAB BLOOD ORDERABLES Final Re sult Performing Organization Address [place]/ZIP Co de Phone Number [facility] [address] [place] [address], * Lactate (07/20/2025 12:27 PM EDT) Lactate 1.0 0.4 - 2.0 mmol/L LAB CHEMISTRY METHOD 07/20/2025 1:21 PM EDT [facility] Blood Venous blood specimen / Unknown Venipuncture / Unknown 07/20/2025 12:27 PM EDT 07/20/2025 12:36 PM EDT Henok Carrillo MD LAB BLOOD ORDERABLES Ainsley l Result Performing Organization Address [place]/ZIP Co de Phone Number [facility] [address] [place] [address], * (ABNORMAL) Comprehensive Metabolic Panel (CMP) (07/20/2025 12:27 PM EDT) Sodium 138 133 - 145 mmol/L LAB CHEMISTRY METHOD 07/20/2025 1:15 PM EDT [facility] Potassium 3.7 3.5 - 5.5 mmol/L LAB CHEMISTRY METHOD 07/20/2025 1:15 PM [facility] Chloride 102 96 - 110 mmol/L LAB CHEMISTRY METHOD 07/20/2025 1:15 PM [facility] CO2 31 21 - 32 mmol/L LAB CHEMISTRY METHOD 07/20/2025 1:15 PM [facility] Anion Gap 5 3 - 11 LAB CHEMISTRY METHOD 07/20/2025 1:15 PM [facility] Glucose 187(H) 70 - 100 mg/dL LAB CHEMISTRY METHOD 07/20/2025 1:15 PM [facility] BUN 35(H) 5 - 25 mg/dL LAB CHEMISTRY METHOD 07/20/2025 1:15 PM [facility] Creatinine 1.85(H) 0.70 - 1.30 mg/dL LAB CHEMISTRY METHOD 07/20/2025 1:15 PM [facility] eGFR 36(L) >=60 mL/min/1. 73m2 LAB CHEMISTRY METHOD 07/20/2025 1:15 PM [facility] Comment:Calculation based on the Chronic Kidney Disease Epidemiology Collaboration (CKD-EPI) equation refit without adjustment for race. BUN/Creatinine Ratio 18.9 LAB CHEMISTRY METHOD 07/20/2025 1:15 PM [facility] Calcium 8.5 8.5 - 10.5 mg/dL LAB CHEMISTRY METHOD 07/20/2025 1:15 PM [facility] AST (SGOT) 28 10 - 42 unit/L LAB CHEMISTRY METHOD 07/20/2025 1:15 PM [facility] ALT (SGPT) 27 10 - 60 unit/L LAB CHEMISTRY METHOD 07/20/2025 1:15 PM [facility] Alkaline Phosphatase 90 42 - 121 unit/L LAB CHEMISTRY METHOD 07/20/2025 1:15 PM EDT [facility] Total Protein 7.5 6.0 - 8.0 g/dL LAB CHEMISTRY METHOD 07/20/2025 1:15 PM EDT [facility] Albumin 2.7(L) 3.2 - 5.0 g/dL LAB CHEMISTRY METHOD 07/20/2025 1:15 PM EDT [facility] Total Bilirubin 0.6 0.0 - 1.4 mg/dL LAB CHEMISTRY METHOD 07/20/2025 1:15 PM EDT [facility] Blood Venous blood specimen / Unknown Venipuncture / Unknown 07/20/2025 12:27 PM EDT 07/20/2025 12:38 PM EDT us Henok Carrillo MD LAB BLOOD ORDERABLES Ainsley l Result [facility] [address] [place] [address], from Last 3 Months Additional Health Concerns Active Problems Noted Date Diagnosed Date Impaired Tissue 07/30/2025 Education needed on impact of smoking on wound 0 07/30/2025 Education needed related to ulceration/compromised skin integrity. 07/30/2025 Insurance MEDICARE [facility] Advance Directives * Full Code - [...] currently active code status orders. Care Teams Hvac Mechanical Engineer Relationship Specialty Start Date End Date Physician, Pcp Unknown PCP - General 07/20/25
== END 2025-10-14 20:49 | disposition home or self-care (01) ==
PROVIDERS: Emergency Medicine; Nurse Practitioner; Emergency Provider Emergency Medicine; PCP Student in an Organized Health Care Education/Training Program
DX: L03.116 Cellulitis of left lower limb (principal); R60.0 Localized edema; R06.02 Shortness of breath; R94.31 Abnormal electrocardiogram [ECG] [EKG]; I12.9 Hypertensive chronic kidney disease with stage 1 through stage 4 chronic kidney disease, or unspecified chronic kidney disease; E11.22 Type 2 diabetes mellitus with diabetic chronic kidney disease; N18.4 Chronic kidney disease, stage 4 (severe); I25.10 Atherosclerotic heart disease of native coronary artery without angina pectoris; Z95.1 Presence of aortocoronary bypass graft
CPT/HCPCS: 36415; 71045; 80048; 83605; 83880; 85025; 86140; 87040; 93005; 96365; 99284; 99285; J0696

== ENCOUNTER → 2025-10-14 19:15 | Outpatient (BNV) | payer MEDICARE, OTHER, SELFPAY | PROVIDERS: Emergency Provider Emergency Medicine; PCP Student in an Organized Health Care Education/Training Program; Visit Provider Internal Medicine Cardiovascular Disease | DX: I45.4 Nonspecific intraventricular block (principal) | CPT/HCPCS: 93010 ==

== ENCOUNTER 2025-10-20 09:55 | Outpatient (AMB) | payer MEDICARE, OTHER, SELFPAY ==
[2025-10-20 10:06] VITALS: BP 126/70; PULSE 76; BMI 31.9
--- NOTE | 2025-10-20 10:06 | A.OFFVIS_ITS ---
Vital Signs 3 10/20/25 10:06 Height 5 ft 10 in Weight 222 lb BMI 31.9 BP 126/70 Pulse 76 Intake Visit Reasons: ER reff cellulitis on clindamycin Allergies No Known Allergies (No Known Allergies*) Allergy (Verified 10/20/25 10:07) HPI Comments Details: History of Present Illness The patient is an 80 year old male presenting for evaluation of persistent cellulitis. He noticed redness and erythema in his left leg and was seen by his primary care provider in August. The redness worsened at the end of September, prompting a visit to the emergency room. On September 26, he was treated with Keflex 500 mg every 6 hours and doxycycline 100 mg every 12 hours, both for 7 days. He did not improve after taking both medications for a week. He was then started on clindamycin 450 mg three times a day for 10 days, beginning on October 14, and has noted some improvement. He continues to have some scaliness and erythema on his posterior leg but denies any fever or chills. The patient's past medical history is significant for chronic kidney disease and renal insufficiency. He reports wearing compression stockings. Results [facility] Medical History (Updated 10/15/25 @ 00:01 by Galina Fernandes) Anxiety Atrial fibrillation CKD stage 4 secondary to hypertension Diabetes Paroxysmal atrial fibrillation Coronary artery disease Aortic stenosis Atrial fibrillation, new onset Hypoxia Pulmonary nodules Chronic restrictive lung disease Chronic respiratory failure Pulmonary fibrosis Asbestosis Surgical History (Updated 08/08/25 @ 10:56 by Noel Rock MD) History of colonoscopy (~06/20/18) History of open heart surgery Family History Mother Ovarian cancer Father Heart attack Brother Heart attack Sister Diabetes Social History Housing: Condominium Are you a primary interior plant caretaker to a significant other at home: No Do you presently have visiting nurse or other home services: No Alcohol intake: former Year quit: 1989 Patient Tobacco Use Status: Former Tobacco user Tobacco use type: Cigarette Years Smoked: 8 Years - Quit at 22yo e-Cigarette/Vaping Use: Never Used service: Yes Current occupational status: retired Review of Systems Narrative Review of Systems - Integumentary: Reports resolving redness, erythema, and scaliness on the left leg. - Constitutional: Denies fever and chills. Physical Exam Exam Exam: Physical Exam - Vitals: Stable. - HEENT: Oropharynx is clear. - Lungs: Clear. - Cardiovascular: Regular rate and rhythm. - Abdomen: Soft, non-tender. - Extremities: The left leg shows resolving erythema. There is no evidence of tinea pedis. Vital Signs: Last Vital Signs Pulse 76 10/20/25 10:06 BP 126/70 10/20/25 10:06 BMI result Body Mass Index 31.9 Const Other: Assessment & Plan Assessment & Plan (1) CKD stage 4 secondary to hypertension: Comment: - Advise monitoring renal function regularly. - Baseline creatinine between 1.9 and 2.1 - Discussed significant vigilance with blood pressure and glycemic control. - Recommended nephrology referral for comprehensive CKD management (Patient denied [facility] and would like to follow up at the NH) Code(s): I12.9 - Hypertensive chronic kidney disease with stage 1 through stage 4 chronic kidney disease, or unspecified chronic kidney disease; N18.4 - Chronic kidney disease, stage 4 (severe) Category: Medical Plan Plan Patient was informed and verbally consented to the use of an ambient scribe for clinic note documentation during this visit. 1. Cellulitis of left lower limb L03.116 The patient's persistent cellulitis of the left leg, which is contributed to by edema and venostasis changes, is improving with the current clindamycin regimen. He will complete a 14-day course of clindamycin. He was advised to monitor for diarrhea. Follow-up will be with his primary care provider upon completion of the antibiotic course. 2. Chronic kidney disease, unspecified N18.9 The patient's history of chronic kidney disease makes him a poor candidate for prophylactic antibiotics such as penicillin for recurrent cellulitis. This will be managed by his primary care provider. Discussion Notes I explained to the patient that his left leg cellulitis appears to be improving on his current antibiotic, clindamycin. I informed him that underlying edema and venostasis changes are contributing factors. I recommended he complete a 14-day course of the antibiotic and to watch for diarrhea as a potential side effect. I discussed that due to his chronic kidney disease, he is not a good candidate for prophylactic penicillin. The plan is for him to follow up with his primary care doctor after finishing the antibiotics. Medical Decision Making The patient is an 80-year-old male with persistent left leg cellulitis. His condition failed to resolve with an initial course of Keflex and doxycycline. He is showing clinical improvement on his current regimen of clindamycin. Physical exam shows resolving erythema, and underlying contributing factors include edema and venostasis changes. There is no evidence of a fungal source like tinea pedis. Given his improvement, the decision is to continue his current therapy with a full 14-day course of clindamycin. Prophylactic antibiotics are contraindicated due to his chronic kidney disease. The patient will monitor for side effects and follow up with his primary care for continued management. Patient Instructions - Finish the entire 14-day course of your clindamycin antibiotic. - Watch for any diarrhea. If it develops, please contact your doctor. - Schedule a follow-up visit with your primary care doctor after you have finished the antibiotic. - Continue to wear your compression stockings. Coding Level of Care Code New Pt Level 3 (37368) Diagnoses CKD stage 4 secondary to hypertension I12.9; N18.4
== END 2025-10-20 10:34 | disposition home or self-care (01) ==
LOC: HO.HID 09:55
PROVIDERS: PCP Student in an Organized Health Care Education/Training Program; Visit Provider Internal Medicine
DX: I12.9 Hypertensive chronic kidney disease with stage 1 through stage 4 chronic kidney disease, or unspecified chronic kidney disease (principal); N18.4 Chronic kidney disease, stage 4 (severe)
CPT/HCPCS: 99203

== ENCOUNTER → 2025-10-20 09:55 | Outpatient (BNVA) | payer MEDICARE, OTHER, SELFPAY | PROVIDERS: PCP Student in an Organized Health Care Education/Training Program; Visit Provider Internal Medicine | DX: L03.116 Cellulitis of left lower limb (principal); I12.9 Hypertensive chronic kidney disease with stage 1 through stage 4 chronic kidney disease, or unspecified chronic kidney disease; N18.4 Chronic kidney disease, stage 4 (severe); Z79.2 Long term (current) use of antibiotics | CPT/HCPCS: 99202 ==